=== PATIENT | male | born 1960 | race Caucasian/White ===

== ENCOUNTER 2017-06-27 13:50 | Inpatient (IN) | payer OTHER, MEDICARE, SELFPAY ==
[2017-07-01 19:44] VITALS: BMI 45.9
--- NOTE | 2017-07-02 03:36 | PC.NURSE ---
PT STATES HE FEELS BLOOD SUGAR IS LOW. [id number]. PT STATES HE IS BEEN SWEATING. REQUESTED PEANUT BUTTER AND RAINA CRACKERS. WILL CONTINUE TO MONITOR.
[2017-07-02 04:00] VITALS: BP 114/58; PULSE 96; RESP 20; TEMP 36.6; O2SAT 94
--- NOTE | 2017-07-02 04:09 | PC.NURSE ---
PT SLEPT TIL AROUND 0330 WHEN HE FELT SUGAR HAD DROPPED. PT HAD COMPLAINTS OF BACK PAIN, GIVEN TRAMADOL AND FLEXIRIL ORDERED. REQUESTED BENADRYL FOR SLEEP. PT GIVEN TYLENOL AT 0330 FOR BACK PAIN. NO SOB REPORTED. PT INDEPENDENT WITH ADLS.
[2017-07-02 06:48] LABS: INR 1.53 (0.9-1.1); Prothrombin Time 16.6 seconds (9.4-11.8)
[2017-07-02 08:00] VITALS: BP 129/81; PULSE 75; RESP 20; TEMP 36.4; O2SAT 94
--- NOTE | 2017-07-02 09:10 | P.PN_ITS ---
Internal Medicine - PN: Subj *Date: 07/02/17 *Time: 09:07 Exam Vital signs and Labs for Last 24 Hours: Temp Pulse Resp BP Pulse Ox 97.9 F 96 H 20 114/58 94 L 07/02/17 04:00 07/02/17 04:00 07/02/17 04:00 07/02/17 04:00 07/02/17 04:00 Short CBC 06/30/17 Range/Units 05:40 WBC 8.7 (4.8 - 10.8) K/MM3 Hgb 14.1 (14.1 - 18.0) g/dL Hct 43.8 (42.0 - 52.0) % Plt Count 196 (142 - 424) K/mm3 BMP 06/30/17 05:40 Sodium 136 Potassium 3.8 Chloride 100 Carbon Dioxide 30 BUN 24 H Creatinine 0.9 Glucose 193 H Calcium 9.3 Urine 06/29/17 Range/Units 09:20 Urine Color YELLOW (YELLOW - ) Urine Appearance CLEAR (CLEAR - ) Urine pH 5.5 (5.0 - 8.5) Ur Specific [place] 1.025 (1.005 - 1.030) Urine Protein NEGATIVE (NEG - ) mg/dL
--- NOTE | 2017-07-02 10:34 | P.PN_ITS ---
Internal Medicine - PN: Subj *Date: 07/02/17 *Time: 10:31 Interval history: No new complaints. Denies chest pain or hemoptysis Exam Vital signs and Labs for Last 24 Hours: Temp Pulse Resp BP Pulse Ox 97.6 F 75 20 129/81 94 L 07/02/17 08:00 07/02/17 08:00 07/02/17 08:00 07/02/17 08:00 07/02/17 08:00 Short CBC 06/30/17 Range/Units 05:40 WBC 8.7 (4.8 - 10.8) K/MM3 Hgb 14.1 (14.1 - 18.0) g/dL Hct 43.8 (42.0 - 52.0) % Plt Count 196 (142 - 424) K/mm3 BMP 06/30/17 05:40 Sodium 136 Potassium 3.8 Chloride 100 Carbon Dioxide 30 BUN 24 H Creatinine 0.9 Glucose 193 H Calcium 9.3 Urine 06/29/17 Range/Units 09:20 Urine Color YELLOW (YELLOW - ) Urine Appearance CLEAR (CLEAR - ) Urine pH 5.5 (5.0 - 8.5) Ur Specific [place] 1.025 (1.005 - 1.030) Urine Protein NEGATIVE (NEG - ) mg/dL I & O for Last 24 hours: Intake & Output 06/29/17 06/30/17 07/01/17 07/02/17 11:59 11:59 11:59 11:59 Intake Total 360 / 360 Balance 360 / 360 no acute distress - *Routine Respiratory Exam Present: CTA bilaterally - *Routine Cardiovascular Exam Present: RRR Comments: no murmur Assessment and Plan (1) Acute pulmonary embolus Current visit: Yes Status: Acute Category: Medical Code(s): I26.99 - Other pulmonary embolism without acute cor pulmonale (2) Type 2 diabetes mellitus Current visit: Yes Status: Acute Category: Medical Code(s): E11.9 - Type 2 diabetes mellitus without complications (3) DVT (deep venous thrombosis) Current visit: Yes Status: Acute Category: Medical Code(s): I82.409 - Acute embolism and thrombosis of unspecified deep veins of unspecified lower extremity (4) HBP (high blood pressure) Current visit: Yes Status: Acute Category: Medical Code(s): I10 - Essential (primary) hypertension - Assessment and plan all Dx Assessment and Plan for all problems:: Discharge home on Lovenox and Coumadin pending therapeutic INR
[2017-07-03 10:18] LABS: POC Glucose,Bedside 126 mg/dL
[2017-07-03 11:46] LABS: POC Glucose,Bedside 160 mg/dL
[2017-07-03 11:47] LABS: POC Glucose,Bedside 75 mg/dL
--- NOTE | 2017-07-08 21:16 | HMH.DCSUM ---
General - General Admission date: 06/27/17 Discharge date: 07/02/17 HPI HPI: Mr. Worthy is a 56 years old white male with history of hypertension, diabetes, and osteomyelitis status post LEFT leg amputation. He has been experiencing RIGHT upper extremity tingling below the elbow for 2 weeks that is normally relieved by laying it down. The past few days it has not even been relieved by laying down and seems to be getting worse. Yesterday he developed shortness of breath worse with exertion. He denies having chest pain, nausea, or vomiting. He denies having palpitations. He has been having dizziness. He was seen in the ER and will be admitted for observation. Objective Vital signs: Temp Pulse Resp BP Pulse Ox 97.6 F 75 20 129/81 94 L 07/02/17 08:00 07/02/17 08:00 07/02/17 08:00 07/02/17 08:00 07/02/17 08:00 Narrative: General appearance: alert, awake, no acute distress Eyes: EOM's w/normal ROM, PERRLA ENT: mucous membranes moist, nose normal, pharynx normal, tympanic membranes normal Neck: non-tender, no carotid bruit, full range of motion, supple Cardiovascular: regular rate & rhythm Respiratory: clear to auscultation ABD: non-distended, normal bowel sounds, no rebound, soft, no tenderness, no guarding Extremities: trace pretibial edema right LE Musculoskeletal: equal muscle strength, motor intact, sensation intact Skin: normal color Neuro: normal mood/affect, oriented, speech clear Hospital Course Hospital Course: He had a CXR that showed mild to moderate cardiomegaly and no acute chest pathology. He had a carotid doppler showing less than 20% stenosis bilaterally. His median radial, and ulnar strength seemed equal, though LEFT radial was a bit weaker than right. There were no other acute deficits. Cardiology was consulted. They felt he had severe SOA with concern for PE (hypoxia on ABG and right heart enlargement on echo) and angina pectoris (angina equivalent in senior living diabetic). They ordered a CTA of the chest and felt if there was no evidence of PE, they would proceed with a LHC. The CTA of the chest revealed numerous bilateral lower lobe filling defects. The patient was started on lovenox therapy. He then began c/o left flank pain and stated it felt like past kidney stones. He had a CT of the abdomen and pelvis revealing no stone. His SOA and CP improved. The tingling in the right arm resolved. He did have dopplers of the lower legs and a DVT was found in the left femoral vein. He remained on Lovenox and coumadin was started. He improved throughout his stay and was stable to be discharged home on lovenox and coumadin. Results - Imaging and Cardiology CT scan - chest Additional comments: CTA Chest 1. Multiple Bilateral pulmonary emboli. Numerous intraluminal filling defects/thrombi involve both lower lobe and upper lobes bilaterally. Slightly more pronounced findings on left. 2. COPD. Emphysematous changes. Mild thickening of central airways. No focal pneumonia. 3. Multiple old healing right rib fractures involving ribs 6 through 11th ribs. 4. At healing sixth rib fracture there also appears to be destructive expansile mass at inner margin of this 6th rib. This suspect for metastatic lesion has developed since our [address] It may be evident on interval outside studies which would be helpful for comparison. Warrants follow-up either case. 5. Bilateral lung nodules as detailed in text overall appears overall fairly stable. A few possibly incrementally smaller-none of these significantly larger is 2015. These will benefit from follow-up. Echo Additional comments: CONCLUSION: 1. Technically difficult study because of the patient's factor and poor acoustic windows. 2. Mildly enlarged left atrium, normal left ventricular size, mild concentric left ventricular hypertrophy, visually estimated ejection fraction 50% with no obvious regio
--- NOTE | 2017-07-08 21:20 | P.DS_ITS ---
General - General Admission date: 06/27/17 Discharge date: 07/02/17 HPI HPI: Mr. Worthy is a 56 years old white male with history of hypertension, diabetes , and osteomyelitis status post LEFT leg amputation. He has been experiencing RIGHT upper extremity tingling below the elbow for 2 weeks that is normally relieved by laying it down. The past few days it has not even been relieved by laying down and seems to be getting worse. Yesterday he developed shortness of breath worse with exertion. He denies having chest pain, nausea, or vomiting. He denies having palpitations. He has been having dizziness. He was seen in the ER and will be admitted for observation. Objective Vital signs: Temp Pulse Resp BP Pulse Ox 97.6 F 75 20 129/81 94 L 07/02/17 08:00 07/02/17 08:00 07/02/17 08:00 07/02/17 08:00 07/02/17 08:00 Narrative: General appearance: alert, awake, no acute distress Eyes: EOM's w/normal ROM, PERRLA ENT: mucous membranes moist, nose normal, pharynx normal, tympanic membranes normal Neck: non-tender, no carotid bruit, full range of motion, supple Cardiovascular: regular rate & rhythm Respiratory: clear to auscultation ABD: non-distended, normal bowel sounds, no rebound, soft, no tenderness, no guarding Extremities: trace pretibial edema right LE Musculoskeletal: equal muscle strength, motor intact, sensation intact Skin: normal color Neuro: normal mood/affect, oriented, speech clear Hospital Course Hospital Course: He had a CXR that showed mild to moderate cardiomegaly and no acute chest pathology. He had a carotid doppler showing less than 20% stenosis bilaterally. His median radial, and ulnar strength seemed equal, though LEFT radial was a bit weaker than right. There were no other acute deficits. Cardiology was consulted. They felt he had severe SOA with concern for PE ( hypoxia on ABG and right heart enlargement on echo) and angina pectoris (angina equivalent in [facility] diabetic). They ordered a CTA of the chest and felt if there was no evidence of PE, they would proceed with a LHC. The CTA of the chest revealed numerous bilateral lower lobe filling defects. The patient was started on lovenox therapy. He then began c/o left flank pain and stated it felt like past kidney stones. He had a CT of the abdomen and pelvis revealing no stone. His SOA and CP improved. The tingling in the right arm resolved. He did have dopplers of the lower legs and a DVT was found in the left femoral vein. He remained on Lovenox and coumadin was started. He improved throughout his stay and was stable to be discharged home on lovenox and coumadin. Results - Imaging and Cardiology CT scan - chest Additional comments: CTA Chest 1. Multiple Bilateral pulmonary emboli. Numerous intraluminal filling defects/ thrombi involve both lower lobe and upper lobes bilaterally. Slightly more pronounced findings on left. 2. COPD. Emphysematous changes. Mild thickening of central airways. No focal pneumonia. 3. Multiple old healing right rib fractures involving ribs 6 through 11th ribs. 4. At healing sixth rib fracture there also appears to be destructive expansile mass at inner margin of this 6th rib. This suspect for metastatic lesion has developed since our [address] It may be evident on interval outside studies which would be helpful for comparison. Warrants follow-up either case. 5. Bilateral lung nodules as detailed in text overall appears overall fairly stable. A few possibly incrementally smaller-none of these si
== END 2017-07-02 12:49 | disposition home or self-care (01) | DRG 176 ==
PROVIDERS: Admitting Provider Family Medicine; Emergency Provider Emergency Medicine; PCP Family Medicine; Visit Provider Family Medicine
DX: I26.99 Other pulmonary embolism without acute cor pulmonale (principal); C79.51 Secondary malignant neoplasm of bone; C79.72 Secondary malignant neoplasm of left adrenal gland; I82.409 Acute embolism and thrombosis of unspecified deep veins of unspecified lower extremity; E11.9 Type 2 diabetes mellitus without complications; I10 Essential (primary) hypertension; J44.9 Chronic obstructive pulmonary disease, unspecified; C73 Malignant neoplasm of thyroid gland; Z79.4 Long term (current) use of insulin; I51.7 Cardiomegaly
CPT/HCPCS: 36415; 70450; 71010; 71275; 74176; 80048; 80053; 81001; 82550; 82553; 82803; 82962; 83605; 83735; 83880; 84484; 85025; 85610; 85730; 87040; 93005; 93041; 93306; 93880; 93970; 96372; 99285

== ENCOUNTER 2017-07-03 09:05 | Emergency (ER) | payer OTHER, SELFPAY ==
[2017-07-03 09:10] VITALS: BP 163/87; PULSE 84; RESP 18; TEMP 36.7; O2SAT 96; BMI 44.6
[2017-07-03 09:45] LABS: ABG Base Excess 1.7 mmol/L (-2.4-2.3); ABG HCO3 25.6 mmhg (22.0-26.0); ABG Oxygen Saturation 95 % (90-100); ABG PCO2 37.1 mmhg (35.0-45.0); ABG PH 7.46 mmol/L (7.35-7.45); ABG PO2 77.7 mmhg (80-100); ABG TCO2 26.8 mmhg (23-27)
[2017-07-03 09:46] LABS: Allen's Test ACCEPTABLE; Oxygen ROOM AIR %; Source L RADIAL
--- NOTE | 2017-07-03 09:56 | HMH.EDGENADL ---
ED Disposition Clinical Impression: Pulmonary embolism, Thyroid cancer, Metastasis, COPD (chronic obstructive pulmonary disease), Diabetes 1.5, managed as type 1, DVT (deep venous thrombosis) Disposition: Home, Self-Care Condition on Discharge: Fair Additional Instructions: I HAD AN EXTENSIVE DISCUSSION WITH ROSA AND HIS . HE NEEDS TO REMAIN STILL, WITH HIS LEGS ELEVATED ABOVE THE HEART. 2- CONTINUE ANTICAOGULATION. 3- SEE DR PHELPS IMMEDIATELY PLANNED FOR A REEVALUTION. 4- RETURN IF NEEDED FOR ANY NEW SYMPTOMS. 5- FOLOW UP WITH THYROID CANCER ON NEW LESIONS ON THE RIBS. Referrals: Prem Phelps MD [Primary Care Provider] - - Critical Care Critical Care Time: No Attestation: On 07/03/17, the high probability of a clinically significant, sudden or life threatening deterioration of the following system(s) required my full and direct attention, intervention and personal management. The time I documented below is in addition to time spent performing reported procedures but includes the following listed in this critical care notation. Medical Decision Making - Medical Records MR Comment: i reviewed his last notes prior to discharge, no DC summary in the system yet. His2D echocardiogram and CTA from 06/28/17 report. Vital Signs: 07/03/17 09:10 Temperature 98.0 F Temperature Source Oral Pulse Rate [Right Brachial] 84 Respiratory Rate 18 Blood Pressure [Left Arm] 163/87 Blood Pressure Mean [Left Arm] 112 Blood Pressure Source [Left Arm] Automatic Cuff Blood Pressure Position [Left Arm] Sitting 02 Sat by Pulse Oximetry 96 Oxygen Delivery Method Room Air - Lab Data reviewed the blood gases. Result diagrams: 07/03/17 09:50 07/03/17 09:50 Orders (Tests/Meds): ED MEDICATIONS Generic Name Dose Route Start Last Admin Trade Name Freq PRN Reason Stop Dose Admin Sodium Chloride 10 ml 07/03/17 09:27 Saline Flush 10ml Syringe IV 08/02/17 09:26 NEEDED PRN Maintain IV Site ORDERS Category Date Time Status CT chest w/PE protocol request [CT Req chest with Cat Scan 07/03/17 09:29 Taken PE protocol] Stat Arterial Blood Gas Stat RT 07/03/17 09:29 Ordered 12-lead EKG Request [ECG Request by /Neto] Stat Y 07/03/17 09:32 Ordered - ECG Data Tracing #1 0950 nsr 84/MIN, BASEL LINE ARTIFACT, POOR R WAVE PROGRESION, NO ACUTE. ECG initial impression date: 07/03/17 ECG initial impression time: 10:17 Additional Comments: NSR 84/minutes , base line artifact, poor r wave progression, no acute. - Mio Inquiry Pt receiving controlled substance: No Mio was queried for this patient: No Medical Decision Making Narrative: I DISCUSSED THE CT SCAN WITH DR RODAS AND HE BELIEVES THAT THE PE IS BETTER, NO NEW PE OR SADDLE PE, HIS COUMADIN IS THERAPEUTIC AT 2.2, HE HAD A NEAR NORMAL EKG WITH NEGATIVE CARDIAC ENZYMES AND BNP. THE PATIENT REMAINED SYMPTOMATIC WITH FEELING OF DIZZINESS, I CALLED DR PHELPS , DISCUSSED WITH HIM HIS LAB, CT REPORT, PER DR PHELPS REQUEST ROSA WAS ABLE TO STAND UP UNASSISTED, SO DR PHELPS ASKED FOR HIM TO GO TO HIS OFFICE TO BE EVAUTED BY DR PHELPS PERSONALLY, ROSA AND HIS WERE AGREEABLE. HE WILL BE TRANPORTED TO DR PHELPS OFFICE BY A WHEEL CHAIR. General Adult HPI - General Chief complaint: PAIN Stated complaint: soa Time Seen by Provider: 07/03/17 09:10 Mode of Arrival: Wheelchair Source of Information: Patient, Spouse, Medical Record Limitations: No Limitations Description of Symptoms (Recalled from ER Triage Doc. by RN): soa ,nausea - History of Present Illness HPI narrative: This is a 56 yrs old [facility] patient of Dr Phelps who was recently discharged yesterday. 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 He was discharged after an admission for PE on lovenox and coumadin. Today, he woke up feeling fine and w
[2017-07-03 09:57] LABS: Basophils # 0.1 K/mm3 (0-0.2); Eosinophils # 0.2 K/mm3 (0.0-0.4); Eosinophils % 3.5 % (0.1-12.0); Hematocrit 43.5 % (42.0-52.0); Hemoglobin 14.2 g/dL (14.1-18.0); Lymphocytes % 15.5 K/mm3 (10-50); Mean Corpuscular HGB Conc 32.5 g/dL (31.8-35.4); Mean Corpuscular Hemoglobin 28.5 pg (27.0-31.2); Mean Corpuscular Volume 87.7 fl (80-94); Mean Platelet Volume 7.7 fl (7.4-10.4); Monocytes # 0.5 K/mm3 (0.1-1.0); Monocytes % 7.5 % (1.7-9.3); Neutrophils # 4.8 K/mm3 (1.8-7.8); Neutrophils % 72.5 % (37.0-80.0); Platelet Count 206 K/mm3 (142-424); Red Blood Count 4.96 M/mm3 (4.60-6.20); Red Cell Distribution Width 13.8 % (11.5-17.5); White Blood Count 6.7 K/mm3 (4.8-10.8)
--- NOTE | 2017-07-03 10:00 | ED_ITS ---
ED Disposition Clinical Impression: Pulmonary embolism, Thyroid cancer, Metastasis, COPD (chronic obstructive pulmonary disease), Diabetes 1.5, managed as type 1, DVT (deep venous thrombosis ) Disposition: Home, Self-Care Condition on Discharge: Fair Additional Instructions: I HAD AN EXTENSIVE DISCUSSION WITH ROSA AND HIS . HE NEEDS TO REMAIN STILL , WITH HIS LEGS ELEVATED ABOVE THE HEART. 2- CONTINUE ANTICAOGULATION. 3- SEE DR PHELPS IMMEDIATELY PLANNED FOR A REEVALUTION. 4- RETURN IF NEEDED FOR ANY NEW SYMPTOMS. 5- FOLOW UP WITH THYROID CANCER ON NEW LESIONS ON THE RIBS. Referrals: Prem Phelps MD [Primary Care Provider] - - Critical Care Critical Care Time: No Attestation: On 07/03/17, the high probability of a clinically significant, sudden or life threatening deterioration of the following system(s) required my full and direct attention, intervention and personal management. The time I documented below is in addition to time spent performing reported procedures but includes the following listed in this critical care notation. Medical Decision Making - Medical Records MR Comment: i reviewed his last notes prior to discharge, no DC summary in the system yet. His2D echocardiogram and CTA from 06/28/17 report. Vital Signs: 07/03/17 09:10 Temperature 98.0 F Temperature Source Oral Pulse Rate [Right Brachial] 84 Respiratory Rate 18 Blood Pressure [Left Arm] 163/87 Blood Pressure Mean [Left Arm] 112 Blood Pressure Source [Left Arm] Automatic Cuff Blood Pressure Position [Left Arm] Sitting 02 Sat by Pulse Oximetry 96 Oxygen Delivery Method Room Air - Lab Data reviewed the blood gases. Result diagrams: 07/03/17 09:50 07/03/17 09:50 Orders (Tests/Meds): ED MEDICATIONS Generic Name Dose Route Start Last Admin Trade Name Freq PRN Reason Stop Dose Admin Sodium Chloride 10 ml 07/03/17 09:27 Saline Flush 10ml Syringe IV 08/02/17 09:26 NEEDED PRN Maintain IV Site ORDERS Category Date Time Status CT chest w/PE protocol request [CT Req chest with Cat Scan 07/03/17 09: 29 Taken PE protocol] Stat Arterial Blood Gas Stat RT 07/03/17 09:29 Ordered 12-lead EKG Request [ECG Request by /Neto] Stat Y 07/03/17 09:32 Ordered - ECG Data Tracing #1 0950 nsr 84/MIN, BASEL LINE ARTIFACT, POOR R WAVE PROGRESION, NO ACUTE. ECG initial impression date: 07/03/17 ECG initial impression time: 10:17 Additional Comments: NSR 84/minutes , base line artifact, poor r wave progression, no acute. - Mio Inquiry Pt receiving controlled substance: No Mio was queried for this patient: No Medical Decision Making Narrative: I DISCUSSED THE CT SCAN WITH DR RODAS AND HE BELIEVES THAT THE PE IS BETTER, NO NEW PE OR SADDLE PE, HIS COUMADIN IS THERAPEUTIC AT 2.2, HE HAD A NEAR NORMAL EKG WITH NEGATIVE CARDIAC ENZYMES AND BNP. THE PATIENT REMAINED SYMPTOMATIC WITH FEELING OF DIZZINESS, I CALLED DR PHELPS , DISCUSSED WITH HIM HIS LAB, CT REPORT, PER DR PHELPS REQUEST ROSA WAS ABLE TO STAND UP UNASSISTED, SO DR PHELPS ASKED FOR HIM TO GO TO HIS OFFICE TO BE EVAUTED BY DR PHELPS PERSONALLY, ROSA AND HIS WERE AGREEABLE. HE WILL BE TRANPORTED TO DR PHELPS OFFICE BY A WHEEL CHAIR. General Adult H
[2017-07-03 10:04] LABS: INR 2.24 (0.9-1.1); Prothrombin Time 24.4 seconds (9.4-11.8)
--- NOTE | 2017-07-03 10:16 | CT_ITS ---
CT angio chest HISTORY: ITS.REASON: SOA, WEAKNESS PT HAS STAGE 4 THYROID CA ORDERING PHYSICIAN: Alejandra Renner MD PATIENT AGE: 56 years TECHNIQUE: Helical acquisition obtained following the bolus administration of 75 mL of Isovue 370 followed by a saline bolus. Axial, sagittal, and coronal reformatted images are generated and reviewed. Contrast injected was repeated as initially contrast leaked out around the IV and initial injection demonstrated poor opacification of the pulmonary arteries. COMPARISON: 06/28/2017 FINDINGS: Fairly extensive bilateral acute pulmonary emboli once again noted. The embolic burden is slightly last on today's study. Nonetheless, or cystic filling defects are present in both upper and lower lobe pulmonary arteries. No saddle embolus apparent. Emphysematous changes with obstructive chronic bronchitis once again noted with multiple old bilateral rib fractures.. There is focal consolidation involving the left upper lobe posteriorly which is unchanged represent an area of chronic consolidation similar when compared to an older exam of 04/08/2015. Small bilateral pulmonary nodules are once again noted unchanged. There is a destructive process involving the right sixth rib posteriorly Upper abdominal images show no acute finding. IMPRESSION: 1. Bilateral pulmonary emboli once again noted. The emboli are slightly less extensive on today's exam. 2. COPD with old bilateral rib fractures. 3. Destructive lesion involving the right 6 rib posteriorly. 4. No change in the stable pulmonary nodules.
[2017-07-03 10:21] LABS: Alanine Aminotransferase 135 U/L (12-78); Albumin Level 3.2 gm/dL (3.4-5.0); Albumin/Globulin Ratio 0.7 (1.1-1.8); Alkaline Phosphatase 152 U/L (46-116); Anion Gap 10.6 mEq/L (5-15); Aspartate Amino Transferase 79 U/L (15-37); Bilirubin,Total 0.4 mg/dL (0.2-1.0); Blood Urea Nitrogen 20 mg/dL (7-18); CKMB Relative Index 2.7 U/L (0-4.0); Calcium 8.8 mg/dL (8.5-10.1); Carbon Dioxide 30 mmol/L (21.0-32.0); Chloride 99 mmol/L (98-107); Creatine Kinase 127 U/L (38-174); Creatine Kinase MB 3.4 mg/ml (0.0-3.6); Creatinine Clearance Estimated 93 mg/ml (0-300); Creatinine,Serum 1.04 mg/dL (0.70-1.30); Estimated Glomerular Filt Rate > 60 ml/min (>60); GFR (African American) > 60 ML/MIN (>60); Globulin 4.4 gm/dl (1.3-3.2); Glucose 214 mg/dL (74-106); Potassium 4.6 mmoL/L (3.5-5.1); Sodium 135 mmol/L (136-145); Total Protein,Serum 7.6 gm/dL (6.4-8.2); Troponin I < 0.02 ng/ml (0.00-0.06)
[2017-07-03 11:00] LABS: Activated Partial Thrombo Time 37.6 seconds (23.6-34.0)
[2017-07-03 12:37] VITALS: BP 132/84; PULSE 87; RESP 14; TEMP 36.9; O2SAT 98
== END 2017-07-03 12:40 | disposition home or self-care (01) ==
PROVIDERS: Emergency Medicine; Emergency Provider Emergency Medicine; Family Provider Family Medicine; PCP Family Medicine
DX: I82.409 Acute embolism and thrombosis of unspecified deep veins of unspecified lower extremity (principal); E11.9 Type 2 diabetes mellitus without complications; I10 Essential (primary) hypertension; C73 Malignant neoplasm of thyroid gland; C79.9 Secondary malignant neoplasm of unspecified site; J44.9 Chronic obstructive pulmonary disease, unspecified
CPT/HCPCS: 71275; 80053; 82550; 82553; 82803; 83880; 84484; 85025; 85610; 85730; 93005; 93041; 99284; Q9967

== ENCOUNTER 2017-08-15 14:38 | Emergency (ER) | payer OTHER, SELFPAY ==
[2017-08-15 14:40] VITALS: BP 147/88; PULSE 108; RESP 20; TEMP 37; O2SAT 100; BMI 47.5
--- NOTE | 2017-08-15 14:47 | HMH.EDGENADL ---
ED Disposition Clinical Impression: Laceration of right ring finger Qualifiers: Encounter type: initial encounter Damage to nail status: with damage Foreign body presence: without foreign body Qualified Code(s): S61.314A - Laceration without foreign body of right ring finger with damage to nail, initial encounter Disposition: Home, Self-Care Condition on Discharge: Good Instructions: DI for Open Laceration Additional Instructions: Follow-up with hand surgery clinic at [facility], earliest available appointment, preferable to be seen within 1 week. Call tomorrow to make appointment. [phone] Additional instructions for OPEN LACERATION: Clean the wound daily and apply bandage and splint. Return to the emergency room if increasing pain, swelling, redness, red streaks, pus drainage, or fever. Additional instructions for CONTROLLED SUBSTANCES: You have been prescribed a medication that is a controlled substance. Controlled substances include pain medications known as opiates and sedative nerve medications known as benzodiazepines. Some common opiates include: Codeine (such as Tylenol #3) Hydrocodone (Vicodin, Lortab, Lorcet, [place]) Oxycodone (Percocet, Percodan, Oxycodone, Oxy IR) Some common benzodiazepines include: Diazepam (Valium) Lorazepam (Ativan) Alprazolam (Xanax) Clonazepam (Klonopin) Oxazepam (Serax) All of these controlled substances are highly addictive and frequently abused. Misuse can and frequently does lead to addiction as well as overdose and . Medication should be stored in a locked cabinet or other secure storage unit. Do not store the medication in a motor vehicle. Short term supplies, 3 days or less, are prescribed because of the highly addictive nature of the medication. Any of the controlled substance medication NOT taken should be disposed of properly and NOT SAVED. The recommended method of disposing of unused medications is: Place the medicines in a sealable plastic bag. If the medicine is a solid, crush it or add water to dissolve it. Add something undesirable (cat litter, coffee grounds, etc.) Dispose of sealed bag in household trash Do not flush or pour unused medicines down a sink or drain. Controlled substances should not be shared, given away or sold. Because of the addictive nature and frequent abuse, these medications are sometimes stolen. These medications should be kept in a safe place where they cannot be stolen. Do not keep them in your car or purse. Lost or stolen prescriptions for controlled substances WILL NOT BE REFILLED in this emergency department, regardless of whether a police report was filed. Prescriptions: Oxycodone HCl/Acetaminophen [Percocet 5/325mg tablet] 1 tab PO Q6HP PRN #6 tab PRN Reason: Moderate To Severe Pain Clindamycin HCl [Clindamycin 300mg Cap] 300 mg PO QID #28 cap Referrals: Prem Pandya MD [Primary Care Provider] - - Critical Care Critical Care Time: No Attestation: On , the high probability of a clinically significant, sudden or life threatening deterioration of the following system(s) required my full and direct attention, intervention and personal management. The time I documented below is in addition to time spent performing reported procedures but includes the following listed in this critical care notation. Medical Decision Making Vital Signs: 08/15/17 14:40 Temperature 98.6 F Temperature Source Oral Pulse Rate [Left Radial] 108 H Respiratory Rate 20 Blood Pressure [Left Arm] 147/88 Blood Pressure Mean [Left Arm] 107 02 Sat by Pulse Oximetry 100 Oxygen Delivery Method Room Air Orders (Tests/Meds): ED MEDICATIONS Discontinued Medications Generic Name Dose Route Start Last Admin Trade Name Freq PRN Reason Stop Dose Admin Bupivacaine HCl 50 mg 08/15/17 14:54 Bupivacaine 0.5% 30ml Vial SQ 08/15/17 14:55 ONCE ONE Clindamyc
--- NOTE | 2017-08-15 15:01 | XR_ITS ---
XR finger RT min 2V CLINICAL INDICATION: Laceration to the distal aspect of the fourth finger ITS.REASON: cut with saw ORDERING PHYSICIAN: Aly Nix MD PATIENT AGE: 56 years COMPARISON: None FINDINGS: No fracture or dislocation. No radiopaque foreign body or soft tissue gas. IMPRESSION: Negative right fourth finger
[2017-08-15 16:51] VITALS: BP 117/60; PULSE 85; RESP 20; TEMP 36.6; O2SAT 95
== END 2017-08-15 16:51 | disposition home or self-care (01) ==
PROVIDERS: Emergency Provider Emergency Medicine; Family Provider Family Medicine; PCP Family Medicine
DX: S61.314A Laceration without foreign body of right ring finger with damage to nail, initial encounter (principal); W31.2XXA Contact with powered woodworking and forming machines, initial encounter; Y92.9 Unspecified place or not applicable; Z23 Encounter for immunization; Z88.1 Allergy status to other antibiotic agents; Z88.2 Allergy status to sulfonamides; Z88.8 Allergy status to other drugs, medicaments and biological substances
CPT/HCPCS: 73140; 90471; 90715; 99281

== ENCOUNTER → 2017-10-23 09:20 | Outpatient (POV) | payer OTHER, SELFPAY ==
[2017-10-23 09:34] VITALS: BP 139/70; PULSE 105; O2SAT 97
--- NOTE | 2017-10-23 10:11 | HMH.PMCON ---
Assessment and Plan (1) Degenerative joint disease (DJD) of lumbar spine Current visit: Yes Status: Chronic Category: Medical Code(s): M47.816 - Spondylosis without myelopathy or radiculopathy, lumbar region (2) Lumbar radiculopathy Current visit: Yes Status: Chronic Category: Medical Code(s): M54.16 - Radiculopathy, lumbar region - Assessment and plan all Dx Assessment and Plan for all problems:: We will plan a L4-L5 lumbar epidural steroid injection. Patient is currently not undergoing any treatment for active cancer. Patient is continually monitored. Patient is diabetic we discussed decreasing the steroid dose in order to accommodate this. Patient is on anticoagulation therapy with Coumadin. Patient will have to have permission from primary care physician to be off the medication 5 days prior to her injection. Patient stands this. Patient's tried and failed physical therapy, anti-inflammatories, medications. Follow-up with the patient after his injection and reassess his symptoms at that time. This note was dictated using voice recognition software and may contain errors or omissions HPI - Data of Consult Consult date: 10/23/17 Requesting Physician: Loan Pham APRN Primary Care Provider: Prem Pandya MD Family Provider: Prem Pandya MD - Consult Narrative Reason for consult: Back pain History of present illness: Mr. Worthy is a 56 year old male who presents today for consultation on low back pain. Patient had a tumor removed from his spine 3 years ago. Patient states the tumor was malignant. Patient also had a diagnosis of stage IV thyroid cancer. Patient states his pain today is mainly in his lower back and goes down his right leg at times. Patient has a left leg prosthetic. Patient states that he has tingling down his right leg. Patient states standing too long increases his pain while bracing and resting decreases pain. Patient does have an MRI showing pathology of bulging disks along with facet arthropathy. Patient also has tried Flexeril, Percocet, gabapentin, Valium. Patient is currently on gabapentin 600 mg 1 p.o. twice daily. Patient states he is doing well with this. Patient is interested in therapies that can have more long-term. CC: Loan Pham APRN [facility] History I have reviewed the patient's past medical history: Yes Medical History: Reports:: Cancer (THYROID), Diabetes Mellitus Type 2, Hypertension Other Medical History: Reports: Thyroid Disease Amputation: Yes (LEFT BKA) - *Social History Educational Level: Attended High School Smoking Status: Never smoker Alcohol Intake: never Alcohol Intake Frequency:: 0-2 drinks per day Occupational Status: unemployed Housing: house Household Members: spouse - Psychiatric History Expresses thoughts of harming self/others: None Suicide Plan Description: No Plan *Family Hx:: No significant family history, Adopted Review of Systems - Review of Systems ROS General: no recent weight change, no fever, no sleep disturbances Respiratory: no cough, no shortness of air, no recurring pulmonary infections Cardiovascular/Peripheral Vascular: No chest pain, No palpitations, no edema, no shortness of breath. Gastrointestinal: no incontinence, normal bowel movements reported Genitourinary: no incontinence Musculoskeletal: Neck pain, right leg Psychiatric: normal mood/ affect Neurological: [denies weakness in extremities], [denies balance issues] Meds Home Medications Medication Instructions Recorded Confirmed Type Acetaminophen [8 Hour] 650 mg PO BID 07/01/17 07/01/17 History Calcium Carbonate [Calcium] 2,000 mg PO DAILY 07/01/17 07/01/17 History Cyclobenzaprine HCl 10 mg PO Q8HP PRN 07/01/17 07/01/17 History [Cyclobenzaprine 10mg Tab] Ephedrine Sulfate/Guaifenesin 1 tab PO BIDP PRN 07/01/17 07/01/17 History [Bronkaid Dual Action Caplet] Etodolac [Etodolac 500mg Tab] 500 mg
--- NOTE | 2017-10-23 10:14 | P.CONS_ITS ---
Assessment and Plan (1) Degenerative joint disease (DJD) of lumbar spine Current visit: Yes Status: Chronic Category: Medical Code(s): M47.816 - Spondylosis without myelopathy or radiculopathy, lumbar region (2) Lumbar radiculopathy Current visit: Yes Status: Chronic Category: Medical Code(s): M54.16 - Radiculopathy, lumbar region - Assessment and plan all Dx Assessment and Plan for all problems:: We will plan a L4-L5 lumbar epidural steroid injection. Patient is currently not undergoing any treatment for active cancer. Patient is continually monitored. Patient is diabetic we discussed decreasing the steroid dose in order to accommodate this. Patient is on anticoagulation therapy with Coumadin. Patient will have to have permission from primary care physician to be off the medication 5 days prior to her injection. Patient stands this. Patient's tried and failed physical therapy, anti-inflammatories, medications. Follow-up with the patient after his injection and reassess his symptoms at that time. This note was dictated using voice recognition software and may contain errors or omissions HPI - Data of Consult Consult date: 10/23/17 Requesting Physician: Loan Pham APRN Primary Care Provider: Prem Pandya MD Family Provider: Prem Pandya MD - Consult Narrative Reason for consult: Back pain History of present illness: Mr. Worthy is a 56 year old male who presents today for consultation on low back pain. Patient had a tumor removed from his spine 3 years ago. Patient states the tumor was malignant. Patient also had a diagnosis of stage IV thyroid cancer. Patient states his pain today is mainly in his lower back and goes down his right leg at times. Patient has a left leg prosthetic. Patient states that he has tingling down his right leg. Patient states standing too long increases his pain while bracing and resting decreases pain. Patient does have an MRI showing pathology of bulging disks along with facet arthropathy. Patient also has tried Flexeril, Percocet, gabapentin, Valium. Patient is currently on gabapentin 600 mg 1 p.o. twice daily. Patient states he is doing well with this. Patient is interested in therapies that can have more long- term. CC: Loan Pham APRN [facility] History I have reviewed the patient's past medical history: Yes Medical History: Reports:: Cancer (THYROID), Diabetes Mellitus Type 2, Hypertension Other Medical History: Reports: Thyroid Disease Amputation: Yes (LEFT BKA) - *Social History Educational Level: Attended High School Smoking Status: Never smoker Alcohol Intake: never Alcohol Intake Frequency:: 0-2 drinks per day Occupational Status: unemployed Housing: house Household Members: spouse - Psychiatric History Expresses thoughts of harming self/others: None Suicide Plan Description: No Plan *Family Hx:: No significant family history, Adopted Review of Systems - Review of Systems ROS General: no recent weight change, no fever, no sleep disturbances Respiratory: no cough, no shortness of air, no recurring pulmonary infections Cardiovascular/Peripheral Vascular: No chest pain, No palpitations, no edema, no shortness of breath. Gastrointestinal: no incontinence, normal bowel movements reported Genitourinary: no incontinence Musculoskeletal: Neck pain, right leg Psychiatric: normal mood/ affect Neurological: [denies weakness in extremities], [denies balance issues] Meds Home Medications Me
== END ==
PROVIDERS: Family Provider Family Medicine; PCP Family Medicine; Visit Provider Clinical Nurse Specialist Family Health
DX: M47.816 Spondylosis without myelopathy or radiculopathy, lumbar region (principal); M54.16 Radiculopathy, lumbar region
CPT/HCPCS: 99202

== ENCOUNTER → 2017-12-04 09:21 | Outpatient (POV) | payer BC, SELFPAY ==
[2017-12-04 09:31] VITALS: BP 111/54; PULSE 77; RESP 18; O2SAT 97; BMI 33.3
--- NOTE | 2017-12-04 09:33 | HMH.PAINSOAP ---
[facility] Pain Management SOAP Note Subjective:: Patient is a pleasant 56-year-old white male who presents today for follow-up after lumbar epidural steroid injection. Patient states that he is doing much better after his injection. Patient states he can bend and pick things off the floor are easily. Patient states that his pain has been reduced. Patient states that he got 80% relief after the injection. Patient would like to repeat this. Patient states he did not have any effect on his sugar after the injection. Patient is on Coumadin however we do have permission for him to come off prior to injections. patient rates his pain of 5 out of 10 today. ROS General: no recent weight change, no fever, no sleep disturbances Respiratory: no cough, no shortness of air, no recurring pulmonary infections Cardiovascular/Peripheral Vascular: No chest pain, No palpitations, no edema, no shortness of breath. Gastrointestinal: no incontinence, normal bowel movements reported Genitourinary: no incontinence Musculoskeletal: Back pain, bilateral leg pain Psychiatric: normal mood/ affect Neurological: [denies weakness in extremities], [denies balance issues] Objective:: Physical Exam General: Alert and oriented x3, no acute distress, pleasant and cooperative, [on room air] Lungs: Resps E/U, Symmetrical chest expansion, Eyes: PERRL Musculoskeletal: Flexion and extension of lumbar spine somewhat guarded secondary to pain, deep tendon reflexes normal, strength in upper and lower extremities [5/5], [abnormal gait noted], positive straight leg raise test at 30? Neurological: speech clear, manager talent management equal, no gross sensory deficits Assessment:: Degenerative disc disease of lumbar spine with lumbar radiculopathy symptoms Plan:: We will schedule another lumbar epidural L5-S1 injection. Patient has done well with these in the past. Patient has tried and failed physical therapy, anti-inflammatories, medications. I will follow-up with this patient after his injection. Patient already has permission to come off his anticoagulation therapy. This note was dictated using voice recognition software and may contain errors or omissions
--- NOTE | 2017-12-04 09:37 | P.CONS_ITS ---
[facility] Pain Management SOAP Note Subjective:: Patient is a pleasant 56-year-old white male who presents today for follow-up after lumbar epidural steroid injection. Patient states that he is doing much better after his injection. Patient states he can bend and pick things off the floor are easily. Patient states that his pain has been reduced. Patient states that he got 80% relief after the injection. Patient would like to repeat this. Patient states he did not have any effect on his sugar after the injection. Patient is on Coumadin however we do have permission for him to come off prior to injections. patient rates his pain of 5 out of 10 today. ROS General: no recent weight change, no fever, no sleep disturbances Respiratory: no cough, no shortness of air, no recurring pulmonary infections Cardiovascular/Peripheral Vascular: No chest pain, No palpitations, no edema, no shortness of breath. Gastrointestinal: no incontinence, normal bowel movements reported Genitourinary: no incontinence Musculoskeletal: Back pain, bilateral leg pain Psychiatric: normal mood/ affect Neurological: [denies weakness in extremities], [denies balance issues] Objective:: Physical Exam General: Alert and oriented x3, no acute distress, pleasant and cooperative, [ on room air] Lungs: Resps E/U, Symmetrical chest expansion, Eyes: PERRL Musculoskeletal: Flexion and extension of lumbar spine somewhat guarded secondary to pain, deep tendon reflexes normal, strength in upper and lower extremities [5/5], [abnormal gait noted], positive straight leg raise test at 30 ? Neurological: speech clear, imaging analyst equal, no gross sensory deficits Assessment:: Degenerative disc disease of lumbar spine with lumbar radiculopathy symptoms Plan:: We will schedule another lumbar epidural L5-S1 injection. Patient has done well with these in the past. Patient has tried and failed physical therapy, anti-inflammatories, medications. I will follow-up with this patient after his injection. Patient already has permission to come off his anticoagulation therapy. This note was dictated using voice recognition software and may contain errors or omissions
== END ==
PROVIDERS: Family Provider Family Medicine; PCP Family Medicine; Visit Provider Clinical Nurse Specialist Family Health
DX: M54.16 Radiculopathy, lumbar region (principal)
CPT/HCPCS: 99212

== ENCOUNTER → 2018-01-21 11:24 | Outpatient (POV) | payer BC, SELFPAY ==
[2018-01-21 11:45] VITALS: BP 134/53; PULSE 69; RESP 18; O2SAT 98; BMI 33.7
--- NOTE | 2018-01-21 11:51 | HMH.PAINSOAP ---
[facility] Pain Management SOAP Note Subjective:: Patient is a pleasant 57-year-old white male who we are treating for low back pain with lumbar radiculopathy symptoms. Patient is following up after his second lumbar epidural steroid injection. Patient got 80-90% of his pain symptoms. His pain is just beginning to return however he states that nothing near what it used to be. Patient is on Coumadin and has permission to come off for his epidural injections. Patient would like to series of 3 epidurals. He rates his pain a 4 out of 10 today. ROS General: no recent weight change, no fever, no sleep disturbances Respiratory: no cough, no shortness of air, no recurring pulmonary infections Cardiovascular/Peripheral Vascular: No chest pain, No palpitations, no edema, no shortness of breath. Gastrointestinal: no incontinence, normal bowel movements reported Genitourinary: no incontinence Musculoskeletal: Back pain, leg pain Psychiatric: normal mood/ affect, , Neurological: [denies balance issues] Objective:: Physical Exam General: Alert and oriented x3, no acute distress, pleasant and cooperative, [on room air] Lungs: Resps E/U, Symmetrical chest expansion, Eyes: PERRL Musculoskeletal: Flexion and extension of lumbar spine somewhat guarded secondary to pain, deep tendon reflexes normal, strength in upper and lower extremities [5/5], [abnormal gait noted] patient amputation of his left lower leg Neurological: speech clear, apartment hotel manager equal, no gross sensory deficits Assessment:: Degenerative disc disease of the lumbar spine with lumbar radiculopathy Plan:: We will schedule an L5-S1 lumbar epidural steroid injection for the patient. Patient has permission to come off of his anticoagulation. Given the efficacy of these injections in the past I believe it would be beneficial to complete the series of 3 epidurals. This note was dictated using voice recognition software and may contain errors or omissions
== END ==
PROVIDERS: Family Provider Family Medicine; PCP Family Medicine; Visit Provider Clinical Nurse Specialist Family Health
DX: M54.16 Radiculopathy, lumbar region (principal)
CPT/HCPCS: 99212

== ENCOUNTER → 2018-02-01 09:38 | Outpatient (CLI) | payer BC, SELFPAY ==
[2018-02-01 09:58] LABS: INR 0.92 (0.9-1.1); Prothrombin Time 9.5 seconds (9.4-11.8)
== END ==
PROVIDERS: Visit Provider Anesthesiology
DX: Z79.01 Long term (current) use of anticoagulants (principal); Z51.81 Encounter for therapeutic drug level monitoring
CPT/HCPCS: 36415; 85610

== ENCOUNTER → 2018-02-18 12:29 | Outpatient (POV) | payer BC, SELFPAY ==
--- NOTE | 2018-02-18 12:42 | HMH.PAINSOAP ---
[facility] Pain Management SOAP Note Subjective:: Patient is a pleasant 57-year-old white male who presents today for follow-up after his third lumbar epidural steroid injection. Patient states this helped him up to 80%. He rates his pain at 3 out of 10. Patient states he did have some elevation in his sugar after his injection. Patient states that this has improved. ROS General: no recent weight change, no fever, no sleep disturbances Respiratory: no cough, no shortness of air, no recurring pulmonary infections Cardiovascular/Peripheral Vascular: No chest pain, No palpitations, no edema, no shortness of breath. Gastrointestinal: no incontinence, normal bowel movements reported Genitourinary: no incontinence Musculoskeletal: Back pain Psychiatric: normal mood/ affect Neurological: [denies weakness in extremities], [denies balance issues] Objective:: Physical Exam General: Alert and oriented x3, no acute distress, pleasant and cooperative, [on room air] Lungs: Resps E/U, Symmetrical chest expansion, Eyes: PERRL Musculoskeletal: Flexion and extension of bar spine somewhat guarded secondary to pain, deep tendon reflexes normal, strength in upper and lower extremities [5/5], [abnormal gait noted], patient does have amputation of left lower extremity and utilizes a prosthetic Neurological: speech clear, director of finance equal, no gross sensory deficits Assessment:: Degenerative disc disease of the lumbar spine with lumbar radiculopathy symptoms Plan:: We will follow-up with the patient in 2 months to see how he is doing. Patient may need some injections in the future. Patient is doing well at this time. Patient's been instructed to call the office if he has any issues prior to his next appointment. This note was dictated using voice recognition software and may contain errors or omissions
[2018-02-18 12:50] VITALS: BP 140/68; PULSE 99; RESP 18; O2SAT 98; BMI 46.2
== END ==
PROVIDERS: Family Provider Family Medicine; PCP Family Medicine; Visit Provider Clinical Nurse Specialist Family Health
DX: M51.16 Intervertebral disc disorders with radiculopathy, lumbar region (principal)
CPT/HCPCS: 99213

== ENCOUNTER → 2018-04-22 08:43 | Outpatient (POV) | payer BC, MEDICARE, SELFPAY ==
--- NOTE | 2018-04-22 09:03 | HMH.PAINSOAP ---
[facility] Pain Management SOAP Note Subjective:: Patient is a pleasant 57-year-old white male who presents today for follow-up. Patient had around 3 epidural steroid injections which is helped his symptoms about 90%. He rates his pain a 2 out of 10 today. He states he is doing very well. Patient would like to try for a another epidural around [place] time. Patient states he does get some flares in his pain when the weather is cold. Patient states overall that he is much more functional. Patient's tried anti-inflammatories in the past with no success. Patient is continuing a home stretching program. ROS General: no recent weight change, no fever, no sleep disturbances Respiratory: no cough, no shortness of air, no recurring pulmonary infections Cardiovascular/Peripheral Vascular: No chest pain, No palpitations, no edema, no shortness of breath. Gastrointestinal: no incontinence, normal bowel movements reported Genitourinary: no incontinence Musculoskeletal: Back pain Psychiatric: normal mood/ affect Neurological: [denies weakness in extremities], [denies balance issues] Objective:: Physical Exam General: Alert and oriented x3, no acute distress, pleasant and cooperative, [on room air] Lungs: Resps E/U, Symmetrical chest expansion, Eyes: PERRL Musculoskeletal: Flexion and extension of lumbar spine somewhat guarded secondary to pain, deep tendon reflexes normal, strength in upper and lower extremities [5/5], antalgic gait noted, patient has amputation of left lower extremity and utilizes a prosthetic Neurological: speech clear, packing machine can feeder equal, no gross sensory deficits Assessment:: Degenerative disc disease lumbar spine with lumbar myelopathy symptoms Plan:: We will schedule an L4-L5 lumbar epidural steroid injection for the patient in several weeks. Patient has done so well with this in the past I believe it would be advantageous for him. Patient does have permission to come off of his Coumadin prior to his injection. I will follow-up with the patient after his injection. This note was dictated using voice recognition software and may contain errors or omissions
--- NOTE | 2018-04-22 09:06 | P.CONS_ITS ---
[facility] Pain Management SOAP Note Subjective:: Patient is a pleasant 57-year-old white male who presents today for follow-up. Patient had around 3 epidural steroid injections which is helped his symptoms about 90%. He rates his pain a 2 out of 10 today. He states he is doing very well. Patient would like to try for a another epidural around [place] time. Patient states he does get some flares in his pain when the weather is cold. Patient states overall that he is much more functional. Patient's tried anti- inflammatories in the past with no success. Patient is continuing a home stretching program. ROS General: no recent weight change, no fever, no sleep disturbances Respiratory: no cough, no shortness of air, no recurring pulmonary infections Cardiovascular/Peripheral Vascular: No chest pain, No palpitations, no edema, no shortness of breath. Gastrointestinal: no incontinence, normal bowel movements reported Genitourinary: no incontinence Musculoskeletal: Back pain Psychiatric: normal mood/ affect Neurological: [denies weakness in extremities], [denies balance issues] Objective:: Physical Exam General: Alert and oriented x3, no acute distress, pleasant and cooperative, [on room air] Lungs: Resps E/U, Symmetrical chest expansion, Eyes: PERRL Musculoskeletal: Flexion and extension of lumbar spine somewhat guarded secondary to pain, deep tendon reflexes normal, strength in upper and lower extremities [5/5], antalgic gait noted, patient has amputation of left lower extremity and utilizes a prosthetic Neurological: speech clear, electrical prospecting supervisor equal, no gross sensory deficits Assessment:: Degenerative disc disease lumbar spine with lumbar myelopathy symptoms Plan:: We will schedule an L4-L5 lumbar epidural steroid injection for the patient in several weeks. Patient has done so well with this in the past I believe it would be advantageous for him. Patient does have permission to come off of his Coumadin prior to his injection. I will follow-up with the patient after his injection. This note was dictated using voice recognition software and may contain errors or omissions
[2018-04-22 09:10] VITALS: BP 170/82; PULSE 87; RESP 18; O2SAT 98; BMI 44.0
== END ==
PROVIDERS: Family Provider Family Medicine; PCP Family Medicine; Visit Provider Clinical Nurse Specialist Family Health
DX: M51.36 Other intervertebral disc degeneration, lumbar region (principal); G95.89 Other specified diseases of spinal cord
CPT/HCPCS: 99213

== ENCOUNTER → 2018-06-07 08:00 | Outpatient (CLI) | payer BC, SELFPAY ==
[2018-06-07 08:44] LABS: Glucose,Random 90 mg/dL (70-110)
[2018-06-07 08:45] LABS: INR 0.96 (0.9-1.1); Prothrombin Time 9.9 seconds (9.4-11.8)
== END ==
PROVIDERS: Visit Provider Clinical Nurse Specialist Family Health
DX: Z51.81 Encounter for therapeutic drug level monitoring (principal); Z79.01 Long term (current) use of anticoagulants; I82.409 Acute embolism and thrombosis of unspecified deep veins of unspecified lower extremity; E11.9 Type 2 diabetes mellitus without complications
CPT/HCPCS: 36415; 82947; 85610

== ENCOUNTER → 2018-07-01 13:16 | Outpatient (POV) | payer BC, MEDICARE, SELFPAY ==
[2018-07-01 13:36] VITALS: BP 133/73; PULSE 90; RESP 18; O2SAT 98; BMI 48.7
--- NOTE | 2018-07-01 13:51 | P.CONS_ITS ---
[facility] Pain Management SOAP Note Subjective:: Patient is a pleasant 57-year-old white male who we are treating for low back pain secondary to degenerative disc disease lumbar spine with lumbar radiculopathy. Patient rates pain 1 out of 10 and is doing well after his lumbar epidural steroid injection. Patient would like to repeat this in 3-4 mon ths. Patient is on blood thinner however he does have permission to come off of it for his injections. ROS General: no recent weight change, no fever, no sleep disturbances Respiratory: no cough, no shortness of air, no recurring pulmonary infections Cardiovascular/Peripheral Vascular: No chest pain, No palpitations, no edema, no shortness of breath. Gastrointestinal: no incontinence, normal bowel movements reported Genitourinary: no incontinence Musculoskeletal: Back pain, leg pain Psychiatric: normal mood/ affect Neurological: [denies weakness in extremities], [denies balance issues] Objective:: Physical Exam General: Alert and oriented x3, no acute distress, pleasant and cooperative, [on room air] Lungs: Resps E/U, Symmetrical chest expansion, Eyes: PERRL Musculoskeletal: Flexion and extension of lumbar spine somewhat guarded secondary to pain, deep tendon reflexes normal, strength in upper and lower extremities [5/5], [abnormal gait noted] Neurological: speech clear, plugger worker equal, no gross sensory deficits Assessment:: Degenerative disc disease lumbar spine with lumbar radiculopathy Plan:: We will schedule a L4-L5 lumbar epidural steroid injection for the patient in 3- 4 months. I will follow-up with him after this. Patient's been instructed to call the office if he has any issues prior to his next appointment. This note was dictated using voice recognition software and may contain errors or omissions
== END ==
PROVIDERS: PCP Family Medicine; Visit Provider Clinical Nurse Specialist Family Health
DX: M51.36 Other intervertebral disc degeneration, lumbar region (principal)
CPT/HCPCS: 99213

== ENCOUNTER 2018-10-16 13:56 | Observation (INO) ==
--- NOTE | 2018-10-16 14:30 | Emergency Department Note ---
ED Disposition Clinical Impression: DVT (deep venous thrombosis), Cholecystitis Disposition: Admitted As Inpatient Condition on Discharge: Serious Referrals: Prem Pandya MD [Primary Care Provider] - Time of Disposition: 17:34 - Critical Care Critical Care Time: No Attestation: On 10/16/18, the high probability of a clinically significant, sudden or life threatening deterioration of the following system(s) required my full and direct attention, intervention and personal management. The time I documented below is in addition to time spent performing reported procedures but includes the following listed in this critical care notation. Medical Decision Making - Medical Records Medical records reviewed: Yes: I reviewed the patient's medical records. - Mio Inquiry Pt receiving controlled substance: No Mio was queried for this patient: No Vital Signs: 10/16/18 14:08 10/16/18 17:05 Temperature 97.3 F L Temperature Source Temporal Artery Scan Pulse Rate [Right Brachial] 81 104 H Respiratory Rate 18 Blood Pressure [Right Arm] 154/75 H 135/93 H Blood Pressure Mean [Right Arm] 101 107 Blood Pressure Source [Right Arm] Automatic Cuff Automatic Cuff 02 Sat by Pulse Oximetry 100 97 Oxygen Delivery Method Room Air Room Air - Lab Data Lab results reviewed: Yes: I reviewed the patient's lab results. Lab Results 10/16/18 14:00: Urine Color Yellow, Urine Appearance Clear, Urine pH 6.5, Ur Specific [place] 1.010, Urine Protein Negative, Urine Glucose (UA) Negative, Urine Ketones Trace, Urine Blood Negative, Urine Nitrate Negative, Urine Bilirubin Negative, Urine Urobilinogen 0.2, Ur Leukocyte Esterase Negative, Urine RBC Occasional, Urine Bacteria Trace, Urine Mucus Trace 10/16/18 14:05: WBC 13.6 H, RBC 4.97, Hgb 14.2, Hct 42.9, MCV 86.4, MCH 28.6, MCHC 33.1, RDW 14.5, Plt Count 339, MPV 7.4, Neut % (Auto) 85.8 H, Lymph % (Auto) 7.5 L, [place] % (Auto) 5.4, Eos % (Auto) 0.9, Baso % (Auto) 0.4, Neut # (Auto) 11.7 H, Lymph # (Auto) 1.0, [place] # (Auto) 0.7, Eos # (Auto) 0.1, Baso # (Auto) 0.1, Total Counted 100, Neutrophils % (Manual) 88 H, Lymphocytes % (Ma nual) 9 L, Monocytes % (Manual) 3, Platelet Estimate Normal, RBC Morphology Normal 10/16/18 14:05: Sodium 133 L, Potassium 3.9, Chloride 95 L, Carbon Dioxide 26, Anion Gap 15.9 H, BUN 11, Creatinine 0.91, Estimated Creat Clear 104, Estimated GFR 85, Est GFR ( Amer) 103, Glucose 204 H, Calcium 9.3, Total Bilirubin 0.8, AST 26, ALT 54, Alkaline Phosphatase 144 H, Total Protein 8.8 H, Albumin 3.3 L, Globulin 5.5 H, Albumin/Globulin Ratio 0.6 L, Lipase 48 L Result diagrams: 10/16/18 14:05 10/16/18 14:05 Orders (Tests/Meds): ED MEDICATIONS Discontinued Medications Generic Name Dose Route Start Last Admin Trade Name Freq PRN Reason Stop Dose Admin Sodium Chloride 1,000 mls @ 999 mls/hr 10/16/18 14:30 10/16/18 14:21 Sod Chlor 0.9% 1000ml Bag IV 10/16/18 15:30 999 mls/hr .Q1H1M ILEANA Administration Sodium Chloride 500 mls @ 999 mls/hr 10/16/18 14:30 Sod Chlor 0.9% 1000ml Bag IV 10/16/18 15:00 .Q31M ILEANA Ioversol 75 ml 10/16/18 16:13 10/16/18 16:13 Rad-Optiray 350 100ml Vial IV 10/16/18 16:14 75 ml ONCE ONE Administration Protocol Ketorolac Tromethamine 30 mg 10/16/18 14:19 10/16/18 14:23 Toradol 30mg/Ml Vial IV 10/16/18 14:20 30 mg ONCE ONE Administration Ondansetron HCl 4 mg 10/16/18 14:19 10/16/18 14:21 Zofran 4mg/2ml Vial IV 10/16/18 14:20 4 mg ONCE ONE Administration Ondansetron HCl 4 mg 10/16/18 14:19 10/16/18 14:37 Zofran 4mg/2ml Vial IV 10/16/18 14:20 Not Given ONCE ONE Sodium Chloride 10 ml 10/16/18 16:13 10/16/18 16:13 Rad-Saline Flush 10ml Syringe IV 10/16/18 16:14 10 ml ONCE ONE Administration ORDERS Category Date Time Status CT abdomen pelvis w con Stat Cat Scan 10/16/18 14:18 Taken PT/INR [Prothrombin Time INR] Stat Lab 10/16/18 17:11 Ordered - Physician Consults Physician Consulted: ruby Time: 17:32 Reason -: Pt condition Comment/Response: will consult, admit joss/mehnaz Additional Consult: mehnaz Time: 17:33 Reason -: Admission Comment/Response: admit on invanz General Adult HPI - General Chief complaint: Back Pain/Injury Stated complaint: back pain, no accident Time Seen by Provider: 10/16/18 14:26 Mode of Arrival: Ambulatory Source of Information: Patient Limitations: No Limitations Description of Symptoms (Recalled from ER Triage Doc. by RN): right flank pain since Sunday,increased over course of last three days; nausea today; incr voiding - History of Present Illness HPI narrative: pain yesterday, increased markedly last night /this am. R upper quad and R posterior flank. Patient is on coumadin for PE prevention - Related Data Home Medications Medication Instructions Recorded Confirmed Acetaminophen [8 Hour] 650 mg PO BID 07/01/17 02/27/18 Calcium Carbonate [Calcium] 2,000 mg PO DAILY 07/01/17 02/27/18 Ephedrine Sulfate/Guaifenesin 1 tab PO BIDP PRN 07/01/17 02/27/18 [Bronkaid Dual Action Caplet] Etodolac [Etodolac 500mg Tab] 500 mg PO BID 07/01/17 02/27/18 Insulin Detemir [Levemir 100 60 units SQ HS 07/01/17 02/27/18 units/mL 10mL vial] Insulin Lispro [HumaLOG 100 20 units SQ ACHS 07/01/17 02/27/18 units/mL 3mL vial (SSI)] Levothyroxine Sodium 274 mcg PO DAILY 07/01/17 02/27/18 [Levothyroxine 137mcg (0.137mg) Tab] Lisinopril [Lisinopril 20mg Tab] 40 mg PO DAILY 07/01/17 02/27/18 diphenhydrAMINE HCl [Benadryl 25mg 1 - 2 cap PO HSP PRN 07/01/17 02/27/18 Capsule] hydroCHLOROthiazide [HCTZ 25mg 25 mg PO DAILY 07/01/17 02/27/18 tab] Warfarin Sodium [Coumadin 5mg 5 mg PO DIRECTED 12/17/17 02/27/18 tablet] Potassium 99 mg PO DAILY 02/27/18 02/27/18 Warfarin Sodium 7.5 mg PO DIRECTED 02/27/18 02/27/18 Montelukast Sodium [Singulair 10mg 10 mg PO DAILY 06/14/18 06/14/18 tablet] Previous Rx's Medication Instructions Recorded Amoxicillin/Potassium Clav 1 tab PO Q12H #20 tab 06/14/18 [Augmentin 875-125 Tablet] Azithromycin [AzaSite 1% Ophth 1 drop OP DIRECTED #1 bottle 06/14/18 Soln] Allergies Allergy/AdvReac Type Severity Reaction Status Date / Time adhesive [ADHESIVE] Allergy Severe BLEEDING Verified 06/07/18 08:45 SORES cefepime Allergy Severe BLEEDING Verified 06/07/18 08:45 SORES piperacillin [From ZOSYN] Allergy Severe RENAL Verified 06/07/18 08:45 FAILURE tazobactam [From ZOSYN] Allergy Severe RENAL Verified 06/07/18 08:45 FAILURE vancomycin [VANCOMYCIN] Allergy Severe RENAL Verified 06/07/18 08:45 FAILURE ciprofloxacin [From CIPRO] Allergy Intermediate JOINT PAIN Verified 06/07/18 08:45 doxazosin Allergy Intermediate LOW Verified 06/07/18 08:45 BP/DEHYDRATION hydralazine [HYDRALAZINE] Allergy Intermediate LOW Verified 06/07/18 08:45 BP/DEHYDRATION nifedipine Allergy Intermediate LOW Verified 06/07/18 08:45 BP/DEHYDRATION pioglitazone [From ACTOS] Allergy Intermediate CHEST Verified 06/07/18 08:45 CONGESTION rosiglitazone [From AVANDIA] Allergy Intermediate CHEST Verified 06/07/18 08:45 CONGESTION sulfamethoxazole Allergy Intermediate JOINT Verified 06/07/18 08:45 [From BACTRIM] SWELLING trimethoprim [From BACTRIM] Allergy Intermediate JOINT Verified 06/07/18 08:45 SWELLING exenatide [From BYDUREON] Allergy Unknown Verified 06/07/18 08:45 sucralfate [From CARAFATE] Allergy Unknown Verified 06/07/18 08:45 TEGADERM Allergy Severe BLEEDING Uncoded 06/19/17 14:38 SORES [facility] History - Hepatitis A Screen Drug use history?: No High risk sexual behaviors?: No History of sexually transmitted infection?: No Currently employed?: No Childcare worker?: No Do you have indoor plumbing?: Yes Do you have electricity?: Yes Attestation statement:: This patient has been screened for Hepatitis A risk factors. I have reviewed the patient's past medical history: Yes Medical History: Reports:: Cancer (thyroid), Diabetes Mellitus Type 2, Hy perlipidemia, Hypertension Denies:: Diabetes Mellitus Type 1, MRSA, Seizures Other Medical History: Reports: Thyroid Disease. Denies: Blood Transfusion Reaction Laterality Cases: Left: Other Other Surgeries: Yes: Other (left BKA) Amputation: Yes - Social History Educational Level: Completed High School Smoking Status: Never smoker Alcohol Intake: never Alcohol Intake Frequency:: 0-2 drinks per day Occupational Status: retired Housing: house Household Members: spouse - Psychiatric History Expresses thoughts of harming self/others: None Suicide Plan Description: No Plan Family Hx:: No significant family history, Adopted ROS Obtained: Yes All systems reviewed & no additional complaints - Constitutional Constitutional: Denies chills, Denies fever(s) - Eyes Eyes: Denies blurry vision - ENT Ears, Nose, Mouth, and Throat: Denies sore throat - Cardiovascular Cardiovascular: Denies chest pain, Denies chest pain at rest - Respiratory Respiratory: No chest congestion, No cough - Gastrointestinal Gastrointestingal: Reports: system reviewed and no additional complaints, except as docu, abdominal pain, nausea. Denies: diarrhea, bright red blood in stools, black, tarry stools - Genitourinary Male Genitourinary: Denies flank pain - Musculoskeletal Musculoskeletal: Reports back pain - Integumentary/Breasts Skin/Breast: Denies skin pain - Neurologic Neurologic: Denies headache(s), Denies syncope, Denies weakness - Hematologic/Lymphatic Henatologic/Lymphatic: Denies easy bleeding, Denies easy bruising Physical Exam - General General appearance: alert, in no apparent distress - Head Head exam: atraumatic, normocephalic, normal inspection - Eye Eye exam: Present: normal appearance, PERRL, EOMI - ENT ENT exam: Present: normal exam, normal oropharynx, mucous membranes moist, TM's normal bilaterally, normal external ear exam - Chest Chest inspection: Present: normal inspection, symmetric chest wall rise. Absent: tenderness - Respiratory Respiratory exam: Present: normal lung sounds bilaterally. Absent: respiratory distress - Cardiovascular Cardiovascular exam: Present: regular rate, normal rhythm. Absent: JVD - Abdominal Exam Abdominal exam: Present: soft, tenderness, guarding, normal bowel sounds, Ceja's sign. Absent: distention, rigidity, hyperactive bowel sounds, hypoactive bowel sounds Abdominal tenderness: Present: RUQ, moderate - Neurological Exam Neurological exam: Present: alert, oriented X3 - Psychiatric Psychiatric exam: Present: normal affect, normal mood - Skin Skin exam: Present: warm, dry, intact, normal color - Lymphatic Lymphatic Findings: no adenopathy
[2018-10-16 14:31] LABS: Microscopic, Urine URINE MICROSCOPIC (MICROSCOPIC)
[2018-10-16 14:34] LABS: Basophils # 0.1 K/mm3 (0-0.2); Basophils % 0.4 % (0.1-2.0); Eosinophils # 0.1 K/mm3 (0.0-0.4); Eosinophils % 0.9 % (0.1-12.0); Hematocrit 42.9 % (42.0-52.0); Hemoglobin 14.2 g/dL (14.1-18.0); Lymphocytes % 7.5 % (10-50); Mean Corpuscular HGB Conc 33.1 g/dL (31.8-35.4); Mean Corpuscular Hemoglobin 28.6 pg (27.0-31.2); Mean Corpuscular Volume 86.4 fl (80-94); Mean Platelet Volume 7.4 fl (7.4-10.4); Monocytes # 0.7 K/mm3 (0.1-1.0); Monocytes % 5.4 % (1.7-9.3); Neutrophils # 11.7 K/mm3 (1.8-7.8); Neutrophils % 85.8 % (37.0-80.0); Platelet Count 339 K/mm3 (142-424); Red Blood Count 4.97 M/mm3 (4.60-6.20); Red Cell Distribution Width 14.5 % (11.5-17.5); White Blood Count 13.6 K/mm3 (4.8-10.8)
[2018-10-16 14:36] LABS: Appearance,Urine CLEAR (Clear); Blood, Urine Negative (Negative); Color,Urine YELLOW (Yellow); Glucose,Urine (UA) Negative (Negative); Ketones,Urine TRACE (Negative); Leukocyte Esterase,Urine Negative (Negative); PH,Urine 6.5 (5.0-8.5); Protein,Urine Negative (Negative); Urobilinogen,Urine 0.2 EU/dl (0.2)
[2018-10-16 14:48] LABS: Lymphocytes % 9 % (10-50); Monocytes % 3 % (2-9); Neutrophils % 88 % (42-76); Total Cells Counted 100
[2018-10-16 14:49] LABS: RBC Morphology Normal
[2018-10-16 14:54] LABS: Albumin Level 3.3 gm/dL (3.4-5.0); Albumin/Globulin Ratio 0.6 (1.1-1.8); Anion Gap 15.9 mEq/L (5-15); Bilirubin,Total 0.8 mg/dL (0.2-1.0); Calcium 9.3 mg/dL (8.5-10.1); Globulin 5.5 gm/dl (1.3-3.2); Potassium 3.9 mmoL/L (3.5-5.1); Total Protein,Serum 8.8 gm/dL (6.4-8.2)
[2018-10-16 15:31] LABS: Bacteria,Urine Trace /lpf; Mucus,Urine Trace /lpf
[2018-10-16 15:32] LABS: RBC,Urine Occasional #/hpf (0-3)
[2018-10-16 15:57] LABS: Bilirubin,Urine Negative (Negative)
[2018-10-16 18:26] LABS: INR 2.3 (0.9-1.1); Prothrombin Time 23.1 seconds (9.4-11.8)
--- NOTE | 2018-10-17 06:32 | Consult Report ---
*Admission Date: 10/16/18 *Chief complaint: RUQ pain *History of present illness: This is a 57-year-old gentleman seen in consultation after presenting to the emergency department with right upper quadrant abdominal pain. Please see HPI from emergency department evaluation forwarded below. Description of Symptoms (Recalled from ER Triage Doc. by RN): right flank pain since Sunday,increased over course of last three days; nausea today; incr voiding - History of Present Illness HPI narrative: pain yesterday, increased markedly last night /this am. R upper quad and R posterior flank. Patient is on coumadin for PE prevention Review of Systems - Constitutional Reports anorexia - Eyes Denies change in vision - ENT Denies change in voice - *Cardiovascular Denies chest pain - *Respiratory Denies cough - *Gastrointestinal Reports abdominal pain, Reports nausea - *Neurologic Denies headache(s), Denies fainting, Denies weakness [facility] History Medical History: Reports:: Cancer, Diabetes Mellitus Type 2, Hyperlipidemia, Hypertension Denies:: Diabetes Mellitus Type 1, MRSA, Seizures *Have you ever received a pneumonia vaccine?: Yes *Have you received a flu vaccine this season?: Yes Other Medical History: Reports: Thyroid Disease. Denies: Blood Transfusion Reaction Laterality Cases: Left: Other Other Surgeries: Yes: Other (left BKA) Amputation: Yes - *Social History Educational Level: Completed High School Smoking Status: Former smoker Alcohol Intake: never Alcohol Intake Frequency:: 0-2 drinks per day *Occupational Status:: retired Housing: house Household Members: spouse *Travel in the last 8 weeks: None - Psychiatric History Expresses thoughts of harming self/others: None Suicide Plan Description: No Plan Family Hx:: No significant family history, Adopted Meds Home Medications Medication Instructions Recorded Confirmed Type Acetaminophen [8 Hour] 650 mg PO BID 07/01/17 10/16/18 History Calcium Carbonate [Calcium] 2,000 mg PO DAILY 07/01/17 10/16/18 History Ephedrine Sulfate/Guaifenesin 1 tab PO BIDP PRN 07/01/17 10/16/18 History [Bronkaid Dual Action Caplet] Etodolac [Etodolac 500mg Tab] 500 mg PO BID 07/01/17 10/16/18 History Insulin Detemir [Levemir 100 60 units SQ HS 07/01/17 10/16/18 History units/mL 10mL vial] Insulin Lispro [HumaLOG 100 20 units SQ ACHS 07/01/17 10/16/18 History units/mL 3mL vial (SSI)] Levothyroxine Sodium 274 mcg PO DAILY 07/01/17 10/16/18 History [Levothyroxine 137mcg (0.137mg) Tab] Lisinopril [Lisinopril 20mg Tab] 40 mg PO DAILY 07/01/17 10/16/18 History diphenhydrAMINE HCl [Benadryl 25mg 1 - 2 cap PO HSP PRN 07/01/17 10/16/18 History Capsule] hydroCHLOROthiazide [HCTZ 25mg 25 mg PO DAILY 07/01/17 10/16/18 History tab] Potassium 99 mg PO DAILY 02/27/18 10/16/18 History Warfarin Sodium 7.5 mg PO DAILY 02/27/18 10/16/18 History Albuterol Sulfate [Proair Hfa 2 puffs IH Q4HP PRN 10/16/18 10/16/18 History 90mcg/puff Inh] Azithromycin [AzaSite 1% Ophth 1 drop OP BID 10/16/18 10/16/18 History Soln] Fluticasone Propionate [Flonase 1 spr NS BID 10/16/18 10/16/18 History 50mcg nasal spray 16gm] Nebivolol HCl [Bystolic] 2.5 mg PO DAILY 10/16/18 10/16/18 History diazePAM [Valium] 2 mg PO BID 10/16/18 10/16/18 History Allergies Allergy/AdvReac Type Severity Reaction Status Date / Time adhesive [ADHESIVE] Allergy Severe BLEEDING Verified 06/07/18 08:45 SORES cefepime Allergy Severe BLEEDING Verified 06/07/18 08:45 SORES piperacillin [From ZOSYN] Allergy Severe RENAL Verified 06/07/18 08:45 FAILURE tazobactam [From ZOSYN] Allergy Severe RENAL Verified 06/07/18 08:45 FAILURE vancomycin [VANCOMYCIN] Allergy Severe RENAL Verified 06/07/18 08:45 FAILURE ciprofloxacin [From CIPRO] Allergy Intermediate JOINT PAIN Verified 06/07/18 08:45 doxazosin Allergy Intermediate LOW Verified 06/07/18 08:45 BP/DEHYDRATION hydralazine [HYDRALAZINE] Allergy Intermediate LOW Verified 06/07/18 08:45 BP/DEHYDRATION nifedipine Allergy Intermediate LOW Verified 06/07/18 08:45 BP/DEHYDRATION pioglitazone [From ACTOS] Allergy Intermediate CHEST Verified 06/07/18 08:45 CONGESTION rosiglitazone [From AVANDIA] Allergy Intermediate CHEST Verified 06/07/18 08:45 CONGESTION sulfamethoxazole Allergy Intermediate JOINT Verified 06/07/18 08:45 [From BACTRIM] SWELLING trimethoprim [From BACTRIM] Allergy Intermediate JOINT Verified 06/07/18 08:45 SWELLING exenatide [From BYDUREON] Allergy Unknown Verified 06/07/18 08:45 sucralfate [From CARAFATE] Allergy Unknown Verified 06/07/18 08:45 TEGADERM Allergy Severe BLEEDING Uncoded 06/19/17 14:38 SORES Exam Vital signs and Labs for Last 24 Hours: Temp Pulse Resp BP Pulse Ox 99.3 F 103 H 20 129/68 97 10/16/18 20:00 10/16/18 20:00 10/16/18 20:00 10/16/18 20:00 10/16/18 20:00 Laboratory Results - last 24 hr 10/16/18 14:00: Urine Color Yellow, Urine Appearance Clear, Urine pH 6.5, Ur Specific [place] 1.010, Urine Protein Negative, Urine Glucose (UA) Negative, Urine Ketones Trace, Urine Blood Negative, Urine Nitrate Negative, Urine Bilirubin Negative, Urine Urobilinogen 0.2, Ur Leukocyte Esterase Negative, Urine RBC Occasional, Urine Bacteria Trace, Urine Mucus Trace 10/16/18 14:05: WBC 13.6 H, RBC 4.97, Hgb 14.2, Hct 42.9, MCV 86.4, MCH 28.6, MCHC 33.1, RDW 14.5, Plt Count 339, MPV 7.4, Neut % (Auto) 85.8 H, Lymph % (Auto) 7.5 L, [place] % (Auto) 5.4, Eos % (Auto) 0.9, Baso % (Auto) 0.4, Neut # (Auto) 11.7 H, Lymph # (Auto) 1.0, [place] # (Auto) 0.7, Eos # (Auto) 0.1, Baso # (Auto) 0.1, Total Counted 100, Neutrophils % (Manual) 88 H, Lymphocytes % (Manual) 9 L, Monocytes % (Manual) 3, Platelet Estimate Normal, RBC Morphology Normal 10/16/18 14:05: Sodium 133 L, Potassium 3.9, Chloride 95 L, Carbon Dioxide 26, Anion Gap 15.9 H, BUN 11, Creatinine 0.91, Estimated Creat Clear 104, Estimated GFR 85, Est GFR ( Amer) 103, Glucose 204 H, Calcium 9.3, Total Bilirubin 0.8, AST 26, ALT 54, Alkaline Phosphatase 144 H, Total Protein 8.8 H, Albumin 3.3 L, Globulin 5.5 H, Albumin/Globulin Ratio 0.6 L, Lipase 48 L 10/16/18 14:05: PT 23.1 H, INR 2.30 H 10/16/18 17:37: POC Glucose 199 H I & O for Last 24 hours: Intake & Output 10/14/18 10/15/18 10/16/18 10/17/18 11:59 11:59 11:59 11:59 Intake Total 1150 / 1150 Balance 1150 / 1150 Weight 385 lb - Constitutional no acute distress - *Routine Respiratory Exam Absent: respiratory distress - *Routine Cardiovascular Exam Present: tachycardia - *Routine Abdominal Exam Present: soft, tenderness Comments: RUQ Results - Labs 10/16/18 14:05 10/16/18 14:05 Laboratory Results - last 24 hr 10/16/18 14:00: Urine Color Yellow, Urine Appearance Clear, Urine pH 6.5, Ur Specific [place] 1.010, Urine Protein Negative, Urine Glucose (UA) Negative, Urine Ketones Trace, Urine Blood Negative, Urine Nitrate Negative, Urine Bili [place] Negative, Urine Urobilinogen 0.2, Ur Leukocyte Esterase Negative, Urine RBC Occasional, Urine Bacteria Trace, Urine Mucus Trace 10/16/18 14:05: WBC 13.6 H, RBC 4.97, Hgb 14.2, Hct 42.9, MCV 86.4, MCH 28.6, MCHC 33.1, RDW 14.5, Plt Count 339, MPV 7.4, Neut % (Auto) 85.8 H, Lymph % (Auto) 7.5 L, [place] % (Auto) 5.4, Eos % (Auto) 0.9, Baso % (Auto) 0.4, Neut # (Auto) 11.7 H, Lymph # (Auto) 1.0, [place] # (Auto) 0.7, Eos # (Auto) 0.1, Baso # (Auto) 0.1, Total Counted 100, Neutrophils % (Manual) 88 H, Lymphocytes % (Manual) 9 L, Monocytes % (Manual) 3, Platelet Estimate Normal, RBC Morphology Normal 10/16/18 14:05: Sodium 133 L, Potassium 3.9, Chloride 95 L, Carbon Dioxide 26, Anion Gap 15.9 H, BUN 11, Creatinine 0.91, Estimated Creat Clear 104, Estimated GFR 85, Est GFR ( Amer) 103, Glucose 204 H, Calcium 9.3, Total Bilirubin 0.8, AST 26, ALT 54, Alkaline Phosphatase 144 H, Total Protein 8.8 H, Albumin 3.3 L, Globulin 5.5 H, Albumin/Globulin Ratio 0.6 L, Lipase 48 L 10/16/18 14:05: PT 23.1 H, INR 2.30 H 10/16/18 17:37: POC Glucose 199 H - Imaging CT scan - abdomen: report reviewed, image reviewed CT scan - pelvis: report reviewed, image reviewed Assessment and Plan (1) Cholecystitis Current visit: Yes Status: Acute Category: Medical Code(s): K81.9 - C holecystitis, unspecified Continue IV antibiotics and pain management Cholecystectomy when INR normalized
[2018-10-17 06:56] LABS: Basophils % 0.2 % (0.1-2.0); Eosinophils # 0.1 K/mm3 (0.0-0.4); Eosinophils % 0.4 % (0.1-12.0); Hematocrit 36.3 % (42.0-52.0); Lymphocytes # 0.9 K/mm3 (0.7-4.5); Lymphocytes % 5.9 % (10-50); Mean Corpuscular HGB Conc 32.6 g/dL (31.8-35.4); Mean Corpuscular Volume 85.8 fl (80-94); Mean Platelet Volume 7.4 fl (7.4-10.4); Monocytes # 1.1 K/mm3 (0.1-1.0); Monocytes % 7.5 % (1.7-9.3); Neutrophils # 12.6 K/mm3 (1.8-7.8); Neutrophils % 85.9 % (37.0-80.0); Platelet Count 259 K/mm3 (142-424); Red Blood Count 4.23 M/mm3 (4.60-6.20); Red Cell Distribution Width 14.4 % (11.5-17.5); White Blood Count 14.6 K/mm3 (4.8-10.8)
[2018-10-17 07:04] LABS: INR 2.73 (0.9-1.1); Prothrombin Time 27.3 seconds (9.4-11.8)
[2018-10-17 07:06] LABS: Albumin Level 2.5 gm/dL (3.4-5.0); Albumin/Globulin Ratio 0.5 (1.1-1.8); Calcium 8.7 mg/dL (8.5-10.1); Globulin 4.6 gm/dl (1.3-3.2); Total Protein,Serum 7.1 gm/dL (6.4-8.2)
--- NOTE | 2018-10-17 08:04 | Pharmacy Consult Notes ---
[facility] Pharmacy VTE Monitoring - Patient Demographics Admission date: 10/16/18 Report Date: 10/17/18 Time: 08:04 Allergies/Adverse Reactions: Patient Allergies adhesive [ADHESIVE] Allergy (Severe, Verified 06/07/18 08:45) BLEEDING SORES cefepime Allergy (Severe, Verified 06/07/18 08:45) BLEEDING SORES piperacillin [From ZOSYN] Allergy (Severe, Verified 06/07/18 08:45) RENAL FAILURE tazobactam [From ZOSYN] Allergy (Severe, Verified 06/07/18 08:45) RENAL FAILURE vancomycin [VANCOMYCIN] Allergy (Severe, Verified 06/07/18 08:45) RENAL FAILURE ciprofloxacin [From CIPRO] Allergy (Intermediate, Verified 06/07/18 08:45) JOINT PAIN doxazosin Allergy (Intermediate, Verified 06/07/18 08:45) LOW BP/DEHYDRATION hydralazine [HYDRALAZINE] Allergy (Intermediate, Verified 06/07/18 08:45) LOW BP/DEHYDRATION nifedipine Allergy (Intermediate, Verified 06/07/18 08:45) LOW BP/DEHYDRATION pioglitazone [From ACTOS] Allergy (Intermediate, Verified 06/07/18 08:45) CHEST CONGESTION rosiglitazone [From AVANDIA] Allergy (Intermediate, Verified 06/07/18 08:45) CHEST CONGESTION sulfamethoxazole [From BACTRIM] Allergy (Intermediate, Verified 06/07/18 08:45) JOINT SWELLING trimethoprim [From BACTRIM] Allergy (Intermediate, Verified 06/07/18 08:45) JOINT SWELLING exenatide [From BYDUREON] Allergy (Unknown, Verified 06/07/18 08:45) sucralfate [From CARAFATE] Allergy (Unknown, Verified 06/07/18 08:45) TEGADERM Allergy (Severe, Uncoded 06/19/17 14:38) BLEEDING SORES Height: 1.91 m Weight: 175.087 kg Patient Problems: Current Active Problems (Updated 10/17/18 @ 06:32 by Clem Tovar MD) DVT (deep venous thrombosis) (Acute) Cholecystitis (Acute) - VTE Risk Labs: VTE Related Lab Results Hgb 12.0 g/dL (14.1-18.0) L D 10/17/18 06:30 Hct 36.3 % (42.0-52.0) L 10/17/18 06:30 Plt Count 259 K/mm3 (142-424) 10/17/18 06:30 PT 27.3 seconds (9.4-11.8) H 10/17/18 06:30 INR 2.73 (0.9-1.1) H 10/17/18 06:30 BUN 14 mg/dL (7-18) D 10/17/18 06:30 Creatinine 0.88 mg/dL (0.70-1.30) 10/17/18 06:30 Estimated Creat Clear 108 mL/min (50-200) 10/17/18 06:30 Was VTE Risk Assessment Performed: Yes VTE Score: 10 VTE Risk Level: Moderate Risk - Prophylaxis VTE Prophylaxis Ordered?: Yes Types of VTE Prophylaxis: TEDS Knee High Location of Applied Device: Bilateral Lower Extremeties - VTE Diagnosis Confirmed Treatment or plan recommended: Continue Current Treatment
--- NOTE | 2018-10-17 08:50 | History & Physical Report ---
*Admission Date: 10/16/18 <Destiny Farah 10/17/18 08:50> *Chief complaint: RUQ pain <Destiny Farah 10/17/18 08:50> *History of present illness: Mr. Worthy is a 57-year-old diabetic male with a history of PE, hypertension, asthma, metastatic thyroid cancer, and osteomyelitis status post amputation of the left lower leg. He is is currently on Coumadin. He began having right upper quadrant pain on Sunday night. The pain radiated into his back. He states the pain progressively worsened and he developed a low-grade fever. He became nauseated and was unable to eat, therefore he presented to the emergency room for further evaluation and treatment. He had a CT of the abdomen and pelvis which revealed cholecystitis. He was admitted and Dr. Tovar was consulted. <Destiny Farah 10/17/18 09:14> [facility] History I have reviewed the patient's past medical history: Yes <Destiny Farah 10/17/18 09:14> Medical History: Reports:: Cancer (metastatic thyroid), Deep Vein Thrombosis, Diabetes Mellitus Type 2, Hyperlipidemia, Hypertension, Pulmonary Embolism Denies:: Diabetes Mellitus Type 1, MRSA, Seizures <Destiny Farah 10/17/18 09:14> *Have you ever received a pneumonia vaccine?: Yes <Destiny Farah 10/17/18 08:50> *Have you received a flu vaccine this season?: Yes <Destiny Farah 10/17/18 08:50> Other Medical History: Reports: Thyroid Disease, Other. Denies: Blood Transfusion Reaction <Destiny Farah 10/17/18 09:14> Comment:: Left foot osteomyelitis with left lower leg amputation, Left pathologic humeral fracture <Destiny Farah 10/17/18 09:14> Laterality Cases: Left: Other, Bilateral: Tonsillectomy <Destiny Farah 10/17/18 09:14> Other Surgeries: Yes: Thyroidectomy (with radioactive iodine), Other (left BKA, Tumor removed from spine, ORIF pathologic humeral fx) <Destiny Farah 10/17/18 09:14> Amputation: Yes <Destiny Farah 10/17/18 08:50> - *Social History Educational Level: Completed High School <ConradomatthewDestiny 10/17/18 08:50> Smoking Status: Former smoker <ConradomatthewDestiny 10/17/18 08:50> Alcohol Intake: never <ConradomatthewDestiny 10/17/18 08:50> Alcohol Intake Frequency:: 0-2 drinks per day <ConradomatthewDestiny 10/17/18 08:50> *Occupational Status:: retired <GaganDestiny 10/17/18 08:50> Housing: house <ConradomatthewDestiny 10/17/18 08:50> Household Members: spouse <ConradomatthewDestiny 10/17/18 08:50> *Travel in the last 8 weeks: None <GaganDestiny 10/17/18 08:50> - Psychiatric History Expresses thoughts of harming self/others: None <GaganDestiny 10/17/18 08:50> Suicide Plan Description: No Plan <Kadeem Faraha 10/17/18 08:50> Family Hx:: No significant family history, Adopted <ConradomatthewDestiny 10/17/18 08:50> Review of Systems - Constitutional Reports fatigue, Reports fever(s), Reports weakness <GaganDestiny 10/17/18 09:14> - Eyes Denies blurry vision, Denies double vision <GaganDestiny 10/17/18 09:14> - ENT Denies nasal congestion, Denies sore throat <GaganDestiny 10/17/18 09:14> - *Cardiovascular Reports shortness of breath, Denies chest pain <Kadeem Faraha 10/17/18 09:14> - *Respiratory Reports shortness of breath, Denies chest congestion, Denies cough <GaganDestiny 10/17/18 09:14> - *Gastrointestinal Reports abdominal pain (RUQ), Reports constipation, Reports nausea, Denies loose stools, Denies vomiting <Kadeem Faraha 10/17/18 09:14> - *Genitourinary Denies difficulty urinating, Denies painful urination <Destiny Farah 10/17/18 09:14> - *Musculoskeletal Reports back pain, Denies joint pain <Destiny Farah 10/17/18 09:14> - *Neurologic Reports weakness, Denies confusion, Denies headache(s), Denies fainting, Denies dizziness <Destiny Farah - 10/17/18 09:14> Meds Home Medications Medication Instructions Recorded Confirmed Type Acetaminophen [8 Hour] 650 mg PO BID 07/01/17 10/16/18 History Calcium Carbonate [Calcium] 4,000 mg PO DAILY 07/01/17 10/17/18 History Etodolac [Etodolac 500mg Tab] 500 mg PO BID 07/01/17 10/16/18 History Insulin Detemir [Levemir 100 42 units SQ HS 07/01/17 10/17/18 History units/mL 10mL vial] Insulin Lispro [HumaLOG 100 0 units SQ ACHS 07/01/17 10/17/18 History units/mL 3mL vial (SSI)] Levothyroxine Sodium 274 mcg PO DAILY 07/01/17 10/16/18 History [Levothyroxine 137mcg (0.137mg) Tab] diphenhydrAMINE HCl [Benadryl 25mg 1 - 2 cap PO HSP PRN 07/01/17 10/16/18 History Capsule] hydroCHLOROthiazide [HCTZ 25mg 25 mg PO DAILY 07/01/17 10/16/18 History tab] Potassium 99 mg PO Q48H 02/27/18 10/17/18 History Warfarin Sodium 7.5 mg PO DAILY 02/27/18 10/16/18 History Albuterol Sulfate [Proair Hfa 2 puffs IH Q4HP PRN 10/16/18 10/16/18 History 90mcg/puff Inh] Azithromycin [AzaSite 1% Ophth 1 drop OP BID 10/16/18 10/16/18 History Soln] Fluticasone Propionate [Flonase 1 spr NS DAILY 10/16/18 10/17/18 History 50mcg nasal spray 16gm] Nebivolol HCl [Bystolic] 2.5 mg PO DAILY 10/16/18 10/16/18 History diazePAM [Valium] 2 mg PO BID 10/16/18 10/16/18 History Lisinopril [Lisinopril 40mg Tablet] 40 mg PO DAILY 10/17/18 10/17/18 History <Prem Pandya - 10/17/18 18:14> Allergies Allergy/AdvReac Type Severity Reaction Status Date / Time adhesive [ADHESIVE] Allergy Severe BLEEDING Verified 06/07/18 08:45 SORES cefepime Allergy Severe BLEEDING Verified 06/07/18 08:45 SORES piperacillin [From ZOSYN] Allergy Severe RENAL Verified 06/07/18 08:45 FAILURE tazobactam [From ZOSYN] Allergy Severe RENAL Verified 06/07/18 08:45 FAILURE vancomycin [VANCOMYCIN] Allergy Severe RENAL Verified 06/07/18 08:45 FAILURE ciprofloxacin [From CIPRO] Allergy Intermediate JOINT PAIN Verified 06/07/18 08:45 doxazosin Allergy Intermediate LOW Verified 06/07/18 08:45 BP/DEHYDRATION hydralazine [HYDRALAZINE] Allergy Intermediate LOW Verified 06/07/18 08:45 BP/DEHYDRATION nifedipine Allergy Intermediate LOW Verified 06/07/18 08:45 BP/DEHYDRATION pioglitazone [From ACTOS] Allergy Intermediate CHEST Verified 06/07/18 08:45 CONGESTION rosiglitazone [From AVANDIA] Allergy Intermediate CHEST Verified 06/07/18 08:45 CONGESTION sulfamethoxazole Allergy Intermediate JOINT Verified 06/07/18 08:45 [From BACTRIM] SWELLING trimethoprim [From BACTRIM] Allergy Intermediate JOINT Verified 06/07/18 08:45 SWELLING exenatide [From BYDUREON] Allergy Unknown Verified 06/07/18 08:45 sucralfate [From CARAFATE] Allergy Unknown Verified 06/07/18 08:45 TEGADERM Allergy Severe BLEEDING Uncoded 06/19/17 14:38 SORES <Prem Pandya - 10/17/18 18:14> Exam Vital signs and Labs for Last 24 Hours: Temp Pulse Resp BP Pulse Ox 98.5 F 100 H 18 137/80 96 10/17/18 16:00 10/17/18 16:00 10/17/18 16:00 10/17/18 16:00 10/17/18 16:00 Laboratory Results - last 24 hr 10/16/18 14:05: PT 23.1 H, INR 2.30 H 10/16/18 21:06: POC Glucose 198 H 10/17/18 04:47: POC Glucose 206 H 10/17/18 06:30: WBC 14.6 H, RBC 4.23 L, Hgb 12.0 L D, Hct 36.3 L, MCV 85.8, MCH 28.0, MCHC 32.6, RDW 14.4, Plt Count 259, MPV 7.4, Neut % (Auto) 85.9 H, Lymph % (Auto) 5.9 L, [place] % (Auto) 7.5, Eos % (Auto) 0.4, Baso % (Auto) 0.2, Neut # (A uto) 12.6 H, Lymph # (Auto) 0.9, [place] # (Auto) 1.1 H, Eos # (Auto) 0.1, Baso # (Auto) 0.0, Total Counted 100, Neutrophils % (Manual) 88 H, Lymphocytes % (Manual) 5 L, Monocytes % (Manual) 7, Platelet Estimate Normal, RBC Morphology Normal 10/17/18 06:30: Sodium 132 L, Potassium 4.0, Chloride 98, Carbon Dioxide 25, Anion Gap 13.0, BUN 14 D, Creatinine 0.88, Estimated Creat Clear 108, Estimated GFR 89, Est GFR ( Amer) 107, Glucose 237 H, Calcium 8.7, Total Bilirubin 1.0, AST 25, ALT 48, Alkaline Phosphatase 132 H, Total Protein 7.1, Albumin 2.5 L D, Globulin 4.6 H, Albumin/Globulin Ratio 0.5 L 10/17/18 06:30: PT 27.3 H, INR 2.73 H 10/17/18 11:40: POC Glucose 212 H 10/17/18 16:53: POC Glucose 180 H <YaPrem Santino - 10/17/18 18:14> Temp Pulse Resp BP Pulse Ox 98.2 F 95 H 18 138/71 96 10/17/18 08:00 10/17/18 08:00 10/17/18 08:00 10/17/18 08:00 10/17/18 08:00 Laboratory Results - last 24 hr 10/16/18 14:00: Urine Color Yellow, Urine Appearance Clear, Urine pH 6.5, Ur Specific [place] 1.010, Urine Protein Negative, Urine Glucose (UA) Negative, Urine Ketones Trace, Urine Blood Negative, Urine Nitrate Negative, Urine Bilirubin Negative, Urine Urobilinogen 0.2, Ur Leukocyte Esterase Negative, Urine RBC Occasional, Urine Bacteria Trace, Urine Mucus Trace 10/16/18 14:05: WBC 13.6 H, RBC 4.97, Hgb 14.2, Hct 42.9, MCV 86.4, MCH 28.6, MCHC 33.1, RDW 14.5, Plt Count 339, MPV 7.4, Neut % (Auto) 85.8 H, Lymph % (Auto) 7.5 L, [place] % (Auto) 5.4, Eos % (Auto) 0.9, Baso % (Auto) 0.4, Neut # (Auto) 11.7 H, Lymph # (Auto) 1.0, [place] # (Auto) 0.7, Eos # (Auto) 0.1, Baso # (Auto) 0.1, Total Counted 100, Neutrophils % (Manual) 88 H, Lymphocytes % (Manual) 9 L, Monocytes % (Manual) 3, Platelet Estimate Normal, RBC Morphology Normal 10/16/18 14:05: Sodium 133 L, Potassium 3.9, Chloride 95 L, Carbon Dioxide 26, Anion Gap 15.9 H, BUN 11, Creatinine 0.91, Estimated Creat Clear 104, Estimated GFR 85, Est GFR ( Amer) 103, Glucose 204 H, Calcium 9.3, Total Bilirubin 0.8, AST 26, ALT 54, Alkaline Phosphatase 144 H, Total Protein 8.8 H, Albumin 3.3 L, Globulin 5.5 H, Albumin/Globulin Ratio 0.6 L, Lipase 48 L 10/16/18 14:05: PT 23.1 H, INR 2.30 H 10/16/18 17:37: POC Glucose 199 H 10/17/18 06:30: WBC 14.6 H, RBC 4.23 L, Hgb 12.0 L D, Hct 36.3 L, MCV 85.8, MCH 28.0, MCHC 32.6, RDW 14.4, Plt Count 259, MPV 7.4, Neut % (Auto) 85.9 H, Lymph % (Auto) 5.9 L, [place] % (Auto) 7.5, Eos % (Auto) 0.4, Baso % (Auto) 0.2, Neut # (Auto) 12.6 H, Lymph # (Auto) 0.9, [place] # (Auto) 1.1 H, Eos # (Auto) 0.1, Baso # (Auto) 0.0 04/18/19 06:30: Sodium 132 L, Potassium 4.0, Chloride 98, Carbon Dioxide 25, Anion Gap 13.0, BUN 14 D, Creatinine 0.88, Estimated Creat Clear 108, Estimated GFR 89, Est GFR ( Amer) 107, Glucose 237 H, Calcium 8.7, Total Bilirubin 1.0, AST 25, ALT 48, Alkaline Phosphatase 132 H, Total Protein 7.1, Albumin 2.5 L D, Globulin 4.6 H, Albumin/Globulin Ratio 0.5 L 10/17/18 06:30: PT 27.3 H, INR 2.73 H <GaganKadeema 10/17/18 09:14> I & O for Last 24 hours: Intake & Output 10/15/18 10/16/18 10/17/18 10/18/18 11:59 11:59 11:59 11:59 Intake Total 2561 / 2561 Output Total 1200 / 1200 760 / 760 Balance 1361 / 1361 -760 / -760 Weight 386 lb <Prem Pandya - 10/17/18 18:14> Intake & Output 10/14/18 10/15/18 10/16/18 10/17/18 11:59 11:59 11:59 11:59 Intake Total 2561 / 2561 Output Total 800 / 800 Balance 1761 / 1761 Weight 386 lb <GaganDestiny 10/17/18 08:50> - Constitutional no acute distress <GaganDestiny 10/17/18 09:14> - *Routine HEENT Exam Head: Present: normocephalic <Destiny Farah 10/17/18 09:14> Eye: Present: EOMI, PERRL <GaganDestiny 10/17/18 09:14> ENT: Present: mucous membranes dry <Destiny Farah 10/17/18 09:14> - *Routine Neck Exam Present: supple. Absent: lymphadenopathy <Destiny Farah 10/17/18 09:14> - *Routine Respiratory Exam Present: CTA bilaterally <GaganDestiny 10/17/18 09:14> - *Routine Cardiovascular Exam Present: RRR <Destiny Farah 10/17/18 09:14> - *Routine Abdominal Exam Present: soft, normoactive bowel sounds, tenderness (RUQ ttp) <Destiny Farah 10/17/18 09:14> - *Routine Extremities Exam Present: edema (RLE, left BKA) <Destiny Farah 10/17/18 09:14> - *Routine Skin Exam Present: warm. Absent: rash <Destiny Farah 10/17/18 09:14> - *Routine Neurological Exam Present: alert, oriented X3 <Destiny Farah 10/17/18 09:14> H&P: Result - Impressions Abd/Pelvis CT 1. Limited exam due to inability to include the entire abdomen due to patient's body size. 2. Stranding of the fat around the gallbladder with a small amount of pericholecystic fluid suggesting cholecystitis. 3. Destructive lesion of the right sixth rib or malignancy. There are old bilateral rib fractures. <Destiny Farah 10/17/18 13:13> Assessment and Plan (1) Cholecystitis Current visit: Yes Status: Acute Category: Medical Code(s): K81.9 - Cholecystitis, unspecified (2) History of DVT (deep vein thrombosis) Current visit: Yes Status: Chronic Category: Medical Code(s): Z86.718 - Personal history of other venous thrombosis and embolism (3) History of pulmonary embolus (PE) Current visit: Yes Status: Chronic Category: Medical Code(s): Z86.711 - Personal history of pulmonary embolism (4) Asthma Current visit: Yes Status: Chronic Category: Medical Code(s): J45.909 - Unspecified asthma, uncomplicated (5) History of left below knee amputation Current visit: Yes Status: Chronic Category: Medical Code(s): Z89.512 - Acquired absence of left leg below knee (6) HBP (high blood pressure) Current visit: No Status: Chronic Category: Medical Code(s): I10 - Essential (primary) hypertension (7) Metastasis Current visit: No Status: Chronic Category: Medical Code(s): C79.9 - Secondary malignant neoplasm of unspecified site (8) Thyroid cancer Current visit: No Status: Chronic Category: Medical Code(s): C73 - Malignant neoplasm of thyroid gland (9) Type 2 diabetes mellitus Current visit: No Status: Chronic Category: Medical Code(s): E11.9 - Type 2 diabetes mellitus without complications (10) Degenerative joint disease (DJD) of lumbar spine Current visit: No Status: Chronic Category: Medical Code(s): M47.816 - Spondylosis without myelopathy or radiculopathy, lumbar region <Destiny Farah - 10/17/18 13:11> (1) Cholecystitis Current visit: Yes Status: Acute Category: Medical Code(s): K81.9 - Cholecystitis, unspecified (2) History of DVT (deep vein thrombosis) Current visit: Yes Status: Chronic Category: Medical Code(s): Z86.718 - Personal history of other venous thrombosis and embolism (3) History of pulmonary embolus (PE) Current visit: Yes Status: Chronic Category: Medical Code(s): Z86.711 - Personal history of pulmonary embolism (4) Asthma Current visit: Yes Status: Chronic Category: Medical Code(s): J45.909 - Unspecified asthma, uncomplicated (5) History of left below knee amputation Current visit: Yes Status: Chronic Category: Medical Code(s): Z89.512 - Acquired absence of left leg below knee (6) HBP (high blood pressure) Current visit: No Status: Chronic Category: Medical Code(s): I10 - Essential (primary) hypertension (7) Metastasis Current visit: No Status: Chronic Category: Medical Code(s): C79.9 - Secondary malignant neoplasm of unspecified site (8) Thyroid cancer Current visit: No Status: Chronic Category: Medical Code(s): C73 - Malignant neoplasm of thyroid gland (9) Type 2 diabetes mellitus Current visit: No Status: Chronic Category: Medical Code(s): E11.9 - Type 2 diabetes mellitus without complications (10) Degenerative joint disease (DJD) of lumbar spine Current visit: No Status: Chronic Category: Medical Code(s): M47.816 - Spondylosis without myelopathy or radiculopathy, lumbar region <Prem Pandya - 10/17/18 18:14> - Assessment and plan all Dx Assessment and Plan for all problems:: Patient seen and examined. Concur with assessment and plan as outlined. <Prem Pandya - 10/17/18 18:14> Patient will be given vitamin K to lower INR. Will recheck tomorrow. Hopefully he will be able to have a cholecystectomy soon. Dr. Tovar's note appreciated. <Destiny Farha - 10/17/18 13:13>
[2018-10-17 09:30] LABS: Lymphocytes % 5 % (10-50); Monocytes % 7 % (2-9); Neutrophils % 88 % (42-76); RBC Morphology Normal; Total Cells Counted 100
--- NOTE | 2018-10-18 06:12 | Progress Note ---
Subjective Patient reports: no new complaints, still having pain Exam Vital signs and Labs for Last 24 Hours: Temp Pulse Resp BP Pulse Ox 99.2 F 101 H 20 161/72 H 93 L 10/18/18 03:53 10/18/18 03:53 10/18/18 03:53 10/18/18 03:53 10/18/18 03:53 Laboratory Results - last 24 hr 10/16/18 21:06: POC Glucose 198 H 10/17/18 04:47: POC Glucose 206 H 10/17/18 06:30: WBC 14.6 H, RBC 4.23 L, Hgb 12.0 L D, Hct 36.3 L, MCV 85.8, MCH 28.0, MCHC 32.6, RDW 14.4, Plt Count 259, MPV 7.4, Neut % (Auto) 85.9 H, Lymph % (Auto) 5.9 L, [place] % (Auto) 7.5, Eos % (Auto) 0.4, Baso % (Auto) 0.2, Neut # (Auto) 12.6 H, Lymph # (Auto) 0.9, [place] # (Auto) 1.1 H, Eos # (Auto) 0.1, Baso # (Auto) 0.0, Total Counted 100, Neutrophils % (Manual) 88 H, Lymphocytes % (Manual) 5 L, Monocytes % (Manual) 7, Platelet Estimate Normal, RBC Morphology Normal 10/17/18 06:30: Sodium 132 L, Potassium 4.0, Chloride 98, Carbon Dioxide 25, Anion Gap 13.0, BUN 14 D, Creatinine 0.88, Estimated Creat Clear 108, Estimated GFR 89, Est GFR ( Amer) 107, Glucose 237 H, Calcium 8.7, Total Bilirubin 1.0, AST 25, ALT 48, Alkaline Phosphatase 132 H, Total Protein 7.1, Albumin 2.5 L D, Globulin 4.6 H, Albumin/Globulin Ratio 0.5 L 10/17/18 06:30: PT 27.3 H, INR 2.73 H 10/17/18 11:40: POC Glucose 212 H 10/17/18 16:53: POC Glucose 180 H 10/17/18 21:19: POC Glucose 201 H 10/18/18 05:45: POC Glucose 195 H I & O for Last 24 hours: Intake & Output 10/15/18 10/16/18 10/17/18 10/18/18 11:59 11:59 11:59 11:59 Intake Total 2561 / 2561 1200 / 1200 Output Total 1200 / 1200 2059 Balance 1361 / 1361 -860 / -860 Weight 386 lb 394 lb 6 oz - Constitutional no acute distress - *Routine Respiratory Exam Absent: respiratory distress - *Routine Abdominal Exam Present: soft, tenderness Progress Note: A&P (1) Cholecystitis Status: Acute Assessment and plan: The patient appears to be stable on current antibiotic regimen. Continue IV antibiotics Follow-up morning labs Cholecystectomy when INR normalized Current Visit: Yes (2) History of DVT (deep vein thrombosis) Status: Chronic Current Visit: Yes (3) History of pulmonary embolus (PE) Status: Chronic Current Visit: Yes (4) Asthma Status: Chronic Current Visit: Yes (5) History of left below knee amputation Status: Chronic Current Visit: Yes (6) HBP (high blood pressure) Status: Chronic Current Visit: No (7) Metastasis Status: Chronic Current Visit: No (8) Thyroid cancer Status: Chronic Current Visit: No (9) Type 2 diabetes mellitus Status: Chronic Current Visit: No (10) Degenerative joint disease (DJD) of lumbar spine Status: Chronic Current Visit: No
[2018-10-18 06:13] LABS: Basophils % 0.1 % (0.1-2.0); Eosinophils # 0.1 K/mm3 (0.0-0.4); Eosinophils % 0.5 % (0.1-12.0); Hematocrit 34.3 % (42.0-52.0); Hemoglobin 11.3 g/dL (14.1-18.0); Lymphocytes # 0.9 K/mm3 (0.7-4.5); Lymphocytes % 6.5 % (10-50); Mean Corpuscular Hemoglobin 28.2 pg (27.0-31.2); Mean Corpuscular Volume 85.6 fl (80-94); Mean Platelet Volume 7.6 fl (7.4-10.4); Monocytes # 0.8 K/mm3 (0.1-1.0); Monocytes % 5.7 % (1.7-9.3); Neutrophils # 11.6 K/mm3 (1.8-7.8); Neutrophils % 87.2 % (37.0-80.0); Platelet Count 255 K/mm3 (142-424); Red Blood Count 4.01 M/mm3 (4.60-6.20); Red Cell Distribution Width 14.3 % (11.5-17.5); White Blood Count 13.3 K/mm3 (4.8-10.8)
[2018-10-18 06:22] LABS: Albumin Level 2.2 gm/dL (3.4-5.0); Albumin/Globulin Ratio 0.5 (1.1-1.8); Anion Gap 11.8 mEq/L (5-15); Bilirubin,Total 0.8 mg/dL (0.2-1.0); Calcium 8.6 mg/dL (8.5-10.1); Globulin 4.8 gm/dl (1.3-3.2); Potassium 3.8 mmoL/L (3.5-5.1)
[2018-10-18 06:23] LABS: INR 1.39 (0.9-1.1); Prothrombin Time 14.2 seconds (9.4-11.8)
--- NOTE | 2018-10-18 08:11 | Progress Note ---
<Destniy Farah - Last Filed: 10/18/18 08:10> Internal Medicine - PN: Subj *Date: 10/18/18 *Time: 08:10 Interval history: Patient states he feels about the same today. He is still having pain in his right upper quadrant. He did not rest very well last night. He is scheduled for surgery at some point today. Exam Vital signs and Labs for Last 24 Hours: Temp Pulse Resp BP Pulse Ox 99.2 F 101 H 20 161/72 H 93 L 10/18/18 03:53 10/18/18 03:53 10/18/18 03:53 10/18/18 03:53 10/18/18 03:53 Laboratory Results - last 24 hr 10/16/18 21:06: POC Glucose 198 H 10/17/18 04:47: POC Glucose 206 H 10/17/18 06:30: Total Counted 100, Neutrophils % (Manual) 88 H, Lymphocytes % (Manual) 5 L, Monocytes % (Manual) 7, Platelet Estimate Normal, RBC Morphology Normal 10/17/18 11:40: POC Glucose 212 H 10/17/18 16:53: POC Glucose 180 H 10/17/18 21:19: POC Glucose 201 H 10/18/18 05:44: WBC 13.3 H, RBC 4.01 L, Hgb 11.3 L, Hct 34.3 L, MCV 85.6, MCH 28.2, MCHC 33.0, RDW 14.3, Plt Count 255, MPV 7.6, Neut % (Auto) 87.2 H, Lymph % (Auto) 6.5 L, Story % (Auto) 5.7, Eos % (Auto) 0.5, Baso % (Auto) 0.1, Neut # (Auto) 11.6 H, Lymph # (Auto) 0.9, Story # (Auto) 0.8, Eos # (Auto) 0.1, Baso # (Auto) 0.0 10/18/18 05:44: PT 14.2 H, INR 1.39 H 10/18/18 05:44: Sodium 133 L, Potassium 3.8, Chloride 99, Carbon Dioxide 26, Anion Gap 11.8, BUN 9 D, Creatinine 0.72, Estimated Creat Clear 132, Estimated GFR 112, Est GFR ( Amer) 135 D, Glucose 202 H, Calcium 8.6, Total Bilirubin 0.8, AST 22, ALT 48, Alkaline Phosphatase 157 H, Total Protein 7.0, Albumin 2.2 L D, Globulin 4.8 H, Albumin/Globulin Ratio 0.5 L 10/18/18 05:45: POC Glucose 195 H I & O for Last 24 hours: Intake & Output 10/15/18 10/16/18 10/17/18 10/18/18 11:59 11:59 11:59 11:59 Intake Total 2561 / 2561 2878 / 2878 Output Total 1200 / 1200 2060 / 2060 Balance 1361 / 1361 818 / 818 Weight 386 lb 394 lb 6 oz - Constitutional no acute distress - *Routine Respiratory Exam Present: CTA bilaterally - *Routine Cardiovascular Exam Present: RRR - *Routine Abdominal Exam Present: soft, normoactive bowel sounds, tenderness (RUQ) - *Routine Extremities Exam Present: edema (RLE). Absent: cyanosis, clubbing Assessment and Plan (1) Cholecystitis Current visit: Yes Status: Acute Category: Medical Code(s): K81.9 - Cholecystitis, unspecified (2) History of DVT (deep vein thrombosis) Current visit: Yes Status: Chronic Category: Medical Code(s): Z86.718 - Personal history of other venous thrombosis and embolism (3) History of pulmonary embolus (PE) Current visit: Yes Status: Chronic Category: Medical Code(s): Z86.711 - Personal history of pulmonary embolism (4) Asthma Current visit: Yes Status: Chronic Category: Medical Code(s): J45.909 - Unspecified asthma, uncomplicated (5) History of left below knee amputation Current visit: Yes Status: Chronic Category: Medical Code(s): Z89.512 - Acquired absence of left leg below knee (6) HBP (high blood pressure) Current visit: No Status: Chronic Category: Medical Code(s): I10 - Essential (primary) hypertension (7) Metastasis Current visit: No Status: Chronic Category: Medical Code(s): C79.9 - Secondary malignant neoplasm of unspecified site (8) Thyroid cancer Current visit: No Status: Chronic Category: Medical Code(s): C73 - Malignant neoplasm of thyroid gland (9) Type 2 diabetes mellitus Current visit: No Status: Chronic Category: Medical Code(s): E11.9 - Type 2 diabetes mellitus without complications (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 <Prem Pandya - Last Filed: 10/18/18 08:44> Internal Medicine - PN: Subj *Date: 10/18/18 *Time: 08:43 Exam Vital signs and Labs for Last 24 Hours: Temp Pulse Resp BP Pulse Ox 99.2 F 101 H 20 161/72 H 93 L 10/18/18 03:53 10/18/18 03:53 10/18/18 03:53 10/18/18 03:53 10/18/18 03:53 Laboratory Results - last 24 hr 10/16/18 21:06: POC Glucose 198 H 10/17/18 04:47: POC Glucose 206 H 10/17/18 06:30: Total Counted 100, Neutrophils % (Manual) 88 H, Lymphocytes % (Manual) 5 L, Monocytes % (Manual) 7, Platelet Estimate Normal, RBC Morphology Normal 10/17/18 11:40: POC Glucose 212 H 10/17/18 16:53: POC Glucose 180 H 10/17/18 21:19: POC Glucose 201 H 10/18/18 05:44: WBC 13.3 H, RBC 4.01 L, Hgb 11.3 L, Hct 34.3 L, MCV 85.6, MCH 28.2, MCHC 33.0, RDW 14.3, Plt Count 255, MPV 7.6, Neut % (Auto) 87.2 H, Lymph % (Auto) 6.5 L, Story % (Auto) 5.7, Eos % (Auto) 0.5, Baso % (Auto) 0.1, Neut # (Auto) 11.6 H, Lymph # (Auto) 0.9, [place] # (Auto) 0.8, Eos # (Auto) 0.1, Baso # (Auto) 0.0 10/18/18 05:44: PT 14.2 H, INR 1.39 H 10/18/18 05:44: Sodium 133 L, Potassium 3.8, Chloride 99, Carbon Dioxide 26, Anion Gap 11.8, BUN 9 D, Creatinine 0.72, Estimated Creat Clear 132, Estimated GFR 112, Est GFR ( Amer) 135 D, Glucose 202 H, Calcium 8.6, Total Bilirubin 0.8, AST 22, ALT 48, Alkaline Phosphatase 157 H, Total Protein 7.0, Albumin 2.2 L D, Globulin 4.8 H, Albumin/Globulin Ratio 0.5 L 10/18/18 05:45: POC Glucose 195 H I & O for Last 24 hours: Intake & Output 10/15/18 10/16/18 10/17/18 10/18/18 11:59 11:59 11:59 11:59 Intake Total 2561 / 2561 2878 / 2878 Output Total 1200 / 1200 2059 / 2060 Balance 1361 / 1361 818 / 818 Weight 386 lb 394 lb 6 oz Assessment and Plan (1) Cholecystitis Current visit: Yes Status: Acute Category: Medical Code(s): K81.9 - Cholecystitis, unspecified (2) History of DVT (deep vein thrombosis) Current visit: Yes Status: Chronic Category: Medical Code(s): Z86.718 - Personal history of other venous thrombosis and embolism (3) History of pulmonary embolus (PE) Current visit: Yes Status: Chronic Category: Medical Code(s): Z86.711 - Personal history of pulmonary embolism (4) Asthma Current visit: Yes Status: Chronic Category: Medical Code(s): J45.909 - Unspecified asthma, uncomplicated (5) History of left below knee amputation Current visit: Yes Status: Chronic Category: Medical Code(s): Z89.512 - Acquired absence of left leg below knee (6) HBP (high blood pressure) Current visit: No Status: Chronic Category: Medical Code(s): I10 - Ess ential (primary) hypertension (7) Metastasis Current visit: No Status: Chronic Category: Medical Code(s): C79.9 - Secondary malignant neoplasm of unspecified site (8) Thyroid cancer Current visit: No Status: Chronic Category: Medical Code(s): C73 - Malignant neoplasm of thyroid gland (9) Type 2 diabetes mellitus Current visit: No Status: Chronic Category: Medical Code(s): E11.9 - Type 2 diabetes mellitus without complications (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 He is still uncomfortable with pain. INR is in satisfactory range and Dr. Tovar is scheduling surgery for today.
[2018-10-18 09:33] LABS: Eosinophils % 2 % (0-3); Lymphocytes % 6 % (10-50); Monocytes % 3 % (2-9); Neutrophils % 89 % (42-76); RBC Morphology Normal; Total Cells Counted 100
--- NOTE | 2018-10-18 14:38 | Operative Note ---
Date of procedure: 10/18/18 Pre-op Diagnosis:: Acute cholecystitis Post-op Diagnosis:: Gangrenous calculus cholecystitis Procedure performed:: Laparoscopic cholecystectomy Surgeon:: Clem Tovar MD GROUP SALES MANAGER:: Johnathan Urbina Anesthesia: GETA Estimated blood loss (mL): 600 Operative findings:: Multiple complex/dense midline adhesions between small bowel/omentum/anterior abdominal wall Severe cholecystitis with necrosis of the dome of gallbladder Severe inflammation and friability throughout infundibulum Operative note:: After informed consent was obtained the patient was taken to the operating room and placed in the supine position. General anesthesia was induced and his abdomen was prepped and draped in a sterile fashion. After infiltration with local anesthetic a small stab incision was made in the left upper quadrant. A Veress needle was placed in position. The abdomen was insufflated. A 5 mm optical trocar was placed in the left mid flank. Complex dense midline adhesions were noted. Multiple loops of small bowel and a fairly large portion of the omentum noted to be densely adhered to the anterior abdominal wall. No obvious injury to small bowel noted. After infiltration with local anesthetic an incision was made in the subxiphoid region. A 12 mm trocar was placed in position. Under direct visualization a 5 mm trocar was placed in the right upper quadrant/flank and an additional 5 mm trocar was placed in the mid right upper quadrant. A final 5 mm trocar was placed just to the right of the mid abdomen and the supraumbilical region. The placement of the trocars was chosen in order to avoid any midline placement due to the above-stated dense adhesions. Careful retraction bluntly was utilized to expose the gallbladder. The dome of the gallbladder was grossly necrotic with gangrenous changes noted from the dome to the mid upper region. The a small otomy was made in the left lateral portion of the dome and the contents were evacuated. The gallbladder was carefully elevated. Severe inflammatory changes were noted throughout and significant inflammation was noted in and around the infundibulum making dissection and visualization exceptionally difficult. No advantage in terms of visualization or safety was felt to be gained by converting to open so the decision was made to proceed with the laparoscopic approach. The tissue around the cystic duct was carefully dissected. This dissection was exceptionally difficult. 3 clips were placed on the duct and it was transected sharply at the margin of the gallbladder. Bilious leak confirmed this to be the cystic duct. In a similar manner the cystic artery was isolated and controlled with clips prior to transection. The gallbladder was from the liver margin utilizing harmonic tommy. This dissection was very difficult as there was no definitive plane in multiple regions. Partial hepatic parenchyma excised with gallbladder (particularly in the dome region). The gallbladder was placed in a retrieval bag and removed through the subxiphoid trocar site. The subxiphoid trocar site was expanded along both lateral margins to allow removal of the gallbladder. #10 flat [place] drains were then carefully placed in the gallbladder fossa and secured with interrupted nylon. No sign of active bleeding noted. No sign of bile leak noted. The fascia at the subxiphoid trocar site was reapproximated with 0 Ethibond. Skin closed with 4-0 Monocryl after removal of remaining trocars. The patient's anesthetic agents were reversed and he was extubated prior to transfer to recovery. Condition: stable Disposition: PACU Specimens:: Gallbladder and contents Complications:: No immediate
--- NOTE | 2018-10-18 14:38 | Progress Note ---
[facility] Anesthesia Checklist - Patient Identification Patient Identification: Arm Band - Structural Data Admitted From: Inpatient Planned Operative Procedure/s: lap macey Consent for Planned Operative Procedure(s) Verified: Yes Verified Documents: Surgical Consent, History and Physical - NPO Status Verified Time NPO: 00:00 - Additional verifications Anesthesia Reactions: No - Airway Assessment C-Spine Mobility Assessed: Yes TMJ Mobility Assessed: Yes Dentition: Poor Dentition - Neurological Assessment Level of Consciousness: Awake, Alert - Anesthesia Plan Anesthesia Risk discussed: Yes Anesthesia Plan: Verified ASA Class: IV Anesthesia Type: General [facility] History I have reviewed the patient's past medical history: Yes Medical History: Reports:: Cancer (metastatic thyroid), Deep Vein Thrombosis, Diabetes Mellitus Type 2, Hyperlipidemia, Hypertension, Pulmonary Embolism Denies:: Diabetes Mellitus Type 1, MRSA, Seizures *Have you ever received a pneumonia vaccine?: Yes *Have you received a flu vaccine this season?: Yes Other Medical History: Reports: Thyroid Disease, Other. Denies: Blood Transfusion Reaction Laterality Cases: Left: Other, Bilateral: Tonsillectomy Other Surgeries: Yes: Thyroidectomy (with radioactive iodine), Other (left BKA, Tumor removed from spine, ORIF pathologic humeral fx) Amputation: Yes - *Social History Educational Level: Completed High School Smoking Status: Former smoker Alcohol Intake: never Alcohol Intake Frequency:: 0-2 drinks per day *Occupational Status:: retired Housing: house Household Members: spouse *Travel in the last 8 weeks: None - Psychiatric History Expresses thoughts of harming self/others: None Suicide Plan Description: No Plan Family Hx:: No significant family history, Adopted
--- NOTE | 2018-10-18 14:39 | Progress Note ---
[facility] Anesthesia Record Part I Intake, IV Amount: 1,400 Estimated blood loss (mL): 600 Urine output (mL): 600 Blood Pressure: 153/108 SaO2: 97 Pulse Rate: 104 Respiratory Rate: 16 Temperature: 98.6 F Patient is:: Drowsy, Stable Stable to PACU at:: 14:30
--- NOTE | 2018-10-18 14:40 | Progress Note ---
[facility] Anesthesia Record Part II Discharge Time: 15:00 Destination: 2nd floor PACU nurse assessment reviewed?: Yes Patient Condition:: Good Anesthesia Complications:: None Swallowing reflex intact?: Yes Cyanosis?: No
--- NOTE | 2018-10-18 18:22 | Progress Note ---
Internal Medicine - PN: Subj *Date: 10/18/18 *Time: 18:19 Interval history: His postoperative pain is not being relieved with the morphine. Blood pressure is elevated and his sats are in the upper 80s. Exam Vital signs and Labs for Last 24 Hours: Temp Pulse Resp BP Pulse Ox 99.0 F 99 H 14 182/90 H 99 10/18/18 15:13 10/18/18 15:13 10/18/18 15:13 10/18/18 15:13 10/18/18 15:13 Laboratory Results - last 24 hr 10/17/18 21:19: POC Glucose 201 H 10/18/18 05:44: WBC 13.3 H, RBC 4.01 L, Hgb 11.3 L, Hct 34.3 L, MCV 85.6, MCH 28.2, MCHC 33.0, RDW 14.3, Plt Count 255, MPV 7.6, Neut % (Auto) 87.2 H, Lymph % (Auto) 6.5 L, [place] % (Auto) 5.7, Eos % (Auto) 0.5, Baso % (Auto) 0.1, Neut # (Auto) 11.6 H, Lymph # (Auto) 0.9, [place] # (Auto) 0.8, Eos # (Auto) 0.1, Baso # (Auto) 0.0, Total Counted 100, Neutrophils % (Manual) 89 H, Lymphocytes % (Manual) 6 L, Monocytes % (Manual) 3, Eosinophils % (Manual) 2, Platelet Estimate Normal, RBC Morphology Normal 10/18/18 05:44: PT 14.2 H, INR 1.39 H 10/18/18 05:44: Sodium 133 L, Potassium 3.8, Chloride 99, Carbon Dioxide 26, Anion Gap 11.8, BUN 9 D, Creatinine 0.72, Estimated Creat Clear 132, Estimated GFR 112, Est GFR ( Amer) 135 D, Glucose 202 H, Calcium 8.6, Total Bilirubin 0.8, AST 22, ALT 48, Alkaline Phosphatase 157 H, Total Protein 7.0, Albumin 2.2 L D, Globulin 4.8 H, Albumin/Globulin Ratio 0.5 L 10/18/18 05:45: POC Glucose 195 H 10/18/18 12:05: Urine RBC Occasional, Urine WBC 3-5, Ur Squamous Epith Cells Occasional, Urine Bacteria None 10/18/18 16:19: POC Glucose 234 H I & O for Last 24 hours: Intake & Output 10/16/18 10/17/18 10/18/18 10/19/18 11:59 11:59 11:59 11:59 Intake Total 2561 / 2561 2878 / 2878 1400 / 1400 Output Total 1200 / 1200 2060 / 2060 800 / 800 Balance 1361 / 1361 818 / 818 600 / 600 Weight 386 lb 394 lb 6 oz 394 lb 5.982 oz Narrative: He appears uncomfortable with the pain. Color is normal. Lungs are clear to auscultation. Right lower extremity shows no edema. Assessment and Plan (1) Cholecystitis Current visit: Yes Status: Acute Category: Medical Code(s): K81.9 - Cholecystitis, unspecified (2) History of DVT (deep vein thrombosis) Current visit: Yes Status: Chronic Category: Medical Code(s): Z86.718 - Personal history of other venous thrombosis and embolism (3) History of pulmonary embolus (PE) Current visit: Yes Status: Chronic Category: Medical Code(s): Z86.711 - Personal history of pulmonary embolism (4) Asthma Current visit: Yes Status: Chronic Category: Medical Code(s): J45.909 - Unspecified asthma, uncomplicated (5) History of left below knee amputation Current visit: Yes Status: Chronic Category: Medical Code(s): Z89.512 - Acquired absence of left leg below knee (6) HBP (high blood pressure) Current visit: No Status: Chronic Category: Medical Code(s): I10 - Essential (primary) hypertension (7) Metastasis Current visit: No Status: Chronic Category: Medical Code(s): C79.9 - Secondary malignant neoplasm of unspecified site (8) Thyroid cancer Current visit: No Status: Chronic Category: Medical Code(s): C73 - Malignant neoplasm of thyroid gland (9) Type 2 diabetes mellitus Current visit: No Status: Chronic Category: Medical Code(s): E11.9 - Type 2 diabetes mellitus without complications (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 Also note that his IV fluids are still running at 175 mL/h and will decrease this to 125/h. I advised the nursing staff to contact his surgeon if his pain continues to escalate and is uncontrolled by switching to Stadol.
[2018-10-18 20:37] LABS: Hemoglobin 10.9 g/dL (14.1-18.0)
[2018-10-19 06:35] LABS: Basophils % 0.3 % (0.1-2.0); Hematocrit 32.8 % (42.0-52.0); Monocytes # 0.7 K/mm3 (0.1-1.0); Red Blood Count 3.76 M/mm3 (4.60-6.20)
[2018-10-19 06:41] LABS: Eosinophils # 0.1 K/mm3 (0.0-0.4); Eosinophils % 1.5 % (0.1-12.0); Lymphocytes # 1.1 K/mm3 (0.7-4.5); Lymphocytes % 11.5 % (10-50); Mean Corpuscular HGB Conc 32.4 g/dL (31.8-35.4); Mean Corpuscular Hemoglobin 28.3 pg (27.0-31.2); Mean Corpuscular Volume 87.3 fl (80-94); Mean Platelet Volume 7.6 fl (7.4-10.4); Neutrophils # 7.5 K/mm3 (1.8-7.8); Neutrophils % 79.7 % (37.0-80.0); Platelet Count 265 K/mm3 (142-424); Red Cell Distribution Width 14.2 % (11.5-17.5); White Blood Count 9.4 K/mm3 (4.8-10.8)
[2018-10-19 06:44] LABS: Hemoglobin 10.6 g/dL (14.1-18.0)
[2018-10-19 06:53] LABS: Albumin/Globulin Ratio 0.5 (1.1-1.8); Bilirubin,Total 0.6 mg/dL (0.2-1.0); Globulin 3.7 gm/dl (1.3-3.2); Total Protein,Serum 5.7 gm/dL (6.4-8.2)
--- NOTE | 2018-10-19 09:01 | Progress Note ---
Internal Medicine - PN: Subj *Date: 10/19/18 *Time: 09:18 Interval history: He finally got relief from his pain last night and was able to rest some during the night. This morning he has more pain in his lower back and his stomach. This is related to some chronic back pain issues. He denies nausea and actually feels hungry. Exam Vital signs and Labs for Last 24 Hours: Temp Pulse Resp BP Pulse Ox 97.9 F 88 20 170/85 H 97 10/19/18 07:53 10/19/18 07:53 10/19/18 07:53 10/19/18 07:53 10/19/18 07:53 Laboratory Results - last 24 hr 10/18/18 05:44: Total Counted 100, Neutrophils % (Manual) 89 H, Lymphocytes % (Manual) 6 L, Monocytes % (Manual) 3, Eosinophils % (Manual) 2, Platelet Estimate Normal, RBC Morphology Normal 10/18/18 12:05: Urine Color Yellow, Urine Appearance Clear, Urine pH 7.5, Ur Specific [place] 1.010, Urine Protein Negative, Urine Glucose (UA) Negative, Urine Ketones 2+, Urine Blood Negative, Urine Nitrate Negative, Urine Bilirubin Negative, Urine Urobilinogen 1.0, Ur Leukocyte Esterase Negative, Urine RBC Occasional, Urine WBC 3-5, Ur Squamous Epith Cells Occasional, Urine Bacteria None 10/18/18 16:19: POC Glucose 234 H 10/18/18 20:24: POC Glucose 220 H 10/18/18 20:31: Hgb 10.9 L, Hct 32.0 L 10/19/18 06:10: WBC 9.4 D, RBC 3.76 L, Hgb 10.6 L, Hct 32.8 L, MCV 87.3, MCH 28.3, MCHC 32.4, RDW 14.2, Plt Count 265, MPV 7.6, Neut % (Auto) 79.7, Lymph % (Auto) 11.5, [place] % (Auto) 7.0, Eos % (Auto) 1.5, Baso % (Auto) 0.3, Neut # (Auto) 7.5, Lymph # (Auto) 1.1, [place] # (Auto) 0.7, Eos # (Auto) 0.1, Baso # (Auto) 0.0 10/19/18 06:10: Sodium 138, Potassium 4.0, Chloride 101, Carbon Dioxide 29, Anion Gap 12.0, BUN 12 D, Creatinine 0.79, Estimated Creat Clear 120, Estimated GFR 100, Est GFR ( Amer) 121, Glucose 189 H, Calcium 8.0 L, Total Bilirubin 0.6, AST 32 D, ALT 59, Alkaline Phosphatase 165 H, Total Protein 5.7 L, Albumin 2.0 L, Globulin 3.7 H, Albumin/Globulin Ratio 0.5 L 10/19/18 06:48: POC Glucose 199 H I & O for Last 24 hours: Intake & Output 10/16/18 10/17/18 10/18/18 10/19/18 11:59 11:59 11:59 11:59 Intake Total 2561 / 2561 2878 / 2878 2560 / 2560 Output Total 1200 / 1200 2060 / 0 1999 Balance 1361 / 1361 818 / 818 560 / 560 Weight 386 lb 394 lb 6 oz 394 lb 5 oz Narrative: He is lying in bed with nasal oxygen. Color is good. He appears in no distress. Lungs are clear to auscultation. Abdomen is obese, soft and nondistended. Bowel sounds are present but diminished. There is appropriate postoperative tenderness. Assessment and Plan (1) Cholecystitis Current visit: Yes Status: Acute Category: Medical Code(s): K81.9 - Cholecystitis, unspecified (2) History of DVT (deep vein thrombosis) Current visit: Yes Status: Chronic Category: Medical Code(s): Z86.718 - Personal history of other venous thrombosis and embolism (3) History of pulmonary embolus (PE) Current visit: Yes Status: Chronic Category: Medical Code(s): Z86.711 - Personal history of pulmonary embolism (4) Asthma Current visit: Yes Status: Chronic Category: Medical Code(s): J45.909 - Unspecified asthma, uncomplicated (5) History of left below knee amputation Current visit: Yes Status: Chronic Category: Medical Code(s): Z89.512 - Acquired absence of left leg below knee (6) HBP (high blood pressure) Current visit: No Status: Chronic Category: Medical Code(s): I10 - Essential (primary) hypertension (7) Metastasis Current visit: No Status: Chronic Category: Medical Code(s): C79.9 - Secondary malignant neoplasm of unspecified site (8) Thyroid cancer Current visit: No Status: Chronic Category: Medical Code(s): C73 - Malignant neoplasm of thyroid gland (9) Type 2 diabetes mellitus Current visit: No Status: Chronic Category: Medical Code(s): E11.9 - Type 2 diabetes mellitus without complications (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 Consider advancing his diet if okay with the surgeons. He is encouraged to be out of bed and up in the chair today.
--- NOTE | 2018-10-19 09:10 | Progress Note ---
Subjective Narrative: Patient had some postoperative pain yesterday evening but this is now improved. At this point feels well. Has tolerated clear liquid diet and wants some regular food. Exam Vital signs and Labs for Last 24 Hours: Temp Pulse Resp BP Pulse Ox 97.9 F 88 20 170/85 H 97 10/19/18 07:53 10/19/18 07:53 10/19/18 07:53 10/19/18 07:53 10/19/18 07:53 Laboratory Results - last 24 hr 10/18/18 05:44: Total Counted 100, Neutrophils % (Manual) 89 H, Lymphocytes % (Manual) 6 L, Monocytes % (Manual) 3, Eosinophils % (Manual) 2, Platelet Estimate Normal, RBC Morphology Normal 10/18/18 12:05: Urine Color Yellow, Urine Appearance Clear, Urine pH 7.5, Ur Specific [place] 1.010, Urine Protein Negative, Urine Glucose (UA) Negative, Urine Ketones 2+, Urine Blood Negative, Urine Nitrate Negative, Urine Bilirubin Negative, Urine Urobilinogen 1.0, Ur Leukocyte Esterase Negative, Urine RBC Occasional, Urine WBC 3-5, Ur Squamous Epith Cells Occasional, Urine Bacteria None 10/18/18 16:19: POC Glucose 234 H 10/18/18 20:24: POC Glucose 220 H 10/18/18 20:31: Hgb 10.9 L, Hct 32.0 L 10/19/18 06:10: WBC 9.4 D, RBC 3.76 L, Hgb 10.6 L, Hct 32.8 L, MCV 87.3, MCH 28.3, MCHC 32.4, RDW 14.2, Plt Count 265, MPV 7.6, Neut % (Auto) 79.7, Lymph % (Auto) 11.5, [place] % (Auto) 7.0, Eos % (Auto) 1.5, Baso % (Auto) 0.3, Neut # (Auto) 7.5, Lymph # (Auto) 1.1, [place] # (Auto) 0.7, Eos # (Auto) 0.1, Baso # (Auto) 0.0 10/19/18 06:10: Sodium 138, Potassium 4.0, Chloride 101, Carbon Dioxide 29, Anion Gap 12.0, BUN 12 D, Creatinine 0.79, Estimated Creat Clear 120, Estimated GFR 100, Est GFR ( Amer) 121, Glucose 189 H, Calcium 8.0 L, Total Bilirubin 0.6, AST 32 D, ALT 59, Alkaline Phosphatase 165 H, Total Protein 5.7 L, Albumin 2.0 L, Globulin 3.7 H, Albumin/Globulin Ratio 0.5 L 10/19/18 06:48: POC Glucose 199 H I & O for Last 24 hours: Intake & Output 10/16/18 10/17/18 10/18/18 10/19/18 11:59 11:59 11:59 11:59 Intake Total 2561 / 2561 2878 / 2878 2560 / 2560 Output Total 1200 / 1200 2060 / 2060 1999 / 1999 Balance 1361 / 1361 818 / 818 560 / 560 Weight 386 lb 394 lb 6 oz 394 lb 5 oz - *Routine Abdominal Exam Comments: [place] sites dressed and intact. ERNA drain light serosanguineous drainage without purulence or bile. 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
--- NOTE | 2018-10-19 14:32 | Progress Note ---
Internal Medicine - PN: Subj *Date: 10/19/18 *Time: 14:32 Exam Vital signs and Labs for Last 24 Hours: Temp Pulse Resp BP Pulse Ox 98.4 F 94 H 20 175/78 H 94 L 10/19/18 12:09 10/19/18 12:09 10/19/18 12:09 10/19/18 12:09 10/19/18 12:09 Laboratory Results - last 24 hr 10/18/18 12:05: Urine Color Yellow, Urine Appearance Clear, Urine pH 7.5, Ur Specific [place] 1.010, Urine Protein Negative, Urine Glucose (UA) Negative, Urine Ketones 2+, Urine Blood Negative, Urine Nitrate Negative, Urine Bilirubin Negative, Urine Urobilinogen 1.0, Ur Leukocyte Esterase Negative, Urine RBC Occasional, Urine WBC 3-5, Ur Squamous Epith Cells Occasional, Urine Bacteria None 10/18/18 16:19: POC Glucose 234 H 10/18/18 20:24: POC Glucose 220 H 10/18/18 20:31: Hgb 10.9 L, Hct 32.0 L 10/19/18 06:10: WBC 9.4 D, RBC 3.76 L, Hgb 10.6 L, Hct 32.8 L, MCV 87.3, MCH 28.3, MCHC 32.4, RDW 14.2, Plt Count 265, MPV 7.6, Neut % (Auto) 79.7, Lymph % (Auto) 11.5, [place] % (Auto) 7.0, Eos % (Auto) 1.5, Baso % (Auto) 0.3, Neut # (Auto) 7.5, Lymph # (Auto) 1.1, [place] # (Auto) 0.7, Eos # (Auto) 0.1, Baso # (Auto) 0.0 10/19/18 06:10: Sodium 138, Potassium 4.0, Chloride 101, Carbon Dioxide 29, Anion Gap 12.0, BUN 12 D, Creatinine 0.79, Estimated Creat Clear 120, Estimated GFR 100, Est GFR ( Amer) 121, Glucose 189 H, Calcium 8.0 L, Total Bilirubin 0.6, AST 32 D, ALT 59, Alkaline Phosphatase 165 H, Total Protein 5.7 L, Albumin 2.0 L, Globulin 3.7 H, Albumin/Globulin Ratio 0.5 L 10/19/18 06:48: POC Glucose 199 H 10/19/18 11:35: POC Glucose 236 H I & O for Last 24 hours: Intake & Output 10/16/18 10/17/18 10/18/18 10/19/18 23:59 23:59 23:59 23:59 Intake Total 1150 / 1150 2611 / 2611 3558 / 3558 1160 / 1160 Output Total 2460 / 2460 1600 / 1600 2100 / 2100 Balance 1150 / 1150 151 / 151 195 / 1957 -940 / -940 Weight 174.633 kg 175.087 kg 178.885 kg 178.857 kg Assessment and Plan (1) Cholecystitis Current visit: Yes Status: Acute Category: Medical Code(s): K81.9 - Cholecystitis, unspecified (2) History of DVT (deep vein thrombosis) Current visit: Yes Status: Chronic Category: Medical Code(s): Z86.718 - Personal history of other venous thrombosis and embolism (3) History of pulmonary embolus (PE) Current visit: Yes Status: Chronic Category: Medical Code(s): Z86.711 - Personal history of pulmonary embolism (4) Asthma Current visit: Yes Status: Chronic Category: Medical Code(s): J45.909 - Unspecified asthma, uncomplicated (5) History of left below knee amputation Current visit: Yes Status: Chronic Category: Medical Code(s): Z89.512 - Acquired absence of left leg below knee (6) HBP (high blood pressure) Current visit: No Status: Chronic Category: Medical Code(s): I10 - Essential (primary) hypertension (7) Metastasis Current visit: No Status: Chronic Category: Medical Code(s): C79.9 - Secondary malignant neoplasm of unspecified site (8) Thyroid cancer Current visit: No Status: Chronic Category: Medical Code(s): C73 - Malignant neoplasm of thyroid gland (9) Type 2 diabetes mellitus Current visit: No Status: Chronic Category: Medical Code(s): E11.9 - Type 2 diabetes mellitus without complications (10) Degenerative joint disease (DJD) of lumbar spine Current visit: No Status: Chronic Category: Medical Code(s): M47.816 - Spondylosis without myelopathy or radiculopathy, lumbar region The patient's infection will respond to the chosen ABx?: Yes Is the patient receiving the right drug, dose, and route?: Yes Could a more targeted ABx be ordered?: No
[2018-10-20 06:03] LABS: Basophils % 0.5 % (0.1-2.0); Eosinophils # 0.3 K/mm3 (0.0-0.4); Hematocrit 31.7 % (42.0-52.0); Hemoglobin 10.2 g/dL (14.1-18.0); Lymphocytes % 12.4 % (10-50); Mean Corpuscular HGB Conc 32.2 g/dL (31.8-35.4); Mean Corpuscular Hemoglobin 28.2 pg (27.0-31.2); Mean Corpuscular Volume 87.6 fl (80-94); Mean Platelet Volume 7.8 fl (7.4-10.4); Monocytes # 0.6 K/mm3 (0.1-1.0); Neutrophils % 76.2 % (37.0-80.0); Platelet Count 278 K/mm3 (142-424); Red Blood Count 3.61 M/mm3 (4.60-6.20); Red Cell Distribution Width 14.3 % (11.5-17.5); White Blood Count 7.9 K/mm3 (4.8-10.8)
[2018-10-20 06:23] LABS: Albumin Level 1.9 gm/dL (3.4-5.0); Albumin/Globulin Ratio 0.4 (1.1-1.8); Anion Gap 8.8 mEq/L (5-15); Bilirubin,Total 0.4 mg/dL (0.2-1.0); Calcium 8.7 mg/dL (8.5-10.1); Globulin 4.9 gm/dl (1.3-3.2); Potassium 3.8 mmoL/L (3.5-5.1); Total Protein,Serum 6.8 gm/dL (6.4-8.2)
--- NOTE | 2018-10-20 08:20 | Progress Note ---
Subjective Patient reports: feels better Narrative: Tolerated diabetic diet. Exam Vital signs and Labs for Last 24 Hours: Temp Pulse Resp BP Pulse Ox 98.7 F 83 20 156/70 H 98 10/20/18 08:00 10/20/18 08:00 10/20/18 08:00 10/20/18 08:00 10/20/18 08:00 Laboratory Results - last 24 hr 10/19/18 11:35: POC Glucose 236 H 10/19/18 16:28: POC Glucose 217 H 10/19/18 20:39: POC Glucose 245 H 10/20/18 05:34: POC Glucose 217 H 10/20/18 05:35: WBC 7.9, RBC 3.61 L, Hgb 10.2 L, Hct 31.7 L, MCV 87.6, MCH 28.2, MCHC 32.2, RDW 14.3, Plt Count 278, MPV 7.8, Neut % (Auto) 76.2, Lymph % (Auto) 12.4, [place] % (Auto) 7.0, Eos % (Auto) 4.0, Baso % (Auto) 0.5, Neut # (Auto) 6.0, Lymph # (Auto) 1.0, [place] # (Auto) 0.6, Eos # (Auto) 0.3, Baso # (Auto) 0.0 10/20/18 05:35: Sodium 137, Potassium 3.8, Chloride 101, Carbon Dioxide 31, Anion Gap 8.8, BUN 11, Creatinine 0.82, Estimated Creat Clear 116, Estimated GFR 96, Est GFR ( Amer) 116, Glucose 220 H, Calcium 8.7, Total Bilirubin 0.4, AST 28, ALT 54, Alkaline Phosphatase 211 H, Total Protein 6.8, Albumin 1.9 L, Globulin 4.9 H, Albumin/Globulin Ratio 0.4 L I & O for Last 24 hours: Intake & Output 10/17/18 10/18/18 10/19/18 10/20/18 11:59 11:59 11:59 11:59 Intake Total 2561 / 2561 2878 / 2878 2800 / 2800 5140 / 5140 Output Total 1200 / 1200 2060 / 2060 1999 / 1999 2420 / 2420 Balance 1361 / 1361 818 / 818 800 / 800 2720 / 2720 Weight 386 lb 394 lb 6 oz 394 lb 5 oz 394 lb 5 oz - *Routine Abdominal Exam Present: soft Comments: ERNA drain serous. 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 Discharge soon with close outpatient follow up.
--- NOTE | 2018-10-20 08:50 | Progress Note ---
Internal Medicine - PN: Subj *Date: 10/20/18 *Time: 09:08 Interval history: Continues to improve. Tolerating diet. Feels like he is having some swelling - his prosthesis is not fitting right. Exam Vital signs and Labs for Last 24 Hours: Temp Pulse Resp BP Pulse Ox 98.7 F 83 20 156/70 H 98 10/20/18 08:00 10/20/18 08:00 10/20/18 08:00 10/20/18 08:00 10/20/18 08:00 Laboratory Results - last 24 hr 10/19/18 11:35: POC Glucose 236 H 10/19/18 16:28: POC Glucose 217 H 10/19/18 20:39: POC Glucose 245 H 10/20/18 05:34: POC Glucose 217 H 10/20/18 05:35: WBC 7.9, RBC 3.61 L, Hgb 10.2 L, Hct 31.7 L, MCV 87.6, MCH 28.2, MCHC 32.2, RDW 14.3, Plt Count 278, MPV 7.8, Neut % (Auto) 76.2, Lymph % (Auto) 12.4, [place] % (Auto) 7.0, Eos % (Auto) 4.0, Baso % (Auto) 0.5, Neut # (Auto) 6.0, Lymph # (Auto) 1.0, [place] # (Auto) 0.6, Eos # (Auto) 0.3, Baso # (Auto) 0.0 10/20/18 05:35: Sodium 137, Potassium 3.8, Chloride 101, Carbon Dioxide 31, Anion Gap 8.8, BUN 11, Creatinine 0.82, Estimated Creat Clear 116, Estimated GFR 96, Est GFR ( Amer) 116, Glucose 220 H, Calcium 8.7, Total Bilirubin 0.4, AST 28, ALT 54, Alkaline Phosphatase 211 H, Total Protein 6.8, Albumin 1.9 L, Globulin 4.9 H, Albumin/Globulin Ratio 0.4 L I & O for Last 24 hours: Intake & Output 10/17/18 10/18/18 10/19/18 10/20/18 11:59 11:59 11:59 11:59 Intake Total 2561 / 2561 2878 / 2878 2800 / 2800 5140 / 5140 Output Total 1200 / 1200 2060 / 2059 2420 / 2420 Balance 1361 / 1361 818 / 818 800 / 800 2720 / 2720 Weight 386 lb 394 lb 6 oz 394 lb 5 oz 394 lb 5 oz Narrative: He is alert and appears in no distress. Color is good. Lungs are clear to auscultation. Heart tones are distant but regular. Abdomen is obese and nondistended. Bowel sounds are present. Appropriate postoperative tenderness. Assessment and Plan (1) Cholecystitis Current visit: Yes Status: Acute Category: Medical Code(s): K81.9 - Cholecystitis, unspecified (2) History of DVT (deep vein thrombosis) Current visit: Yes Status: Chronic Category: Medical Code(s): Z86.718 - Personal history of other venous thrombosis and embolism (3) History of pulmonary embolus (PE) Current visit: Yes Status: Chronic Category: Medical Code(s): Z86.711 - Personal history of pulmonary embolism (4) Asthma Current visit: Yes Status: Chronic Category: Medical Code(s): J45.909 - Unspecified asthma, uncomplicated (5) History of left below knee amputation Current visit: Yes Status: Chronic Category: Medical Code(s): Z89.512 - Acquired absence of left leg below knee (6) HBP (high blood pressure) Current visit: No Status: Chronic Category: Medical Code(s): I10 - Essential (primary) hypertension (7) Metastasis Current visit: No Status: Chronic Category: Medical Code(s): C79.9 - Secondary malignant neoplasm of unspecified site (8) Thyroid cancer Current visit: No Status: Chronic Category: Medical Code(s): C73 - Malignant neoplasm of thyroid gland (9) Type 2 diabetes mellitus Current visit: No Status: Chronic Category: Medical Code(s): E11.9 - Type 2 diabetes mellitus without complications (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 Now that he is tolerating his diet, we will discontinue his IV fluids and restart his diabetic medications from home. We will also start back on Lovenox and his daily dose of Coumadin. Possible discharge tomorrow.
[2018-10-21 06:55] LABS: INR 1.02 (0.9-1.1); Prothrombin Time 10.5 seconds (9.4-11.8)
--- NOTE | 2018-10-21 07:22 | Progress Note ---
Subjective Patient reports: no new complaints Narrative: Patient doing well without any complaints. Exam Vital signs and Labs for Last 24 Hours: Temp Pulse Resp BP Pulse Ox 97.5 F L 61 18 128/56 L 97 10/21/18 04:00 10/21/18 04:00 10/21/18 04:00 10/21/18 04:00 10/21/18 04:00 Laboratory Results - last 24 hr 10/20/18 11:37: POC Glucose 248 H 10/20/18 16:09: POC Glucose 306 H* 10/20/18 21:02: POC Glucose 309 H* 10/21/18 05:15: PT 10.5, INR 1.02 10/21/18 06:37: POC Glucose 198 H I & O for Last 24 hours: Intake & Output 10/18/18 10/19/18 10/20/18 10/21/18 11:59 11:59 11:59 11:59 Intake Total 2878 / 2878 2800 / 2800 5483 / 5483 1010 / 1010 Output Total 2059 / 2059 1999 / 1999 2820 / 2820 95 / 95 Balance 818 / 818 800 / 800 2663 / 2663 915 / 915 Weight 394 lb 6 oz 394 lb 5 oz 394 lb 5 oz 394 lb 6 oz - Constitutional no acute distress - *Routine Abdominal Exam Present: soft Comments: ERNA drains with thin serous drainage Progress Note: A&P (1) Cholecystitis Status: Acute Current Visit: Yes (2) History of DVT (deep vein thrombosis) Status: Chronic Current Visit: Yes (3) History of pulmonary embolus (PE) Status: Chronic Current Visit: Yes (4) Asthma Status: Chronic Current Visit: Yes (5) History of left below knee amputation Status: Chronic Current Visit: Yes (6) HBP (high blood pressure) Status: Chronic Current Visit: No (7) Metastasis Status: Chronic Current Visit: No (8) Thyroid cancer Status: Chronic Current Visit: No (9) Type 2 diabetes mellitus Status: Chronic Current Visit: No (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 Tovar
--- NOTE | 2018-10-21 08:21 | Progress Note ---
<Lily Bender - Last Filed: 10/26/18 06:46> Internal Medicine - PN: Subj *Date: 10/26/18 *Time: 06:46 Interval history: Feeling better. Ready to go home. Is eating without difficulty. Bowels have moved. He is voiding without difficulty. He has ambulated in the room without problems. Has his chronic back pain. Exam Vital signs and Labs for Last 24 Hours: Temp Pulse Resp BP Pulse Ox 99.5 F 72 19 142/63 H 98 10/21/18 08:00 10/21/18 08:00 10/21/18 08:00 10/21/18 08:00 10/21/18 08:00 Laboratory Results - last 24 hr 10/20/18 11:37: POC Glucose 248 H 10/20/18 16:09: POC Glucose 306 H* 10/20/18 21:02: POC Glucose 309 H* 10/21/18 05:15: PT 10.5, INR 1.02 10/21/18 06:37: POC Glucose 198 H I & O for Last 24 hours: Intake & Output 10/18/18 10/19/18 10/20/18 10/21/18 11:59 11:59 11:59 11:59 Intake Total 2878 / 2878 2800 / 2800 5483 / 5483 1370 / 1370 Output Total 2059 / 2059 1999 / 1999 2820 / 2820 95 / 95 Balance 818 / 818 800 / 800 2663 / 2663 1275 / 1275 Weight 394 lb 6 oz 394 lb 5 oz 394 lb 5 oz 394 lb 6 oz - Constitutional no acute distress Comments: Sitting on the bedside. Has completed breakfast. Appears comfortable. - *Routine Respiratory Exam Present: CTA bilaterally (Anteriorly and posteriorly) - *Routine Cardiovascular Exam Present: RRR - *Routine Abdominal Exam Present: normoactive bowel sounds Comments: Postoperative wounds are clean and dry with Telfa application. 2 drains noted. - *Routine Extremities Exam Comments: Right leg is tight - *Routine Neurological Exam Present: alert, oriented X3 Assessment and Plan (1) Cholecystitis Status: Acute Category: Medical Code(s): K81.9 - Cholecystitis, unspecified (2) History of DVT (deep vein thrombosis) Status: Chronic Category: Medical Code(s): Z86.718 - Personal history of other venous thrombosis and embolism (3) History of pulmonary embolus (PE) Status: Chronic Category: Medical Code(s): Z86.711 - Personal history of pulmonary embolism (4) Asthma Status: Chronic Category: Medical Code(s): J45.909 - Unspecified asthma, uncomplicated (5) History of left below knee amputation Status: Chronic Category: Medical Code(s): Z89.512 - Acquired absence of left leg below knee (6) HBP (high blood pressure) Status: Chronic Category: Medical Code(s): I10 - Essential (primary) hypertension (7) Metastasis Status: Chronic Category: Medical Code(s): C79.9 - Secondary malignant neoplasm of unspecified site (8) Thyroid cancer Status: Chronic Category: Medical Code(s): C73 - Malignant neoplasm of thyroid gland (9) Type 2 diabetes mellitus Status: Chronic Category: Medical Code(s): E11.9 - Type 2 diabetes mellitus without complications (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 Patient states he has someone to help with his drains. See discharge orders <Prem Pandya - Last Filed: 10/27/18 12:29> Internal Medicine - PN: Subj *Date: 10/27/18 *Time: 12:28 Exam Vital signs and Labs for Last 24 Hours: Temp Pulse Resp BP Pulse Ox 99.5 F 72 19 142/63 H 98 10/21/18 08:00 10/21/18 08:00 10/21/18 08:00 10/21/18 08:00 10/21/18 08:00 Assessment and Plan (1) Cholecystitis Status: Acute Category: Medical Code(s): K81.9 - Cholecystitis, unspecified (2) History of DVT (deep vein thrombosis) Status: Chronic Category: Medical Code(s): Z86.718 - Personal history of other venous thrombosis and embolism (3) History of pulmonary embolus (PE) Status: Chronic Category: Medical Code(s): Z86.711 - Personal history of pulmonary embolism (4) Asthma Status: Chronic Category: Medical Code(s): J45.909 - Unspecified asthma, uncomplicated (5) History of left below knee amputation Status: Chronic Category: Medical Code(s): Z89.512 - Acquired absence of left leg below knee (6) HBP (high blood pressure) Status: Chronic Category: Medical Code(s): I10 - Essential (primary) hypertension (7) Metastasis Status: Chronic Category: Medical Code(s): C79.9 - Secondary malignant neoplasm of unspecified site (8) Thyroid cancer Status: Chronic Category: Medical Code(s): C73 - Malignant neoplasm of thyroid gland (9) Type 2 diabetes mellitus Status: Chronic Category: Medical Code(s): E11.9 - Type 2 diabetes mellitus without complications (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 Concur with plan for discharge.
[2018-10-21 08:56] LABS: Basophils # 0.1 K/mm3 (0-0.2); Basophils % 0.9 % (0.1-2.0); Eosinophils # 0.3 K/mm3 (0.0-0.4); Eosinophils % 5.4 % (0.1-12.0); Hematocrit 30.4 % (42.0-52.0); Hemoglobin 9.9 g/dL (14.1-18.0); Lymphocytes # 1.1 K/mm3 (0.7-4.5); Mean Corpuscular HGB Conc 32.6 g/dL (31.8-35.4); Mean Corpuscular Hemoglobin 28.3 pg (27.0-31.2); Mean Corpuscular Volume 86.9 fl (80-94); Mean Platelet Volume 7.8 fl (7.4-10.4); Monocytes # 0.5 K/mm3 (0.1-1.0); Monocytes % 8.6 % (1.7-9.3); Neutrophils # 4.3 K/mm3 (1.8-7.8); Neutrophils % 68.2 % (37.0-80.0); Platelet Count 305 K/mm3 (142-424); Red Cell Distribution Width 14.6 % (11.5-17.5); White Blood Count 6.3 K/mm3 (4.8-10.8)
--- NOTE | 2018-10-22 13:53 | Discharge Summary ---
General - General Admission date:: 10/16/18 <Prem Pandya - 10/27/18 12:37> 10/16/18 <Destiny Farah - 10/22/18 13:53> Discharge date: 10/21/18 <GaganDestiny - 10/22/18 13:53> HPI HPI: Mr. Worthy is a 57-year-old diabetic male with a history of PE, hypertension, asthma, metastatic thyroid cancer, and osteomyelitis status post amputation of the left lower leg. He is is currently on Coumadin. He began having right upper quadrant pain that radiated into his back. He stated the pain progressively worsened and he developed a low-grade fever. He became nauseated and was unable to eat, therefore he presented to the emergency room for further evaluation and treatment. He had a CT of the abdomen and pelvis which revealed cholecystitis. He was admitted and Dr. Tovar was consulted. <Destiny Farah - 10/22/18 13:53> Hospital Course Hospital Course: The patient's white blood cell count was elevated. Dr. Tovar saw the patient and felt he would need cholecystectomy, however his INR was elevated and he was unable to do the surgery on the day of admission. The patient was given vitamin K to lower the INR. He had a laparoscopic cholecystectomy on 10/16/18 and his postop diagnosis was gangrenous calculus cholecystitis. Dr. Tovar felt due to the findings during surgery he would need continued Invanz postop. His postop pain was not relieved with morphine and his blood pressure was elevated. His oxygen saturations decreased. His pain medication was switched to Stadol 1 mg every 2 hours and he was restarted on his blood pressure medication. His IV fluid rate was decreased from 175 mL an hour 225 mL an hour. He finally got relief from his pain was able to sleep. He felt hungry, therefore his diet was advanced. Dr. Novoa felt he could restart anticoagulation on 10/20/18. His IV fluids were discontinued and he was restarted on his diabetic medications from home. He was also started on Lovenox as a bridge until his INR normalized. Dr. Novoa felt he was stable to be discharged with ERNA drains and would need close outpatient follow-up with Dr. Tovar. The patient began feeling much better and was ready to go home. He was eating without difficulty and his bowels had moved. He was ambulating in the room without problems. He was stable to be discharged home. <Destiny Farah - 10/22/18 21:46> Objective Vital signs: Temp Pulse Resp BP Pulse Ox 99.5 F 72 19 142/63 H 98 10/21/18 08:00 10/21/18 08:00 10/21/18 08:00 10/21/18 08:00 10/21/18 08:00 <Prem Pandya - 10/27/18 12:37> Temp Pulse Resp BP Pulse Ox 99.5 F 72 19 142/63 H 98 10/21/18 08:00 10/21/18 08:00 10/21/18 08:00 10/21/18 08:00 10/21/18 08:00 <Destiny Farah - 10/22/18 13:53> Narrative: - Constitutional no acute distress Comments: Sitting on the bedside. Has completed breakfast. Appears comfortable. - *Routine Respiratory Exam Present: CTA bilaterally (Anteriorly and posteriorly) - *Routine Cardiovascular Exam Present: RRR - *Routine Abdominal Exam Present: normoactive bowel sounds Comments: Postoperative wounds are clean and dry with Telfa application. 2 drains noted. - *Routine Extremities Exam Comments: Right leg is tight - *Routine Neurological Exam Present: alert, oriented X3 <Destiny Farah - 10/22/18 13:53> DS: Diagnosis - Discharge Diagnosis (1) Cholecystitis Status: Acute (2) History of DVT (deep vein thrombosis) Status: Chronic (3) History of pulmonary embolus (PE) Status: Chronic (4) Asthma Status: Chronic (5) History of left below knee amputation Status: Chronic (6) HBP (high blood pressure) Status: Chronic (7) Metastasis Status: Chronic (8) Thyroid cancer Status: Chronic (9) Type 2 diabetes mellitus Status: Chronic (10) Degenerative joint disease (DJD) of lumbar spine Status: Chronic <Destiny Farah - 10/22/18 21:39> (1) Cholecystitis Status: Acute (2) History of DVT (deep vein thrombosis) Status: Chronic (3) History of pulmonary embolus (PE) Status: Chronic (4) Asthma Status: Chronic (5) History of left below knee amputation Status: Chronic (6) HBP (high blood pressure) Status: Chronic (7) Metastasis Status: Chronic (8) Thyroid cancer Status: Chronic (9) Type 2 diabetes mellitus Status: Chronic (10) Degenerative joint disease (DJD) of lumbar spine Status: Chronic <Prem Pandya - 10/27/18 12:37> Discharge Plan - Patient Discharge Instructions Additional Instructions: monitor drain output. follow up with md, call with any concerns. <Prem Pandya - 10/27/18 12:37> Patient Instructions: DI for Ac-Guerrero Drains, How to Use and Care for Your Ac-Guerrero Drain, DI for Cholecystitis, Coumadin Vitamin K/ Diet, Coumadin Therapy Booklet <Prem Pandya - 10/27/18 12:37> Forms: <Prem Pandya - 10/27/18 12:37> - Follow up Plan Follow up with: Clem Tovar MD [Staff Physician] - 1 week <Prem Pandya - 10/27/18 12:37> Disposition: Home, Self-Care <Prem Pandya - 10/27/18 12:37> Home Medications: Home Medications Medication Instructions Recorded Confirmed Type Acetaminophen [8 Hour] 650 mg PO BID 07/01/17 10/16/18 History Calcium Carbonate [Calcium] 2,000 mg PO BID 07/01/17 10/19/18 History Etodolac [Etodolac 500mg Tab] 500 mg PO BID 07/01/17 10/16/18 History Insulin Detemir [Levemir 100 60 units SQ HS 07/01/17 10/19/18 History units/mL 10mL vial] Insulin Lispro [HumaLOG 100 0 units SQ ACHS 07/01/17 10/17/18 History units/mL 3mL vial (SSI)] Levothyroxine Sodium 274 mcg PO DAILY 07/01/17 10/16/18 History [Levothyroxine 137mcg (0.137mg) Tab] diphenhydrAMINE HCl [Benadryl 25mg 1 - 2 cap PO HSP PRN 07/01/17 10/16/18 History Capsule] hydroCHLOROthiazide [HCTZ 25mg 25 mg PO DAILY 07/01/17 10/16/18 History tab] Potassium 99 mg PO HS 08/29/18 04/20/19 History Warfarin Sodium 7.5 mg PO DAILY 02/27/18 10/16/18 History Albuterol Sulfate [Proair Hfa 2 puffs IH Q4HP PRN 10/16/18 10/16/18 History 90mcg/puff Inh] Azithromycin [AzaSite 1% Ophth 1 drop OP BID 10/16/18 10/16/18 History Soln] Fluticasone Propionate [Flonase 1 spr NS DAILY 10/16/18 10/17/18 History 50mcg nasal spray 16gm] Nebivolol HCl [Bystolic] 2.5 mg PO HS 10/16/18 10/19/18 History diazePAM [Valium] 2 mg PO BIDP PRN 10/16/18 10/19/18 History Lisinopril [Lisinopril 40mg Tablet] 40 mg PO DAILY 10/17/18 10/17/18 History <Prem Pandya - 10/27/18 12:37> Prescriptions/Medication Reconciliation: Continued Insulin Detemir [Levemir 100 units/mL 10mL vial] 60 units SQ HS Levothyroxine Sodium [Levothyroxine 137mcg (0.137mg) Tab] 274 mcg PO DAILY Acetaminophen [8 Hour] 650 mg PO BID hydroCHLOROthiazide [HCTZ 25mg tab] 25 mg PO DAILY Etodolac [Etodolac 500mg Tab] 500 mg PO BID diphenhydrAMINE HCl [Benadryl 25mg Capsule] 1 - 2 cap PO HSP PRN PRN Reason: Sleep Calcium Carbonate [Calcium] 2,000 mg PO BID Azithromycin [AzaSite 1% Ophth Soln] 1 drop OP BID Fluticasone Propionate [Flonase 50mcg nasal spray 16gm] 1 spr NS DAILY Nebivolol HCl [Bystolic] 2.5 mg PO HS diazePAM [Valium] 2 mg PO BIDP PRN PRN Reason: Anxiety Insulin Lispro [HumaLOG 100 units/mL 3mL vial (SSI)] 0 units SQ ACHS Warfarin Sodium 7.5 mg PO DAILY Potassium 99 mg PO HS Albuterol Sulfate [Proair Hfa 90mcg/puff Inh] 2 puffs IH Q4HP PRN PRN Reason: Shortness Of Breath Or Wheezing Lisinopril [Lisinopril 40mg Tablet] 40 mg PO DAILY <Prem Pandya - 10/27/18 12:37> - Additional Information Additional Information: Patient seen and examined. Concur with plan for discharge as outlined above. <Prem Pandya - 10/27/18 12:37>
== END 2018-10-21 10:26 | disposition home or self-care (01) ==
LOC: ER 13:56 → ICU 17:41 → INTOOBSV 18:34 → ICU 18:35 → 2ND 10-17 18:07
PROVIDERS: ADMIT Family Medicine; ATTEND Family Medicine
DX: R10.11 Right upper quadrant pain; E78.5 Hyperlipidemia, unspecified; E11.9 Type 2 diabetes mellitus without complications; Z91.048 Other nonmedicinal substance allergy status; C79.9 Secondary malignant neoplasm of unspecified site; K81.9 Cholecystitis, unspecified; Z88.2 Allergy status to sulfonamides; M79.89 Other specified soft tissue disorders; M54.5 Low back pain; Z88.8 Allergy status to other drugs, medicaments and biological substances; Z86.718 Personal history of other venous thrombosis and embolism; I10 Essential (primary) hypertension; Z89.512 Acquired absence of left leg below knee; G89.18 Other acute postprocedural pain; R11.0 Nausea; Z79.899 Other long term (current) drug therapy; K81.0 Acute cholecystitis; M47.816 Spondylosis without myelopathy or radiculopathy, lumbar region; Z79.4 Long term (current) use of insulin; Z79.01 Long term (current) use of anticoagulants; J45.909 Unspecified asthma, uncomplicated; Z86.711 Personal history of pulmonary embolism; C73 Malignant neoplasm of thyroid gland
CPT/HCPCS: 36415; 74177; 80053; 81001; 82962; 83690; 85007; 85014; 85018; 85025; 85610; 99284; G0378; J0595; J1335; J2405; J2710; Q9967

== ENCOUNTER → 2018-11-18 09:22 | Outpatient (POV) | payer BC, SELFPAY ==
[2018-11-18 09:37] VITALS: BP 145/70; PULSE 82; RESP 18; O2SAT 98; BMI 48.7
--- NOTE | 2018-11-18 09:45 | P.CONS_ITS ---
[facility] Pain Management SOAP Note Subjective:: Patient is a pleasant 57-year-old white male who presents today for follow-up after lumbar epidural steroid injection. Patient did not get as much relief from it as he has from injections in the past. Patient states most of his pain is focal in his back. Patient has no radiation. He rates his pain a 4 out of 10. This is with little to no activity. Patient and I discussed moving forward with a different type of injection. We will try medial branch blocks. He does have an MRI showing facet issues. Patient is continuing a home stretching program he is on anti-inflammatories. ROS General: no recent weight change, no fever, no sleep disturbances Respiratory: no cough, no shortness of air, no recurring pulmonary infections Cardiovascular/Peripheral Vascular: No chest pain, No palpitations, no edema, no shortness of breath. Gastrointestinal: no incontinence, normal bowel movements reported Genitourinary: no incontinence Musculoskeletal: Back pain Psychiatric: normal mood/ affect Neurological: [denies weakness in extremities], [denies balance issues] Objective:: Physical Exam General: Alert and oriented x3, no acute distress, pleasant and cooperative, [on room air] Lungs: Resps E/U, Symmetrical chest expansion, Eyes: PERRL Musculoskeletal: Flexion and extension of lumbar spine somewhat guarded secondary to pain, deep tendon reflexes normal, strength in upper and lower extremities [5/5], [abnormal gait noted] patient has positive facet loading lumbar spine bilaterally, positive Kemps test lumbar spine bilaterally Neurological: speech clear, direct support staff member equal, no gross sensory deficits Assessment:: Degenerative disc disease lumbar spine with lumbar radiculopathy and post laminectomy syndrome and lumbar spine and facet arthropathy Plan:: We will schedule medial branch block/facet joint injection L3-L4 L4-L5 L5-S1 bilaterally. Patient is on Coumadin however he does have permission to come off of it for procedures. Patient may be a rhizotomy candidate. I will follow-up with the patient after his injection reassess his symptoms at that time. Dr. Smiley has reviewed this note and agrees with this plan of care. This note was dictated using voice recognition software and may contain errors or omissions
== END ==
PROVIDERS: PCP Family Medicine; Visit Provider Clinical Nurse Specialist Family Health
DX: M51.16 Intervertebral disc disorders with radiculopathy, lumbar region (principal); M96.1 Postlaminectomy syndrome, not elsewhere classified; M54.06 Panniculitis affecting regions of neck and back, lumbar region
CPT/HCPCS: 99212

== ENCOUNTER → 2018-12-23 13:26 | Outpatient (POV) | payer BC, SELFPAY ==
[2018-12-23 13:44] VITALS: BP 149/68; PULSE 98; RESP 18; O2SAT 98; BMI 47.5
--- NOTE | 2018-12-23 14:00 | HMH.PAINSOAP ---
[facility] Pain Management SOAP Note Subjective:: Patient is a pleasant 58-year-old white male who presents today for follow-up after medial branch block at L3-L4 L4-L5 L5-S1. Patient is doing extremely well rating his pain a 3 out of 10. Patient is 80% better. Patient would like to repeat this to determine if he is a radiofrequency ablation candidate. Patient is on Coumadin however he has permission to come off prior to procedures. ROS General: no recent weight change, no fever, no sleep disturbances Respiratory: no cough, no shortness of air, no recurring pulmonary infections Cardiovascular/Peripheral Vascular: No chest pain, No palpitations, no edema, no shortness of breath. Gastrointestinal: no incontinence, normal bowel movements reported Genitourinary: no incontinence Musculoskeletal: Back pain Psychiatric: normal mood/ affect Neurological: [denies weakness in extremities], [denies balance issues] Objective:: Physical Exam General: Alert and oriented x3, no acute distress, pleasant and cooperative, [on room air] Lungs: Resps E/U, Symmetrical chest expansion, Eyes: PERRL Musculoskeletal: Flexion and extension of lumbar spine somewhat guarded secondary to pain, deep tendon reflexes normal, strength in upper and lower extremities [5/5], [abnormal gait noted] positive facet loading lumbar spine bilaterally, positive Kemps test bilaterally Neurological: speech clear, chief ophthalmic technician equal, no gross sensory deficits Assessment:: Degenerative disc disease lumbar spine with post laminectomy syndrome of lumbar spine with lumbar facet arthropathy Plan:: We will schedule repeat L3-L4 L4-5 L5-S1 bilateral medial branch/facet joint injection. Patient is instructed to call the office if he has any issues prior to his next appointment. Patient is continuing a home stretching program and continuing his anti-inflammatories. Dr. Smiley has reviewed this note and agrees with this plan of care. This note was dictated using voice recognition software and may contain errors or omissions
== END ==
PROVIDERS: PCP Family Medicine; Visit Provider Clinical Nurse Specialist Family Health
DX: M51.36 Other intervertebral disc degeneration, lumbar region (principal); M96.1 Postlaminectomy syndrome, not elsewhere classified; M54.06 Panniculitis affecting regions of neck and back, lumbar region
CPT/HCPCS: 99212

== ENCOUNTER → 2019-02-03 10:42 | Outpatient (POV) | payer BC, SELFPAY ==
[2019-02-03 11:01] VITALS: BP 135/83; PULSE 87; RESP 18; O2SAT 98; BMI 48.7
--- NOTE | 2019-02-03 12:46 | HMH.PAINSOAP ---
[facility] Pain Management SOAP Note Subjective:: Patient is a pleasant 58-year-old white male who presents today for follow-up after denial for second round of medial branch blocks. Patient's insurance denied the medial branch blocks stating that because we utilize steroid that he cannot have another injection for 6 months. We will try to get approval for a medial branch block without steroid for diagnostic purposes only I do believe he would be a good candidate for a radiofrequency ablation. He rates his pain a 5 out of 10 mostly in his low back rotation makes it worse. He is on Coumadin however he has permission to come off prior to his procedures. He is done extremely well with his last medial branch block where he got 80% relief for over a month. He is tried and failed other therapies including epidural injections, occasions, anti-inflammatories, physical therapy. He is continuing a home stretching program. ROS General: no recent weight change, no fever, no sleep disturbances Respiratory: no cough, no shortness of air, no recurring pulmonary infections Cardiovascular/Peripheral Vascular: No chest pain, No palpitations, no edema, no shortness of breath. Gastrointestinal: no incontinence, normal bowel movements reported Genitourinary: no incontinence Musculoskeletal: Back pain Psychiatric: normal mood/ affect Neurological: [denies weakness in extremities], [denies balance issues] Objective:: Physical Exam General: Alert and oriented x3, no acute distress, pleasant and cooperative, [on room air] Lungs: Resps E/U, Symmetrical chest expansion, Eyes: PERRL Musculoskeletal: Flexion and extension of lumbar spine somewhat guarded secondary to pain, deep tendon reflexes normal, strength in upper and lower extremities [5/5], abnormal gait noted, positive Kemps test and facet loading lumbar spine bilaterally Neurological: speech clear, salon/spa manager equal, no gross sensory deficits Assessment:: Facet arthropathy, spondylosis lumbar spine Plan:: We will schedule an L3-L4 L4-L5 L5-S1 bilateral medial branch block for diagnostic purposes only with no steroid. I will follow-up with patient after this reassess his symptoms if he is doing well we will move forward with radiofrequency ablation. Dr. Smiley has reviewed this note and agrees with this plan of care. This note was dictated using voice recognition software and may contain errors or omissions Pain Management Hx Components *Have you ever received a pneumonia vaccine?: Yes *Have you received a flu vaccine this season?: Yes - *Social History *Occupational Status:: other *Travel in the last 8 weeks: None
--- NOTE | 2019-02-03 12:49 | P.CONS_ITS ---
[facility] Pain Management SOAP Note Subjective:: Patient is a pleasant 58-year-old white male who presents today for follow-up after denial for second round of medial branch blocks. Patient's insurance denied the medial branch blocks stating that because we utilize steroid that he cannot have another injection for 6 months. We will try to get approval for a medial branch block without steroid for diagnostic purposes only I do believe he would be a good candidate for a radiofrequency ablation. He rates his pain a 5 out of 10 mostly in his low back rotation makes it worse. He is on Coumadin however he has permission to come off prior to his procedures. He is done extremely well with his last medial branch block where he got 80% relief for over a month. He is tried and failed other therapies including epidural injections, occasions, anti-inflammatories, physical therapy. He is continuing a home stretching program. ROS General: no recent weight change, no fever, no sleep disturbances Respiratory: no cough, no shortness of air, no recurring pulmonary infections Cardiovascular/Peripheral Vascular: No chest pain, No palpitations, no edema, no shortness of breath. Gastrointestinal: no incontinence, normal bowel movements reported Genitourinary: no incontinence Musculoskeletal: Back pain Psychiatric: normal mood/ affect Neurological: [denies weakness in extremities], [denies balance issues] Objective:: Physical Exam General: Alert and oriented x3, no acute distress, pleasant and cooperative, [on room air] Lungs: Resps E/U, Symmetrical chest expansion, Eyes: PERRL Musculoskeletal: Flexion and extension of lumbar spine somewhat guarded secondary to pain, deep tendon reflexes normal, strength in upper and lower extremities [5/5], abnormal gait noted, positive Kemps test and facet loading lumbar spine bilaterally Neurological: speech clear, aviation electrician equal, no gross sensory deficits Assessment:: Facet arthropathy, spondylosis lumbar spine Plan:: We will schedule an L3-L4 L4-L5 L5-S1 bilateral medial branch block for diagnost ic purposes only with no steroid. I will follow-up with patient after this reassess his symptoms if he is doing well we will move forward with radiofrequency ablation. Dr. Smiley has reviewed this note and agrees with this plan of care. This note was dictated using voice recognition software and may contain errors or omissions Pain Management Hx Components *Have you ever received a pneumonia vaccine?: Yes *Have you received a flu vaccine this season?: Yes - *Social History *Occupational Status:: other *Travel in the last 8 weeks: None
== END ==
PROVIDERS: PCP Family Medicine; Visit Provider Clinical Nurse Specialist Family Health
DX: M12.9 Arthropathy, unspecified (principal); M47.896 Other spondylosis, lumbar region
CPT/HCPCS: 99212

== ENCOUNTER → 2019-03-12 07:04 | Outpatient (CLI) | payer BC, SELFPAY ==
[2019-03-12 07:58] LABS: INR 0.95 (0.9-1.1); Prothrombin Time 9.9 seconds (9.4-11.8)
== END ==
PROVIDERS: Visit Provider Anesthesiology
DX: Z51.81 Encounter for therapeutic drug level monitoring (principal); Z79.01 Long term (current) use of anticoagulants
CPT/HCPCS: 36415; 85610

== ENCOUNTER → 2019-03-24 13:48 | Outpatient (POV) | payer BC, SELFPAY ==
[2019-03-24 14:56] VITALS: BP 131/79; PULSE 95; RESP 18; O2SAT 98; BMI 48.7
--- NOTE | 2019-03-25 10:27 | HMH.PAINSOAP ---
[facility] Pain Management SOAP Note Subjective:: Patient is a very pleasant 58-year-old white male who we are treating for low back pain with lumbar spondylosis and lumbar facet arthropathy. Patient is following up after his second medial branch block. Patient had 90% relief of his symptoms. He had this for several weeks. Patient states the pain is slowly returning his rates his pain today 4 out of 10. He would like to move forward with RFA of his lumbar spine I do believe that would be beneficial to medial branch block/facet joint injections with extremely good relief. He is on anticoagulation therapy however he does have permission to come off of it. Patient has no active infections. Patient is continuing a home stretching program. Patient is on anti-inflammatories. ROS General: no recent weight change, no fever, no sleep disturbances Respiratory: no cough, no shortness of air, no recurring pulmonary infections Cardiovascular/Peripheral Vascular: No chest pain, No palpitations, no edema, no shortness of breath. Gastrointestinal: no incontinence, normal bowel movements reported Genitourinary: no incontinence Musculoskeletal: Back pain Psychiatric: normal mood/ affect, [denies depression], [denies anxiety] Neurological: [denies weakness in extremities], [denies balance issues] Objective:: Physical Exam General: Alert and oriented x3, no acute distress, pleasant and cooperative, [on room air] Lungs: Resps E/U, Symmetrical chest expansion Eyes: PERRL Musculoskeletal: Flexion and extension of lumbar spine somewhat guarded secondary to pain, deep tendon reflexes normal, strength in upper extremities [5/5], [abnormal gait noted] positive Kemps test bilateral lumbar spine positive facet loading lumbar spine Neurological: speech clear, mass spectrometry manager equal, no gross sensory deficits Assessment:: Degenerative disc disease lumbar spine with lumbar facet arthropathy and spondylosis Plan:: We will move forward with an RFA of the L3-L4 L4-L5 L5-S1 levels. We will start with the right side and in 2 weeks to the left side of the patient back after his procedure and reassess his symptoms at that time he is been instructed to call the office if he has any issues prior to his next appointment. Dr. Smiley has reviewed this note and agrees with this plan of care. This note was dictated using voice recognition software and may contain errors or omissions [facility] History I have reviewed the patient's past medical history: Yes Medical History: Reports:: Cancer, Deep Vein Thrombosis, Diabetes Mellitus Type 2, Hyperlipidemia, Hypertension, Pulmonary Embolism Denies:: Diabetes Mellitus Type 1, MRSA, Seizures *Have you ever received a pneumonia vaccine?: Yes *Have you received a flu vaccine this season?: Yes Other Medical History: Reports: Thyroid Disease, Other. Denies: Blood Transfusion Reaction Laterality Cases: Left: Other, Bilateral: Tonsillectomy Other Surgeries: Yes: Cholecystectomy, Thyroidectomy, Other Amputation: Yes (left bka) Fractures: No - *Social History Smoking Status: Former smoker Alcohol Intake: never Alcohol Intake Frequency:: 0-2 drinks per day *Occupational Status:: other Housing: house Household Members: spouse *Travel in the last 8 weeks: None Family Hx:: No significant family history, Adopted
--- NOTE | 2019-03-25 10:36 | P.CONS_ITS ---
[facility] Pain Management SOAP Note Subjective:: Patient is a very pleasant 58-year-old white male who we are treating for low back pain with lumbar spondylosis and lumbar facet arthropathy. Patient is following up after his second medial branch block. Patient had 90% relief of his symptoms. He had this for several weeks. Patient states the pain is slowly returning his rates his pain today 4 out of 10. He would like to move forward with RFA of his lumbar spine I do believe that would be beneficial to medial branch block/facet joint injections with extremely good relief. He is on anticoagulation therapy however he does have permission to come off of it. Patient has no active infections. Patient is continuing a home stretching program. Patient is on anti-inflammatories. ROS General: no recent weight change, no fever, no sleep disturbances Respiratory: no cough, no shortness of air, no recurring pulmonary infections Cardiovascular/Peripheral Vascular: No chest pain, No palpitations, no edema, no shortness of breath. Gastrointestinal: no incontinence, normal bowel movements reported Genitourinary: no incontinence Musculoskeletal: Back pain Psychiatric: normal mood/ affect, [denies depression], [denies anxiety] Neurological: [denies weakness in extremities], [denies balance issues] Objective:: Physical Exam General: Alert and oriented x3, no acute distress, pleasant and cooperative, [on room air] Lungs: Resps E/U, Symmetrical chest expansion Eyes: PERRL Musculoskeletal: Flexion and extension of lumbar spine somewhat guarded secondary to pain, deep tendon reflexes normal, strength in upper extremities [5/5], [abnormal gait noted] positive Kemps test bilateral lumbar spine positive facet loading lumbar spine Neurological: speech clear, operator helper equal, no gross sensory deficits Assessment:: Degenerative disc disease lumbar spine with lumbar facet arthropathy and spondylosis Plan:: We will move forward with an RFA of the L3-L4 L4-L5 L5-S1 levels. We will start with the right side and in 2 weeks to the left side of the patient back after his procedure and reassess his symptoms at that time he is been instructed to call the office if he has any issues prior to his next appointment. Dr. Smiley has reviewed this note and agrees with this plan of care. This note was dictated using voice recognition software and may contain errors or omissions [facility] History I have reviewed the patient's past medical history: Yes Medical History: Reports:: Cancer, Deep Vein Thrombosis, Diabetes Mellitus Type 2, Hyperlipidemia, Hypertension, Pulmonary Embolism Denies:: Diabetes Mellitus Type 1, MRSA, Seizures *Have you ever received a pneumonia vaccine?: Yes *Have you received a flu vaccine this season?: Yes Other Medical History: Reports: Thyroid Disease, Other. Denies: Blood Transfusion Reaction Laterality Cases: Left: Other, Bilateral: Tonsillectomy Other Surgeries: Yes: Cholecystectomy, Thyroidectomy, Other Amputation: Yes (left bka) Fractures: No - *Social History Smoking Status: Former smoker Alcohol Intake: never Alcohol Intake Frequency:: 0-2 drinks per day *Occupational Status:: other Housing: house Household Members: spouse *Travel in the last 8 weeks: None Family Hx:: No significant family history, Adopted
== END ==
PROVIDERS: PCP Family Medicine; Visit Provider Clinical Nurse Specialist Family Health
DX: M51.36 Other intervertebral disc degeneration, lumbar region (principal); M54.06 Panniculitis affecting regions of neck and back, lumbar region; M47.816 Spondylosis without myelopathy or radiculopathy, lumbar region
CPT/HCPCS: 99212

== ENCOUNTER → 2019-05-05 12:16 | Outpatient (POV) | payer BC, SELFPAY ==
--- NOTE | 2019-05-05 13:02 | HMH.PAINSOAP ---
[facility] Pain Management SOAP Note Subjective:: Patient is a pleasant 58-year-old white male who presents today for follow-up after right sided RFA. Patient is doing extremely well with 0 pain on the right side. At this point his only pain is on the left side. Patient rates that pain a 4 out of 10. Patient would like to start treating the left side of his lumbar spine. Patient is done well with medial branch blocks and facet rhizotomies. Patient recently diagnosed with a return of thyroid cancer and new tumor in his jaw. He is starting chemo. Patient received up to 80% relief with medial branch blocks. He is interested in moving forward with RFA on the left side. Patient does have permission to come off of his anticoagulation therapy for interventional therapies. ROS General: no recent weight change, no fever, no sleep disturbances Respiratory: no cough, no shortness of air, no recurring pulmonary infections Cardiovascular/Peripheral Vascular: No chest pain, No palpitations, no edema, no shortness of breath. Gastrointestinal: no new onset incontinence, normal bowel movements reported Genitourinary: no new onset incontinence Musculoskeletal:back Pain Psychiatric: normal mood/ affect Neurological: [denies new onset weakness in extremities], [denies new onset balance issues] Objective:: Physical Exam General: Alert and oriented x3, no acute distress, pleasant and cooperative, [on room air] Lungs: Resps E/U, Symmetrical chest expansion, Eyes: PERRL Musculoskeletal: Flexion and extension of lumbar spine somewhat guarded secondary to pain, deep tendon reflexes normal, strength in upper and lower extremities [5/5], [abnormal gait noted] positive Kemps test on the left side Neurological: speech clear, supplies packer equal, no gross sensory deficits Assessment:: Degenerative disc disease lumbar spine with lumbar spondylosis and facet arthropathy Plan:: We will plan a L4-L5 L5-S1 left-sided RFA given the efficacy of the facet joint injections in the RFA on the right side. Follow-up with the patient after this reassess his symptoms at the time he is been instructed to call the office if he has any issues prior to his next appointment. Dr. Smiley has reviewed this note and agrees with this plan of care. This note was dictated using voice recognition software and may contain errors or omissions [facility] History I have reviewed the patient's past medical history: Yes Medical History: Reports:: Cancer (thyroid cancer), Deep Vein Thrombosis, Diabetes Mellitus Type 2, Hyperlipidemia, Hypertension, Pulmonary Embolism Denies:: Diabetes Mellitus Type 1, MRSA, Seizures *Have you ever received a pneumonia vaccine?: Yes *Have you received a flu vaccine this season?: Yes Other Medical History: Reports: Anemia, Arthritis, Thyroid Disease, Other. Denies: Blood Transfusion Reaction Laterality Cases: Left: Other, Bilateral: Tonsillectomy Other Surgeries: Yes: Cancer Surgery, Cholecystectomy, Thyroidectomy, Other Amputation: Yes (left bka) Fractures: No - *Social History Smoking Status: Former smoker Alcohol Intake: never Alcohol Intake Frequency:: 0-2 drinks per day *Occupational Status:: retired, disabled Housing: house Household Members: spouse *Travel in the last 8 weeks: None Family Hx:: No significant family history, Adopted
--- NOTE | 2019-05-05 13:05 | P.CONS_ITS ---
[facility] Pain Management SOAP Note Subjective:: Patient is a pleasant 58-year-old white male who presents today for follow-up after right sided RFA. Patient is doing extremely well with 0 pain on the right side. At this point his only pain is on the left side. Patient rates that pain a 4 out of 10. Patient would like to start treating the left side of his lumbar spine. Patient is done well with medial branch blocks and facet rhizotomies. Patient recently diagnosed with a return of thyroid cancer and new tumor in his jaw. He is starting chemo. Patient received up to 80% relief with medial branch blocks. He is interested in moving forward with RFA on the left side. Patient does have permission to come off of his anticoagulation therapy for interventional therapies. ROS General: no recent weight change, no fever, no sleep disturbances Respiratory: no cough, no shortness of air, no recurring pulmonary infections Cardiovascular/Peripheral Vascular: No chest pain, No palpitations, no edema, no shortness of breath. Gastrointestinal: no new onset incontinence, normal bowel movements reported Genitourinary: no new onset incontinence Musculoskeletal:back Pain Psychiatric: normal mood/ affect Neurological: [denies new onset weakness in extremities], [denies new onset balance issues] Objective:: Physical Exam General: Alert and oriented x3, no acute distress, pleasant and cooperative, [on room air] Lungs: Resps E/U, Symmetrical chest expansion, Eyes: PERRL Musculoskeletal: Flexion and extension of lumbar spine somewhat guarded secondary to pain, deep tendon reflexes normal, strength in upper and lower extremities [5/5], [abnormal gait noted] positive Kemps test on the left side Neurological: speech clear, b2b outside sales representative equal, no gross sensory deficits Assessment:: Degenerative disc disease lumbar spine with lumbar spondylosis and facet arthropathy Plan:: We will plan a L4-L5 L5-S1 left-sided RFA given the efficacy of the facet joint injections in the RFA on the right side. Follow-up with the patient after this reassess his symptoms at the time he is been instructed to call the office if he has any issues prior to his next appointment. Dr. Smiley has reviewed this note and agrees with this plan of care. This note was dictated using voice recognition software and may contain errors or omissions [facility] History I have reviewed the patient's past medical history: Yes Medical History: Reports:: Cancer (thyroid cancer), Deep Vein Thrombosis, Diabetes Mellitus Type 2, Hyperlipidemia, Hypertension, Pulmonary Embolism Denies:: Diabetes Mellitus Type 1, MRSA, Seizures *Have you ever received a pneumonia vaccine?: Yes *Have you received a flu vaccine this season?: Yes Other Medical History: Reports: Anemia, Arthritis, Thyroid Disease, Other. Denies: Blood Transfusion Reaction Laterality Cases: Left: Other, Bilateral: Tonsillectomy Other Surgeries: Yes: Cancer Surgery, Cholecystectomy, Thyroidectomy, Other Amputation: Yes (left bka) Fractures: No - *Social History Smoking Status: Former smoker Alcohol Intake: never Alcohol Intake Frequency:: 0-2 drinks per day *Occupational Status:: retired, disabled Housing: house Household Members: spouse *Travel in the last 8 weeks: None Family Hx:: No significant family history, Adopted
[2019-05-05 13:11] VITALS: BP 142/82; PULSE 82; RESP 18; O2SAT 98; BMI 48.7
== END ==
PROVIDERS: PCP Family Medicine; Visit Provider Clinical Nurse Specialist Family Health
DX: M51.36 Other intervertebral disc degeneration, lumbar region (principal); M47.816 Spondylosis without myelopathy or radiculopathy, lumbar region; M54.06 Panniculitis affecting regions of neck and back, lumbar region
CPT/HCPCS: 99212

== ENCOUNTER → 2019-06-03 08:12 | Outpatient (POV) | payer BC, SELFPAY ==
[2019-06-03 09:00] VITALS: BP 149/82; PULSE 84; RESP 18; O2SAT 98; BMI 48.4
--- NOTE | 2019-06-03 14:36 | HMH.PAINSOAP ---
[facility] Pain Management SOAP Note Subjective:: Patient is a pleasant 58-year-old white male who presents today for follow-up. He is being treated for low back pain with lumbar radicular symptoms. Also being treated for lumbar spondylosis and facet arthropathy of lumbar spine. Patient recently underwent an RFA of L3-L4 L4-L5 and L5-S1. Patient says that he got approximately 90% relief following the RFA. He rates his pain 1 out of 10 today. Patient says that he is doing well, overall. He does say that he has increased low back pain when the weather changes or if it is raining outside. Patient does continue with anti-inflammatories and a home stretching program. Patient does say that oral anti-inflammatories do tend to cause GI upset for him even when taken with Pepcid. He is interested in topical anti-inflammatories to see if he get relief. Review of Systems General: No recent weight changes, no fever, no sleep disturbances Respiratory: No cough, no shortness of air, no recurring pulmonary infections Cardiovascular/peripheral vascular: No chest pain, no palpitations, no edema, no shortness of breath Gastrointestinal: No new onset incontinence, normal bowel movements reported Genitourinary: No new onset incontinence Musculoskeletal: Low back pain Psychiatric: Normal mood/affect Neurological: [Denies weakness in extremities], [denies balance issues] Objective:: Physical exam General: Alert and oriented x3, no acute distress, pleasant and cooperative, [on room air] Lungs: Respirations even and unlabored, symmetrical chest expansion Eyes: PERRL Musculoskeletal: Flexion and extension of lumbar spine somewhat guarded secondary to pain, deep tendon reflexes normal, strength in upper and lower extremities [5/5], [abnormal gait noted], positive Kemps test Neurological: Speech clear, confectionery maker equal, no gross sensory deficit Assessment:: Degenerative disc disease lumbar spine with lumbar spondylosis, facet arthropathy lumbar spine Plan:: Overall, the patient is doing well following his raphae. We will order the patient diclofenac gel 1% 4 g topical 4 times daily. Patient's not been able to tolerate oral anti-inflammatories. Will continue with a home stretching program. We will see the patient back in 1 month to reassess his symptoms. He has been instructed to contact the clinic if he has any concerns before his next appointment. Dr. Smiley has reviewed this note and agrees with this plan of care. This note was dictated using voice recognition software and make contain errors or omissions. [facility] History I have reviewed the patient's past medical history: Yes Medical History: Reports:: Cancer (thyroid cancer), Deep Vein Thrombosis, Diabetes Mellitus Type 2, Hyperlipidemia, Hypertension, Pulmonary Embolism Denies:: Diabetes Mellitus Type 1, MRSA, Seizures *Have you ever received a pneumonia vaccine?: Yes *Have you received a flu vaccine this season?: Yes Other Medical History: Reports: Anemia, Arthritis, Thyroid Disease, Other. Denies: Blood Transfusion Reaction Laterality Cases: Left: Other, Bilateral: Tonsillectomy Other Surgeries: Yes: Cancer Surgery, Cholecystectomy, Thyroidectomy, Other Amputation: Yes (left bka) Fractures: No - *Social History Smoking Status: Former smoker Alcohol Intake: never Alcohol Intake Frequency:: 0-2 drinks per day *Occupational Status:: other Housing: house Household Members: spouse *Travel in the last 8 weeks: None Family Hx:: No significant family history, Adopted
--- NOTE | 2019-06-03 14:39 | P.CONS_ITS ---
[facility] Pain Management SOAP Note Subjective:: Patient is a pleasant 58-year-old white male who presents today for follow-up. He is being treated for low back pain with lumbar radicular symptoms. Also being treated for lumbar spondylosis and facet arthropathy of lumbar spine. Patient recently underwent an RFA of L3-L4 L4-L5 and L5-S1. Patient says that he got approximately 90% relief following the RFA. He rates his pain 1 out of 10 today. Patient says that he is doing well, overall. He does say that he has increased low back pain when the weather changes or if it is raining outside. Patient does continue with anti-inflammatories and a home stretching program. Patient does say that oral anti-inflammatories do tend to cause GI upset for him even when taken with Pepcid. He is interested in topical anti-inflammatories to see if he get relief. Review of Systems General: No recent weight changes, no fever, no sleep disturbances Respiratory: No cough, no shortness of air, no recurring pulmonary infections Cardiovascular/peripheral vascular: No chest pain, no palpitations, no edema, no shortness of breath Gastrointestinal: No new onset incontinence, normal bowel movements reported Genitourinary: No new onset incontinence Musculoskeletal: Low back pain Psychiatric: Normal mood/affect Neurological: [Denies weakness in extremities], [denies balance issues] Objective:: Physical exam General: Alert and oriented x3, no acute distress, pleasant and cooperative, [on room air] Lungs: Respirations even and unlabored, symmetrical chest expansion Eyes: PERRL Musculoskeletal: Flexion and extension of lumbar spine somewhat guarded secondary to pain, deep tendon reflexes normal, strength in upper and lower extremities [5/5], [abnormal gait noted], positive Kemps test Neurological: Speech clear, nuclear pharmacist equal, no gross sensory deficit Assessment:: Degenerative disc disease lumbar spine with lumbar spondylosis, facet arthropathy lumbar spine Plan:: Overall, the patient is doing well following his raphae. We will order the patient diclofenac gel 1% 4 g topical 4 times daily. Patient's not been able to tolerate oral anti-inflammatories. Will continue with a home stretching program. We will see the patient back in 1 month to reassess his symptoms. He has been instructed to contact the clinic if he has any concerns before his next appointment. Dr. Smiley has reviewed this note and agrees with this plan of care. This note was dictated using voice recognition software and make contain errors or omissions. [facility] History I have reviewed the patient's past medical history: Yes Medical History: Reports:: Cancer (thyroid cancer), Deep Vein Thrombosis, Diabetes Mellitus Type 2, Hyperlipidemia, Hypertension, Pulmonary Embolism Denies:: Diabetes Mellitus Type 1, MRSA, Seizures *Have you ever received a pneumonia vaccine?: Yes *Have you received a flu vaccine this season?: Yes Other Medical History: Reports: Anemia, Arthritis, Thyroid Disease, Other. Denies: Blood Transfusion Reaction Laterality Cases: Left: Other, Bilateral: Tonsillectomy Other Surgeries: Yes: Cancer Surgery, Cholecystectomy, Thyroidectomy, Other Amputation: Yes (left bka) Fractures: No - *Social History Smoking Status: Former smoker Alcohol Intake: never Alcohol Intake Frequency:: 0-2 drinks per day *Occupational Status:: other Housing: house Household Members: spouse *Travel in the last 8 weeks: None Family Hx:: No significant family history, Adopted
== END ==
PROVIDERS: PCP Family Medicine; Visit Provider Clinical Nurse Specialist Family Health
DX: M51.36 Other intervertebral disc degeneration, lumbar region (principal); M47.816 Spondylosis without myelopathy or radiculopathy, lumbar region; M54.06 Panniculitis affecting regions of neck and back, lumbar region
CPT/HCPCS: 99212

== ENCOUNTER → 2019-08-05 08:48 | Outpatient (POV) | payer BC, MEDICARE, SELFPAY ==
[2019-08-05 09:06] VITALS: BP 141/50; PULSE 76; RESP 18; O2SAT 99; BMI 47.5
--- NOTE | 2019-08-05 09:37 | P.CONS_ITS ---
[facility] Pain Management SOAP Note Subjective:: Patient is a pleasant 58-year-old white male who presents today for follow-up after his RFA 2 months ago. Patient doing well rating his pain a 1 out of 10. Patient is having little to no back pain. Patient is going through chemotherapy along with jaw reconstruction therapy. ROS General: no recent weight change, no fever, no sleep disturbances Respiratory: no cough, no shortness of air, no recurring pulmonary infections Cardiovascular/Peripheral Vascular: No chest pain, No palpitations, no edema, no shortness of breath. Gastrointestinal: no new onset incontinence, normal bowel movements reported Genitourinary: no new onset incontinence Musculoskeletal: Back pain Psychiatric: normal mood/ affect Neurological: [denies new onset weakness in extremities], [denies new onset balance issues] Objective:: Physical Exam General: Alert and oriented x3, no acute distress, pleasant and cooperative, [on room air] Lungs: Resps E/U, Symmetrical chest expansion, Eyes: PERRL Musculoskeletal: Flexion and extension of lumbar spine somewhat guarded secondary to pain, deep tendon reflexes normal, strength in upper and lower extremities [5/5], [abnormal gait noted] Neurological: speech clear, depositing machine operator equal, no gross sensory deficits Assessment:: Degenerative disc disease lumbar spine with lumbar facet arthropathy and spondylosis. Plan:: We will follow-up with the patient in 4 months reassess his symptoms at that time he is been instructed to call the office if he has any issues prior to his next appointment. Dr. Smiley has reviewed this note and agrees with this plan of care. This note was dictated using voice recognition software and may contain errors or omissions [facility] History I have reviewed the patient's past medical history: Yes Medical History: Reports:: Cancer (thyroid cancer), Deep Vein Thrombosis, Diabetes Mellitus Type 2, Hyperlipidemia, Hypertension, Pulmonary Embolism Denies:: Diabetes Mellitus Type 1, MRSA, Seizures *Have you ever received a pneumonia vaccine?: Yes *Have you received a flu vaccine this season?: Yes Other Medical History: Reports: Anemia, Arthritis, Thyroid Disease, Other. Denies: Blood Transfusion Reaction Laterality Cases: Left: Other, Bilateral: Tonsillectomy Other Surgeries: Yes: Cancer Surgery, Cholecystectomy, Thyroidectomy, Other Amputation: Yes (left bka) Fractures: No - *Social History Smoking Status: Former smoker Tobacco Type: cigarettes Alcohol Intake: never Alcohol Intake Frequency:: 0-2 drinks per day *Occupational Status:: other Housing: house Household Members: spouse *Travel in the last 8 weeks: None Family Hx:: No significant family history, Adopted
== END ==
PROVIDERS: PCP Family Medicine; Visit Provider Clinical Nurse Specialist Family Health
DX: M51.36 Other intervertebral disc degeneration, lumbar region (principal); M54.06 Panniculitis affecting regions of neck and back, lumbar region; M47.816 Spondylosis without myelopathy or radiculopathy, lumbar region
CPT/HCPCS: 99212

== ENCOUNTER → 2019-09-30 10:47 | Outpatient (POV) | payer BC, SELFPAY ==
--- NOTE | 2019-09-30 11:36 | HMH.VVPMSO ---
[facility] Virtual Visit SOAP Consent for virtual visit:: With the recent concerns about the COVID-19, we are trying to minimize exposure to you by shifting to telehealth appointments whenever possible. It restricts me from seeing you in person, but the trade off is protecting you during this pandemic. Can you see and hear me okay, and do you consent to this option? If not, I would be happy to see if we can reschedule your appointment in the future, when feasible. Has patient consented to this virtual visit?: Yes Subjective:: This visit was performed via telemedicine. The patient has chosen to have telemedicine visit for his/her symptoms due to risk associated with COVID19 Patient is a pleasant 58-year-old white male who presents today via telemedicine for complaints of left hip pain. Patient is a stage IV cancer patient who recently underwent surgical intervention for a lesion noted to his right mandibular area. Patient says that he had a tumor that was progressively worsening and resistant to treatment. As a result, he did undergo surgical intervention. He currently has a 5 cm lesion noted to his left hip that was found approximately 5 years ago. Patient did undergo an MRI at [facility] of the lesion while hospitalized for facial surgery. He was told per the provider that the lesion had not gotten any larger. Patient is continuing to have severe left hip pain. Patient says that he has had injections with Dr. Salazar in the past and is gotten great relief. He would like to undergo another lumbar epidural steroid injection. Patient says he does understand that we are unable to perform any type of injections at this time. He would like to discuss possible oral medication management at this time. The patient does take ibuprofen. He says he is taking gabapentin in the past and it has given him little to no relief. He is also taken oxycodone in the past which has not given him any relief. Patient says that tramadol works best for his pain in the past. Review of Systems General: No recent weight changes, no fever, no sleep disturbances Respiratory: No cough, no shortness of air, no recurring pulmonary infections Cardiovascular/peripheral vascular: No chest pain, no palpitations, no edema, no shortness of breath Gastrointestinal: No new onset incontinence, normal bowel movements reported Genitourinary: No new onset incontinence Musculoskeletal: Left hip pain Psychiatric: Normal mood/affect Neurological: [Denies weakness in extremities], [denies balance issues] Objective:: Constitutional: Healthy appearing, well-developed, alert and oriented, no acute distress noted Psychiatric: Judgment and insight intact. Mood normal, affect appropriate Head: Normocephalic, atraumatic, extraocular movement intact Respiratory: Nonlabored, non-dyspneic Cardiovascular: No cyanosis, no clubbing, no edema observed Skin: Head and neck, no lesions or rashes noted. Bilateral upper extremities no lesions or rashes noted Gait: Limited Musculoskeletal: Full range of motion, positive straight leg raise Assessment:: Low back pain, left hip pain, degenerative disc disease lumbar spine with lumbar radiculopathy symptoms Plan:: Given the patient's description of symptoms, I do think the patient would benefit from a lumbar epidural steroid injection at L4-L5. He has had these in the past and is gotten approximately 85% relief for greater than 2 weeks. He does understand, however, we are not able to perform any type of injective therapy at this time secondary to restrictions associated with the pandemic. For now, we will start the patient on tramadol 50 mg 1 tablet p.o. twice daily. Patient has requested prednisone. He and I had a lengthy discussion concerning steroids. He does understand that he is currently immunocompromised and this does does increase him even more. He would still like to continue with prednisone. Patient is insulin
== END ==
PROVIDERS: Visit Provider Clinical Nurse Specialist Family Health
DX: M25.552 Pain in left hip (principal); M51.16 Intervertebral disc disorders with radiculopathy, lumbar region
CPT/HCPCS: 99212

== ENCOUNTER → 2019-10-13 10:50 | Outpatient (POV) | payer BC, SELFPAY ==
--- NOTE | 2019-10-13 11:03 | HMH.VVPMSO ---
[facility] Virtual Visit SOAP Consent for virtual visit:: With the recent concerns about the COVID-19, we are trying to minimize exposure to you by shifting to telehealth appointments whenever possible. It restricts me from seeing you in person, but the trade off is protecting you during this pandemic. Can you see and hear me okay, and do you consent to this option? If not, I would be happy to see if we can reschedule your appointment in the future, when feasible. Has patient consented to this virtual visit?: Yes Subjective:: Patient is a pleasant 58-year-old white male who presents today for a telemedicine visit. Patient currently has a complaint of left hip pain. He was given some tramadol and prednisone which was beneficial however he does believe an injection would be the most beneficial. Patient rates his pain today a 5 out of 10. He has no tenderness over the bursa. The most pain comes while walking. He does believe that due to him compensating he is having some low back pain as well. He is on Coumadin. ROS General: no recent weight change, no fever, no sleep disturbances Respiratory: no cough, no shortness of air, no recurring pulmonary infections Cardiovascular/Peripheral Vascular: No chest pain, No palpitations, no edema, no shortness of breath. Gastrointestinal: no new onset incontinence, normal bowel movements reported Genitourinary: no new onset incontinence Musculoskeletal: Left hip pain Psychiatric: normal mood/ affect Neurological: [denies new onset weakness in extremities], [denies new onset balance issues] Objective:: Physical exam: Constitutional: Healthy appearing, well-developed, alert, in no acute distress Psychiatric: Judgment and insight intact, Alert and oriented x4 Mood and affect: Mood normal, affect appropriate Head and face: Inspection: Normocephalic atraumatic, extraocular movement intact Respiratory: Breathing nonlabored, nondyspneic Cardiovascular: No cyanosis, clubbing, or edema observed Skin: Head and neck: Skin with no lesions or rash observed Gait: Able to walk without assistive device: Able to heel and toe walk Neurologic: Sensation grossly intact per patient Musculoskeletal: Decreased range of motion left hip Assessment:: Left hip pain, arthritis, degenerative disc disease lumbar spine lumbar radiculopathy Plan:: We will move forward with a left intra-articular hip injection for the patient. I will follow-up with him afterwards and reassess his symptoms at that time he may then need a back injection but at this time his hip is the worst pain he has. This encounter was performed as a telemedicine visit via secure 2 way video and audio to minimize risk and transmission of Covid-19. The patient and we understand the limitations of a telemedicine visit including inability to check reflexes, possibly missing subtle findings on physical exam. Alternative options were presented to the patient and the patient elected to proceed with the visit. We specifically discussed risk factors for Covid-19 including age, heart or lung disease, diabetes, immunosuppression and travel. We also discussed that NSAIDs may worsen Covid-19 infection symptoms and that they should not be used to treat Covid-19 symptoms. Patient was also informed that corticosteroids in any form oral or injectable will decrease immune response and may increase risk of Covid-[address] Smiley has reviewed this patient's chart and this note and agrees with plan of care. Patient has been instructed to call the office if they have any issues prior to the next appointment. This note was dictated using voice recognition software and may contain errors or omissions Time In:: 10:50 Time Out:: 11:10 [facility] History I have reviewed the patient's past medical history: Yes Medical History: Reports:: Cancer (stage 4 thyroid), Deep Vein Thrombosis, Diabetes Mellitus Type 2, Hyperlipidemia, Hypertension, Pulmonary Embolism Denies
== END ==
PROVIDERS: Visit Provider Clinical Nurse Specialist Family Health
DX: M25.552 Pain in left hip (principal); M51.16 Intervertebral disc disorders with radiculopathy, lumbar region
CPT/HCPCS: 99212

== ENCOUNTER 2019-10-17 10:06 | Day surgery (SDC) | payer BC, SELFPAY ==
[2019-10-17 10:27] VITALS: BP 161/93; PULSE 67; RESP 18; TEMP 36.9; O2SAT 94; BMI 104.7
[2019-10-17 10:32] LABS: POC Glucose,Bedside 63 (70-110)
[2019-10-17 10:54] VITALS: BP 135/85; BP 140/87; PULSE 85; RESP 18; O2SAT 99
--- NOTE | 2019-10-17 10:58 | HMH.PMPROC ---
- Procedure Date: 10/17/19 Time: 10:58 Anesthesiologist:: Cody Smiley MD Complications:: None Pre-procedure Diagnosis:: Left hip pain with degenerative osteoarthritis Post-procedure Diagnosis:: Same Indications for Procedure:: This patient is a pleasant 58-year-old white male who we are treating for left hip pain. He does have a sclerotic lesion which seems to be benign in the left hip joint. This is probably was causing a lot of his pain. He does not have any bursitis in that area. We will do a left hip intra-articular injection today to see if this well with his pain symptoms. Pain is worsened over the last few weeks. It is affecting activities of daily living. It is affecting his normal function. We will do a left hip intra-articular injection today to keep him out of the emergency room and off oral opioids. He does take tramadol which we have increased to 3 times a day. Procedure Details:: Left hip intra-articular injection Informed consent was obtained the risk and benefits of the procedure were explained to the patient. Patient was taken to the procedure room. The left hip was prepped using ChloraPrep. A 22-gauge spinal needle was inserted into the left hip joint. Needle placement was confirmed with dye. After this we injected 5 mL bupivacaine 0.25% Depo-Medrol 40 mg into the left hip joint. The patient tolerated the procedure well with no complications. Plan and Disposition:: We will follow-up with him in 2 weeks. Will reevaluate his symptoms at that time. We will also increase his tramadol to 50 mg 3 times a day. He will take 2 pills in the morning and 1 pill at night. If this affects his breathing or if he has any side effects he is to let us know.
[2019-10-17 11:11] VITALS: BP 143/92; PULSE 67; RESP 20; O2SAT 94
== END 2019-10-17 11:12 | disposition home or self-care (01) ==
LOC: SC.PAINP 10:07
PROVIDERS: Visit Provider Anesthesiology
DX: M16.12 Unilateral primary osteoarthritis, left hip (principal); E11.9 Type 2 diabetes mellitus without complications; I10 Essential (primary) hypertension; Z88.1 Allergy status to other antibiotic agents; Z88.2 Allergy status to sulfonamides; Z88.8 Allergy status to other drugs, medicaments and biological substances; Z79.01 Long term (current) use of anticoagulants; Z79.4 Long term (current) use of insulin; Z79.899 Other long term (current) drug therapy
CPT/HCPCS: 20610; 77002; 82962; J1040; Q9966

== ENCOUNTER → 2019-11-03 09:27 | Outpatient (POV) | payer BC, SELFPAY ==
--- NOTE | 2019-11-03 09:56 | HMH.VVPMSO ---
[facility] Virtual Visit SOAP Consent for virtual visit:: With the recent concerns about the COVID-19, we are trying to minimize exposure to you by shifting to telehealth appointments whenever possible. It restricts me from seeing you in person, but the trade off is protecting you during this pandemic. Can you see and hear me okay, and do you consent to this option? If not, I would be happy to see if we can reschedule your appointment in the future, when feasible. Has patient consented to this virtual visit?: Yes Subjective:: Patient is a pleasant 58-year-old white male who presents today for follow-up. Patient's hip is doing extremely well however he is having low back pain. Patient had an RFA 7 months ago and had 80% relief up until recently. He is now having more pain in his lower back he has difficulty with twisting. He had 2 appropriate medial branch blocks/facet joint injections prior to his RFA. He would like to move forward with another RFA of his lower lumbar spine. Given the efficacy of this in the past I do believe it would be beneficial. ROS General: no recent weight change, no fever, no sleep disturbances Respiratory: no cough, no shortness of air, no recurring pulmonary infections Cardiovascular/Peripheral Vascular: No chest pain, No palpitations, no edema, no shortness of breath. Gastrointestinal: no new onset incontinence, normal bowel movements reported Genitourinary: no new onset incontinence Musculoskeletal: Back pain Psychiatric: normal mood/ affect Neurological: [denies new onset weakness in extremities], [denies new onset balance issues] Objective:: Physical exam: Constitutional: Healthy appearing, well-developed, alert, in no acute distress Psychiatric: Judgment and insight intact, Alert and oriented x4 Mood and affect: Mood normal, affect appropriate Head and face: Inspection: Normocephalic atraumatic, extraocular movement intact Respiratory: Breathing nonlabored, nondyspneic Cardiovascular: No cyanosis, clubbing, or edema observed Skin: Head and neck: Skin with no lesions or rash observed Gait: Able to walk without assistive device: Able to heel and toe walk Neurologic: Sensation grossly intact per patient Musculoskeletal: Decreased range of motion lumbar spine. Difficulty with twisting motion lumbar spine Assessment:: Spondylosis, degenerative disc disease lumbar spine, facet joint arthropathy lumbar spine Plan:: We will move forward with an L4-L5 L5-S1 bilateral RFA. Patient is on Coumadin however he does have permission to come off prior to this. We will move forward with a bilateral RFA and do both sides due to the fact that he is on Coumadin. I will follow-up with him after this reassess his symptoms at that time he has been instructed to call the office if he has any issues prior to his next appointment. Dr. Smiley has reviewed this note and agrees with this plan of care. This note was dictated using voice recognition software and may contain errors or omissions Time In:: 09:25 Time Out:: 09:45 [facility] History I have reviewed the patient's past medical history: Yes Medical History: Reports:: Cancer (thyroid), Deep Vein Thrombosis, Diabetes Mellitus Type 1, Diabetes Mellitus Type 2, Hyperlipidemia, Hypertension, Pulmonary Embolism Denies:: MRSA, Seizures *Have you ever received a pneumonia vaccine?: Yes *Have you received a flu vaccine this season?: Yes Other Medical History: Reports: Anemia, Arthritis, Thyroid Disease, Other. Denies: Blood Transfusion Reaction Laterality Cases: Left: Other, Bilateral: Tonsillectomy Other Surgeries: Yes: Cancer Surgery, Cholecystectomy, Thyroidectomy, Other Amputation: Yes (left bka) Fractures: No - *Social History Smoking Status: Former smoker Tobacco Type: cigarettes Alcohol Intake: never Alcohol Intake Frequency:: 0-2 drinks per day *Occupational Status:: other Housing: house Household Members: spouse *Travel in the last 8 weeks: None Family Hx:: No sig
== END ==
PROVIDERS: Visit Provider Clinical Nurse Specialist Family Health
DX: M47.816 Spondylosis without myelopathy or radiculopathy, lumbar region (principal); M51.36 Other intervertebral disc degeneration, lumbar region; M54.06 Panniculitis affecting regions of neck and back, lumbar region
CPT/HCPCS: 99212

== ENCOUNTER 2019-11-21 08:15 | Day surgery (SDC) | payer BC, SELFPAY ==
[2019-11-21 08:41] VITALS: BP 133/66; PULSE 73; RESP 18; TEMP 36.6; O2SAT 97; BMI 47.5
[2019-11-21 08:42] LABS: Glucose,Fasting 137 mg/dl (74-100); INR 0.92 (0.9-1.1); Prothrombin Time 9.6 seconds (9.4-11.8)
[2019-11-21 10:14] VITALS: BP 135/85; PULSE 85; RESP 18
[2019-11-21 10:15] VITALS: BP 140/82; PULSE 88; RESP 18; O2SAT 99
--- NOTE | 2019-11-21 10:25 | P.PCN_ITS ---
- Procedure Date: 11/21/19 Time: 10:25 Anesthesiologist:: Cody Smiley MD Complications:: None Pre-procedure Diagnosis:: Degenerative disc disease of lumbar spine with lumbar spondylosis and facet arthropathy of lumbar spine Post-procedure Diagnosis:: Same Indications for Procedure:: This patient is a pleasant 58-year-old white male who we are treating for low back pain and facet arthropathy of lumbar spine. He is done well with previous medial branch blocks and RFA 7 months ago. He was 80 to 90% better up until recently. His pain is now starting to return. We will do repeat bilateral radiofrequency ablation of the facet joints/medial branches of L4-5 and L5-S1 bilaterally. He is on Coumadin. He has been off this for 7 days. His PT/INR is 0.96. Procedure Details:: Lumbar RFA informed consent was obtained and the risk and benefits of the procedure was explained to the patient. Patient was placed prone on the procedure table. The patient was prepped and draped in sterile fashion. C-arm fluoroscopy was used to view the lumbar spine. The skin and subcutaneous tissues were anesthetized using lidocaine. I placed 20-gauge RF needles into the facet joints of L4-5 and L5-S1 bilaterally. We underwent sensory stimulation. There is good sensory stimulation at 0.8 V. We underwent motor stimulation. There is no motor stimulation at 2 V. We then anesthetized these levels with lidocaine and Depo- Medrol. I used a total of 40 mg Depo-Medrol for both levels on each side. We used a total of 80 mg Depo-Medrol for both sides in both levels. I then burned bilateral L4-L5 and L5-S1 facet joint/medial branches at 80 ?C for 4 minutes. Patient tolerated the procedure well with no complication. Plan and Disposition:: We will follow-up with him in 2 weeks. Will reevaluate his symptoms at that time. He is still complaining of some left hip pain. We will evaluate his left hip pain. He did well with previous injections to his left hip.
[2019-11-21 10:36] LABS: POC Glucose,Bedside 74 (70-110)
[2019-11-21 10:37] VITALS: BP 162/78; PULSE 89; RESP 18; O2SAT 98
--- NOTE | 2019-11-21 10:39 | PC.NURSE ---
Pt said he wasn't feeling well and asked for blood sugar checked. FSBS 74. juice and PB crackers given. Verbalized feeling much better after snack. PT didn't eat breakfast this morning. Stable at discharge, no C/O.
== END 2019-11-21 10:41 | disposition home or self-care (01) ==
PROVIDERS: PCP Family Medicine; Visit Provider Anesthesiology
DX: M51.36 Other intervertebral disc degeneration, lumbar region (principal); M12.88 Other specific arthropathies, not elsewhere classified, other specified site; M47.816 Spondylosis without myelopathy or radiculopathy, lumbar region; Z79.01 Long term (current) use of anticoagulants; E11.9 Type 2 diabetes mellitus without complications; I10 Essential (primary) hypertension; E78.5 Hyperlipidemia, unspecified; J45.909 Unspecified asthma, uncomplicated; I26.99 Other pulmonary embolism without acute cor pulmonale; C73 Malignant neoplasm of thyroid gland
CPT/HCPCS: 36415; 64635; 64636; 82947; 82962; 85610; J1030

== ENCOUNTER → 2019-12-08 08:43 | Outpatient (POV) | payer BC, SELFPAY ==
[2019-12-08 08:54] VITALS: BP 126/78; PULSE 68; RESP 18; O2SAT 98; BMI 47.5
--- NOTE | 2019-12-08 09:11 | P.CONS_ITS ---
[facility] Pain Management SOAP Note Subjective:: Patient is Pleasant 58-year-old white male who we are treating for low back pain and facet arthropathy of the lumbar spine. He is following up after his recent RFA. Patient has about 70% relief. Patient's main complaint of pain today is his left hip rating it a 4 out of 10. Patient is interested in getting injections in his hip. He has had this in the past with good success. Patient has a left leg BKA and I believe that this along with his weight increases inflammation his left hip. ROS General: no recent weight change, no fever, no sleep disturbances Respiratory: no cough, no shortness of air, no recurring pulmonary infections Cardiovascular/Peripheral Vascular: No chest pain, No palpitations, no edema, no shortness of breath. Gastrointestinal: no new onset incontinence, normal bowel movements reported Genitourinary: no new onset incontinence Musculoskeletal: Back pain, left hip pain Psychiatric: normal mood/ affect Neurological: [denies new onset weakness in extremities], [denies new onset balance issues] Objective:: Physical Exam General: Alert and oriented x3, no acute distress, pleasant and cooperative, [on room air] Lungs: Resps E/U, Symmetrical chest expansion, Eyes: PERRL Musculoskeletal: Flexion and extension of lumbar spine somewhat guarded secondary to pain, strength in upper and lower extremities [5/5], [abnormal gait noted] below the knee amputation left leg Neurological: speech clear, director 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 I will follow-up with him after this. Patient overall doing well. He is been instructed to call the office if he has any issues prior to his next appointment. He used to take tramadol however he is weaned himself successfully off of it. Dr. Smiley has reviewed this note and agrees with this plan of care. This note was dictated using voice recognition software and may contain errors or omissions [facility] History I have reviewed the patient's past medical history: Yes Medical History: Reports:: Asthma, Cancer, Deep Vein Thrombosis, Diabetes Mellitus Type 1, Diabetes Mellitus Type 2, Hyperlipidemia, Hypertension, Pulmonary Embolism Denies:: MRSA, Seizures *Have you ever received a pneumonia vaccine?: Yes *Have you received a flu vaccine this season?: Yes Other Medical History: Reports: Anemia, Arthritis, Thyroid Disease, Other. Denies: Blood Transfusion Reaction Laterality Cases: Left: Other, Bilateral: Tonsillectomy Other Surgeries: Yes: Cancer Surgery, Cholecystectomy, Thyroidectomy, Other Amputation: Yes (left bka) Fractures: No - *Social History Smoking Status: Former smoker Tobacco Type: cigarettes Alcohol Intake: never Alcohol Intake Frequency:: 0-2 drinks per day *Occupational Status:: other Housing: house Household Members: spouse *Travel in the last 8 weeks: None Family Hx:: No significant family history, Adopted
== END ==
PROVIDERS: PCP Family Medicine; Visit Provider Clinical Nurse Specialist Family Health
DX: M51.36 Other intervertebral disc degeneration, lumbar region (principal); M47.816 Spondylosis without myelopathy or radiculopathy, lumbar region; M12.88 Other specific arthropathies, not elsewhere classified, other specified site; M16.12 Unilateral primary osteoarthritis, left hip
CPT/HCPCS: 99212

== ENCOUNTER → 2019-12-10 06:58 | Outpatient (CLI) | payer BC, SELFPAY ==
--- NOTE | 2019-12-10 06:59 | CA_ITS ---
APPROVED REPORT Sand Mixer Machine: Amber Burris RVT Study Quality: Fair Indications: HTN Risk Factors Hypertension Hyperlipidemia Obesity Diabetes Renal Artery Doppler Origin (R) 89.8/ cm/sec Proximal (R) 98.5/ cm/sec Mid (R) 135.9/ cm/sec Distal (R) 78.2/ cm/sec Renal Aorta Ratio (R) 1.56 Segmental A. (R) 83.1/18.6 cm/sec RI: 0.77 Segmental A. Sup (R) 72.7/26.3 cm/sec Segmental A. Mid (R) 83.1/18.6 cm/sec Segmental A. Inf (R) 41.8/9.8 cm/sec Origin (L) 151.5/ cm/sec Proximal (L) 192.6/ cm/sec Mid (L) 118.4/ cm/sec Distal (L) 86.7/ cm/sec Renal Aorta Ratio (L) 2.21 Segmental A. (L) 105.1/19.4 cm/sec RI: 0.81 Segmental A. Sup (L) 93.9/15.3 cm/sec Segmental A. Mid (L) 105.1/19.4 cm/sec Segmental A. Inf (L) 78.6/15.3 cm/sec Renal Measurements Kidney Size (R) 11.1x7.7 cm Cortical Thickness (R) 1.7 cm Kidney Size (L) 13.7x10.2 cm Cortical Thickness (L) 1.9 cm Conclusion Study suggests less than 60% stenosis of the left renal artery. Study suggests normal right renal artery. Electronically signed by : Paul Grace MD 12/10/2019 16:19:02
--- NOTE | 2019-12-10 06:59 | CA_ITS ---
APPROVED REPORT Exam: Pharmacologic Technologist: Joya Foley Ht: 6 ft 3 in Wt: 380 lbs BSA: 2.88 m2 HR: 67 bpm BP: 133/70 mmHg Indications: Shortness of Breath Medical History Medications: Amlodipine,,,,, Lisinopril,,,,, Levothyroxine,,,,, Furosemide (LASIX),,,,, Trazadone,,,,, Gabapentin,,,,, Atorvastatin,,,,, HCTZ,,,,, INSULIN,,,,, Calcium,,,,, ETODOLAC,,,,, Flucticasone,,,,, Stress Test Details Test: LEXISCAN HR Resting HR: 69 bpm Max Heart Rate (APMHR): 160 bpm Max HR Achieved: 85 bpm Target HR (85% APMHR): 136 bpm % of APMHR: 53 Recovery HR: 72 bpm BP Resting BP: 133.0/70.0 mmHg Max BP: 147.0/67.0 mmHg Recovery BP: 131.0/68.0 mmHg ECG Clinical Exercise duration: 04:04 min Highest Stage Achieved: Exercise capacity: 1.0 METs Stress ECG Conclusion Resting ECG: Normal sinus rhythm, first degree AV block Symptoms: Shortness of air, mild stomach discomfort Arrhythmias/Ectopy: Rare PVC ST-T Changes: No significant changes. Conclusion: Unremarkable Lexiscan stress. Myoview images reported separately. Test Summary REST . . . . . . . Resting REST 02:47 . . 69 . 133/ 70 . . Stage 1 . . . . . . . Myoview Injected Stage 1 01:00 . . 78 . . . . Stage 2 01:00 . . 78 . . . . Stage 3 01:00 . . 74 . 147/ 67 . . Stage 4 01:00 . . 74 . 128/ 66 . . Stage 4 01:04 . . 73 . 128/ 66 . Stop exercise at 04:04 RECOVERY 01:00 . . 77 . 132/ 67 . . RECOVERY 02:00 . . 72 . 132/ 67 . . RECOVERY 03:00 . . 71 . 132/ 67 . . RECOVERY 03:41 . . 72 . 131/ 68 . . Electronically signed by : Vito Patino, 12/11/2019 10:36:23
--- NOTE | 2019-12-10 06:59 | CA_ITS ---
APPROVED REPORT EXAM: Comprehensive 2D, Doppler, and color-flow Echocardiogram Vehicle Washer: Nelly Ramirez RT(R) Ht: 6 ft 3 in Wt: 394lbs BSA: 2.93 BP: 127/71 mmHg Indications: COPD, ex smoker, fatigue, edema, HTN, DM, SOB, hyperlipidemia, btk amputation, CKD, lung mets Echo Enhancing Agent Indication: Endocardial border delineation Agent(s) / Amount(s) Used: Definity 2 cc 2D Dimensions LVOT 2.25 cm (M/F) 1.5-2.5 M-Mode Dimensions RVDd 2.41 cm (0.9-2.6) LVDd 6.21 cm (3.5-5.7) LVDs 4.72 cm (3.5-5.7) IVSd 0.87 cm (0.6-1.1) PWd 1.23 cm (0.6-1.1) EF (Teich) 46.90% FS 24.00% EDV (Teich) 194.70 mL ESV (Teich) 103.40 mL LV Diastology E/A Ratio 0.89 Mitral Valve MV A Velocity 132.00 (40-130 cm/s) Left Ventricle Left atrium is mildly enlarged, left ventricle is normal size, mild concentric left ventricular hypertrophy, visually estimated ejection fraction 55% with no regional wall motion abnormality. Endocardial surfaces are poorly visualized. Diastolic parameters are inconclusive. Right Ventricle Right atrium and right ventricular normal size and contractility. Aortic Valve Aortic valve is thickened and calcified leaflet chordae display mobility. There is no aortic stenosis or aortic insufficiency. Mitral Valve Mitral valve leaflets are minimally thickened. The mitral inflow velocities not suggestive of significant mitral stenosis, there is mild mitral regurgitation. Tricuspid Valve Tricuspid valve is minimally thickened, there is mild tricuspid regurgitation, tricuspid regurgitation jet velocity is inadequate for calculation of the right ventricular systolic pressure. Pulmonic Valve Pulmonic valve is poorly visualized. Great Vessels Aortic root is normal size. Pericardium No significant pericardial effusion noted. Conclusion 1. Enlarged left atrium, normal left ventricular size, mild concentric left ventricular hypertrophy, visually estimated ejection fraction 55% with no regional wall motion abnormality, diastolic parameters are inconclusive. 2. Thickened and calcified aortic valve without Doppler evidence of aortic stenosis or aortic insufficiency. 3. Thickened and calcified mitral valve, without Doppler evidence of significant mitral stenosis, there is mild mitral regurgitation. 4. Mild tricuspid regurgitation. 5. No significant pericardial effusion noted. 6. Technically difficult study. Electronically signed by : Vito Patino, 12/11/2019 14:27:18
--- NOTE | 2019-12-10 06:59 | NM_ITS ---
APPROVED REPORT Exam: Nuclear Stress Test Indication: SOB, HTN, D.M., TOB USE, SOB, ABN EKG Patient Location: Outpatient Stress Tech: Joya Foley [place] Tech:Vianey Jordan, ARRT, RT (R)(N) Ht: 6 ft 3 in Wt: 380 lbs HR: 67 bpm BP: 133/70 mmHg BSA: 2.88 m2 BMI: 47.4 History: SOB, HTN, D.M., TOB USE, SOB, ABN EKG Procedure: Patient received a 0.4 mg of intravenous Lexiscan, resting heart rate 67 bpm, resting blood pressure 133/70 mmHg, with Lexiscan maximum heart rate achived was 76 bpm which is Less than 85 % of the maximum predicted heart rate and blood pressure was 147/67 mmHg. With Lexiscan, patient denied any complaint of chest pain. Electrocardiogram Resting electrocardiogram showed sinus rhythm, with Lexiscan less than 1.[address] segment depression noted from the baseline EKG. The EKG portion of the Lexiscan Myoview is nondiagnostic. Cardiac Stress and Resting SPECT Images: Cardiac Stress and Resting SPECT images were obtained using technetium 99m Myoview 32.0 mCi stress and 10.03 mCi at rest. Gated SPECT for analysis of segmental wall motion and calculation of the ejection fraction also done. Cardiac stress and resting SPECT images show a fixed defect involving the inferolateral and posterolateral wall with normal contractility gated SPECT is likely secondary to soft tissue attenuation, no reversible ischemia seen. Computer derived ejection fraction is 60% with no regional wall motion abnormality, right ventricle is normal size and contractility. Conclusion: 1. The EKG portion of the Lexiscan Myoview is nondiagnostic. 2. No obvious scintigraphic evidence of reversible ischemia seen, computer derived ejection fraction is 60% with no regional wall motion abnormality, right ventricle is normal size and contractility. 3. Likely normal Lexiscan Myoview study, the study is technically limited due to patient's body habitus. Clinical correlation is recommended Electronically signed by : Vito Patino, 12/11/2019 10:41:38
--- NOTE | 2019-12-10 07:22 | HMH.ITSHM ---
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 []POTASSIUM NEBIVOLOL LISINOPRIL LAVETATOL HCTZ FUROSEMIDE FEXOFENANTINE BENADRYL WARFARIN TRAZADONE SENNA VOTRIENT LEVOTHYROXINE INSULIN ALBUTEROL GABAPENTIN FLONASE ETODOLAC CALCIUM ATORVASTATIN AMLODIPINE
[2019-12-10 09:49] LABS: POC Glucose,Bedside 136 (70-110)
== END ==
PROVIDERS: PCP Family Medicine; Visit Provider Physician Assistant
DX: C73 Malignant neoplasm of thyroid gland (principal); C79.9 Secondary malignant neoplasm of unspecified site; E11.69 Type 2 diabetes mellitus with other specified complication; I10 Essential (primary) hypertension; J44.9 Chronic obstructive pulmonary disease, unspecified; J45.909 Unspecified asthma, uncomplicated; R06.02 Shortness of breath; Z79.4 Long term (current) use of insulin; Z86.711 Personal history of pulmonary embolism; Z86.718 Personal history of other venous thrombosis and embolism; Z87.891 Personal history of nicotine dependence; Z89.512 Acquired absence of left leg below knee
CPT/HCPCS: 78452; 82962; 93017; 93306; 93976; A9502; J2785; Q9957

== ENCOUNTER 2019-12-12 10:13 | Day surgery (SDC) | payer BC, SELFPAY ==
[2019-12-12 10:27] VITALS: BP 172/67; PULSE 74; RESP 18; TEMP 36.7; O2SAT 95; BMI 47.5
[2019-12-12 10:45] LABS: POC Glucose,Bedside 338 (70-110)
[2019-12-12 11:12] VITALS: BP 145/89; PULSE 88; RESP 18; O2SAT 98
[2019-12-12 11:13] VITALS: BP 148/89; PULSE 85; RESP 18; O2SAT 98
--- NOTE | 2019-12-12 11:15 | HMH.PMPROC ---
- Procedure Date: 12/12/19 Time: 11:15 Anesthesiologist:: Cody Smiley MD Complications:: None Pre-procedure Diagnosis:: Left hip degenerative osteoarthritis Post-procedure Diagnosis:: Same Indications for Procedure:: This patient is a pleasant 58-year-old white male who we are treating for left hip degenerative osteoarthritis. He is status post RFA to the facet joints of L4-5 and L5-S1. He is doing well from these. He does have some low back pain over the facet joints of L3-L4. He did well with medial branch blocks to these facet joints he was 80 to 90% better. I believe he would benefit from RFA ablation to the facet joints of L3-L4 bilaterally. We will seek approval for this. Today we will do a left hip intra-articular injection to help with his left hip pain and degenerative osteoarthritis. Procedure Details:: Left hip intra-articular injection Informed consent was obtained risk and benefits of the procedure were explained to the patient. Patient was taken to the procedure room. Left hip was prepped using ChloraPrep. 22-gauge spinal needle was inserted and advanced into the left hip joint. Needle placement was confirmed with dye. After this we injected 10 mL bupivacaine 0.25%. We did not use steroid in its patient as his blood sugars were 350. Patient tolerated the procedure well with no complications. Plan and Disposition:: We will follow-up with him in 2 weeks. Will reevaluate symptoms at that time. We will also seek approval for radiofrequency ablation to the facet joints of L3-L4 bilaterally. He did benefit from medial branch blocks to this level with 80% relief in his pain symptoms.
[2019-12-12 11:26] VITALS: BP 168/79; PULSE 75; RESP 20; O2SAT 95
== END 2019-12-12 11:27 | disposition home or self-care (01) ==
LOC: SC.PAINP 10:14
PROVIDERS: PCP Family Medicine; Visit Provider Anesthesiology
DX: M16.12 Unilateral primary osteoarthritis, left hip (principal); E78.5 Hyperlipidemia, unspecified; R01.1 Cardiac murmur, unspecified; J45.909 Unspecified asthma, uncomplicated; I26.99 Other pulmonary embolism without acute cor pulmonale; Z90.89 Acquired absence of other organs; Z90.49 Acquired absence of other specified parts of digestive tract; E89.0 Postprocedural hypothyroidism; Z79.4 Long term (current) use of insulin; Z79.01 Long term (current) use of anticoagulants; Z79.899 Other long term (current) drug therapy; Z88.1 Allergy status to other antibiotic agents; Z88.2 Allergy status to sulfonamides; Z88.8 Allergy status to other drugs, medicaments and biological substances
CPT/HCPCS: 20610; 77002; 82962; Q9966

== ENCOUNTER 2019-12-24 08:30 | Day surgery (SDC) | payer BC, SELFPAY ==
[2019-12-24] VITALS (10 sets, daily range): BP systolic 111–186; BP diastolic 62–88; PULSE 59–68; RESP 16–18; TEMP 36.8; O2SAT 94–97; BMI 48.4
[2019-12-24 09:23] LABS: Basophils # 0.1 K/mm3 (0-0.2); Basophils % 0.8 % (0.1-2.0); Eosinophils # 0.2 K/mm3 (0.0-0.4); Eosinophils % 2.5 % (0.1-12.0); Hematocrit 43.3 % (42.0-52.0); Hemoglobin 14.4 g/dL (14.1-18.0); Lymphocytes # 1.3 K/mm3 (0.7-4.5); Lymphocytes % 18.8 % (10-50); Mean Corpuscular HGB Conc 33.4 g/dL (31.8-35.4); Mean Corpuscular Hemoglobin 29.1 pg (27.0-31.2); Mean Corpuscular Volume 87.3 fl (80-94); Mean Platelet Volume 8.4 fl (7.4-10.4); Monocytes # 0.5 K/mm3 (0.1-1.0); Monocytes % 6.6 % (1.7-9.3); Neutrophils # 4.9 K/mm3 (1.8-7.8); Neutrophils % 71.3 % (37.0-80.0); Platelet Count 223 K/mm3 (142-424); Red Blood Count 4.95 M/mm3 (4.60-6.20); White Blood Count 6.8 K/mm3 (4.8-10.8)
[2019-12-24 09:30] LABS: Chloride 100 mmol/L (98-107); Potassium 4.5 mmoL/L (3.5-5.1); Sodium 136 mmol/L (136-145)
[2019-12-24 09:33] LABS: Anion Gap 8.5 mEq/L (5-15); Blood Urea Nitrogen 20 mg/dl (9-20); Calcium 9.5 mg/dl (8.4-10.2); Carbon Dioxide 32 mmol/L (22.0-30.0); Creatinine Clearance Estimated 93 mL/min (50-200); Estimated Glomerular Filt Rate 76 ml/min (>60); GFR (African American) 92 ML/MIN (>60); Glucose 147 mg/dl (74-100); INR 1.09 (0.9-1.1); Prothrombin Time 11.1 seconds (9.4-11.8)
--- NOTE | 2019-12-24 11:30 | IR_ITS ---
APPROVED REPORT Patient Location: Outpatient Inventory Specialist: SCOTTIE Huggins RT (R) PROCEDURES Left heart catheterization Left ventriculogram Selective coronary angiogram Drug-eluting stent deployment to the mid LAD INDICATION Coronary artery disease, Equivocal stress test, Angina pectoris Informed consent was obtained prior to the procedure. COMPLICATIONS none Estimated Blood Loss: less than 10 mls TECHNIQUE One percent lidocaine used to anesthetize the right anterior aspect of the wrist. The right radial artery was accessed via the Seldinger technique. A 6 Faroese sheath was placed in the right radial artery. 2.5 mg of verapamil, 800 mcg of nitroglycerin, 1mg Lidocaine and 5000 U Heparin were given through the arterial sheath. The Papa catheter was also used to perform left heart catheterization, left ventriculogram and selective coronary angiogram. At the end the diagnostic procedure therapeutic heparin was administered giving a therapeutic ACT and the same catheter was used to intubate the left main artery. A BMW wire was used to traverse the stenosis and a 3 mm x 26 mm resolute phuong stent was deployed at 18 christy reducing the severe stenosis to 0%. BARBI-3 flow was present before and after the procedure. At the end of the procedure the apparatus was removed the sheath was removed good hemostasis was achieved using TR banding patient was transferred to the postop holding her in stable condition ANGIOGRAPHIC RESULTS The left main artery Normal The left anterior descending artery Has a proximal concentric 30 to 40% stenosis followed by a long mid vessel 80% stenosis. The LAD is a large vessel. It also has a large first diagonal artery which has an proximal 40 to 50% stenosis. The circumflex artery Is nondominant and has 20 and 30% mid vessel stenoses The right coronary artery Is a large dominant vessel and has proximal 20 to 30% stenosis. The JIN ventriculogram reveals Normal 65% The left ventricular end-diastolic pressure 10 mmHg IMPRESSION Severe mid LAD disease as described above Successful stenting of the middle ID severe disease reduced to 0% with underlying stent Persistent moderate proximal LAD disease Normal ejection fraction Normal left ventricular end-diastolic pressure PLAN 1. Dual antiplatelet therapy plus Coumadin for 1 month then discontinue the aspirin and continue Plavix and Coumadin 2. LDL less than 55 3. Risk factor modification 4. Cardiac rehabilitation 5. Avoidance of tobacco products Electronically signed by : Tomas Liu 12/24/2019 12:58:54
[2019-12-24 13:21] LABS: CATHL Activated Clotting Time > 400 SEC (74-125)
--- NOTE | 2019-12-24 15:53 | HMH.PHACLD ---
Can Worthy has received discharge medication counseling on the following medications: PATIENT IS CURRENT TAKING LABETOLOL 200 MG BID, ATORVASTATIN 20 MG HS, LISINOPRIL 40 MG DAILY. MD ADDING PLAVIX 75 MG DAILY AND ASPIRIN 81 MG DAILY.
== END 2019-12-24 15:06 | disposition home or self-care (01) ==
LOC: CATHLAB 08:31
PROVIDERS: PCP Family Medicine; Visit Provider Internal Medicine
DX: I25.118 Atherosclerotic heart disease of native coronary artery with other forms of angina pectoris (principal); C73 Malignant neoplasm of thyroid gland; C79.9 Secondary malignant neoplasm of unspecified site; E11.69 Type 2 diabetes mellitus with other specified complication; I10 Essential (primary) hypertension; J44.9 Chronic obstructive pulmonary disease, unspecified; Z86.711 Personal history of pulmonary embolism; Z86.718 Personal history of other venous thrombosis and embolism; Z87.891 Personal history of nicotine dependence; Z89.512 Acquired absence of left leg below knee; Z79.4 Long term (current) use of insulin; Z79.01 Long term (current) use of anticoagulants; Z79.02 Long term (current) use of antithrombotics/antiplatelets; Z79.899 Other long term (current) drug therapy; Z88.0 Allergy status to penicillin; Z88.1 Allergy status to other antibiotic agents; Z88.8 Allergy status to other drugs, medicaments and biological substances
CPT/HCPCS: 80048; 85025; 85347; 85610; 92928; 93458; 99152; C1725; C1760; C1769; C1876; C9600; J1644; Q9967

== ENCOUNTER → 2020-01-05 10:45 | Outpatient (POV) | payer BC, SELFPAY ==
--- NOTE | 2020-01-05 11:32 | HMH.VVPMSO ---
[facility] Virtual Visit SOAP Consent for virtual visit:: With the recent concerns about the COVID-19, we are trying to minimize exposure to you by shifting to telehealth appointments whenever possible. It restricts me from seeing you in person, but the trade off is protecting you during this pandemic. Can you see and hear me okay, and do you consent to this option? If not, I would be happy to see if we can reschedule your appointment in the future, when feasible. Has patient consented to this virtual visit?: Yes Subjective:: Patient is a pleasant 59-year-old white male who presents today for follow-up after left hip intra-articular injection. He was only injected with bupivacaine so he had no long-term relief of his pain. He rates his pain a 7 out of 10. At his last visit Dr. Smiley talked about potentially doing an RFA however since then he has had a stent placed and he is now unable to come off of his anticoagulation therapy. Patient states he is now having 0 back pain the only pain that he is having is left hip pain at this time. Patient is interested in repeating the left intra-articular injection with steroid. Patient has been much more vigilant about keeping his blood sugar low. ROS General: no recent weight change, no fever, no sleep disturbances Respiratory: no cough, no shortness of air, no recurring pulmonary infections Cardiovascular/Peripheral Vascular: No chest pain, No palpitations, no edema, no shortness of breath. Gastrointestinal: no new onset incontinence, normal bowel movements reported Genitourinary: no new onset incontinence Musculoskeletal: Left hip pain Psychiatric: normal mood/ affect, Neurological: [denies new onset weakness in extremities], [denies new onset balance issues] Objective:: Physical exam: Constitutional: Healthy appearing, well-developed, alert, in no acute distress Psychiatric: Judgment and insight intact, Alert and oriented x4 Mood and affect: Mood normal, affect appropriate Head and face: Inspection: Normocephalic atraumatic, extraocular movement intact Respiratory: Breathing nonlabored, nondyspneic Cardiovascular: No cyanosis, clubbing, or edema observed Skin: Head and neck: Skin with no lesions or rash observed Gait: Able to walk without assistive device: Able to heel and toe walk Neurologic: Sensation grossly intact per patient Musculoskeletal: Decreased range of motion left hip noted Assessment:: Degenerative disc disease, spondylosis, left hip degenerative osteoarthritis, cancer Plan:: We will schedule the patient for left intra-articular hip injection. Given his symptomology I do believe that this would be beneficial. He did get benefit with the bupivacaine however it was short acting. I will follow-up with him after this reassess his symptoms at that time he has been instructed to call the office if he has any issues prior to his next appointment. Dr. Smiley has reviewed this note and agrees with this plan of care. This note was dictated using voice recognition software and may contain errors or omissions Time In:: 11:00 Time Out:: 11:10 [facility] History I have reviewed the patient's past medical history: Yes Medical History: Reports:: Asthma, Cancer (thyroid), Deep Vein Thrombosis, Diabetes Mellitus Type 1, Diabetes Mellitus Type 2, Heart Murmur, Hyperlipidemia, Hypertension, Pulmonary Embolism Denies:: MRSA, Seizures *Have you ever received a pneumonia vaccine?: No *Have you received a flu vaccine this season?: No Other Medical History: Reports: Anemia, Arthritis, Thyroid Disease, Other. Denies: Blood Transfusion Reaction Laterality Cases: Left: Other, Bilateral: Tonsillectomy Other Surgeries: Yes: Cancer Surgery, Cholecystectomy, Thyroidectomy, Other Amputation: Yes (left bka) Fractures: No - *Social History Smoking Status: Former smoker Tobacco Type: cigarettes Alcohol Intake: never Alcohol Intake Frequency:: 0-2 drinks per day *Occupational Status:: other Housing: house
== END ==
PROVIDERS: Visit Provider Clinical Nurse Specialist Family Health
DX: M47.816 Spondylosis without myelopathy or radiculopathy, lumbar region (principal); C78.00 Secondary malignant neoplasm of unspecified lung; M16.12 Unilateral primary osteoarthritis, left hip
CPT/HCPCS: 99212

== ENCOUNTER 2020-01-08 06:34 | Observation (INO) | payer BC, MEDICARE, SELFPAY ==
[2020-01-08] VITALS (8 sets, daily range): BP systolic 116–167; BP diastolic 55–95; PULSE 60–72; RESP 12–20; TEMP 36.6–37.1; O2SAT 95–99; BMI 48.7; BMI 47.7
--- NOTE | 2020-01-08 06:44 | ECG_ITS ---
APPROVED REPORT Exam: Resting ECG HR:67 bpm ECG Measurements Heart Rate 67 AXES HI 212 P 10 QRSd 82 QRS 62 QT 372 T 82 QTc 393 <Conclusion> Sinus rhythm with 1st degree AV block Otherwise normal ECG Electronically signed by : Richie Coulter, 01/08/2020 15:33:48
--- NOTE | 2020-01-08 06:54 | XR_ITS ---
PROCEDURE: XR CHEST PORTABLE CLINICAL HISTORY: shortness of air COMPARISON: CXR1VP XR chest portable from 02/27/2018 CT ANGIO CHEST from 07/30/2019 XR CHEST 2V from 07/30/2019 XR CHEST 2V from 09/25/2019 FINDINGS: Borderline cardiomegaly without failure. 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 This appears slightly larger compared to the recent exam of 09/25/2015. This could be confirmed with CT. The remaining lungs are clear. Surgical clips are present in the right neck. No acute bony abnormalities. 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 Dictated by: Paul Grace MD 01/08/2020 07:49 Electronically signed by Paul Grace MD in [place] 01/08/2020 07:49
--- NOTE | 2020-01-08 07:00 | HMH.EDSOB ---
ED Disposition Clinical Impression: Upper gastrointestinal bleed, Thyroid cancer Disposition: Admitted as Observation Condition on Discharge: Good - Critical Care Critical Care Time: No Attestation: On 01/08/20, the high probability of a clinically significant, sudden or life threatening deterioration of the following system(s) required my full and direct attention, intervention and personal management. The time I documented below is in addition to time spent performing reported procedures but includes the following listed in this critical care notation. Medical Decision Making - Medical Records Medical records reviewed: Yes: I reviewed the patient's medical records. - Mio Inquiry Pt receiving controlled substance: No Vital Signs: 01/08/20 06:44 01/08/20 07:23 Temperature 97.8 F Temperature Source Oral Pulse Rate [Right Brachial] 72 69 Respiratory Rate 18 12 Blood Pressure [Right Arm] 165/83 H 119/61 Blood Pressure Mean [Right Arm] 110 80 Blood Pressure Source [Right Arm] Automatic Cuff Blood Pressure Position [Right Arm] Sitting 02 Sat by Pulse Oximetry 96 95 Oxygen Delivery Method Room Air - Lab Data Lab results reviewed: Yes: I reviewed the patient's lab results. Lab Results 01/08/20 06:50: WBC 8.3, RBC 3.80 L, Hgb 11.3 L, Hct 33.0 L, MCV 86.9, MCH 29.8, MCHC 34.2, RDW 19.3 H, Plt Count 303, MPV 7.8, Neut % (Auto) 75.8, Lymph % (Auto) 16.4, Dewitt % (Auto) 5.2, Eos % (Auto) 1.9, Baso % (Auto) 0.8, Neut # (Auto) 6.3, Lymph # (Auto) 1.4, Dewitt # (Auto) 0.4, Eos # (Auto) 0.2, Baso # (Auto) 0.1 01/08/20 06:50: Sodium 136, Potassium 4.4, Chloride 102, Carbon Dioxide 28, Anion Gap 10.4, BUN 32 H, Creatinine 0.80, Estimated Creat Clear 93, Estimated GFR 98, Est GFR ( Amer) 119, Glucose 199 H, Calcium 9.3, Total Bilirubin 0.4, Direct Bilirubin 0.1, Conjugated Bilirubin 0.0, Indirect Bilirubin 0.3, Unconjugated Bilirubin 0.3, AST 30, ALT 36, Alkaline Phosphatase 89, Troponin I < 0.01, Total Protein 7.0, Albumin 3.7 01/08/20 06:50: NT-Pro-B Natriuret Pep 294 H 01/08/20 06:50: SARS-CoV-2 IgG Ab (Rapid) Negative, SARS-CoV-2 IgM Ab (Rapid) Negative 01/08/20 06:50: PT 30.6 H, INR 3.21 H, APTT 34.6 H 01/08/20 07:00: Stool Occult Blood Positive A Result diagrams: 01/08/20 06:50 01/08/20 06:50 Orders (Tests/Meds): ORDERS Category Date Time Status Troponin I Q3H Lab 01/08/20 10:00 Ordered Troponin I Q3H Lab 01/08/20 13:00 Ordered - Radiology Data #1 Image(s): Chest Image Reviewed: Yes I reviewed the patient's radiology image Preliminary Findings: Abnormal (met dis) - ECG Data Tracing #1 Normal Sinus Rhythm: Yes Ischemic changes: non-specific ST-T wave changes - Physician Consults Physician Consulted: joss Reason -: Admission - NARDA Score for Non-Stemi Age of Patient: 60-69 years old Heart Rate: 70-89 bpm Systolic Blood Pressure: 160-199 mmHg Serum Creatinine: 0.80-1.19 mg/dl CHF Killip Class: I-No CHF Other Risk Factors: None Non-Stemi Risk Score: 84 Resp/SOB HPI - General Chief Complaint: Shortness of Breath/Dyspnea Stated Complaint: SOA,Dizziness,Black Stool Time Seen by Provider: 01/08/20 07:00 Mode of Arrival: Family Vehicle Source of Information: Patient, Spouse, Medical Record Limitations: No Limitations Description of Symptoms (Recalled from ER Triage Doc. by RN): pt describes shortness of air with exertion that has progressively worsened since Sunday. He denies chest pain, denies nausea. states his big concern is all that his stools have went from being red in color to black as coal ; pt denies any abd pain, but mentions he has bruises coming up on his stomach (points at right side) - History of Present Illness sob with dizzyness and dark stool over the last few days - no chest pain - had recent cardiac stents and hx of pe and dvt MD Complaint: shortness of breath Onset (ago): day(s) Severity: moderate Known history of: DVT Associated symptoms: de
[2020-01-08 07:09] LABS: Basophils # 0.1 K/mm3 (0-0.2); Basophils % 0.8 % (0.1-2.0); Eosinophils # 0.2 K/mm3 (0.0-0.4); Eosinophils % 1.9 % (0.1-12.0); Hemoglobin 11.3 g/dL (14.1-18.0); Lymphocytes # 1.4 K/mm3 (0.7-4.5); Lymphocytes % 16.4 % (10-50); Mean Corpuscular HGB Conc 34.2 g/dL (31.8-35.4); Mean Corpuscular Hemoglobin 29.8 pg (27.0-31.2); Mean Corpuscular Volume 86.9 fl (80-94); Mean Platelet Volume 7.8 fl (7.4-10.4); Monocytes # 0.4 K/mm3 (0.1-1.0); Monocytes % 5.2 % (1.7-9.3); Neutrophils # 6.3 K/mm3 (1.8-7.8); Neutrophils % 75.8 % (37.0-80.0); Platelet Count 303 K/mm3 (142-424); Red Cell Distribution Width 19.3 % (11.5-17.5); White Blood Count 8.3 K/mm3 (4.8-10.8)
[2020-01-08 07:13] LABS: Chloride 102 mmol/L (98-107)
[2020-01-08 07:14] LABS: Potassium 4.4 mmoL/L (3.5-5.1); Sodium 136 mmol/L (136-145)
[2020-01-08 07:15] LABS: Occult Blood,Stool Positive (Negative)
[2020-01-08 07:16] LABS: Alanine Aminotransferase 36 U/L (12-78); Alkaline Phosphatase 89 U/L (38-126); Anion Gap 10.4 mEq/L (5-15); Aspartate Amino Transferase 30 U/L (17-59); Bilirubin,Direct 0.1 mg/dl (0.0-0.4); Bilirubin,Indirect 0.3 mg/dL (0.0-0.9); Bilirubin,Total 0.4 mg/dl (0.2-1.3); Bilirubin,Unconjugated 0.3 mg/dL (0.0-1.1); Blood Urea Nitrogen 32 mg/dl (9-20); Carbon Dioxide 28 mmol/L (22.0-30.0); Creatinine Clearance Estimated 93 mL/min (50-200); Estimated Glomerular Filt Rate 98 ml/min (>60); GFR (African American) 119 ML/MIN (>60)
[2020-01-08 07:17] LABS: Albumin Level 3.7 g/dl (3.5-5.0); Calcium 9.3 mg/dl (8.4-10.2); Glucose 199 mg/dl (74-100)
[2020-01-08 07:25] LABS: NT Pro Brain Natriuretic Pep. 294 pg/mL (0-125)
[2020-01-08 07:31] LABS: Troponin I < 0.01 ng/ml (0.00-0.034)
[2020-01-08 07:42] LABS: Activated Partial Thrombo Time 34.6 seconds (23.6-34.0); Coronavirus 19 IgG Antibody Negative (Negative); Coronavirus 19 IgM Antibody Negative (Negative); INR 3.21 (0.9-1.1); Prothrombin Time 30.6 seconds (9.4-11.8)
--- NOTE | 2020-01-08 08:00 | PC.NURSE ---
speaking to Dr palumbo, accept pt admission
--- NOTE | 2020-01-08 08:07 | PC.NURSE ---
spoke with [facility] for bed assignment and called care management for status
--- NOTE | 2020-01-08 09:29 | HMH.PHAVTE ---
[facility] Pharmacy VTE Monitoring - Patient Demographics Admission date: 01/08/20 Report Date: 01/08/20 Time: 09:29 Allergies/Adverse Reactions: Patient Allergies cefepime Allergy (Severe, Verified 01/01/20 10:46) BLEEDING SORES piperacillin [From ZOSYN] Allergy (Severe, Verified 01/01/20 10:46) RENAL FAILURE tazobactam [From ZOSYN] Allergy (Severe, Verified 01/01/20 10:46) RENAL FAILURE vancomycin [VANCOMYCIN] Allergy (Severe, Verified 01/01/20 10:46) RENAL FAILURE ciprofloxacin [From CIPRO] Allergy (Intermediate, Verified 01/01/20 10:46) JOINT PAIN doxazosin Allergy (Intermediate, Verified 01/01/20 10:46) LOW BP/DEHYDRATION hydralazine [HYDRALAZINE] Allergy (Intermediate, Verified 01/01/20 10:46) LOW BP/DEHYDRATION nifedipine Allergy (Intermediate, Verified 01/01/20 10:46) LOW BP/DEHYDRATION pioglitazone [From ACTOS] Allergy (Intermediate, Verified 01/01/20 10:46) CHEST CONGESTION rosiglitazone [From AVANDIA] Allergy (Intermediate, Verified 01/01/20 10:46) CHEST CONGESTION sulfamethoxazole [From BACTRIM] Allergy (Intermediate, Verified 01/01/20 10:46) JOINT SWELLING trimethoprim [From BACTRIM] Allergy (Intermediate, Verified 01/01/20 10:46) JOINT SWELLING exenatide [From BYDUREON] Allergy (Unknown, Verified 01/01/20 10:46) Unknown allergy reaction sucralfate [From CARAFATE] Allergy (Unknown, Verified 01/01/20 10:46) Unknown allergy reaction carvedilol Adverse Reaction (Verified 01/01/20 10:46) Difficulty Breathing Height: 1.91 m Weight: 176.901 kg Patient Problems: Current Active Problems Thyroid cancer (Chronic) Upper gastrointestinal bleed (Acute) - VTE Risk Labs: VTE Related Lab Results Hgb 11.3 g/dL (14.1-18.0) L 01/08/20 06:50 Hct 33.0 % (42.0-52.0) L 01/08/20 06:50 Plt Count 303 K/mm3 (142-424) 01/08/20 06:50 PT 30.6 seconds (9.4-11.8) H 01/08/20 06:50 INR 3.21 (0.9-1.1) H 01/08/20 06:50 APTT 34.6 seconds (23.6-34.0) H 01/08/20 06:50 BUN 32 mg/dl (9-20) H 01/08/20 06:50 Creatinine 0.80 mg/dl (0.66-1.25) 01/08/20 06:50 Estimated Creat Clear 93 mL/min (50-200) 01/08/20 06:50 Clinical Trial Participant: No - Prophylaxis VTE Prophylaxis Ordered?: Yes Types of VTE Prophylaxis: TEDS Knee High
--- NOTE | 2020-01-08 09:31 | PC.NURSE ---
Pt arrived to floor, via w/c
[2020-01-08 12:39] LABS: POC Glucose,Bedside 140 (70-110)
--- NOTE | 2020-01-08 14:48 | HMH.HP ---
*Admission Date: 01/08/20 <GaganKadeema - 01/08/20 15:34> *Chief complaint: shortness of breath, near syncope, dark stools <GaganDestiny - 01/08/20 15:34> *History of present illness: Mr. Worthy is a 59-year-old male with a complicated medical history. He has a history of type 2 diabetes, hypertension, asthma, arthritis, osteomyelitis status post amputation of the left lower leg, and metastatic follicular thyroid carcinoma. He is currently followed by Dr. Soliman, who is his oncologist. The patient states that he had a cardiac stent placed by Dr. Liu on December 24, 2019. After stenting, his Bystolic was changed to labetalol and he continued to feel well. 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 The patient states he has never been able to tolerate carvedilol and he felt horrible. He was unable to breathe and was dizzy and felt like he was going to faint. He called the office and the carvedilol was changed to bisoprolol. He states this is also caused the same type of symptoms. He is requesting a cardiology consult and to be placed back on his Bystolic. He states all other beta-blockers seem to exacerbate his asthma. Over the weekend, he began noticing some blood that was bright red in his stool. By Sunday, his stools were dark black. He became weak, began sweating, and was extremely short of breath. He has been having some pain in his right upper quadrant and has been very dizzy and having near syncopal episodes. He presented to the emergency room and was found to have blood in his stool. He was admitted for further evaluation and treatment. <Destiny Farah - 01/08/20 15:34> [facility] History I have reviewed the patient's past medical history: Yes <Destiny Farah 01/08/20 15:34> Medical History: Reports:: Asthma, Cancer (metastatic follicular thyroid carcinoma), Deep Vein Thrombosis, Diabetes Mellitus Type 1, Diabetes Mellitus Type 2, Heart Murmur, Hyperlipidemia, Hypertension, Peripheral Artery Disease, Pulmonary Embolism Denies:: MRSA, Seizures <Destiny Farah 01/08/20 15:34> *Have you ever received a pneumonia vaccine?: Yes <Destiny Farah 01/08/20 15:34> *Have you received a flu vaccine this season?: Yes <Destiny Farah 01/08/20 15:34> Other Medical History: Reports: Anemia, Arthritis, Chemotherapy, Hoarseness, Hypothyroidism, Thyroid Disease, Other (osteomyelitis). Denies: Blood Transfusion Reaction <Destiny Farah 01/08/20 15:34> Laterality Cases: Left: Other, Bilateral: Tonsillectomy <Destiny Farah 01/08/20 15:34> Other Surgeries: Yes: Cancer Surgery, Cardiac Catheterization, Cholecystectomy, Thyroidectomy <Destiny Farah 01/08/20 15:34> Amputation: Yes (left bka) <Destiny Farah 01/08/20 15:34> Fractures: No <Destiny Farah 01/08/20 15:34> Comment: Intestinal blockage, vasectomy, tumor removed from spine, multiple left foot surgeries with eventual goal left BKA, left leg prosthesis, ORIF of pathologic left humeral fracture, cholecystectomy, jaw surgery due to metastatic cancer, I&D of neck abscess and right side of face <Destiny Farah 01/08/20 15:34> - *Social History Last grade of school completed: Some college <Destiny Farah 01/08/20 15:34> Smoking Status: Former smoker <Destiny Farah 01/08/20 15:34> Tobacco Type: cigarettes <Destiny Farah 01/08/20 15:34> Alcohol Intake: never <Destiny Farah 01/08/20 15:34> Alcohol Intake Frequency:: 0-2 drinks per day <Destiny Farah 01/08/20 15:34> *Occupational Status:: retired, disabled <Destiny Farah 01/08/20 15:34> Housing: house <Destiny Farah 01/08/20 15:34> Household Members: spouse <Destiny Farah 01/08/20 15:34> *Travel in the last 8 weeks: None <Destiny Farah 01/08/20 15:34> Family Hx:: Adopted <Destiny Farah - 01/08/20 15:34> Review of Systems - Constitutional Reports excessive sweating, Reports fatigue, Reports
--- NOTE | 2020-01-08 15:16 | PC.NURSE ---
Spoke with DALE Gentile about General Surgery consult, she notified Dr. Tovar.
--- NOTE | 2020-01-08 15:17 | HMH.CNCARD ---
History of Present Illness Consult date: 01/08/20 Requesting physician: Prem Pandya Chief complaint: GI Bleed, recent coronary stenting Additional Medical History:: 1. History of DVTs and pE's, 2017 A. Chronic Coumadin therapy B. CT scan, 07/2019, IMPRESSION: 1. No evidence of pulmonary embolus or aortic aneurysm or dissection. 2. Coronary artery calcifications are present. 3. There are noncalcified bilateral pulmonary nodules. An 8 mm nodules now present in the right lower lobe and has increased in size. A new 5 mm nodules present in the left lower lobe. Metastasis are considered. 4. Destructive lesion is present involving the right 6th rib and is slightly larger compared to the previous study 5. Multiple old bilateral rib fractures 2. Diabetes mellitus, controlled by PCP 3. History of metastatic follicular thyroid cancer status post iodine therapy A. s/p right TMJ surgery due to metastatic nodule 4. History of lung metastasis for which he is on oral chemotherapy A. CT scan of the chest as noted above with enlarging nodule in the left lower lobe. 5. Hyperlipidemia, on statin therapy 6. Ex-smoker 7. History of left below the knee amputation due to nonhealing ulcers 8. Hypertension A. Renal duplex, 12/2019, Study suggests less than 60% stenosis of the left renal artery. Study suggests normal right renal artery 9. Coronary artery disease, 12/2019 A. Lexiscan Myoview without ischemia and normal EF B. Echocardiogram, 1. Enlarged left atrium, normal left ventricular size, mild concentric left ventricular hypertrophy, visually estimated ejection fraction 55% with no regional wall motion abnormality, diastolic parameters are inconclusive. 2. Thickened and calcified aortic valve without Doppler evidence of aortic stenosis or aortic insufficiency. 3. Thickened and calcified mitral valve, without Doppler evidence of significant mitral stenosis, there is mild mitral regurgitation. 4. Mild tricuspid regurgitation. 5. No significant pericardial effusion noted. 6. Technically difficult study. C. Left heart catheterization, 12/24/2019,ANGIOGRAPHIC RESULTS The left main artery Normal The left anterior descending artery Has a proximal concentric 30 to 40% stenosis followed by a long mid vessel 80% stenosis. The LAD is a large vessel. It also has a large first diagonal artery which has an proximal 40 to 50% stenosis. The circumflex artery Is nondominant and has 20 and 30% mid vessel stenoses The right coronary artery Is a large dominant vessel and has proximal 20 to 30% stenosis. The JIN ventriculogram reveals Normal 65% The left ventricular end-diastolic pressure 10 mmHg IMPRESSION Severe mid LAD disease as described above Successful stenting of the middle ID severe disease reduced to 0% with underlying stent Persistent moderate proximal LAD disease Normal ejection fraction Normal left ventricular end-diastolic pressure PLAN 1. Dual antiplatelet therapy plus Coumadin for 1 month then discontinue the aspirin and continue Plavix and Coumadin 2. LDL less than 55 3. Risk factor modification 4. Cardiac rehabilitation 5. Avoidance of tobacco products 10. GI bleed, 12/2019 11. Laparoscopic cholecystectomy, 2018 12. 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 Worthy is a 59-year-old male with a complicated medical history. He has a history of type 2 diabetes, hypertension, asthma, arthritis, osteomyelitis status post amputation of the left lower leg, and metastatic follicular thyroid carcinoma. He is currently followed by Dr. Soliman, who is his oncologist. The patient states that he had a cardiac stent placed by Dr. Liu on December 24, 2019. After stenting, his Bystolic was changed to labetalol and he continued to feel well. 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
[2020-01-08 17:16] LABS: Hematocrit 30.5 % (42.0-52.0); Hemoglobin 10.2 g/dL (14.1-18.0)
--- NOTE | 2020-01-08 17:45 | CT_ITS ---
PROCEDURE: CT ABDOMEN PELVIS WO CON CLINICAL INDICATION: RUQ abdominal pain Upper quadrant pain with dark stool COMPARISON: ABDPELW CT abdomen pelvis w con from 10/16/2018 TECHNIQUE: Axial images obtained with sagittal and coronal reformats. All CT scans at the facility use one or more dose reduction, viz: automated exposure control, ma/kV adjustment per patient size (including targeted exams where dose is matched to indication, i.e. head), or iterative reconstruction technique. FINDINGS: LOWER THORAX: 3 mm noncalcified nodule left lower lobe. 6 mm noncalcified nodule present in the right lower lobe. 4 mm noncalcified nodule left lower lobe medially. 4 mm noncalcified nodule left lower lobe centrally there is extensive coronary artery calcification. ABDOMEN & PELVIS: Post cholecystectomy. The liver, spleen, adrenal glands, pancreas, and kidneys have an unremarkable unenhanced appearance. No renal or ureteral calculi. There is nonspecific stranding of the perinephric renal fat. Unremarkable appendix. No intestinal obstruction or free air. There is a lytic lesion involving the left ilium in the supra acetabular region. This has developed since 10/16/2018. This measures approximately 4 cm without obvious soft tissue extension. There are postsurgical changes of the lumbar spine with prior posterior fusion at L4 and L5. There are old right 6th through 11th rib fractures. IMPRESSION: 1. No acute abdominal or pelvic findings. 2. New lytic lesion of the left ilium consistent with metastatic disease. 3. Severe coronary artery calcifications. 4. Bibasilar pulmonary nodules suggestive of metastatic disease Dictated by: Paul Grace MD 01/09/2020 07:55 Electronically signed by Paul Grace MD in [place] 01/09/2020 07:55
[2020-01-08 20:04] LABS: POC Glucose,Bedside 146 (70-110)
--- NOTE | 2020-01-08 20:15 | PC.NURSE ---
Addendum entered by Rodney Grover RN 01/08/20 20:23: PATIENT COMPLAINED OF DIZZINESS. THIS RN EDUCATED PATIENT TO NOT GET UP OUT OF BED ALONE, TO USE CALL LIGHT. PATIENT VERBALIZED AN UNDERSTANDING. WHEN THIS RN WENT TO ASSESS PATIENT IV POLE WAS UNPLUGGED, THIS RN AGAIN EDUCATED PATIENT ON THE IMPORTANCE OF USING HIS CALL LIGHT FOR ASSISTANCE. THIS RN EXPLAINED FOR SAFETY REASONS TO PLEASE USE CALL LIGHT. PATIENT VERBALIZED AN UNDERSTANDING. Original Note: THIS RN SPOKE WITH DR. ARROYO IN REGARDS TO PATIENT'S PLAN FOR 01/09/2020. PER DR. ARROYO PATIENT CAN HAVE A CLEAR LIQUID DIET, NPO AT MIDNIGHT. PATIENT IS TO HAVE CBC DRAWN AT 5AM, HE WILL NEED RESULTS BY 0530. IF HGB IS 9.0 OR LESS, PATIENT WILL HAVE AN EGD AT 0700. IF HGB IS GREATER THAN 9.1, WILL HOLD OFF. PATIENT IS A &O X4, LUNGS CLEAR, BUE PULSES EQUAL, LEFT POPLITEAL +2, RIGHT PEDAL +2. PATIENT HAS A PATCH OF ROUGH SKIN ON INNER RIGHT THIGH AND SCABS THROUGHOUT. NO OTHER CONCERNS AT THIS TIME.
--- NOTE | 2020-01-08 22:05 | PC.NURSE ---
Addendum entered by Adry Thornton RN 01/09/20 01:58: NARC* Original Note: HOME MEDS IN LOCKED DRAWER, NEEDS VERIFIED BY PHARM IN AM. GABAPENTIN COUNTED WITH ANOTHER RN IN PT'S ROOM WITH PT WITNESSING, MARKUS COUNT FORM IN DRAWER.
--- NOTE | 2020-01-08 22:05 | PC.NURSE ---
Addendum entered by Adry Thornton RN 01/09/20 02:19: RUQ DISCOMFORT NOTED UPON PALPATION OF ABD. Original Note: PT C/O NAUSEA, ADMINISTERED ZOFRAN PER AUG. PT STATES HE WAS ABLE TO TOLERATE JELLO AND CHICKEN BROTH EARLIER TODAY.
[2020-01-08 22:37] LABS: POC Glucose,Bedside 183 (70-110)
[2020-01-09 04:00] VITALS: BP 104/56; PULSE 69; RESP 18; TEMP 36.5; O2SAT 95
[2020-01-09 05:47] LABS: Chloride 101 mmol/L (98-107)
[2020-01-09 05:48] LABS: Potassium 4.1 mmoL/L (3.5-5.1); Sodium 136 mmol/L (136-145)
[2020-01-09 05:49] LABS: Basophils # 0.1 K/mm3 (0-0.2); Basophils % 0.9 % (0.1-2.0); Eosinophils # 0.2 K/mm3 (0.0-0.4); Eosinophils % 2.4 % (0.1-12.0); Hematocrit 30.6 % (42.0-52.0); Hemoglobin 10.5 g/dL (14.1-18.0); Lymphocytes # 1.4 K/mm3 (0.7-4.5); Lymphocytes % 17.3 % (10-50); Mean Corpuscular HGB Conc 34.3 g/dL (31.8-35.4); Mean Corpuscular Hemoglobin 29.8 pg (27.0-31.2); Mean Corpuscular Volume 86.8 fl (80-94); Mean Platelet Volume 7.9 fl (7.4-10.4); Monocytes # 0.5 K/mm3 (0.1-1.0); Monocytes % 6.3 % (1.7-9.3); Neutrophils # 5.7 K/mm3 (1.8-7.8); Neutrophils % 73.1 % (37.0-80.0); Platelet Count 257 K/mm3 (142-424); Red Blood Count 3.53 M/mm3 (4.60-6.20); Red Cell Distribution Width 19.8 % (11.5-17.5); White Blood Count 7.8 K/mm3 (4.8-10.8)
[2020-01-09 05:50] LABS: Blood Urea Nitrogen 23 mg/dl (9-20); Creatinine Clearance Estimated 93 mL/min (50-200); Estimated Glomerular Filt Rate 98 ml/min (>60); GFR (African American) 119 ML/MIN (>60)
[2020-01-09 05:51] LABS: Anion Gap 8.1 mEq/L (5-15); Calcium 8.6 mg/dl (8.4-10.2); Carbon Dioxide 31 mmol/L (22.0-30.0); Glucose 148 mg/dl (74-100)
[2020-01-09 05:53] LABS: INR 3.86 (0.9-1.1); Prothrombin Time 36.4 seconds (9.4-11.8)
--- NOTE | 2020-01-09 06:14 | HMH.GSCON ---
*Admission Date: 01/08/20 *Reason for consult:: Melena *History of present illness: This is a 59-year-old gentleman seen in consultation with the service of Dr. Pandya for possible endoscopic evaluation of gastrointestinal hemorrhage. He presented the emergency department yesterday with a 4-5-day history of dark stool and weakness. He states that he initially noted some somewhat bright blood in his stool over the weekend that got dark by Sunday . He has had increased shortness of breath, weakness, and sweating. He has also noticed some pain in the upper abdomen and episodes of dizziness and near syncope. He has a very complex past medical history including significant coronary artery disease. He is status post stent placement on December 23 of this year. At the time of initial evaluation he was on Coumadin for history of DVT and aspirin/Plavix secondary to recent stent. He has been seen by cardiology and his aspirin is currently being held. His Coumadin is also being held. He continues on Plavix. Review of Systems - Constitutional Denies chills - Eyes Denies discharge - ENT Denies difficulty swallowing - *Cardiovascular Reports lightheadedness - *Respiratory Denies cough - *Gastrointestinal Reports abdominal pain, Reports black, tarry stools, Denies vomiting blood - *Genitourinary Denies blood in urine - *Neurologic Reports unsteadiness, Reports dizziness, Reports headache(s), Reports weakness, Reports other (Near syncope), Denies localized weakness, Denies seizure-like activity [facility] History Medical History: Reports:: Asthma, Cancer (metastatic follicular thyroid carcinoma), Deep Vein Thrombosis, Diabetes Mellitus Type 1, Diabetes Mellitus Type 2, Heart Murmur, Hyperlipidemia, Hypertension, Peripheral Artery Disease, Pulmonary Embolism Denies:: MRSA, Seizures *Have you ever received a pneumonia vaccine?: Yes *Have you received a flu vaccine this season?: Yes Other Medical History: Reports: Anemia, Arthritis, Chemotherapy, Hoarseness, Hypothyroidism, Thyroid Disease, Other (osteomyelitis). Denies: Blood Transfusion Reaction Laterality Cases: Left: Other, Bilateral: Tonsillectomy Other Surgeries: Yes: Cancer Surgery, Cardiac Catheterization, Cholecystectomy, Thyroidectomy, Other Amputation: Yes (left bka) Fractures: No - *Social History Last grade of school completed: Some college Smoking Status: Former smoker Tobacco Type: cigarettes Alcohol Intake: never Alcohol Intake Frequency:: 0-2 drinks per day *Occupational Status:: retired, disabled Housing: house Household Members: spouse *Travel in the last 8 weeks: None Family Hx:: Adopted Meds Home Medications Medication Instructions Recorded Confirmed Type Acetaminophen [8 Hour 1,300 mg PO BID 07/01/17 01/08/20 History Acetaminophen] Calcium Carbonate [Calcium] 2,000 mg PO BID 07/01/17 01/08/20 History Insulin Detemir [Levemir 100 65 units SQ HS 07/01/17 01/08/20 History units/mL 10mL vial] Insulin Lispro [HumaLOG 100 20 units SQ ACHS 07/01/17 01/08/20 History units/mL 3mL vial (SSI)] Levothyroxine Sodium 250 mcg PO DAILY 07/01/17 01/08/20 History [Levothyroxine 137mcg (0.137mg) Tab] diphenhydrAMINE HCL [Benadryl 25mg 2 cap PO HSP PRN 07/01/17 01/08/20 History Capsule] hydroCHLOROthiazide [HCTZ 25mg 25 mg PO DAILY 07/01/17 01/08/20 History tab] Warfarin Sodium 7.5 mg PO DAILY 02/27/18 01/08/20 History Albuterol Sulfate [Proair Hfa 2 puffs IH Q4HP PRN 10/16/18 01/08/20 History 90mcg/puff Inh] Fluticasone Propionate [Flonase 2 puffs NS BID 10/16/18 01/08/20 History 50mcg nasal spray 16gm] lisinopriL [Lisinopril 40mg Tablet] 40 mg PO DAILY 10/17/18 01/08/20 History Atorvastatin Calcium [Lipitor 20mg 20 mg PO HS 10/17/19 01/08/20 History Tablet] Etodolac [Etodolac 500mg Tab] 500 mg PO BID 10/17/19 01/08/20 History Sennosides [Senna] 17.2 mg PO BID 10/17/19 01/08/20 History Trazodone HCl 100 mg PO HS 10/17/19
[2020-01-09 06:28] VITALS: BMI 47.8
--- NOTE | 2020-01-09 06:32 | PC.NURSE ---
A&O X4. PT RESTED WELL WITH EYES CLOSED THIS SHIFT. MILD C/O BACK PAIN T/O SHIFT, RATING AT MOST 8/10 ON PAIN SCALE. ADMINISTERED TYLENOL PER AUG X2. UPON REASSESSMENTS PT NOTED RESTING IN BED WITH EYES CLOSED WITH NO FURTHER COMPLAINTS. HGB NOTED AT 10.5, MD TO HOLD OFF ON PERFORMING EGD THIS AM. PT STATES DISCOMFORT WITH PALPATION TO RUQ. ADEQUATE URINE OUTPUT NOTED THIS SHIFT. PT AMB WELL WITHOUT SYNCOPE T/O SHIFT WITH STAFF STANDBY ASSIST. TOLERATES RA WELL WITH NO C/O SOA. VSS. REMAINS SAFE. CALL LIGHT WITHIN REACH. WILL CONTINUE TO MONITOR.
[2020-01-09 08:00] VITALS: BP 143/65; PULSE 72; RESP 19; TEMP 36.7; O2SAT 96
--- NOTE | 2020-01-09 08:37 | CT_ITS ---
PROCEDURE: CT HEAD/BRAIN WO/W CON CLINICAL INDICATION: headache, dizziness, metastatic thyroid cancer COMPARISON: [facility] CT HEAD W/O CONTRAST from 06/27/2017 TECHNIQUE: IV Contrast: 100ML OPITRAY 320 Axial images obtained. All CT scans at the facility use one or more dose reduction, viz: automated exposure control, ma/kV adjustment per patient size (including targeted exams where dose is matched to indication, i.e. head), or iterative reconstruction technique. FINDINGS: No midline shift, mass effect, intracranial hemorrhage, hydrocephalus, or extra-axial fluid collection is evident. No enhancing lesions evident. There is diffuse intracranial carotid artery calcification. The calvarium has an unremarkable appearance. No mastoid effusion . No sinus air-fluid level. There is some subcutaneous nodularity in the right parietal region at the vertex nonspecific. Please correlate with physical exam IMPRESSION: 1. No acute intracranial findings. No convincing evidence of metastatic disease. 2. Mild subcutaneous nodularity in the right parietal scalp of questionable clinical significance requiring correlation with physical exam Dictated by: Paul Grace MD 01/09/2020 18:54 Electronically signed by Paul Grace MD in [place] 01/09/2020 18:54
--- NOTE | 2020-01-09 08:38 | HMH.ACPN2 ---
<Destiny Farah - Last Filed: 01/09/20 08:38> Internal Medicine - PN: Subj *Date: 01/09/20 *Time: 08:38 Interval history: Patient states he was feeling well this morning until he got up and went to the bathroom. He states he felt fine going to the bathroom but when he sat back down in bed he got very dizzy and this is lasted for the last 15 to 20 minutes. He is still having some pain in his right upper quadrant that radiates into his back. He slept off and on throughout the night. Exam Vital signs and Labs for Last 24 Hours: Temp Pulse Resp BP Pulse Ox 98.0 F 72 19 143/65 H 96 01/09/20 08:00 01/09/20 08:00 01/09/20 08:00 01/09/20 08:00 01/09/20 08:00 Laboratory Results - last 24 hr 01/08/20 12:28: POC Glucose 140 H 01/08/20 16:34: POC Glucose 146 H 01/08/20 17:02: Hgb 10.2 L, Hct 30.5 L 01/08/20 22:01: POC Glucose 183 H 01/09/20 05:25: WBC 7.8, RBC 3.53 L, Hgb 10.5 L, Hct 30.6 L, MCV 86.8, MCH 29.8, MCHC 34.3, RDW 19.8 H, Plt Count 257, MPV 7.9, Neut % (Auto) 73.1, Lymph % (Auto) 17.3, [place] % (Auto) 6.3, Eos % (Auto) 2.4, Baso % (Auto) 0.9, Neut # (Auto) 5.7, Lymph # (Auto) 1.4, [place] # (Auto) 0.5, Eos # (Auto) 0.2, Baso # (Auto) 0.1 01/09/20 05:25: Sodium 136, Potassium 4.1, Chloride 101, Carbon Dioxide 31 H, Anion Gap 8.1, BUN 23 H D, Creatinine 0.80, Estimated Creat Clear 93, Estimated GFR 98, Est GFR ( Amer) 119, Glucose 148 H D, Calcium 8.6 01/09/20 05:25: PT 36.4 H, INR 3.86 H I & O for Last 24 hours: Intake & Output 01/06/20 01/07/20 01/08/20 01/09/20 11:59 11:59 11:59 11:59 Intake Total 1656 / 1656 Balance 1656 / 1656 Weight 381 lb 13.45 oz 384 lb 14.833 oz - Constitutional no acute distress - *Routine Respiratory Exam Present: CTA bilaterally - *Routine Cardiovascular Exam Present: RRR - *Routine Abdominal Exam Present: soft, normoactive bowel sounds, tenderness (RUQ) - *Routine Extremities Exam Present: edema (RLE). Absent: cyanosis, clubbing - *Routine Skin Exam Present: warm. 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alignant neoplasm of bone (5) Status post coronary artery stent placement Status: Chronic Category: Surgical Code(s): Z95.5 - Presence of coronary angioplasty implant and graft (6) Asthma Status: Chronic Qualifiers: Asthma severity: unspecified severity Asthma persistence: unspecified Asthma complication type: unspecified Qualified Code(s): J45.909 - Unspecified asthma, uncomplicated Category: Medical Code(s): J45.909 - Unspecified asthma, uncomplicated (7) COPD (chronic obstructive pulmonary disease) Status: Chronic Qualifiers: COPD type: unspecified COPD Qualified Code(s): J44.9 - Chronic obstructive pulmonary disease, unspecified Category: Medical Code(s): J44.9 - Chronic obstructive pulmonary disease, unspecified (8) Degenerative joint disease (DJD) of lumbar spine Status: Chronic Category: Medical Code(s): M47.816 - Spondylosis without myelopathy or radiculopathy, lumbar region (9) Ex-smoker Status: Chronic Category: Social Hx Code(s): Z87.891 - Personal history of nicotine dependence (10) HBP (high blood pressure) Status: Chronic Qualifiers: Hypertension type: essential hypertension Qualified Code(s): I10 - Essential (primary) hypertension Category: Medical
--- NOTE | 2020-01-09 09:08 | HMH.PNCARD ---
Subjective Date: 01/09/20 Time: 09:08 Principal diagnosis: dizziness, GI bleed Interval history: 59 yo WM in bed in NAD. No chest pain, pressure or tightness. Still with dizziness after sitting down from ambulating. Vitals taken by me manually yesterday before and after ambulating did not reveal any significant change in BP or HR to cause his dizziness. Telemetry has been placed this AM. Abd/Pelvis CT suggestive of new, lytic lesion in ilium. Pt states he has had lesions in that area on scans at . Exam Vital signs and Labs for Last 24 Hours: Temp Pulse Resp BP Pulse Ox 98.0 F 72 19 143/65 H 96 01/09/20 08:00 01/09/20 08:00 01/09/20 08:00 01/09/20 08:00 01/09/20 08:00 Laboratory Results - last 24 hr 01/08/20 12:28: POC Glucose 140 H 01/08/20 16:34: POC Glucose 146 H 01/08/20 17:02: Hgb 10.2 L, Hct 30.5 L 01/08/20 22:01: POC Glucose 183 H 01/09/20 05:25: WBC 7.8, RBC 3.53 L, Hgb 10.5 L, Hct 30.6 L, MCV 86.8, MCH 29.8, MCHC 34.3, RDW 19.8 H, Plt Count 257, MPV 7.9, Neut % (Auto) 73.1, Lymph % (Auto) 17.3, [place] % (Auto) 6.3, Eos % (Auto) 2.4, Baso % (Auto) 0.9, Neut # (Auto) 5.7, Lymph # (Auto) 1.4, [place] # (Auto) 0.5, Eos # (Auto) 0.2, Baso # (Auto) 0.1 01/09/20 05:25: Sodium 136, Potassium 4.1, Chloride 101, Carbon Dioxide 31 H, Anion Gap 8.1, BUN 23 H D, Creatinine 0.80, Estimated Creat Clear 93, Estimated GFR 98, Est GFR ( Amer) 119, Glucose 148 H D, Calcium 8.6 01/09/20 05:25: PT 36.4 H, INR 3.86 H I & O for Last 24 hours: Intake & Output 01/06/20 01/07/20 01/08/20 01/09/20 11:59 11:59 11:59 11:59 Intake Total 1656 / 1656 Balance 1656 / 1656 Weight 381 lb 13.45 oz 384 lb 14.833 oz - *Routine HEENT Exam Head: Present: normocephalic Eye: Present: EOMI, PERRL ENT: Present: mucous membranes moist - *Routine Respiratory Exam Present: CTA bilaterally. Absent: accessory muscle use, rales, rhonchi, wheezes - *Routine Cardiovascular Exam Present: RRR. Absent: murmur, gallop, rubs - *Routine Extremities Exam Present: edema. 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 Status: Chronic Current Visit: Yes (5) Status post coronary artery stent placement Status: Chronic Current Visit: Yes (6) Asthma Status: Chronic Current Visit: No (7) COPD (chronic obstructive pulmonary disease) Status: Chronic Current Visit: No (8) Degenerative joint disease (DJD) of lumbar spine Status: Chronic Current Visit: No (9) Ex-smoker Status: Chronic Current Visit: No (10) HBP (high blood pressure) Status: Chronic Current Visit: No (11) History of DVT (deep vein thrombosis) Status: Chronic Current Visit: No (12) History of left below knee amputation Status: Chronic Current Visit: No (13) History of mandibular surgery Status: Chronic Current Visit: No (14) History of pulmonary embolus (PE) Status: Chronic Current Visit: No (15) Lung metastases Status: Chronic Current Visit: No (16) Type 2 diabetes mellitus Status: Chronic Current Visit: No Assessment and Plan for All Diagnoses:: 1. Dizziness/near syncope without change in vital signs yesterday. Monitor on telemetry and check orthostatic vitals today. CT of the head is ordered to evaluate for new metastatic lesion. 2. Coronary artery disease with recent coronary artery stenting last month, due to GI bleed aspirin has been discontinued. Plavix should be continued indefinitely. 3. Remote history of DVTs and PEs, Coumadin being held per PCP and oncology. 4. Metastatic thyroid cancer, status post iodine ablation now on oral chemothe
[2020-01-09 10:59] LABS: POC Glucose,Bedside 288 (70-110)
--- NOTE | 2020-01-09 11:02 | HMH.PHAINT ---
MEDICATION RECONCILIATION COMPLETED ON PATIENT USING EXTERNAL FILL HISTORY FROM PHARMACY AND LIST FROM PHYSICIAN'S OFFICE. -DEYA MENDOZAD
[2020-01-09 12:43] VITALS: PULSE 70
[2020-01-09 13:46] VITALS: BMI 47.9
[2020-01-09 15:54] LABS: POC Glucose,Bedside 169 (70-110)
[2020-01-09 16:00] VITALS: BP 118/53; PULSE 63; RESP 19; TEMP 36.6; O2SAT 97
[2020-01-09 16:39] LABS: POC Glucose,Bedside 151 (70-110)
--- NOTE | 2020-01-09 17:10 | PC.NURSE ---
NO ACUTE CHANGES THIS SHIFT. PT HAS TOLERATED CLEAR LIQUID DIET WITHOUT PROBLEM. PT DENIES N/V/D. NO BM THIS SHIFT. PT HAS AMBULATED INDEPENDENTLY IN ROOM WITHOUT PROBLEM. VSS. NO DISTRESS NOTED. SAFETY MEASURES IN PLACE, WILL CONTINUE TO MONITOR
[2020-01-09 20:00] VITALS: BP 127/64; PULSE 60; PULSE 61; RESP 18; TEMP 36.8; O2SAT 97
[2020-01-09 21:47] LABS: POC Glucose,Bedside 185 (70-110)
[2020-01-10] VITALS (8 sets, daily range): BP systolic 89–137; BP diastolic 45–71; PULSE 60–80; RESP 16–20; TEMP 36.4–37.1; O2SAT 94–95; BMI 48.2
--- NOTE | 2020-01-10 04:21 | PC.NURSE ---
A&OX4 Pt medicated per MAR with PRN sleep aid. Pt has no C/O of N/V/D this shift. 20G RAC with NS @ 100. Pt ambulated independently to BR and within room. Pt has tolerated ADA diet and has rested quietly this shift
[2020-01-10 05:48] LABS: POC Glucose,Bedside 143 (70-110)
[2020-01-10 07:31] LABS: Hematocrit 29.9 % (42.0-52.0); Hemoglobin 9.8 g/dL (14.1-18.0)
[2020-01-10 07:36] LABS: Chloride 102 mmol/L (98-107)
[2020-01-10 07:37] LABS: Potassium 4.2 mmoL/L (3.5-5.1); Sodium 138 mmol/L (136-145)
[2020-01-10 07:39] LABS: Alanine Aminotransferase 31 U/L (12-78); Albumin Level 3.5 g/dl (3.5-5.0); Albumin/Globulin Ratio 1.3 (1.1-1.8); Alkaline Phosphatase 83 U/L (38-126); Anion Gap 8.2 mEq/L (5-15); Aspartate Amino Transferase 29 U/L (17-59); Bilirubin,Total 0.5 mg/dl (0.2-1.3); Blood Urea Nitrogen 13 mg/dl (9-20); Carbon Dioxide 32 mmol/L (22.0-30.0); Creatinine Clearance Estimated 93 mL/min (50-200); Estimated Glomerular Filt Rate 98 ml/min (>60); GFR (African American) 119 ML/MIN (>60); Globulin 2.8 g/dL (1.3-3.2); Glucose 169 mg/dl (74-100); Total Protein,Serum 6.3 g/dl (6.3-8.2)
[2020-01-10 07:40] LABS: INR 2.75 (0.9-1.1); Prothrombin Time 26.5 seconds (9.4-11.8)
--- NOTE | 2020-01-10 08:32 | HMH.ACPN2 ---
Internal Medicine - PN: Subj *Date: 01/10/20 *Time: 08:32 Interval history: He rested some better last night and feels a little better this morning. His complaints of dizziness have improved but not completely resolved. CT scan of the head was unremarkable. His diet has been advanced and he is tolerating this well. The right upper quadrant pain has improved but he is having more right-sided rib pain related to the known metastatic rib lesion. He thinks the hospital bed is aggravating this. Exam Vital signs and Labs for Last 24 Hours: Temp Pulse Resp BP Pulse Ox 97.6 F 62 18 111/45 L 94 L 01/10/20 05:50 01/10/20 05:50 01/10/20 05:50 01/10/20 05:50 01/10/20 05:50 Laboratory Results - last 24 hr 01/09/20 05:31: POC Glucose 169 H 01/09/20 10:47: POC Glucose 288 H 01/09/20 16:28: POC Glucose 151 H 01/09/20 20:12: POC Glucose 185 H 01/10/20 05:37: POC Glucose 143 H 01/10/20 06:30: Hgb 9.8 L, Hct 29.9 L 01/10/20 06:30: PT 26.5 H, INR 2.75 H 01/10/20 06:30: Sodium 138, Potassium 4.2, Chloride 102, Carbon Dioxide 32 H, Anion Gap 8.2, BUN 13 D, Creatinine 0.80, Estimated Creat Clear 93, Estimated GFR 98, Est GFR ( Amer) 119, Glucose 169 H, Calcium 8.0 L, Total Bilirubin 0.5, AST 29, ALT 31, Alkaline Phosphatase 83, Total Protein 6.3, Albumin 3.5, Globulin 2.8, Albumin/Globulin Ratio 1.3 I & O for Last 24 hours: Intake & Output 01/07/20 01/08/20 01/09/20 01/10/20 11:59 11:59 11:59 11:59 Intake Total 2015 1800 / 1800 Output Total 650 / 650 Balance 2015 1150 / 1150 Weight 381 lb 13.45 oz 384 lb 14.833 oz 387 lb 12.69 oz Narrative: He is sitting up in the chair and appears in no acute distress. Color is slightly pale. Lungs are clear to auscultation. Heart is distant but regular. Abdomen is obese, soft, nondistended with mild right upper quadrant tenderness. 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 Current visit: Yes Status: Chronic Category: Medical Code(s): C73 - Malignant neoplasm of thyroid gland; C79.51 - Secondary malignant neoplasm of bone (5) Status post coronary artery stent placement Current visit: Yes Status: Chronic Category: Surgical Code(s): Z95.5 - Presence of coronary angioplasty implant and graft (6) Asthma Current visit: No Status: Chronic Qualifiers: Asthma severity: unspecified severity Asthma persistence: unspecified Asthma complication type: unspecified Qualified Code(s): J45.909 - Unspecified asthma, uncomplicated Category: Medical Code(s): J45.909 - Unspecified asthma, uncomplicated (7) COPD (chronic obstructive pulmonary disease) Current visit: No Status: Chronic Qualifiers: COPD type: unspecified COPD Qualified Code(s): J44.9 - Chronic obstructive pulmonary disease, unspecified Category: Medical Code(s): J44.9 - Chronic obstructive pulmonary disease, unspecified (8) Degenerative joint disease (DJD) of lumbar spine Current visit: No Status: Chronic Category: Medical Code(s): M47.816 - Spondylosis without myelopathy or radiculopathy, lumbar region (9) Ex-smoker Current visit: No Status: Chronic Category: Social Hx Code(s): Z87.891 - Personal history of nicotine dependence (10) HBP (high blood pressure) Current visit: No Status: Chronic Qualifiers: Hypertension type: essential hypertension Qualified Code(s): I10 - Essential (primary) hypertension Category: Medical Code(s): I10 -
[2020-01-10 11:32] LABS: POC Glucose,Bedside 264 (70-110)
--- NOTE | 2020-01-10 12:41 | HMH.GSPN ---
Subjective Patient reports: no new complaints Narrative: Patient states that he still feels somewhat weak. He is tolerating clear liquids. He has not had any additional bowel movements but did have bowel movement consistent with melena after admission. Has not shown any appreciable drop in hemoglobin/hematocrit Exam Vital signs and Labs for Last 24 Hours: Temp Pulse Resp BP Pulse Ox 98.7 F 67 20 121/70 94 L 01/10/20 08:00 01/10/20 08:00 01/10/20 08:00 01/10/20 08:00 01/10/20 08:00 Laboratory Results - last 24 hr 01/09/20 05:31: POC Glucose 169 H 01/09/20 16:28: POC Glucose 151 H 01/09/20 20:12: POC Glucose 185 H 01/10/20 05:37: POC Glucose 143 H 01/10/20 06:30: Hgb 9.8 L, Hct 29.9 L 01/10/20 06:30: PT 26.5 H, INR 2.75 H 01/10/20 06:30: Sodium 138, Potassium 4.2, Chloride 102, Carbon Dioxide 32 H, Anion Gap 8.2, BUN 13 D, Creatinine 0.80, Estimated Creat Clear 93, Estimated GFR 98, Est GFR ( Amer) 119, Glucose 169 H, Calcium 8.0 L, Total Bilirubin 0.5, AST 29, ALT 31, Alkaline Phosphatase 83, Total Protein 6.3, Albumin 3.5, Globulin 2.8, Albumin/Globulin Ratio 1.3 01/10/20 11:16: POC Glucose 264 H I & O for Last 24 hours: Intake & Output 01/08/20 01/09/20 01/10/20 01/11/20 11:59 11:59 11:59 11:59 Intake Total 2015 1900 / 1900 Output Total 650 / 650 Balance 2015 1250 / 1250 Weight 381 lb 13.45 oz 384 lb 14.833 oz 387 lb 12.69 oz - *Routine Abdominal Exam Present: soft Progress Note: A&P (1) Near syncope Status: Acute Current Visit: Yes (2) Upper gastrointestinal bleed Status: Acute Current Visit: Yes (3) Coronary artery disease Status: Chronic Current Visit: Yes (4) 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 Status: Chronic Current Visit: Yes (5) Status post coronary artery stent placement Status: Chronic Current Visit: Yes (6) Asthma Status: Chronic Current Visit: No (7) COPD (chronic obstructive pulmonary disease) Status: Chronic Current Visit: No (8) Degenerative joint disease (DJD) of lumbar spine Status: Chronic Current Visit: No (9) Ex-smoker Status: Chronic Current Visit: No (10) HBP (high blood pressure) Status: Chronic Current Visit: No (11) History of DVT (deep vein thrombosis) Status: Chronic Current Visit: No (12) History of left below knee amputation Status: Chronic Current Visit: No (13) History of mandibular surgery Status: Chronic Current Visit: No (14) History of pulmonary embolus (PE) Status: Chronic Current Visit: No (15) Lung metastases Status: Chronic Current Visit: No (16) Type 2 diabetes mellitus Status: Chronic Current Visit: No Assessment and Plan for All Diagnoses:: Patient still has elevated INR of 2.8. No evidence of significant clinical bleeding and no evidence of any appreciable drop in hemoglobin hematocrit. Recommend continuation of empiric therapy for possible upper GI blood loss etiology. I will go ahead and advance his diet but place him on an n.p.o. after midnight status in case he shows more appreciable decrease in hemoglobin and hematocrit with normalization of coagulation profile. However, most likely, tentative plan would be early outpatient follow-up for panendoscopy.
[2020-01-10 17:01] LABS: POC Glucose,Bedside 185 (70-110)
--- NOTE | 2020-01-10 17:06 | PC.NURSE ---
Pt has been pleasant and cooperative this shift. A&O X4. Pt has had multiple complaints of pain and has been medicated with Tylenol per MAR. No complaints of SOA. Lungs CTA. Pt is on room air with sats. >95%. Pt ambulates independently with a LLE prosthesis to/from the bathroom and throughout the room. Pt has sat up in the chair for the majority of the shift. Pt's urine is noted to be clear and yellow. No BM this shift. Skin is c/d/i with no edema noted. 20 G peripheral IV in the RT AC is patent and SL. IVF were DC'd this shift. FSBS results have been 264 and 185, both of which have required insulin coverage per sliding scale. VSS. Call light within reach. Will continue to monitor.
[2020-01-10 21:08] LABS: POC Glucose,Bedside 231 (70-110)
[2020-01-11] VITALS (7 sets, daily range): BP systolic 106–130; BP diastolic 60–68; PULSE 50–73; RESP 18; TEMP 36.7–36.8; O2SAT 95–97; BMI 47.9
[2020-01-11 05:53] LABS: POC Glucose,Bedside 141 (70-110)
[2020-01-11 07:29] LABS: Basophils % 0.6 % (0.1-2.0); Eosinophils # 0.2 K/mm3 (0.0-0.4); Eosinophils % 2.3 % (0.1-12.0); Hematocrit 29.9 % (42.0-52.0); Hemoglobin 9.8 g/dL (14.1-18.0); Lymphocytes # 1.1 K/mm3 (0.7-4.5); Lymphocytes % 16.8 % (10-50); Mean Corpuscular HGB Conc 32.8 g/dL (31.8-35.4); Mean Corpuscular Hemoglobin 29.4 pg (27.0-31.2); Mean Corpuscular Volume 89.7 fl (80-94); Monocytes # 0.3 K/mm3 (0.1-1.0); Monocytes % 4.8 % (1.7-9.3); Neutrophils % 75.5 % (37.0-80.0); Platelet Count 273 K/mm3 (142-424); Red Blood Count 3.33 M/mm3 (4.60-6.20); Red Cell Distribution Width 20.3 % (11.5-17.5); White Blood Count 6.7 K/mm3 (4.8-10.8)
[2020-01-11 07:40] LABS: Prothrombin Time 14.1 seconds (9.4-11.8)
--- NOTE | 2020-01-11 08:42 | HMH.ACPN2 ---
Internal Medicine - PN: Subj *Date: 01/11/20 *Time: 09:04 Interval history: I feel better. Tolerating diet. Small BM last night - still black. CC is low back pain related to DJD of spine. Worse since being off Etodolac. Also c/o swelling in hands and feet. Exam Vital signs and Labs for Last 24 Hours: Temp Pulse Resp BP Pulse Ox 98.0 F 67 18 126/68 96 01/11/20 07:52 01/11/20 07:52 01/11/20 07:52 01/11/20 07:52 01/11/20 07:52 Laboratory Results - last 24 hr 01/10/20 11:16: POC Glucose 264 H 01/10/20 16:48: POC Glucose 185 H 01/10/20 21:01: POC Glucose 231 H 01/11/20 05:44: POC Glucose 141 H 01/11/20 06:21: WBC 6.7, RBC 3.33 L, Hgb 9.8 L, Hct 29.9 L, MCV 89.7, MCH 29.4, MCHC 32.8, RDW 20.3 H, Plt Count 273, MPV 8.0, Neut % (Auto) 75.5, Lymph % (Auto) 16.8, [place] % (Auto) 4.8, Eos % (Auto) 2.3, Baso % (Auto) 0.6, Neut # (Auto) 5.0, Lymph # (Auto) 1.1, [place] # (Auto) 0.3, Eos # (Auto) 0.2, Baso # (Auto) 0.0 01/11/20 06:21: PT 14.1 H, INR 1.40 H I & O for Last 24 hours: Intake & Output 01/08/20 01/09/20 01/10/20 01/11/20 11:59 11:59 11:59 11:59 Intake Total 2015 1900 / 1900 1340 / 1340 Output Total 650 / 650 1450 / 1450 Balance 2015 1250 / 1250 -110 / -110 Weight 381 lb 13.45 oz 384 lb 14.833 oz 387 lb 12.69 oz 385 lb 12.943 oz Narrative: He is sitting up in the chair eating breakfast. No acute distress. Lungs are clear. Abdomen is obese, soft, nondistended. No tenderness. Extremities show trace edema of his hands and right leg. 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 Current visit: Yes Status: Chronic Category: Medical Code(s): C73 - Malignant neoplasm of thyroid gland; C79.51 - Secondary malignant neoplasm of bone (5) Status post coronary artery stent placement Current visit: Yes Status: Chronic Category: Surgical Code(s): Z95.5 - Presence of coronary angioplasty implant and graft (6) Asthma Current visit: No Status: Chronic Qualifiers: Asthma severity: unspecified severity Asthma persistence: unspecified Asthma complication type: unspecified Qualified Code(s): J45.909 - Unspecified asthma, uncomplicated Category: Medical Code(s): J45.909 - Unspecified asthma, uncomplicated (7) COPD (chronic obstructive pulmonary disease) Current visit: No Status: Chronic Qualifiers: COPD type: unspecified COPD Qualified Code(s): J44.9 - Chronic obstructive pulmonary disease, unspecified Category: Medical Code(s): J44.9 - Chronic obstructive pulmonary disease, unspecified (8) Degenerative joint disease (DJD) of lumbar spine Current visit: No Status: Chronic Category: Medical Code(s): M47.816 - Spondylosis without myelopathy or radiculopathy, lumbar region (9) Ex-smoker Current visit: No Status: Chronic Category: Social Hx Code(s): Z87.891 - Personal history of nicotine dependence (10) HBP (high blood pressure) Current visit: No Status: Chronic Qualifiers: Hypertension type: essential hypertension Qualified Code(s): I10 - Essential (primary) hypertension Category: Medical Code(s): I10 - Essential (primary) hypertension (11) History of DVT (deep vein thrombosis) Current visit: No Status: Chronic Category: Medical Code(s): Z86.718 - Personal history of other venous thrombosis and embolism (12) History of left below knee amputation Current visit: No Status: Chronic Category: Medical Code(s): Z89.512
[2020-01-11 12:19] LABS: POC Glucose,Bedside 232 (70-110)
[2020-01-11 16:50] LABS: POC Glucose,Bedside 241 (70-110)
--- NOTE | 2020-01-11 17:47 | PC.NURSE ---
Pt has been pleasant and cooperative this shift. A&O X4. Pt has had a couple complaints of pain and has been medicated with Tylenol per MAR. No complaints of SOA. Lungs CTA. Pt is on room air with sats. >95%. Pt ambulates independently with a LLE prosthesis to/from the bathroom and throughout the room. Pt has sat up in the chair for the majority of the shift. Pt's urine is noted to be clear and yellow. No BM this shift. Skin is c/d/i with no edema noted. 20 G peripheral IV in the RT AC is patent and SL. FSBS results have been 232 and 241, both of which have required insulin coverage per sliding scale. VSS. Call light within reach. Will continue to monitor.
[2020-01-11 20:51] LABS: POC Glucose,Bedside 233 (70-110)
[2020-01-12] VITALS: BP 136/69; PULSE 60; PULSE 76; RESP 16; TEMP 36.7; O2SAT 90
--- NOTE | 2020-01-12 00:24 | PC.NURSE ---
PT HAS DONE WELL THUS FAR IN SHIFT. NO COMPLAINTS VOICED. PT REPORTED A BM PRIOR TO MY SHIFT, STATED IT WAS WHEEL FITTER IN COLOR THAN PREVIOUS STOOLS PT AMBULATES IN ROOM, TOLERATES WELL. VSS THUS FAR.
--- NOTE | 2020-01-12 01:15 | PC.NURSE ---
Report received from Taylor Oquendo RN.
[2020-01-12 04:00] VITALS: BP 132/58; PULSE 62; PULSE 70; RESP 16; TEMP 36.5; O2SAT 94
--- NOTE | 2020-01-12 05:13 | PC.NURSE ---
Assessment completed. Pt. A&O X4. Heart at regular rate, Lungs CTA, BS present x4. Pt. reports back pain, refuses pain medication at this time. Pt. denies SOA. No edema noted, FSBS at 224Pt. to receive 4 units at 06:00. Votrient given at 05:05 as pt. is to take medication 2 hours prior to meal, aware, per report from previous nurse. Pt. denies needs at this time, will continue to monitor.
[2020-01-12 05:17] LABS: POC Glucose,Bedside 224 (70-110)
[2020-01-12 05:47] VITALS: BMI 48.4
[2020-01-12 06:12] LABS: Basophils % 0.6 % (0.1-2.0); Eosinophils # 0.2 K/mm3 (0.0-0.4); Hematocrit 29.9 % (42.0-52.0); Hemoglobin 9.9 g/dL (14.1-18.0); Lymphocytes # 1.3 K/mm3 (0.7-4.5); Lymphocytes % 18.6 % (10-50); Mean Corpuscular HGB Conc 33.2 g/dL (31.8-35.4); Mean Corpuscular Hemoglobin 29.9 pg (27.0-31.2); Mean Platelet Volume 7.8 fl (7.4-10.4); Monocytes # 0.4 K/mm3 (0.1-1.0); Monocytes % 5.7 % (1.7-9.3); Neutrophils # 4.9 K/mm3 (1.8-7.8); Neutrophils % 72.1 % (37.0-80.0); Platelet Count 267 K/mm3 (142-424); Red Blood Count 3.33 M/mm3 (4.60-6.20); Red Cell Distribution Width 20.7 % (11.5-17.5); White Blood Count 6.8 K/mm3 (4.8-10.8)
[2020-01-12 06:32] LABS: INR 1.13 (0.9-1.1); Prothrombin Time 11.5 seconds (9.4-11.8)
--- NOTE | 2020-01-12 07:24 | PC.NURSE ---
report given to KELLY Victor RN
[2020-01-12 08:00] VITALS: BP 117/70; PULSE 60; PULSE 66; RESP 19; TEMP 36.9; O2SAT 96
--- NOTE | 2020-01-12 08:07 | HMH.ACPN2 ---
<Suzie Holland - Last Filed: 01/12/20 08:13> Internal Medicine - PN: Subj *Date: 01/12/20 *Time: 08:14 Interval history: Pt is sitting up in the chair and reports he feels better than he has during this hospitalization. He denies any abdominal pain or nausea/vomiting. He has been tolerating his diet well and rested well overnight. He notes his stools are no longer dark in color. Exam Vital signs and Labs for Last 24 Hours: Temp Pulse Resp BP Pulse Ox 97.7 F 62 16 132/58 L 94 L 01/12/20 04:00 01/12/20 04:00 01/12/20 04:00 01/12/20 04:00 01/12/20 04:00 Laboratory Results - last 24 hr 01/11/20 12:07: POC Glucose 232 H 01/11/20 16:22: POC Glucose 241 H 01/11/20 20:32: POC Glucose 233 H 01/12/20 05:08: POC Glucose 224 H 01/12/20 05:34: PT 11.5, INR 1.13 H 01/12/20 05:34: WBC 6.8, RBC 3.33 L, Hgb 9.9 L, Hct 29.9 L, MCV 90.0, MCH 29.9, MCHC 33.2, RDW 20.7 H, Plt Count 267, MPV 7.8, Neut % (Auto) 72.1, Lymph % (Auto) 18.6, [place] % (Auto) 5.7, Eos % (Auto) 3.0, Baso % (Auto) 0.6, Neut # (Auto) 4.9, Lymph # (Auto) 1.3, [place] # (Auto) 0.4, Eos # (Auto) 0.2, Baso # (Auto) 0.0 I & O for Last 24 hours: Intake & Output 01/09/20 01/10/20 01/11/20 01/12/20 11:59 11:59 11:59 11:59 Intake Total 2015 1900 / 1900 1340 / 1340 1220 / 1220 Output Total 650 / 650 1450 / 1450 850 / 850 Balance 2015 1250 / 1250 -110 / -110 370 / 370 Weight 384 lb 14.833 oz 387 lb 12.69 oz 385 lb 12.943 oz 389 lb 8.909 oz - Constitutional no acute distress - *Routine HEENT Exam Head: Present: normocephalic ENT: Present: mucous membranes moist - *Routine Respiratory Exam Present: CTA bilaterally - *Routine Cardiovascular Exam Present: RRR - *Routine Abdominal Exam Present: soft, normoactive bowel sounds, obese. Absent: tenderness, distended, firm, rigid - *Routine Extremities Exam Comments: no RLE edema; LLE prosthesis - *Routine Neurological Exam Present: alert, oriented X3, moving all extremities, normal speech Assessment and Plan (1) Near syncope Current visit: Yes Status: Acute Category: Medical Code(s): R55 - Syncope and collapse (2) Upper gastrointestinal bleed Current visit: Yes Status: Acute Category: Medical Code(s): K92.2 - Gastrointestinal hemorrhage, unspecified (3) Coronary artery disease Current visit: Yes Status: Chronic Category: Medical Code(s): I25.10 - Atherosclerotic heart disease of [place] coronary artery without angina pectoris (4) 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 Current visit: Yes Status: Chronic Category: Medical Code(s): C73 - Malignant neoplasm of thyroid gland; C79.51 - Secondary malignant neoplasm of bone (5) Status post coronary artery stent placement Current visit: Yes Status: Chronic Category: Surgical Code(s): Z95.5 - Presence of coronary angioplasty implant and graft (6) Asthma Current visit: No Status: Chronic Qualifiers: Asthma severity: unspecified severity Asthma persistence: unspecified Asthma complication type: unspecified Qualified Code(s): J45.909 - Unspecified asthma, uncomplicated Category: Medical Code(s): J45.909 - Unspecified asthma, uncomplicated (7) COPD (chronic obstructive pulmonary disease) Current visit: No Status: Chronic Qualifiers: COPD type: unspecified COPD Qualified Code(s): J44.9 - Chronic obstructive pulmonary disease, unspecified Category: Medical Code(s): J44.9 - Chronic obstructive pulmonary disease, unspecified (8) Degenerative joint disease (DJD) of lumbar spine Current visit: No Status: Chronic Category: Medical Code(s): M47.816 - Spondylosis without myelopathy or radiculopathy, lumbar region (9) Ex-smoker Current visit: No Status: Chronic Category: Social Hx Code(s): Z87.891 - Personal history of nicotine dependence (10) HBP (high blood pressure) Current visit: No Status: Chronic Qualifiers: Hypertension
--- NOTE | 2020-01-12 08:27 | HMH.DCSUM ---
General - General Admission date:: 01/08/20 <Prem Pandya - 01/21/20 13:27> 01/08/20 <SkylerSuzie - 01/12/20 08:32> Discharge date: 01/12/20 <SkylerButch orellanaa - 01/12/20 08:32> HPI HPI: Mr. Worthy was a 59-year-old male with a complicated medical history. He had a history of type 2 diabetes, hypertension, asthma, arthritis, osteomyelitis status post amputation of the left lower leg, and metastatic follicular thyroid carcinoma. He was currently followed by Dr. Soliman, his oncologist. The patient stated that he had a cardiac stent placed by Dr. Liu on December 24, 2019. After stenting, his Bystolic was changed to labetalol and he continued to feel well. He stated he had a follow-up in the [facility] office approximately a week and a half before this admission and his labetalol was discontinued and he was started on carvedilol. The patient stated he had never been able to tolerate carvedilol and he felt horrible. He was unable to breathe and was dizzy and felt like he was going to faint. He called the office and the carvedilol was changed to bisoprolol. He stated this is also caused the same type of symptoms. He requested a cardiology consult and to be placed back on his Bystolic. He stated all other beta-blockers seem to exacerbate his asthma. Over the weekend, he began noticing some blood that was bright red in his stool. By the day of admission, his stools were dark black. He became weak, began sweating, and was extremely short of breath. He had been having some pain in his right upper quadrant and had been very dizzy and was having near syncopal episodes. He presented to the emergency room and was found to have blood in his stool. He was admitted for further evaluation and treatment. <Skyler,Suzie - 01/12/20 08:32> Hospital Course Hospital Course: He was started on PPI and seen by cardiology. His prior Bystolic dose was resumed and his Norvasc dose was increased. A CT of the abdomen was ordered. His ASA and etodolac were discontinued and Coumadin was held. His Plavix was continued due to recent coronary stenting. The case was discussed with Dr. Tovar with plan to follow with serial H&H's and proceed with EGD if hemoglobin dropped below 9. The following day, his hemoglobin remained stable. He was seen by surgery and it was felt that he should continue to be monitored closely for ongoing hemorrhage. CT of the abdomen showed no acute abdominal or pelvic findings although it did note a new lytic lesion of the left ilium consistent with metastatic disease and bibasilar pulmonary nodules suggestive of metastatic disease. He complained of some dizziness in the absence of orthostasis and a head CT was ordered. By 01/10/2020, he remained hemodynamically stable. His dizziness had improved and head CT was unremarkable. His INR was coming down. He was tolerating clears and his diet was advanced. His IVF were discontinued. His hemoglobin remained stable into 01/11/2020. His levemir was resumed as he was tolerating his diet well. His INR was 1.4 and his coumadin was restarted at a low dose to maintain INR close to 2.0. By the morning of 01/12/2020, pt was felt to be stable for discharge home with early f/u for panendoscopy. <Suzie Holland - 01/12/20 09:38> Objective Vital signs: Temp Pulse Resp BP Pulse Ox 98.5 F 66 19 117/70 96 01/12/20 08:00 01/12/20 08:00 01/12/20 08:00 01/12/20 08:00 01/12/20 08:00 <Prem Pandya - 01/21/20 13:27> Temp Pulse Resp BP Pulse Ox 97.7 F 62 16 132/58 L 94 L 01/12/20 04:00 01/12/20 04:00 01/12/20 04:00 01/12/20 04:00 01/12/20 04:00 <Suzie Holland - 01/12/20 08:32> no acute distress <Suzie Holland 01/12/20 09:38> - *Routine Respiratory Exam Present: CTA bilaterally <Suzie Holland 01/12/20 09:38> - *Routine Cardiovascular Exam Present: RRR <Suzie Holland 01/12/20 09:38> - *Routine Abdominal Exam Present: soft, normoactive bowel sound
--- NOTE | 2020-01-12 11:26 | HMH.PHAINT ---
DISCHARGE MEDICATIONS/COUMADIN COUNSELING-DISCUSSED DISCHARGE MEDICATIONS WITH PATIENT. ALSO DISCUSSED COUMADIN WITH PATIENT.
== END 2020-01-12 10:33 | disposition home or self-care (01) ==
LOC: ER 07:04 → 2ND 08:33
PROVIDERS: Surgery; Admitting Provider Family Medicine; Emergency Provider Emergency Medicine; PCP Family Medicine; Visit Provider Family Medicine
DX: K92.2 Gastrointestinal hemorrhage, unspecified (principal); J45.909 Unspecified asthma, uncomplicated; C78.01 Secondary malignant neoplasm of right lung; C73 Malignant neoplasm of thyroid gland; C79.51 Secondary malignant neoplasm of bone; E03.9 Hypothyroidism, unspecified; E11.9 Type 2 diabetes mellitus without complications; M47.16 Other spondylosis with myelopathy, lumbar region; I25.10 Atherosclerotic heart disease of native coronary artery without angina pectoris; Z86.718 Personal history of other venous thrombosis and embolism; Z88.8 Allergy status to other drugs, medicaments and biological substances; Z88.1 Allergy status to other antibiotic agents; Z79.4 Long term (current) use of insulin; Z79.51 Long term (current) use of inhaled steroids; Z79.01 Long term (current) use of anticoagulants; Z79.899 Other long term (current) drug therapy
CPT/HCPCS: 36415; 70470; 71045; 74176; 80048; 80053; 80076; 82272; 82962; 83880; 84484; 85014; 85018; 85025; 85610; 85730; 86328; 93005; 99284; G0328; G0378; J2405; Q9967

== ENCOUNTER 2020-01-13 10:45 | Emergency (ER) | payer BC, SELFPAY ==
[2020-01-13 10:43] VITALS: BP 149/79; BP 176/111; PULSE 65; PULSE 90; RESP 18; TEMP 36.6; O2SAT 98; O2SAT 99; BMI 39.5
--- NOTE | 2020-01-13 10:52 | HMH.EDGENADL ---
ED Disposition Clinical Impression: Dizziness, Involuntary movements Disposition: Home, Self-Care Condition on Discharge: Good Instructions: DI for Dizziness-Nonvertigo Additional Instructions: Follow-up with Dr. Carpenter for neurological evaluation. Follow-up with Dr. Pandya in the office. Return to the emergency room for worsening symptoms. Referrals: Prem Pandya MD [Primary Care Provider] - Kellie Carpenter MD [Staff Physician] - - Critical Care Critical Care Time: No Attestation: On 01/13/20, the high probability of a clinically significant, sudden or life threatening deterioration of the following system(s) required my full and direct attention, intervention and personal management. The time I documented below is in addition to time spent performing reported procedures but includes the following listed in this critical care notation. Medical Decision Making - Medical Records Medical records reviewed: Yes: I reviewed the patient's medical records. - [place] Inquiry Pt receiving controlled substance: No Vital Signs: 01/13/20 10:43 01/13/20 11:19 01/13/20 12:09 Temperature 97.9 F Temperature Source Oral Pulse Rate Pulse Rate [Radial] 90 62 98 H Respiratory Rate 18 22 22 Blood Pressure Blood Pressure [Right Arm] 176/111 H 142/67 H 173/96 H Blood Pressure Mean [Right Arm] 132 92 121 Blood Pressure Source Blood Pressure Source [Right Arm] Automatic Cuff Automatic Cuff Blood Pressure Position Blood Pressure Position [Right Arm] Supine Sitting Sitting 02 Sat by Pulse Oximetry 99 94 L 98 Oxygen Delivery Method Room Air Room Air Room Air 01/13/20 13:03 01/13/20 13:43 Temperature 98.1 F Temperature Source Oral Pulse Rate 62 Pulse Rate [Radial] 62 Respiratory Rate 22 Blood Pressure 137/71 Blood Pressure [Right Arm] 137/71 Blood Pressure Mean [Right Arm] 93 Blood Pressure Source Automatic Cuff Blood Pressure Source [Right Arm] Automatic Cuff Blood Pressure Position Sitting Blood Pressure Position [Right Arm] Sitting 02 Sat by Pulse Oximetry 99 Oxygen Delivery Method Room Air Room Air - Lab Data Lab results reviewed: Yes: I reviewed the patient's lab results. Lab Results 01/13/20 10:49: WBC 8.1, RBC 3.43 L, Hgb 10.2 L, Hct 30.9 L, MCV 90.2, MCH 29.7, MCHC 32.9, RDW 20.6 H, Plt Count 328, MPV 8.2, Neut % (Auto) 76.3, Lymph % (Auto) 15.4, [place] % (Auto) 6.1, Eos % (Auto) 1.6, Baso % (Auto) 0.6, Neut # (Auto) 6.2, Lymph # (Auto) 1.3, [place] # (Auto) 0.5, Eos # (Auto) 0.1, Baso # (Auto) 0.1 01/13/20 10:49: Sodium 134 L, Potassium 3.9, Chloride 96 L, Carbon Dioxide 30, Anion Gap 11.9, BUN 15, Creatinine 0.80, Estimated Creat Clear 149, Estimated GFR 98, Est GFR ( Amer) 119, Glucose 186 H, Calcium 8.5, Total Bilirubin 0.5, AST 30, ALT 31, Alkaline Phosphatase 96, Total Protein 6.9, Albumin 3.8, Globulin 3.1, Albumin/Globulin Ratio 1.2 01/13/20 10:49: PT 10.3, INR 1.00 Result diagrams: 01/13/20 10:49 01/13/20 10:49 Orders (Tests/Meds): ED MEDICATIONS Discontinued Medications Generic Name Dose Route Start Last Admin Trade Name Freq PRN Reason Stop Dose Admin Sodium Chloride 1,000 mls @ 999 mls/hr 01/13/20 11:30 01/13/20 11:24 Sod Chlor 0.9% 1000ml Bag IV 01/13/20 12:30 999 mls/hr .Q1H1M ILEANA Administration Ondansetron HCl 4 mg 01/13/20 11:17 01/13/20 11:22 Zofran 4mg/2ml Vial IV 01/13/20 11:18 4 mg ONCE ONE Administration - CT Data CT Scan: Head Time Received: 13:[address] Reviewed: Yes: I have viewed the radiologist's interpretation Findings Narrative: PROCEDURE: CT HEAD/BRAIN WO CON CLINICAL INDICATION: involuntary movements RUE History of thyroid cancer COMPARISON: CT HEAD/BRAIN WO/W CON from 01/09/2020 TECHNIQUE: Axial images obtained. All CT scans at the facility use one or more dose reduction, viz: automated exposure control, ma/kV adjustment per patient size (including targeted exams where dose
[2020-01-13 11:01] LABS: Basophils # 0.1 K/mm3 (0-0.2); Basophils % 0.6 % (0.1-2.0); Eosinophils # 0.1 K/mm3 (0.0-0.4); Eosinophils % 1.6 % (0.1-12.0); Hematocrit 30.9 % (42.0-52.0); Hemoglobin 10.2 g/dL (14.1-18.0); Lymphocytes # 1.3 K/mm3 (0.7-4.5); Lymphocytes % 15.4 % (10-50); Mean Corpuscular HGB Conc 32.9 g/dL (31.8-35.4); Mean Corpuscular Hemoglobin 29.7 pg (27.0-31.2); Mean Corpuscular Volume 90.2 fl (80-94); Mean Platelet Volume 8.2 fl (7.4-10.4); Monocytes # 0.5 K/mm3 (0.1-1.0); Monocytes % 6.1 % (1.7-9.3); Neutrophils # 6.2 K/mm3 (1.8-7.8); Neutrophils % 76.3 % (37.0-80.0); Platelet Count 328 K/mm3 (142-424); Red Blood Count 3.43 M/mm3 (4.60-6.20); Red Cell Distribution Width 20.6 % (11.5-17.5); White Blood Count 8.1 K/mm3 (4.8-10.8)
[2020-01-13 11:03] LABS: Chloride 96 mmol/L (98-107)
[2020-01-13 11:04] LABS: Potassium 3.9 mmoL/L (3.5-5.1); Sodium 134 mmol/L (136-145)
[2020-01-13 11:06] LABS: Alanine Aminotransferase 31 U/L (12-78); Anion Gap 11.9 mEq/L (5-15); Aspartate Amino Transferase 30 U/L (17-59); Blood Urea Nitrogen 15 mg/dl (9-20); Carbon Dioxide 30 mmol/L (22.0-30.0); Creatinine Clearance Estimated 149 mL/min (50-200); Estimated Glomerular Filt Rate 98 ml/min (>60); GFR (African American) 119 ML/MIN (>60)
[2020-01-13 11:07] LABS: Albumin Level 3.8 g/dl (3.5-5.0); Albumin/Globulin Ratio 1.2 (1.1-1.8); Alkaline Phosphatase 96 U/L (38-126); Bilirubin,Total 0.5 mg/dl (0.2-1.3); Calcium 8.5 mg/dl (8.4-10.2); Globulin 3.1 g/dL (1.3-3.2); Glucose 186 mg/dl (74-100); Total Protein,Serum 6.9 g/dl (6.3-8.2)
--- NOTE | 2020-01-13 11:08 | CA_ITS ---
APPROVED REPORT Left Lower Extremity Venous Study for DVT. Outside Machinist: Amber Burris RVT Indications Lower Extremity Pain: left thigh pain, pt has a BKA on the left Risk Factors Obesity Prior Pulmonary Embolism Past History DVT : Pulmonary Embolism Medications Coumadin Vein Imaging CFV (L): compressive, spontaneous, phasic, augmentation FEM (L): compressive, spontaneous, phasic, augmentation GSV (L): Compressible Findings Study suggests no evidence of DVT seen in the left lower extremity. Study suggests no evidence of SVT seen in the left lower extremity. Conclusion No evidence of DVT or superficial thrombophlebitis in the veins scanned of the left lower extremity. Electronically signed by : Paul Grace MD 01/13/2020 17:19:19
--- NOTE | 2020-01-13 11:12 | PC.NURSE ---
MD notified that patient is stating that he feels as if he is going to pass out. Upon entry to the room patient is alert and oriented. States he is just feeling off. VS are WNL. Instructed patient to deep breathe and attempt to relax.
[2020-01-13 11:19] VITALS: BP 142/67; PULSE 62; RESP 22; O2SAT 94
--- NOTE | 2020-01-13 11:24 | ECG_ITS ---
APPROVED REPORT Exam: Resting ECG HR:62 bpm ECG Measurements Heart Rate 62 AXES NH 236 P 42 QRSd 88 QRS 46 QT 438 T 71 QTc 444 <Conclusion> Sinus rhythm with 1st degree AV block Otherwise normal ECG Electronically signed by : Richie Coulter, 01/16/2020 17:16:48
[2020-01-13 11:27] LABS: Prothrombin Time 10.3 seconds (9.4-11.8)
--- NOTE | 2020-01-13 11:28 | PC.NURSE ---
CV lab at bedside
--- NOTE | 2020-01-13 11:53 | CT_ITS ---
PROCEDURE: CT HEAD/BRAIN WO CON CLINICAL INDICATION: involuntary movements RUE History of thyroid cancer COMPARISON: CT HEAD/BRAIN WO/W CON from 01/09/2020 TECHNIQUE: Axial images obtained. All CT scans at the facility use one or more dose reduction, viz: automated exposure control, ma/kV adjustment per patient size (including targeted exams where dose is matched to indication, i.e. head), or iterative reconstruction technique. FINDINGS: No midline shift, mass effect, intracranial hemorrhage, hydrocephalus, or extra-axial fluid collection is evident. The calvarium has an unremarkable appearance. Small amount fluid is present in the mastoid sinuses on both sides . No sinus air-fluid level. Mild mucosal thickening is the right maxillary sinus. Postsurgical changes are present in the right TMJ and zygomatic region with subcutaneous clips and subcutaneous soft tissue thickening noted at this region consistent with postsurgical change. There is also some subcutaneous soft tissue thickening in the right scalp region at the vertex unchanged IMPRESSION: No acute intracranial finding Dictated by: Paul Grace MD 01/13/2020 12:48 Electronically signed by Paul Grace MD in [place] 01/13/2020 12:48
[2020-01-13 12:09] VITALS: BP 173/96; PULSE 98; RESP 22; O2SAT 98
--- NOTE | 2020-01-13 12:11 | PC.NURSE ---
Dr Nix speaking to Dr Pandya
[2020-01-13 13:03] VITALS: BP 137/71; PULSE 62; O2SAT 99
[2020-01-13 13:43] VITALS: BP 137/71; PULSE 62; RESP 22; TEMP 36.7; O2SAT 99
== END 2020-01-13 13:44 | disposition home or self-care (01) ==
PROVIDERS: Emergency Provider Emergency Medicine; PCP Family Medicine
DX: R42 Dizziness and giddiness (principal); K92.2 Gastrointestinal hemorrhage, unspecified; E11.65 Type 2 diabetes mellitus with hyperglycemia; C73 Malignant neoplasm of thyroid gland; I10 Essential (primary) hypertension; E78.5 Hyperlipidemia, unspecified; E03.9 Hypothyroidism, unspecified; Z87.891 Personal history of nicotine dependence; Z89.512 Acquired absence of left leg below knee; Z86.711 Personal history of pulmonary embolism; Z86.718 Personal history of other venous thrombosis and embolism; Z88.1 Allergy status to other antibiotic agents
CPT/HCPCS: 70450; 80053; 85025; 85610; 93005; 93971; 96365; 96375; 99284; J2405

== ENCOUNTER 2020-01-16 08:09 | Day surgery (SDC) | payer BC, SELFPAY ==
[2020-01-16 08:41] VITALS: BP 137/73; PULSE 68; RESP 20; TEMP 36.4; O2SAT 94; BMI 47.5
--- NOTE | 2020-01-16 08:46 | HMH.PMPROC ---
- Procedure Date: 01/16/20 Time: 08:47 Anesthesiologist:: Cody Smiley MD Complications:: None Pre-procedure Diagnosis:: Degenerative osteoarthritis left hip Post-procedure Diagnosis:: Same Indications for Procedure:: This patient is a pleasant 59-year-old white male who we are treating for left hip pain with degenerative osteoarthritis. He did get some temporary relief from his last injection however because of his high sugars we are unable to use steroid. We will do a left hip intra-articular injection today with steroid today to help him with his pain symptoms. Procedure Details:: Left hip intra-articular injection Informed consent was obtained the risk and benefits of the procedure was explained to the patient. The patient was taken to the procedure room. Left hip was prepped using ChloraPrep. The skin and subcutaneous tissues were anesthetized using lidocaine. A 22-gauge spinal needle was inserted and advanced into the left hip joint. Needle placement was confirmed with dye. After this we injected 10 mL bupivacaine 0.25% and Depo-Medrol 80 mg. The patient tolerated the procedure well with no complications. Plan and Disposition:: We will follow-up with him in 2 weeks. Will reevaluate symptoms at that time.
[2020-01-16 08:55] VITALS: BP 149/48; PULSE 69; RESP 20; O2SAT 96
[2020-01-16 08:55] LABS: POC Glucose,Bedside 193 (70-110)
[2020-01-16 08:56] VITALS: BP 142/85; PULSE 85; RESP 18; O2SAT 99
[2020-01-16 08:58] VITALS: BP 144/85; PULSE 85; RESP 18; O2SAT 98
== END 2020-01-16 08:58 | disposition home or self-care (01) ==
LOC: SC.PAINP 08:11
PROVIDERS: PCP Family Medicine; Visit Provider Anesthesiology
DX: M16.12 Unilateral primary osteoarthritis, left hip (principal); I25.10 Atherosclerotic heart disease of native coronary artery without angina pectoris; I10 Essential (primary) hypertension; E78.5 Hyperlipidemia, unspecified; J44.9 Chronic obstructive pulmonary disease, unspecified; K21.9 Gastro-esophageal reflux disease without esophagitis; I26.99 Other pulmonary embolism without acute cor pulmonale; E06.9 Thyroiditis, unspecified; Z90.89 Acquired absence of other organs; Z85.9 Personal history of malignant neoplasm, unspecified; Z89.512 Acquired absence of left leg below knee; Z87.891 Personal history of nicotine dependence
CPT/HCPCS: 20610; 77002; 82962; J1040; Q9966

== ENCOUNTER 2020-01-29 09:14 | Outpatient (RCR) | payer BC, MEDICARE, SELFPAY | END 2020-04-08 13:41 | disposition home or self-care (01) | LOC: PT 09:14 | PROVIDERS: Visit Provider Internal Medicine | DX: Z95.5 Presence of coronary angioplasty implant and graft (principal) | CPT/HCPCS: 93798 ==

== ENCOUNTER → 2020-02-02 08:42 | Outpatient (POV) | payer BC, SELFPAY ==
[2020-02-02 09:03] VITALS: BP 130/71; PULSE 70; RESP 18; O2SAT 98; BMI 47.5
--- NOTE | 2020-02-02 09:07 | HMH.PAINSOAP ---
[facility] Pain Management SOAP Note Subjective:: Is a pleasant 59-year-old white male who we are treating for left hip pain. Patient has a lesion on his hip. He has a history of cancer. At this time the lesion is stable and he gets relief from his injections however they do not last as much as they have in the past. Patient rates his pain a 5 out of 10. Patient states he is also having pain radiating into his groin and around his SI joint. Patient and I discussed doing an SI joint injection along with a left intra-articular injection to help alleviate additional pain. Patient does have an prosthetic leg on the left side which can contribute to SI joint pain. ROS General: no recent weight change, no fever, no sleep disturbances Respiratory: no cough, no shortness of air, no recurring pulmonary infections Cardiovascular/Peripheral Vascular: No chest pain, No palpitations, no edema, no shortness of breath. Gastrointestinal: no new onset incontinence, normal bowel movements reported Genitourinary: no new onset incontinence Musculoskeletal: Left hip pain, left SI joint pain Psychiatric: normal mood/ affect, Neurological: [denies new onset weakness in extremities], [denies new onset balance issues] Objective:: Physical Exam General: Alert and oriented x3, no acute distress, pleasant and cooperative, [on room air] Lungs: Resps E/U, Symmetrical chest expansion, Eyes: PERRL Musculoskeletal: Flexion and extension of lumbar spine somewhat guarded secondary to pain, deep tendon reflexes normal, strength in upper and lower extremities [5/5], [abnormal gait noted] patient has a positive Angélica test SI joint compression test and Mary Lou's test on the left side Neurological: speech clear, case advocate equal, no gross sensory deficits Assessment:: Sacroiliitis, left hip pain Plan:: We will schedule him for left SI joint injection left intra-articular hip injection. Patient's been instructed call the office if he has any issues prior to his next appointment. I will follow-up with him after his injection reassess his symptoms at that time he has been instructed to call the office if he has any issues prior to his next appointment. Dr. Smiley has reviewed this note and agrees with this plan of care. This note was dictated using voice recognition software and may contain errors or omissions [facility] History I have reviewed the patient's past medical history: Yes Medical History: Reports:: Asthma, Atherosclerotic Heart Disease, Deep Vein Thrombosis, Diabetes Mellitus Type 2, Heart Murmur, Hyperlipidemia, Hypertension, Peripheral Artery Disease, Pulmonary Embolism Denies:: Cancer, Diabetes Mellitus Type 1, MRSA, Seizures *Have you ever received a pneumonia vaccine?: Yes *Have you received a flu vaccine this season?: Yes Other Medical History: Reports: Anemia, Arthritis, Chemotherapy, Hoarseness, Hypothyroidism, Sinus Problems, Thyroid Disease, Other. Denies: Blood Transfusion Reaction Laterality Cases: Left: Other, Bilateral: Tonsillectomy Other Surgeries: Yes: Cancer Surgery, Cardiac Catheterization, Cholecystectomy, Thyroidectomy, Other Amputation: Yes (left bka) Fractures: No - *Social History Smoking Status: Former smoker Tobacco Type: cigarettes Alcohol Intake: never Alcohol Intake Frequency:: 0-2 drinks per day *Occupational Status:: other Housing: house Household Members: other *Travel in the last 8 weeks: None Family Hx:: Adopted
== END ==
PROVIDERS: PCP Family Medicine; Visit Provider Clinical Nurse Specialist Family Health
DX: M46.1 Sacroiliitis, not elsewhere classified (principal); M25.552 Pain in left hip
CPT/HCPCS: 99212

== ENCOUNTER → 2020-02-04 09:40 | Outpatient (CLI) | payer BC, SELFPAY ==
[2020-02-04 10:15] LABS: Hematocrit 32.9 % (42.0-52.0); Hemoglobin 10.7 g/dL (14.1-18.0)
[2020-02-04 10:47] LABS: INR 1.02 (0.9-1.1); Prothrombin Time 10.5 seconds (9.4-11.8)
[2020-02-04 10:59] LABS: Coronavirus 19 IgG Antibody Negative (Negative); Coronavirus 19 IgM Antibody Negative (Negative)
== END ==
PROVIDERS: Visit Provider Surgery
DX: D64.9 Anemia, unspecified (principal); Z01.84 Encounter for antibody response examination; Z86.718 Personal history of other venous thrombosis and embolism
CPT/HCPCS: 36415; 85014; 85018; 85610; 86328

== ENCOUNTER 2020-02-05 06:21 | Day surgery (SDC) | payer BC, SELFPAY ==
[2020-02-03 10:18] VITALS: BMI 49.5
[2020-02-05 06:38] VITALS: BP 139/73; PULSE 65; RESP 20; TEMP 36.2; O2SAT 98
--- NOTE | 2020-02-05 07:04 | P.PN_ITS ---
[facility] Anesthesia Checklist - Patient Identification Patient Identification: Arm Band, Verbal (Name & ) - Structural Data Admitted From: Home Planned Operative Procedure/s: EGD Consent for Planned Operative Procedure(s) Verified: Yes Verified Documents: Surgical Consent, History and Physical, Cardiac Clearance - NPO Status Verified Time NPO: 18:00 - Chart Verification Results Verified: CBC, BMP - Additional verifications Anesthesia Reactions: No Hx Blood Transfusions: No Blood Transfusion Reaction: No - Airway Assessment C-Spine Mobility Assessed: Yes (MP3, TMD 4, thick neck, ) TMJ Mobility Assessed: Yes Dentition: Poor Dentition (3 teeth left) - Neurological Assessment Level of Consciousness: Awake, Alert, Appropriate, Follows Commands Hx Seizures: No Numbness or tingling in extremities: Yes - Anesthesia Plan Anesthesia Risk discussed: Yes Anesthesia Plan: Verified ASA Class: IV Anesthesia Type: MAC [facility] History I have reviewed the patient's past medical history: Yes Medical History: Reports:: Asthma, Atherosclerotic Heart Disease, Cancer (thyroid), Deep Vein Thrombosis, Diabetes Mellitus Type 2, Heart Murmur, Hyperlipidemia, Hypertension, Peripheral Artery Disease, Pulmonary Embolism Denies:: Diabetes Mellitus Type 1, Internal Pacemaker, MRSA, Seizures *Have you ever received a pneumonia vaccine?: No *Have you received a flu vaccine this season?: Yes Other Medical History: Reports: Anemia, Arthritis, Chemotherapy, Hoarseness, Hypothyroidism, Sinus Problems, Thyroid Disease, Other. Denies: Blood Transfusion Reaction Anesthesia experience/problems:: No prior complications Laterality Cases: Left: Other, Bilateral: Tonsillectomy Other Surgeries: Yes: Cancer Surgery, Cardiac Catheterization, Cholecystectomy, Coronary Stent, Thyroidectomy, Other. No: Pacemaker Amputation: Yes (left bka) Fractures: No - *Social History Last grade of school completed: Some college Smoking Status: Former smoker Tobacco Type: cigarettes Alcohol Intake: never Alcohol Intake Frequency:: 0-2 drinks per day Substance Use Type: denies use *Occupational Status:: retired, disabled Housing: house Household Members: spouse *Travel in the last 8 weeks: None Family Hx:: Adopted
[2020-02-05 07:16] LABS: POC Glucose,Bedside 98 (70-110)
[2020-02-05 07:28] VITALS: O2SAT 97
[2020-02-05 07:38] VITALS: BP 105/42; PULSE 75; RESP 20; TEMP 36.6; O2SAT 93
--- NOTE | 2020-02-05 07:38 | HMH.SCOPE ---
- Procedure: Date: 02/05/20 Procedure Performed:: Esophagogastroduodenoscopy with biopsy Indications:: Recent gastrointestinal hemorrhage Performing Provider:: Clem Tovar MD Referring Provider:: . Sedation:: Monitored anesthesia care Procedure:: After informed consent was obtained the patient was taken to the endoscopy suite. Sedation ensued after the patient was transferred to the left lateral decubitus position. Pulse, blood pressure, and oxygen saturation were monitored throughout the procedure. The endoscope was advanced beyond the duodenal bulb. Retroflexion within the gastric lumen was accomplished. The gastroscope was carefully removed and the patient was transferred to recovery in stable condition. Please see findings and specimens below for detail. Findings:: Gastroesophageal junction at 45 cm Prepyloric ulcer with no sign of active bleeding (some clot noted at base) Specimens:: Biopsies of prepyloric ulcer margin Antral biopsy Recommendations:: Continue proton pump inhibition. Follow-up pathology. Complications:: No immediate Estimated blood obtained (mL): 1
[2020-02-05 07:48] VITALS: BP 100/45; PULSE 68; RESP 20; TEMP 36.6; O2SAT 91
[2020-02-05 07:58] VITALS: BP 99/45; PULSE 65; RESP 20; TEMP 36.6; O2SAT 92
[2020-02-05 08:19] VITALS: BP 112/68; PULSE 68; RESP 20; TEMP 36.6; O2SAT 94
== END 2020-02-05 08:19 | disposition home or self-care (01) ==
LOC: OUTP 06:22
PROVIDERS: PCP Family Medicine; Visit Provider Surgery
PROC: 0DJ08ZZ Inspection of Upper Intestinal Tract, Via Natural or Artificial Opening Endoscopic (ICD-10-PCS; CPT 43235; principal; 2020-02-05 07:30)
DX: K25.9 Gastric ulcer, unspecified as acute or chronic, without hemorrhage or perforation; I25.10 Atherosclerotic heart disease of native coronary artery without angina pectoris; E11.9 Type 2 diabetes mellitus without complications; E78.5 Hyperlipidemia, unspecified; I10 Essential (primary) hypertension; I73.9 Peripheral vascular disease, unspecified; I26.99 Other pulmonary embolism without acute cor pulmonale; Z85.850 Personal history of malignant neoplasm of thyroid; I82.409 Acute embolism and thrombosis of unspecified deep veins of unspecified lower extremity; M19.90 Unspecified osteoarthritis, unspecified site; D64.9 Anemia, unspecified; Z79.899 Other long term (current) drug therapy
CPT/HCPCS: 43239; 82962; J2704

== ENCOUNTER 2020-02-09 14:13 | Day surgery (SDC) | payer BC, SELFPAY ==
[2020-02-09 14:54] VITALS: BP 152/63; PULSE 71; RESP 20; TEMP 36.2; O2SAT 95; BMI 47.1
[2020-02-09 15:09] VITALS: BP 145/88; PULSE 78; RESP 20; O2SAT 97
[2020-02-09 15:10] VITALS: BP 142/88; PULSE 74; RESP 18; O2SAT 98
[2020-02-09 15:11] LABS: POC Glucose,Bedside 219 (70-110)
--- NOTE | 2020-02-09 15:14 | HMH.PMPROC ---
- Procedure Date: 02/09/20 Time: 15:14 Anesthesiologist:: Loan Pham APRN Complications:: None Pre-procedure Diagnosis:: Sacroiliitis, left hip pain Post-procedure Diagnosis:: Same Indications for Procedure:: Is a pleasant 59-year-old white male who we are treating for left hip pain. Patient has a lesion on his hip. He has a history of cancer. At this time the lesion is stable and he gets relief from his injections however they do not last as much as they have in the past. Patient rates his pain a 6 out of 10. Patient states he is also having pain radiating into his groin and around his SI joint. Patient and I discussed doing an SI joint injection along with a left intra-articular injection to help alleviate additional pain. Patient does have an prosthetic leg on the left side which can contribute to SI joint pain. Is a positive Angélica test SI joint compression test and Mary Lou's test on the left side Physical Exam General: Alert and oriented x3, no acute distress, pleasant and cooperative, [on room air] Lungs: Resps E/U, Symmetrical chest expansion, Eyes: PERRL Musculoskeletal: Flexion and extension of lumbar spine somewhat guarded secondary to pain, deep tendon reflexes normal, strength in upper and lower extremities [5/5], [abnormal gait noted] patient has had a left leg amputation Neurological: speech clear, wire winding machine operator equal, no gross sensory deficits Procedure Details:: Informed consent was obtained and the risks and benefits of the procedure were explained to the patient. Patient was taken to the procedure room. Patient was placed prone on the procedure table. The left hip was prepped using ChloraPrep as a cleansing solution. The skin and subcutaneous tissues were anesthetized using lidocaine. Using fluoroscopic guidance I placed a 22-gauge spinal needle into the inferior aspect of the left SI joint. After this I injected 5 mL bupivacaine 0.25% and Depo-Medrol 40 mg into the left SI joint. The patient tolerated the procedure well with no complication. We then moved onto the left hip. It was prepared with ChloraPrep. The skin and subcutaneous tissues were anesthetized using lidocaine. A 22-gauge spinal needle was inserted and advanced into the left hip joint. Needle placement was confirmed with dye. After this we injected 10 mL's of bupivacaine 0.25% and Depo-Medrol 40 mg. Patient tolerated the procedure well with no complications. Plan and Disposition:: We will see the patient back in 2 to 3 weeks reassess his symptoms at that time he has been instructed to call the office if he has any issues prior to his next appointment. Dr. Smiley has reviewed this note and agrees with this plan of care. This note was dictated using voice recognition software and may contain errors or omissions
[2020-02-09 15:25] VITALS: BP 124/70; PULSE 72; RESP 20; TEMP 36.4; O2SAT 95
== END 2020-02-09 15:25 | disposition home or self-care (01) ==
LOC: SC.PAINP 14:14
PROVIDERS: PCP Family Medicine; Visit Provider Clinical Nurse Specialist Family Health
DX: M46.1 Sacroiliitis, not elsewhere classified (principal); M25.552 Pain in left hip; Z85.9 Personal history of malignant neoplasm, unspecified; Z88.1 Allergy status to other antibiotic agents; E78.5 Hyperlipidemia, unspecified; I10 Essential (primary) hypertension; I25.10 Atherosclerotic heart disease of native coronary artery without angina pectoris; I25.2 Old myocardial infarction; J44.9 Chronic obstructive pulmonary disease, unspecified; I26.99 Other pulmonary embolism without acute cor pulmonale; K21.9 Gastro-esophageal reflux disease without esophagitis; E07.9 Disorder of thyroid, unspecified
CPT/HCPCS: 20610; 27096; 77002; 82962; G0260; J1040; Q9966

== ENCOUNTER → 2020-02-11 08:19 | Outpatient (CLI) | payer BC, SELFPAY ==
--- NOTE | 2020-02-11 08:19 | FL_ITS ---
PROCEDURE: FL BARIUM ENEMA CLINICAL INDICATION: anemia COMPARISON: No exams were available for comparison FINDINGS: Crutch Maker exam shows postsurgical changes of the lumbar spine and surgical clips in the right upper quadrant. Study is somewhat technically difficult due to patient's inability to be properly maneuvered. The colon is visualized from rectum to cecum with single contrast technique. No annular constricting lesions or fixed polypoid filling defects are evident. No evidence of diverticulosis. The appendix did fill. IMPRESSION: Negative barium enema Dictated b Paul Grace MD 02/11/2020 14:40 Paul Grace MD in OV 02/11/2020 14:40
== END ==
PROVIDERS: PCP Family Medicine; Visit Provider Surgery
DX: D64.9 Anemia, unspecified (principal)
CPT/HCPCS: 74270

== ENCOUNTER → 2020-03-01 08:50 | Outpatient (POV) | payer BC, SELFPAY ==
--- NOTE | 2020-03-01 09:06 | HMH.PAINSOAP ---
[facility] Pain Management SOAP Note Subjective:: Dr. Smiley has reviewed this note and agrees with this plan of care. This note was dictated using voice recognition software and may contain errors or omissions is a pleasant 59-year-old white male who presents today for follow-up after a SI joint and hip injection. Patient is doing extremely well. Patient states that his hip is virtually pain-free his only pain today is his back. Patient is currently in physical therapy and is utilizing a stepper. He rates his pain today 4 out of 10. Patient does have positive facet loading lumbar spine. Patient has had rhizotomies that have been extremely successful in the past. He would like to repeat this. He is gotten over 80% relief with these rhizotomies lasting several months. Patient is on Coumadin so we will do bilateral rhizotomy on the same day. Patient has permission to come off of his Coumadin for these procedures. Pain is quite focal in nature. Patient has difficulty turning and twisting. ROS General: no recent weight change, no fever, no sleep disturbances Respiratory: no cough, no shortness of air, no recurring pulmonary infections Cardiovascular/Peripheral Vascular: No chest pain, No palpitations, no edema, no shortness of breath. Gastrointestinal: no new onset incontinence, normal bowel movements reported Genitourinary: no new onset incontinence Musculoskeletal: Back pain Psychiatric: normal mood/ affect Neurological: [denies new onset weakness in extremities], [denies new onset balance issues] Objective:: Physical Exam General: Alert and oriented x3, no acute distress, pleasant and cooperative, [on room air] Lungs: Resps E/U, Symmetrical chest expansion, Eyes: PERRL Musculoskeletal: Flexion and extension of lumbar spine somewhat guarded secondary to pain, deep tendon reflexes normal, strength in upper and lower extremities [5/5], [abnormal gait noted] patient has had a left leg amputation Neurological: speech clear, circus hand equal, no gross sensory deficits Assessment:: Degenerative disc disease lumbar spine lumbar spondylosis, postlaminectomy syndrome, facet arthropathy Plan:: We will schedule L3-L4 L4-L5 L5-S1 bilateral rhizotomy given the efficacy of this in the past I do believe it would benefit him. We will follow-up with him after his procedure reassess his symptoms that time he is on Coumadin however we do have permission for him to come off of it prior to his next procedure. Patient is instructed to call the office if he has any issues. Dr. Smiley has reviewed this note and agrees with this plan of care. This note was dictated using voice recognition software and may contain errors or omissions [facility] History I have reviewed the patient's past medical history: Yes Medical History: Reports:: Asthma, Atherosclerotic Heart Disease, Cancer, Coronary Artery Disease, Deep Vein Thrombosis, Diabetes Mellitus Type 2, Heart Murmur, Hyperlipidemia, Hypertension, Myocardial Infarction, Peripheral Artery Disease, Pulmonary Embolism Denies:: Diabetes Mellitus Type 1, Internal Pacemaker, MRSA, Seizures *Have you ever received a pneumonia vaccine?: Yes *Have you received a flu vaccine this season?: Yes Other Medical History: Reports: Anemia, Arthritis, Chemotherapy, Hoarseness, Hypothyroidism, Sinus Problems, Thyroid Disease, Other. Denies: Blood Transfusion Reaction Laterality Cases: Left: Other, Bilateral: Tonsillectomy Other Surgeries: Yes: Cancer Surgery, Cardiac Catheterization, Cholecystectomy, Coronary Stent, Thyroidectomy, Other. No: Pacemaker Amputation: Yes Fractures: No - *Social History Smoking Status: Former smoker Tobacco Type: cigarettes Alcohol Intake: never Alcohol Intake Frequency:: 0-2 drinks per day Substance Use Type: denies use *Occupational Status:: retired Housing: house Household Members: other *Travel in the last 8 weeks: None Family Hx:: Adopted
[2020-03-01 09:20] VITALS: BP 132/77; PULSE 78; RESP 18; O2SAT 99; BMI 50.8
== END ==
PROVIDERS: PCP Family Medicine; Visit Provider Clinical Nurse Specialist Family Health
DX: M51.36 Other intervertebral disc degeneration, lumbar region (principal); M96.1 Postlaminectomy syndrome, not elsewhere classified; M12.88 Other specific arthropathies, not elsewhere classified, other specified site; M47.816 Spondylosis without myelopathy or radiculopathy, lumbar region
CPT/HCPCS: 99212

== ENCOUNTER 2020-03-19 07:20 | Day surgery (SDC) | payer MEDICARE, SELFPAY ==
[2020-03-19 08:09] LABS: INR 0.94 (0.9-1.1); Prothrombin Time 9.7 seconds (9.4-11.8)
[2020-03-19 08:50] VITALS: BP 124/61; PULSE 65; RESP 20; TEMP 36.6; O2SAT 97; BMI 46.8
[2020-03-19 09:22] VITALS: BP 138/78; PULSE 78
[2020-03-19 09:23] VITALS: BP 123/57; BP 140/74; PULSE 64; PULSE 87; RESP 18; O2SAT 94
--- NOTE | 2020-03-19 10:04 | HMH.PMPROC ---
- Procedure Date: 03/19/20 Time: 10:05 Anesthesiologist:: Cody Smiley MD Complications:: None Pre-procedure Diagnosis:: Low back pain with degenerative disc disease of lumbar spine and postlaminectomy syndrome with facet arthropathy of lumbar spine Post-procedure Diagnosis:: Same Indications for Procedure:: This patient is a pleasant 59-year-old white male who we previously treated for lumbar facet arthropathy with RF ablation to the facet joints of the lumbar spine. He is currently on Coumadin and recently started Plavix for stent. He is unable to come off his blood thinners at this time. We are unable to do RF ablation of the facet joints so we will plan on trigger point injections to the lower lumbar paraspinous muscles bilaterally to see if this will help with his pain symptoms. He has had previous SI joint injections and an intra-articular hip injection. His hip is pain-free at this time he is doing very well from these injections. Procedure Details:: Bilateral lumbar paraspinous trigger point injections x8 Consent was obtained risk and benefits of the procedure were explained to the patient. Patient was taken to the procedure room. The back was prepped using ChloraPrep. Trigger points were palpated marked. Each of these trigger points were injected with bupivacaine 0.25% 3 mls and Depo-Medrol 10 mg. We injected total of 8 trigger points, 4 in each side using 80 mg Depo-Medrol. The patient tolerated the procedure well with no complications. Plan and Disposition:: We will follow-up with him in 2 weeks. Will reevaluate symptoms at that time.
== END 2020-03-19 09:24 | disposition home or self-care (01) ==
PROVIDERS: PCP Family Medicine; Visit Provider Anesthesiology
DX: M51.36 Other intervertebral disc degeneration, lumbar region (principal); M96.1 Postlaminectomy syndrome, not elsewhere classified; M12.88 Other specific arthropathies, not elsewhere classified, other specified site; I10 Essential (primary) hypertension; E11.9 Type 2 diabetes mellitus without complications; I25.10 Atherosclerotic heart disease of native coronary artery without angina pectoris; Z86.718 Personal history of other venous thrombosis and embolism; Z83.3 Family history of diabetes mellitus; Z82.49 Family history of ischemic heart disease and other diseases of the circulatory system; Z88.1 Allergy status to other antibiotic agents; Z88.8 Allergy status to other drugs, medicaments and biological substances; Z79.899 Other long term (current) drug therapy
CPT/HCPCS: 20552; 36415; 85610; J1030

== ENCOUNTER → 2020-04-05 10:28 | Outpatient (POV) | payer MEDICARE, SELFPAY ==
[2020-04-05 10:57] VITALS: BP 132/74; PULSE 65; RESP 18; O2SAT 98; BMI 46.2
--- NOTE | 2020-04-05 11:20 | HMH.PAINSOAP ---
[facility] Pain Management SOAP Note Subjective:: Patient is a 59-year-old white male who presents today for follow-up after trigger point injections. Patient was scheduled to undergo a bilateral RFA of his L3-L4 L4-L5 and L5-S1 area, however, the patient is on both Plavix and warfarin. The patient did hold his warfarin, however, did not realize he needed to hold his Plavix. Patient is prescribed these medications per different providers. He does rate his pain an 8 out of 10 today. He says the pain is intense to his low back. He says pain is worse with leaning forward. He does report that he got about 3 to 4 weeks of relief with trigger point injections, however, his pain is much worse at this time. Patient would like to proceed with repeat trigger point injections while we are seeking approval for the patient to hold his Plavix and Coumadin for an RFA. We we will also try to schedule the patient for an RFA as well. Patient has undergone medial branch blocks and has gotten up to 80% relief with the injections. Review of Systems General: No recent weight changes, no fever, no sleep disturbances Respiratory: No cough, no shortness of air, no recurring pulmonary infections Cardiovascular/peripheral vascular: No chest pain, no palpitations, no edema, no shortness of breath Gastrointestinal: No new onset incontinence, normal bowel movements reported Genitourinary: No new onset incontinence Musculoskeletal: Low back pain Psychiatric: Normal mood/affect Neurological: [Denies weakness in extremities], [denies balance issues] Objective:: Physical exam General: Alert and oriented x3, no acute distress, pleasant and cooperative, [on room air] Lungs: Respirations even and unlabored, symmetrical chest expansion Eyes: PERRL Musculoskeletal: Flexion and extension of lumbar spine somewhat guarded secondary to pain, deep tendon reflexes normal, strength in upper and lower extremities [5/5], [abnormal gait noted], positive Kemps test Neurological: Speech clear, international marketing intern equal, no gross sensory deficit Assessment:: Degenerative disc disease lumbar spine with lumbar radiculopathy symptoms, facet arthropathy and lumbar spondylosis Plan:: We will plan for trigger point injections to his lumbar paraspinous muscles as well as a lumbar RFA to L3-L4 L4-L5 and L5-S1 bilaterally. The patient is on both Plavix and Coumadin. We will seek approval for the patient to be able to hold both medications and plan for a RFA once we get approval. We will see him back in the clinic afterwards to reassess his symptoms. He has been instructed to contact the clinic if he has any concerns before his next appointment. We will also order the patient Lidoderm patches from specialty pharmacy. The patient and I specifically discussed risk factors for COVID19. These risks include, but are not limited to age greater than 60, heart or lung disease, diabetes, immunosuppression, and travel. We also discussed NSAIDs may worsen COVID19 infection or symptoms. Patient should not use NSAIDs to treat COVID19 signs or symptoms. Patient was also informed that any type of corticosteroid of any form (oral or injection) will decrease the patient's immune system response and may increase the likelihood of COVID19 infection and symptoms[address] Smiley has reviewed this note and agrees with this plan of care. This note was dictated using voice recognition software and make contain errors or omissions. [facility] History I have reviewed the patient's past medical history: Yes Medical History: Reports:: Asthma, Atherosclerotic Heart Disease, Atrial Fibrillation, Coronary Artery Disease, Deep Vein Thrombosis, Diabetes Mellitus Type 2, Heart Murmur, Hyperlipidemia, Hypertension, Myocardial Infarction, Peripheral Artery Disease, Pulmonary Embolism Denies:: Cancer, Diabetes Mellitus Type 1, Internal Pacemaker, MRSA, Seizures *Have you ever received a pneumonia vaccine?: Yes *Have you received a flu vaccin
== END ==
PROVIDERS: PCP Family Medicine; Visit Provider Clinical Nurse Specialist Family Health
DX: M51.16 Intervertebral disc disorders with radiculopathy, lumbar region (principal); M12.88 Other specific arthropathies, not elsewhere classified, other specified site; M47.896 Other spondylosis, lumbar region
CPT/HCPCS: 99212

== ENCOUNTER → 2020-04-06 07:17 | Outpatient (CLI) | payer MEDICARE, SELFPAY ==
[2020-04-06 07:58] LABS: Hematocrit 40.8 % (42.0-52.0); Hemoglobin 12.3 g/dL (14.1-18.0)
[2020-04-06 08:24] LABS: INR 0.96 (0.9-1.1); Prothrombin Time 10.7 seconds (9.4-11.8)
[2020-04-06 09:39] LABS: Coronavirus 19 IgG Antibody Negative (Negative); Coronavirus 19 IgM Antibody Negative (Negative)
== END ==
PROVIDERS: Visit Provider Surgery
DX: Z01.89 Encounter for other specified special examinations (principal); D64.9 Anemia, unspecified; Z13.810 Encounter for screening for upper gastrointestinal disorder; Z51.81 Encounter for therapeutic drug level monitoring; Z79.01 Long term (current) use of anticoagulants
CPT/HCPCS: 36415; 85014; 85018; 85610; 86328

== ENCOUNTER 2020-04-08 08:11 | Day surgery (SDC) | payer MEDICARE, SELFPAY ==
[2020-04-06 12:48] VITALS: BMI 45.0
[2020-04-08 08:40] VITALS: BP 143/70; PULSE 59; RESP 18; TEMP 36.4; O2SAT 99
--- NOTE | 2020-04-08 09:17 | P.PN_ITS ---
[facility] Anesthesia Checklist - Structural Data Admitted From: [place] [facility] Planned Operative Procedure/s: egd Consent for Planned Operative Procedure(s) Verified: Yes - Additional verifications Anesthesia Reactions: No Hx Blood Transfusions: No Blood Transfusion Reaction: No - Airway Assessment C-Spine Mobility Assessed: Yes TMJ Mobility Assessed: Yes Dentition: Poor Dentition - Neurological Assessment Level of Consciousness: Awake, Alert, Appropriate - Anesthesia Plan Anesthesia Risk discussed: Yes Anesthesia Plan: Verified ASA Class: III Anesthesia Type: MAC [facility] History I have reviewed the patient's past medical history: Yes Medical History: Reports:: Asthma, Atherosclerotic Heart Disease, Atrial Fibrillation, Cancer (thyroid), Coronary Artery Disease, Deep Vein Thrombosis, Diabetes Mellitus Type 2, Heart Murmur, Hyperlipidemia, Hypertension, Myocardial Infarction, Peripheral Artery Disease, Pulmonary Embolism Denies:: Diabetes Mellitus Type 1, Internal Pacemaker, MRSA, Seizures *Have you ever received a pneumonia vaccine?: Yes *Have you received a flu vaccine this season?: Yes Other Medical History: Reports: Anemia, Arthritis, Chemotherapy, Hoarseness, Hypothyroidism, Sinus Problems, Thyroid Disease, Other. Denies: Blood Transfusion Reaction Anesthesia experience/problems:: none Laterality Cases: Left: Other, Bilateral: Tonsillectomy Other Surgeries: Yes: Cancer Surgery, Cardiac Catheterization, Cholecystectomy, Coronary Stent, EGD, Thyroidectomy, Other (left leg amputation). No: Pacemaker Amputation: Yes Fractures: No - *Social History Last grade of school completed: High school graduate Smoking Status: Former smoker Tobacco Type: cigarettes Alcohol Intake: former Alcohol Intake Frequency:: 0-2 drinks per day Substance Use Type: denies use *Occupational Status:: disabled Housing: house Household Members: spouse *Travel in the last 8 weeks: None Family Hx:: Adopted
[2020-04-08 09:23] VITALS: O2SAT 97
--- NOTE | 2020-04-08 09:31 | HMH.SCOPE ---
- Procedure: Date: 04/08/20 Patient Date of :: 1960 Procedure Performed:: Esophagogastroduodenoscopy with biopsy Indications:: Prepyloric ulcer Performing Provider:: Clem Tovar MD Referring Provider:: . Sedation:: Monitored anesthesia care Procedure:: After informed consent was obtained the patient was taken to the endoscopy suite. Sedation ensued after the patient was transferred to the left lateral decubitus position. Pulse, blood pressure, and oxygen saturation were monitored throughout the procedure. The endoscope was advanced beyond the duodenal bulb. Retroflexion within the gastric lumen was accomplished. The gastroscope was carefully removed and the patient was transferred to recovery in stable condition. Please see findings and specimens below for detail. Findings:: Essentially unchanged prepyloric ulcer with fibrinous base No visible vessel noted No active bleeding noted No sign of recent hemorrhage Specimens:: Multiple biopsies of prepyloric ulcer margin Recommendations:: The patient states that he is not able to take a proton pump inhibitor secondary to interactions with his chemotherapeutic agents. H2 blockade if cleared by oncology. Overall medical management of ulceration to be tailored to oncologic recommendations. Continue endoscopic surveillance. Complications:: No immediate Estimated blood obtained (mL): 1
[2020-04-08 09:35] VITALS: BP 88/43; PULSE 65; RESP 16; TEMP 36.2; O2SAT 91
[2020-04-08 09:45] VITALS: BP 83/43; PULSE 58; RESP 16; TEMP 36.2; O2SAT 98
[2020-04-08 09:55] VITALS: BP 84/44; PULSE 63; RESP 16; TEMP 36.2; O2SAT 98
[2020-04-08 10:08] VITALS: BP 101/59; PULSE 60; RESP 18; TEMP 36.2; O2SAT 96
[2020-04-09 08:55] LABS: POC Glucose,Bedside 146 (70-110)
== END 2020-04-08 10:08 | disposition home or self-care (01) ==
LOC: OUTP 08:12
PROVIDERS: PCP Family Medicine; Visit Provider Surgery
PROC: 0DJ08ZZ Inspection of Upper Intestinal Tract, Via Natural or Artificial Opening Endoscopic (ICD-10-PCS; CPT 43235; principal; 2020-04-08 09:30)
DX: K25.9 Gastric ulcer, unspecified as acute or chronic, without hemorrhage or perforation (principal); E11.9 Type 2 diabetes mellitus without complications; J45.909 Unspecified asthma, uncomplicated; I25.10 Atherosclerotic heart disease of native coronary artery without angina pectoris; I48.91 Unspecified atrial fibrillation; E78.5 Hyperlipidemia, unspecified; I10 Essential (primary) hypertension; I25.2 Old myocardial infarction; M19.90 Unspecified osteoarthritis, unspecified site; Z85.850 Personal history of malignant neoplasm of thyroid; Z86.718 Personal history of other venous thrombosis and embolism; Z86.711 Personal history of pulmonary embolism
CPT/HCPCS: 43254; 82962; 88305

== ENCOUNTER 2020-04-16 12:35 | Day surgery (SDC) | payer MEDICARE, SELFPAY ==
[2020-04-16 12:50] VITALS: BP 148/61; PULSE 76; RESP 18; TEMP 36.7; O2SAT 97; BMI 39.6
[2020-04-16 13:10] LABS: POC Glucose,Bedside 163 (70-110)
[2020-04-16 13:11] VITALS: BP 135/88; PULSE 85; RESP 18; O2SAT 98
[2020-04-16 13:12] VITALS: BP 142/74; PULSE 85; RESP 18; O2SAT 98
--- NOTE | 2020-04-16 13:20 | HMH.PMPROC ---
- Procedure Date: 04/16/20 Time: 13:20 Anesthesiologist:: Cody Smiley MD Complications:: None Pre-procedure Diagnosis:: Degenerative disc disease of lumbar spine with lumbar radiculopathy symptoms and postlaminectomy syndrome lumbar spine with myofascial pain lumbar paraspinous muscles Post-procedure Diagnosis:: Same Indications for Procedure:: This patient is a pleasant 59-year-old white male who we are treating for low back pain with myofascial pain over the lumbar paraspinous muscles. He is also suffering from postlaminectomy syndrome lumbar spine. He is currently on Plavix and Coumadin. We will do bilateral lumbar paraspinous trigger point injections today to help him with his pain symptoms. He is previously done well with trigger point injections he is also done well with previous RFA and medial branch blocks. Procedure Details:: Bilateral lumbar paraspinous trigger point injections x8 Informed consent was obtained and the risk and benefits of the procedure were explained the patient. Patient was taken the procedure room. The back strap using ChloraPrep. Trigger points were palpated marked. Each of these trigger points were injected with bupivacaine 0.25% 3 mL and Depo-Medrol 10 mg. We injected total of 8 trigger points, 4 on each side with 80 mg Depo-Medrol. Patient tolerated the procedure well with no complications. Plan and Disposition:: We will follow-up with this patient 2 weeks. Will reevaluate symptoms at that time. Again in order to proceed with RFA of the lumbar facet joints/lumbar medial branches he needs to be off his Coumadin for 1 week with a PT/INR less than 1.3 and off his Plavix for 7 days.
[2020-04-16 13:28] VITALS: BP 133/67; PULSE 74; RESP 18; O2SAT 98
== END 2020-04-16 13:29 | disposition home or self-care (01) ==
LOC: SC.PAINP 12:37
PROVIDERS: PCP Family Medicine; Visit Provider Anesthesiology
DX: M51.16 Intervertebral disc disorders with radiculopathy, lumbar region (principal); M96.1 Postlaminectomy syndrome, not elsewhere classified; M79.18 Myalgia, other site; E11.9 Type 2 diabetes mellitus without complications; I10 Essential (primary) hypertension; Z86.718 Personal history of other venous thrombosis and embolism; Z79.01 Long term (current) use of anticoagulants; Z79.899 Other long term (current) drug therapy; Z79.4 Long term (current) use of insulin; Z88.1 Allergy status to other antibiotic agents; Z88.2 Allergy status to sulfonamides; Z88.8 Allergy status to other drugs, medicaments and biological substances
CPT/HCPCS: 20552; 82962; J1030

== ENCOUNTER 2020-04-30 07:14 | Day surgery (SDC) | payer MEDICARE, SELFPAY ==
[2020-04-30 07:46] LABS: INR 0.93 (0.9-1.1); Prothrombin Time 10.4 seconds (9.4-11.8)
[2020-04-30 08:28] VITALS: BP 135/67; PULSE 75; RESP 20; TEMP 35.9; O2SAT 97; BMI 46.0
[2020-04-30 09:03] LABS: POC Glucose,Bedside 132 (70-110)
[2020-04-30 09:16] VITALS: BP 133/74; PULSE 85; RESP 18; O2SAT 98
[2020-04-30 09:17] VITALS: BP 140/74; PULSE 85; RESP 18; O2SAT 98
[2020-04-30 09:48] VITALS: BP 123/68; PULSE 72; RESP 18; O2SAT 97
--- NOTE | 2020-04-30 10:32 | HMH.PMPROC ---
- Procedure Date: 04/30/20 Time: 10:32 Anesthesiologist:: Cody Smiley MD Complications:: None Pre-procedure Diagnosis:: Disease of lumbar spine with lumbar spondylosis and lumbar facet arthropathy with postlaminectomy syndrome lumbar spine Post-procedure Diagnosis:: Same Indications for Procedure:: This patient is a pleasant 59-year-old white male who we are treating for low back pain with lumbar spondylosis and lumbar facet arthropathy. He has been off of his Plavix and Coumadin for 7 days. His PT/INR are within normal limits. We will do bilateral lumbar RFA of L4-5 and L5-S1 today to help him with his pain symptoms. He has done well with these in the past. He also did well with his trigger point injections to the lumbar paraspinous muscles at his last visit. 80% relief in his pain symptoms at that time. Procedure Details:: Lumbar RFA informed consent was obtained and the risk and benefits of the procedure was explained to the patient. Patient was placed prone on the procedure table. The patient was prepped and draped in sterile fashion. C-arm fluoroscopy was used to view the lumbar spine. The skin and subcutaneous tissues were anesthetized using lidocaine. I placed 20-gauge RF needles into the facet joints of L4-5 and L5-S1 levels bilaterally. We underwent sensory stimulation. There is good sensory stimulation at 0.8 V. We underwent motor stimulation. There is no motor stimulation at 2 V. We then anesthetized these levels with lidocaine and Depo-Medrol. I used a total of 80 mg Depo-Medrol for both levels both sides. I then burned both levels of 405 and L5-S1 facet joint/medial branches on both sides for 4 minutes at 80 ?C. Each facet joint/medial branch of L4-5 and L5-S1 bilaterally was burned for 4 minutes at 80 ?C. Patient tolerated the procedure well with no complication. Plan and Disposition:: He can resume his Plavix and Coumadin tomorrow. We will follow-up with him in 2 weeks.
== END 2020-04-30 09:49 | disposition home or self-care (01) ==
PROVIDERS: PCP Family Medicine; Visit Provider Anesthesiology
DX: M51.36 Other intervertebral disc degeneration, lumbar region (principal); M54.06 Panniculitis affecting regions of neck and back, lumbar region; M47.816 Spondylosis without myelopathy or radiculopathy, lumbar region; M96.1 Postlaminectomy syndrome, not elsewhere classified; E11.9 Type 2 diabetes mellitus without complications; I10 Essential (primary) hypertension; I25.10 Atherosclerotic heart disease of native coronary artery without angina pectoris; Z95.818 Presence of other cardiac implants and grafts; J44.9 Chronic obstructive pulmonary disease, unspecified; Z86.711 Personal history of pulmonary embolism; Z79.01 Long term (current) use of anticoagulants; E89.0 Postprocedural hypothyroidism
CPT/HCPCS: 36415; 64635; 64636; 82962; 85610; J1030

== ENCOUNTER → 2020-05-13 11:08 | Outpatient (POV) | payer MEDICARE, SELFPAY ==
[2020-05-13 11:40] VITALS: BP 150/74; PULSE 67; RESP 18; TEMP 36.6; O2SAT 98; BMI 45.8
--- NOTE | 2020-05-16 13:43 | P.CONS_ITS ---
[facility] Pain Management SOAP Note Subjective:: Patient is a very pleasant 59-year-old white male who presents today for follow- up after his lumbar RFA. Patient rates his pain a 2 out of 10 overall doing extremely well. Patient states he is much more active and is able to complete activities of daily living. ROS General: no recent weight change, no fever, no sleep disturbances Respiratory: no cough, no shortness of air, no recurring pulmonary infections Cardiovascular/Peripheral Vascular: No chest pain, No palpitations, no edema, no shortness of breath. Gastrointestinal: no new onset incontinence, normal bowel movements reported Genitourinary: no new onset incontinence Musculoskeletal: Back pain at times Psychiatric: normal mood/ affect Neurological: [denies new onset weakness in extremities], [denies new onset balance issues] Objective:: Physical Exam General: Alert and oriented x3, no acute distress, pleasant and cooperative, [on room air] Lungs: Resps E/U, Symmetrical chest expansion, Eyes: PERRL Musculoskeletal: Flexion and extension of lumbar spine somewhat guarded secondary to pain, deep tendon reflexes normal, patient has leg amputation and utilizes a prosthetic leg [abnormal gait noted] Neurological: speech clear, note teller equal, no gross sensory deficits Assessment:: Degenerative disc disease lumbar spine with lumbar spondylosis lumbar facet arthropathy with postlaminectomy syndrome lumbar spine Plan:: I will follow-up with the patient 1 month reassess his symptoms at that time he has been instructed to call the office if he has any issues prior to his next appointment. Dr. Smiley has reviewed this note and agrees with this plan of care. This note was dictated using voice recognition software and may contain errors or omissions [facility] History I have reviewed the patient's past medical history: Yes Medical History: Reports:: Asthma, Atherosclerotic Heart Disease, Atrial Fibrillation, Cancer, Coronary Artery Disease, Deep Vein Thrombosis, Diabetes Mellitus Type 2, Heart Murmur, Hyperlipidemia, Hypertension, Myocardial Infarction, Peripheral Artery Disease, Pulmonary Embolism Denies:: Diabetes Mellitus Type 1, Internal Pacemaker, MRSA, Seizures *Have you ever received a pneumonia vaccine?: Yes *Have you received a flu vaccine this season?: Yes Other Medical History: Reports: Anemia, Arthritis, Chemotherapy, Hoarseness, Hypothyroidism, Sinus Problems, Thyroid Disease, Other. Denies: Blood Transfusion Reaction Laterality Cases: Left: Other, Bilateral: Tonsillectomy Other Surgeries: Yes: Cancer Surgery, Cardiac Catheterization, Cholecystectomy, Colonoscopy, Coronary Stent, EGD, Thyroidectomy, Other (left leg amputation). No: Pacemaker Amputation: Yes Fractures: No - *Social History Smoking Status: Former smoker Tobacco Type: cigarettes Alcohol Intake: never Alcohol Intake Frequency:: 0-2 drinks per day Substance Use Type: denies use *Occupational Status:: other Housing: house Household Members: spouse *Travel in the last 8 weeks: None Family Hx:: Adopted
== END ==
PROVIDERS: PCP Family Medicine; Visit Provider Clinical Nurse Specialist Family Health
DX: M51.36 Other intervertebral disc degeneration, lumbar region (principal); M47.816 Spondylosis without myelopathy or radiculopathy, lumbar region; M12.88 Other specific arthropathies, not elsewhere classified, other specified site; M96.1 Postlaminectomy syndrome, not elsewhere classified
CPT/HCPCS: 99212

== ENCOUNTER → 2020-05-25 11:10 | Outpatient (POV) | payer MEDICARE, SELFPAY | PROVIDERS: Visit Provider Dermatology | DX: Z00.00 Encounter for general adult medical examination without abnormal findings (principal) ==

== ENCOUNTER 2020-06-01 11:35 | Inpatient (IN) | payer MEDICARE, SELFPAY ==
[2020-06-01 11:59] VITALS: BMI 47.6
--- NOTE | 2020-06-01 12:44 | P.CONPHA_ITS ---
[facility] Pharmacy VTE Monitoring - Patient Demographics Admission date: 06/01/20 Report Date: 06/01/20 Time: 12:44 Allergies/Adverse Reactions: Patient Allergies cefepime Allergy (Severe, Verified 05/12/20 12:58) BLEEDING SORES piperacillin [From ZOSYN] Allergy (Severe, Verified 05/12/20 12:58) RENAL FAILURE tazobactam [From ZOSYN] Allergy (Severe, Verified 05/12/20 12:58) RENAL FAILURE vancomycin [VANCOMYCIN] Allergy (Severe, Verified 05/12/20 12:58) RENAL FAILURE ciprofloxacin [From CIPRO] Allergy (Intermediate, Verified 05/12/20 12:58) JOINT PAIN doxazosin Allergy (Intermediate, Verified 05/12/20 12:58) LOW BP/DEHYDRATION hydralazine [HYDRALAZINE] Allergy (Intermediate, Verified 05/12/20 12:58) LOW BP/DEHYDRATION nifedipine Allergy (Intermediate, Verified 05/12/20 12:58) LOW BP/DEHYDRATION pioglitazone [From ACTOS] Allergy (Intermediate, Verified 05/12/20 12:58) CHEST CONGESTION rosiglitazone [From AVANDIA] Allergy (Intermediate, Verified 05/12/20 12:58) CHEST CONGESTION sulfamethoxazole [From BACTRIM] Allergy (Intermediate, Verified 05/12/20 12:58) JOINT SWELLING trimethoprim [From BACTRIM] Allergy (Intermediate, Verified 05/12/20 12:58) JOINT SWELLING exenatide [From BYDUREON] Allergy (Unknown, Verified 05/12/20 12:58) Unknown allergy reaction sucralfate [From CARAFATE] Allergy (Unknown, Verified 05/12/20 12:58) Unknown allergy reaction esomeprazole [From Nexium] Adverse Reaction (Intermediate, Verified 05/12/20 12:58) carvedilol Adverse Reaction (Verified 05/12/20 12:58) Difficulty Breathing Height: 1.91 m Weight: 172.819 kg - VTE Risk VTE Score: 6 VTE Risk Level: Moderate Risk - Prophylaxis Types of VTE Prophylaxis: TEDS Knee High Location of Applied Device: Bilateral Lower Extremeties
[2020-06-01 12:49] LABS: Chloride 103 mmol/L (98-107); Potassium 4.6 mmoL/L (3.5-5.1); Sodium 138 mmol/L (136-145)
[2020-06-01 12:51] LABS: Basophils % 0.5 % (0.1-2.0); Blood Urea Nitrogen 36 mg/dl (9-20); Creatinine Clearance Estimated 93 mL/min (50-200); Eosinophils # 0.1 K/mm3 (0.0-0.4); Eosinophils % 1.3 % (0.1-12.0); Estimated Glomerular Filt Rate 86 ml/min (>60); GFR (African American) 104 ML/MIN (>60); Hematocrit 34.7 % (42.0-52.0); Hemoglobin 10.8 g/dL (14.1-18.0); Lymphocytes # 1.4 K/mm3 (0.7-4.5); Lymphocytes % 15.7 % (10-50); Mean Corpuscular HGB Conc 31.2 g/dL (31.8-35.4); Mean Corpuscular Hemoglobin 28.8 pg (27.0-31.2); Mean Corpuscular Volume 92.2 fl (80-94); Monocytes # 0.5 K/mm3 (0.1-1.0); Monocytes % 5.8 % (1.7-9.3); Neutrophils # 6.8 K/mm3 (1.8-7.8); Neutrophils % 76.7 % (37.0-80.0); Platelet Count 300 K/mm3 (142-424); Red Blood Count 3.76 M/mm3 (4.60-6.20); Red Cell Distribution Width 18.6 % (11.5-17.5); White Blood Count 8.9 K/mm3 (4.8-10.8)
[2020-06-01 12:52] LABS: Alanine Aminotransferase 35 U/L (12-78); Albumin Level 3.8 g/dl (3.5-5.0); Albumin/Globulin Ratio 1.2 (1.1-1.8); Alkaline Phosphatase 91 U/L (38-126); Anion Gap 11.6 mEq/L (5-15); Aspartate Amino Transferase 30 U/L (17-59); Bilirubin,Total 0.4 mg/dl (0.2-1.3); Carbon Dioxide 28 mmol/L (22.0-30.0); Globulin 3.1 g/dL (1.3-3.2); Glucose 198 mg/dl (74-100); Total Protein,Serum 6.9 g/dl (6.3-8.2)
[2020-06-01 12:57] LABS: Prothrombin Time 37.8 seconds (9.4-11.8)
[2020-06-01 12:58] LABS: INR 3.85 (0.9-1.1)
[2020-06-01 13:00] VITALS: O2SAT 96
[2020-06-01 13:24] LABS: Coronavirus 19 IgG Antibody Negative (Negative); Coronavirus 19 IgM Antibody Negative (Negative)
--- NOTE | 2020-06-01 14:21 | HMH.PHAINT ---
Medication reconciliation completed using physician office medication list and pharmacy claims data.
--- NOTE | 2020-06-01 15:12 | HMH.HP ---
*Admission Date: 06/01/20 <Lily Bender - 06/01/20 15:42> *Chief complaint: Rectal bleeding <Lily Benedr 06/01/20 15:42> *History of present illness: Mr. Worthy is a 59-year-old male patient with an extensive and complicated history who presented to the office [facility] to see Dr. Pandya today. He states about a week ago he had some bloody stool. It then started to recur within the last 24 hours at which time he has had rectal bleeding as well as black stools. He states he always has a diarrhea since being on his chemotherapy. He has been seeing Dr. Ashton who was scheduling a EGD in a week for an evaluation of his peptic ulcer. East denies nausea, vomiting, fever, and admits to some abdominal cramping at times. He has been voiding without difficulty. He states he has been eating normally. He describes dizziness sometimes when standing but has not had any syncopal episodes. With evaluation in the office CBC revealed a hemoglobin of 10.5 and hematocrit of 32.8 with a white blood cell count of 9500. INR was found to be 4.3. He was admitted with some dramatic anemia for further evaluation and treatment. Surgeon has been consulted.Additional lab work after admission shows normal electrolytes with a BUN of 36 and creatinine 0.9. Liver function studies are normal. Covid IgG and IgM were both negative. 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 He is followed by oncology and is on chemotherapy with Votrient. He also attends physical therapy for his ongoing chronic back pain and is followed by Dr. Frank in pain management. <Lily Bender - 06/01/20 15:42> [facility] History Medical History: Reports:: Asthma, Atherosclerotic Heart Disease, Atrial Fibrillation, Cancer (STAGE 4 THYROID), Coronary Artery Disease, Deep Vein Thrombosis, Diabetes Mellitus Type 2, Heart Murmur, Hyperlipidemia, Hypertension, Myocardial Infarction, Peripheral Artery Disease, Pulmonary Embolism, Ulcer Denies:: Diabetes Mellitus Type 1, Internal Pacemaker, MRSA, Seizures <BenderLily 06/01/20 15:42> *Have you ever received a pneumonia vaccine?: Yes <Lily Bender /01/20 15:42> *Have you received a flu vaccine this season?: Yes <Lily Bender 06/01/20 15:42> Other Medical History: Reports: Anemia, Arthritis, Chemotherapy, Hoarseness, Hypothyroidism, Sinus Problems, Thyroid Disease, Other. Denies: Blood Transfusion Reaction <Lily Bender 06/01/20 15:42> Comment:: Metastatic papillary thyroid carcinoma of the follicular variant metastatic to the lung, ribs, humerus, spine, mandible. Left prosthetic leg. History of DVT with pulmonary embolus. <Lily Bender 06/01/20 15:42> Laterality Cases: Left: Other, Bilateral: Tonsillectomy <Lily Bender 06/01/20 15:42> Other Surgeries: Yes: Cancer Surgery (THYROID), Cardiac Catheterization, Cardiac Surgery, Cholecystectomy, Colonoscopy, Coronary Stent, EGD, Thyroidectomy, Other (left leg amputation). No: Pacemaker <Lily Bender 06/01/20 15:42> Amputation: Yes <Lily Bender 06/01/20 15:42> Fractures: No <Lily Bender 06/01/20 15:42> Comment: Surgery for intestinal blockage in 2007, vasectomy, multiple left foot surgeries prior to amputation, tumor removed from his spine 2014, TMJ right jaw surgery due to cancer in July 2019, I&D of large abscesses of the neck and right side of the face at in July 2019, EGD per Dr. Ashton with prepyloric ulcer in January 2020. <Lily Bender 06/01/20 15:42> - *Social History Last grade of school completed: 11th or 12th <Lily Bender 06/01/20 15:42> Smoking Status: Smoker, status unknown <Lily Bender 06/01/20 15:42> Tobacco Type: cigarettes <Lily Bender 06/01/20 15:42> Alcohol Intake: never <Lily Bender 06/01/20 15:42> Alcohol Intake Frequency:
[2020-06-01 16:00] VITALS: BP 128/78; PULSE 62; RESP 18; TEMP 36.9; O2SAT 97
[2020-06-01 16:16] LABS: POC Glucose,Bedside 171 (70-110)
[2020-06-01 16:30] LABS: Hematocrit 30.6 % (42.0-52.0); Hemoglobin 9.8 g/dL (14.1-18.0)
--- NOTE | 2020-06-01 18:30 | PC.NURSE ---
PT WAS A DIRECT ADMIT TODAY FOR RECTAL BLEEDING AND CHRONIC ANTICOAGULATION. PT IS A&O X4. PT STATES CHRONIC BACK PAIN BUT RATES IT A 3/10. PT ON DIABETIC DIET BUT WILL BE NPO AT MIDNIGHT. PT HAS A L L AMPUTATION AND HAS A PROSTHESIS. PT IS A L UPPER LIMB ALERT. PT AMBULATES INDEPENDENTLY. PT HAS STAGE 4 THYROID CANCER. HX OF DVT AND PE'S. LOVENOX GIVEN THIS SHIFT. PT HAS RESTED WELL AND HAS NOT HAD A BM SINCE ARRIVAL.
--- NOTE | 2020-06-01 18:48 | HMH.GSCON ---
*Admission Date: 06/01/20 *Reason for consult:: Anemia; blood per rectum; prepyloric ulcer *History of present illness: This is a 59-year-old gentleman seen in consultation from Dr. Pandya for evaluation regarding gastrointestinal hemorrhage. He has an extensive medical history including metastatic thyroid cancer and deep venous thrombosis. Over the past week he has noticed increased weakness and some blood per rectum. In January of this year he was diagnosed with a prepyloric ulcer with no active bleeding. He chose to forego colonoscopy secondary to his complex past medical history. He did have a barium enema that was essentially normal. Follow-up EGD in April revealed an essentially unchanged prepyloric ulcer with a fibrinous base. No adherent clot or vessel noted. No sign of active hemorrhage noted at either endoscopic evaluation. He takes warfarin secondary to history of DVT. He is on Plavix secondary to coronary artery stent placement in November of this year. Per recommendations from his medical oncologist/electronic component processor he is unable to be placed on proton pump inhibition or H2 blockade. He states that he has been told on numerous occasions that his only allowable antiulcer medicine is Mylanta . Review of Systems - Constitutional Denies chills - Eyes Denies change in vision - ENT Denies difficulty swallowing - *Cardiovascular Denies chest pain - *Respiratory Denies cough - *Gastrointestinal Denies abdominal pain - *Genitourinary Denies blood in urine - *Musculoskeletal Reports muscle weakness - Integumentary/Breasts Denies new lesions - *Neurologic Reports dizziness, Reports dizziness, Denies abnormal walking, Denies seizure-like activity, Denies headache(s), Denies weakness - Psychiatric Denies anxiety - Endocrine Denies cold intolerance - Hematologic/Lymphatic Reports easy bruising - Allergic/Immunologic Denies hives [facility] History Medical History: Reports:: Asthma, Atherosclerotic Heart Disease, Atrial Fibrillation, Cancer (STAGE 4 THYROID), Coronary Artery Disease, Deep Vein Thrombosis, Diabetes Mellitus Type 2, Heart Murmur, Hyperlipidemia, Hypertension, Myocardial Infarction, Peripheral Artery Disease, Pulmonary Embolism, Ulcer Denies:: Diabetes Mellitus Type 1, Internal Pacemaker, MRSA, Seizures *Have you ever received a pneumonia vaccine?: Yes *Have you received a flu vaccine this season?: Yes Other Medical History: Reports: Anemia, Arthritis, Chemotherapy, Hoarseness, Hypothyroidism, Sinus Problems, Thyroid Disease, Other. Denies: Blood Transfusion Reaction Laterality Cases: Left: Other, Bilateral: Tonsillectomy Other Surgeries: Yes: Cancer Surgery (THYROID), Cardiac Catheterization, Cardiac Surgery, Cholecystectomy, Colonoscopy, Coronary Stent, EGD, Thyroidectomy, Other (left leg amputation). No: Pacemaker Amputation: Yes Fractures: No - *Social History Last grade of school completed: 11th or 12th Smoking Status: Smoker, status unknown Tobacco Type: cigarettes Alcohol Intake: never Alcohol Intake Frequency:: 0-2 drinks per day Substance Use Type: denies use *Occupational Status:: retired, disabled Housing: house Household Members: spouse *Travel in the last 8 weeks: None Family Hx:: Unable to obtain Meds Home Medications Medication Instructions Recorded Confirmed Type Calcium Carbonate [Calcium] 4,000 mg PO DAILY 07/01/17 06/01/20 History Insulin Detemir [Levemir 100 65 units SQ HS 07/01/17 06/01/20 History units/mL 10mL vial] Insulin Lispro [HumaLOG 100 15 units SQ DIRECTED 07/01/17 06/01/20 History units/mL 3mL vial (SSI)] diphenhydrAMINE HCL [Benadryl 25mg 50 mg PO HSP PRN 07/01/17 06/01/20 History Capsule] hydroCHLOROthiazide [HCTZ 25mg 25 mg PO DAILY 07/01/17 06/01/20 History tab] Fluticasone Propionate [Flonase 1 spray NS DAILY 10/16/18 06/01/20 History 50mcg nasal spray 16gm] lisinopriL [Lisinopril 40mg Tablet] 40 mg PO DAILY 10/17/18
[2020-06-01 20:00] VITALS: BP 106/71; PULSE 68; RESP 20; TEMP 36.9; O2SAT 96
[2020-06-01 21:31] LABS: POC Glucose,Bedside 194 (70-110)
[2020-06-01 22:37] LABS: Hematocrit 29.1 % (42.0-52.0); Hemoglobin 9.4 g/dL (14.1-18.0)
[2020-06-02 04:00] VITALS: BP 104/57; PULSE 66; RESP 20; TEMP 36.4; O2SAT 93
--- NOTE | 2020-06-02 04:57 | PC.NURSE ---
Pt is A&Ox4 and has ambulated independently with cane and does well. Pt has denied any N/V/D, tenderness to ABD, and has active bowel sounds t/o. Pt has had 1 BM this shift that was dark brown, formed, and dark red streaks. Lungs CTA, room air sat >95% this shift. Pt has a previous Left BKA, a few very small scabs noted to lower ABD. Pt reports these scabs are from insulin injections. Lovenox for VTE. Pt has c/o chronic pain to back, medicated with tylenol 1x thus far. Pt has been NPO since midnight for Gen/Surg consult and possible EGD if INR level is stable. VSS, call light within reach.
[2020-06-02 05:23] VITALS: BMI 47.2
[2020-06-02 06:14] LABS: POC Glucose,Bedside 176 (70-110)
--- NOTE | 2020-06-02 06:58 | HMH.GSPN ---
Subjective Patient reports: no new complaints, blood in stool Progress Note: A&P (1) Rectal bleeding Status: Acute Assessment and plan: likely secondary to gastric ulcer (2) Anemia Status: Acute Assessment and plan: f/u AM labs (3) History of peptic ulcer disease Status: Chronic Assessment and plan: continue H2 blockade for now (PPI if cleared by Thyroid Oncologist) (4) Dizziness Status: Acute (5) History of DVT (deep vein thrombosis) Status: Chronic (6) History of coronary artery stent placement Status: Chronic (7) History of left below knee amputation Status: Chronic (8) History of mandibular surgery Status: Chronic (9) History of pulmonary embolus (PE) Status: Chronic (10) 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 Status: Chronic (11) Status post coronary artery stent placement Status: Chronic (12) Type 2 diabetes mellitus Status: Chronic (13) Chronic anticoagulation Status: Chronic Exam Vital signs and Labs for Last 24 Hours: Temp Pulse Resp BP Pulse Ox 97.5 F L 66 20 104/57 L 93 L 06/02/20 04:00 06/02/20 04:00 06/02/20 04:00 06/02/20 04:00 06/02/20 04:00 Laboratory Results - last 24 hr 06/01/20 12:25: WBC 8.9, RBC 3.76 L, Hgb 10.8 L, Hct 34.7 L, MCV 92.2, MCH 28.8, MCHC 31.2 L, RDW 18.6 H, Plt Count 300, MPV 9.0, Neut % (Auto) 76.7, Lymph % (Auto) 15.7, [place] % (Auto) 5.8, Eos % (Auto) 1.3, Baso % (Auto) 0.5, Neut # (Auto) 6.8, Lymph # (Auto) 1.4, [place] # (Auto) 0.5, Eos # (Auto) 0.1, Baso # (Auto) 0.0 06/01/20 12:25: PT 37.8 H, INR 3.85 H 06/01/20 12:25: Sodium 138, Potassium 4.6, Chloride 103, Carbon Dioxide 28, Anion Gap 11.6, BUN 36 H, Creatinine 0.90, Estimated Creat Clear 93, Estimated GFR 86, Est GFR ( Amer) 104, Glucose 198 H, Calcium 9.0, Total Bilirubin 0.4, AST 30, ALT 35, Alkaline Phosphatase 91, Total Protein 6.9, Albumin 3.8, Globulin 3.1, Albumin/Globulin Ratio 1.2 06/01/20 12:25: Blood Type O Positive, Antibody Screen Negative 06/01/20 12:25: SARS-CoV-2 IgG Ab (Rapid) Negative, SARS-CoV-2 IgM Ab (Rapid) Negative 06/01/20 16:04: POC Glucose 171 H 06/01/20 16:15: Hgb 9.8 L, Hct 30.6 L 06/01/20 21:18: POC Glucose 194 H 06/01/20 22:05: Hgb 9.4 L, Hct 29.1 L 06/02/20 05:50: POC Glucose 176 H I & O for Last 24 hours: Intake & Output 05/30/20 05/31/20 06/01/20 06/02/20 11:59 11:59 11:59 11:59 Intake Total 440 / 440 Balance 440 / 440 Weight 381 lb 380 lb 8 oz - Constitutional no acute distress - *Routine Respiratory Exam Absent: respiratory distress - *Routine Cardiovascular Exam Present: RRR - *Routine Abdominal Exam Present: soft
[2020-06-02 07:41] LABS: Basophils # 0.1 K/mm3 (0-0.2); Basophils % 0.6 % (0.1-2.0); Eosinophils # 0.2 K/mm3 (0.0-0.4); Eosinophils % 2.4 % (0.1-12.0); Hemoglobin 9.2 g/dL (14.1-18.0); Lymphocytes # 1.3 K/mm3 (0.7-4.5); Lymphocytes % 14.9 % (10-50); Mean Corpuscular HGB Conc 31.8 g/dL (31.8-35.4); Mean Corpuscular Hemoglobin 29.5 pg (27.0-31.2); Mean Platelet Volume 8.8 fl (7.4-10.4); Monocytes # 0.5 K/mm3 (0.1-1.0); Monocytes % 5.6 % (1.7-9.3); Neutrophils # 6.5 K/mm3 (1.8-7.8); Neutrophils % 76.6 % (37.0-80.0); Platelet Count 279 K/mm3 (142-424); Red Blood Count 3.12 M/mm3 (4.60-6.20); Red Cell Distribution Width 18.8 % (11.5-17.5); White Blood Count 8.5 K/mm3 (4.8-10.8)
[2020-06-02 08:00] VITALS: BP 119/67; PULSE 72; RESP 17; TEMP 36.8; O2SAT 95
--- NOTE | 2020-06-02 08:05 | HMH.ACPN2 ---
<Destiny Farah - Last Filed: 06/02/20 08:05> Internal Medicine - PN: Subj *Date: 06/02/20 *Time: 08:06 Interval history: Patient states he is feeling better today. He does have some nausea and some pain in his left upper quadrant. He slept off and on last night. He is still n.p.o. and awaiting blood work this morning. He denies any other pain Exam Vital signs and Labs for Last 24 Hours: Temp Pulse Resp BP Pulse Ox 97.5 F L 66 20 104/57 L 93 L 06/02/20 04:00 06/02/20 04:00 06/02/20 04:00 06/02/20 04:00 06/02/20 04:00 Laboratory Results - last 24 hr 06/01/20 12:25: WBC 8.9, RBC 3.76 L, Hgb 10.8 L, Hct 34.7 L, MCV 92.2, MCH 28.8, MCHC 31.2 L, RDW 18.6 H, Plt Count 300, MPV 9.0, Neut % (Auto) 76.7, Lymph % (Auto) 15.7, [place] % (Auto) 5.8, Eos % (Auto) 1.3, Baso % (Auto) 0.5, Neut # (Auto) 6.8, Lymph # (Auto) 1.4, [place] # (Auto) 0.5, Eos # (Auto) 0.1, Baso # (Auto) 0.0 06/01/20 12:25: PT 37.8 H, INR 3.85 H 06/01/20 12:25: Sodium 138, Potassium 4.6, Chloride 103, Carbon Dioxide 28, Anion Gap 11.6, BUN 36 H, Creatinine 0.90, Estimated Creat Clear 93, Estimated GFR 86, Est GFR ( Amer) 104, Glucose 198 H, Calcium 9.0, Total Bilirubin 0.4, AST 30, ALT 35, Alkaline Phosphatase 91, Total Protein 6.9, Albumin 3.8, Globulin 3.1, Albumin/Globulin Ratio 1.2 06/01/20 12:25: Blood Type O Positive, Antibody Screen Negative 06/01/20 12:25: SARS-CoV-2 IgG Ab (Rapid) Negative, SARS-CoV-2 IgM Ab (Rapid) Negative 06/01/20 16:04: POC Glucose 171 H 06/01/20 16:15: Hgb 9.8 L, Hct 30.6 L 06/01/20 21:18: POC Glucose 194 H 06/01/20 22:05: Hgb 9.4 L, Hct 29.1 L 06/02/20 05:50: POC Glucose 176 H I & O for Last 24 hours: Intake & Output 05/30/20 05/31/20 06/01/20 06/02/20 11:59 11:59 11:59 11:59 Intake Total 440 / 440 Balance 440 / 440 Weight 381 lb 380 lb 8 oz - Constitutional no acute distress - *Routine Respiratory Exam Present: CTA bilaterally - *Routine Cardiovascular Exam Present: RRR - *Routine Abdominal Exam Present: soft, normoactive bowel sounds, tenderness (LUQ) - *Routine Extremities Exam Absent: cyanosis, clubbing, edema - *Routine Skin Exam Present: pallor. Absent: rash - *Routine Neurological Exam Present: alert, oriented X3 Assessment and Plan (1) Rectal bleeding Status: Acute Category: Medical Code(s): K62.5 - Hemorrhage of anus and rectum (2) Anemia Status: Acute Qualifiers: Anemia type: iron deficiency Iron deficiency anemia type: chronic blood loss Qualified Code(s): D50.0 - Iron deficiency anemia secondary to blood loss (chronic) Category: Medical Code(s): D64.9 - Anemia, unspecified (3) History of peptic ulcer disease Status: Chronic Category: Medical Code(s): Z87.11 - Personal history of peptic ulcer disease (4) Dizziness Status: Acute Category: Medical Code(s): R42 - Dizziness and giddiness (5) History of DVT (deep vein thrombosis) Status: Chronic Category: Medical Code(s): Z86.718 - Personal history of other venous thrombosis and embolism (6) History of coronary artery stent placement Status: Chronic Category: Surgical Code(s): Z95.5 - Presence of coronary angioplasty implant and graft (7) History of left below knee amputation Status: Chronic Category: Medical Code(s): Z89.512 - Acquired absence of left leg below knee (8) History of mandibular surgery Status: Chronic Category: Surgical Code(s): Z98.890 - Other specified postprocedural states (9) History of pulmonary embolus (PE) Status: Chronic Category: Medical Code(s): Z86.711 - Personal history of pulmonary embolism (10) 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
[2020-06-02 08:23] LABS: Prothrombin Time 44.8 seconds (9.4-11.8)
[2020-06-02 08:24] LABS: INR 4.64 (0.9-1.1)
[2020-06-02 08:45] VITALS: O2SAT 95
--- NOTE | 2020-06-02 09:10 | PC.NURSE ---
CALLED DR KING TO NOTIFY HIM OF PT 44.8 AND INR 4.64. ALSO NOTIFIED HIM THAT PT IS NAUSEOUS AND DIZZY. BP 106/85. HEART RATE 75. ZOFRAN 4MG IV Q 6 HOURS PRN WAS ORDERED.
[2020-06-02 11:22] LABS: POC Glucose,Bedside 217 (70-110)
[2020-06-02 14:30] VITALS: BMI 47.4
[2020-06-02 16:00] VITALS: BP 108/55; PULSE 77; RESP 16; TEMP 36.8; O2SAT 93
--- NOTE | 2020-06-02 17:26 | PC.NURSE ---
A&OX4. PT HAS TOLERATED RA WELL THROUGHOUT SHIFT. RESPIRATIONS REGULAR AND UNLABORED. LUNG SOUNDS CLEAR THROUGHOUT. NO COUGH NOTED. LARGE, SOFT AND TENDER ABDOMEN NOTED. ACTIVE BOWEL SOUNDS HEARD IN ALL 4 QUADRANTS. PT HAS REYES 1 LARGE BM THAT WAS BLACK AND FORMED. PT VOIDS PER BATHROOM AND URINAL WITH BRIGHT YELLOW URINE NOTED. HAND PROP DRAWER EQUAL. +2 PULSES NOTED THROUGHOUT. L BKA NOTED. CDI. SCAR NOTED TO L UPPER ARM. CDI. PT HAS REPORTED BEING DIZZY ON AND OFF THROUGHOUT SHIFT. PT HAS ALSO REPORTED NAUSEA TWICE THUS FAR AND RECEIVED ZOFRAN PER MAR. NO EDMEA NOTED. HAND PROP DRAWER EQUAL. PT IS CURRENTLY LYING IN BED RESTING. BED IN LOWEST POSITION. CALL LIGHT WITHIN REACH. VSS. WILL CONTINUE TO MONITOR.
[2020-06-02 20:00] VITALS: BP 102/48; PULSE 100; RESP 20; TEMP 36.9; O2SAT 91
[2020-06-02 22:04] LABS: POC Glucose,Bedside 181 (70-110)
[2020-06-02 22:04] LABS: POC Glucose,Bedside 175 (70-110)
[2020-06-03] VITALS (41 sets, daily range): BP systolic 76–154; BP diastolic 42–81; PULSE 81–113; RESP 14–20; TEMP 36.2–37.3; O2SAT 92–998; BMI 47.0
[2020-06-03 05:41] LABS: POC Glucose,Bedside 192 (70-110)
--- NOTE | 2020-06-03 06:07 | PC.NURSE ---
Pt A&OX4 lungs CTA. active BS in all 4 quads. pt had one black bm this shift per bedpan. pt has been medicated for nausea x2 per mar this shift. pt has reported being dizzy on and off t/o shift
--- NOTE | 2020-06-03 06:56 | P.PN_ITS ---
Subjective Narrative: Currently dizzy. Continues to have blood per stool. Progress Note: A&P (1) Rectal bleeding Status: Acute (2) Anemia Status: Acute Assessment and plan: Likely continuing to bleed. 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 Status: Chronic (11) Status post coronary artery stent placement Status: Chronic (12) Type 2 diabetes mellitus Status: Chronic (13) Chronic anticoagulation Status: Chronic Exam Vital signs and Labs for Last 24 Hours: Temp Pulse Resp BP Pulse Ox 99.0 F 113 H 20 99/58 L 92 L 06/03/20 04:00 06/03/20 04:00 06/03/20 04:00 06/03/20 04:00 06/03/20 04:00 Laboratory Results - last 24 hr 06/02/20 07:09: WBC 8.5, RBC 3.12 L, Hgb 9.2 L, Hct 29.0 L, MCV 93.0, MCH 29.5, MCHC 31.8, RDW 18.8 H, Plt Count 279, MPV 8.8, Neut % (Auto) 76.6, Lymph % (Auto) 14.9, [place] % (Auto) 5.6, Eos % (Auto) 2.4, Baso % (Auto) 0.6, Neut # (Auto) 6.5, Lymph # (Auto) 1.3, [place] # (Auto) 0.5, Eos # (Auto) 0.2, Baso # (Auto) 0.1 06/02/20 07:09: PT 44.8 H, INR 4.64 H 06/02/20 11:15: POC Glucose 217 H 06/02/20 16:28: POC Glucose 175 H 06/02/20 20:18: POC Glucose 181 H 06/03/20 05:13: POC Glucose 192 H I & O for Last 24 hours: Intake & Output 11/06/01/20 06/02/20 06/03/20 11:59 11:59 11:59 11:59 Intake Total 440 / 440 2545 / 2545 Output Total 650 / 650 Balance 440 / 440 1895 / 1895 Weight 381 lb 380 lb 8 oz 378 lb 5 oz - Constitutional cooperative - *Routine Respiratory Exam Present: respiratory distress - *Routine Cardiovascular Exam Present: tachycardia
--- NOTE | 2020-06-03 07:31 | PC.NURSE ---
07:31 Called into the room by patient. Pt reports being very dizzy like he is going to pass out and he feels like someone is sitting on his chest. He also reports numbness in his arms. BP 106/57, HR 111, 02 96% on RA, and temp of 99.0. Pt had equal hand clay washer and was able to follow commands and was A&OX4. EKG was obtained. Dr. Pandya was doing morning rounds and came into the room. He was updated on the patient and shown the EKG. While he was in the room, lab called with critical lab value of hemaglobin 5.8 and hematocrit 18.8. He ordered for pt to receive 4 units of blood. Blood consent signed and on the chart. 08:30 Lab called and notified this nurse that they would have to draw a new type and screen due to the other one expiring at noon. Lab at bedside obtaining blood now. Miguel anesthesiologist called and wanted to know about situation. Explained type and screen had . 08:40 Dr. Pandya notified. Explained to Dr. Pandya we could give blood emergent if needed due to critical H&H. He stated yes he would like for blood to be administered emergent. Lab notified. 08:44 Lab brought emergent blood to bedside. Blood was verified w Lonnie Castellon RN and started. Pt tolerated well. Lungs remained clear. 10:[address] Pandya to see if it was ok to put in post H&H in to be drawn 1 hour after and see if we could put 2 units on hold in case of an emergency with the patient again. He stated yes and orders were placed. Notified pre op that pt was done with 4 units of blood. 10:30 Consent for EGD signed and placed on chart. Pt taken to pre op for procedure. 15:45 Pt returned from post op with 5th blood transfusion running. Blood was completed at 1600. Pt tolerated well. Pt received zofran once this shift. A&OX4. PT HAS TOLERATED RA WELL THROUGHOUT SHIFT BUT HAS BEEN ON 2L NC SINCE COMING BACK FROM SURGERY. PT HAS HAD NO COMPLAINTS SINCE POST OP. STATES HE FEELS BETTER BUT STILL NOT THE BEST. ACTIVE BOWEL SOUNDS HEARD IN ALL 4 QUADRANTS. SOFT AND TENDER ABDOMEN. NO BM THIS SHIFT. PT VOIDS PER URINAL WITH CLEAR YELLOW URINE NOTED. HAND ADVERTISING DESIGNER EQUAL. +2 PULSES NOTED THROUGHOUT. NO EDEMA NOTED. PT IS CURRENTLY RESTING IN BED SLEEPING W CALL LIGHT WITHIN REACH. BED IN LOWEST POSITION. VSS. WILL CONTINUE TO MONITOR.
[2020-06-03 07:33] LABS: Basophils % 0.5 % (0.1-2.0); Eosinophils % 0.2 % (0.1-12.0); Lymphocytes # 1.7 K/mm3 (0.7-4.5); Lymphocytes % 18.2 % (10-50); Mean Corpuscular HGB Conc 30.6 g/dL (31.8-35.4); Mean Corpuscular Hemoglobin 28.9 pg (27.0-31.2); Mean Corpuscular Volume 94.6 fl (80-94); Mean Platelet Volume 9.2 fl (7.4-10.4); Monocytes # 0.6 K/mm3 (0.1-1.0); Neutrophils # 6.9 K/mm3 (1.8-7.8); Platelet Count 267 K/mm3 (142-424); Red Blood Count 1.99 M/mm3 (4.60-6.20); Red Cell Distribution Width 19.1 % (11.5-17.5); White Blood Count 9.1 K/mm3 (4.8-10.8)
[2020-06-03 07:48] LABS: Hematocrit 18.8 % (42.0-52.0)
--- NOTE | 2020-06-03 07:49 | ECG_ITS ---
APPROVED REPORT Exam: Resting ECG HR:109 bpm ECG Measurements Heart Rate 109 AXES QRSd 84 QRS 41 QT 344 T 42 QTc 463 Conclusion Accelerated Junctional rhythm with occasional premature ventricular complexes Abnormal ECG Electronically signed by : Richie Coulter, 06/04/2020 10:19:46
[2020-06-03 07:59] LABS: Creatine Kinase 71 U/L (55-170); INR 2.75 (0.9-1.1); Prothrombin Time 27.8 seconds (9.4-11.8)
[2020-06-03 08:09] LABS: CKMB Relative Index 1.4 U/L (0-4.0)
[2020-06-03 08:18] LABS: Troponin I < 0.01 ng/ml (0.00-0.034)
--- NOTE | 2020-06-03 08:27 | HMH.ACPN2 ---
<Destiny Farah - Last Filed: 06/03/20 08:27> Internal Medicine - PN: Subj *Date: 06/03/20 *Time: 08:27 Interval history: Patient feels bad this morning. He states he had numerous bloody bowel movements yesterday and this a.m. he feels very short of breath like something is sitting on his chest and his arms are numb. He is extremely pale and cannot move without getting dizzy. Exam Vital signs and Labs for Last 24 Hours: Temp Pulse Resp BP Pulse Ox 99.0 F 113 H 20 99/58 L 92 L 06/03/20 04:00 06/03/20 04:00 06/03/20 04:00 06/03/20 04:00 06/03/20 04:00 Laboratory Results - last 24 hr 06/02/20 11:15: POC Glucose 217 H 06/02/20 16:28: POC Glucose 175 H 06/02/20 20:18: POC Glucose 181 H 06/03/20 05:13: POC Glucose 192 H 06/03/20 07:15: PT 27.8 H, INR 2.75 H 06/03/20 07:15: WBC 9.1, RBC 1.99 L* D, Hct 18.8 L*, MCV 94.6 H, MCH 28.9, MCHC 30.6 L, RDW 19.1 H, Plt Count 267, MPV 9.2, Neut % (Auto) 75.0, Lymph % (Auto) 18.2, [place] % (Auto) 6.0, Eos % (Auto) 0.2, Baso % (Auto) 0.5, Neut # (Auto) 6.9, Lymph # (Auto) 1.7, [place] # (Auto) 0.6, Eos # (Auto) 0.0, Baso # (Auto) 0.0 06/03/20 07:15: Total Creatine Kinase 71, CK-MB (CK-2) 1.0, CK-MB (CK-2) Rel Index 1.4, Troponin I < 0.01 I & O for Last 24 hours: Intake & Output 05/31/20 06/01/20 06/02/20 06/03/20 11:59 11:59 11:59 11:59 Intake Total 440 / 440 2545 / 2545 Output Total 650 / 650 Balance 440 / 440 1895 / 1895 Weight 381 lb 380 lb 8 oz 378 lb 5 oz - Constitutional Comments: Does not appear to feel well. - *Routine Respiratory Exam Present: CTA bilaterally - *Routine Cardiovascular Exam Present: RRR - *Routine Abdominal Exam Present: soft, normoactive bowel sounds, tenderness (Epigastric area and left upper quadrant) - *Routine Extremities Exam Absent: cyanosis, clubbing, edema - *Routine Skin Exam Present: pallor - *Routine Neurological Exam Present: alert, oriented X3 Assessment and Plan (1) Rectal bleeding Status: Acute Category: Medical Code(s): K62.5 - Hemorrhage of anus and rectum (2) Anemia Status: Acute Qualifiers: Anemia type: iron deficiency Iron deficiency anemia type: chronic blood loss Qualified Code(s): D50.0 - Iron deficiency anemia secondary to blood loss (chronic) Category: Medical Code(s): D64.9 - Anemia, unspecified (3) History of peptic ulcer disease Status: Chronic Category: Medical Code(s): Z87.11 - Personal history of peptic ulcer disease (4) Dizziness Status: Acute Category: Medical Code(s): R42 - Dizziness and giddiness (5) History of DVT (deep vein thrombosis) Status: Chronic Category: Medical Code(s): Z86.718 - Personal history of other venous thrombosis and embolism (6) History of coronary artery stent placement Status: Chronic Category: Surgical Code(s): Z95.5 - Presence of coronary angioplasty implant and graft (7) History of left below knee amputation Status: Chronic Category: Medical Code(s): Z89.512 - Acquired absence of left leg below knee (8) History of mandibular surgery Status: Chronic Category: Surgical Code(s): Z98.890 - Other specified postprocedural states (9) History of pulmonary embolus (PE) Status: Chronic Category: Medical Code(s): Z86.711 - Personal history of pulmonary embolism (10) 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
[2020-06-03 08:33] LABS: Hemoglobin 5.8 g/dL (14.1-18.0)
[2020-06-03 11:21] LABS: POC Glucose,Bedside 221 (70-110)
[2020-06-03 11:39] LABS: Hematocrit 28.1 % (42.0-52.0)
--- NOTE | 2020-06-03 14:37 | PC.NURSE ---
all 4 units of blood were verified by Maureen Bryant and Sunni Castellon. This RN is assisting with clinical data specialist, blood was issued emergently r/t critically low H/H. verification and completion have been back charted by myself.
--- NOTE | 2020-06-03 14:50 | SUR.PHASEII ---
1450-Dr Tovar ordered 1 unit PRBC to be started now. 1458-BWrandi INSTRUMENT WORKER started 1 unit PRBC wide open (no pump used) Blood scan and verified by Glenna MENDOZA and Brian MENDOZA. Vital recorded and documented by Katey 1523-report called to 2nd floor Nicholas MENDOZA took report for January Bryant RN pt stable and transferred to floor. Pt placed on O2 /2L NC and datascope applied for vitals. Pt VSS IV patent .\Pt stated he was comfortable and Nicholas MENDOZA at Instructed I would document 1433 vitals
--- NOTE | 2020-06-03 15:26 | HMH.SCOPE ---
- Procedure: Date: 06/03/20 Patient Date of :: 1960 Procedure Performed:: Esophagogastroduodenoscopy with epinephrine injection Indications:: Gastrointestinal hemorrhage Prepyloric ulcer Performing Provider:: Clem Tovar MD Referring Provider:: Dr. Pandya Sedation:: Monitored anesthesia care Procedure:: After informed consent was obtained the patient was taken to the endoscopy suite. Sedation ensued after the patient was transferred to the left lateral decubitus position. Pulse, blood pressure, and oxygen saturation were monitored throughout the procedure. The endoscope was advanced beyond the duodenal bulb. Retroflexion within the gastric lumen was accomplished. The gastroscope was carefully removed and the patient was transferred to recovery in stable condition. Please see findings and specimens below for detail. Findings:: Large bulbous clot overlying prepyloric ulcer Sanguinous ooze around base of clot Bulbous clot evacuated leaving fresh clot within base with punctate sanguinous ooze Epinephrine injection circumferentially around ulcer margin and directly at point of sanguinous ooze (4.5 mL) No active bleed/sanguinous ooze noted after epinephrine injection Specimens:: None Recommendations:: Serial hemoglobin/hematocrit Proton pump inhibition (if cleared by ergonomics consultant/oncologist) Complications:: No immediate Estimated blood obtained (mL): 0 Comment:: No blood loss from procedure directly; however, there was some ongoing sanguinous ooze prior to epinephrine injection.
--- NOTE | 2020-06-03 15:33 | P.PN_ITS ---
[facility] Anesthesia Checklist - Patient Identification Patient Identification: Arm Band, Verbal (Name & ) - Structural Data Admitted From: Inpatient Planned Operative Procedure/s: EGD Consent for Planned Operative Procedure(s) Verified: Yes Verified Documents: Surgical Consent, History and Physical - NPO Status Verified Time NPO: 00:00 - Chart Verification Results Verified: CBC, BMP, PT, PTT, INR - Additional verifications Anesthesia Reactions: No Hx Blood Transfusions: No Blood Transfusion Reaction: No - Airway Assessment C-Spine Mobility Assessed: Yes (MP 4, thick neck, stiff neck) TMJ Mobility Assessed: Yes Dentition: Good Dentition - Neurological Assessment Level of Consciousness: Awake, Alert, Appropriate, Follows Commands Hx Seizures: No Numbness or tingling in extremities: Yes - Anesthesia Plan Anesthesia Risk discussed: Yes Anesthesia Plan: Verified ASA Class: IV (Emergent) Anesthesia Type: MAC [facility] History I have reviewed the patient's past medical history: Yes Medical History: Reports:: Asthma, Atherosclerotic Heart Disease, Atrial Fibrillation, Cancer (STAGE 4 THYROID), Coronary Artery Disease, Deep Vein Thrombosis, Diabetes Mellitus Type 2, Heart Murmur, Hyperlipidemia, Hypertension, Myocardial Infarction, Peripheral Artery Disease, Pulmonary Embolism, Ulcer Denies:: Diabetes Mellitus Type 1, Internal Pacemaker, MRSA, Seizures *Have you ever received a pneumonia vaccine?: Yes *Have you received a flu vaccine this season?: Yes Other Medical History: Reports: Anemia, Arthritis, Chemotherapy, Hoarseness, Hypothyroidism, Sinus Problems, Thyroid Disease, Other. Denies: Blood Transfusion Reaction Anesthesia experience/problems:: none Laterality Cases: Left: Other, Bilateral: Tonsillectomy Other Surgeries: Yes: Cancer Surgery (THYROID), Cardiac Catheterization, Cardiac Surgery, Cholecystectomy, Colonoscopy, Coronary Stent, EGD, Thyroidectomy, Other (left leg amputation). No: Pacemaker Amputation: Yes Fractures: No - *Social History Last grade of school completed: 11th or 12th Smoking Status: Smoker, status unknown Tobacco Type: cigarettes Alcohol Intake: never Alcohol Intake Frequency:: 0-2 drinks per day Substance Use Type: denies use *Occupational Status:: retired, disabled Housing: house Household Members: spouse *Travel in the last 8 weeks: None Family Hx:: Unable to obtain
--- NOTE | 2020-06-03 15:56 | SUR.PHASEII ---
see blood infusion vitals for postop vitals
[2020-06-03 17:27] LABS: POC Glucose,Bedside 210 (70-110)
[2020-06-03 17:50] LABS: Hematocrit 29.7 % (42.0-52.0); Hemoglobin 9.5 g/dL (14.1-18.0)
[2020-06-03 20:59] LABS: POC Glucose,Bedside 249 (70-110)
[2020-06-03 22:24] LABS: Hemoglobin 9.1 g/dL (14.1-18.0)
[2020-06-04] VITALS (12 sets, daily range): BP systolic 92–143; BP diastolic 43–73; PULSE 71–83; RESP 16–20; TEMP 36.4–37.2; O2SAT 90–97; BMI 48.2
[2020-06-04 05:29] LABS: POC Glucose,Bedside 196 (70-110)
--- NOTE | 2020-06-04 05:30 | PC.NURSE ---
pt A&OX4 lungs CTA. BS active in all quads. No BM this shift. pt has voided per urinal. pt medicated for pain per MAR x 3 this shift. pt has rested at intervals this shift.
--- NOTE | 2020-06-04 06:48 | HMH.GSPN ---
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 Follow-up morning hemoglobin/hematocrit May require repeat EGD with treatment modalities Proton pump inhibition if/when cleared by endocrinology/oncology Exam Vital signs and Labs for Last 24 Hours: Temp Pulse Resp BP Pulse Ox 98.1 F 73 20 111/65 94 L 06/04/20 04:00 06/04/20 04:00 06/04/20 04:00 06/04/20 04:00 06/04/20 04:00 Laboratory Results - last 24 hr 06/03/20 07:15: PT 27.8 H, INR 2.75 H 06/03/20 07:15: WBC 9.1, RBC 1.99 L* D, Hgb 5.8 L*, Hct 18.8 L*, MCV 94.6 H, MCH 28.9, MCHC 30.6 L, RDW 19.1 H, Plt Count 267, MPV 9.2, Neut % (Auto) 75.0, Lymph % (Auto) 18.2, [place] % (Auto) 6.0, Eos % (Auto) 0.2, Baso % (Auto) 0.5, Neut # (Auto) 6.9, Lymph # (Auto) 1.7, [place] # (Auto) 0.6, Eos # (Auto) 0.0, Baso # (Auto) 0.0 06/03/20 07:15: Total Creatine Kinase 71, CK-MB (CK-2) 1.0, CK-MB (CK-2) Rel Index 1.4, Troponin I < 0.01 06/03/20 07:55: Blood Type O Positive, Antibody Screen Negative, Crossmatch (AHG) See Detail 06/03/20 11:14: POC Glucose 221 H 06/03/20 11:30: Hgb 9.0 L D, Hct 28.1 L 06/03/20 17:20: POC Glucose 210 H 06/03/20 17:35: Hgb 9.5 L, Hct 29.7 L 06/03/20 20:38: POC Glucose 249 H 06/03/20 22:05: Hgb 9.1 L, Hct 28.0 L 06/04/20 05:10: POC Glucose 196 H I & O for Last 24 hours: Intake & Output 06/01/20 06/02/20 06/03/20 06/04/20 11:59 11:59 11:59 11:59 Intake Total 440 / 440 2545 / 2545 2910 / 2910 Output Total 650 / 650 1450 / 1450 Balance 440 / 440 1895 / 1895 1460 / 1460 Weight 381 lb 380 lb 8 oz 378 lb 5 oz 387 lb 6 oz - Constitutional no acute distress - *Routine Respiratory Exam Absent: respiratory distress - *Routine Cardiovascular Exam Present: RRR
[2020-06-04 07:36] LABS: Basophils % 0.4 % (0.1-2.0); Eosinophils # 0.1 K/mm3 (0.0-0.4); Eosinophils % 1.4 % (0.1-12.0); Hematocrit 27.6 % (42.0-52.0); Hemoglobin 9.1 g/dL (14.1-18.0); Lymphocytes # 1.2 K/mm3 (0.7-4.5); Lymphocytes % 16.2 % (10-50); Mean Corpuscular HGB Conc 32.9 g/dL (31.8-35.4); Mean Corpuscular Hemoglobin 29.2 pg (27.0-31.2); Mean Corpuscular Volume 88.7 fl (80-94); Mean Platelet Volume 8.6 fl (7.4-10.4); Monocytes # 0.5 K/mm3 (0.1-1.0); Monocytes % 6.7 % (1.7-9.3); Neutrophils # 5.7 K/mm3 (1.8-7.8); Neutrophils % 75.3 % (37.0-80.0); Platelet Count 218 K/mm3 (142-424); Red Blood Count 3.12 M/mm3 (4.60-6.20); White Blood Count 7.6 K/mm3 (4.8-10.8)
--- NOTE | 2020-06-04 08:43 | HMH.ACPN2 ---
<Destiny Farah - Last Filed: 06/04/20 08:43> Internal Medicine - PN: Subj *Date: 06/04/20 *Time: 08:43 Interval history: Patient feels much better today. His color has improved and he no longer has shortness of breath or weakness. He states has not had a bowel movement since yesterday. He slept well last night. Exam Vital signs and Labs for Last 24 Hours: Temp Pulse Resp BP Pulse Ox 98.1 F 73 20 111/65 94 L 06/04/20 04:00 06/04/20 04:00 06/04/20 04:00 06/04/20 04:00 06/04/20 04:00 Laboratory Results - last 24 hr 06/03/20 07:55: Blood Type O Positive, Antibody Screen Negative, Crossmatch (AHG) See Detail 06/03/20 11:14: POC Glucose 221 H 06/03/20 11:30: Hgb 9.0 L D, Hct 28.1 L 06/03/20 17:20: POC Glucose 210 H 06/03/20 17:35: Hgb 9.5 L, Hct 29.7 L 06/03/20 20:38: POC Glucose 249 H 06/03/20 22:05: Hgb 9.1 L, Hct 28.0 L 06/04/20 05:10: POC Glucose 196 H 06/04/20 07:17: WBC 7.6, RBC 3.12 L D, Hgb 9.1 L, Hct 27.6 L, MCV 88.7, MCH 29.2, MCHC 32.9, RDW 18.0 H, Plt Count 218, MPV 8.6, Neut % (Auto) 75.3, Lymph % (Auto) 16.2, [place] % (Auto) 6.7, Eos % (Auto) 1.4, Baso % (Auto) 0.4, Neut # (Auto) 5.7, Lymph # (Auto) 1.2, [place] # (Auto) 0.5, Eos # (Auto) 0.1, Baso # (Auto) 0.0 I & O for Last 24 hours: Intake & Output 06/01/20 06/02/20 06/03/20 06/04/20 11:59 11:59 11:59 11:59 Intake Total 440 / 440 2545 / 2545 2910 / 2910 Output Total 650 / 650 1550 / 1550 Balance 440 / 440 1895 / 1895 1360 / 1360 Weight 381 lb 380 lb 8 oz 378 lb 5 oz 387 lb 6 oz - Constitutional no acute distress - *Routine Respiratory Exam Present: CTA bilaterally - *Routine Cardiovascular Exam Present: RRR - *Routine Abdominal Exam Present: soft, normoactive bowel sounds. Absent: tenderness - *Routine Extremities Exam Absent: cyanosis, clubbing, edema - *Routine Skin Exam Present: pallor Assessment and Plan (1) Rectal bleeding Status: Acute Category: Medical Code(s): K62.5 - Hemorrhage of anus and rectum (2) Anemia Status: Acute Qualifiers: Anemia type: iron deficiency Iron deficiency anemia type: chronic blood loss Qualified Code(s): D50.0 - Iron deficiency anemia secondary to blood loss (chronic) Category: Medical Code(s): D64.9 - Anemia, unspecified (3) History of peptic ulcer disease Status: Chronic Category: Medical Code(s): Z87.11 - Personal history of peptic ulcer disease (4) Dizziness Status: Acute Category: Medical Code(s): R42 - Dizziness and giddiness (5) History of DVT (deep vein thrombosis) Status: Chronic Category: Medical Code(s): Z86.718 - Personal history of other venous thrombosis and embolism (6) History of coronary artery stent placement Status: Chronic Category: Surgical Code(s): Z95.5 - Presence of coronary angioplasty implant and graft (7) History of left below knee amputation Status: Chronic Category: Medical Code(s): Z89.512 - Acquired absence of left leg below knee (8) History of mandibular surgery Status: Chronic Category: Surgical Code(s): Z98.890 - Other specified postprocedural states (9) History of pulmonary embolus (PE) Status: Chronic Category: Medical Code(s): Z86.711 - Personal history of pulmonary embolism (10) 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etes mellitus Status: Chronic Qualifiers: Diabetes mellitus oil heaterman insulin use: with nursing home use Diabetes mellitus complication status: with other specified complication Qualified Code(s): E11.69 - Type 2 diabetes mellitus with other specified complication; Z79.4 - assisted (current) use of insulin Category:
[2020-06-04 11:38] LABS: POC Glucose,Bedside 170 (70-110)
[2020-06-04 13:25] LABS: Hematocrit 27.7 % (42.0-52.0); Hemoglobin 8.8 g/dL (14.1-18.0)
--- NOTE | 2020-06-04 13:59 | DIET.NUTRFU ---
Pt states abdominal symptoms greatly improved. Diet advanced to full liquids, pt states he tolerated first meal well. BG moderate-high- ~220. Post op weight gain 6#. Glucerna BID added to diet order at this time. Will continue to monitor.
[2020-06-04 16:37] LABS: POC Glucose,Bedside 198 (70-110)
--- NOTE | 2020-06-04 19:28 | PC.NURSE ---
PATIENT A&O X4, LUNGS CLEAR, PULSES EQUAL. PATIENT AMBULATED TO RESTROOM DURING THIS RN SHIFT. PATIENT HAD A LARGE AMOUNT OF BLACK STOOL WITH FOUL SMELL. THIS RN REPORTED FINDINGS TO DR. ARROYO. NO NEW ORDERS. PATIENT TOLERATED MEALS. NO NEW CONCERNS AT THIS TIME.
[2020-06-04 22:18] LABS: Hematocrit 24.5 % (42.0-52.0); Hemoglobin 8.2 g/dL (14.1-18.0)
[2020-06-04 23:15] LABS: POC Glucose,Bedside 152 (70-110)
[2020-06-05] VITALS (9 sets, daily range): BP systolic 99–176; BP diastolic 31–86; PULSE 68–79; RESP 16–20; TEMP 36.6–37.5; O2SAT 93–96; BMI 47.7
[2020-06-05 03:51] LABS: Hematocrit 27.5 % (42.0-52.0)
[2020-06-05 04:00] LABS: Hemoglobin 9.1 g/dL (14.1-18.0)
[2020-06-05 06:48] LABS: POC Glucose,Bedside 134 (70-110)
--- NOTE | 2020-06-05 07:39 | PC.NURSE ---
Addendum entered by Jeanine De La O RN 06/05/20 08:03: In addition, MD Smith was notified this shift to clarify pt's transfusion orders. MD Smith confirmed to proceed with transfusion. Original Note: Pt is A&Ox4. Lung sounds CTA. No edema noted. Pt 2200 H&H required (1) unit of PRBC. 1 unit administered with no complications. Pt did c/o chronic back pain x2 this shift. PRN meds administered per AUG. Pt had multiple dark red/black tarry stools this shift. No other acute changes or complaints. Will continue to monitor.
--- NOTE | 2020-06-05 08:45 | HMH.GSPN ---
Subjective Patient reports: no new complaints Narrative: Has had some melenic stools. 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 Appropriate response to last unit. No indication for immediate repeat EGD. Exam Vital signs and Labs for Last 24 Hours: Temp Pulse Resp BP Pulse Ox 98.6 F 75 16 129/45 L 93 L 06/05/20 08:00 06/05/20 08:00 06/05/20 08:00 06/05/20 08:00 06/05/20 08:00 Laboratory Results - last 24 hr 06/03/20 07:55: Blood Type O Positive, Antibody Screen Negative, Crossmatch (AHG) See Detail 06/04/20 11:30: POC Glucose 170 H 06/04/20 13:10: Hgb 8.8 L, Hct 27.7 L 06/04/20 16:30: POC Glucose 198 H 06/04/20 22:05: Hgb 8.2 L, Hct 24.5 L 06/04/20 22:15: POC Glucose 152 H 06/05/20 03:45: Hgb 9.1 L D, Hct 27.5 L 06/05/20 06:30: POC Glucose 134 H I & O for Last 24 hours: Intake & Output 06/02/20 06/03/20 06/04/20 06/05/20 11:59 11:59 11:59 11:59 Intake Total 440 / 440 2545 / 2545 2910 / 2910 3143 / 3143 Output Total 650 / 650 2100 / 2100 550 / 550 Balance 440 / 440 1895 / 1895 810 / 810 2593 / 2593 Weight 380 lb 8 oz 378 lb 5 oz 387 lb 6 oz 384 lb 2 oz - *Routine Abdominal Exam Present: soft
--- NOTE | 2020-06-05 08:55 | HMH.ACPN2 ---
<Destiny Farah - Last Filed: 06/05/20 08:55> Internal Medicine - PN: Subj *Date: 06/05/20 *Time: 08:55 Interval history: Patient is feeling a little bit better today. He does complain of some nausea this morning and request Zofran. He received another unit of blood last night and responded appropriately. His H&H is up this morning but will need to be monitored. Dr. Novoa has seen the patient and did order a diet. Exam Vital signs and Labs for Last 24 Hours: Temp Pulse Resp BP Pulse Ox 98.6 F 75 16 129/45 L 93 L 06/05/20 08:00 06/05/20 08:00 06/05/20 08:00 06/05/20 08:00 06/05/20 08:00 Laboratory Results - last 24 hr 06/03/20 07:55: Blood Type O Positive, Antibody Screen Negative, Crossmatch (AHG) See Detail 06/04/20 11:30: POC Glucose 170 H 06/04/20 13:10: Hgb 8.8 L, Hct 27.7 L 06/04/20 16:30: POC Glucose 198 H 06/04/20 22:05: Hgb 8.2 L, Hct 24.5 L 06/04/20 22:15: POC Glucose 152 H 06/05/20 03:45: Hgb 9.1 L D, Hct 27.5 L 06/05/20 06:30: POC Glucose 134 H I & O for Last 24 hours: Intake & Output 06/02/20 06/03/20 06/04/20 06/05/20 11:59 11:59 11:59 11:59 Intake Total 440 / 440 2545 / 2545 2910 / 2910 3143 / 3143 Output Total 650 / 650 2100 / 2100 550 / 550 Balance 440 / 440 1895 / 1895 810 / 810 2593 / 2593 Weight 380 lb 8 oz 378 lb 5 oz 387 lb 6 oz 384 lb 2 oz - Constitutional no acute distress - *Routine Respiratory Exam Present: CTA bilaterally - *Routine Cardiovascular Exam Present: RRR - *Routine Abdominal Exam Present: soft, normoactive bowel sounds. Absent: tenderness - *Routine Extremities Exam Absent: cyanosis (Look better anywhere), clubbing, edema - *Routine Skin Exam Present: pallor - *Routine Neurological Exam Present: alert, oriented X3 Assessment and Plan (1) Rectal bleeding Status: Acute Category: Medical Code(s): K62.5 - Hemorrhage of anus and rectum (2) Anemia Status: Acute Qualifiers: Anemia type: iron deficiency Iron deficiency anemia type: chronic blood loss Qualified Code(s): D50.0 - Iron deficiency anemia secondary to blood loss (chronic) Category: Medical Code(s): D64.9 - Anemia, unspecified (3) History of peptic ulcer disease Status: Chronic Category: Medical Code(s): Z87.11 - Personal history of peptic ulcer disease (4) Dizziness Status: Acute Category: Medical Code(s): R42 - Dizziness and giddiness (5) History of DVT (deep vein thrombosis) Status: Chronic Category: Medical Code(s): Z86.718 - Personal history of other venous thrombosis and embolism (6) History of coronary artery stent placement Status: Chronic Category: Surgical Code(s): Z95.5 - Presence of coronary angioplasty implant and graft (7) History of left below knee amputation Status: Chronic Category: Medical Code(s): Z89.512 - Acquired absence of left leg below knee (8) History of mandibular surgery Status: Chronic Category: Surgical Code(s): Z98.890 - Other specified postprocedural states (9) History of pulmonary embolus (PE) Status: Chronic Category: Medical Code(s): Z86.711 - Personal history of pulmonary embolism (10) 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etes mellitus Status: Chronic Qualifiers: Diabetes mellitus predatory animal exterminator insulin use: with [facility] use Diabetes mellitus complication status: with other specified complication Qualified Code(s): E11.69 - Type 2 diabetes mellitus with other specified complication; Z79.4 - predatory animal exterminator (current) use of insulin Category: Medical Code(s): E11.9 - Type 2 diabetes mellitus without complications (13) Chronic ant
[2020-06-05 10:25] LABS: Hematocrit 26.5 % (42.0-52.0); Hemoglobin 8.8 g/dL (14.1-18.0)
[2020-06-05 11:52] LABS: POC Glucose,Bedside 253 (70-110)
[2020-06-05 15:41] LABS: Hemoglobin 8.2 g/dL (14.1-18.0)
[2020-06-05 16:27] LABS: POC Glucose,Bedside 140 (70-110)
--- NOTE | 2020-06-05 19:45 | PC.NURSE ---
DURING AM ROUNDS, THIS RN INQUIRED ABOUT BLOOD TRANSFUSION ORDER WITH DR. PHELPS. PER MD, ORDER IS NOT A STANDING ORDER. ORDER WAS FOR THAT DAY ONLY. MD WILL MONITOR H&H AND ORDER BLOOD WHEN NECESSARY. PATIENT A&O X4, LUNGS CLEAR, PULSES EQUAL. PATIENT TOLERATED MEALS, UP TO RESTROOM 3X DURING THIS RN SHIFT. PATIENT IS WEAK WHEN AMBULATING. THIS RN ENCOURAGE PATIENT TO USE BEDSIDE COMMODE FOR SAFETY REASONS. PATIENT STATED THAT HE IS FINE. THIS RN EDUCATED PATIENT IN REGARDS TO PREVENT FALLING. PATIENT VERBALIZED AN UNDERSTANDING AND STATED THAT HE CAN WALK TO THE RESTROOM. THIS RN SPOKE WITH DR. KING IN REGARDS TO PATIENT VOICING CONCERN ABOUT HIS HGB 8.2. NO NEW ORDERS. NO OTHER CONCERNS AT THIS TIME.
[2020-06-05 22:33] LABS: POC Glucose,Bedside 189 (70-110)
[2020-06-05 22:49] LABS: Hematocrit 25.8 % (42.0-52.0)
[2020-06-05 23:02] LABS: Hemoglobin 7.9 g/dL (14.1-18.0)
--- NOTE | 2020-06-05 23:30 | PC.NURSE ---
Addendum entered by Jennifer Sims RN 06/06/20 02:26: orders received; see md notification Original Note: [id number]- paged mehnaz about critical hg result of 7.9; awaiting page
[2020-06-06] VITALS (29 sets, daily range): BP systolic 106–153; BP diastolic 35–78; PULSE 62–81; RESP 16–20; TEMP 36.3–37.2; O2SAT 93–98; BMI 48.4
[2020-06-06 06:11] LABS: POC Glucose,Bedside 143 (70-110)
[2020-06-06 08:02] LABS: Hematocrit 28.1 % (42.0-52.0)
[2020-06-06 08:16] LABS: INR 1.08 (0.9-1.1); Prothrombin Time 11.9 seconds (9.4-11.8)
--- NOTE | 2020-06-06 08:38 | HMH.GSPN ---
Subjective Narrative: Patient states that he actually feels better since he has had a diet. However, he showed decreasing hemoglobin hematocrit overnight and required an additional 2 units of packed red blood cells transfusion last night for hemoglobin of 7.9. Posttransfusion hemoglobin this morning is 9.0. He has still had melanic stools. 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 Coagulation profile has normalized this morning. Exam Vital signs and Labs for Last 24 Hours: Temp Pulse Resp BP Pulse Ox 98.3 F 75 18 130/75 94 L 06/06/20 08:00 06/06/20 08:00 06/06/20 08:00 06/06/20 08:00 06/06/20 08:00 Laboratory Results - last 24 hr 06/03/20 07:55: Blood Type O Positive, Antibody Screen Negative, Crossmatch (AHG) See Detail 06/05/20 10:00: Hgb 8.8 L, Hct 26.5 L 06/05/20 11:45: POC Glucose 253 H 06/05/20 15:25: Hgb 8.2 L, Hct 26.0 L 06/05/20 16:14: POC Glucose 140 H 06/05/20 21:52: POC Glucose 189 H 06/05/20 22:40: Hgb 7.9 L*, Hct 25.8 L 06/06/20 05:53: POC Glucose 143 H 06/06/20 07:34: PT 11.9 H, INR 1.08 06/06/20 07:34: Hgb 9.0 L D, Hct 28.1 L I & O for Last 24 hours: Intake & Output 06/03/20 06/04/20 06/05/20 06/06/20 11:59 11:59 11:59 11:59 Intake Total 2545 / 2545 2910 / 2910 3143 / 3143 215 / 2157 Output Total 650 / 650 2100 / 2100 550 / 550 Balance 1895 / 1895 810 / 810 2593 / 2593 2156 / 2156 Weight 378 lb 5 oz 387 lb 6 oz 384 lb 2 oz 390 lb 1 oz - Constitutional Comments: Patient appears pale.
--- NOTE | 2020-06-06 09:04 | HMH.ACPN2 ---
Internal Medicine - PN: Subj *Date: 06/06/20 *Time: 09:04 Interval history: Hemoglobin dropped to 7.9 last evening and he received 2 more units of blood overnight. He is sitting up in the chair this morning and states he feels pretty good . Denies abdominal pain. He continues to have dark stools. Exam Vital signs and Labs for Last 24 Hours: Temp Pulse Resp BP Pulse Ox 98.3 F 75 18 130/75 94 L 06/06/20 08:00 06/06/20 08:00 06/06/20 08:00 06/06/20 08:00 06/06/20 08:00 Laboratory Results - last 24 hr 06/03/20 07:55: Blood Type O Positive, Antibody Screen Negative, Crossmatch (AHG) See Detail 06/05/20 10:00: Hgb 8.8 L, Hct 26.5 L 06/05/20 11:45: POC Glucose 253 H 06/05/20 15:25: Hgb 8.2 L, Hct 26.0 L 06/05/20 16:14: POC Glucose 140 H 06/05/20 21:52: POC Glucose 189 H 06/05/20 22:40: Hgb 7.9 L*, Hct 25.8 L 06/06/20 05:53: POC Glucose 143 H 06/06/20 07:34: PT 11.9 H, INR 1.08 06/06/20 07:34: Hgb 9.0 L D, Hct 28.1 L I & O for Last 24 hours: Intake & Output 06/03/20 06/04/20 06/05/20 06/06/20 11:59 11:59 11:59 11:59 Intake Total 2545 / 2545 2910 / 2910 3143 / 3143 2156 Output Total 650 / 650 2100 / 2100 550 / 550 Balance 1895 / 1895 810 / 810 2593 / 2593 2156 Weight 378 lb 5 oz 387 lb 6 oz 384 lb 2 oz 390 lb 1 oz Narrative: Color remains pale but improved. Lungs are clear. Heart is regular. Abdomen is obese, soft, nondistended and nontender. Assessment and Plan (1) Rectal bleeding Status: Acute Category: Medical Code(s): K62.5 - Hemorrhage of anus and rectum (2) Anemia Status: Acute Qualifiers: Anemia type: iron deficiency Iron deficiency anemia type: chronic blood loss Qualified Code(s): D50.0 - Iron deficiency anemia secondary to blood loss (chronic) Category: Medical Code(s): D64.9 - Anemia, unspecified (3) History of peptic ulcer disease Status: Chronic Category: Medical Code(s): Z87.11 - Personal history of peptic ulcer disease (4) Dizziness Status: Acute Category: Medical Code(s): R42 - Dizziness and giddiness (5) History of DVT (deep vein thrombosis) Status: Chronic Category: Medical Code(s): Z86.718 - Personal history of other venous thrombosis and embolism (6) History of coronary artery stent placement Status: Chronic Category: Surgical Code(s): Z95.5 - Presence of coronary angioplasty implant and graft (7) History of left below knee amputation Status: Chronic Category: Medical Code(s): Z89.512 - Acquired absence of left leg below knee (8) History of mandibular surgery Status: Chronic Category: Surgical Code(s): Z98.890 - Other specified postprocedural states (9) History of pulmonary embolus (PE) Status: Chronic Category: Medical Code(s): Z86.711 - Personal history of pulmonary embolism (10) 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etes mellitus Status: Chronic Qualifiers: Diabetes mellitus custodial insulin use: with custodial use Diabetes mellitus complication status: with other specified complication Qualified Code(s): E11.69 - Type 2 diabetes mellitus with other specified complication; Z79.4 - [facility] (current) use of insulin Category: Medical Code(s): E11.9 - Type 2 diabetes mellitus without complications (13) Chronic anticoagulation Status: Chronic Category: Medical Code(s): Z79.01 - french drawer (current) use of anticoagulants (14) Prepyloric ulcer Status: Acute Category: Medical Code(s): K25.9 - Gastric ulcer, unspecified as acute or chronic, without hemorrhage or perforation - Assessment and plan all Dx Assessment and Plan
--- NOTE | 2020-06-06 11:18 | P.PCN_ITS ---
- Procedure: Date: 06/06/20 Patient Date of :: 1960 Procedure Performed:: Esophagogastroduodenoscopy Indications:: Patient is a 59-year-old male who has history of ulcer. He had developed clinical upper GI bleeding and underwent upper endoscopy on 06/03/[address] Tovar and was found to have prepyloric ulcer with stigmata of recent bleeding with adherent clot. Epinephrine injection was performed. Over his hospital course she is required a total of 8 units transfusion with most recent transfusion resulting in hemoglobin increase from 7.9-9.0 after 2 units. Due to the findings on index endoscopy and suboptimal response to 2 unit transfusion plan was for follow-up EGD. Performing Provider:: Vlad Novoa MD Referring Provider:: Santino Pandya MD Sedation:: MAC sedation Procedure:: Patient was taken to endoscopy procedure room. He was positioned in lateral decubitus position. Adequate intravenous sedation was achieved. Olympus en doscope was inserted via the oropharynx advanced through the esophagus. Stomach was cannulated and insufflated. There was noted to be moderate sized but deep prepyloric ulcer. There were a couple of adjacent more shallow linear ulcerations. Endoscope was able to be advanced beyond the pylorus. Duodenal bulb and duodenal sweep appeared unremarkable. Endoscope withdrawn into the gastric lumen. Thorough irrigation was performed. Ulcer was deep and somewhat inflamed. However, there was no active bleeding. There was relatively clean- based exudate. There was no notable visible vessel and no obvious pigmented spot. Stomach was desufflated and the endoscope was withdrawn. Findings:: Nonbleeding inflamed prepyloric ulcer with a couple of adjacent shallow linear ulcerations Recommendations:: Continue medical therapy. Complications:: None immediately apparent Estimated blood obtained (mL): 0
[2020-06-06 14:19] LABS: Hematocrit 29.2 % (42.0-52.0); Hemoglobin 9.4 g/dL (14.1-18.0)
[2020-06-06 16:50] LABS: POC Glucose,Bedside 175 (70-110)
[2020-06-06 16:50] LABS: POC Glucose,Bedside 156 (70-110)
--- NOTE | 2020-06-06 20:24 | PC.NURSE ---
PATIENT A&O X4, LUNGS CLEAR, PULSES EQUAL. PATIENT TOLERATED EGD WELL. VITALS REMAINED WNL. PATIENT REFUSED LAST VITAL FOR POST OP. PATIENT STATED HE IS FINE. PATIENT CONTINUES TO BE UNSTEADY ON FEET WHEN AMBULATING TO RESTROOM. PATIENT RUSHES TO RESTROOM, THIS RN EDUCATED PATIENT IN REGARDS TO SLOWING DOWN AND LOOKING FORWARD WHEN AMBULATING. PATIENT VERBALIZED AN UNDERSTANDING. NO NEW CONCERNS AT THIS TIME.
[2020-06-06 20:36] LABS: POC Glucose,Bedside 167 (70-110)
[2020-06-06 22:26] LABS: Hematocrit 28.7 % (42.0-52.0); Hemoglobin 9.6 g/dL (14.1-18.0)
--- NOTE | 2020-06-07 03:44 | PC.NURSE ---
Pt. has had 1 loose, black tarry bm this shift. Abd distended, pt. denies tenderness. Pt. has not c/o n/v or soa this shift. C/o back pain x3 this shift; tx with prn meds. Tolerating FLD.
[2020-06-07 04:00] VITALS: BP 112/44; PULSE 80; RESP 14; TEMP 36.9; O2SAT 93
[2020-06-07 05:26] VITALS: BMI 48.6
[2020-06-07 06:40] LABS: POC Glucose,Bedside 141 (70-110)
[2020-06-07 07:37] LABS: Basophils % 0.4 % (0.1-2.0); Eosinophils # 0.1 K/mm3 (0.0-0.4); Lymphocytes # 0.9 K/mm3 (0.7-4.5); Lymphocytes % 12.7 % (10-50); Mean Corpuscular HGB Conc 32.2 g/dL (31.8-35.4); Mean Corpuscular Hemoglobin 28.8 pg (27.0-31.2); Mean Corpuscular Volume 89.4 fl (80-94); Mean Platelet Volume 8.8 fl (7.4-10.4); Monocytes # 0.5 K/mm3 (0.1-1.0); Monocytes % 6.4 % (1.7-9.3); Neutrophils # 5.6 K/mm3 (1.8-7.8); Neutrophils % 78.5 % (37.0-80.0); Platelet Count 237 K/mm3 (142-424); Red Blood Count 3.47 M/mm3 (4.60-6.20); Red Cell Distribution Width 18.8 % (11.5-17.5); White Blood Count 7.2 K/mm3 (4.8-10.8)
[2020-06-07 08:00] VITALS: BP 133/79; PULSE 75; RESP 18; TEMP 37.1; O2SAT 95
--- NOTE | 2020-06-07 08:20 | HMH.GSPN ---
Subjective Patient reports: no new complaints Narrative: STill having some black stools. Feels well. 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 Monitor H&H for stability for approximately 24 hours and may be able to discharge on medical therapy. Exam Vital signs and Labs for Last 24 Hours: Temp Pulse Resp BP Pulse Ox 98.4 F 80 14 112/44 L 93 L 06/07/20 04:00 06/07/20 04:00 06/07/20 04:00 06/07/20 04:00 06/07/20 04:00 Laboratory Results - last 24 hr 06/06/20 11:55: POC Glucose 156 H 06/06/20 14:10: Hgb 9.4 L, Hct 29.2 L 06/06/20 16:41: POC Glucose 175 H 06/06/20 20:19: POC Glucose 167 H 06/06/20 22:00: Hgb 9.6 L, Hct 28.7 L 06/07/20 06:11: POC Glucose 141 H 06/07/20 06:32: WBC 7.2, RBC 3.47 L, Hgb 10.0 L, Hct 31.0 L, MCV 89.4, MCH 28.8, MCHC 32.2, RDW 18.8 H, Plt Count 237, MPV 8.8, Neut % (Auto) 78.5, Lymph % (Auto) 12.7, [place] % (Auto) 6.4, Eos % (Auto) 2.0, Baso % (Auto) 0.4, Neut # (Auto) 5.6, Lymph # (Auto) 0.9, [place] # (Auto) 0.5, Eos # (Auto) 0.1, Baso # (Auto) 0.0 I & O for Last 24 hours: Intake & Output 06/04/20 06/05/20 06/06/20 06/07/20 11:59 11:59 11:59 11:59 Intake Total 2910 / 2910 3143 / 3143 2157 / 2157 360 / 360 Output Total 2099 / 2099 550 / 550 Balance 810 / 810 2593 / 2593 215 / 2156 360 / 360 Weight 387 lb 6 oz 384 lb 2 oz 390 lb 1 oz 391 lb 3 oz
--- NOTE | 2020-06-07 08:52 | HMH.ACPN2 ---
<Lily Bender - Last Filed: 06/07/20 08:57> Internal Medicine - PN: Subj *Date: 06/07/20 *Time: 08:57 Interval history: Patient feels well this morning. He denies dizziness and shortness of breath as well as chest pain. Eating a full liquid diet without problems. He has been up to the bathroom several times during the night and stool remains black. He is voiding QS. Patient had repeat EGD yesterday Which revealed nonbleeding inflamed prepyloric ulcer with a couple of adjacent shallow linear ulcerations Exam Vital signs and Labs for Last 24 Hours: Temp Pulse Resp BP Pulse Ox 98.4 F 80 14 112/44 L 93 L 06/07/20 04:00 06/07/20 04:00 06/07/20 04:00 06/07/20 04:00 06/07/20 04:00 Laboratory Results - last 24 hr 06/06/20 11:55: POC Glucose 156 H 06/06/20 14:10: Hgb 9.4 L, Hct 29.2 L 06/06/20 16:41: POC Glucose 175 H 06/06/20 20:19: POC Glucose 167 H 06/06/20 22:00: Hgb 9.6 L, Hct 28.7 L 06/07/20 06:11: POC Glucose 141 H 06/07/20 06:32: WBC 7.2, RBC 3.47 L, Hgb 10.0 L, Hct 31.0 L, MCV 89.4, MCH 28.8, MCHC 32.2, RDW 18.8 H, Plt Count 237, MPV 8.8, Neut % (Auto) 78.5, Lymph % (Auto) 12.7, [place] % (Auto) 6.4, Eos % (Auto) 2.0, Baso % (Auto) 0.4, Neut # (Auto) 5.6, Lymph # (Auto) 0.9, [place] # (Auto) 0.5, Eos # (Auto) 0.1, Baso # (Auto) 0.0 I & O for Last 24 hours: Intake & Output 06/04/20 06/05/20 06/06/20 06/07/20 11:59 11:59 11:59 11:59 Intake Total 2910 / 2910 3143 / 3143 2157 / 2157 360 / 360 Output Total 2099 / 2099 550 / 550 Balance 810 / 810 2593 / 2593 2156 / 2156 360 / 360 Weight 387 lb 6 oz 384 lb 2 oz 390 lb 1 oz 391 lb 3 oz - Constitutional no acute distress Comments: Sitting on bedside and has completed his breakfast. - *Routine Respiratory Exam Present: CTA bilaterally (Anteriorly and posteriorly) - *Routine Cardiovascular Exam Present: RRR - *Routine Abdominal Exam Present: soft, normoactive bowel sounds, obese. Absent: tenderness - *Routine Extremities Exam Absent: edema (Of the right lower leg), calf tenderness (Of the right lower leg) - *Routine Skin Exam Present: dry, warm Comments: Color is good. - *Routine Neurological Exam Present: alert, oriented X3 Assessment and Plan (1) Rectal bleeding Status: Acute Category: Medical Code(s): K62.5 - Hemorrhage of anus and rectum (2) Anemia Status: Acute Qualifiers: Anemia type: iron deficiency Iron deficiency anemia type: chronic blood loss Qualified Code(s): D50.0 - Iron deficiency anemia secondary to blood loss (chronic) Category: Medical Code(s): D64.9 - Anemia, unspecified (3) History of peptic ulcer disease Status: Chronic Category: Medical Code(s): Z87.11 - Personal history of peptic ulcer disease (4) Dizziness Status: Acute Category: Medical Code(s): R42 - Dizziness and giddiness (5) History of DVT (deep vein thrombosis) Status: Chronic Category: Medical Code(s): Z86.718 - Personal history of other venous thrombosis and embolism (6) History of coronary artery stent placement Status: Chronic Category: Surgical Code(s): Z95.5 - Presence of coronary angioplasty implant and graft (7) History of left below knee amputation Status: Chronic Category: Medical Code(s): Z89.512 - Acquired absence of left leg below knee (8) History of mandibular surgery Status: Chronic Category: Surgical Code(s): Z98.890 - Other specified postprocedural states (9) History of pulmonary embolus (PE) Status: Chronic Category: Medical Code(s): Z86.711 - Personal history of pulmonary embolism (10) 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
--- NOTE | 2020-06-07 10:04 | PC.NURSE ---
1000 Discharge education provided to pt and his at this time, questions encouraged and answered. Pt is gathering belongings for discharge and will be ready to leave when [facility] medications as he is doing the meds to beds program.
--- NOTE | 2020-06-08 11:36 | HMH.DCSUM ---
General - General Admission date:: 06/03/20 <YaPrem - 06/28/20 14:53> 06/03/20 <Destiny Farah - 06/08/20 11:49> Discharge date: 06/07/20 <Destiny Farah - 06/08/20 11:49> HPI HPI: Mr. Worthy is a 59-year-old male patient with an extensive and complicated history who presented to the [facility] to see Dr. Pandya today. He states about a week ago he had some bloody stool. It then started to recur within the last 24 hours at which time he has had rectal bleeding as well as black stools. He states he always has a diarrhea since being on his chemotherapy. He has been seeing Dr. Ashton who was scheduling a EGD in a week for an evaluation of his peptic ulcer. East denies nausea, vomiting, fever, and admits to some abdominal cramping at times. He has been voiding without difficulty. He states he has been eating normally. He describes dizziness sometimes when standing but has not had any syncopal episodes. With evaluation in the office CBC revealed a hemoglobin of 10.5 and hematocrit of 32.8 with a white blood cell count of 9500. INR was found to be 4.3. He was admitted with some dramatic anemia for further evaluation and treatment. Surgeon has been consulted.Additional lab work after admission shows normal electrolytes with a BUN of 36 and creatinine 0.9. Liver function studies are normal. Covid IgG and IgM were both negative. 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 He is followed by oncology and is on chemotherapy with Votrient. He also attends physical therapy for his ongoing chronic back pain and is followed by Dr. Frank in pain management. <Destiny Farah - 06/08/20 11:49> Hospital Course Hospital Course: The patient was admitted and surgery was consulted. Serial H&H's were ordered. He was made n.p.o. for possible EGD if INR was satisfactory. In reviewing his home medications, he had continue taking etodolac, which she had at home. It was discussed with the patient that NSAIDs were contraindicated with his ulcer disease and his etodolac would need to be discontinued. Per his oncologist Dr. Soliman, PPIs were contraindicated in conjunction with his current chemotherapy. The only antiulcer medication Dr. Soliman had approved for the patient with Mylanta. The patient continued with dark stools and did have some nausea and abdominal pain. On 06/03/2020, the patient felt horrible. He has had numerous bloody bowel movements and felt short of breath and his arms were numb. He was very pale and could not move without getting dizzy. He was hypotensive and tachycardic. A stat EKG showed tachycardia but no acute ischemia and cardiac enzymes were negative. His labs came back and his hemoglobin was 5.8. He was set up for a stat blood transfusion and received [address] Tovar planned to proceed with an EGD as soon as the patient was stable after receiving blood. The patient's H&H improved to 9 and 28.1 and he was able to have an EGD. It showed a large bulbous clot overlying a prepyloric ulcer and sanguinous ooze around the base of the clot. The clot was evacuated and epinephrine was injected. There was no active bleeding after epinephrine injection. By 06/04/2020, he was feeling better and his color had improved. He was no longer short of breath and his weakness had improved as well. Dr. Pandya discussed the need with the patient to have a PPI to give the ulcer the best chance of healing. He remained reluctant due to instructions from his oncologist. The patient did contact Dr. Soliman via email and he responded back stating his agreement of starting a PPI and discontinuing his Votrient. The patient was therefore started on Protonix. He did require three more units of blood for total of 8 units during his ho
== END 2020-06-07 10:53 | disposition home or self-care (01) | DRG 378 ==
PROVIDERS: Physician Assistant; Surgery; Admitting Provider Family Medicine; PCP Family Medicine; Visit Provider Family Medicine
PROC: 0DJ08ZZ Inspection of Upper Intestinal Tract, Via Natural or Artificial Opening Endoscopic (ICD-10-PCS; CPT 43235; principal; 2020-06-03 11:30)
DX: K26.0 Acute duodenal ulcer with hemorrhage (principal); C79.51 Secondary malignant neoplasm of bone; D50.0 Iron deficiency anemia secondary to blood loss (chronic); I48.91 Unspecified atrial fibrillation; C73 Malignant neoplasm of thyroid gland; E11.9 Type 2 diabetes mellitus without complications; I10 Essential (primary) hypertension; E03.9 Hypothyroidism, unspecified; Z86.718 Personal history of other venous thrombosis and embolism; Z86.711 Personal history of pulmonary embolism; Z89.512 Acquired absence of left leg below knee; I25.10 Atherosclerotic heart disease of native coronary artery without angina pectoris; Z95.5 Presence of coronary angioplasty implant and graft; Z79.01 Long term (current) use of anticoagulants; Z79.4 Long term (current) use of insulin; Z88.0 Allergy status to penicillin; Z88.1 Allergy status to other antibiotic agents; Z88.8 Allergy status to other drugs, medicaments and biological substances
CPT/HCPCS: 43255; 43235; 36415; 80053; 82550; 82553; 82962; 84484; 85014; 85018; 85025; 85610; 86328; 86850; 93005; 94761; G0378; J2405; P9016

== ENCOUNTER 2020-06-10 11:23 | Emergency (ER) | payer MEDICARE, SELFPAY ==
[2020-06-10 11:23] VITALS: BP 157/60; PULSE 83; RESP 24; TEMP 37.2; O2SAT 99; BMI 48.1
--- NOTE | 2020-06-10 11:30 | ECG_ITS ---
APPROVED REPORT Exam: Resting ECG HR:80 bpm ECG Measurements Heart Rate 80 AXES CO 202 P 57 QRSd 86 QRS 62 QT 392 T 66 QTc 452 Conclusion Normal sinus rhythm Normal ECG Electronically signed by : Richie Coulter, 06/11/2020 08:04:23
[2020-06-10 11:31] VITALS: BMI 48.1
--- NOTE | 2020-06-10 11:33 | HMH.EDGENADL ---
ED Disposition Clinical Impression: Lightheadedness Disposition: Home, Self-Care Condition on Discharge: Good Additional Instructions: See Dr. Pandya in the office tomorrow as scheduled. Return for any worsening of symptoms. Referrals: Aly Nix MD [Primary Care Provider] - - Critical Care Critical Care Time: No Attestation: On , the high probability of a clinically significant, sudden or life threatening deterioration of the following system(s) required my full and direct attention, intervention and personal management. The time I documented below is in addition to time spent performing reported procedures but includes the following listed in this critical care notation. Medical Decision Making - Medical Records Medical records reviewed: Yes: I reviewed the patient's medical records. MR Comment: Reviewed admission 06/03/2020 through 06/07/2020 for GI bleed. Patient was transfused 7 units, surgery saw the patient and performed EGD X 2 which showed a prepyloric ulcer. - Mio Inquiry Pt receiving controlled substance: No Vital Signs: 06/10/20 11:23 06/10/20 12:15 06/10/20 12:34 Temperature 99 F Temperature Source Oral Pulse Rate [Radial] 83 73 72 Respiratory Rate 24 Blood Pressure [Right Arm] 157/60 H 163/77 H 152/76 H Blood Pressure Mean [Right Arm] 92 105 101 Blood Pressure Source [Right Arm] Automatic Cuff Automatic Cuff Blood Pressure Position [Right Arm] Sitting Sitting Sitting 02 Sat by Pulse Oximetry 99 95 98 Oxygen Delivery Method Room Air Room Air Room Air 06/10/20 13:08 Temperature Temperature Source Pulse Rate [Radial] 70 Respiratory Rate Blood Pressure [Right Arm] 145/76 H Blood Pressure Mean [Right Arm] 99 Blood Pressure Source [Right Arm] Automatic Cuff Blood Pressure Position [Right Arm] Sitting 02 Sat by Pulse Oximetry 96 Oxygen Delivery Method Room Air - Lab Data Lab Results 06/10/20 11:40: WBC 10.2, RBC 3.59 L, Hgb 10.4 L, Hct 35.8 L, MCV 99.8 H, MCH 28.9, MCHC 29.0 L, RDW 19.6 H, Plt Count 373 D, MPV 13.5 H, Neut % (Auto) 81.9 H, Lymph % (Auto) 9.1 L, [place] % (Auto) 5.6, Eos % (Auto) 2.4, Baso % (Auto) 1.0, Neut # (Auto) 8.4 H, Lymph # (Auto) 0.9, [place] # (Auto) 0.6, Eos # (Auto) 0.2, Baso # (Auto) 0.1 06/10/20 11:40: Sodium 136, Potassium 3.5, Chloride 103, Carbon Dioxide 26, Anion Gap 10.5, BUN 10, Creatinine 0.80, Estimated Creat Clear 90, Estimated GFR 98, Est GFR ( Amer) 119, Glucose 160 H, Calcium 7.7 L, Troponin I < 0.01 06/10/20 11:40: Troponin I < 0.01, TSH 0.04 L 06/10/20 11:40: Total Bilirubin 0.5, Direct Bilirubin 0.1, Conjugated Bilirubin 0.0, Indirect Bilirubin 0.4, Unconjugated Bilirubin 0.4, AST 33, ALT 29, Alkaline Phosphatase 112, Total Protein 5.6 L, Albumin 2.9 L 06/10/20 13:30: Stool Occult Blood Positive A Result diagrams: 06/10/20 11:40 06/10/20 11:40 Orders (Tests/Meds): ORDERS Category Date Time Status Troponin I Q3H Lab 06/10/20 17:45 Ordered - Radiology Data #1 Image(s): Chest Image Reviewed: Yes I have reviewed radiologist's interpretation PROCEDURE: XR CHEST PORTABLE CLINICAL HISTORY: weakness Generalized weakness COMPARISON: CT CT ANGIO CHEST from 07/30/2019 CR XR CHEST 2V from 07/30/2019 CR XR CHEST 2V from 09/25/2019 CR XR CHEST PORTABLE from 01/08/2020 FINDINGS: Mild cardiomegaly without failure. Right upper lobe mass with rib destruction once again noted. There is destruction of the posterior aspect of the right 6 and 7th ribs. The mass does not appear significantly changed considering the difference in technique. There is an old left 6th rib fracture. No acute bony abnormalities. IMPRESSION: Cardiomegaly with no significant change in the right upper lobe mass with rib destruction Dictated by: Paul Grace MD 06/10/2020 13:52 Paul Grace MD in [place] 06/10/2020 13:52 - ECG Data Tracing #1 EKG interpreted by Aly Nix MD: Rhythm: sinus Rate: 80 Ax
--- NOTE | 2020-06-10 11:39 | PC.NURSE ---
Radiology at bedside
[2020-06-10 12:00] LABS: Basophils # 0.1 K/mm3 (0-0.2); Eosinophils # 0.2 K/mm3 (0.0-0.4); Eosinophils % 2.4 % (0.1-12.0); Hematocrit 35.8 % (42.0-52.0); Hemoglobin 10.4 g/dL (14.1-18.0); Lymphocytes # 0.9 K/mm3 (0.7-4.5); Lymphocytes % 9.1 % (10-50); Mean Corpuscular Hemoglobin 28.9 pg (27.0-31.2); Mean Corpuscular Volume 99.8 fl (80-94); Mean Platelet Volume 13.5 fl (7.4-10.4); Monocytes # 0.6 K/mm3 (0.1-1.0); Monocytes % 5.6 % (1.7-9.3); Neutrophils # 8.4 K/mm3 (1.8-7.8); Neutrophils % 81.9 % (37.0-80.0); Platelet Count 373 K/mm3 (142-424); Red Blood Count 3.59 M/mm3 (4.60-6.20); Red Cell Distribution Width 19.6 % (11.5-17.5); White Blood Count 10.2 K/mm3 (4.8-10.8)
[2020-06-10 12:15] VITALS: BP 163/77; PULSE 73; O2SAT 95
[2020-06-10 12:16] LABS: Chloride 103 mmol/L (98-107); Potassium 3.5 mmoL/L (3.5-5.1); Sodium 136 mmol/L (136-145)
[2020-06-10 12:19] LABS: Blood Urea Nitrogen 10 mg/dl (9-20); Creatinine Clearance Estimated 90 mL/min (50-200); Estimated Glomerular Filt Rate 98 ml/min (>60); GFR (African American) 119 ML/MIN (>60)
[2020-06-10 12:20] LABS: Anion Gap 10.5 mEq/L (5-15); Calcium 7.7 mg/dl (8.4-10.2); Carbon Dioxide 26 mmol/L (22.0-30.0); Glucose 160 mg/dl (74-100)
[2020-06-10 12:30] LABS: Alanine Aminotransferase 29 U/L (12-78); Albumin Level 2.9 g/dl (3.5-5.0); Alkaline Phosphatase 112 U/L (38-126); Aspartate Amino Transferase 33 U/L (17-59); Bilirubin,Direct 0.1 mg/dl (0.0-0.4); Bilirubin,Indirect 0.4 mg/dL (0.0-0.9); Bilirubin,Total 0.5 mg/dl (0.2-1.3); Bilirubin,Unconjugated 0.4 mg/dL (0.0-1.1); Total Protein,Serum 5.6 g/dl (6.3-8.2)
[2020-06-10 12:34] VITALS: BP 152/76; PULSE 72; O2SAT 98
[2020-06-10 12:39] LABS: Troponin I < 0.01 ng/ml (0.00-0.034)
[2020-06-10 13:08] VITALS: BP 145/76; PULSE 70; O2SAT 96
--- NOTE | 2020-06-10 13:33 | PC.NURSE ---
rectal exam per dr voss with female nurse present
[2020-06-10 13:44] LABS: Occult Blood,Stool Positive (Negative)
[2020-06-10 13:54] LABS: Troponin I < 0.01 ng/ml (0.00-0.034)
[2020-06-10 14:12] LABS: Thyroid Stimulating Hormone 0.04 uIU/mL (0.465-4.68)
[2020-06-10 14:32] VITALS: BP 119/87; PULSE 87; RESP 18; TEMP 36.6; O2SAT 98
== END 2020-06-10 14:33 | disposition home or self-care (01) ==
PROVIDERS: Emergency Provider Family Medicine; PCP Emergency Medicine
DX: R42 Dizziness and giddiness (principal); K25.9 Gastric ulcer, unspecified as acute or chronic, without hemorrhage or perforation; C73 Malignant neoplasm of thyroid gland; C78.00 Secondary malignant neoplasm of unspecified lung; C79.51 Secondary malignant neoplasm of bone; I10 Essential (primary) hypertension; E11.9 Type 2 diabetes mellitus without complications; I25.10 Atherosclerotic heart disease of native coronary artery without angina pectoris; I25.2 Old myocardial infarction; Z95.5 Presence of coronary angioplasty implant and graft; I48.0 Paroxysmal atrial fibrillation; E03.9 Hypothyroidism, unspecified; Z86.718 Personal history of other venous thrombosis and embolism; Z89.512 Acquired absence of left leg below knee; E78.5 Hyperlipidemia, unspecified; F17.210 Nicotine dependence, cigarettes, uncomplicated; Z88.2 Allergy status to sulfonamides; Z88.8 Allergy status to other drugs, medicaments and biological substances; Z79.899 Other long term (current) drug therapy
CPT/HCPCS: 71045; 80048; 80076; 82272; 84443; 84484; 85025; 93005; 99283; G0328

== ENCOUNTER → 2020-06-15 13:56 | Outpatient (POV) | payer MEDICARE, SELFPAY | PROVIDERS: Visit Provider Dermatology | DX: Z00.00 Encounter for general adult medical examination without abnormal findings (principal) ==

== ENCOUNTER → 2020-06-17 12:34 | Outpatient (CLI) | payer MEDICARE, MEDICAID, SELFPAY ==
--- NOTE | 2020-06-17 13:01 | CA_ITS ---
APPROVED REPORT Right Lower Extremity Venous Study for DVT. Care Consultant: Amber Burris RVT Indications Lower Extremity Pain: Right Lower Extremity Edema: Right RLE PAIN,EDEMA,PT STOPPED COUMADIN 3 WKS AGO Risk Factors Prior Phlebitis/DVT Obesity Past History DVT : Vein Imaging CFV (R): compressive, spontaneous, phasic, augmentation FEM (R): compressive, spontaneous, phasic, augmentation POP (R): compressive, spontaneous, phasic, augmentation PTV (R): Compressible GSV (R): Compressible Peroneals (R):Compressible GAS (R): Compressible Findings Study suggests no evidence f DVT of the right lower extremity. Study suggests no evidence of SVT of the right lower extremity. Conclusion Study suggests no evidence f DVT of the right lower extremity. Study suggests no evidence of SVT of the right lower extremity. Critical Notification Physician Notified Date: 06/17/2020 Time: 13:30 Physician Name: Dr Pandya's office Electronically signed by : Paul Grace MD 06/17/2020 17:04:20
== END ==
PROVIDERS: PCP Family Medicine; Visit Provider Family Medicine
DX: M79.604 Pain in right leg (principal)
CPT/HCPCS: 93971

== ENCOUNTER → 2020-06-24 08:10 | Outpatient (POV) | payer MEDICARE, SELFPAY ==
--- NOTE | 2020-06-24 08:35 | HMH.PAINSOAP ---
[facility] Pain Management SOAP Note Subjective:: Patient is a 59-year-old white male who presents today for follow-up. Patient was recently hospitalized for severe GI bleed. He did get more than 8 units of blood while hospitalized. Patient is scheduled to see a warranty coordinator following our appointment today. Patient says he has stopped all of his anti-inflammatories. He says he feels this is why he is having worsening pain. He rates his pain an 8 out of 10 today. Patient says that he is also currently on Levaquin for prostate infection. He is having significant low back pain to bilateral paraspinous muscles. He has had trigger point injections in the past for which he says he gets some help 80% relief, however, it is temporary. He says the pain is relieved for about 2 to 3 weeks. He was prescribed oxycodone, however, he does admit he does not like the way it makes him feel. He also says that it does cause him to have constipation. He will take it for now because he is having severe pain. Review of Systems General: No recent weight changes, no fever, no sleep disturbances Respiratory: No cough, no shortness of air, no recurring pulmonary infections Cardiovascular/peripheral vascular: No chest pain, no palpitations, no edema, no shortness of breath Gastrointestinal: No new onset incontinence, normal bowel movements reported Genitourinary: No new onset incontinence Musculoskeletal: Bilateral low back pain Psychiatric: Normal mood/affect Neurological: [Denies weakness in extremities], [denies balance issues] Objective:: Physical exam General: Alert and oriented x3, no acute distress, pleasant and cooperative, [on room air] Lungs: Respirations even and unlabored, symmetrical chest expansion Eyes: PERRL Musculoskeletal: Flexion and extension of lumbar spine somewhat guarded secondary to pain, deep tendon reflexes normal, strength in upper and lower extremities [5/5], [abnormal gait noted] Neurological: Speech clear, weapons mechanic equal, no gross sensory deficit Assessment:: Degenerative disc disease lumbar spine with lumbar radiculopathy symptoms, lumbar spondylosis with facet arthropathy, postlaminectomy syndrome lumbar spine Plan:: We will give the patient prednisone 20 mg 1 tablet p.o. twice daily for 5 days. He would like to undergo lumbar paraspinous muscle trigger point injections, however, patient I did discuss doing oral steroids and then if he is cleared from gastroenterology, we will plan to perform trigger point injections to his lumbar paraspinous muscles. We will plan these injections mid July, provided the warranty coordinator has cleared the patient for the injections. Patient has been instructed to contact clinic if he has any concerns before his next appointment. The patient and I specifically discussed risk factors for COVID19. These risks include, but are not limited to age greater than 60, heart or lung disease, diabetes, immunosuppression, and travel. We also discussed NSAIDs may worsen COVID19 infection or symptoms. Patient should not use NSAIDs to treat COVID19 signs or symptoms. Patient was also informed that any type of corticosteroid of any form (oral or injection) will decrease the patient's immune system response and may increase the likelihood of COVID19 infection [address] symptoms[address]. Smiley has reviewed this note and agrees with this plan of care. This note was dictated using voice recognition software and make contain errors or omissions. [facility] History I have reviewed the patient's past medical history: Yes Medical History: Reports:: Asthma, Atherosclerotic Heart Disease, Atrial Fibrillation, Cancer, Coronary Artery Disease, Deep Vein Thrombosis, Diabetes Mellitus Type 2, Heart Murmur, Hyperlipidemia, Hypertension, Myocardial Infarction, Peripheral Artery Disease, Pulmonary Embolism, Ulcer Denies:: Diabetes Mellitus Type 1, Internal Pacemaker, MRSA, Seizures *Have you ever received a pneumonia vaccine?: Y
[2020-06-24 09:15] VITALS: BP 121/71; PULSE 73; RESP 18; TEMP 36.9; O2SAT 99; BMI 48.7
== END ==
PROVIDERS: PCP Family Medicine; Visit Provider Clinical Nurse Specialist Family Health
DX: M51.16 Intervertebral disc disorders with radiculopathy, lumbar region (principal); M47.816 Spondylosis without myelopathy or radiculopathy, lumbar region; M54.06 Panniculitis affecting regions of neck and back, lumbar region; M96.1 Postlaminectomy syndrome, not elsewhere classified
CPT/HCPCS: 99212

== ENCOUNTER 2020-07-15 11:48 | Outpatient (CLI) | payer MEDICARE, SELFPAY ==
[2020-07-15] VITALS (11 sets, daily range): BP systolic 113–139; BP diastolic 58–94; PULSE 78–83; RESP 16–18; TEMP 36.3–36.8; O2SAT 96–98; BMI 48.7
[2020-07-15 12:50] LABS: Hematocrit 30.3 % (42.0-52.0); Hemoglobin 9.2 g/dL (14.1-18.0)
--- NOTE | 2020-07-15 15:55 | PC.NURSE ---
1405 Transfusion of blood initiated at this time. VSS. IV patent. Lungs CTA. Resp unlabored. Reviewed s/s of transfusion reaction with patient, who verbalizes understanding of all instruction. 1435 Patient tolerating blood well with no problems noted. Resp easy/reg. Skin warm/dry to touch. IV patent. Denies complaints/no s/s of transfusion reaction noted. VSS. 1505 Patient continues to tolerate blood well. No s/s reaction noted. VSS. Patient denies any complaints. No problems or s/s transfusion reaction noted. 1605 Tolerating blood well. No changes or problems noted. Up to bathroom to void. VSS. IV patent.
--- NOTE | 2020-07-15 17:08 | PC.NURSE ---
1612 Blood transfusion complete. Patient tolerated well with no problems noted/ no s/s transfusion reaction noted. VSS. Resp easy/reg. Lungs CTA. 1712 One hour post H&H drawn at this time/transported to lab. One hour post transfusion vital signs stable. Patient denies complaints/no problems or s/s transfusion reaction noted.
[2020-07-15 17:33] LABS: Hematocrit 29.6 % (42.0-52.0); Hemoglobin 9.1 g/dL (14.1-18.0)
== END 2020-07-15 17:12 | disposition home or self-care (01) ==
LOC: INF 11:48
PROVIDERS: Visit Provider Family Medicine
DX: D50.0 Iron deficiency anemia secondary to blood loss (chronic) (principal); K92.2 Gastrointestinal hemorrhage, unspecified
CPT/HCPCS: 36430; 85014; 85018; 86850; P9016

== ENCOUNTER 2020-07-16 08:29 | Day surgery (SDC) | payer MEDICARE, SELFPAY ==
[2020-07-16 08:37] VITALS: BP 130/57; PULSE 81; RESP 20; TEMP 35.9; O2SAT 100; BMI 47.5
[2020-07-16 09:09] LABS: POC Glucose,Bedside 192 (70-110)
[2020-07-16 09:59] VITALS: BP 140/78; BP 140/79; PULSE 85; RESP 18; O2SAT 98
--- NOTE | 2020-07-16 10:05 | HMH.PMPROC ---
- Procedure Date: 07/16/20 Time: 10:05 Anesthesiologist:: Cody Smiley MD Complications:: None Pre-procedure Diagnosis:: Low back pain with myofascial pain lumbar paraspinous muscles Post-procedure Diagnosis:: Same Indications for Procedure:: Patient pleasant 59-year-old white male who we are been treating for low back pain with f\myofascial pain lumbar paraspinous muscles. He has been getting trigger point injections which helped him for several weeks. He has been hospitalized with a GI bleed. He presents with trigger points bilateral lumbar paraspinous muscles. We will do trigger point injections today to help him with his low back pain. Procedure Details:: Trigger point injections x8 to the lumbar paraspinous muscles Informed consent was obtained the risk and benefits of the procedure were explained to the patient. Patient was taken to the procedure room. The back was prepped using ChloraPrep. Trigger points were palpated marked. Each of these trigger points were injected with bupivacaine 0.25% 3 mils and Depo-Medrol 10 mg. There are total of 8 trigger points injected 4 on each side with 80 mg Depo-Medrol. Patient tolerated the procedure well with no complications. Plan and Disposition:: We will follow-up with him in 2 weeks. Will reevaluate symptoms at that time.
[2020-07-16 10:10] VITALS: BP 132/49; PULSE 81; RESP 20; O2SAT 100
[2020-07-16 11:04] LABS: Hematocrit 29.2 % (42.0-52.0)
== END 2020-07-16 10:10 | disposition home or self-care (01) ==
PROVIDERS: Family Medicine; PCP Family Medicine; Visit Provider Anesthesiology
DX: M54.9 Dorsalgia, unspecified (principal); M79.18 Myalgia, other site; I10 Essential (primary) hypertension; E78.5 Hyperlipidemia, unspecified; E11.9 Type 2 diabetes mellitus without complications; I25.10 Atherosclerotic heart disease of native coronary artery without angina pectoris; I73.9 Peripheral vascular disease, unspecified; J44.9 Chronic obstructive pulmonary disease, unspecified; K21.9 Gastro-esophageal reflux disease without esophagitis; Z95.828 Presence of other vascular implants and grafts; Z86.711 Personal history of pulmonary embolism; E07.9 Disorder of thyroid, unspecified
CPT/HCPCS: 20552; 36415; 82962; 85014; 85018; J1030

== ENCOUNTER 2020-07-22 08:30 | Outpatient (RCR) | payer MEDICARE, SELFPAY ==
--- NOTE | 2020-05-05 10:36 | HMH.PTOPEV ---
PT Outpatient Evaluation Rehab PT Outpatient Evaluation Start: 05/05/20 08:05 Freq: Status: Active Protocol: Document 05/05/20 10:23 AAYUSH (Rec: 05/05/20 10:36 PHOCARLIE [id number]) Electronically Signed By Brooks Muñiz, PT 05/05/20 10:23 Outpatient Therapy Subjective History Subjective History Pt is 59 yowm who presents with c/o chronic LBP, worse on the R side, x ~ 5 yrs. He reports he was diagnosed with thyroid cancer with mult bone mets which resulted in tumor excision from his lumbar spine (L3/4, L4/5?) with PLIF from L3-S1. He recently underwent RFA on 04/30/2020 to L4/5 and L5/S1 and has undergone trigger pt injections as well. He reports all of these procedures help for short term , but pain returns. He also has hx of R side mandible replacement due to bone mets and a prior L BKA. He remains on oral chemo medication at this time. He has PMH of Asthma, CAD, a-fib, DVT, DM-I, PE, HTN< GA, PAD. Chief Complaint Pain,Stiff Symptom Type Ache,Throb,Sharp Symptoms Relieved By Rest/Positioning Symptoms Aggravated By Standing,Physical Activity, Walking Prior Functional Limitations Standing,Walking Current Functional Limitations Standing,Walking Symptom Description Constant but Variable Level of pain today (0-10) 2 Pain scale - at its worst (0-10) 9 Lumbopelvic Eval Palapation tenderness right lumbar spinal tenderness Yes paraspinal tenderness Yes Range of Motion Lumbar Spine Active Flexion Range of 0-50 Motion (degrees) Lumbar Spine Active Extension Range of 0-5 Motion (degrees) Left Lumbar Spine Lateral Flexion Active 0-15 Range of Motion (degrees) Right Lumbar Spine Lateral Flexion 0-15 Active Range of Motion (degrees) Lumbar Spine ROM Limitations Pain Manual Muscle Test Bilateral Knee Extension Strength Grade 5 Normal Knee Flexion Strength Grade 5 Normal Hip Flexion Strength Grade 5 Normal Hip Abduction Strength Grade 5 Normal Hip Adduction Strength Grade 5 Normal Special Tests Sciatic Nerve Tension Test Negative Left,Negative Right Unilateral Straight Leg Raise (Lasegue)
--- NOTE | 2020-06-22 09:49 | HMH.RHREAS ---
Rehab Reassessment Rehab OP Re-assessment Start: 06/22/20 09:33 Freq: Status: Active Protocol: Document 06/22/20 09:36 [email or web address] (Rec: 06/22/20 09:49 AAYUSH [id number]) Electronically Signed By Brooks Muñiz, PT 06/22/20 09:36 Rehab Re-assessment Subjective Subjective Pt reports he had to be hospitalized due to severe anemia from a bleeding ulcer and required multiple blood transfusions. He therefore, missed several weeks of therapy and has had increased back pain during that time. Objective Objective Notes Lumbar AROM (in deg): Flex= 0- 55 deg, EXT= 0-10, R SB= 0-15, L SB= 0-15. Assessment Progress Assessment Progressing as Expected Assessment Notes Pt has improved mobility overall, pain remains increased as does lumbar paraspinal tightness. However ,patients recent co-morbid medical conditions have limited some of his improvement. Patient goals met ST,2,3,4,5 Goals Not Met LT,2,3,4,5,6 Revised Goals none Plan Plan Continue per initial POC. Frequency of Therapy 2 x/wk Duration of therapy 8 wks. Time and Billing Re-Eval Time 15 Re-Eval Billing Units 1 PHYSICIAN CERTIFICATION: I certify the specified therapy services for Can Worthy are required, authorized, and reviewed every 30 days.
== END 2020-07-22 08:35 | disposition home or self-care (01) ==
LOC: PT 08:30
PROVIDERS: PCP Family Medicine; Visit Provider Anesthesiology
DX: M54.5 Low back pain (principal)
CPT/HCPCS: 97010; 97014; 97110; 97140; 97163; 97164; G0283

== ENCOUNTER → 2020-08-06 08:26 | Day surgery (SDC) | payer MEDICARE, SELFPAY ==
[2020-08-06 08:36] VITALS: BP 145/64; PULSE 91; RESP 18; TEMP 36.4; O2SAT 98; BMI 47.5
--- NOTE | 2020-08-06 09:34 | P.PCN_ITS ---
- Procedure Date: 08/06/20 Time: 09:41 Anesthesiologist:: Cody Smiley MD Complications:: None Pre-procedure Diagnosis:: Low back pain with myofascial pain lumbar paraspinous muscles Post-procedure Diagnosis:: Same Indications for Procedure:: Patient is a pleasant 59-year-old white male who we are treating for low back pain with myofascial pain of the lumbar paraspinous muscles. He has been getting trigger point injections to the lumbar paraspinous muscles which helped him tremendously. He was 80 to 90% better up until recently. His pain is just now starting to return. We will do repeat bilateral trigger point injections to the lumbar paraspinous muscles today. Procedure Details:: Trigger point injections x8 to lumbar paraspinous muscles. Informed consent was obtained and the risk and benefits of the procedure was explained to the patient. The patient was taken to the procedure room. The back was prepped using ChloraPrep. Trigger points were palpated and marked. Each of these trigger points were injected with bupivacaine 0.25% 3 mL and Depo- Medrol 10 mg. A total of 8 trigger points were injected, 4 on each side with 80 mg Depo-Medrol. Patient tolerated procedure well with no complications. Plan and Disposition:: We will follow-up with this patient in 1 month. Will reevaluate symptoms at that time.
[2020-08-06 09:37] VITALS: BP 142/74; PULSE 74
[2020-08-06 09:38] VITALS: BP 142/75; PULSE 85; RESP 18; O2SAT 99
[2020-08-06 09:47] VITALS: BP 137/47; PULSE 65; RESP 20; O2SAT 98
[2020-08-16 11:43] LABS: POC Glucose,Bedside 131 (70-110)
== END | disposition home or self-care (01) ==
PROVIDERS: PCP Family Medicine; Visit Provider Anesthesiology
DX: M79.18 Myalgia, other site (principal); M54.5 Low back pain; I25.10 Atherosclerotic heart disease of native coronary artery without angina pectoris; I10 Essential (primary) hypertension; J44.9 Chronic obstructive pulmonary disease, unspecified; K21.9 Gastro-esophageal reflux disease without esophagitis; E11.9 Type 2 diabetes mellitus without complications; Z86.718 Personal history of other venous thrombosis and embolism; Z86.711 Personal history of pulmonary embolism; Z88.1 Allergy status to other antibiotic agents; Z88.8 Allergy status to other drugs, medicaments and biological substances; Z79.899 Other long term (current) drug therapy
CPT/HCPCS: 20552; 82962; J1030

== ENCOUNTER 2020-08-27 08:27 | Day surgery (SDC) | payer MEDICARE, SELFPAY ==
[2020-08-27 08:49] VITALS: BP 139/65; PULSE 97; RESP 20; TEMP 36.1; O2SAT 97; BMI 48.7
[2020-08-27 09:13] VITALS: BP 148/89; PULSE 84; RESP 18; O2SAT 98
[2020-08-27 09:15] VITALS: BP 145/85; PULSE 78; RESP 18; O2SAT 98
[2020-08-27 09:21] VITALS: BP 147/73; PULSE 73; RESP 18; O2SAT 97
--- NOTE | 2020-08-27 09:21 | HMH.PMPROC ---
- Procedure Date: 08/27/20 Time: 09:22 Anesthesiologist:: Cody Smiley MD Complications:: None Pre-procedure Diagnosis:: Low back pain with myofascial pain lumbar paraspinous muscles. Degenerative disc disease of lumbar spine with lumbar radiculopathy symptoms and postlaminectomy syndrome of lumbar spine Post-procedure Diagnosis:: Same Indications for Procedure:: This patient is a pleasant 59-year-old white male who been treating for low back pain with myofascial pain lumbar paraspinous muscles. He also has degenerative disc disease of lumbar spine with lumbar radiculopathy symptoms and postlaminectomy syndrome lumbar spine. He does well with bilateral lumbar paraspinous trigger point injections. He was 89% better after his last round of trigger point injections. His pain is starting to return. We will do repeat bilateral lumbar paraspinous muscle trigger point injections today. We will also give him a TENS unit to help him with his pain symptoms to spread out his injections to decrease the amount of overall steroid that the patient is getting. Procedure Details:: Trigger point injections x8 to lumbar paraspinous muscles Informed consent was obtained the risk and benefits of the procedure were explained to the patient. Patient was taken to the procedure room. The back was prepped using ChloraPrep. Trigger points were palpated and marked. Each of these trigger points were injected with bupivacaine 0.25% 3 mL and Depo-Medrol 10 mg. A total of 8 trigger points were injected 4 on each side with 80 mg Depo-Medrol. Patient tolerated procedure well with no complications. Plan and Disposition:: We will follow-up with this patient in 2 weeks. He is having some increasing pain over his left trochanteric bursa. We will evaluate him and plan on a left trochanteric bursa injection in 1 month. We will spread out his trigger point injections for 2 months at least. We will also give him a TENS unit to help with his pain symptoms.
== END 2020-08-27 09:22 | disposition home or self-care (01) ==
LOC: SC.PAINP 08:28
PROVIDERS: PCP Family Medicine; Visit Provider Anesthesiology
DX: M96.1 Postlaminectomy syndrome, not elsewhere classified (principal); M79.18 Myalgia, other site; M51.16 Intervertebral disc disorders with radiculopathy, lumbar region; I25.2 Old myocardial infarction; I25.10 Atherosclerotic heart disease of native coronary artery without angina pectoris; I10 Essential (primary) hypertension; Z87.19 Personal history of other diseases of the digestive system; Z86.718 Personal history of other venous thrombosis and embolism; Z86.79 Personal history of other diseases of the circulatory system; Z95.818 Presence of other cardiac implants and grafts; Z88.1 Allergy status to other antibiotic agents; Z88.8 Allergy status to other drugs, medicaments and biological substances
CPT/HCPCS: 20552; J1030

== ENCOUNTER 2020-09-24 08:36 | Day surgery (SDC) | payer MEDICARE, OTHER, SELFPAY ==
[2020-09-24 09:29] VITALS: BP 141/57; PULSE 74; RESP 18; TEMP 36.6; O2SAT 98; BMI 36.2
[2020-09-24 09:44] VITALS: BP 132/78; PULSE 85; RESP 18
[2020-09-24 09:46] LABS: POC Glucose,Bedside 144 (70-110)
[2020-09-24 09:53] VITALS: BP 144/78; PULSE 76; RESP 18; O2SAT 98
[2020-09-24 10:05] VITALS: BP 148/59; PULSE 71; RESP 20; O2SAT 98
--- NOTE | 2020-09-24 10:22 | P.PCN_ITS ---
- Procedure Date: 09/24/20 Time: 10:22 Anesthesiologist:: Cody Smiley MD Complications:: None Pre-procedure Diagnosis:: Trochanteric bursitis Post-procedure Diagnosis:: Same Indications for Procedure:: Patient is a pleasant 59-year-old white male who we have been treating for low back pain with lumbar radiculopathy symptoms and postlaminectomy syndrome lumbar spine. He has been getting trigger point injections which have helped him tremendously. He presents today with increasing pain over the left trochanteric bursa. We will do a left trochanteric bursa injection under fluoroscopy today to help him with his residual pain symptoms. Procedure Details:: Left trochanteric bursa injection under fluoroscopy Informed consent was obtained and the risk and benefits of the procedure was explained to the patient. The patient was taken to procedure room and placed prone on the procedure table. The left hip was prepped using ChloraPrep. The skin and subcutaneous tissues were anesthetized using lidocaine. I placed a 22- gauge spinal needle under fluoroscopic guidance and advanced until it contacted the left greater trochanter. Needle placement was confirmed with dye. After this we injected 5 mL bupivacaine 0.25% and Depo-Medrol 40 mg. Patient tolerated the procedure well with no complications. Plan and Disposition:: We will follow-up with him in 2 weeks. Will reevaluate symptoms at that time. He is wanting to pursue RF ablation to the facet joints. We will need to see if he can come off of his blood thinners in anticipation of RF ablation to his facet joints.
== END 2020-09-24 10:05 | disposition home or self-care (01) ==
LOC: SC.PAINP 08:40
PROVIDERS: PCP Family Medicine; Visit Provider Anesthesiology
DX: M70.62 Trochanteric bursitis, left hip (principal); I10 Essential (primary) hypertension; E11.9 Type 2 diabetes mellitus without complications; Z88.1 Allergy status to other antibiotic agents; E78.5 Hyperlipidemia, unspecified; I73.9 Peripheral vascular disease, unspecified; Z95.5 Presence of coronary angioplasty implant and graft; Z79.01 Long term (current) use of anticoagulants; C73 Malignant neoplasm of thyroid gland; Z88.8 Allergy status to other drugs, medicaments and biological substances; Z79.4 Long term (current) use of insulin; Z79.899 Other long term (current) drug therapy
CPT/HCPCS: 20610; 77002; 82962; J1040; Q9966

== ENCOUNTER 2020-10-07 23:52 | Observation (INO) | payer MEDICARE, OTHER, SELFPAY ==
[2020-10-07 23:52] VITALS: BP 129/62; PULSE 75; RESP 18; TEMP 36.4; O2SAT 97; BMI 48.7
[2020-10-08] VITALS (12 sets, daily range): BP systolic 117–160; BP diastolic 62–78; PULSE 70–82; RESP 16–18; TEMP 36.7–36.9; O2SAT 93–96; BMI 49.9; BMI 49.6
--- NOTE | 2020-10-08 00:04 | XR_ITS ---
PROCEDURE: XR LUMBAR SPINE 2-3V CLINICAL INDICATION: pain COMPARISON: CT CT LUMBAR SPINE WO CON from 10/08/2020 FINDINGS: There is normal alignment. Inter pedicular screws are present at L4 and L5 with connecting rods. There is degenerative disc disease at T12-L1 and L1-L2. Other findings:No obvious fracture or dislocation. Lytic lesions are noted involving the iliac crest on both sides on the subsequent CT scan but below limits of resolution the limited radiographs. IMPRESSION: Normal alignment with postsurgical change. No acute fracture Dictated by: Paul Grace MD 10/08/2020 05:27 Paul Grace MD in [facility] 10/08/2020 05:27
--- NOTE | 2020-10-08 00:04 | CT_ITS ---
PROCEDURE: CT LUMBAR SPINE WO CON CLINICAL HISTORY: pain Metastatic disease, lumbar pain COMPARISON: CT LSWWO CT LUMBAR SPINE W/WO DYE from 11/06/[address] ABDOMEN PELVIS WO CON from 01/08/2020 TECHNIQUE: Axial images obtained with sagittal and coronal reformats. All CT scans at the facility use one or more dose reduction, viz: automated exposure control, ma/kV adjustment per patient size (including targeted exams where dose is matched to indication, i.e. head), or iterative reconstruction technique. FINDINGS: There is normal alignment. An old right 10th and 11th rib fracture. There postsurgical changes at L4-5 with inter pedicular screws, connecting rods, and disc spacer device with considerable artifact. Posterior laminectomy performed at L4. A well-circumscribed lucent lesion is present involving the posterior superior iliac spine at 15 mm. This has developed since an older study of 11/06/2014 consistent with a metastatic focus. There are sclerotic margins. This is unchanged from a prior abdomen CT of 01/08/2020. A lytic lesion involves the right ilium inferiorly and posteriorly at the SI joint area measuring 3 cm and has increased in size previously measuring 2 cm on 01/08/2020. Lytic focus involves the left ilium anteriorly at 11 mm and has developed since the previous exam. A large lytic lesion involves the left super acetabular area described in the CT hip report with incomplete medial margins consistent with either pathologic fracture or tumor invasion. There is mild lumbar scoliosis convex left. There is degenerative disc disease at L3-L4 with vacuum disc and facet and ligamentum hypertrophy with bilateral lateral recess and foraminal narrowing.. Mild bilateral foraminal narrowing at L4-5 IMPRESSION: 1. Postoperative changes at L4-5. 2. Lumbar spondylosis with degenerative disc disease at L3-L4 with bilateral lateral recess and facet hypertrophic change. 3. Multiple lytic foci as described above consistent with metastatic disease which has progressed Dictated by: Paul Grace MD 10/08/2020 08:58 Paul Grace MD in [facility] 10/08/2020 08:58
--- NOTE | 2020-10-08 00:04 | CT_ITS ---
PROCEDURE: CT HIP LT WO CON CLINICAL HISTORY: pain Metastatic disease, acute left hip pain COMPARISON: CT CT ABDOMEN PELVIS WO CON from 01/08/2020 TECHNIQUE: Axial images obtained with sagittal and coronal reformats. All CT scans at the facility use one or more dose reduction, viz: automated exposure control, ma/kV adjustment per patient size (including targeted exams where dose is matched to indication, i.e. head), or iterative reconstruction technique. FINDINGS: A lytic lesion involves the left super acetabular area measuring 0.4 x 3.5 x 4.8 cm. This has slightly increased in size compared to 01/08/2020 the previously measuring 4.6 x 4.8 2.9 cm. The medial aspect of this lesion appears discontinuous suggesting nondisplaced fracture or tumor extension. No displacement. No acute fracture of the femur. May be lytic lesion involves the posterior superior aspect of the left ilium at 14 mm not significantly changed. The peripheral margins are sclerotic. There are mild degenerative changes at the left SI joint and hip. There is a small left inguinal hernia containing fat. IMPRESSION: Lytic lesion of the left super acetabular area with discontinuous margins anteriorly and medially consistent with pathologic nondisplaced fracture versus tumor extension. The lesion has slightly increased in size since the exam of 01/08/2020 consistent with progression of metastatic disease. Stable lytic lesion of the left posterior superior iliac spine which could represent a treated metastatic focus or a benign bone lesion. Dictated by: Paul Grace MD 10/08/2020 07:11 Paul Grace MD in [facility] 10/08/2020 07:11
--- NOTE | 2020-10-08 00:04 | XR_ITS ---
PROCEDURE: XR HIP LT 2-3V W/PELVIS CLINICAL INDICATION: pain Left hip pain COMPARISON: CT CT HIP LT WO CON from 10/08/2020 FINDINGS: There is a lytic lesion in the left supra-acetabular region measuring 6 by 3.5 cm suspicious for neoplasm. CT suggested for further evaluation. Osteoarthritic changes are present involving the hips. There is postsurgical change of the lumbar spine. No obvious acute fracture. IMPRESSION: No acute fracture. Lytic lesion in the left supra-acetabular region. Dictated by: Paul Grace MD 10/08/2020 05:23 Paul Grace MD in [facility] 10/08/2020 05:23
--- NOTE | 2020-10-08 00:56 | HMH.EDGENADL ---
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, Diabetes 1.5, managed as type 1, History of left below knee amputation Pathological fracture of acetabulum Qualifiers: Encounter type: initial encounter Laterality: left Qualified Code(s): M84.454A - Pathological fracture, pelvis, initial encounter for fracture Obesity Qualifiers: Obesity type: due to excess calories Obesity classification: adult class 3 (BMI >= 40) Serious obesity comorbidity presence: with serious comorbidity Body mass index: BMI 45.0-49.9 Qualified Code(s): E66.01 - Morbid (severe) obesity due to excess calories; Z68.42 - Body mass index [BMI] 45.0-49.9, adult Disposition: Admitted as Observation Condition on Discharge: Fair Referrals: Prem Pandya MD [Primary Care Provider] - - Critical Care Critical Care Time: No Attestation: On 10/07/20, the high probability of a clinically significant, sudden or life threatening deterioration of the following system(s) required my full and direct attention, intervention and personal management. The time I documented below is in addition to time spent performing reported procedures but includes the following listed in this critical care notation. Medical Decision Making - Medical Records Medical records reviewed: Yes: I reviewed the patient's medical records. - Mio Inquiry Pt receiving controlled substance: No Vital Signs: 10/07/20 23:52 10/08/20 01:03 10/08/20 01:31 Temperature 97.5 F L Temperature Source Oral Pulse Rate 82 77 Pulse Rate [Left Radial] 75 Respiratory Rate 18 16 16 Blood Pressure 117/62 129/70 Blood Pressure [Right Arm] 129/62 Blood Pressure Mean 80 Blood Pressure Mean [Right Arm] 84 Blood Pressure Source [Right Arm] Automatic Cuff Blood Pressure Position [Right Arm] Sitting 02 Sat by Pulse Oximetry 97 94 L 95 Oxygen Delivery Method Room Air Room Air Room Air - Lab Data Lab results reviewed: Yes: I reviewed the patient's lab results. Lab Results 10/08/20 00:00: WBC 9.4, RBC 4.12 L, Hgb 10.6 L, Hct 34.8 L, MCV 84.5, MCH 25.7 L, MCHC 30.4 L, RDW 20.5 H, Plt Count 236, MPV 8.2, Neut % (Auto) 75.4, Lymph % (Auto) 12.9, [place] % (Auto) 7.8, Eos % (Auto) 2.7, Baso % (Auto) 1.2, Neut # (Auto) 7.1, Lymph # (Auto) 1.2, [place] # (Auto) 0.7, Eos # (Auto) 0.3, Baso # (Auto) 0.1, ESR 104 H 10/08/20 00:00: Sodium 137, Potassium 4.6, Chloride 103, Carbon Dioxide 27, Anion Gap 11.6, BUN 31 H, Creatinine 0.80, Estimated Creat Clear 93, Estimated GFR 98, Est GFR ( Amer) 119, Glucose 206 H, Calcium 9.2, C-Reactive Protein 13.2 H 10/08/20 00:00: Total Bilirubin 0.4, Direct Bilirubin 0.1, Conjugated Bilirubin 0.0, Indirect Bilirubin 0.3, Unconjugated Bilirubin 0.2, AST 29, ALT 24, Alkaline Phosphatase 99, Total Protein 6.8, Albumin 3.7 Result diagrams: 10/08/20 00:00 10/08/20 00:00 Orders (Tests/Meds): ED MEDICATIONS Generic Name Dose Route Start Last Admin Trade Name Freq PRN Reason Stop Dose Admin Sodium Chloride 1,000 mls @ 999 mls/hr 10/08/20 02:15 10/08/20 02:03 Sod Chlor 0.9% 1000ml Bag IV 10/08/20 03:15 999 mls/hr .Q1H1M ILEANA Administration Discontinued Medications Generic Name Dose Route Start Last Admin Trade Name Freq PRN Reason Stop Dose Admin Ketorolac Tromethamine 30 mg 10/08/20 02:00 10/08/20 02:01 Ketorolac 30mg/Ml Vial IV 10/08/20 02:01 30 mg ONCE ONE Administration Methylprednisolone Sodium Succinate 125 mg 10/08/20 01:03 10/08/20 01:05 Methylprednisolone Sod Succ 125mg Vial IV 10/08/20 01:04 125 mg ONCE ONE Administration Morphine Sulfate 4 mg 10/08/20 01:03 10/08/20 01:04 Morphine 4mg/Ml Syringe IV 10/08/20 01:04 4 mg ONCE ONE Administration Ondansetron HCl 4 mg 10/08/20 01:03 10/08/20 01:04 Ondansetron 4mg/2ml Vial IV 10/08/20 01:04 4 mg ONCE ONE Administration ORDERS Category Date Time Status CT hip LT w
[2020-10-08 01:08] LABS: Basophils # 0.1 K/mm3 (0-0.2); Basophils % 1.2 % (0.1-2.0); Eosinophils # 0.3 K/mm3 (0.0-0.4); Eosinophils % 2.7 % (0.1-12.0); Hematocrit 34.8 % (42.0-52.0); Hemoglobin 10.6 g/dL (14.1-18.0); Lymphocytes # 1.2 K/mm3 (0.7-4.5); Lymphocytes % 12.9 % (10-50); Mean Corpuscular HGB Conc 30.4 g/dL (31.8-35.4); Mean Corpuscular Hemoglobin 25.7 pg (27.0-31.2); Mean Corpuscular Volume 84.5 fl (80-94); Mean Platelet Volume 8.2 fl (7.4-10.4); Monocytes # 0.7 K/mm3 (0.1-1.0); Monocytes % 7.8 % (1.7-9.3); Neutrophils # 7.1 K/mm3 (1.8-7.8); Neutrophils % 75.4 % (37.0-80.0); Platelet Count 236 K/mm3 (142-424); Red Blood Count 4.12 M/mm3 (4.60-6.20); Red Cell Distribution Width 20.5 % (11.5-17.5); White Blood Count 9.4 K/mm3 (4.8-10.8)
[2020-10-08 01:13] LABS: Anion Gap 11.6 mEq/L (5-15); Blood Urea Nitrogen 31 mg/dl (9-20); Calcium 9.2 mg/dl (8.4-10.2); Carbon Dioxide 27 mmol/L (22.0-30.0); Chloride 103 mmol/L (98-107); Creatinine Clearance Estimated 93 mL/min (50-200); Estimated Glomerular Filt Rate 98 ml/min (>60); GFR (African American) 119 ML/MIN (>60); Glucose 206 mg/dl (74-100); Potassium 4.6 mmoL/L (3.5-5.1); Sodium 137 mmol/L (136-145)
[2020-10-08 01:15] LABS: Alanine Aminotransferase 24 U/L (12-78); Albumin Level 3.7 g/dl (3.5-5.0); Alkaline Phosphatase 99 U/L (38-126); Aspartate Amino Transferase 29 U/L (17-59); Bilirubin,Direct 0.1 mg/dl (0.0-0.4); Bilirubin,Indirect 0.3 mg/dL (0.0-0.9); Bilirubin,Total 0.4 mg/dl (0.2-1.3); Bilirubin,Unconjugated 0.2 mg/dL (0.0-1.1); Total Protein,Serum 6.8 g/dl (6.3-8.2)
[2020-10-08 01:17] LABS: C-Reactive Protein 13.2 mg/L (0-4)
[2020-10-08 01:42] LABS: Erythrocyte Sedimentation Rate 104 mm/hr (0-20)
--- NOTE | 2020-10-08 02:01 | PC.NURSE ---
speaking with Aleyda at this time
[2020-10-08 02:06] LABS: Adenovirus,PCR Not Detected (NotDetected); Bordetella Pertussis Not Detected (NotDetected); Chlamydophila Pneumoniae, PCR Not Detected (NotDetected); Coronavirus 19, PCR Not Detected (NotDetected); Coronavirus 229E Not Detected (NotDetected); Coronavirus NL63 Not Detected (NotDetected); Coronavirus OC43 Not Detected (NotDetected); Coronovirus HKU1,PCR Not Detected (NotDetected); Human Metapneumovirus Not Detected (NotDetected); Influenza A, PCR Not Detected (NotDetected); Influenza AH1, 2009 Not Detected (NotDetected); Influenza AH1, PCR Not Detected (NotDetected); Influenza AH3,PCR Not Detected (NotDetected); Influenza B, PCR Not Detected (NotDetected); Mycoplasma Pneumoniae, PCR Not Detected (NotDetected); Parainfluenza 1, PCR Not Detected (NotDetected); Parainfluenza 2, PCR Not Detected (NotDetected); Parainfluenza 3, PCR Not Detected (NotDetected); Parainfluenza 4, PCR Not Detected (NotDetected); Respiratory Syncytial Virus Not Detected (NotDetected); Rhinovirus/Enterovirus Not Detected (NotDetected)
--- NOTE | 2020-10-08 02:10 | PC.NURSE ---
Notified camp housekeeper on need for bed assignment.
--- NOTE | 2020-10-08 02:13 | PC.NURSE ---
Password set up with . Betzaida
--- NOTE | 2020-10-08 03:55 | PC.NURSE ---
Gave report to Vicenta Jackson RN
--- NOTE | 2020-10-08 04:09 | PC.NURSE ---
staff in ER to transfer to 2nd floor. Pt's prosthetic leg, home meds, and duffel bag were sent with pt.
--- NOTE | 2020-10-08 04:14 | PC.NURSE ---
patient up to floor via stretcher.
--- NOTE | 2020-10-08 05:32 | PC.WOUNDNOTE ---
Wound Location: R foot Length: 1 in Width: 1 in Depth: Undermining Y/N: Tunneling cm: Granulation %: Slough/necrotic tissue %: Inflammation/swelling Y/N: Pain and/or tenderness Y/N: Y Exudate: Purulent Color: [place] Red Consistency: Thick Amount: Scant Odor Y/N:
[2020-10-08 06:02] LABS: Basophils # 0.1 K/mm3 (0-0.2); Basophils % 0.4 % (0.1-2.0); Eosinophils % 0.3 % (0.1-12.0); Hematocrit 37.2 % (42.0-52.0); Hemoglobin 11.1 g/dL (14.1-18.0); Lymphocytes # 0.5 K/mm3 (0.7-4.5); Lymphocytes % 3.9 % (10-50); Mean Corpuscular HGB Conc 29.9 g/dL (31.8-35.4); Mean Corpuscular Hemoglobin 25.4 pg (27.0-31.2); Mean Corpuscular Volume 84.9 fl (80-94); Monocytes # 0.2 K/mm3 (0.1-1.0); Monocytes % 1.4 % (1.7-9.3); Neutrophils # 10.9 K/mm3 (1.8-7.8); Platelet Count 229 K/mm3 (142-424); Red Blood Count 4.37 M/mm3 (4.60-6.20); Red Cell Distribution Width 20.7 % (11.5-17.5); White Blood Count 11.6 K/mm3 (4.8-10.8)
[2020-10-08 06:08] LABS: MANUAL DIFFERENTIAL MANUAL DIFFERENTIAL (MANUAL DIFF)
[2020-10-08 06:37] LABS: Chloride 105 mmol/L (98-107); Potassium 5.8 mmoL/L (3.5-5.1); Sodium 136 mmol/L (136-145)
[2020-10-08 06:40] LABS: Anion Gap 11.8 mEq/L (5-15); Blood Urea Nitrogen 33 mg/dl (9-20); Carbon Dioxide 25 mmol/L (22.0-30.0); Creatinine Clearance Estimated 93 mL/min (50-200); Estimated Glomerular Filt Rate 98 ml/min (>60); GFR (African American) 119 ML/MIN (>60)
[2020-10-08 06:41] LABS: Calcium 9.1 mg/dl (8.4-10.2); Glucose 278 mg/dl (74-100); Magnesium 1.6 mg/dl (1.6-2.3)
[2020-10-08 07:07] LABS: Lymphocytes % 4 % (10-50); Monocytes % 2 % (2-9); Neutrophils % 94 % (42-76); Total Cells Counted 100
[2020-10-08 07:08] LABS: Hypochromasia 2+; Platelet Estimate Normal
--- NOTE | 2020-10-08 07:17 | PC.WOUNDNOTE ---
Wound Location:RIGHT ANKLE Width:. Depth: Undermining Y/N: Tunneling cm: Granulation %: Slough/necrotic tissue %: Inflammation/swelling Y/N: Pain and/or tenderness Y/N: Exudate: Serosanguinous Sanguinous Serosanguinous Seropurulent Purulent-YES Color: Clear [place] Cloudy/milky [place] Red Green Yellow-YES Brown [place] Blue Consistency: Thick Thin Amount: None Scant-Y Small Moderate Large Odor Y/N:N ULCER TYPE SORE TO RIGHT ANKLE,COVERED WITH TELF AND KERLIX
--- NOTE | 2020-10-08 07:55 | HMH.PHAVTE ---
[facility] Pharmacy VTE Monitoring - Patient Demographics Admission date: 10/08/20 Report Date: 10/08/20 Time: 07:55 Allergies/Adverse Reactions: Patient Allergies cefepime Allergy (Severe, Verified 09/24/20 09:36) BLEEDING SORES pantoprazole [From Protonix] Allergy (Severe, Verified 09/24/20 09:36) Diarrhea piperacillin [From ZOSYN] Allergy (Severe, Verified 09/24/20 09:36) RENAL FAILURE tazobactam [From ZOSYN] Allergy (Severe, Verified 09/24/20 09:36) RENAL FAILURE vancomycin [VANCOMYCIN] Allergy (Severe, Verified 09/24/20 09:36) RENAL FAILURE ciprofloxacin [From CIPRO] Allergy (Intermediate, Verified 09/24/20 09:36) JOINT PAIN doxazosin Allergy (Intermediate, Verified 09/24/20 09:36) LOW BP/DEHYDRATION hydralazine [HYDRALAZINE] Allergy (Intermediate, Verified 09/24/20 09:36) LOW BP/DEHYDRATION nifedipine Allergy (Intermediate, Verified 09/24/20 09:36) LOW BP/DEHYDRATION pioglitazone [From ACTOS] Allergy (Intermediate, Verified 09/24/20 09:36) CHEST CONGESTION rosiglitazone [From AVANDIA] Allergy (Intermediate, Verified 09/24/20 09:36) CHEST CONGESTION sulfamethoxazole [From BACTRIM] Allergy (Intermediate, Verified 09/24/20 09:36) JOINT SWELLING trimethoprim [From BACTRIM] Allergy (Intermediate, Verified 09/24/20 09:36) JOINT SWELLING exenatide [From BYDUREON] Allergy (Unknown, Verified 09/24/20 09:36) Unknown allergy reaction sucralfate [From CARAFATE] Allergy (Unknown, Verified 09/24/20 09:36) Unknown allergy reaction esomeprazole [From Nexium] Adverse Reaction (Intermediate, Verified 09/24/20 09:36) carvedilol Adverse Reaction (Verified 09/24/20 09:36) Difficulty Breathing Height: 1.91 m Weight: 181.3 kg Patient Problems: Current Active Problems Chronic anticoagulation (Chronic) Pathological fracture of acetabulum (Acute) Obesity (Acute) Diabetes 1.5, managed as type 1 (Acute) 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 (Chronic) History of left below knee amputation (Acute) - VTE Risk Labs: VTE Related Lab Results Hgb 11.1 g/dL (14.1-18.0) L 10/08/20 05:21 Hct 37.2 % (42.0-52.0) L 10/08/20 05:21 Plt Count 229 K/mm3 (142-424) 10/08/20 05:21 BUN 33 mg/dl (9-20) H 10/08/20 05:21 Creatinine 0.80 mg/dl (0.66-1.25) 10/08/20 05:21 Estimated Creat Clear 93 mL/min (50-200) 10/08/20 05:21 VTE Score: 9 VTE Risk Level: Moderate Risk - Prophylaxis VTE Prophylaxis Ordered?: Yes Types of VTE Prophylaxis: TEDS Knee High, Pharmacological Location of Applied Device: Bilateral Lower Extremeties Pharmacologic Type: Other (XARELTO)
--- NOTE | 2020-10-08 08:32 | HMH.PHAINT ---
HOME MEDICATION LIST VERIFIED USING LIST FROM [facility]
[2020-10-08 08:33] LABS: POC Glucose,Bedside 259 (70-110)
--- NOTE | 2020-10-08 08:36 | HMH.HP ---
*Admission Date: 10/08/20 <Destiny Farah 10/08/20 08:53> *Chief complaint: left hip pain <Destiny Farah 10/08/20 08:53> *History of present illness: Mr. Worthy is a 59-year-old male with known metastatic thyroid cancer with pathologic changes in the left pelvis. He states he was helping his move some furniture last weekend for and noticed that the pain in his left hip had increased after lifting. He states it felt a little bit better and he went to see his oncologist on Sunday to get results of his PET scan which did show enlargement of his cancer in the hip. A new chemo pill was ordered. He states after walking at , his left hip was extremely sore. He went home and rested it and it seemed to feel better. Last night he was trying to get up and move from his chair and he felt a pop in his left hip. He had difficulty making it back to his chair and was then unable to ambulate without severe pain. He presented to the emergency room and was subsequently admitted and started on pain medication. He had a steroid injection in the left hip approximately [address] Smiley which did give him some relief. His pain is controlled as long as he does not move. <Destiny Farah 10/08/20 08:53> [facility] History I have reviewed the patient's past medical history: Yes <Destiny Farah 10/08/20 08:53> Medical History: Reports:: Asthma, Atherosclerotic Heart Disease, Atrial Fibrillation, Cancer, Congestive Heart Failure, Coronary Artery Disease, Deep Vein Thrombosis, Diabetes Mellitus Type 2, Heart Murmur, Hyperlipidemia, Hypertension, Myocardial Infarction, Palpitations, Peripheral Artery Disease, Peripheral Vascular Disease, Pulmonary Embolism, Ulcer Denies:: Diabetes Mellitus Type 1, Internal Pacemaker, MRSA, Seizures <Destiny Farah 10/08/20 08:53> *Have you ever received a pneumonia vaccine?: Yes <Destiny Farah 10/08/20 08:53> *Have you received a flu vaccine this season?: Yes <Destiny Farah 10/08/20 08:53> Other Medical History: Reports: Anemia, Arthritis, Cataracts, Chemotherapy, Hoarseness, Hormone Therapy, Hypothyroidism, Sinus Problems, Thyroid Disease, Other. Denies: Blood Transfusion Reaction <Destiny Farah 10/08/20 08:53> Laterality Cases: Left: Other, Bilateral: Tonsillectomy <Destiny Farah 10/08/20 08:53> Other Surgeries: Yes: Cancer Surgery, Cardiac Catheterization, Cardiac Surgery, Cholecystectomy, Colonoscopy, Coronary Stent, EGD, Thyroidectomy, Other (I&D, foot surgeries, vasectomy). No: Pacemaker <Destiny Farah 10/08/20 08:53> Amputation: Yes <Destiny Farah 10/08/20 08:53> Fractures: No <Destiny Farah 10/08/20 08:53> - *Social History Last grade of school completed: High school graduate <Destiny Farah 10/08/20 08:53> Smoking Status: Former smoker <Destiny Farah 10/08/20 08:53> Tobacco Type: cigarettes <Destiny Farah 10/08/20 08:53> Smoking End Date: 30 years ago <Destiny Farah 10/08/20 08:53> Alcohol Intake: never <Destiny Farah 10/08/20 08:53> Alcohol Intake Frequency:: 0-2 drinks per day <Destiny Farah 10/08/20 08:53> Substance Use Type: denies use <Destiny Farah 10/08/20 08:53> *Occupational Status:: disabled <Destiny Farah 10/08/20 08:53> Housing: house <Destiny Farah 10/08/20 08:53> Household Members: spouse <Destiny Farah 10/08/20 08:53> *Travel in the last 8 weeks: None <Destiny Farah 10/08/20 08:53> Family Hx:: Adopted <Destiny Farah 10/08/20 08:53> Review of Systems - Constitutional Denies chills, Denies fever(s), Denies weakness <Destiny Farah 10/08/20 08:53> - Eyes Denies blurry vision, Denies double vision <Destiny Farah 10/08/20 08:53> - ENT Denies nasal congestion, Denies sore throat <Destiny Farah 10/08/20 08:53> - *Cardiovascular Denies chest pain, Denies shortness of breath <Destiny Farah 10/08/20 08:53> - *Respiratory Denies cough, Denies shortness of breath <Destiny Farah 10/08/20 08:53> - *Gastrointe
--- NOTE | 2020-10-08 11:17 | PC.NURSE ---
PT WANTED BYSTOLIC AND XARELTO TO BE ORDERED NIGHT TIME MEDS . PHARMACY NOTIFIED OF THIS.
--- NOTE | 2020-10-08 12:19 | PC.NURSE ---
1130 = PT CARE TO BE TAKEN OVER BY NICK WALTON RN. NICK UNDERSTANDS ALL COMPONENTS OF REPORT.
--- NOTE | 2020-10-08 12:58 | PC.NURSE ---
verified with dr. coreas that patient could have a diet of 1800 calorie ada diet. also okay to order hctz, and the senna for patient. md wants to continue holding the potassium pill
--- NOTE | 2020-10-08 12:59 | HMH.ORTHOCON ---
*Admission Date: 10/08/20 *Reason for consult:: L hip pain *History of present illness: Mr. Worthy is a 59-year-old gentleman admitted overnight with pain in the left hip. He has a history of metastatic thyroid cancer and has been under the care of Dr. Soliman at for around 6 years for this. I have reviewed his records from and spoken with Dr. Soliman on the phone. The patient underwent total thyroidectomy in 2014 and has been diagnosed with an aggressive papillary thyroid carcinoma, follicular variant. He has metastases to the lung, ischium, ilium, manubrium, ribs, left humerus, spine and mandible. He has had iodine therapy and failed 2 previous chemotherapy agents, sorafenib and pazopanib. He saw Dr. Soliman yesterday and levatinib was prescribed; he is to start this today. He has undergone left below-knee amputation in [address] Vizcarra at , followed by surgery in the left humerus in 2017. This included a radical resection of the left humeral shaft, neuroplasty of the radial nerve, and reconstruction with an intercalary prosthesis. In addition to the thyroid carcinoma he has a history of diabetes, hypertension and previous Charcot arthropathy with diabetic ulcers and osteomyelitis leading to his BKA. He also had wound healing issues after surgery on his jaw, which he experienced right mandible tumor resection and TMJ replacement. According to Dr. Soliman, his chemotherapy is a VEGF inhibitor. The patient currently reports pain in the left hip, predominantly in the groin region, exacerbated by weightbearing and range of motion. After his appointment at yesterday, he had a lot of soreness in his hip. After he went home and rested it, did feel somewhat better. Additionally, he helped his move some furniture last weekend for and had increased pain after this episode. Last night when he tried to get up out of his chair he felt a pop in the left hip, after which time his pain has been severe. He had a steroid injection in the left hip approximately [address] Smiley, which she said did give him some pain relief. [facility] History I have reviewed the patient's past medical history: Yes Medical History: Reports:: Asthma, Atherosclerotic Heart Disease, Atrial Fibrillation, Cancer, Congestive Heart Failure, Coronary Artery Disease, Deep Vein Thrombosis, Diabetes Mellitus Type 2, Heart Murmur, Hyperlipidemia, Hypertension, Myocardial Infarction, Palpitations, Peripheral Artery Disease, Peripheral Vascular Disease, Pulmonary Embolism, Ulcer Denies:: Diabetes Mellitus Type 1, Internal Pacemaker, MRSA, Seizures *Have you ever received a pneumonia vaccine?: Yes *Have you received a flu vaccine this season?: Yes Other Medical History: Reports: Anemia, Arthritis, Cataracts, Chemotherapy, Hoarseness, Hormone Therapy, Hypothyroidism, Sinus Problems, Thyroid Disease, Other. Denies: Blood Transfusion Reaction Laterality Cases: Left: Other, Bilateral: Tonsillectomy Other Surgeries: Yes: Cancer Surgery, Cardiac Catheterization, Cardiac Surgery, Cholecystectomy, Colonoscopy, Coronary Stent, EGD, Thyroidectomy, Other (I&D, foot surgeries, vasectomy). No: Pacemaker Amputation: Yes Fractures: No - *Social History Last grade of school completed: High school graduate Smoking Status: Former smoker Tobacco Type: cigarettes Smoking End Date: 30 years ago Alcohol Intake: never Alcohol Intake Frequency:: 0-2 drinks per day Substance Use Type: denies use *Occupational Status:: disabled Housing: house Household Members: spouse *Travel in the last 8 weeks: None Family Hx:: Adopted Review of Systems - Review of Systems Review of systems:: pertinent systems reviewed and negative unless documented below - *Neurologic Denies confusion, Denies dizziness, Denies localized weakness, Denies headache(s), Denies dizziness, Denies weakness Meds Home Medications Medication Instructions Recorded Confirmed Type Calcium Carbonate [Calcium] 4,000 mg PO DAILY 07/01/17 10/08/20 Hist
[2020-10-08 14:17] LABS: POC Glucose,Bedside 264 (70-110)
--- NOTE | 2020-10-08 14:39 | SW/DCPLANNER ---
I have spoke with this patient and patients regarding discharge plans. Patient stated that Dr Hidalgo is not operating and that he will continue non weight bearing status. Patient stated that his plans were to return home at time of discharge. I did discuss options of home health vs placement with patient and : not interested in any resources at this time. Patient nor have any further needs/questions at this time. I will continue to follow up with patient/ until medically stable for discharge. I have also informed Dr Pandya of situation.
--- NOTE | 2020-10-08 15:42 | PC.NURSE ---
patient has done okay this shift. some complaints of pain. meds adjusted to how he takes at home. bux office stated there was nothing for them to do since he had a fracture. patient tolerating diet. instructed to stay off/not use that hip. has sat on side of bed. assistance with urinal provided. brought more medications which were locked in drawer with rest of meds. no other complaints other than pain.
[2020-10-08 17:20] LABS: POC Glucose,Bedside 302 (70-110)
[2020-10-08 22:44] LABS: POC Glucose,Bedside 338 (70-110)
[2020-10-09 04:00] VITALS: BP 125/57; PULSE 67; RESP 16; TEMP 36.4; O2SAT 96; BMI 49.8
[2020-10-09 04:56] VITALS: RESP 17
[2020-10-09 06:41] LABS: POC Glucose,Bedside 170 (70-110)
--- NOTE | 2020-10-09 06:42 | PC.NURSE ---
Pt resting comfortably thru the night and in no acute distress. Pt compliant with Rx and Insulin coverage required 2 X 10 units 2100 and 2 units 0600. Pt required pain medication for chronic pain in Left Hip. Tolerated pain Rx well and pain had subsided. Will continue to monitor for any acute changes.
--- NOTE | 2020-10-09 06:44 | PC.NURSE ---
At 0600, pt refused fluids, stopped fluids per request. Educated patient on need for fluids, patient verbally understood.
[2020-10-09 08:00] VITALS: BP 136/68; PULSE 69; RESP 18; TEMP 36.6; O2SAT 96
--- NOTE | 2020-10-09 08:33 | HMH.ACPN2 ---
Internal Medicine - PN: Subj *Date: 10/09/20 *Time: 08:33 Interval history: He rested fairly well last night. Left hip pain is better this morning. Exam Vital signs and Labs for Last 24 Hours: Temp Pulse Resp BP Pulse Ox 97.5 F L 67 17 125/57 L 96 10/09/20 04:00 10/09/20 04:00 10/09/20 04:56 10/09/20 04:00 10/09/20 04:00 Laboratory Results - last 24 hr 10/08/20 05:21: POC Glucose 259 H 10/08/20 12:03: POC Glucose 264 H 10/08/20 16:40: POC Glucose 302 H* 10/08/20 20:43: POC Glucose 338 H* 10/09/20 06:06: POC Glucose 170 H I & O for Last 24 hours: Intake & Output 10/06/20 10/07/20 10/08/20 10/09/20 11:59 11:59 11:59 11:59 Intake Total 0 / 0 1828 / 1828 Output Total 250 / 250 1350 / 1350 Balance -250 / -250 478 / 478 Weight 399 lb 11.169 oz 400 lb 12.806 oz Narrative: He is sitting on the edge of the bed and appears comfortable. Lungs are clear to auscultation. Heart is distant but regular. Assessment and Plan (1) Pathological fracture of acetabulum Status: Acute Qualifiers: Encounter type: initial encounter Laterality: left Qualified Code(s): M84.454A - Pathological fracture, pelvis, initial encounter for fracture Category: Medical Code(s): M84.454A - Pathological fracture, pelvis, initial encounter for fracture (2) Diabetes 1.5, managed as type 1 Status: Chronic Category: Medical Code(s): E10.9 - Type 1 diabetes mellitus without complications (3) History of left below knee amputation Status: Chronic Category: Medical Code(s): Z89.512 - Acquired absence of left leg below knee (4) Obesity Status: Chronic Qualifiers: Obesity type: due to excess calories Obesity classification: adult class 3 (BMI >= 40) Serious obesity comorbidity presence: with serious comorbidity Body mass index: BMI 45.0-49.9 Qualified Code(s): E66.01 - Morbid (severe) obesity due to excess calories; Z68.42 - Body mass index [BMI] 45.0-49.9, adult Category: Medical Code(s): E66.9 - Obesity, unspecified (5) Chronic anticoagulation Status: Chronic Category: Medical Code(s): Z79.01 - terminal clerk (current) use of anticoagulants (6) 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 transplanted heart: [place] heart Associated angina: without angina Qualified Code(s): I25.10 - Atherosclerotic heart disease of [place] coronary artery without angina pectoris Category: Medical Code(s): I25.10 - Atherosclerotic heart disease of [place] coronary artery without angina pectoris (9) Degenerative joint disease (DJD) of lumbar spine Status: Chronic Category: Medical Code(s): M47.816 - Spondylosis without myelopathy or radiculopathy, lumbar region (10) Ex-smoker Status: Chronic Category: Social Hx Code(s): Z87.891 - Personal history of nicotine dependence (11) HBP (high blood pressure) Status: Chronic Qualifiers: Hypertension type: essential hypertension Qualified Code(s): I10 - Essential (primary) hypertension Category: Medical Code(s): I10 - Essential (primary) hypertension (12) History of DVT (deep vein thrombosis) Status: Chronic Category: Medical Code(s): Z86.718 - Personal history of other venous thrombosis and embolism (13) History of coronary artery stent placement Status: Chronic Category: Surgical Code(s): Z95.5 - Presence of coronary angioplasty im
--- NOTE | 2020-10-12 14:25 | HMH.DCSUM ---
General - General Admission date:: 10/08/20 <Prem Pandya - 10/25/20 22:15> 10/08/20 <Destiny Farah - 10/12/20 14:29> Discharge date: 10/09/20 <Destiny Farah - 10/12/20 14:29> HPI HPI: Mr. Worthy is a 59-year-old male with known metastatic thyroid cancer with pathologic changes in the left pelvis. He states he was helping his move some furniture last weekend for [facility] and noticed that the pain in his left hip had increased after lifting. He states it felt a little bit better and he went to see his oncologist on Sunday to get results of his PET scan which did show enlargement of his cancer in the hip. A new chemo pill was ordered. He states after walking at , his left hip was extremely sore. He went home and rested it and it seemed to feel better. Last night he was trying to get up and move from his chair and he felt a pop in his left hip. He had difficulty making it back to his chair and was then unable to ambulate without severe pain. He presented to the emergency room and was subsequently admitted and started on pain medication. He had a steroid injection in the left hip approximately [address] Smiley which did give him some relief. His pain is controlled as long as he does not move. <Destiny Farah - 10/12/20 14:29> Hospital Course Hospital Course: Patient was admitted and started on pain medication. It was felt there was a pathologic nondisplaced fracture versus tumor extension in the left acetabular area on CT scan. Orthopedics was consulted. He was seen by Dr. Becerra who discussed the case with the patient's oncologist as well as an orthopedic oncologist that had treated him previously. They all felt the patient was a very poor candidate for large reconstructive surgery. Her recommendation was nonweightbearing on the left lower extremity and potentially focusing radiation in this area for the next 4 to 6 weeks. She recommended follow-up with his oncologist and his orthopedic oncologist. She felt he could be discharged whenever medically appropriate. By 10/09/2020, the patient rested better his hip pain had improved slightly. He was stable to be discharged home and will follow up with both Dr. Becerra and Dr. Pandya. <Destiny Farah - 10/12/20 14:29> Objective Vital signs: Temp Pulse Resp BP Pulse Ox 97.8 F 69 18 136/68 96 10/09/20 08:00 10/09/20 08:00 10/09/20 08:00 10/09/20 08:00 10/09/20 08:00 <Prem Pandya - 10/25/20 22:15> Temp Pulse Resp BP Pulse Ox 97.8 F 69 18 136/68 96 10/09/20 08:00 10/09/20 08:00 10/09/20 08:00 10/09/20 08:00 10/09/20 08:00 <Destiny Farah - 10/12/20 14:29> Narrative: He is sitting on the edge of the bed and appears comfortable. Lungs are clear to auscultation. Heart is distant but regular. <Destiny Farah - 10/12/20 14:29> DS: Diagnosis - Discharge Diagnosis (1) Pathological fracture of acetabulum Status: Acute (2) Diabetes 1.5, managed as type 1 Status: Chronic (3) History of left below knee amputation Status: Chronic (4) Obesity Status: Chronic (5) Chronic anticoagulation Status: Chronic (6) 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 Status: Chronic (7) COPD (chronic obstructive pulmonary disease) Status: Chronic (8) Coronary artery disease Status: Chronic (9) Degenerative joint disease (DJD) of lumbar spine Status: Chronic (10) Ex-smoker Status: Chronic (11) HBP (high blood pressure) Status: Chronic (12) History of DVT (deep vein thrombosis) Status: Chronic (13) History of coronary artery stent placement Status: Chronic (14) History of left below knee amputation Status: Chronic (15) History of mandibular surgery Status: Chronic (16) History of peptic ulcer disease Status: Chronic (17) History of pulmonary embolus (PE) Status: Chronic <Destiny Farah - 10/12/20 14:25
== END 2020-10-09 14:00 | disposition home or self-care (01) ==
LOC: ER 10-08 00:14 → 2ND 10-08 02:25
PROVIDERS: Admitting Provider Family Medicine; Emergency Provider Emergency Medicine; PCP Family Medicine; Visit Provider Family Medicine
DX: M84.550A Pathological fracture in neoplastic disease, pelvis, initial encounter for fracture (principal); C73 Malignant neoplasm of thyroid gland; C79.51 Secondary malignant neoplasm of bone; Z86.718 Personal history of other venous thrombosis and embolism; Z86.711 Personal history of pulmonary embolism; I48.91 Unspecified atrial fibrillation; Z79.01 Long term (current) use of anticoagulants; I11.0 Hypertensive heart disease with heart failure; I50.9 Heart failure, unspecified; I25.10 Atherosclerotic heart disease of native coronary artery without angina pectoris; I25.2 Old myocardial infarction; Z89.512 Acquired absence of left leg below knee; M47.816 Spondylosis without myelopathy or radiculopathy, lumbar region; Z79.4 Long term (current) use of insulin; E11.9 Type 2 diabetes mellitus without complications; Z88.2 Allergy status to sulfonamides; Z88.1 Allergy status to other antibiotic agents; Z88.8 Allergy status to other drugs, medicaments and biological substances; J44.9 Chronic obstructive pulmonary disease, unspecified; E66.01 Morbid (severe) obesity due to excess calories; Z68.42 Body mass index [BMI] 45.0-49.9, adult
CPT/HCPCS: 36415; 72100; 72131; 73502; 73700; 80048; 80076; 82962; 83735; 85007; 85025; 85651; 86140; 87581; 87633; 87798; 96374; 96375; 99281; G0378; J2405

== ENCOUNTER → 2020-10-22 08:12 | Outpatient (CLI) | payer MEDICARE, OTHER, SELFPAY ==
--- NOTE | 2020-10-22 08:23 | XR_ITS ---
PROCEDURE: XR HIP LT 2-3V W/PELVIS CLINICAL INDICATION: lt hip follow up COMPARISON: CR XR HIP LT 2-3V W/PELVIS from 10/08/[address] HIP LT WO CON from 10/08/2020 FINDINGS: This exam is very limited secondary to patient's body habitus and the fact that they are performed with weight-bearing technique. Are mild osteoarthritic changes involving both hips. Postsurgical changes are present in the lower lumbar spine. Lytic lesion is once again noted in the left super acetabular region and lower ilium measuring approximately 6.6 x 3 cm similar to the previous exam. There may be some periosteal reaction along the iliopectineal line. This is somewhat difficult to evaluate but had a similar appearance on the previous exam. IMPRESSION: Overall no change in the lytic lesion of the left super acetabular region. Dictated by: Paul Grace MD 10/22/2020 17:23 Paul Grace MD in [place] 10/22/2020 17:23
== END ==
PROVIDERS: PCP Family Medicine; Visit Provider Orthopaedic Surgery
DX: M25.552 Pain in left hip (principal)
CPT/HCPCS: 73502

== ENCOUNTER 2020-12-14 13:38 | Outpatient (RCR) | payer MEDICARE, OTHER, SELFPAY ==
--- NOTE | 2020-12-14 15:01 | HMH.PTOPWND ---
Rehab Outpt Wound Evaluation Rehab OP Wound Evaluation Start: 12/14/20 14:51 Freq: Status: Active Protocol: Document 12/14/20 14:52 [email or web address] (Rec: 12/14/20 15:01 [email or web address] [id number]) Electronically Signed By Jl Solomon PT 12/14/20 14:52 Subjective/History History History THis is the initial wound clinic evaluation for Can Worthy. Pt is a 59 y/o male referred to PT wound clinic for R 5th toe wound. Pt reports he was remodelling his bathroom and a screw fell into his shoe. Pt is diabetic and has neuropathy so was unaware of screw until later in the evening. Pt reports the screw started a sore on his 5th toe. Pt states he was using muporicin on the wound for the last month w/out any improvement. Subjective Subjective no complaints from pt- pt states i figure I'm gonna lose that toe Wound Eval Subjective History Subjective wound began ~ 1 month ago Wound Right Medial Foot Wound Type Diabetic Foot Ulcer Wound Length (cm) 1.0 Wound Width (cm) 0.5 Wound Bed Appearance [place] Percentage Granulated (%) 100 Primary Dressing Absorbant Pad Comment polymem dot Right Toe - 5th Digit Wound Type Diabetic Foot Ulcer Is This a Chronic Wound Yes Wound Length (cm) 2.0 Wound Width (cm) 2.0 Wound Bed Appearance Yellow,Slough,Eschar Percentage Granulated (%) 0 Percentage of Slough (%) 100 Percentage of Eschar (Black) (%) 25 Percentage of Eschar (Yellow) (%) 75 Surrounding Tissue Appearance [place] Surrounding Tissue Temperature Warm Drainage Description Serous Drainage Amount Small Drainage Odor Slight Odor Dressing Status Soiled Primary Dressing Silver Dressing Comment tegederm ag mesh Wound Secondary Dressing Type Biosynthetic Dressing Comment opticell ag Wound Debridement Method Sharps Wound Debridement Amount of Tissue Moderate Removed Wound Debridement Result Yellow Sloughing Remains Dressing Change Date 12/14/20 Dressing Change Patient To
== END 2020-12-14 13:40 | disposition home or self-care (01) ==
LOC: PT 13:38
PROVIDERS: PCP Family Medicine; Visit Provider Family Medicine
DX: E10.621 Type 1 diabetes mellitus with foot ulcer (principal); L97.511 Non-pressure chronic ulcer of other part of right foot limited to breakdown of skin
CPT/HCPCS: 97162

== ENCOUNTER → 2020-12-14 14:49 | Outpatient (CLI) | payer MEDICARE, OTHER, SELFPAY ==
--- NOTE | 2020-12-14 14:59 | XR_ITS ---
PROCEDURE INFORMATION: Exam: XR Right Foot Complete; Alignment Exam date and time: 12/14/2020 2:59 PM Age: 59 years old Clinical indication: Pain; Foot; Right; Additional info: Ulcer TECHNIQUE: Imaging protocol: XR Right foot. Views: 3 or more views. COMPARISON: CA VENOUS DOPPLER LE RT 06/17/2020 1:07 PM FINDINGS: Bones/joints: There is no evidence of acute fracture. There is no evidence of joint malalignment or dislocation. Soft tissues: Mild soft tissue swelling. There are no soft tissue masses or fluid collections. Vasculature: The vasculature demonstrates diffuse mild atherosclerotic calcification. IMPRESSION: 1. Mild soft tissue swelling. 2. No evidence of acute fracture. 3. No evidence of acute dislocation.
[2020-12-14 15:06] LABS: Basophils # 0.1 K/mm3 (0-0.2); Basophils % 0.8 % (0.1-2.0); Eosinophils # 0.2 K/mm3 (0.0-0.4); Hematocrit 40.3 % (42.0-52.0); Lymphocytes # 1.4 K/mm3 (0.7-4.5); Lymphocytes % 12.4 % (10-50); Mean Corpuscular HGB Conc 32.2 g/dL (31.8-35.4); Mean Corpuscular Volume 80.7 fl (80-94); Mean Platelet Volume 8.1 fl (7.4-10.4); Monocytes # 0.6 K/mm3 (0.1-1.0); Monocytes % 5.7 % (1.7-9.3); Neutrophils # 8.6 K/mm3 (1.8-7.8); Neutrophils % 79.1 % (37.0-80.0); Platelet Count 296 K/mm3 (142-424); Red Blood Count 4.99 M/mm3 (4.60-6.20); Red Cell Distribution Width 15.9 % (11.5-17.5); White Blood Count 10.9 K/mm3 (4.8-10.8)
[2020-12-14 15:29] LABS: Hemoglobin A1C 8.9 % (4.0-6.0)
[2020-12-14 15:59] LABS: Erythrocyte Sedimentation Rate 74 mm/hr (0-20)
[2020-12-14 16:29] LABS: Chloride 96 mmol/L (98-107)
[2020-12-14 16:30] LABS: Potassium 4.4 mmoL/L (3.5-5.1); Sodium 134 mmol/L (136-145)
[2020-12-14 16:32] LABS: Blood Urea Nitrogen 17 mg/dl (9-20); Estimated Glomerular Filt Rate 98 ml/min (>60); GFR (African American) 119 ML/MIN (>60)
[2020-12-14 16:33] LABS: Alanine Aminotransferase 27 U/L (12-78); Albumin Level 3.7 g/dl (3.5-5.0); Albumin/Globulin Ratio 1.2 (1.1-1.8); Alkaline Phosphatase 146 U/L (38-126); Anion Gap 14.4 mEq/L (5-15); Aspartate Amino Transferase 28 U/L (17-59); Bilirubin,Total 0.3 mg/dl (0.2-1.3); Calcium 8.3 mg/dl (8.4-10.2); Carbon Dioxide 28 mmol/L (22.0-30.0); Globulin 3.2 g/dL (1.3-3.2); Glucose 317 mg/dl (74-100); Total Protein,Serum 6.9 g/dl (6.3-8.2)
[2020-12-14 16:39] LABS: C-Reactive Protein 42.4 mg/L (0-4)
== END ==
PROVIDERS: Visit Provider Podiatrist
DX: Z79.01 Long term (current) use of anticoagulants (principal); Z51.89 Encounter for other specified aftercare; E11.621 Type 2 diabetes mellitus with foot ulcer; L97.519 Non-pressure chronic ulcer of other part of right foot with unspecified severity; Z79.4 Long term (current) use of insulin
CPT/HCPCS: 36415; 73630; 80053; 83036; 85025; 85651; 86140; 87070; 87077; 87186; 87205

== ENCOUNTER → 2020-12-16 14:48 | Outpatient (CLI) | payer MEDICARE, OTHER, SELFPAY ==
--- NOTE | 2020-12-16 | ECG_ITS ---
APPROVED REPORT Exam: Resting ECG HR:74 bpm ECG Measurements Heart Rate 74 AXES NE 416 P 12 QRSd 80 QRS 67 QT 388 T 74 QTc 430 Conclusion Sinus rhythm with 1st degree AV block Otherwise normal ECG Electronically signed by : Richie Coulter, 12/16/2020 17:31:22
--- NOTE | 2020-12-16 | US_ITS ---
APPROVED REPORT Exam Type: Ankle to Brachial Index Celery Tier: Nelly Ramirez RT(R) Indications Claudication: Right Non-healing Ulcer: Right Rest Pain: Right PAD CAD Left BKA. Rt 5th digit non healing ulcer with amputation planned for tomorrow. Risk Factors History of PAD: Bilaterally Hypertension CAD Hyperlipidemia Obesity Diabetes Pressures/Indices Right Indices Left Indices Brachial 156.00 mmHg Brachial Low Thigh 0.00 mmHg 0.00 Low Thigh Calf 0.00 mmHg 0.00 Calf Ankle(PT) 0.00 mmHg 0.00 Ankle(PT) Ankle(DP) 0.00 mmHg 0.00 Ankle(DP) Digit 188.00 mmHg 1.21 Digit Findings RT LINNETTE=NON COMPRESSIBLE LT LINNETTE=Not obtained due to BKA RT TBI=1.21 LT TBI=Not obtained due to BKA Audible pulses detected with doppler on RLE Evident medial calcinoisis with non compessible vessels throughout RLE. Conclusion RT LINNETTE=NON COMPRESSIBLE LT LINNETTE=Not obtained due to BKA RT TBI=1.21 LT TBI=Not obtained due to BKA Audible pulses detected with doppler on RLE Evident medial calcinoisis with non compessible vessels throughout RLE. Electronically signed by : Cirilo Escalante MD 12/17/2020 15:23:24
== END ==
PROVIDERS: PCP Family Medicine; Visit Provider Podiatrist
DX: Z01.818 Encounter for other preprocedural examination (principal); Z20.822 Contact with and (suspected) exposure to COVID-19; E11.621 Type 2 diabetes mellitus with foot ulcer; L97.519 Non-pressure chronic ulcer of other part of right foot with unspecified severity; I70.213 Atherosclerosis of native arteries of extremities with intermittent claudication, bilateral legs; Z79.4 Long term (current) use of insulin
CPT/HCPCS: 93005; 93923; U0003

== ENCOUNTER 2020-12-17 07:19 | Day surgery (SDC) | payer MEDICARE, OTHER, SELFPAY ==
[2020-12-17 08:10] VITALS: BP 159/72; PULSE 73; RESP 18; TEMP 36.2; O2SAT 96; BMI 48.7
[2020-12-17 08:15] LABS: POC Glucose,Bedside 215 (70-110)
--- NOTE | 2020-12-17 09:01 | HMH.OPNOTE ---
Date of procedure: 12/17/20 Pre-op Diagnosis:: 1. Right 5th toe osteomyelitis 2. Right 5th toe gangrene 3. Right medial arch DM ulcer 4. Diabetic foot infection 5. PVD Post-op Diagnosis:: Same Procedure performed:: 1. Right fifth toe amputation 2. Right foot irrigation and wound debridement Surgeon:: June Croft DPM FIELD ACCOUNT DIRECTOR:: Umesh Henry Anesthesia: MAC Estimated blood loss (mL): 15 Clinical Note:: Patient is a 59-year-old diabetic male with a significant past medical history who presents for evaluation of a right fifth toe ulcer. Patient has been on a course of clindamycin per his PCP. He was seen in the wound care clinic on 12/14/20 and referred to the office today. X-rays 12/14/20 3 views right foot evaluated by myself. Report noted. FINDINGS: Bones/joints: There is no evidence of acute fracture. There is no evidence of joint malalignment or dislocation. Soft tissues: Mild soft tissue swelling. There are no soft tissue masses or fluid collections. Vasculature: The vasculature demonstrates diffuse mild atherosclerotic calcification. IMPRESSION: 1. Mild soft tissue swelling. 2. No evidence of acute fracture. 3. No evidence of acute dislocation. Radiographs of the right foot were reviewed and discussed with the patient. We discussed conservative versus surgical treatment options. Conservative treatment options include local wound care, oral and IV antibiotics, change in shoe wear, taping/padding, and off-loading. Patient understands that there is a chance that the toes can migrate to fill the gap or the foot may change shape after surgery. Patient also understands that they could have wound healing complications including delayed healing and infection. We discussed that if the wound does not heal, it is possible that they may need a more proximal amputation and could result in further loss of digits, loss of partial foot or loss of leg. Patient is currently undergoing chemotherapy for cancer that has metastasized to the bone. He is immunocompromise. I discussed the importance of not waiting and letting the infection spread because it would lead to an increased risk of complication and a poor outcome. Did call and discuss plan of care with PCP Dr. Pandya who agrees with surgery and debridement. History of renal failure with vancomycin and Zosyn. Patient reports being on and off IV antibiotics for total of 52 weeks for the left lower extremity while he had Charcot, cellulitis and osteomyelitis infections. We discussed the risks and benefits in great detail. Other surgical risks include: prolonged pain and swelling, further infection requiring oral or IV antibiotics, delay in healing of soft tissue or bone, nerve or blood vessel damage, CRPS/RSD, DVT, anesthesia complications, and even . All questions answered. Patient verbalized understanding. Consent obtained. Discussed plan of care with PCP, Dr. Pandya who gave verbal medical clearance. PCP saw in office last week. Plan for covid, EKG and ABIs today. Labs, 12/14/20: wbc 10.9, esr 74, crp 42.4, creatinine 0.8, gfr 98, glucose 317, Ha1c 8.9% Wound culture, Right 5th toe ulcer: gram stain - NOS. In office glucose finger stick, 12/16/20: 285 Operative findings:: Ulcer noted to the right dorsal lateral fifth PIPJ. Wound base necrotic black with fibrotic slough. There is skin sloughing. Ulcer extends full thickness thru skin, subq, deep fasica to the bone of the proximal phalanx. Visible bone in wound bed. Ulcer is ~3x3x0.5cm. Cellulitis extends to 5th MPJ. Wound noted to the right medial arch at the level of the navicular, extends thru skin into/involving subq. Wound is 1.5x0.5x0.2cm, 70% granular and 30% fibrotic wound base.Post debridement sharply excisionally with a 15 blade and forceps, no purulence and wound base 80% granular, 20% fibrotic tissue. Wound measured 1.5x0.7x0.2cm. Operative note:: On this date and time patient was deemed an appropriate surgical candidate. With informed consent signed, the patient
--- NOTE | 2020-12-17 09:17 | P.PN_ITS ---
[facility] [place] Anesthesia Checklist - Patient Identification Patient Identification: Arm Band - Structural Data Admitted From: Home Planned Operative Procedure/s: Right 5th Toe Amputation Consent for Planned Operative Procedure(s) Verified: Yes Verified Documents: Surgical Consent, History and Physical - NPO Status Verified Time NPO: 00:00 - Additional verifications Anesthesia Reactions: No Hx Blood Transfusions: No Blood Transfusion Reaction: No - Airway Assessment C-Spine Mobility Assessed: Yes (mp2) TMJ Mobility Assessed: Yes Dentition: Edentulous - Neurological Assessment Level of Consciousness: Awake, Alert - Anesthesia Plan Anesthesia Risk discussed: Yes Anesthesia Plan: Verified ASA Class: IV Anesthesia Type: MAC [facility] [place] History I have reviewed the patient's past medical history: Yes Medical History: Reports:: Asthma, Atherosclerotic Heart Disease, Atrial Fibrillation, Cancer (thyroid), Congestive Heart Failure, Coronary Artery Disease, Deep Vein Thrombosis, Diabetes Mellitus Type 2, Heart Murmur, Hyperlipidemia, Hypertension, MRSA, Myocardial Infarction, Palpitations, Peripheral Artery Disease, Peripheral Vascular Disease, Pulmonary Embolism, Ulcer Denies:: Diabetes Mellitus Type 1, Internal Pacemaker, Seizures *Have you ever received a pneumonia vaccine?: Yes *Have you received a flu vaccine this season?: Yes Other Medical History: Reports: Anemia, Arthritis, Cataracts, Chemotherapy, Hoarseness, Hormone Therapy, Hypothyroidism, Sinus Problems, Thyroid Disease, Other. Denies: Blood Transfusion Reaction Anesthesia experience/problems:: nac Laterality Cases: Left: Other, Bilateral: Tonsillectomy Other Surgeries: Yes: Cancer Surgery, Cardiac Catheterization, Cardiac Surgery, Cholecystectomy, Colonoscopy, Coronary Stent, EGD, Thyroidectomy, Other (I&D, foot surgeries, vasectomy). No: Pacemaker Amputation: Yes Fractures: No - *Social History Last grade of school completed: Some college Smoking Status: Never smoker Tobacco Type: cigarettes Alcohol Intake: never Alcohol Intake Frequency:: 0-2 drinks per day Substance Use Type: denies use *Occupational Status:: retired Housing: house Household Members: spouse *Travel in the last 8 weeks: None Family Hx:: Adopted
--- NOTE | 2020-12-17 09:45 | XR_ITS ---
PROCEDURE: XR FOOT RT MIN 3V CLINICAL INDICATION: Post op amp COMPARISON: CR FTL3 FOOT-LT-3 VIEWS from 11/02/2015 CR FTL3 FOOT-LT-3 VIEWS from 11/16/2015 CR FTL3 FOOT-LT-3 VIEWS from 12/14/2015 CR XR FOOT WT BEARING RT 3V from 12/14/2020 FINDINGS: Postop changes of amputation of 5th digit. No focal abnormality of the amputation site. Joint spaces are normal. No acute fracture or dislocation. IMPRESSION: Postop changes of amputation of the 5th digit. Dictated by: Cirilo Escalante MD 12/17/2020 11:13 Cirilo Escalante MD in [place] 12/17/2020 11:13
[2020-12-17 10:00] VITALS: BP 116/80; PULSE 82; RESP 18; O2SAT 94
[2020-12-17 10:15] VITALS: BP 137/56; PULSE 66; RESP 18; O2SAT 94
[2020-12-17 10:30] VITALS: BP 149/70; PULSE 65; RESP 18; O2SAT 95
[2020-12-17 10:45] VITALS: BP 136/67; PULSE 69; RESP 18; O2SAT 95
[2020-12-17 11:00] VITALS: BP 152/70; PULSE 71; RESP 18
== END 2020-12-17 11:00 | disposition home or self-care (01) ==
LOC: OR 07:20
PROVIDERS: PCP Family Medicine; Visit Provider Podiatrist
DX: E11.621 Type 2 diabetes mellitus with foot ulcer (principal); E11.52 Type 2 diabetes mellitus with diabetic peripheral angiopathy with gangrene; M86.671 Other chronic osteomyelitis, right ankle and foot; E11.40 Type 2 diabetes mellitus with diabetic neuropathy, unspecified; L97.512 Non-pressure chronic ulcer of other part of right foot with fat layer exposed; L03.031 Cellulitis of right toe; I11.0 Hypertensive heart disease with heart failure; I50.9 Heart failure, unspecified; I48.91 Unspecified atrial fibrillation; I96 Gangrene, not elsewhere classified; B96.89 Other specified bacterial agents as the cause of diseases classified elsewhere; Z79.4 Long term (current) use of insulin; C73 Malignant neoplasm of thyroid gland; C78.00 Secondary malignant neoplasm of unspecified lung; C79.51 Secondary malignant neoplasm of bone; I25.10 Atherosclerotic heart disease of native coronary artery without angina pectoris
CPT/HCPCS: 11042; 28820; 73630; 82962; 87070; 87075; 87077; 87186; 87205; 88304; 88305; 88311; 96374; J0878

== ENCOUNTER → 2020-12-30 16:35 | Outpatient (CLI) | payer MEDICARE, OTHER, SELFPAY | PROVIDERS: Visit Provider Podiatrist | DX: Z51.89 Encounter for other specified aftercare (principal); E11.621 Type 2 diabetes mellitus with foot ulcer; L97.512 Non-pressure chronic ulcer of other part of right foot with fat layer exposed; Z79.4 Long term (current) use of insulin | CPT/HCPCS: 87070; 87077; 87186; 87205 ==

== ENCOUNTER → 2021-01-13 10:56 | Outpatient (CLI) | payer MEDICARE, SELFPAY ==
[2021-01-13 11:23] LABS: Basophils # 0.1 K/mm3 (0-0.2); Basophils % 1.5 % (0.1-2.0); Eosinophils # 0.2 K/mm3 (0.0-0.4); Eosinophils % 2.2 % (0.1-12.0); Hematocrit 38.3 % (42.0-52.0); Hemoglobin 12.6 g/dL (14.1-18.0); Lymphocytes # 0.8 K/mm3 (0.7-4.5); Lymphocytes % 11.4 % (10-50); Mean Corpuscular HGB Conc 32.9 g/dL (31.8-35.4); Mean Corpuscular Hemoglobin 26.6 pg (27.0-31.2); Mean Corpuscular Volume 81.1 fl (80-94); Mean Platelet Volume 8.6 fl (7.4-10.4); Monocytes # 0.5 K/mm3 (0.1-1.0); Monocytes % 6.9 % (1.7-9.3); Neutrophils # 5.7 K/mm3 (1.8-7.8); Neutrophils % 77.9 % (37.0-80.0); Platelet Count 204 K/mm3 (142-424); Red Blood Count 4.72 M/mm3 (4.60-6.20); Red Cell Distribution Width 16.5 % (11.5-17.5); White Blood Count 7.3 K/mm3 (4.8-10.8)
[2021-01-13 11:55] LABS: Alanine Aminotransferase 21 U/L (12-78); Albumin Level 3.5 g/dl (3.5-5.0); Albumin/Globulin Ratio 1.1 (1.1-1.8); Alkaline Phosphatase 125 U/L (38-126); Anion Gap 8.5 mEq/L (5-15); Aspartate Amino Transferase 26 U/L (17-59); Bilirubin,Total 0.4 mg/dl (0.2-1.3); Blood Urea Nitrogen 17 mg/dl (9-20); Calcium 8.5 mg/dl (8.4-10.2); Carbon Dioxide 33 mmol/L (22.0-30.0); Chloride 100 mmol/L (98-107); Estimated Glomerular Filt Rate 137 ml/min (>60); GFR (African American) 165 ML/MIN (>60); Globulin 3.2 g/dL (1.3-3.2); Glucose 156 mg/dl (74-100); Potassium 4.5 mmoL/L (3.5-5.1); Sodium 137 mmol/L (136-145); Total Protein,Serum 6.7 g/dl (6.3-8.2)
[2021-01-13 12:07] LABS: C-Reactive Protein 38.2 mg/L (0-4)
[2021-01-13 12:19] LABS: Erythrocyte Sedimentation Rate 35 mm/hr (0-20)
== END ==
PROVIDERS: Visit Provider Podiatrist
DX: T81.31XA Disruption of external operation (surgical) wound, not elsewhere classified, initial encounter (principal); Z98.890 Other specified postprocedural states
CPT/HCPCS: 36415; 80053; 85025; 85651; 86140

== ENCOUNTER 2021-01-17 11:00 | Outpatient (RCR) | payer MEDICARE, SELFPAY ==
--- NOTE | 2021-01-05 16:39 | HMH.PTOPWND ---
Rehab Outpt Wound Evaluation Rehab OP Wound Evaluation Start: 01/05/21 16:29 Freq: Status: Active Protocol: Document 01/05/21 16:29 LEATHAMILAGROS (Rec: 01/05/21 16:39 PWMILAGROS [id number]) Electronically Signed By Jl Solomon PT 01/05/21 16:29 Subjective/History History History This is the initial wound clinic evaluation for Can Worthy. Pt is a 60 y/o male referred to Wound clinic s/p R 5th toe and ray amputation w/ dehisence of surgical incision. Pt reports he had amputation due to osteomyelitis ~ 19 of December and reports on his follow up his incision had busted open. Pt now reports to PT for continued wound care on surgical incision and various other small wounds on RLE. Subjective Subjective no complaints from pt Wound Eval Wound Right Medial Foot Wound Type Stasis Ulcer Wound Length (cm) 0.7 Wound Width (cm) 0.5 Percentage Granulated (%) 100 Wound Margins Description Well Defined Drainage Description Serous Drainage Amount Scant Drainage Odor No Odor Dressing Status Soiled Primary Dressing Unna Boot Wound Secondary Dressing Type Unna Boot Right Medial Calf Wound Type Stasis Ulcer Wound Length (cm) 0.8 Wound Width (cm) 0.8 Wound Bed Appearance Beefy Red Percentage Granulated (%) 100 Wound Margins Description Well Defined Surrounding Tissue Appearance [place] Drainage Description Serous Drainage Amount Scant Drainage Odor No Odor Primary Dressing Unna Boot Wound Secondary Dressing Type Unna Boot Right Lateral Foot Wound Type Incision Wound Length (cm) 4.5 Wound Width (cm) 2.0 Number of Sutures 5 Wound Bed Appearance Yellow,Slough,Eschar,Necrotic Percentage Granulated (%) 0 Percentage of Eschar (Black) (%) 50 Percentage of Eschar (Yellow) (%) 50 Wound Margins Description Indistinct Surrounding Tissue Appearance [place] Drainage Description Serous Drainage Amount Moderate Drainage Odor No Odor Dressing Status Soiled Primary Dressing
== END 2021-01-17 11:05 | disposition home or self-care (01) ==
LOC: PT 11:00
PROVIDERS: Visit Provider Podiatrist
DX: E11.621 Type 2 diabetes mellitus with foot ulcer (principal); L97.519 Non-pressure chronic ulcer of other part of right foot with unspecified severity; L03.031 Cellulitis of right toe; M86.9 Osteomyelitis, unspecified; Z98.890 Other specified postprocedural states
CPT/HCPCS: 29580; 97163; 97597

== ENCOUNTER → 2021-01-20 10:54 | Outpatient (CLI) | payer MEDICARE, SELFPAY ==
--- NOTE | 2021-01-20 11:17 | ECG_ITS ---
APPROVED REPORT Exam: Resting ECG HR:77 bpm ECG Measurements Heart Rate 77 AXES QRSd 82 QRS 81 QT 398 T 70 QTc 450 Conclusion Atrial fibrillation Abnormal ECG Electronically signed by : Richie Coulter, 01/20/2021 14:22:20
[2021-01-20 11:19] LABS: Basophils # 0.1 K/mm3 (0-0.2); Basophils % 0.5 % (0.1-2.0); Eosinophils # 0.1 K/mm3 (0.0-0.4); Eosinophils % 1.4 % (0.1-12.0); Hemoglobin 11.1 g/dL (14.1-18.0); Lymphocytes # 0.7 K/mm3 (0.7-4.5); Lymphocytes % 7.5 % (10-50); Mean Corpuscular HGB Conc 29.9 g/dL (31.8-35.4); Mean Corpuscular Hemoglobin 25.5 pg (27.0-31.2); Mean Corpuscular Volume 85.2 fl (80-94); Mean Platelet Volume 8.9 fl (7.4-10.4); Monocytes # 0.8 K/mm3 (0.1-1.0); Neutrophils % 82.6 % (37.0-80.0); Platelet Count 211 K/mm3 (142-424); Red Blood Count 4.34 M/mm3 (4.60-6.20); Red Cell Distribution Width 16.5 % (11.5-17.5); White Blood Count 9.7 K/mm3 (4.8-10.8)
--- NOTE | 2021-01-20 11:23 | XR_ITS ---
PROCEDURE: XR CHEST 2V CLINICAL HISTORY: HX OF HIGH BLOOD PRESSURE, PRE OP COMPARISON: CT CT ANGIO CHEST from 07/30/2019 CR XR CHEST 2V from 09/25/2019 CR XR CHEST PORTABLE from 01/08/2020 CR XR CHEST PORTABLE from 06/10/2020 FINDINGS: Mild cardiomegaly is noted. Central pulmonary vasculature is within normal limits. Background of minor chronic interstitial changes. No lobar consolidation, pleural effusions or pneumothorax. Old rib fractures on the left. Degenerative changes of the visualized thoracic spine are noted. IMPRESSION: Mild cardiomegaly. No focal consolidation or pleural effusions. Dictated by: Paulina Barrett 01/20/2021 13:30 Paulina Barrett in [place] 01/20/2021 13:30
[2021-01-20 11:59] LABS: Alanine Aminotransferase 20 U/L (12-78); Albumin Level 3.1 g/dl (3.5-5.0); Alkaline Phosphatase 121 U/L (38-126); Anion Gap 11.6 mEq/L (5-15); Aspartate Amino Transferase 24 U/L (17-59); Bilirubin,Total 0.5 mg/dl (0.2-1.3); Blood Urea Nitrogen 26 mg/dl (9-20); Calcium 7.8 mg/dl (8.4-10.2); Carbon Dioxide 30 mmol/L (22.0-30.0); Chloride 100 mmol/L (98-107); Estimated Glomerular Filt Rate 86 ml/min (>60); GFR (African American) 103 ML/MIN (>60); Glucose 117 mg/dl (74-100); Potassium 4.6 mmoL/L (3.5-5.1); Sodium 137 mmol/L (136-145); Total Protein,Serum 6.1 g/dl (6.3-8.2)
[2021-01-20 12:05] LABS: C-Reactive Protein 111.1 mg/L (0-4)
[2021-01-20 12:12] LABS: Erythrocyte Sedimentation Rate > 140 mm/hr (0-20)
== END ==
PROVIDERS: PCP Family Medicine; Visit Provider Podiatrist
DX: E11.621 Type 2 diabetes mellitus with foot ulcer (principal); L97.519 Non-pressure chronic ulcer of other part of right foot with unspecified severity; Z98.890 Other specified postprocedural states; Z01.818 Encounter for other preprocedural examination; Z20.822 Contact with and (suspected) exposure to COVID-19; Z79.4 Long term (current) use of insulin
CPT/HCPCS: 36415; 71046; 80053; 85025; 85651; 86140; 87070; 87077; 87186; 87205; 93005; U0003

== ENCOUNTER 2021-01-21 09:03 | Day surgery (SDC) | payer MEDICARE, SELFPAY ==
[2021-01-20 16:05] VITALS: BMI 50.0
[2021-01-21] VITALS (10 sets, daily range): BP systolic 95–163; BP diastolic 60–81; PULSE 70–86; RESP 12–18; TEMP 36.2–43; O2SAT 93–97
--- NOTE | 2021-01-21 10:32 | XR_ITS ---
PROCEDURE: XR CHEST PORTABLE CLINICAL HISTORY: PICC line placement COMPARISON: CT CT ANGIO CHEST from 07/30/2019 CR XR CHEST PORTABLE from 01/08/2020 CR XR CHEST PORTABLE from 06/10/2020 CR XR CHEST 2V from 01/20/2021 FINDINGS: Limited study as the lower lungs are not visualized on the current study. Right subclavian PICC line is noted with its tip extending cranially into the neck. Cardiomegaly is noted, partially visualized. No lobar consolidation within the limitations of the study. Old rib fractures on the left. Vascular calcification is noted. Surgical clips in the neck. IMPRESSION: Malposition of right subclavian PICC line. Repositioning is recommended. Dictated by: Paulina Barrett 01/21/2021 11:02 Paulina Barrett in [place] 01/21/2021 11:02
--- NOTE | 2021-01-21 10:39 | XR_ITS ---
PROCEDURE: XR FOOT RT MIN 3V CLINICAL INDICATION: pre op COMPARISON: CR FTL3 FOOT-LT-3 VIEWS from 11/16/2015 CR FTL3 FOOT-LT-3 VIEWS from 12/14/2015 CR XR FOOT WT BEARING RT 3V from 12/14/2020 CR XR FOOT RT MIN 3V from 12/17/2020 FINDINGS: Amputation of the 5th digit is noted. Minor soft tissue swelling is noted at the site of amputation. Bone density is normal. The rest of the tarsals, metatarsals and phalanges are unremarkable. Vascular calcification is noted. Degenerative changes of the tibiotalar joint are noted. Calcaneal spur is noted. IMPRESSION: Fifth digit amputation is noted. Minor soft tissue swelling is noted at the of amputation. Dictated by: Paulina Barrett 01/21/2021 11:27 Paulina Barrett in [place] 01/21/2021 11:27
--- NOTE | 2021-01-21 10:58 | XR_ITS ---
PROCEDURE: XR CHEST PORTABLE PICC PLAC CLINICAL HISTORY: PICC line placement COMPARISON: CT CT ANGIO CHEST from 07/30/2019 CR XR CHEST PORTABLE from 06/10/2020 CR XR CHEST 2V from 01/20/2021 CR XR CHEST PORTABLE from 01/21/2021 FINDINGS: Repositioned right subclavian PICC line is noted with its tip overlying the SVC, in satisfactory position. Cardiomegaly is noted. Costophrenic angles are not included in the study. Small pleural effusions cannot be excluded. There is ill-defined soft tissue density noted projecting over the right hemithorax. This was noted on the prior study of June 10, 2020. There is corresponds to the focal lesion noted on the prior July 30, 2019. IMPRESSION: Right subclavian PICC line is in satisfactory position. Focal ill-defined opacity is noted in the right mid zone. This correspond likely corresponds to the focal soft tissue density lesion noted on the prior CT of June 10, 2020. Nonemergent CT of the thorax with contrast is recommended for further evaluation. Dictated by: Paulina Barrett 01/21/2021 11:41 Paulina Barrett in [place] 01/21/2021 11:41
--- NOTE | 2021-01-21 11:08 | PC.NURSE ---
Addendum entered by Cande Culver RN 01/21/21 11:10: time 0915am Original Note: this nurse spoke with Mary and reported pts vital of BP 162/74 HR 79bpm Pulse OX 94% at this time. she stated to go ahead with the PICC placement.
[2021-01-21 13:05] LABS: POC Glucose,Bedside 129 (70-110)
--- NOTE | 2021-01-21 13:35 | XR_ITS ---
PROCEDURE: XR FOOT RT 2V CLINICAL INDICATION: WOOUND DEBRIDEMENT IN OR COMPARISON: CR FTL3 FOOT-LT-3 VIEWS from 12/14/2015 CR XR FOOT WT BEARING RT 3V from 12/14/2020 CR XR FOOT RT MIN 3V from 12/17/2020 CR XR FOOT RT MIN 3V from 01/21/2021 FINDINGS: Single fluoroscopic image with a localizer at the base of the 4th metatarsal. IMPRESSION: Preoperative single fluoroscopic image. Dictated by: Paulina Barrett 01/21/2021 14:40 Paulina Barrtet in [place] 01/21/2021 14:40
--- NOTE | 2021-01-21 13:54 | P.PN_ITS ---
[facility] Anesthesia Checklist - Patient Identification Patient Identification: Arm Band - Structural Data Admitted From: Home Planned Operative Procedure/s: I&D, Right Foot, TMA Consent for Planned Operative Procedure(s) Verified: Yes Verified Documents: Surgical Consent, History and Physical - NPO Status Verified Time NPO: 00:00 - Additional verifications Anesthesia Reactions: No Hx Blood Transfusions: No Blood Transfusion Reaction: No - Airway Assessment C-Spine Mobility Assessed: Yes (mp3) TMJ Mobility Assessed: Yes Dentition: Edentulous - Neurological Assessment Level of Consciousness: Awake, Alert - Anesthesia Plan Anesthesia Risk discussed: Yes Anesthesia Plan: Verified ASA Class: IV Anesthesia Type: MAC [facility] History I have reviewed the patient's past medical history: Yes Medical History: Reports:: Asthma, Atherosclerotic Heart Disease, Atrial Fibrillation, Cancer (stage 4 tyroid), Congestive Heart Failure, Coronary Artery Disease, Deep Vein Thrombosis, Diabetes Mellitus Type 2, Heart Murmur, Hyperlipidemia, Hypertension, MRSA, Myocardial Infarction, Palpitations, Peripheral Artery Disease, Peripheral Vascular Disease, Pulmonary Embolism, Ulcer Denies:: Diabetes Mellitus Type 1, Internal Pacemaker, Seizures *Have you ever received a pneumonia vaccine?: Yes (2018) *Have you received a flu vaccine this season?: Yes Other Medical History: Reports: Anemia, Arthritis, Cataracts, Chemotherapy, Hoarseness, Hormone Therapy, Hypothyroidism, Sinus Problems, Thyroid Disease, Other. Denies: Blood Transfusion Reaction Anesthesia experience/problems:: nac Laterality Cases: Left: Other, Bilateral: Tonsillectomy Other Surgeries: Yes: Cancer Surgery, Cardiac Catheterization, Cardiac Surgery, Cholecystectomy, Colonoscopy, Coronary Stent, EGD, Thyroidectomy, Other. No: Pacemaker Amputation: Yes Fractures: No - *Social History Last grade of school completed: High school graduate Smoking Status: Never smoker Tobacco Type: cigarettes Alcohol Intake: never Alcohol Intake Frequency:: 0-2 drinks per day Substance Use Type: denies use *Occupational Status:: retired, disabled Housing: house Household Members: spouse *Travel in the last 8 weeks: None Family Hx:: Adopted
--- NOTE | 2021-01-21 15:00 | XR_ITS ---
PROCEDURE: XR FOOT RT MIN 3V CLINICAL INDICATION: Right TMA amp COMPARISON: CR XR FOOT WT BEARING RT 3V from 12/14/2020 CR XR FOOT RT MIN 3V from 12/17/2020 CR XR FOOT RT 2V from 01/21/2021 CR XR FOOT RT MIN 3V from 01/21/2021 FINDINGS: Right transmetatarsal amputation is noted. Antibiotic beads, surgical smith and drain placement is noted at the site of amputation. Bone density is otherwise normal. Vascular calcification is noted. IMPRESSION: Right transmetatarsal amputation. Dictated by: Paulina Barrett 01/21/2021 16:26 Paulina Barrett in [place] 01/21/2021 16:26
--- NOTE | 2021-01-21 15:25 | SUR.OPER ---
1525- family updated of pt's current status via marlen rn
--- NOTE | 2021-01-21 15:40 | P.PN_ITS ---
[facility] Anesthesia Record Part I Intake, IV Amount: 700 Estimated blood loss (mL): 25 Urine output (mL): 0 Blood Pressure: 95/64 SaO2: 93 Pulse Rate: 82 Respiratory Rate: 16 Temperature: 98.8 F Patient is:: Drowsy, Stable Stable to PACU at:: 15:35
--- NOTE | 2021-01-21 15:43 | HMH.OPNOTE ---
Date of procedure: 01/21/21 Pre-op Diagnosis:: 1. Right fifth toe wound dehiscence 2. Right diabetic foot infection, cellulitis 3. Right foot osteomyelitis 4. Right medial foot diabetic ulcer Post-op Diagnosis:: Same Procedure performed:: 1. Right tendo achilles lengthening 2. Right transmetatarsal amputation 3. Derotational skin flap 4. Right medial foot wound debridement 5. Application of antibiotic beads Surgeon:: June Croft DPM [employer]ANCH SERVICE LEADER:: Umesh Henry Anesthesia: MAC, local (20cc 0.5% marcaine plain) Estimated blood loss (mL): 30 Clinical Note:: Patient is a 60-year-old diabetic male who presented to the office 01/20/2021 with worsening right foot infection. He has been on minocycline and most recently linezolid. Previous surgery 12/17/2020. Patient has been noncompliant with treatment. He got the foot wet pressure washing this week and has been weightbearing. He is failing oral antibiotic therapy with worsening lab markers. Recommend PICC line and surgical debridement. Discussed in detail foot structure, risk of recurrent ulceration and Charcot deformity. Discussed amputation of the toe, metatarsal, bone biopsy versus transmetatarsal amputation with tendo Achilles lengthening. Discussed admission versus outpatient treatment. Patient would prefer to remain outpatient. I explained if he gets septic, he needs to come to the ER immediately. Patient understands that there is a chance that the toes can migrate to fill the gap or the foot may change shape after surgery. Patient also understands that they could have wound healing complications including delayed healing and infection. We discussed that if the wound does not heal, it is possible that they may need a more proximal amputation and could result in further loss of digits, loss of partial foot or loss of leg. He has a left below-knee amputation. We discussed the risks and benefits in great detail. Other surgical risks include: prolonged pain and swelling, further infection requiring oral or IV antibiotics, delay in healing of soft tissue or bone, nerve or blood vessel damage, CRPS/RSD, DVT, anesthesia complications, and even . All questions answered. Patient verbalized understanding. Consent obtained. Pre-op labs: ESR, CRP, CBC, CMP, EKG, CXR reviewed. Operative findings:: Right foot cellulitis localized around the fifth toe wound dehiscence site. Exposed fourth and fifth metatarsal heads. Purulence noted to the fourth MPJ. Fifth metatarsal bone was soft and crumbly to the head. Margins metatarsals 1?5 intact and hard with no evidence of cortical erosions proximally. Infection seem to be localized to the open wound and did not appear to track up the tendons. Right foot medial wound. Wound sharply excisionally debrided with a 15 blade and forceps and curette through skin into/involving subcutaneous tissue. Post debridement the wound was 100% granular measured 1.5 x 1.1 x 0.1 cm. *Patient case took 1.5 hours longer than normal due to patient's comorbidities. He was on anticoagulation therapy for CAD and A. fib. Medical doctor advised not to stop anticoagulant therapy. Due to his small vessel disease tourniquet was not utilized. Case took longer due to bleeding and creating the derotational skin flap. Operative note:: On this date and time patient was deemed an appropriate surgical candidate. With informed consent signed, the patient was taken to the operating theater. The patient was positioned supine. MAC anesthesia was induced. No tourniquet used. 20cc 0.5% marcaine plain given. IV Daptomycin 1g via PICC. Right tendo Achilles lengthening: The extremity was prepped and draped in normal sterile fashion. Utilizing a 15 blade stab incision was made x3 in the distal posterior leg. Utilizing the three holes, percutaneous barbara-section of the Achilles was performed with the foot maximally dorsiflexed. Release of Achilles contracture was noted. The incisions were flushed with sterile saline and the wound
--- NOTE | 2021-01-21 17:05 | SUR.PHASEI ---
1535- pt to pacu via stretcher. Report received from Zita LOVE and Pato MENDOZA. Pt is crying rolling in bed with c/o his right shoulder and back hurting. It is reported from KATE and RN that the patient was positioned with arms out by his side during the procedure w/ no unusual movements. 1545- pt is moved to his left side to help with pain. 1555- pt states he feels better laying on his left side. 1605-xray @ bedside. 1615- Detailed report given to Dayanara mendoza.
--- NOTE | 2021-01-21 17:07 | SUR.PHASEI ---
1610- pt laying on his left side raising his right arm up and down stretching it out. Pt states that his arm feels better but is still stiff.
[2021-01-25 09:13] VITALS: BP 122/72; PULSE 73; TEMP 36.2
--- NOTE | 2021-01-25 09:13 | HMH.ANESII ---
[facility] Anesthesia Record Part II Discharge Time: 16:05 Destination: [facility] PACU nurse assessment reviewed?: Yes Patient Condition:: Good Anesthesia Complications:: None Swallowing reflex intact?: Yes Cyanosis?: No Blood Pressure: 122/72 Pulse Rate: 73 Temperature: 97.2 F Mental Status: Alert & Oriented Pain level:: 3 Nausea and/or vomitting:: None Intake, IV Amount: 1,500
== END 2021-01-21 17:12 | disposition home or self-care (01) ==
LOC: OR 09:04
PROVIDERS: PCP Family Medicine; Visit Provider Podiatrist
DX: E11.621 Type 2 diabetes mellitus with foot ulcer (principal); T81.31XA Disruption of external operation (surgical) wound, not elsewhere classified, initial encounter; M67.01 Short Achilles tendon (acquired), right ankle; L97.512 Non-pressure chronic ulcer of other part of right foot with fat layer exposed; M86.671 Other chronic osteomyelitis, right ankle and foot; Z79.4 Long term (current) use of insulin; E11.610 Type 2 diabetes mellitus with diabetic neuropathic arthropathy; E11.40 Type 2 diabetes mellitus with diabetic neuropathy, unspecified; L03.031 Cellulitis of right toe; I11.0 Hypertensive heart disease with heart failure; I50.9 Heart failure, unspecified; I25.10 Atherosclerotic heart disease of native coronary artery without angina pectoris; I48.91 Unspecified atrial fibrillation; Z79.899 Other long term (current) drug therapy; Z79.01 Long term (current) use of anticoagulants
CPT/HCPCS: 11042; 28805; 36569; 71045; 73620; 73630; 76000; 82962; 87070; 87075; 87077; 87186; 87205; 88304; 88305; 88311; 96374; C1751; J0878

== ENCOUNTER 2021-01-22 12:45 | Outpatient (CLI) | payer MEDICARE, SELFPAY ==
[2021-01-22 13:00] VITALS: BP 164/76; PULSE 78; RESP 20; O2SAT 96
--- NOTE | 2021-01-22 15:59 | PC.NURSE ---
pt antibiotic infused by Katherine Reeves, PICC line dressing changed completed in sterile fashion by myself as well. dressing to rle was completed by edgardo tamez.
[2021-01-22 16:16] VITALS: BP 135/78; PULSE 85; RESP 20; O2SAT 95
== END 2021-01-22 14:30 | disposition home or self-care (01) ==
PROVIDERS: PCP Family Medicine; Visit Provider Podiatrist
DX: E11.621 Type 2 diabetes mellitus with foot ulcer (principal); M86.9 Osteomyelitis, unspecified; Z79.4 Long term (current) use of insulin
CPT/HCPCS: 96365; J0878

== ENCOUNTER 2021-01-23 12:47 | Outpatient (CLI) | payer MEDICARE, SELFPAY ==
[2021-01-23 13:41] LABS: Chloride 104 mmol/L (98-107); Sodium 136 mmol/L (136-145)
[2021-01-23 13:43] LABS: Blood Urea Nitrogen 13 mg/dl (9-20); Estimated Glomerular Filt Rate 98 ml/min (>60); GFR (African American) 119 ML/MIN (>60)
[2021-01-23 13:44] LABS: Calcium 7.8 mg/dl (8.4-10.2); Carbon Dioxide 28 mmol/L (22.0-30.0); Creatine Kinase 148 U/L (55-170); Glucose 195 mg/dl (74-100)
--- NOTE | 2021-01-23 15:34 | PC.NURSE ---
dressing on rle changed. foot cleaned with betadine, betadine soaked 4x4 placed on incision/smith, wound to inner right foot and wound on achilles tendon. covered with dry 4x4. wrapped in kerlix and soft roll and tennille wrap.
== END 2021-01-23 15:20 | disposition home or self-care (01) ==
LOC: INF 12:48
PROVIDERS: Nurse Practitioner; PCP Family Medicine; Visit Provider Podiatrist
DX: M86.9 Osteomyelitis, unspecified (principal)
CPT/HCPCS: 80048; 82550; 96365; J0878

== ENCOUNTER 2021-01-24 11:19 | Outpatient (CLI) | payer MEDICARE, SELFPAY ==
[2021-01-24 11:46] VITALS: BP 135/87; PULSE 90; RESP 18; TEMP 36.5; O2SAT 98
[2021-01-24 12:15] VITALS: BP 149/84; PULSE 84; PULSE 89; RESP 18; O2SAT 97
[2021-01-24 12:45] VITALS: BP 166/81; PULSE 81; RESP 18; O2SAT 98
== END 2021-01-24 12:50 | disposition home or self-care (01) ==
LOC: INF 11:19
PROVIDERS: Visit Provider Podiatrist
DX: M86.172 Other acute osteomyelitis, left ankle and foot (principal)
CPT/HCPCS: 96365; 96367; J0878; J1956

== ENCOUNTER 2021-01-25 09:51 | Outpatient (CLI) | payer MEDICARE, SELFPAY ==
[2021-01-25 09:52] VITALS: BP 139/84; PULSE 85; RESP 18; TEMP 36.3; O2SAT 97
[2021-01-25 10:35] VITALS: BP 147/82; PULSE 88; RESP 18; O2SAT 97
[2021-01-25 11:15] VITALS: BP 142/80; PULSE 84; RESP 18; O2SAT 96
== END 2021-01-25 11:15 | disposition home health service (06) ==
LOC: INF 09:51
PROVIDERS: Visit Provider Podiatrist
DX: M86.171 Other acute osteomyelitis, right ankle and foot (principal)
CPT/HCPCS: 96365; 96367; G0463; J0878; J1956

== ENCOUNTER 2021-01-26 09:03 | Outpatient (CLI) | payer MEDICARE, SELFPAY ==
[2021-01-26 09:30] VITALS: BP 149/81; PULSE 91; RESP 18; TEMP 36.4; O2SAT 99
--- NOTE | 2021-01-26 10:15 | PC.NURSE ---
1015-called and left message with linda obando for to notify about pt concerns with swelling and redness.
--- NOTE | 2021-01-26 10:40 | PC.NURSE ---
1040-called podiatry clinic twice and neither tech answered or called back. notified pt about calls and suggested to call the dr office or go to the clinic and try to speak to the office staff themselves.
[2021-01-26 10:55] VITALS: BP 172/81; PULSE 81; RESP 18
== END 2021-01-26 10:55 | disposition home or self-care (01) ==
LOC: INF 09:03
PROVIDERS: Visit Provider Podiatrist
DX: M86.171 Other acute osteomyelitis, right ankle and foot (principal)
CPT/HCPCS: 96365; 96367; G0463; J0878; J1956

== ENCOUNTER 2021-01-26 12:06 | Inpatient (IN) | payer MEDICARE, SELFPAY ==
[2021-01-26] VITALS (17 sets, daily range): BP systolic 121–178; BP diastolic 42–76; PULSE 87–101; RESP 16–18; TEMP 36.1–36.8; O2SAT 96–99; BMI 51.8
--- NOTE | 2021-01-26 12:18 | CT_ITS ---
PROCEDURE: CT LOWER LEG RT WO CON CT FOOT RIGHT WITHOUT CONTRAST CLINICAL HISTORY: post-op pain, swelling COMPARISON: CR XR FOOT RT MIN 3V from 01/21/2021 CR XR FOOT RT MIN 3V from 01/21/[address] FOOT RT WO CON from 01/26/2021 TECHNIQUE: Axial images obtained with sagittal and coronal reformats. All CT scans at the facility use one or more dose reduction, viz: automated exposure control, ma/kV adjustment per patient size (including targeted exams where dose is matched to indication, i.e. head), or iterative reconstruction technique. FINDINGS: Right tib fib: No fracture or dislocation. No lytic or blastic change. There is diffuse vascular calcification. Numerous small calcific densities are present within the soft tissues in the pretibial region and may be due to numerous phleboliths. There is diffuse subcutaneous edema/fluid about the soft tissues of the knee and tib fib. No localized fluid collection is identified but would be extremely difficult to see due to lack of IV contrast. There is a small amount of subcutaneous gas noted along the distal tibia anteriorly there is also a minimal amount of gas density noted anterior to the mid shaft of the fibula within the extensor digitorum longus muscle. Image 86 series 3. No evidence of osteomyelitis. No fracture or dislocation. There is complete disruption of the Achilles tendon 2.7 cm cephalad to the calcaneus and may be iatrogenic in nature. The tendon fragments are by 4 cm. Right foot: There has been a transmetatarsal amputation at the proximal aspect of the metatarsals. The there is a postsurgical drain the at the amputation site. The bony margins are sharp at the amputation site with no convincing evidence of acute osteomyelitis. There is diffuse subcutaneous soft tissue swelling and fluid noted about the ankle and foot. There is a small amount of soft tissue gas present in the subcutaneous region along the anterior aspect of the distal tibia and along the dorsal aspect of the foot. There is diffuse vascular calcification. No acute fracture is apparent. Soft tissue gas is present at the stump of the amputation site. Skin clips are present at this region as well. No large loculated fluid collections are evident. It is difficult to evaluate for small fluid collections secondary to the diffuse edema and subcutaneous fluid and lack of IV contrast. There is some asymmetric soft tissue density noted in the subcutaneous region along the medial aspect of the stump of the amputation site. IMPRESSION: 1. Diffuse subcutaneous edema and subcutaneous fluid noted throughout the tib fib and ankle and midfoot status post transmetatarsal amputation at the mid metatarsal region. Gas density noted at the amputation site which may be postsurgical. There is a small amount of gas along the anterior aspect of the distal tibia and in the right extensor digitorum longus muscle. These could be postsurgical. Gas-forming infection is not excluded as they are not in direct apposition to the surgical site. 2. There is some asymmetric soft tissue density along the medial aspect of the amputation stump which could be due to asymmetric edema/fluid or hemorrhage. Small abscess is not excluded however, this area does not appear to be localized. This area measures approximately 3 by 1.2 cm. This is along the anterior aspect of the surgical drain. 3. No bony erosive process apparent that would indicate acute osteomyelitis. 4. Well-defined tear of the Achilles tendon which may be iatrogenic Dictated by: Paul Grace MD 01/26/2021 13:37 Paul Grace MD in [facility] 01/26/2021 13:37
--- NOTE | 2021-01-26 12:29 | HMH.EDGENADL ---
ED Disposition Clinical Impression: Wound cellulitis, Abscess Osteomyelitis Qualifiers: Osteomyelitis type: subacute Osteomyelitis location: foot Laterality: right Qualified Code(s): M86.271 - Subacute osteomyelitis, right ankle and foot Disposition: Admitted As Inpatient Condition on Discharge: Fair Referrals: Prem Pandya MD [Primary Care Provider] - Time of Disposition: 15:52 - Critical Care Critical Care Time: No Attestation: On , the high probability of a clinically significant, sudden or life threatening deterioration of the following system(s) required my full and direct attention, intervention and personal management. The time I documented below is in addition to time spent performing reported procedures but includes the following listed in this critical care notation. Medical Decision Making - Medical Records Medical records reviewed: Yes: I reviewed the patient's medical records. - Mio Inquiry Pt receiving controlled substance: No Vital Signs: 01/26/21 12:07 01/26/21 15:35 Temperature 98.2 F 98.2 F Temperature Source Oral Oral Pulse Rate 92 H Pulse Rate [Left Radial] 97 H Respiratory Rate 16 18 Blood Pressure 160/75 H Blood Pressure [Right Arm] 178/76 H Blood Pressure Mean [Right Arm] 110 Blood Pressure Source Automatic Cuff Blood Pressure Source [Right Arm] Automatic Cuff Blood Pressure Position Sitting Blood Pressure Position [Right Arm] Sitting 02 Sat by Pulse Oximetry 99 Oxygen Delivery Method Room Air - Lab Data Lab Results 01/26/21 13:20: WBC 9.3, RBC 3.16 L, Hgb 8.3 L, Hct 26.4 L, MCV 83.5, MCH 26.3 L, MCHC 31.6 L, RDW 18.2 H, Plt Count 247, MPV 8.4, Neut % (Auto) 84.1 H, Lymph % (Auto) 6.9 L, [place] % (Auto) 7.1, Eos % (Auto) 1.6, Baso % (Auto) 0.4, Neut # (Auto) 7.8, Lymph # (Auto) 0.6 L, [place] # (Auto) 0.7, Eos # (Auto) 0.2, Baso # (Auto) 0.0 01/26/21 13:20: Sodium 134 L, Potassium 4.4, Chloride 100, Carbon Dioxide 28, Anion Gap 10.4, BUN 12, Creatinine 0.70, Estimated Creat Clear 92, Estimated GFR 114, Est GFR ( Amer) 138, Glucose 272 H, Calcium 8.2 L, Total Bilirubin 0.3, AST 23, ALT 18, Alkaline Phosphatase 149 H, C-Reactive Protein 206.3 H, Total Protein 6.5, Albumin 3.1 L, Globulin 3.4 H, Albumin/Globulin Ratio 0.9 L 01/26/21 13:20: ESR > 140 H 01/26/21 13:20: Lactate 1.1 01/26/21 15:37: POC Glucose 288 H Result diagrams: 01/26/21 13:20 01/26/21 13:20 Orders (Tests/Meds): ED MEDICATIONS Discontinued Medications Generic Name Dose Route Start Last Admin Trade Name Freq PRN Reason Stop Dose Admin Sodium Chloride 1,000 mls @ 250 mls/hr 01/26/21 12:45 01/26/21 13:35 Sod Chlor 0.9% 1000ml Bag IV 02/25/21 12:44 250 mls/hr .Q4H ILEANA Administration ORDERS Category Date Time Status Type and Screen Stat BBK 01/26/21 15:41 Ordered Blood Culture Stat Micro 01/26/21 12:16 Received - CT Data CT Scan: Other Time Received: 14:[address] Reviewed: Yes: I have reviewed the patient's CT results, I have viewed the radiologist's interpretation Findings Narrative: 1. Diffuse subcutaneous edema and subcutaneous fluid noted throughout the tib fib and ankle and midfoot status post transmetatarsal amputation at the mid metatarsal region. Gas density noted at the amputation site which may be postsurgical. There is a small amount of gas along the anterior aspect of the distal tibia and in the right extensor digitorum longus muscle. These could be postsurgical. Gas-forming infection is not excluded as they are not in direct apposition to the surgical site. 2. There is some asymmetric soft tissue density along the medial aspect of the amputation stump which could be due to asymmetric edema/fluid or hemorrhage. Small abscess is not excluded however, this area does not appear to be localized. This area measures approximately 3 by 1.2 cm. This is along the anterior aspect of the surgical drain. 3. No bony erosive proce
--- NOTE | 2021-01-26 12:30 | PC.NURSE ---
pt to CT
[2021-01-26 13:38] LABS: Basophils % 0.4 % (0.1-2.0); Eosinophils # 0.2 K/mm3 (0.0-0.4); Eosinophils % 1.6 % (0.1-12.0); Hematocrit 26.4 % (42.0-52.0); Hemoglobin 8.3 g/dL (14.1-18.0); Lymphocytes # 0.6 K/mm3 (0.7-4.5); Lymphocytes % 6.9 % (10-50); Mean Corpuscular HGB Conc 31.6 g/dL (31.8-35.4); Mean Corpuscular Hemoglobin 26.3 pg (27.0-31.2); Mean Corpuscular Volume 83.5 fl (80-94); Mean Platelet Volume 8.4 fl (7.4-10.4); Monocytes # 0.7 K/mm3 (0.1-1.0); Monocytes % 7.1 % (1.7-9.3); Neutrophils # 7.8 K/mm3 (1.8-7.8); Neutrophils % 84.1 % (37.0-80.0); Platelet Count 247 K/mm3 (142-424); Red Blood Count 3.16 M/mm3 (4.60-6.20); Red Cell Distribution Width 18.2 % (11.5-17.5); White Blood Count 9.3 K/mm3 (4.8-10.8)
[2021-01-26 13:39] LABS: Chloride 100 mmol/L (98-107)
[2021-01-26 13:40] LABS: Potassium 4.4 mmoL/L (3.5-5.1); Sodium 134 mmol/L (136-145)
[2021-01-26 13:42] LABS: Alanine Aminotransferase 18 U/L (12-78); Alkaline Phosphatase 149 U/L (38-126); Anion Gap 10.4 mEq/L (5-15); Aspartate Amino Transferase 23 U/L (17-59); Bilirubin,Total 0.3 mg/dl (0.2-1.3); Blood Urea Nitrogen 12 mg/dl (9-20); Carbon Dioxide 28 mmol/L (22.0-30.0); Creatinine Clearance Estimated 92 mL/min (50-200); Estimated Glomerular Filt Rate 114 ml/min (>60); GFR (African American) 138 ML/MIN (>60)
[2021-01-26 13:43] LABS: Albumin Level 3.1 g/dl (3.5-5.0); Albumin/Globulin Ratio 0.9 (1.1-1.8); Calcium 8.2 mg/dl (8.4-10.2); Globulin 3.4 g/dL (1.3-3.2); Glucose 272 mg/dl (74-100); Lactic Acid 1.1 mmol/L (0.7-2.1); Total Protein,Serum 6.5 g/dl (6.3-8.2)
[2021-01-26 13:48] LABS: C-Reactive Protein 206.3 mg/L (0-4)
[2021-01-26 14:17] LABS: Erythrocyte Sedimentation Rate > 140 mm/hr (0-20)
[2021-01-26 15:44] LABS: POC Glucose,Bedside 288 (70-110)
--- NOTE | 2021-01-26 15:48 | PC.NURSE ---
CONSTANTINE MACHUCA spoke with Dr. Smith at this time, he is agreeable to admit pt.
--- NOTE | 2021-01-26 15:52 | PC.NURSE ---
notified warehouse receiving supervisor of admission
--- NOTE | 2021-01-26 15:55 | PC.NURSE ---
notified warehouse distribution associate I was placing a standing protocol order for covid swab for admission of pt.
--- NOTE | 2021-01-26 16:27 | HMH.ORTHOCON ---
*Admission Date: 01/26/21 *Reason for consult:: S/P I&D Right TMA, cellulitis *History of present illness: Patient presented today to the office today 5 days post op from Right [facility] and after having his infusion of daptomycin and Levaquin earlier today. Patient told infusion that he was not feeling well and was directed to come down to podiatry to be seen. Patient was complaining of increasing pain and swelling in the right lower extremity. Patient stated just did not feel well stated he felt like he was going to pass out. Patient's glucose in the office was 288 and blood pressure was elevated patient could not remember for sure if he had taken his medication this morning. Patient did present with new areas to the right foot. Patient was just seen in the office on Sunday for his first postop visit from right [facility] on 01/21/2021. Patient's foot now presented with blisters to the right lateral dorsal foot, right medial proximal and distal areas, to plantar blisters and some areas also noted to his calf. The leg is edematous and feels very taut and warm to touch. Edema and tightness will extend some of the thigh and into the medial groin area the erythema is mainly to the foot and starting to extend up the tibia. There is sutures and smith to the incision site with lateral dehiscence known with some clear drainage coming from the amp site. The ERNA drain is intact, with less than 10 cc of bloody drainage in the bulb. The sites were cleaned with Betadine and redressed with Betadine to the TMA incision site and Xeroform and Betadine to the posterior Achilles lengthening site dressed with Kerlix and Tian wrap. We then proceeded to transfer the patient to the ER to be evaluated. The patient had labs and CT scan of the right foot while in the ER today, Findings: 1. Diffuse subcutaneous edema and subcutaneous fluid noted throughout the tib fib and ankle and midfoot status post transmetatarsal amputation at the mid metatarsal region. Gas density noted at the amputation site which may be postsurgical. There is a small amount of gas along the anterior aspect of the distal tibia and in the right extensor digitorum longus muscle. These could be postsurgical. Gas-forming infection is not excluded as they are not in direct apposition to the surgical site.2. There is some asymmetric soft tissue density along the medial aspect of the amputation stump which could be due to asymmetric edema/fluid or hemorrhage. Small abscess is not excluded however, this area does not appear to be localized. This area measures approximately 3 by 1.2 cm. This is along the anterior aspect of the surgical drain. 3. No bony erosive process apparent that would indicate acute osteomyelitis. 4. Well-defined tear of the Achilles tendon which may be iatrogenic Dr. Croft was notified of the findings and the decision was made to consent the patient for incision and drainage of nonviable soft tissue and bone, bone biopsies to be done today. The written consent was obtained and the procedure was explained with risks and benefits to the patient prior to surgery. Patient will be admitted after the surgery for medical management per Dr. Smith who is on-call for Dr. Pandya. [facility] History I have reviewed the patient's past medical history: Yes Medical History: Reports:: Asthma, Atherosclerotic Heart Disease, Atrial Fibrillation, Cancer, Congestive Heart Failure, Coronary Artery Disease, Deep Vein Thrombosis, Diabetes Mellitus Type 2, Heart Murmur, Hyperlipidemia, Hypertension, MRSA, Myocardial Infarction, Palpitations, Peripheral Artery Disease, Peripheral Vascular Disease, Pulmonary Embolism, Ulcer Denies:: Diabetes Mellitus Type 1, Internal Pacemaker, Seizures *Have you ever received a pneumonia vaccine?: No *Have you received a flu vaccine this season?: Yes Other Medical History: Reports: Anemia, Arthritis, Cataracts, Chemotherapy, Hoarseness, Hormone Therapy, Hypothyroidism, Sinus Problems, Thyroid Disease, Othe
--- NOTE | 2021-01-26 18:21 | XR_ITS ---
PROCEDURE INFORMATION: Exam: XR Right Ankle Exam date and time: 01/26/2021 6:21 PM Age: 60 years old Clinical indication: Screening exam; Post op after right ankle surgery. ; Prior surgery; Surgery date: Post-operative (0-2 days); Surgery type: Left ankle surgery. ; Additional info: Post op gas TECHNIQUE: Imaging protocol: XR Right ankle. Views: 1 or 2 views. COMPARISON: CT FOOT RT WO CON 01/26/2021 12:42 PM FINDINGS: Bones/joints: No acute fracture or dislocation. Ankle mortise is intact. Prior amputation at the level of the mid foot. Soft tissues: Considerable soft tissue swelling seen at the distal stump and at the plantar aspect of the ankle. Small bubbles of soft tissue air are seen in the stump. Multiple skin smith are noted. Vasculature: Considerable vascular calcification. IMPRESSION: 1. Soft tissue swelling and soft tissue air. 2. Prior mid foot amputation. 3. Calcaneal spur.
[2021-01-26 18:22] LABS: Coronavirus 19, PCR Not Detected (NotDetected); Influenza A, PCR Not Detected (NotDetected); Influenza B, PCR Not Detected (NotDetected)
--- NOTE | 2021-01-26 18:25 | HMH.OPNOTE ---
Date of procedure: 01/26/21 Pre-op Diagnosis:: 1. Right foot s/p TMA 01/21/21 2. Right ankle gas gangrene 3. Right PAD 4. DM right foot ulcer 5. Non-compliance Post-op Diagnosis:: Same Procedure performed:: 1. Right foot suture, staple, ERNA drain removal 2. Right tarsometatarsal amputation (lisfranc disarticulation) 3. Right foot, ankle incision and drainage 4. Right wound/ulcer debridement x2 5. Right application of ERNA drain Surgeon:: June Croft DPM ASSOCIATE BUSINESS ANALYST:: Johnathan Urbina Anesthesia: MAC, local (20cc 0.5% marcaine plain) Estimated blood loss (mL): 40 Clinical Note:: Patient had a transmetatarsal amputation 01/21/2021. He followed up postoperatively outpatient in the office 01/24/2021 with out complication. He has been on a PICC line with IV daptomycin and Levaquin since 01/21/2021. At infusion today, patient complained of worsening leg swelling and pain as well as hip pain. He was sent to the ER. Infection labs elevated, CT showed gas gangrene. We discussed surgical intervention for incision and drainage. Patient also understands that they could have wound healing complications including delayed healing and infection. We discussed that if the wound does not heal, it is possible that they may need a more proximal amputation and could result in further loss of digits, loss of partial foot or loss of leg. We discussed the risks and benefits in great detail. Other surgical risks include: prolonged pain and swelling, further infection requiring oral or IV antibiotics, delay in healing of soft tissue or bone, nerve or blood vessel damage, CRPS/RSD, DVT, anesthesia complications, and even . All questions answered. Patient verbalized understanding. Consent obtained. PCP Dr. Pandya to admit per ER doctor. Operative findings:: Some dishwater drainage noted from the right lateral fifth metatarsal area. Fluid around the peroneal brevis tendon. Fluid tracking up the extensor tendons. The amputation site was dusky and the tissue over the metatarsals was sloughy, muscle was shredded and necrotic. Ulcer noted to the dorsal medial foot and medial calf. Post debridement sharply excisionally with a 15 blade, forceps and curettes the ulcers were: Medial foot was 100% granular and measured 0.8 x 0.6 x 0.1 cm through skin into/involving subcutaneous tissue. The medial calf ulcer post debridement was 50% granular, 50% fibrotic and extended through skin into/involving subcutaneous tissue, measuring 1.2 x 1 x 0.3 cm. Gas gangrene noted to the amputation site and anterior ankle. Concern for worsening infection while patient is on PICC and IV antibiotics. High risk for BKA. Cardiology consult for RLE run-off stent evaluation. Operative note:: On this date and time the patient was deemed an appropriate surgical candidate. With informed consent time patient was transferred from the preoperative holding area to the operating theater placed on table in a normal supine position. MAC anesthesia. Right lower extremities prepped and draped in normal sterile fashion. No tourniquet utilized. Right foot suture removal, staple removal, drain removal: Prior to the start of the procedure the sutures smith and drain was removed from the transmetatarsal amputation site. Right ankle incision and drainage: 20 cc of half percent Marcaine plain were infiltrated in regional ankle block. Attention was directed to the right anterior ankle where a longitudinal incision was made over the extensor tendons. Dissection down to the level of the bone. Some dishwater serosanguineous drainage was noted. Wound culture taken. 1 L of bacitracin irrigation pulse lavage was used to flush the area. Wound reexplored and no new signs of infection noted. Deep tissue loosely reapproximated over the bone with 0 Vicryl. Skin was loosely reapproximated with 0 Prolene. There was gapping at the suture site intentionally left for drainage. Right foot incision and drainage: Similarly incision was made over the
--- NOTE | 2021-01-26 19:52 | HMH.ACPN2 ---
Internal Medicine - PN: Subj *Date: 01/26/21 *Time: 19:52 Interval history: 60 y.o. diabetic five days post-op from right TMA found today to have dehiscence of the wound and evidence of infection. Admitted for excision of nonviable tissue and bone. Seen post-op in ICU tonight. Stable. Taking p.o. Meds reviewed. Routine meds ordered. Some questionable comments from pharmacy regarding BP meds and possible intolerance to them. Such is NOT recorded in office notes: Takes Amlodipine 2.5mg qPM and Bystolic 5mg p.o. qPM. Lenvatinib 20mg also ordered. Exam Vital signs and Labs for Last 24 Hours: Temp Pulse Resp BP Pulse Ox 98.2 F 92 H 18 160/75 H 99 01/26/21 15:35 01/26/21 15:35 01/26/21 18:40 01/26/21 15:35 01/26/21 12:07 Laboratory Results - last 24 hr 01/26/21 13:20: WBC 9.3, RBC 3.16 L, Hgb 8.3 L, Hct 26.4 L, MCV 83.5, MCH 26.3 L, MCHC 31.6 L, RDW 18.2 H, Plt Count 247, MPV 8.4, Neut % (Auto) 84.1 H, Lymph % (Auto) 6.9 L, [place] % (Auto) 7.1, Eos % (Auto) 1.6, Baso % (Auto) 0.4, Neut # (Auto) 7.8, Lymph # (Auto) 0.6 L, [place] # (Auto) 0.7, Eos # (Auto) 0.2, Baso # (Auto) 0.0 01/26/21 13:20: Sodium 134 L, Potassium 4.4, Chloride 100, Carbon Dioxide 28, Anion Gap 10.4, BUN 12, Creatinine 0.70, Estimated Creat Clear 92, Estimated GFR 114, Est GFR ( Amer) 138, Glucose 272 H, Calcium 8.2 L, Total Bilirubin 0.3, AST 23, ALT 18, Alkaline Phosphatase 149 H, C-Reactive Protein 206.3 H, Total Protein 6.5, Albumin 3.1 L, Globulin 3.4 H, Albumin/Globulin Ratio 0.9 L 01/26/21 13:20: ESR > 140 H 01/26/21 13:20: Lactate 1.1 01/26/21 15:37: POC Glucose 288 H 01/26/21 18:07: Blood Type O Positive, Antibody Screen Negative 01/26/21 18:09: SARS-CoV-2 (PCR) Not detected, Influenza A Untype (PCR) Not detected, Influenza Type B (PCR) Not detected I & O for Last 24 hours: Intake & Output 01/24/21 01/25/21 01/26/21 01/27/21 11:59 11:59 11:59 11:59 Weight 415 lb - Constitutional no acute distress (eating supper, sitting up in bed.) - *Routine HEENT Exam Eye: Present: PERRL ENT: Present: mucous membranes moist - *Routine Respiratory Exam Present: CTA bilaterally - *Routine Cardiovascular Exam Present: RRR - *Routine Abdominal Exam Present: soft, obese. Absent: tenderness - *Routine Extremities Exam Present: edema (right foot with dressing. Left BKA.) - *Routine Neurological Exam Present: alert, oriented X3 Assessment and Plan (1) Dehiscence of incision Status: Acute Qualifiers: Encounter type: initial encounter Qualified Code(s): T81.31XA - Disruption of external operation (surgical) wound, not elsewhere classified, initial encounter Category: Medical Code(s): T81.31XA - Disruption of external operation (surgical) wound, not elsewhere classified, initial encounter (2) Wound cellulitis Status: Acute Category: Medical Code(s): L03.90 - Cellulitis, unspecified (3) Cellulitis Status: Acute Qualifiers: Site of cellulitis: neck Qualified Code(s): L03.221 - Cellulitis of neck Category: Medical Code(s): L03.90 - Cellulitis, unspecified (4) Type 2 diabetes mellitus with diabetic neuropathy, with long-term current use of insulin Status: Acute Category: Medical Code(s): E11.40 - Type 2 diabetes mellitus with diabetic neuropathy, unspecified; Z79.4 - skilled nursing (current) use of insulin (5) Status post foot surgery Status: Acute Category: Surgical Code(s): Z98.890 - Other specified postprocedural states (6) History of cancer chemotherapy Status: Acute Category: Medical Code(s): Z92.21 - Personal history of antineoplastic chemotherapy (7) Non-compliance Status: Acute Category: Medical Code(s): Z91.19 - Patient's noncompliance with other medical treatment and regimen (8) Postoperative edema Status: Acute Category: Medical Code(s): R60.9 - Edema, unspecified (9) Other chronic osteomyelitis, right ankle and foot Status: Acute Categ
[2021-01-27] VITALS (8 sets, daily range): BP systolic 126–163; BP diastolic 44–93; PULSE 102–130; RESP 12–22; TEMP 36.8–37.9; O2SAT 91–97; BMI 51.5
[2021-01-27 04:59] LABS: Chloride 101 mmol/L (98-107)
[2021-01-27 05:00] LABS: Potassium 4.5 mmoL/L (3.5-5.1); Sodium 134 mmol/L (136-145)
[2021-01-27 05:03] LABS: Anion Gap 8.5 mEq/L (5-15); Basophils # 0.1 K/mm3 (0-0.2); Basophils % 0.5 % (0.1-2.0); Blood Urea Nitrogen 12 mg/dl (9-20); Calcium 7.8 mg/dl (8.4-10.2); Carbon Dioxide 29 mmol/L (22.0-30.0); Creatinine Clearance Estimated 92 mL/min (50-200); Eosinophils # 0.3 K/mm3 (0.0-0.4); Eosinophils % 3.1 % (0.1-12.0); Estimated Glomerular Filt Rate 98 ml/min (>60); GFR (African American) 119 ML/MIN (>60); Glucose 234 mg/dl (74-100); Lymphocytes # 0.7 K/mm3 (0.7-4.5); Lymphocytes % 7.9 % (10-50); Mean Corpuscular HGB Conc 31.2 g/dL (31.8-35.4); Mean Corpuscular Volume 83.3 fl (80-94); Mean Platelet Volume 7.9 fl (7.4-10.4); Monocytes # 0.7 K/mm3 (0.1-1.0); Monocytes % 7.3 % (1.7-9.3); Neutrophils # 7.5 K/mm3 (1.8-7.8); Neutrophils % 81.2 % (37.0-80.0); Platelet Count 267 K/mm3 (142-424); Red Blood Count 2.84 M/mm3 (4.60-6.20); Red Cell Distribution Width 18.4 % (11.5-17.5); White Blood Count 9.2 K/mm3 (4.8-10.8)
[2021-01-27 05:22] LABS: Hematocrit 23.7 % (42.0-52.0); Hemoglobin 7.4 g/dL (14.1-18.0)
--- NOTE | 2021-01-27 05:27 | PC.NURSE ---
Carmel from lab called with a critical H&H on patient & name verified x2 [email or web address] and notified at 0730
--- NOTE | 2021-01-27 05:30 | PC.NURSE ---
Patient is alert and oriented x4. Patient has dozed on and off through the night. Patient has had several complaints of muscle spasms throughout the night. Patient's dsg remains clean, dry, and intact. ERNA drain has SS noted. Patient's extremity has been elevated & ice packs applied. Patient's PICC dsg is clean, dry and intact with NS at 250ml/hr per orders. He has had adequate urine output this shift. Patient's vital signs are stable, call light within reach, will continue to monitor.
--- NOTE | 2021-01-27 07:58 | P.CONPHA_ITS ---
[facility] Pharmacy VTE Monitoring - Patient Demographics Admission date: 01/27/21 Report Date: 01/27/21 Time: 07:59 Allergies/Adverse Reactions: Patient Allergies cefepime Allergy (Severe, Verified 01/24/21 10:23) BLEEDING SORES pantoprazole [From Protonix] Allergy (Severe, Verified 01/24/21 10:23) Diarrhea piperacillin [From ZOSYN] Allergy (Severe, Verified 01/24/21 10:23) RENAL FAILURE tazobactam [From ZOSYN] Allergy (Severe, Verified 01/24/21 10:23) RENAL FAILURE vancomycin [VANCOMYCIN] Allergy (Severe, Verified 01/24/21 10:23) RENAL FAILURE ciprofloxacin [From CIPRO] Allergy (Intermediate, Verified 01/24/21 10:23) JOINT PAIN doxazosin Allergy (Intermediate, Verified 01/24/21 10:23) LOW BP/DEHYDRATION exenatide [From BYDUREON] Allergy (Intermediate, Verified 01/26/21 22:10) Unknown allergy reaction hydralazine [HYDRALAZINE] Allergy (Intermediate, Verified 01/24/21 10:23) LOW BP/DEHYDRATION nifedipine Allergy (Intermediate, Verified 01/24/21 10:23) LOW BP/DEHYDRATION pioglitazone [From ACTOS] Allergy (Intermediate, Verified 01/24/21 10:23) CHEST CONGESTION rosiglitazone [From AVANDIA] Allergy (Intermediate, Verified 01/24/21 10:23) CHEST CONGESTION sulfamethoxazole [From BACTRIM] Allergy (Intermediate, Verified 01/24/21 10:23) JOINT SWELLING trimethoprim [From BACTRIM] Allergy (Intermediate, Verified 01/24/21 10:23) JOINT SWELLING sucralfate [From CARAFATE] Allergy (Unknown, Verified 01/24/21 10:23) Unknown allergy reaction carvedilol Adverse Reaction (Verified 01/24/21 10:23) Difficulty Breathing hydromorphone [From Dilaudid] Adverse Reaction (Verified 01/24/21 10:23) Vomiting Height: 1.91 m Weight: 188.241 kg Patient Problems: Current Active Problems Wound cellulitis (Acute) Osteomyelitis (Acute) Abscess (Acute) History of cancer chemotherapy (Acute) Non-compliance (Acute) Postoperative edema (Acute) Other chronic osteomyelitis, right ankle and foot (Acute) Klebsiella infection (Acute) PVD (peripheral vascular disease) (Acute) Type 2 diabetes mellitus with diabetic neuropathy, with long-term current use of insulin (Acute) Osteomyelitis of fifth toe of right foot (Acute) Diabetic ulcer of right midfoot associated with type 2 diabetes mellitus, with fat layer exposed (Acute) Charcot foot due to diabetes mellitus (Acute) BMI 45.0-49.9, adult (Acute) Status post incision and drainage (Acute) Dehiscence of incision (Acute) Status post foot surgery (Acute) Type 2 diabetes mellitus (Chronic) Weakness (Acute) History of left below knee amputation (Chronic) Cellulitis (Acute) Near syncope (Acute) - VTE Risk Labs: VTE Related Lab Results Hgb 7.4 g/dL (14.1-18.0) L* 01/27/21 04:25 Hct 23.7 % (42.0-52.0) L* 01/27/21 04:25 Plt Count 267 K/mm3 (142-424) 01/27/21 04:25 BUN 12 mg/dl (9-20) 01/27/21 04:25 Creatinine 0.80 mg/dl (0.66-1.25) 01/27/21 04:25 Estimated Creat Clear 92 mL/min (50-200) 01/27/21 04:25 Was VTE Risk Assessment Performed: Yes VTE Score: 10 VTE Risk Level: Moderate Risk Clinical Trial Participant: No - Prophylaxis VTE Prophylaxis Ordered?: Yes Types of VTE Prophylaxis: Pharmacological (XARELTO)
--- NOTE | 2021-01-27 08:18 | HMH.ORTHPN ---
Subjective Date: 01/27/21 <Daina Antonio - 01/27/21 08:41> Time: 08:18 <Daina Antonio - 01/27/21 08:41> Principal diagnosis: R Foot I&D, s/p TMA 01/21/21 <Daina Antonio - 01/27/21 08:41> Interval history: Patient resting in bed this morning states he had a really rough night was having a lot of muscle spasms in the Achilles. The leg does appear to be much better this morning the swelling and erythema has reduced since I saw him in the office yesterday. Patient requesting for Flexeril to be reordered states that is the only thing that seems to help with the spasms, DENISE Hays was rounding this morning with us as well and discussed this with her she is going to reorder this for the patient. Patient is n.p.o. for cardiology consult this morning they will determine if he will need any runoffs or other cardiac interventions this morning. We discussed with the nurse that if cardiology clears him then the patient may have an a tray. We will proceed with Betadine soaked 4 x 4 dressing changes this morning, Alberto drain is intact. <Daina Antonio - 01/27/21 08:41> PN: Obj Ex Vital signs: Temp Pulse Resp BP Pulse Ox 100.2 F H 120 H 16 161/66 H 93 L 01/27/21 15:39 01/27/21 16:27 01/27/21 15:39 01/27/21 15:39 01/27/21 15:39 <June Croft - 01/27/21 19:10> Temp Pulse Resp BP Pulse Ox 99.4 F 114 H 17 126/51 L 97 01/27/21 04:00 01/27/21 04:00 01/27/21 04:00 01/27/21 04:00 01/27/21 04:00 <Daina Antonio - 01/27/21 08:41> - Constitutional no acute distress <Daina Antonio - 01/27/21 08:41> - Routine HEENT Exam Head: Present: normocephalic <Daina Antonio 01/27/21 08:41> Eye: Present: EOMI <Daina Antonio 01/27/21 08:41> ENT: Present: mucous membranes moist <Daina Antonio 01/27/21 08:41> - Routine Neck Exam Present: supple, trachea midline <Daina Antonio 01/27/21 08:41> - Routine Respiratory Exam Absent: respiratory distress <Diana Antonio 01/27/21 08:41> - Routine Cardiovascular Exam Present: RRR <Daina Antonio 01/27/21 08:41> - Routine Abdominal Exam Present: soft, obese <Daina Antonio 01/27/21 08:41> - Routine Extremities Exam Present: amputation (s/p R TMA 01/21/21, Hx L BKA). Absent: calf tenderness <Daina Antonio 01/27/21 08:41> - Detailed Lower Extremity Exam Leg image: 1 - Small ulcer to his Right medial calf, no drainage and 100% granular wound bed. Betadine dressing applied. <Daina Antonio 01/27/21 08:41> Top foot image: 1 - Right TMA, sutures and black, ALBERTO drain intact. No drainage noted from suture line. Erythema and edema improved from yesterday <Daina Antonio 01/27/21 08:41> Comments: All of the wounds to the right foot was cleaned with Betadine this am, No debridement done. ALBERTO drain intact minimal bloody drainage noted in the bulb. No purulence or signs of infection.Black and sutures are in place. Betadine dry sterile dressing, kerlix, tennille wrap was then applied to the right foot. <Daina Antonio 01/27/21 08:41> - Routine Back/Spine/Pelvis Exam Back/Spine: Present: full ROM <Daina Antonio 01/27/21 08:41> - Routine Skin Exam Present: erythema (R TMA,ulcers to foot and Medial calf ), warm, wounds <Daina Antonio 01/27/21 08:41> - Routine Neurological Exam Present: alert, oriented X3, normal tone, vision grossly intact, hearing grossly intact, normal speech <Daina Antonio 01/27/21 08:41> - Routine Psychiatric Exam Present: normal affect, cooperative <Daina Antonio 01/27/21 08:41> Progress Note: A&P (1) Dehiscence of incision Status: Acute (2) Wound cellulitis Status: Acute (3) Cellulitis Status: Acute (4) Type 2 diabetes mellitus with diabetic neuropathy, with long-term current use of
--- NOTE | 2021-01-27 08:43 | HMH.PHAINT ---
verified home medication list using list from clinic pharmacy
[2021-01-27 08:47] LABS: C-Reactive Protein 182.5 mg/L (0-4)
[2021-01-27 08:55] LABS: Erythrocyte Sedimentation Rate > 140 mm/hr (0-20)
--- NOTE | 2021-01-27 08:55 | HMH.CNCARD ---
History of Present Illness Consult date: 01/27/21 Requesting physician: June Croft Chief complaint: Abnormal ABIs diffuse vascular calcification History of present illness: 60-year-old male admitted to facility due to pain of the right foot. On 01/21/2021 patient underwent surgery for amputation of toes on the right foot. Patient states increased pain in the last few days with moderate amount of bleeding. Patient does have left below the knee amputation due to osteomyelitis and uncontrolled diabetes. Patient is noted to have an abnormal LINNETTE in which the right lower extremity was noncompressible. Audible pulses are detected with Doppler on right lower extremity. Plan was for patient to undergo right lower extremity runoff at [facility] in the next few weeks, but due to amputation of toes on the right foot and increased pain with bleeding, this has been delayed. This is being managed by podiatry and PCP. Patient denies chest pain, tightness or pressure. Patient does complain of shortness of breath with exertion. Patient states this is not new due to him being in a wheelchair and overweight. Patient denies dizziness or palpitations. Patient states he does have metastatic thyroid cancer and is currently receiving chemo treatments at [facility]. Treatments have been delayed due to his right lower extremity toe amputations. Patient states his chemotherapy treatments will resume once his right foot heals. Patient is noted to have diabetic nonhealing ulcers on the right lower extremity. Patient is a poorly controlled diabetic. Patient does have history of coronary artery disease. Last heart catheterization was in 12/2019 which revealed stenting to the LAD. Last echocardiogram was also at that time. EF revealed 55% with no regional wall abnormality. Mild MR and TR noted. Patient does have history of hypertension and hyperlipidemia. Patient does have history of congestive heart failure. History of PAD and PVD. Patient has history of DVT and PE. Patient is currently on Xarelto 20 mg a day. This is managed through [facility]. panel monitor reveals sinus rhythm with no ectopy. Blood pressure is stable. Due to postsurgical bleeding with hemoglobin at 7 and low-grade fever, we are unable to do right lower extremity runoff at this time. PCP is made aware of hemoglobin is low. This will be managed by PCP. Once patient is hemodynamically stable, we can reconsider lower extremity runoff. LINNETTE Conclusion RT LINNETTE=NON COMPRESSIBLE LT LINNETTE=Not obtained due to BKA RT TBI=1.21 LT TBI=Not obtained due to BKA Audible pulses detected with doppler on RLE Evident medial calcinoisis with non compessible vessels throughout RLE. Lower extremity CT FINDINGS: Right tib fib: No fracture or dislocation. No lytic or blastic change. There is diffuse vascular calcification. Numerous small calcific densities are present within the soft tissues in the pretibial region and may be due to numerous phleboliths. There is diffuse subcutaneous edema/fluid about the soft tissues of the knee and tib fib. No localized fluid collection is identified but would be extremely difficult to see due to lack of IV contrast. There is a small amount of subcutaneous gas noted along the distal tibia anteriorly there is also a minimal amount of gas density noted anterior to the mid shaft of the fibula within the extensor digitorum longus muscle. Image 86 series 3. No evidence of osteomyelitis. No fracture or dislocation. There is complete disruption of the Achilles tendon 2.7 cm cephalad to the calcaneus and may be iatrogenic in nature. The tendon fragments are by 4 cm. Right foot: There has been a transmetatarsal amputation at the proximal aspect of the metatarsals. The there is a postsurgical drain the at the amputation site. The bony margins are sharp at the amputation site with
--- NOTE | 2021-01-27 08:58 | CA_ITS ---
APPROVED REPORT EXAM: Comprehensive 2D, Doppler, and color-flow Echocardiogram Director Learning Services: IRINA Antonio, RVS Ht: 6 ft 3 in Wt: 415lbs BSA: 2.99 BP: 146/44 mmHg Indications: PAF, LAE, Diastolic dysfunction, COPD, SOA, Chemotherapy-Lung CA Echo Enhancing Agent Comments: Technically limited exam due to Large body habitus with inability to be positioned. 2D Dimensions LVDs 3.16 cm LA Volume 132.10 mL Aortic Root 3.35 cm LA Volume Index 44.726968 mL/m2 (M/F) 16-34 Left Atrium 5.01 cm LVOT 2.16 cm (M/F) 1.5-2.5 M-Mode Dimensions RVDd 3.49 cm (0.9-2.6) LA Diam 5.30 cm (1.9-4.0) LVDd 4.57 cm (3.5-5.7) Ao Diam 3.36 cm (2.0-3.7) LVDs 3.00 cm (3.5-5.7) IVSd 1.34 cm (0.6-1.1) PWd 1.61 cm (0.6-1.1) EF (Teich) 63.50% EPSs 0.84 cm FS 34.40% EDV (Teich) 95.90 mL TAPSE 1.91 (<1.7) ESV (Teich) 35.00 mL LV Diastology MED E' 6.80 (< 7 cm/sec) MED A' 10.80 cm/s LAT E' 8.60 (<10 cm/sec) LAT A' 10.70 cm/s Aortic Valve LVOT Max 113.00 (70-110 cm/s) LVOT VTI 18.42 cm AoV Peak Leo. 286.00 (50-130 cm/s) AO Peak GR. 32.80 mmHg AO Mean GR. 16.10 (<5 mmHg) AO VTI 47.80 (18-25 cm) SOPHIE (VTI) 1.41 (2.5-4.5 cm2) Mitral Valve MV PHT 83.00 ms Pulmonary Valve PV Peak Velocity 99.00 (50-150 cm/s) Tricuspid Valve TR P. Velocity 161.00 cm/s Left Ventricle Left atrium is mildly enlarged, left ventricle is normal size, mild concentric left ventricular hypertrophy, visually estimated ejection fraction 55% with no regional wall motion abnormality, diastolic parameters are inconclusive. Right Ventricle Right atrium and right ventricle mildly enlarged with normal contractility. Aortic Valve Aortic valve is thickened and calcified with mean gradient across valve 18 mmHg, valve area is 1.4 cm??? represents mild aortic stenosis, there is no aortic insufficiency. Mitral Valve Mitral inflow velocity is mildly increased, mitral valve area is 2.6 cm By pressure half-time represents mild mitral stenosis, there is mild mitral regurgitation. Tricuspid Valve Tricuspid grossly normal, there is mild tricuspid regurgitation, tricuspid regurgitation jet velocity is inadequate for calculation of the right ventricular systolic pressure. Pulmonic Valve Pulmonic valve is poorly visualized. Great Vessels Aortic root is normal size. Pericardium No significant pericardial effusion noted. Conclusion 1. Biatrial enlargement, normal left ventricular size, mild concentric left ventricular hypertrophy, visually estimated ejection fraction 55% with no regional wall motion abnormality, diastolic parameters are inconclusive. 2. Thickened and calcified aortic valve with mild aortic stenosis, valve area is 1.4 cm???. There is no aortic insufficiency. 3. Thickened and calcified mitral valve with mild mitral stenosis, valve area is 2.6 cm???. There is mild mitral regurgitation. 4. Mild tricuspid regurgitation. 5. No significant pericardial effusion noted. Electronically signed by : Vito Patino, 01/27/2021 15:31:31
--- NOTE | 2021-01-27 09:58 | P.CONPHA_ITS ---
- Pharmacy Consult Date: 01/27/21 Time: 09:58 Referring provider: DR. ALFREDO Reason for Consult:: GENTAMICIN DOSING Allergies and ADEs:: Allergies Allergy/AdvReac Type Severity Reaction Status Date / Time cefepime Allergy Severe BLEEDING Verified 01/24/21 10:23 SORES pantoprazole [From Protonix] Allergy Severe Diarrhea Verified 01/24/21 10:23 piperacillin [From ZOSYN] Allergy Severe RENAL Verified 01/24/21 10:23 FAILURE tazobactam [From ZOSYN] Allergy Severe RENAL Verified 01/24/21 10:23 FAILURE vancomycin [VANCOMYCIN] Allergy Severe RENAL Verified 01/24/21 10:23 FAILURE ciprofloxacin [From CIPRO] Allergy Intermediate JOINT PAIN Verified 01/24/21 10:23 doxazosin Allergy Intermediate LOW Verified 01/24/21 10:23 BP/DEHYDRATION exenatide [From BYDUREON] Allergy Intermediate Unknown Verified 01/26/21 22:10 allergy reaction hydralazine [HYDRALAZINE] Allergy Intermediate LOW Verified 01/24/21 10:23 BP/DEHYDRATION nifedipine Allergy Intermediate LOW Verified 01/24/21 10:23 BP/DEHYDRATION pioglitazone [From ACTOS] Allergy Intermediate CHEST Verified 01/24/21 10:23 CONGESTION rosiglitazone [From AVANDIA] Allergy Intermediate CHEST Verified 01/24/21 10:23 CONGESTION sulfamethoxazole Allergy Intermediate JOINT Verified 01/24/21 10:23 [From BACTRIM] SWELLING trimethoprim [From BACTRIM] Allergy Intermediate JOINT Verified 01/24/21 10:23 SWELLING sucralfate [From CARAFATE] Allergy Unknown Unknown Verified 01/24/21 10:23 allergy reaction carvedilol AdvReac Difficulty Verified 01/24/21 10:23 Breathing hydromorphone [From Dilaudid] AdvReac Vomiting Verified 01/24/21 10:23 Home Medications:: Home Medications Medication Instructions Recorded Confirmed Type Calcium Carbonate [Calcium] 2,000 mg PO BID 07/01/17 01/26/21 History Insulin Lispro [HumaLOG 100 30 units SQ DIRECTED 07/01/17 01/26/21 History units/mL 3mL vial (SSI)] diphenhydrAMINE HCL [Benadryl 25mg 50 mg PO HSP PRN 07/01/17 01/26/21 History Capsule] hydroCHLOROthiazide [HCTZ 25mg 25 mg PO DAILY 07/01/17 01/26/21 History tab] Fluticasone Propionate [Flonase 2 spray NS DAILY 10/16/18 01/26/21 History 50mcg nasal spray 16gm] Trazodone HCl 100 mg PO HS 10/17/19 01/26/21 History Potassium Chloride 10 meq PO BID 01/08/20 01/26/21 History Nebivolol HCl [Bystolic] 20 mg PO HS 01/09/20 01/26/21 History cyclobenzaprine 5 mg tablet 5 mg PO BIDP PRN tab 01/20/20 01/27/21 History Acetaminophen [Tylenol Arthritis] 650 mg PO BID 06/01/20 01/26/21 History Amlodipine Besylate 2.5 mg PO HS 06/01/20 01/26/21 History Atorvastatin Calcium [Lipitor 20mg 20 mg PO HS 06/01/20 01/26/21 History Tab] Sennosides [Senna] 8.6 mg PO HS 06/01/20 01/26/21 History Furosemide [Lasix 20mg tablet] 20 mg PO DAILY 07/15/20 01/26/21 History Esomeprazole Magnesium [Nexium] 20 mg PO DAILY 10/08/20 01/26/21 History Gabapentin [Neurontin 600mg 600 mg PO BID 10/08/20 01/26/21 History tablet] Mometasone/Formoterol [Dulera 100 2 puff IH BID 10/08/20 01/26/21 History Mcg-5 Mcg Inhaler] lenvatinib 10 mg/day (10 mg x 1) 20 mg PO DAILY cap
--- NOTE | 2021-01-27 10:16 | SW/DCPLANNER ---
Addendum entered by [facility] 02/07/21 11:13: Dr Pandya/Dr Croft are fine with this patient discharging today. I have informed patients nurse (Louis) of plan and to remove wound vac prior to discharging. Addendum entered by [facility] 02/07/21 10:46: Pinky with [facility] has stated that she has received approval from patients insurance. I am waiting to hear back from Dr Pandya/Dr Croft regarding discharge today. COVID swab has been ordered prior to discharge for this patient. Pinky has also stated that wound VAC will need to be removed so they can place their own. Phone number for report is [phone] and accepting MD is Dr Tineo. I have updated patients regarding plan. I am waiting to hear back from MD regarding discharge today. Addendum entered by [facility] 02/07/21 08:55: Namita with [facility] has stated that prior auth has been started. Namita has stated that once she hears from insurance she will let me know. I will continue to update patient// Dr Pandya. Addendum entered by [facility] 02/04/21 11:59: Namita with [facility] stated that she will begin prior authorization for this patient. I will continue to follow up with Namita and patient/. Addendum entered by [facility] 02/04/21 11:45: Patient information has also been faxed to [facility]. Addendum entered by [facility] 02/04/21 10:13: [facility] information [facility] also [facility] and [facility]. At this time patient has been denied by: [facility] (out of network), [facility] (not accepting admissions), and [facility]. Facilities reviewing: [facility], [facility] and [facility]. Addendum entered by [facility] 02/03/21 15:10: Information has also been faxed to [facility]. Addendum entered by [facility] 02/03/21 14:34: [facility] has denied this patient. Patient information has now been faxed to [facility] and [facility]. Addendum entered by Aminah Ardmore 02/03/21 10:08: Sonia with [facility] is currently reviewing patient information. Addendum entered by Aminah Ardmore 02/03/21 07:45: Suzie with [facility] has stated they will not be able to accept this patient due to no beds available. I will continue to follow up with Sonia from [facility] along with patient and his . Sonia with [facility] may evaluate this patient on site today. Addendum entered by Aminah Ardmore 02/02/21 13:21: has expressed an interest in [facility]: patient has been there in the past. also stated that if [place] can NOT accept this patient then they are interested in [facility]. I will continue to follow up with this patient//facilities. Addendum entered by Aminah Ardmore 02/02/21 13:00: Currently waiting for to return to patients room to discuss placement ([facility]). Addendum entered by Aminah Ardmore 02/02/21 10:59: Dr Croft contacted me this morning after surgery stating that she had an extensive conversation with patients and stated that they are interested in placement at time of discharge. I will follow up with patient/ once patient arrives to med/surg from surgery. At this time patient information has been faxed to Suzie at [facility]. Patient already has PICC line and per Dr Croft will require additional IV antibiotics at time of discharge. Discharge date is unknown at this time. Original Note: This patient currently has a PICC line and receives IV antibiotics as an outpatient at [facility]. I will continue to follow up with this patient until medically stable for discharge. Patient is not ready for discharge today.
--- NOTE | 2021-01-27 10:26 | HMH.HP ---
*Admission Date: 01/27/21 <Destiny Farah - 01/27/21 11:07> *Chief complaint: foot pain <Desitny Farah - 01/27/21 11:07> *History of present illness: Patient presented today to the office today 5 days post op from Right [facility] and after having his infusion of daptomycin and Levaquin earlier today. Patient told infusion that he was not feeling well and was directed to come down to podiatry to be seen. Patient was complaining of increasing pain and swelling in the right lower extremity. Patient stated just did not feel well stated he felt like he was going to pass out. Patient's glucose in the office was 288 and blood pressure was elevated patient could not remember for sure if he had taken his medication this morning. Patient did present with new areas to the right foot. Patient was just seen in the office on Sunday for his first postop visit from right [facility] on 01/21/2021. Patient's foot now presented with blisters to the right lateral dorsal foot, right medial proximal and distal areas, to plantar blisters and some areas also noted to his calf. The leg is edematous and feels very taut and warm to touch. Edema and tightness will extend some of the thigh and into the medial groin area the erythema is mainly to the foot and starting to extend up the tibia. There is sutures and smith to the incision site with lateral dehiscence known with some clear drainage coming from the amp site. The ERNA drain is intact, with less than 10 cc of bloody drainage in the bulb. The sites were cleaned with Betadine and redressed with Betadine to the TMA incision site and Xeroform and Betadine to the posterior Achilles lengthening site dressed with Kerlix and Tian wrap. We then proceeded to transfer the patient to the ER to be evaluated. The patient had labs and CT scan of the right foot while in the ER today, Findings: 1. Diffuse subcutaneous edema and subcutaneous fluid noted throughout the tib fib and ankle and midfoot status post transmetatarsal amputation at the mid metatarsal region. Gas density noted at the amputation site which may be postsurgical. There is a small amount of gas along the anterior aspect of the distal tibia and in the right extensor digitorum longus muscle. These could be postsurgical. Gas-forming infection is not excluded as they are not in direct apposition to the surgical site.2. There is some asymmetric soft tissue density along the medial aspect of the amputation stump which could be due to asymmetric edema/fluid or hemorrhage. Small abscess is not excluded however, this area does not appear to be localized. This area measures approximately 3 by 1.2 cm. This is along the anterior aspect of the surgical drain. 3. No bony erosive process apparent that would indicate acute osteomyelitis. 4. Well-defined tear of the Achilles tendon which may be iatrogenic Dr. Croft was notified of the findings and the decision was made to consent the patient for incision and drainage of nonviable soft tissue and bone, bone biopsies to be done today. The written consent was obtained and the procedure was explained with risks and benefits to the patient prior to surgery. Patient will be admitted after the surgery for medical management per Dr. Smith who is on-call for Dr. Pandya. (Above as per Daina Antonio) The patient was taken to the OR last night. This morning Dr. Croft and Daina are doing a dressing change and he is having a significant amount of pain. He states he had pain throughout the night even with the morphine and had to place ice on his foot. Dr. Croft is concerned about the ice with his vascular disease and it possibly impeding his healing process. She said she did make a referral to his public safety director due to abnormal ABIs, however nothing was done. Cardiology has been consulted here in the hospital. The patient is requesting his Flexeril be scheduled and his Percocet be restarted so he can take this along with the morphine for pain. <Gagan,Guerline
--- NOTE | 2021-01-27 12:30 | PC.NURSE ---
late entrys: spoke with jeny chatman aprn about hgb and hct, and also about patient fluid rate. instructed to turn fluids down to 100ml/hr. stated she would talk to joss about hg/hct. spoke with joss about patient heart rate being 120-130s. instructed to start bystolic 20mg po hs but to give his dose for today now.
--- NOTE | 2021-01-27 16:50 | PC.NURSE ---
patient has done well this shift. has been a bit sleepy since morning pain medication. pain has been more tolerable. has sat on side of bed to eat. sandi drain intact. dressing change per podiatry. rings out as needed. assistance with urinal. alert and oriented. remains in afib with heart rate in low 100s to 120. vitals stable.
[2021-01-28] VITALS (26 sets, daily range): BP systolic 103–158; BP diastolic 43–84; PULSE 92–105; RESP 16–22; TEMP 36.6–37.8; O2SAT 90–100
[2021-01-28 01:18] LABS: POC Glucose,Bedside 249 (70-110)
--- NOTE | 2021-01-28 03:59 | PC.NURSE ---
shift summary pt is alert and oriented X4. lung sounds are clear with sats maintained 90% or above on room air. pt has requested pain meds once which was relieved with pain meds. pt denies any nausea, vomiting, or diarrhea. no avue changes will continue to monitor.
[2021-01-28 06:04] LABS: POC Glucose,Bedside 202 (70-110)
[2021-01-28 06:41] LABS: Eosinophils # 0.1 K/mm3 (0.0-0.4); Monocytes # 0.9 K/mm3 (0.1-1.0)
[2021-01-28 06:48] LABS: Basophils % 0.4 % (0.1-2.0); Eosinophils % 0.7 % (0.1-12.0); Lymphocytes # 0.9 K/mm3 (0.7-4.5); Lymphocytes % 7.9 % (10-50); Mean Corpuscular HGB Conc 30.7 g/dL (31.8-35.4); Mean Corpuscular Hemoglobin 25.7 pg (27.0-31.2); Mean Corpuscular Volume 83.7 fl (80-94); Mean Platelet Volume 8.4 fl (7.4-10.4); Monocytes % 8.3 % (1.7-9.3); Neutrophils # 9.3 K/mm3 (1.8-7.8); Neutrophils % 82.7 % (37.0-80.0); Platelet Count 310 K/mm3 (142-424); Red Blood Count 2.62 M/mm3 (4.60-6.20); Red Cell Distribution Width 18.4 % (11.5-17.5); White Blood Count 11.3 K/mm3 (4.8-10.8)
[2021-01-28 06:50] LABS: Hematocrit 21.9 % (42.0-52.0); Hemoglobin 6.7 g/dL (14.1-18.0)
[2021-01-28 06:52] LABS: Anion Gap 9.9 mEq/L (5-15); Blood Urea Nitrogen 19 mg/dl (9-20); Calcium 7.7 mg/dl (8.4-10.2); Carbon Dioxide 27 mmol/L (22.0-30.0); Chloride 101 mmol/L (98-107); Creatinine Clearance Estimated 70 mL/min (50-200); Estimated Glomerular Filt Rate 56 ml/min (>60); GFR (African American) 68 ML/MIN (>60); Glucose 234 mg/dl (74-100); Potassium 4.9 mmoL/L (3.5-5.1); Sodium 133 mmol/L (136-145)
[2021-01-28 06:53] LABS: Creatine Kinase 152 U/L (55-170)
--- NOTE | 2021-01-28 08:46 | HMH.ACPN2 ---
<Destiny Farah - Last Filed: 01/28/21 08:46> Internal Medicine - PN: Subj *Date: 01/28/21 *Time: 08:46 Interval history: The patient states he feels better this morning. The leg spasms have improved. His pain is controlled on current pain management regimen. He was able to sleep last night and has been able to eat as well. Exam Vital signs and Labs for Last 24 Hours: Temp Pulse Resp BP Pulse Ox 98.5 F 105 H 19 123/79 98 01/28/21 08:00 01/28/21 08:00 01/28/21 08:00 01/28/21 08:00 01/28/21 08:00 Laboratory Results - last 24 hr 01/27/21 04:25: ESR > 140 H 01/27/21 04:25: C-Reactive Protein 182.5 H 01/27/21 20:50: POC Glucose 249 H 01/28/21 05:42: POC Glucose 202 H 01/28/21 06:22: Total Creatine Kinase 152 01/28/21 06:22: WBC 11.3 H, RBC 2.62 L, Hgb 6.7 L*, Hct 21.9 L*, MCV 83.7, MCH 25.7 L, MCHC 30.7 L, RDW 18.4 H, Plt Count 310, MPV 8.4, Neut % (Auto) 82.7 H, Lymph % (Auto) 7.9 L, [place] % (Auto) 8.3, Eos % (Auto) 0.7, Baso % (Auto) 0.4, Neut # (Auto) 9.3 H, Lymph # (Auto) 0.9, [place] # (Auto) 0.9, Eos # (Auto) 0.1, Baso # (Auto) 0.0 01/28/21 06:22: Sodium 133 L, Potassium 4.9, Chloride 101, Carbon Dioxide 27, Anion Gap 9.9, BUN 19 D, Creatinine 1.30 H D, Estimated Creat Clear 70, Estimated GFR 56 L, Est GFR ( Amer) 68 D, Glucose 234 H, Calcium 7.7 L I & O for Last 24 hours: Intake & Output 01/25/21 01/26/21 01/27/21 01/28/21 11:59 11:59 11:59 11:59 Intake Total 1139 / 1139 2247 / 2247 Output Total 1300 / 1300 300 / 300 Balance -161 / -161 1946 / 1946 Weight 415 lb 414 lb 7.504 oz Microbiology Reports for the Last 24 Hours: Microbiology 01/26/21 17:15 Foot,Right - Right Bone Culture - Preliminary NO GROWTH AFTER 24 HOURS 01/26/21 17:05 Foot,Right Gram Stain - Final 01/26/21 17:05 Foot,Right Wound Culture - Preliminary NO GROWTH AFTER 24 HOURS 01/26/21 16:22 Ankle,Right Gram Stain - Final 01/26/21 16:22 Ankle,Right Wound Culture - Preliminary NO GROWTH AFTER 24 HOURS - Constitutional no acute distress - *Routine Respiratory Exam Present: CTA bilaterally - *Routine Cardiovascular Exam Present: RRR - *Routine Abdominal Exam Present: soft, normoactive bowel sounds. Absent: tenderness - *Routine Extremities Exam Present: edema (Mild edema of right lower extremity. Right foot with dressing in place) - *Routine Skin Exam Present: warm. Absent: rash - *Routine Neurological Exam Present: alert, oriented X3 Assessment and Plan (1) Dehiscence of incision Status: Acute Qualifiers: Encounter type: initial encounter Qualified Code(s): T81.31XA - Disruption of external operation (surgical) wound, not elsewhere classified, initial encounter Category: Medical Code(s): T81.31XA - Disruption of external operation (surgical) wound, not elsewhere classified, initial encounter (2) Wound cellulitis Status: Acute Category: Medical Code(s): L03.90 - Cellulitis, unspecified (3) Cellulitis Status: Acute Qualifiers: Site of cellulitis: neck Qualified Code(s): L03.221 - Cellulitis of neck Category: Medical Code(s): L03.90 - Cellulitis, unspecified (4) Type 2 diabetes mellitus with diabetic neuropathy, with long-term current use of insulin Status: Acute Category: Medical Code(s): E11.40 - Type 2 diabetes mellitus with diabetic neuropathy, unspecified; Z79.4 - senior care (current) use of insulin (5) Status post foot surgery Status: Acute Category: Surgical Code(s): Z98.890 - Other specified postprocedural states (6) History of cancer chemotherapy Status: Acute Category: Medical Code(s): Z92.21 - Personal history of antineoplastic chemotherapy (7) Non-compliance Status: Deleted Category: Medical Code(s): Z91.19 - Patient's noncompliance with other medical treatment and regimen (8) Postoperative edema Status: Acut
--- NOTE | 2021-01-28 09:04 | HMH.ORTHPN ---
Subjective Date: 01/28/21 <Daina Antonio - 01/28/21 09:16> Time: 09:05 <Daina Antonio - 01/28/21 09:16> Principal diagnosis: R Foot I&D, s/p TMA 01/21/21 <Daina Antonio - 01/28/21 09:16> Interval history: Patient resting in bed this seems to be feeling some better. Patient stated he slept like a rock last night did not have any muscle spasms to keep him up. Patient has a low H&H and will be receiving blood later this morning per PCP. We will proceed to do patient stressing change this morning. Patient denies any N/V/D or shortness of breath. <Daina Antonio - 01/28/21 09:16> PN: Obj Ex Vital signs: Temp Pulse Resp BP Pulse Ox 98.5 F 105 H 19 123/79 98 01/28/21 08:00 01/28/21 08:00 01/28/21 08:00 01/28/21 08:00 01/28/21 08:00 <June Croft - 01/28/21 09:23> Temp Pulse Resp BP Pulse Ox 98.5 F 105 H 19 123/79 98 01/28/21 08:00 01/28/21 08:00 01/28/21 08:00 01/28/21 08:00 01/28/21 08:00 <Daina Antonio - 01/28/21 09:16> - Constitutional no acute distress <Daina Antonio - 01/28/21 09:16> - Routine HEENT Exam Head: Present: normocephalic <Daina Antonio - 01/28/21 09:16> Eye: Present: EOMI <Daina Antonio - 01/28/21 09:16> ENT: Present: mucous membranes moist <Daina Antonio - 01/28/21 09:16> - Routine Neck Exam Present: trachea midline <DimitribryceDaina L - 01/28/21 09:16> - Routine Respiratory Exam Absent: respiratory distress <MariselaDaina Kirit - 01/28/21 09:16> - Routine Cardiovascular Exam Present: tachycardia (HR 101-105) <Daina Antonio - 01/28/21 09:16> - Routine Abdominal Exam Present: obese <Daina Antonio 01/28/21 09:16> - Routine Extremities Exam Present: edema, calf tenderness (R/T achilles lengthening procedure ), amputation (s/p R TMA 01/21/21, Hx L BKA) <Daina Antonio 01/28/21 09:16> - Detailed Lower Extremity Exam Leg image: 1 - Small ulcer to his Right medial calf, no drainage and 100% granular wound bed. Site cleaned with Betadine and Utilizing a 15 blade the callus surrounding the wound was sharply debrided. Utilizing a curette the wound was debrided sharply sharply excisionally through skin into the subcu layer. Fibrotic tissue and biofilm was removed.Small Polymem dressing applied. <Daina Antonio 01/28/21 09:16> Top foot image: 1 - Right TMA, sutures and smith, ERNA drain intact. No drainage noted from suture line. Erythema and edema improved from yesterday. Suture line appears dusky this am, skin tight, approx, 10 of the smith was removed to relieve someof the tension. No bleeding noted. Site cleaned again, betadine soaked 4x4's dry 4x4's, kerlix and tennille wrap applied. <Daina Antonio 01/28/21 09:16> - Routine Back/Spine/Pelvis Exam Back/Spine: Present: full ROM <Daina Antonio 01/28/21 09:16> - Routine Skin Exam Present: erythema, dry, wounds (R TMA,ulcers to foot and Medial calf ) <Daina Antonio - 01/28/21 09:16> - Routine Neurological Exam Present: oriented X3, vision grossly intact, hearing grossly intact, normal speech <Daina Antonio 01/28/21 09:16> - Routine Psychiatric Exam Present: normal affect, cooperative <Daina Antonio 01/28/21 09:16> Progress Note: A&P (1) Dehiscence of incision Status: Acute (2) Wound cellulitis Status: Acute (3) Cellulitis Status: Acute (4) Type 2 diabetes mellitus with diabetic neuropathy, with long-term current use of insulin Status: Acute (5) Status post foot surgery Status: Acute (6) History of cancer chemotherapy Status: Acute (7) Non-compliance Status: Deleted (8) Postoperative edema Status: Acute (9) Other chronic osteomyelitis, right ankle and foot Status: Acute (10) BMI 45.0-49.9, adult Status: Acute (11) Charcot foot due t
--- NOTE | 2021-01-28 10:21 | HMH.PNCARD ---
Subjective Date: 01/28/21 Time: 10:00 Principal diagnosis: R Foot I&D, s/p TMA 01/21/21 Interval history: 60-year-old male admitted to facility due to pain of the right foot and bleeding post op on 01/21/2021. Patient had underwent surgery for amputation of toes on the right foot. Patient remains to have pain and moderate amount of bleeding of the right foot. Patient does have left below the knee amputation due to osteomyelitis and uncontrolled diabetes. Patient is noted to have an abnormal LINNETTE in which the right lower extremity was non-compressible. Audible pulses are detected with Doppler on right lower extremity. Plan was for patient to undergo right lower extremity runoff at [facility] in the next few weeks, but due to amputation of toes on the right foot and increased pain with bleeding, this has been delayed. This is being managed by podiatry and PCP. Patient denies chest pain, tightness or pressure. Patient does complain of shortness of breath with exertion. Patient denies dizziness or palpitations. Patient states he does have metastatic thyroid cancer and is currently receiving chemo treatments at [facility]. Treatments have been delayed due to his right lower extremity toe amputations. Patient states his chemotherapy treatments will resume once his right foot heals. Patient is noted to have diabetic nonhealing ulcers on the right lower extremity. Patient is a poorly controlled diabetic. Patient has history of DVT and PE. Patient is currently on Xarelto 20 mg a day. This is managed through [facility]. threat monitoring analyst reveals atrial fib with heart rate 101bpm. Pt is asymptomatic with his AF. Blood pressure is stable. Due to postsurgical bleeding with hemoglobin which has dropped since yesterday. Hemoglobin is 6.7. Cardiology has been consulted due to abnormal LINNETTE and nonhealing wound on the right lower extremity. We are unable to do right lower extremity runoff at this time until patient is hemodynamically stable. Patient is to be transfused possibly 2 units of packed red blood cells today due to low hemoglobin. This will be managed by PCP. Once patient is hemodynamically stable, we can then reconsider lower extremity runoff. Echocardiogram was performed which revealed EF 55% with no regional wall motion abnormality, mild AAS, calcified mitral valve with mild mitral stenosis, mild mitral regurgitation and mild tricuspid regurgitation. Echo:Conclusion 1. Biatrial enlargement, normal left ventricular size, mild concentric left ventricular hypertrophy, visually estimated ejection fraction 55% with no regional wall motion abnormality, diastolic parameters are inconclusive. 2. Thickened and calcified aortic valve with mild aortic stenosis, valve area is 1.4 cm???. There is no aortic insufficiency. 3. Thickened and calcified mitral valve with mild mitral stenosis, valve area is 2.6 cm???. There is mild mitral regurgitation. 4. Mild tricuspid regurgitation. 5. No significant pericardial effusion noted. Discussed plan of care with Dr. Liu. Orders were received from Dr. Liu. Will start patient on bisoprolol 5 mg p.o. for better heart rate control. Patient is to be transfused possibly 2 units of packed red blood cells today due to low hemoglobin. This is being managed through PCP. Pain management and wound care deferred to podiatry. Will defer from right lower extremity runoff until patient is hemodynamically stable. Please notify cardiology of any changes in patient status. Thank you for allowing cardiology to participate in the care of this patient. Exam Vital signs and Labs for Last 24 Hours: Temp Pulse Resp BP Pulse Ox 98.5 F 105 H 19 123/79 98 01/28/21 08:00 01/28/21 08:00 01/28/21 08:00 01/28/21 08:00 01/28/21 08:00 Laboratory Results - last 24 hr 01/27/21 20:50: POC Glucose 249 H 01/28/21 05:42: POC Glucose 202 H 01/28/21 06:22: Total Creatine Kinase 152 07
[2021-01-28 12:58] LABS: POC Glucose,Bedside 237 (70-110)
[2021-01-28 13:01] LABS: Gentamicin,Trough 1.4 ug/ml (0.0-2.0)
--- NOTE | 2021-01-28 17:07 | DIET.NUTRFU ---
Addendum entered by Toyin Carlisle 02/07/21 13:58: No changes, intakes slightly improved 50-75%, BG avg. 150. Addendum entered by Toyin Carlisle 02/04/21 14:26: Awaiting placement, no changes, intakes slightly improved. BG avg. 150. Weights have not been documented because pt is in a nonweigh bed and unable to stand. Mild BLE edema. Addendum entered by Toyin Carlisle 02/02/21 13:16: No changes nutritional status/care plan at this time, continuing to monitor. Addendum entered by Toyin Carlisle 01/31/21 14:08: PO intakes 50%, pt has been slightly disoriented. Weight has not been recorded since admission. Pt has CHF, recommend documenting weights. Significant edema in affected BLE, trace non-pitting edema t/o. BG has gradually decreased t/o stay, avg. past 48h-158. Original Note: PO intakes 75%, pt tolerating diet and reports no nutritional concerns. Weight stable, trace BLE edema, no BM since 01/25, BG moderate-avg. 230. Pt reports trying to eat less fatty meat and simple carbohydrates/high GI foods/beverages. This is a significant change for him from the past. Diet edu/counseling provided for DM, CHF, weight loss, cancer, wound healing, general/healthful plant based eating with diabetes. He continues on ADA diet. Continuing to monitor and alter nutritional care plan as indicated. Pt encouraged to reach out with questions/concerns and/or f/u as OP post dc.
[2021-01-28 19:06] LABS: Gentamicin,Peak 14.4 ug/ml (4.0-8.0)
--- NOTE | 2021-01-28 20:00 | PC.NURSE ---
reported pat gomez to night watch and public health nutritionist kvng.
[2021-01-28 21:37] LABS: POC Glucose,Bedside 299 (70-110)
[2021-01-29 00:54] LABS: Hematocrit 24.6 % (42.0-52.0); Hemoglobin 7.7 g/dL (14.1-18.0)
[2021-01-29 01:58] VITALS: BP 119/57; PULSE 90; RESP 16; TEMP 37; O2SAT 90
--- NOTE | 2021-01-29 02:57 | PC.NURSE ---
0130 paged correctional security officer no response [phone] paged correctional security officer again
[2021-01-29 03:45] VITALS: BP 101/72; PULSE 76; RESP 20; TEMP 37.9; O2SAT 91
[2021-01-29 06:04] LABS: POC Glucose,Bedside 227 (70-110)
[2021-01-29 08:00] VITALS: BP 116/77; PULSE 92; PULSE 96; RESP 19; RESP 24; TEMP 37.4; O2SAT 97
--- NOTE | 2021-01-29 09:40 | HMH.ACPN2 ---
Internal Medicine - PN: Subj *Date: 01/29/21 *Time: 09:40 Interval history: No new concerns. He received 2 units of blood yesterday and his hemoglobin is up to 7.7 today. He reports that his stools are loose but are a normal color. He denies abdominal pain. He still has appropriate postop pain that is relieved with his current medication regimen. States he slept well last night. Exam Vital signs and Labs for Last 24 Hours: Temp Pulse Resp BP Pulse Ox 100.2 F H 76 20 101/72 L 91 L 01/29/21 03:45 01/29/21 03:45 01/29/21 03:45 01/29/21 03:45 01/29/21 03:45 Laboratory Results - last 24 hr 01/28/21 08:30: Blood Type O Positive, Antibody Screen Negative, Crossmatch (AHG) See Detail 01/28/21 12:02: POC Glucose 237 H 01/28/21 12:30: Gentamicin Trough 1.4 01/28/21 18:03: Gentamicin Peak 14.4 H* 01/28/21 21:29: POC Glucose 299 H 01/29/21 00:45: Hgb 7.7 L*, Hct 24.6 L 01/29/21 05:54: POC Glucose 227 H I & O for Last 24 hours: Intake & Output 01/26/21 01/27/21 01/28/21 01/29/21 11:59 11:59 11:59 11:59 Intake Total 1139 / 1139 2247 / 2247 635 / 635 Output Total 1300 / 1300 300 / 300 300 / 300 Balance -161 / -161 1947 / 1947 335 / 335 Weight 415 lb 414 lb 7.504 oz Microbiology Reports for the Last 24 Hours: Microbiology 01/26/21 16:22 Ankle,Right - Final 01/26/21 16:22 Ankle,Right Gram Stain - Final 01/26/21 16:22 Ankle,Right Wound Culture - Preliminary Gram Positive Cocci 01/26/21 17:05 Foot,Right Gram Stain - Final 01/26/21 17:05 Foot,Right Wound Culture - Preliminary 01/26/21 17:15 Foot,Right - Right Bone Culture - Preliminary NO GROWTH AFTER 48 HOURS 01/26/21 17:05 Foot,Right - Wound - Final 01/26/21 12:16 Blood - Other Blood Culture - Preliminary NO GROWTH AFTER 48 HOURS 01/26/21 12:16 Blood - Other Blood Culture - Preliminary NO GROWTH AFTER 48 HOURS Narrative: He is alert and oriented. Color remains pale. Lungs are clear to auscultation. Heart is irregularly irregular with controlled rate. Abdomen is obese, soft, nontender. Surgical dressing is clean and dry. Blood cultures are negative. One of his surgical cultures is showing a gram-positive cocci Assessment and Plan (1) Dehiscence of incision Status: Acute Qualifiers: Encounter type: initial encounter Qualified Code(s): T81.31XA - Disruption of external operation (surgical) wound, not elsewhere classified, initial encounter Category: Medical Code(s): T81.31XA - Disruption of external operation (surgical) wound, not elsewhere classified, initial encounter (2) Wound cellulitis Status: Acute Category: Medical Code(s): L03.90 - Cellulitis, unspecified (3) Cellulitis Status: Acute Qualifiers: Site of cellulitis: neck Qualified Code(s): L03.221 - Cellulitis of neck Category: Medical Code(s): L03.90 - Cellulitis, unspecified (4) Anemia Status: Acute Category: Medical Code(s): D64.9 - Anemia, unspecified (5) Type 2 diabetes mellitus with diabetic neuropathy, with long-term current use of insulin Status: Acute Category: Medical Code(s): E11.40 - Type 2 diabetes mellitus with diabetic neuropathy, unspecified; Z79.4 - retirement (current) use of insulin (6) Status post foot surgery Status: Acute Category: Surgical Code(s): Z98.890 - Other specified postprocedural states (7) History of cancer chemotherapy Status: Acute Category: Medical Code(s): Z92.21 - Personal history of antineoplastic chemotherapy (8) Postoperative edema Status: Acute Category: Medical Code(s): R60.9 - Edema, unspecified (9) Other chronic osteomyelitis, right ankle and foot Status: Acute Category: Medical Code(s): M86.671 - Other chronic osteomyelitis, right ankle and foot (10) BMI 45.0-49.9, adult Status: Acute Category: Medi
[2021-01-29 12:00] VITALS: BP 148/62; PULSE 94; RESP 22; TEMP 36.7; O2SAT 95
--- NOTE | 2021-01-29 12:36 | HMH.PHACONS ---
- Pharmacy Consult Date: 01/29/21 Time: 12:36 Referring provider: DR. ALFREDO Reason for Consult:: GENTAMICIN LEVELS Allergies and ADEs:: Allergies Allergy/AdvReac Type Severity Reaction Status Date / Time cefepime Allergy Severe BLEEDING Verified 01/24/21 10:23 SORES pantoprazole [From Protonix] Allergy Severe Diarrhea Verified 01/24/21 10:23 piperacillin [From ZOSYN] Allergy Severe RENAL Verified 01/24/21 10:23 FAILURE tazobactam [From ZOSYN] Allergy Severe RENAL Verified 01/24/21 10:23 FAILURE vancomycin [VANCOMYCIN] Allergy Severe RENAL Verified 01/24/21 10:23 FAILURE ciprofloxacin [From CIPRO] Allergy Intermediate JOINT PAIN Verified 01/24/21 10:23 doxazosin Allergy Intermediate LOW Verified 01/24/21 10:23 BP/DEHYDRATION exenatide [From BYDUREON] Allergy Intermediate Unknown Verified 01/26/21 22:10 allergy reaction hydralazine [HYDRALAZINE] Allergy Intermediate LOW Verified 01/24/21 10:23 BP/DEHYDRATION nifedipine Allergy Intermediate LOW Verified 01/24/21 10:23 BP/DEHYDRATION pioglitazone [From ACTOS] Allergy Intermediate CHEST Verified 01/24/21 10:23 CONGESTION rosiglitazone [From AVANDIA] Allergy Intermediate CHEST Verified 01/24/21 10:23 CONGESTION sulfamethoxazole Allergy Intermediate JOINT Verified 01/24/21 10:23 [From BACTRIM] SWELLING trimethoprim [From BACTRIM] Allergy Intermediate JOINT Verified 01/24/21 10:23 SWELLING sucralfate [From CARAFATE] Allergy Unknown Unknown Verified 01/24/21 10:23 allergy reaction carvedilol AdvReac Difficulty Verified 01/24/21 10:23 Breathing hydromorphone [From Dilaudid] AdvReac Vomiting Verified 01/24/21 10:23 Home Medications:: Home Medications Medication Instructions Recorded Confirmed Type Calcium Carbonate [Calcium] 2,000 mg PO BID 07/01/17 01/26/21 History Insulin Lispro [HumaLOG 100 30 units SQ DIRECTED 07/01/17 01/26/21 History units/mL 3mL vial (SSI)] diphenhydrAMINE HCL [Benadryl 25mg 50 mg PO HSP PRN 07/01/17 01/26/21 History Capsule] hydroCHLOROthiazide [HCTZ 25mg 25 mg PO DAILY 07/01/17 01/26/21 History tab] Fluticasone Propionate [Flonase 2 spray NS DAILY 10/16/18 01/26/21 History 50mcg nasal spray 16gm] Trazodone HCl 100 mg PO HS 10/17/19 01/26/21 History Potassium Chloride 10 meq PO BID 01/08/20 01/26/21 History Nebivolol HCl [Bystolic] 20 mg PO HS 01/09/20 01/26/21 History cyclobenzaprine 5 mg tablet 5 mg PO BIDP PRN tab 01/20/20 01/27/21 History Acetaminophen [Tylenol Arthritis] 650 mg PO BID 06/01/20 01/26/21 History Amlodipine Besylate 2.5 mg PO HS 06/01/20 01/26/21 History Atorvastatin Calcium [Lipitor 20mg 20 mg PO HS 06/01/20 01/26/21 History Tab] Sennosides [Senna] 8.6 mg PO HS 06/01/20 01/26/21 History Furosemide [Lasix 20mg tablet] 20 mg PO DAILY 07/15/20 01/26/21 History Esomeprazole Magnesium [Nexium] 20 mg PO DAILY 10/08/20 01/26/21 History Gabapentin [Neurontin 600mg 600 mg PO BID 10/08/20 01/26/21 History tablet] Mometasone/Formoterol [Dulera 100 2 puff IH BID 10/08/20 01/26/21 History Mcg-5 Mcg Inhaler] lenvatinib 10 mg/day (10 mg x 1) 20 mg PO DAILY cap 12/16/20 01/26/21 History capsule insulin detemir U-100 100 unit/mL 70 unit SQ HS ml 01/13/21 01/26/21 History subcutaneous solution rivaroxaban 20 mg tablet 20 mg PO HS tab 01/13/21 01/26/21 History linezolid 600 mg tablet 600 mg PO BID 14 Days #28 tab 01/18/21 01/26/21 Rx daptomycin 500 mg intravenous 1,000 mg IV Q24H 01/24/21 01/26/21 History solution Levofloxacin/D5w [Levaquin 500 mg IV Q24H 01/25/21 01/26/21 History 500mg/100mL Premix IVPB] Albuterol Sulfate [Proair Hfa] 2 puff IH NEEDED PRN 01/26/21 01/26/21 History Levothyroxine Sodium 274 mcg PO DAILY 01/27/21 01/27/21 History [Levothyroxine 137mcg (0.137mg) Tab] Oxycodone HCl/Acetaminophen 1 tab PO Q4HP PRN 01/27/21 01/27/21 History [Percocet 10-325 mg Tablet] lisinopriL [Lisin
[2021-01-29 13:19] LABS: Basophils # 0.1 K/mm3 (0-0.2); Basophils % 0.4 % (0.1-2.0); Eosinophils # 0.2 K/mm3 (0.0-0.4); Eosinophils % 1.2 % (0.1-12.0); Hematocrit 26.2 % (42.0-52.0); Hemoglobin 8.2 g/dL (14.1-18.0); Lymphocytes # 0.7 K/mm3 (0.7-4.5); Lymphocytes % 5.5 % (10-50); Mean Corpuscular HGB Conc 31.4 g/dL (31.8-35.4); Mean Corpuscular Hemoglobin 26.4 pg (27.0-31.2); Mean Corpuscular Volume 84.2 fl (80-94); Mean Platelet Volume 8.6 fl (7.4-10.4); Monocytes # 0.8 K/mm3 (0.1-1.0); Monocytes % 6.5 % (1.7-9.3); Neutrophils % 86.4 % (37.0-80.0); Platelet Count 358 K/mm3 (142-424); Red Blood Count 3.11 M/mm3 (4.60-6.20); Red Cell Distribution Width 17.6 % (11.5-17.5); White Blood Count 12.7 K/mm3 (4.8-10.8)
[2021-01-29 13:24] LABS: MANUAL DIFFERENTIAL MANUAL DIFFERENTIAL (MANUAL DIFF)
[2021-01-29 13:29] LABS: Gentamicin,Trough 1.9 ug/ml (0.0-2.0)
[2021-01-29 13:46] LABS: Hypochromasia 1+; Lymphocytes % 7 % (10-50); Monocytes % 5 % (2-9); Neutrophils % 81 % (42-76); Platelet Estimate Normal; Total Cells Counted 100
[2021-01-29 16:00] VITALS: BP 141/57; PULSE 103; RESP 22; TEMP 37.8; O2SAT 93
--- NOTE | 2021-01-29 18:42 | PC.NURSE ---
PT NOTED TO HAVE LOW GRADE FEVER THIS EVENING, TREATED WITH PRN TYLENOL, FEVER REDUCED TO 99 ORALLY, 2LNC PRN FOR SATS BELOW 90%, HE HAS TOLERATED DIET WELL, DSG IN PLACE TO RLE C/D/I, ERNA DRAIN REMAINS IN PLACE WITH SEROSANGUINEOUS NOTED, PT DID BECOME DISORIENTED WHEN HE WAS FEBRILE BUT THIS SUBSIDED WHEN HIS FEVER BROKE, DR JANG WAS CONTACTED BUT KNOW NEW ORDERS RECEIVED, NO NEEDS AT THIS TIME.
[2021-01-29 20:00] VITALS: BP 136/64; PULSE 76; RESP 20; TEMP 36.7; O2SAT 91
[2021-01-29 20:29] LABS: POC Glucose,Bedside 230 (70-110)
[2021-01-29 23:11] LABS: POC Glucose,Bedside 205 (70-110)
[2021-01-29 23:11] LABS: POC Glucose,Bedside 251 (70-110)
[2021-01-30] VITALS (8 sets, daily range): BP systolic 92–155; BP diastolic 58–89; PULSE 70–98; RESP 18–20; TEMP 36.6–37.7; O2SAT 90–99
--- NOTE | 2021-01-30 04:37 | PC.NURSE ---
PT A&O, but has had some brief periods of confusion. Pt intermittently uses 2L NC when SOA. Drsg to RLE CDI, pt removed ERNA drain himself while sitting on the side of the bed. When this RN asked the pt why he took it out, he said it belonged to the patient who in that room before him. MD aware, no new orders. ERNA drainage was minimal sersanginous fluid prior to that. PICC patent, NS @ 100. VSS, call light in reach, no concerns at this time.
[2021-01-30 06:13] LABS: POC Glucose,Bedside 178 (70-110)
[2021-01-30 06:54] LABS: Basophils % 0.4 % (0.1-2.0); Eosinophils # 0.1 K/mm3 (0.0-0.4); Eosinophils % 0.7 % (0.1-12.0); Lymphocytes # 0.6 K/mm3 (0.7-4.5); Lymphocytes % 4.9 % (10-50); Mean Corpuscular HGB Conc 31.1 g/dL (31.8-35.4); Mean Corpuscular Hemoglobin 26.2 pg (27.0-31.2); Mean Corpuscular Volume 84.1 fl (80-94); Mean Platelet Volume 8.1 fl (7.4-10.4); Monocytes # 0.9 K/mm3 (0.1-1.0); Neutrophils # 10.6 K/mm3 (1.8-7.8); Platelet Count 368 K/mm3 (142-424); Red Blood Count 2.98 M/mm3 (4.60-6.20); Red Cell Distribution Width 17.6 % (11.5-17.5); White Blood Count 12.2 K/mm3 (4.8-10.8)
[2021-01-30 06:56] LABS: Hematocrit 25.1 % (42.0-52.0); Hemoglobin 7.8 g/dL (14.1-18.0)
[2021-01-30 06:57] LABS: MANUAL DIFFERENTIAL MANUAL DIFFERENTIAL (MANUAL DIFF)
[2021-01-30 07:03] LABS: Chloride 104 mmol/L (98-107); Potassium 4.6 mmoL/L (3.5-5.1); Sodium 134 mmol/L (136-145)
[2021-01-30 07:06] LABS: Anion Gap 8.6 mEq/L (5-15); Blood Urea Nitrogen 29 mg/dl (9-20); Calcium 8.2 mg/dl (8.4-10.2); Carbon Dioxide 26 mmol/L (22.0-30.0); Creatinine Clearance Estimated 92 mL/min (50-200); Estimated Glomerular Filt Rate 86 ml/min (>60); GFR (African American) 103 ML/MIN (>60); Glucose 189 mg/dl (74-100)
[2021-01-30 07:15] LABS: Anisocytosis 1+; Hypochromasia 2+; Lymphocytes % 6 % (10-50); Monocytes % 2 % (2-9); Neutrophils % 85 % (42-76); Platelet Estimate Normal; Rouleaux 3+; Total Cells Counted 100
--- NOTE | 2021-01-30 09:02 | HMH.ACPN2 ---
Internal Medicine - PN: Subj *Date: 01/30/21 *Time: 09:02 Interval history: He slept most of the day yesterday and then all night and feels like he cannot wake up this morning. He actually drifts off to sleep during the interview. He denies complaints of pain. He did not receive any morphine yesterday but did have some doses of Percocet. He had a low-grade fever of 100.1 yesterday. He is eating okay. Note that he did pull out his ERNA drain during a spell of confusion yesterday. Exam Vital signs and Labs for Last 24 Hours: Temp Pulse Resp BP Pulse Ox 99.8 F H 93 H 20 92/73 L 90 L 01/30/21 08:00 01/30/21 08:00 01/30/21 08:00 01/30/21 08:00 01/30/21 08:00 Laboratory Results - last 24 hr 01/29/21 11:35: POC Glucose 251 H 01/29/21 13:08: Gentamicin Trough 1.9 01/29/21 13:08: WBC 12.7 H, RBC 3.11 L, Hgb 8.2 L, Hct 26.2 L, MCV 84.2, MCH 26.4 L, MCHC 31.4 L, RDW 17.6 H, Plt Count 358, MPV 8.6, Neut % (Auto) 86.4 H, Lymph % (Auto) 5.5 L, [place] % (Auto) 6.5, Eos % (Auto) 1.2, Baso % (Auto) 0.4, Neut # (Auto) 11.0 H, Lymph # (Auto) 0.7, [place] # (Auto) 0.8, Eos # (Auto) 0.2, Baso # (Auto) 0.1, Total Counted 100, Neutrophils % (Manual) 81 H, Band Neutrophils % 4.0, Lymphocytes % (Manual) 7 L, Monocytes % (Manual) 5, Metamyelocytes % 3.0 H, Platelet Estimate Normal, Hypochromasia 1+ 01/29/21 17:12: POC Glucose 205 H 01/29/21 20:11: POC Glucose 230 H 01/30/21 06:02: POC Glucose 178 H 01/30/21 06:33: Sodium 134 L, Potassium 4.6, Chloride 104, Carbon Dioxide 26, Anion Gap 8.6, BUN 29 H D, Creatinine 0.90 D, Estimated Creat Clear 92, Estimated GFR 86, Est GFR ( Amer) 103 D, Glucose 189 H, Calcium 8.2 L, C-Reactive Protein 285.0 H 01/30/21 06:33: WBC 12.2 H, RBC 2.98 L, Hgb 7.8 L*, Hct 25.1 L, MCV 84.1, MCH 26.2 L, MCHC 31.1 L, RDW 17.6 H, Plt Count 368, MPV 8.1, Neut % (Auto) 87.0 H, Lymph % (Auto) 4.9 L, [place] % (Auto) 7.0, Eos % (Auto) 0.7, Baso % (Auto) 0.4, Neut # (Auto) 10.6 H, Lymph # (Auto) 0.6 L, [place] # (Auto) 0.9, Eos # (Auto) 0.1, Baso # (Auto) 0.0, Total Counted 100, Neutrophils % (Manual) 85 H, Band Neutrophils % 5.0, Lymphocytes % (Manual) 6 L, Monocytes % (Manual) 2, Metamyelocytes % 2.0 H, Platelet Estimate Normal, Hypochromasia 2+, Anisocytosis 1+, Rouleaux 3+ I & O for Last 24 hours: Intake & Output 01/27/21 01/28/21 01/29/21 01/30/21 11:59 11:59 11:59 11:59 Intake Total 1139 / 1139 2247 / 2247 635 / 635 4133 / 4133 Output Total 1300 / 1300 300 / 300 300 / 300 850 / 850 Balance -161 / -161 1947 / 1947 335 / 335 3283 / 3283 Weight 415 lb 414 lb 7.504 oz Microbiology Reports for the Last 24 Hours: Microbiology 01/26/21 17:05 Foot,Right Gram Stain - Final 01/26/21 17:05 Foot,Right Wound Culture - Preliminary 01/26/21 16:22 Ankle,Right Gram Stain - Final 01/26/21 16:22 Ankle,Right Wound Culture - Final Staphylococcus epidermidis 01/26/21 17:15 Foot,Right - Right Bone Culture - Preliminary NO GROWTH AFTER 72 HOURS 01/26/21 16:22 Ankle,Right - Final Narrative: He is somnolent but arouses and answers questions appropriately. He quickly falls back asleep. Color is adequate. Lungs are clear anteriorly.. Heart is irregularly irregular. Assessment and Plan (1) Dehiscence of incision Status: Acute Qualifiers: Encounter type: initial encounter Qualified Code(s): T81.31XA - Disruption of external operation (surgical) wound, not elsewhere classified, initial encounter Category: Medical Code(s): T81.31XA - Disruption of external operation (surgical) wound, not elsewhere classified, initial encounter (2) Wound cellulitis Status: Acute Category: Medical Code(s): L03.90 - Cellulitis, unspecified (3) Cellulitis Status: Acute Qualifiers: Site of cellulitis: neck Qualified Code(s): L03.221 - Cellulitis of neck Category: Medical Code(s): L03.90 - Cellulitis, unspecified (4) Anemia S
[2021-01-30 11:49] LABS: ABG Base Excess -5.1 mmol/L (-2.4-2.3); ABG HCO3 20.4 mmhg (22.0-26.0); ABG Oxygen Saturation 97 % (90-100); ABG PCO2 37.7 mmhg (35.0-45.0); ABG PH 7.35 mmol/L (7.35-7.45); ABG PO2 103.6 mmhg (80-100); ABG TCO2 21.6 mmhg (23-27)
[2021-01-30 11:50] LABS: Lactate Arterial 1.2 mmol/L (0.4-2.0)
[2021-01-30 11:55] LABS: Allen's Test Acceptable; Oxygen 2.5L %
[2021-01-30 11:56] LABS: Source Right Radial
[2021-01-30 12:01] LABS: POC Glucose,Bedside 177 (70-110)
--- NOTE | 2021-01-30 12:02 | HMH.ACPN ---
Internal Medicine - PN: Subj *Date: 01/30/21 *Time: 12:02 Exam Vital signs and Labs for Last 24 Hours: Temp Pulse Resp BP Pulse Ox 98.8 F 76 20 106/89 L 99 01/30/21 11:34 01/30/21 11:34 01/30/21 11:34 01/30/21 11:34 01/30/21 11:34 Laboratory Results - last 24 hr 01/29/21 11:35: POC Glucose 251 H 01/29/21 13:08: Gentamicin Trough 1.9 01/29/21 13:08: WBC 12.7 H, RBC 3.11 L, Hgb 8.2 L, Hct 26.2 L, MCV 84.2, MCH 26.4 L, MCHC 31.4 L, RDW 17.6 H, Plt Count 358, MPV 8.6, Neut % (Auto) 86.4 H, Lymph % (Auto) 5.5 L, [place] % (Auto) 6.5, Eos % (Auto) 1.2, Baso % (Auto) 0.4, Neut # (Auto) 11.0 H, Lymph # (Auto) 0.7, [place] # (Auto) 0.8, Eos # (Auto) 0.2, Baso # (Auto) 0.1, Total Counted 100, Neutrophils % (Manual) 81 H, Band Neutrophils % 4.0, Lymphocytes % (Manual) 7 L, Monocytes % (Manual) 5, Metamyelocytes % 3.0 H, Platelet Estimate Normal, Hypochromasia 1+ 01/29/21 17:12: POC Glucose 205 H 01/29/21 20:11: POC Glucose 230 H 01/30/21 06:02: POC Glucose 178 H 01/30/21 06:33: Sodium 134 L, Potassium 4.6, Chloride 104, Carbon Dioxide 26, Anion Gap 8.6, BUN 29 H D, Creatinine 0.90 D, Estimated Creat Clear 92, Estimated GFR 86, Est GFR ( Amer) 103 D, Glucose 189 H, Calcium 8.2 L, C-Reactive Protein 285.0 H 01/30/21 06:33: WBC 12.2 H, RBC 2.98 L, Hgb 7.8 L*, Hct 25.1 L, MCV 84.1, MCH 26.2 L, MCHC 31.1 L, RDW 17.6 H, Plt Count 368, MPV 8.1, Neut % (Auto) 87.0 H, Lymph % (Auto) 4.9 L, [place] % (Auto) 7.0, Eos % (Auto) 0.7, Baso % (Auto) 0.4, Neut # (Auto) 10.6 H, Lymph # (Auto) 0.6 L, [place] # (Auto) 0.9, Eos # (Auto) 0.1, Baso # (Auto) 0.0, Total Counted 100, Neutrophils % (Manual) 85 H, Band Neutrophils % 5.0, Lymphocytes % (Manual) 6 L, Monocytes % (Manual) 2, Metamyelocytes % 2.0 H, Platelet Estimate Normal, Hypochromasia 2+, Anisocytosis 1+, Rouleaux 3+ 01/30/21 08:59: ABG Lactate 1.2 01/30/21 08:59: Specimen Source Right radial, O2 % 2.5l, ABG pH 7.35, ABG pCO2 37.7, ABG pO2 103.6 H, ABG HCO3 20.4 L, ABG Total CO2 21.6 L, ABG O2 Saturation 97, ABG Base Excess -5.1 L, Paul Test Acceptable 01/30/21 11:49: POC Glucose 177 H I & O for Last 24 hours: Intake & Output 01/27/21 01/28/21 01/29/21 01/30/21 23:59 23:59 23:59 23:59 Intake Total 3106 / 3106 915 / 915 3773 / 3773 360 / 360 Output Total 700 / 1000 300 / 500 300 / 450 850 / 850 Balance 2406 / 2106 615 / 415 3473 / 3323 -490 / -490 Weight 188 kg Microbiology Reports for the Last 24 Hours: Microbiology 01/26/21 17:05 Foot,Right Gram Stain - Final 01/26/21 17:05 Foot,Right Wound Culture - Preliminary 01/26/21 16:22 Ankle,Right Gram Stain - Final 01/26/21 16:22 Ankle,Right Wound Culture - Final Staphylococcus epidermidis 01/26/21 17:15 Foot,Right - Right Bone Culture - Preliminary NO GROWTH AFTER 72 HOURS 01/26/21 16:22 Ankle,Right - Final Assessment and Plan (1) Dehiscence of incision Status: Acute Qualifiers: Encounter type: initial encounter Qualified Code(s): T81.31XA - Disruption of external operation (surgical) wound, not elsewhere classified, initial encounter Category: Medical Code(s): T81.31XA - Disruption of external operation (surgical) wound, not elsewhere classified, initial encounter (2) Wound cellulitis Status: Acute Category: Medical Code(s): L03.90 - Cellulitis, unspecified (3) Cellulitis Status: Acute Qualifiers: Site of cellulitis: neck Qualified Code(s): L03.221 - Cellulitis of neck Category: Medical Code(s): L03.90 - Cellulitis, unspecified (4) Anemia Status: Acute Category: Medical Code(s): D64.9 - Anemia, unspecified (5) Type 2 diabetes mellitus with diabetic neuropathy, with long-term current use of insulin Status: Acute Category: Medical Code(s): E11.40 - Type 2 diabetes mellitus with diabetic neuropathy, unspecified; Z79.4 - watermaster (current) use of insulin (6) Status post foot surgery Status:
--- NOTE | 2021-01-30 19:44 | PC.NURSE ---
PT IS ABLE TO ANSWER ORIENTATION QUESTIONS BUT HAS DISPLAYED EPISODES OF CONFUSION, 2LNC IN PLACE, HE HAS TOLERATED DIET WELL, HAS DENIED PAIN WHEN ASKED, NO NEEDS VOICED,
[2021-01-30 21:54] LABS: POC Glucose,Bedside 160 (70-110)
[2021-01-31] VITALS (8 sets, daily range): BP systolic 116–156; BP diastolic 56–75; PULSE 56–92; RESP 18–22; TEMP 36.6–37.3; O2SAT 85–100
[2021-01-31 01:48] LABS: POC Glucose,Bedside 168 (70-110)
[2021-01-31 05:50] LABS: POC Glucose,Bedside 131 (70-110)
[2021-01-31 06:08] LABS: Basophils # 0.1 K/mm3 (0-0.2); Basophils % 0.5 % (0.1-2.0); Eosinophils # 0.2 K/mm3 (0.0-0.4); Lymphocytes # 0.7 K/mm3 (0.7-4.5); Mean Corpuscular Hemoglobin 26.2 pg (27.0-31.2); Mean Corpuscular Volume 84.3 fl (80-94); Mean Platelet Volume 7.8 fl (7.4-10.4); Monocytes # 0.8 K/mm3 (0.1-1.0); Monocytes % 8.1 % (1.7-9.3); Neutrophils # 8.2 K/mm3 (1.8-7.8); Neutrophils % 82.4 % (37.0-80.0); Platelet Count 387 K/mm3 (142-424); Red Cell Distribution Width 17.5 % (11.5-17.5)
[2021-01-31 06:13] LABS: Hematocrit 24.5 % (42.0-52.0); Hemoglobin 7.6 g/dL (14.1-18.0)
--- NOTE | 2021-01-31 06:17 | PC.NURSE ---
anshu from lab called to report a critical hemoglobin and hematocrt. .01/22.5. verified name and
[2021-01-31 06:31] LABS: Chloride 106 mmol/L (98-107); Potassium 4.6 mmoL/L (3.5-5.1); Sodium 137 mmol/L (136-145)
[2021-01-31 06:34] LABS: Alanine Aminotransferase 27 U/L (12-78); Albumin/Globulin Ratio 0.8 (1.1-1.8); Alkaline Phosphatase 236 U/L (38-126); Anion Gap 8.6 mEq/L (5-15); Aspartate Amino Transferase 38 U/L (17-59); Bilirubin,Total 0.4 mg/dl (0.2-1.3); Blood Urea Nitrogen 26 mg/dl (9-20); Carbon Dioxide 27 mmol/L (22.0-30.0); Creatinine Clearance Estimated 92 mL/min (50-200); Estimated Glomerular Filt Rate 98 ml/min (>60); GFR (African American) 119 ML/MIN (>60); Globulin 3.6 g/dL (1.3-3.2); Total Protein,Serum 6.6 g/dl (6.3-8.2)
[2021-01-31 06:35] LABS: Calcium 8.3 mg/dl (8.4-10.2); Glucose 127 mg/dl (74-100)
[2021-01-31 07:34] LABS: Erythrocyte Sedimentation Rate > 140 mm/hr (0-20)
--- NOTE | 2021-01-31 07:50 | PC.NURSE ---
picc line patent and infusing per order. vss. 2LNC uses PRN. dressing in place to right foot. alert and oriented. pain reported at times and prn med given with relief. call light in reach. will continue to monitor
--- NOTE | 2021-01-31 08:13 | HMH.ORTHPN ---
Subjective Date: 01/31/21 Time: 07:45 Principal diagnosis: R Foot I&D, s/p TMA 01/21/21 Interval history: Patient is resting comfortably sitting at the bedside, eating breakfast. His reports periods of confusion. Patient denies pain at rest, pain with touching the right foot. PN: Obj Ex Vital signs: Temp Pulse Resp BP Pulse Ox 97.9 F 56 L 19 116/64 94 L 01/31/21 04:00 01/31/21 04:00 01/31/21 04:00 01/31/21 04:00 01/31/21 04:00 - Constitutional no acute distress, somnolent - Routine HEENT Exam Head: Present: normocephalic Eye: Present: EOMI ENT: Present: mucous membranes moist - Routine Extremities Exam Present: edema, joint swelling, amputation (left BKA, right TMA) - Detailed Lower Extremity Exam Top foot image: 1 - Ulcer to right medial calf: no drainage and 100% granular wound bed. Site cleaned with betadine and utilizing a 15 blade, curette the ulcer was sharply debrided thru skin into involving subq tissue. Post: 1.5x0.8x0.1cm. Small Polymem dressing applied. Ulcer noted to right medial foot: Utilizing a curette the wound was debrided sharply sharply excisionally through skin into/involving subcu layer. Fibrotic tissue and biofilm was removed. Post: 1.5x0.8x0.3cm. Right anterior ankle and TMA site: sutures and smith intact. ERNA drain removed by patient. Serosanginous drainage noted from suture line. Erythema and edema noted. Incision sites are more dusky. Minimal bleeding noted. Site cleaned again, betadine soaked 4x4's dry 4x4's, kerlix and tennille wrap applied. Progress Note: A&P (1) Dehiscence of incision Status: Acute (2) Wound cellulitis Status: Acute (3) Cellulitis Status: Acute (4) Anemia Status: Acute (5) Type 2 diabetes mellitus with diabetic neuropathy, with long-term current use of insulin Status: Chronic (6) Status post foot surgery Status: Acute (7) History of cancer chemotherapy Status: Acute (8) Postoperative edema Status: Acute (9) Other chronic osteomyelitis, right ankle and foot Status: Acute (10) BMI 45.0-49.9, adult Status: Acute (11) Charcot foot due to diabetes mellitus Status: Acute (12) Near syncope Status: Acute (13) Diabetic ulcer of right midfoot associated with type 2 diabetes mellitus, with fat layer exposed Status: Acute (14) Osteomyelitis of fifth toe of right foot Status: Acute (15) PVD (peripheral vascular disease) Status: Acute (16) Status post incision and drainage Status: Acute (17) History of left below knee amputation Status: Chronic (18) Type 2 diabetes mellitus Status: Chronic (19) Klebsiella infection Status: Acute (20) History of peptic ulcer disease Status: Acute (21) Hypersomnolence Status: Acute Assessment and Plan for All Diagnoses:: 01/26/21- Right foot suture, staple, ERNA drain removal, Right tarsometatarsal amputation (lisfranc disarticulation), Right foot, ankle incision and drainage, Right wound/ulcer debridement x2, Right application of ERNA drain. POD#5 Specimens: Right ankle wound culture, right foot wound culture Right metatarsals 1,5 bone culture Right metatarsals 2-4 bone pathology Labs: 01/28/2021, WBC 11.3, hemoglobin 6.7, hematocrit 21.9 01/27/2021, WBC 9.2, hemoglobin 7.4, hematocrit 23.7 01/26/21, ESR >140, CRP 206.3 Microbiology 01/26/21 17:05 Foot,Right - Wound - Final 01/26/21 17:05 Foot,Right Gram Stain - Final 01/26/21 16:22 Ankle,Right Gram Stain - Final 01/26/21 16:22 Ankle,Right Wound Culture - Final Staphylococcus epidermidis 01/26/21 12:16 Blood - Other Blood Culture - Final NO GROWTH AFTER 5 DAYS 01/26/21 17:15 Foot,Right - Right Bone Culture - Preliminary NO GROWTH AFTER 4 DAYS 01/26/21 17:05 Foot,Right Wound Culture - Prel
--- NOTE | 2021-01-31 08:23 | HMH.ACPN2 ---
<Lily Bender - Last Filed: 01/31/21 08:23> Internal Medicine - PN: Subj *Date: 01/31/21 *Time: 08:23 Interval history: Patient remains periodically disoriented. He sleeps most of the time. He did fall asleep during assessment. He states he is just eating okay. He denies chest pain and shortness of breath. at bedside. She states he had several bowel movements last night. She notes also confusion and sleeping most of the time. Patient had dressing change per Dr. Croft this a.m. after right tarsometatarsal amputation of the right foot. She debrided the right wound ulcer; he has a ERNA drain. Plan per Dr. Croft: -Maintain dressing clean dry and intact to right foot, reinforce as necessary. -NWB in short fracture boot, wheelchair. -Continue PICC, IV Antibiotics: Dapto 1g, Levofloxacin 500mg q24h, gent -Dressing change this am per Podiatry. *Daily dsg changes: cleanse skin with betadine. Apply betadine soaked gauze with dry sterile dressing (kerlix, abd, tennille) to RLE. Apply Polymem to right proximal calf ulcer. -No plans for Podiatry surgery today. Will need further surgery including debridement and application of wound vac (high risk for BKA in future if he does not response to the IV Abx and get increased circulation) -Cardiology: they will await run off, patient requires blood transfusion (defer mgmt to PCP) Laboratory data this a.m.: Normal electrolytes with a BUN of 26 and creatinine of 0.8. C-reactive protein is 255 alkaline phosphatase elevated to 36. H&H with a hemoglobin of 7.6 and hematocrit of 24.5. White blood cell count is 10,000. Blood cultures show no growth. Bone culture thus far shows no growth. Exam Vital signs and Labs for Last 24 Hours: Temp Pulse Resp BP Pulse Ox 97.9 F 56 L 19 116/64 94 L 01/31/21 04:00 01/31/21 04:00 01/31/21 04:00 01/31/21 04:00 01/31/21 04:00 Laboratory Results - last 24 hr 01/30/21 08:59: ABG Lactate 1.2 01/30/21 08:59: Specimen Source Right radial, O2 % 2.5l, ABG pH 7.35, ABG pCO2 37.7, ABG pO2 103.6 H, ABG HCO3 20.4 L, ABG Total CO2 21.6 L, ABG O2 Saturation 97, ABG Base Excess -5.1 L, Paul Test Acceptable 01/30/21 11:49: POC Glucose 177 H 01/30/21 17:19: POC Glucose 168 H 01/30/21 21:25: POC Glucose 160 H 01/31/21 05:42: POC Glucose 131 H 01/31/21 05:55: ESR > 140 H 01/31/21 05:55: WBC 10.0, RBC 2.90 L, Hgb 7.6 L*, Hct 24.5 L, MCV 84.3, MCH 26.2 L, MCHC 31.0 L, RDW 17.5, Plt Count 387, MPV 7.8, Neut % (Auto) 82.4 H, Lymph % (Auto) 7.0 L, [place] % (Auto) 8.1, Eos % (Auto) 2.0, Baso % (Auto) 0.5, Neut # (Auto) 8.2 H, Lymph # (Auto) 0.7, [place] # (Auto) 0.8, Eos # (Auto) 0.2, Baso # (Auto) 0.1 01/31/21 05:55: Sodium 137, Potassium 4.6, Chloride 106, Carbon Dioxide 27, Anion Gap 8.6, BUN 26 H, Creatinine 0.80, Estimated Creat Clear 92, Estimated GFR 98, Est GFR ( Amer) 119, Glucose 127 H D, Calcium 8.3 L, Total Bilirubin 0.4, AST 38, ALT 27, Alkaline Phosphatase 236 H, C-Reactive Protein 255.0 H, Total Protein 6.6, Albumin 3.0 L, Globulin 3.6 H, Albumin/Globulin Ratio 0.8 L I & O for Last 24 hours: Intake & Output 01/28/21 01/29/21 01/30/21 01/31/21 11:59 11:59 11:59 11:59 Intake Total 2247 / 2247 635 / 635 4133 / 4133 3687 / 3687 Output Total 300 / 300 300 / 300 850 / 850 2275 / 2275 Balance 194 / 194 335 / 335 3283 / 3283 1412 / 1412 Weight 414 lb 7.504 oz Microbiology Reports for the Last 24 Hours: Microbiology 01/26/21 17:05 Foot,Right Gram Stain - Final 01/26/21 17:05 Foot,Right Wound Culture - Preliminary 01/26/21 17:15 Foot,Right - Right Bone Culture - Preliminary NO GROWTH AFTER 4 DAYS 01/26/21 16:22 Ankle,Right Gram Stain - Final 01/26/21 16:22 Ankle,Right Wound Culture - Final Staphylococcus epidermidis - Constitutional no acute distress, morbidly obese, somnolent - *Routine Respiratory Exam Present: CTA bilaterally - *Routine Cardiovasc
--- NOTE | 2021-01-31 08:26 | ECG_ITS ---
APPROVED REPORT Exam: Resting ECG HR:86 bpm ECG Measurements Heart Rate 86 AXES RI 190 P 40 QRSd 92 QRS 62 QT 364 T 53 QTc 435 Conclusion Normal sinus rhythm with sinus arrhythmia Low voltage QRS Borderline ECG Electronically signed by : Richie Coulter, 02/01/2021 08:27:10
--- NOTE | 2021-01-31 08:41 | HMH.PNCARD ---
Subjective Date: 01/31/21 Time: 08:42 Principal diagnosis: R Foot I&D, s/p TMA 01/21/21 Interval history: 60 yo WM in bed in NAD. is present. Pt knows he is in the hospital but still seems to have difficulty concentrating/focusing and even falls asleep during exam. Right foot pain persists. EKG today is sinus at 86 bpm. Exam Vital signs and Labs for Last 24 Hours: Temp Pulse Resp BP Pulse Ox 97.9 F 56 L 19 116/64 94 L 01/31/21 04:00 01/31/21 04:00 01/31/21 04:00 01/31/21 04:00 01/31/21 04:00 Laboratory Results - last 24 hr 01/30/21 08:59: ABG Lactate 1.2 01/30/21 08:59: Specimen Source Right radial, O2 % 2.5l, ABG pH 7.35, ABG pCO2 37.7, ABG pO2 103.6 H, ABG HCO3 20.4 L, ABG Total CO2 21.6 L, ABG O2 Saturation 97, ABG Base Excess -5.1 L, Paul Test Acceptable 01/30/21 11:49: POC Glucose 177 H 01/30/21 17:19: POC Glucose 168 H 01/30/21 21:25: POC Glucose 160 H 01/31/21 05:42: POC Glucose 131 H 01/31/21 05:55: ESR > 140 H 01/31/21 05:55: WBC 10.0, RBC 2.90 L, Hgb 7.6 L*, Hct 24.5 L, MCV 84.3, MCH 26.2 L, MCHC 31.0 L, RDW 17.5, Plt Count 387, MPV 7.8, Neut % (Auto) 82.4 H, Lymph % (Auto) 7.0 L, [place] % (Auto) 8.1, Eos % (Auto) 2.0, Baso % (Auto) 0.5, Neut # (Auto) 8.2 H, Lymph # (Auto) 0.7, [place] # (Auto) 0.8, Eos # (Auto) 0.2, Baso # (Auto) 0.1 01/31/21 05:55: Sodium 137, Potassium 4.6, Chloride 106, Carbon Dioxide 27, Anion Gap 8.6, BUN 26 H, Creatinine 0.80, Estimated Creat Clear 92, Estimated GFR 98, Est GFR ( Amer) 119, Glucose 127 H D, Calcium 8.3 L, Total Bilirubin 0.4, AST 38, ALT 27, Alkaline Phosphatase 236 H, C-Reactive Protein 255.0 H, Total Protein 6.6, Albumin 3.0 L, Globulin 3.6 H, Albumin/Globulin Ratio 0.8 L I & O for Last 24 hours: Intake & Output 01/28/21 01/29/21 01/30/21 01/31/21 11:59 11:59 11:59 11:59 Intake Total 2247 / 2247 635 / 635 4133 / 4133 3687 / 3687 Output Total 300 / 300 300 / 300 850 / 850 2275 / 2275 Balance 1947 / 1947 335 / 335 3283 / 3283 1412 / 1412 Weight 414 lb 7.504 oz Microbiology Reports for the Last 24 Hours: Microbiology 01/26/21 17:05 Foot,Right Gram Stain - Final 01/26/21 17:05 Foot,Right Wound Culture - Preliminary 01/26/21 17:15 Foot,Right - Right Bone Culture - Preliminary NO GROWTH AFTER 4 DAYS 01/26/21 16:22 Ankle,Right Gram Stain - Final 01/26/21 16:22 Ankle,Right Wound Culture - Final Staphylococcus epidermidis - Constitutional no acute distress, morbidly obese Comments: Awake and alert but does have to focus to answer questions. Drifts to sleep quickly. - *Routine Respiratory Exam Present: CTA bilaterally, diminished air movement - *Routine Cardiovascular Exam Present: RRR - *Routine Extremities Exam Present: edema. Absent: cyanosis, clubbing Comments: Right lower extremity edematous into the thigh. The right foot and lower calf are wrapped in bandage. This was not removed. - *Routine Neurological Exam Present: alert, oriented X3 Progress Note: A&P (1) Dehiscence of incision Status: Acute (2) Wound cellulitis Status: Acute (3) Cellulitis Status: Acute (4) Anemia Status: Acute (5) Type 2 diabetes mellitus with diabetic neuropathy, with long-term current use of insulin Status: Chronic (6) Status post foot surgery Status: Acute (7) History of cancer chemotherapy Status: Acute (8) Postoperative edema Status: Acute (9) Other chronic osteomyelitis, right ankle and foot Status: Acute (10) BMI 45.0-49.9, adult Status: Acute (11) Charcot foot due to diabetes mellitus Status: Acute (12) Near syncope Status: Acute (13) Diabetic ulcer of right midfoot associated with type 2 diabetes mellitus, with fat layer exposed Status: Acute (14) Osteomyelitis of fifth toe of right foot Status: Acute (15) PVD (peripheral vascular disease) Status: Acute (16) Status post i
--- NOTE | 2021-01-31 09:09 | CT_ITS ---
Procedure: CT ANGIO LE RT CLINICAL HISTORY: Non-healing wound Rt lt BKA Osteo Abcess rt foot COMPARISON: CT CT HIP LT WO CON from 10/08/[address] FOOT RT WO CON from 01/26/2021 TECHNIQUE: IV Contrast: 100ml Isovue 370 Axial images obtained with sagittal and coronal reformats. All CT scans at the facility use one or more dose reduction, viz: automated exposure control, ma/kV adjustment per patient size (including targeted exams where dose is matched to indication, i.e. head), or iterative reconstruction technique. FINDINGS: Exam is limited secondary to patient's body habitus. Artifact is present from spinal fusion device at the lumbosacral junction. Abdominal aorta: No significant stenosis or occlusion. Iliac arteries: Calcific eccentric plaque. No significant stenosis. Right lower extremity: Diffuse eccentric calcific plaque. No significant stenosis through the popliteal region.. The tibial peroneal trunk does appear to be patent. Distal to this region there is diffuse calcification of the runoff vessels which are very small in caliber.. The anterior tibial, posterior tibial and peroneal arteries appear to be patent at least to the mid leg. The anterior tibial artery and posterior tibial artery appears to be patent to the ankle. Is very difficult to be certain about this finding due to the extreme small size of the vessels and the diffuse arterial calcification. The peroneal artery appears patent to the distal tibial region. The posterior tibial artery does give rise to a medial plantar artery which extends to the amputation site. There is a lytic lesion in the left lower ilium and ileo ischial junction at the super acetabular area this measures 5 cm cephalad caudad and 3.7 cm transverse and 5 cm AP. There is destruction of the medial cortex having a fragmented appearance. This has a similar appearance compared to 10/08/2020. Stable lesion of the posterior superior iliac spine. There has been a prior below the knee amputation on the left with diffuse atherosclerotic calcific plaque involving the left lower extremity arteries but without occlusion. There is mild diffuse subcutaneous edema. Gas density once again noted in the soft tissues of the foot. There has been an interval extension of the amputation now at the tarsal metatarsal junction. Soft tissue gas once again noted at the amputation site. No localized fluid collections are evident. IMPRESSION: 1. Diffuse atheromatous calcification of the aortoiliac and runoff vessels. No significant stenosis at least to the tibial peroneal trunk on the right. The anterior tibial and posterior tibial arteries do appear to be patent to the ankle. Posterior tibial artery appears patent giving rise to a medial plantar artery to the foot. Segmental stenosis involves this plantar vessel. Cannot determine degree of stenosis involving the runoff vessels distal to the tibial peroneal junction secondary to their small size and diffuse calcification. 2. Prior below the knee amputation on the left. 3. No significant change in the lytic lesion of the left ilium with extension to the ischial area/supra-acetabular region with cortical destruction medially. Dictated by: Paul Grace MD 02/01/2021 08:34 Paul Grace MD in [facility] 02/01/2021 08:34
[2021-01-31 09:32] LABS: Reticulocyte % (Auto) 2.4 % (0.9-3.2)
[2021-01-31 09:34] LABS: Iron 13 ug/dL (49-181)
[2021-01-31 09:45] LABS: Total Iron Binding Capacity 226 ug/dL (261-462)
[2021-01-31 12:32] LABS: POC Glucose,Bedside 138 (70-110)
[2021-01-31 15:26] LABS: Gentamicin,Trough 1.8 ug/ml (0.0-2.0)
[2021-01-31 16:09] LABS: POC Glucose,Bedside 134 (70-110)
--- NOTE | 2021-01-31 18:06 | PC.NURSE ---
Pt has been pleasant and cooperative this shift. A&O X4. No complaints of pain or SOA. Pt is currently receiving O2 via NC @ 2 LPM with sats. >90%. Lung sounds reveal expiratory wheezing. Generalized, non-pitting edema noted to BLE. RT foot dressing changed per Podiatry this AM and noted to be C/D/I. LT BKA present. Pt is currently NWB and has not been OOB this shift. Pt uses the urinal and urine is clear/dark-yellow. No BM thus far today. Appetite is good and pt eats the majority of all meals. FSBS results have been 138 and 134. PICC line in the RT upper arm is patent and infusing NS @ 100 ML/HR. VSS. Call light within reach. Will continue to monitor.
[2021-01-31 21:29] LABS: POC Glucose,Bedside 163 (70-110)
--- NOTE | 2021-02-01 01:46 | PC.NURSE ---
He is A&Ox3. He has received PRN pain medication for his back and hips. He is a right limb alert r/t PICC line. PICC line DSG changed via sterile technique. He has home meds in the drawer. He continues on 2LPM n/c.
[2021-02-01 04:00] VITALS: BP 174/71; PULSE 76; RESP 18; TEMP 36.6; O2SAT 98
[2021-02-01 05:48] LABS: POC Glucose,Bedside 111 (70-110)
--- NOTE | 2021-02-01 07:39 | HMH.PNCARD ---
Subjective Date: 02/01/21 Time: 07:39 Principal diagnosis: R Foot I&D, s/p TMA 01/21/21 Interval history: 60-year-old white male at bedside eating breakfast in no acute distress. CTA of the lower extremity yesterday was performed but results are pending at this time. Exam Vital signs and Labs for Last 24 Hours: Temp Pulse Resp BP Pulse Ox 97.9 F 76 18 174/71 H 98 02/01/21 04:00 02/01/21 04:00 02/01/21 04:00 02/01/21 04:00 02/01/21 04:00 Laboratory Results - last 24 hr 01/31/21 05:55: Iron 13 L, TIBC 226 L, Iron Saturation 5.83046 L 01/31/21 05:55: Retic Count (auto) 2.4 01/31/21 12:23: POC Glucose 138 H 01/31/21 14:55: Gentamicin Trough 1.8 01/31/21 15:59: POC Glucose 134 H 01/31/21 20:51: POC Glucose 163 H 02/01/21 05:39: POC Glucose 111 H I & O for Last 24 hours: Intake & Output 01/29/21 01/30/21 01/31/21 02/01/21 11:59 11:59 11:59 11:59 Intake Total 635 / 635 4133 / 4133 4047 / 4047 2157 / 2157 Output Total 300 / 300 850 / 850 2275 / 2275 1100 / 1100 Balance 335 / 335 3283 / 3283 1772 / 1772 1057 / 1057 Microbiology Reports for the Last 24 Hours: Microbiology 01/26/21 17:15 Foot,Right - Right Bone Culture - Final NO GROWTH AFTER 5 DAYS 01/26/21 12:16 Blood - Other Blood Culture - Final NO GROWTH AFTER 5 DAYS 01/26/21 12:16 Blood - Other Blood Culture - Final NO GROWTH AFTER 5 DAYS 01/26/21 17:05 Foot,Right Gram Stain - Final 01/26/21 17:05 Foot,Right Wound Culture - Preliminary - *Routine Respiratory Exam Present: CTA bilaterally - *Routine Cardiovascular Exam Present: RRR - *Routine Extremities Exam Absent: cyanosis, clubbing, edema Comments: RLE bandaged. - *Routine Neurological Exam Present: alert, oriented X3 Progress Note: A&P (1) Dehiscence of incision Status: Acute (2) Wound cellulitis Status: Acute (3) Cellulitis Status: Acute (4) Anemia Status: Acute (5) Type 2 diabetes mellitus with diabetic neuropathy, with long-term current use of insulin Status: Chronic (6) Status post foot surgery Status: Acute (7) History of cancer chemotherapy Status: Acute (8) Postoperative edema Status: Acute (9) Other chronic osteomyelitis, right ankle and foot Status: Acute (10) BMI 45.0-49.9, adult Status: Acute (11) Charcot foot due to diabetes mellitus Status: Acute (12) Near syncope Status: Acute (13) Diabetic ulcer of right midfoot associated with type 2 diabetes mellitus, with fat layer exposed Status: Acute (14) Osteomyelitis of fifth toe of right foot Status: Acute (15) PVD (peripheral vascular disease) Status: Acute (16) Status post incision and drainage Status: Acute (17) History of left below knee amputation Status: Chronic (18) Type 2 diabetes mellitus Status: Chronic (19) Klebsiella infection Status: Acute (20) History of peptic ulcer disease Status: Acute (21) Hypersomnolence Status: Acute Assessment and Plan for All Diagnoses:: 1. Poorly healing wound of RLE. CTA of RLE reviewed with Dr. Liu. No plans for intervention. Medical management only. Continue Xarelto. 2. PAF, back in NSR. On bystolic and xarelto. 3. HTN, was improved over the weekend on 2 beta blockers. Bisoprolol stopped. Will increase bystolic to 10 mg in AM and 20 mg in PM. 4. History of iron deficiency anemia, GI bleed, 01/19/2020 and 06/20/2020 with EGD during the June 2020 admission showing an large, deep prepyloric ulcer. Patient reports repeat EGD at tertiary facility in [place] in August with healed ulcer noted. Xarelto was restarted at that time. Previously on iron supplementation but reportedly discontinued per his oncologist/coil finisher. 5. History of DVT and pulmonary emboli, on long-term Xarelto therapy 6. History of metastatic thyroid cancer with mets t
[2021-02-01 08:00] VITALS: BP 154/79; PULSE 71; RESP 20; TEMP 36.9; O2SAT 93
--- NOTE | 2021-02-01 08:27 | HMH.ORTHPN ---
Subjective Date: 02/01/21 Time: 07:40 Principal diagnosis: R Foot I&D, s/p TMA 01/21/21 Interval history: Patient is resting comfortably sitting at the bedside, eating breakfast. Awake for exam today. Patient denies pain at rest, less pain with touching the right foot. PN: Obj Ex Vital signs: Temp Pulse Resp BP Pulse Ox 97.9 F 76 18 174/71 H 98 02/01/21 04:00 02/01/21 04:00 02/01/21 04:00 02/01/21 04:00 02/01/21 04:00 - Constitutional no acute distress - Routine HEENT Exam Head: Present: normocephalic Eye: Present: EOMI ENT: Present: mucous membranes moist - Routine Neck Exam Present: supple - Routine Respiratory Exam Absent: respiratory distress - Detailed Lower Extremity Exam Leg image: 1 - Ulcer to right medial calf: no drainage and 100% granular wound bed. Site cleaned with betadine and utilizing a 15 blade, curette the ulcer was sharply debrided thru skin into involving subq tissue. Post: 1.5x0.8x0.1cm. Small Polymem dressing applied. Ulcer noted to right medial foot: Utilizing a curette the wound was debrided sharply sharply excisionally through skin into/involving subcu layer. Fibrotic tissue and biofilm was removed. Post: 1.5x0.8x0.3cm. Right anterior ankle and TMA site: sutures and smith intact. Serosanginous drainage noted from suture line of medial TMA. Wound culture taken. Erythema and edema noted. Incision sites are more dusky. Minimal bleeding noted. Site cleaned again, betadine soaked 4x4's dry 4x4's, kerlix and tennille wrap applied. - Routine Skin Exam Present: erythema Progress Note: A&P (1) Dehiscence of incision Status: Acute (2) Wound cellulitis Status: Acute (3) Cellulitis Status: Acute (4) Anemia Status: Acute (5) Type 2 diabetes mellitus with diabetic neuropathy, with long-term current use of insulin Status: Chronic (6) Status post foot surgery Status: Acute (7) History of cancer chemotherapy Status: Acute (8) Postoperative edema Status: Acute (9) Other chronic osteomyelitis, right ankle and foot Status: Acute (10) BMI 45.0-49.9, adult Status: Acute (11) Charcot foot due to diabetes mellitus Status: Acute (12) Near syncope Status: Acute (13) Diabetic ulcer of right midfoot associated with type 2 diabetes mellitus, with fat layer exposed Status: Acute (14) Osteomyelitis of fifth toe of right foot Status: Acute (15) PVD (peripheral vascular disease) Status: Acute (16) Status post incision and drainage Status: Acute (17) History of left below knee amputation Status: Chronic (18) Type 2 diabetes mellitus Status: Chronic (19) Klebsiella infection Status: Acute (20) History of peptic ulcer disease Status: Acute (21) Hypersomnolence Status: Acute Assessment and Plan for All Diagnoses:: 01/26/21- Right foot suture, staple, ERNA drain removal, Right tarsometatarsal amputation (lisfranc disarticulation), Right foot, ankle incision and drainage, Right wound/ulcer debridement x2, Right application of ERNA drain. POD#6 Intra-op specimens: 01/26/21, right metatarsals 2-4 bone pathology: (+) OM, bone with acute osteomyelitis and surrounding soft tissue with necrosis Labs: 01/28/2021: wbc 11.3, hemoglobin 6.7, hematocrit 21.9 01/27/2021: wbc 9.2, hemoglobin 7.4, hematocrit 23.7 01/26/21: ESR >140, CRP 206.3 01/31/21: wbc 9.7, esr >140, crp 255, glucose 127, gfr 98 Microbiology 01/26/21 17:05 Foot,Right - Wound - Final 01/26/21 17:05 Foot,Right Gram Stain - Final 01/26/21 16:22 Ankle,Right Gram Stain - Final 01/26/21 16:22 Ankle,Right Wound Culture - Final Staphylococcus epidermidis 01/26/21 12:16 Blood - Other Blood Culture - Final NO GROWTH AFTER 5 DAYS 01/26/21 17:15 Foot,Right - Right Bone Culture - Preliminary
--- NOTE | 2021-02-01 08:55 | HMH.ACPN2 ---
<YuliaLily - Last Filed: 02/01/21 08:55> Internal Medicine - PN: Subj *Date: 02/01/21 *Time: 08:55 Interval history: Patient denies chest pain, shortness of breath, and foot pain. Dr. Croft has just done dressing changes; please see note as follows: 01/31/21, Plan: -Ulcers were sharply excisionally debridement with a 15 blade, curette at the bedside today. See above. -Maintain dressing clean dry and intact to right foot, reinforce as necessary. -NWB in short fracture boot, wheelchair. -Continue PICC, IV Antibiotics: Dapto 1g, Ertapenem 1g, gentamicin per Pharm dosing/recommendations -Dressing change this am per Podiatry. *Daily dsg changes: cleanse skin with betadine. Apply betadine soaked gauze with dry sterile dressing (kerlix, abd, tennille) to RLE. Apply Polymem to right proximal calf ulcer. -No plans for Podiatry surgery today. Will need further surgery including debridement and application of wound vac (high risk for BKA in future if he does not response to the IV Abx and get increased circulation). -Plan for surgery tomorrow 02/02/21, pending CTA results. CBC is pending at present. Exam Vital signs and Labs for Last 24 Hours: Temp Pulse Resp BP Pulse Ox 97.9 F 76 18 174/71 H 98 02/01/21 04:00 02/01/21 04:00 02/01/21 04:00 02/01/21 04:00 02/01/21 04:00 Laboratory Results - last 24 hr 01/31/21 05:55: Iron 13 L, TIBC 226 L, Iron Saturation 5.29615 L 01/31/21 05:55: Retic Count (auto) 2.4 01/31/21 12:23: POC Glucose 138 H 01/31/21 14:55: Gentamicin Trough 1.8 01/31/21 15:59: POC Glucose 134 H 01/31/21 20:51: POC Glucose 163 H 02/01/21 05:39: POC Glucose 111 H I & O for Last 24 hours: Intake & Output 01/29/21 01/30/21 01/31/21 02/01/21 11:59 11:59 11:59 11:59 Intake Total 635 / 635 4133 / 4133 4047 / 4047 2157 / 2157 Output Total 300 / 300 850 / 850 2275 / 2275 1100 / 1100 Balance 335 / 335 3283 / 3283 1772 / 1772 1057 / 1057 Microbiology Reports for the Last 24 Hours: Microbiology 01/26/21 17:05 Foot,Right Gram Stain - Final 01/26/21 17:05 Foot,Right Wound Culture - Preliminary 01/26/21 17:15 Foot,Right - Right Bone Culture - Final NO GROWTH AFTER 5 DAYS 01/26/21 12:16 Blood - Other Blood Culture - Final NO GROWTH AFTER 5 DAYS 01/26/21 12:16 Blood - Other Blood Culture - Final NO GROWTH AFTER 5 DAYS - Constitutional no acute distress Comments: Seems more awake today. - *Routine Respiratory Exam Present: CTA bilaterally - *Routine Cardiovascular Exam Present: RRR - *Routine Abdominal Exam Present: soft, obese. Absent: tenderness - *Routine Extremities Exam Present: edema (Right lower leg) Comments: Right foot dressing has just been changed per Dr. Croft and is clean and dry - *Routine Neurological Exam Present: alert Seems oriented. Did fall asleep once during conversation. Assessment and Plan (1) Dehiscence of incision Status: Acute Qualifiers: Encounter type: initial encounter Qualified Code(s): T81.31XA - Disruption of external operation (surgical) wound, not elsewhere classified, initial encounter Category: Medical Code(s): T81.31XA - Disruption of external operation (surgical) wound, not elsewhere classified, initial encounter (2) Wound cellulitis Status: Acute Category: Medical Code(s): L03.90 - Cellulitis, unspecified (3) Cellulitis Status: Acute Qualifiers: Site of cellulitis: neck Qualified Code(s): L03.221 - Cellulitis of neck Category: Medical Code(s): L03.90 - Cellulitis, unspecified (4) Anemia Status: Acute Category: Medical Code(s): D64.9 - Anemia, unspecified (5) Type 2 diabetes mellitus with diabetic neuropathy, with long-term current use of insulin Status: Chronic Category: Medical Code(s): E11.40 - Type 2 diabetes mellitus with diabetic neuropathy, unspecified; Z79.4 - L
[2021-02-01 08:56] LABS: Basophils # 0.1 K/mm3 (0-0.2); Basophils % 0.6 % (0.1-2.0); Eosinophils # 0.2 K/mm3 (0.0-0.4); Eosinophils % 2.5 % (0.1-12.0); Hematocrit 24.2 % (42.0-52.0); Lymphocytes # 0.8 K/mm3 (0.7-4.5); Lymphocytes % 7.8 % (10-50); Mean Corpuscular HGB Conc 30.7 g/dL (31.8-35.4); Mean Corpuscular Hemoglobin 26.1 pg (27.0-31.2); Mean Corpuscular Volume 85.1 fl (80-94); Mean Platelet Volume 8.2 fl (7.4-10.4); Monocytes # 0.8 K/mm3 (0.1-1.0); Monocytes % 8.3 % (1.7-9.3); Neutrophils # 7.8 K/mm3 (1.8-7.8); Neutrophils % 80.8 % (37.0-80.0); Platelet Count 475 K/mm3 (142-424); Red Blood Count 2.84 M/mm3 (4.60-6.20); Red Cell Distribution Width 17.7 % (11.5-17.5); White Blood Count 9.7 K/mm3 (4.8-10.8)
[2021-02-01 08:59] LABS: Hemoglobin 7.4 g/dL (14.1-18.0)
[2021-02-01 11:24] LABS: POC Glucose,Bedside 145 (70-110)
[2021-02-01 15:50] LABS: POC Glucose,Bedside 141 (70-110)
--- NOTE | 2021-02-01 15:50 | PC.NURSE ---
Pt has been pleasant and cooperative this shift. A&O X4. Pt has complained of pain X1 and received Percocet per MAR with favorable results. No complaints of SOA. Pt is currently receiving O2 via NC @ 2 LPM with sats. >90%. Lungs CTA. Generalized, non-pitting edema noted to RLE. RT foot dressing changed per Podiatry this AM and noted to be C/D/I. LT BKA present. Pt is currently NWB and has not been OOB this shift. Pt uses the urinal to void and urine is clear/dark-yellow. No BM thus far today. Pt has been instructed to provide a stool sample and a specimen cup is at bedside. Appetite is good and pt eats the majority of all meals. FSBS results have been 145 and 141. PICC line in the RT upper arm is patent and infusing NS @ 100 ML/HR. VSS. Call light within reach. Will continue to monitor.
[2021-02-01 16:00] VITALS: BP 162/65; PULSE 78; RESP 22; TEMP 37.2; O2SAT 95
[2021-02-01 19:21] VITALS: O2SAT 91
[2021-02-01 19:32] LABS: Occult Blood,Stool Negative (Negative)
[2021-02-01 20:00] VITALS: BP 136/67; PULSE 84; RESP 18; TEMP 37.2; O2SAT 93
[2021-02-01 20:32] LABS: POC Glucose,Bedside 155 (70-110)
[2021-02-02] VITALS (17 sets, daily range): BP systolic 112–173; BP diastolic 45–99; PULSE 70–81; RESP 14–22; TEMP 36.2–37.2; O2SAT 92–98
--- NOTE | 2021-02-02 00:14 | PC.NURSE ---
He is NPO. DSG in place on RLE. RLE with 2+ non-pitting edema. He has received PRN medication for back pain. He reports his last BM was on 02/01/21.
[2021-02-02 06:11] LABS: POC Glucose,Bedside 167 (70-110)
[2021-02-02 06:23] LABS: Basophils # 0.1 K/mm3 (0-0.2); Eosinophils # 0.2 K/mm3 (0.0-0.4); Lymphocytes # 0.7 K/mm3 (0.7-4.5); Mean Corpuscular Volume 83.4 fl (80-94)
[2021-02-02 06:26] LABS: Basophils % 0.6 % (0.1-2.0); Eosinophils % 2.3 % (0.1-12.0); Lymphocytes % 8.3 % (10-50); Mean Corpuscular HGB Conc 31.2 g/dL (31.8-35.4); Mean Platelet Volume 8.2 fl (7.4-10.4); Monocytes # 0.8 K/mm3 (0.1-1.0); Monocytes % 8.7 % (1.7-9.3); Neutrophils # 6.9 K/mm3 (1.8-7.8); Platelet Count 527 K/mm3 (142-424); Red Blood Count 2.81 M/mm3 (4.60-6.20); Red Cell Distribution Width 17.6 % (11.5-17.5); White Blood Count 8.7 K/mm3 (4.8-10.8)
[2021-02-02 06:27] LABS: Hematocrit 23.4 % (42.0-52.0); Hemoglobin 7.3 g/dL (14.1-18.0)
[2021-02-02 06:31] LABS: Creatine Kinase 106 U/L (55-170)
[2021-02-02 06:36] LABS: C-Reactive Protein 168.3 mg/L (0-4)
--- NOTE | 2021-02-02 06:41 | PC.NURSE ---
Pt left floor with surgery team at this time.
--- NOTE | 2021-02-02 06:41 | PC.NURSE ---
patient off floor to surgery at this time.
[2021-02-02 06:52] LABS: Erythrocyte Sedimentation Rate > 140 mm/hr (0-20)
--- NOTE | 2021-02-02 07:03 | HMH.OPNOTE ---
Date of procedure: 02/02/21 Pre-op Diagnosis:: 1. Right diabetic foot infection 2. Right foot/ankle gas gangrene 3. Right foot osteomyelitis 4. Right foot non-healing ulcer 5. PAD Post-op Diagnosis:: Same Procedure performed:: 1. Right foot/ankle suture, staple removal 2. Right foot, ankle incision and drainage 3. Right foot wound irrigation and debridement 4. Right TMA flap revision with delayed primary closure 5. Application of Integra wound graft 6. Application of wound vac ([facility]) Surgeon:: June Croft DPM SENIOR SUPPLY CHAIN ANALYST:: Johnathan Urbina Anesthesia: MAC, local (20cc 0.5% marcaine plain) Estimated blood loss (mL): 10 Clinical Note:: Patient is a 60-year-old diabetic male with PAD who has been admitted since 01/26/2021 for a right lower extremity gas infection and osteomyelitis. He has been on daptomycin and Levaquin via PICC line. Pharmacy added gentamicin for coverage. Patient has had multiple surgeries in the last month including fifth toe amputation, partial ray resection and transmetatarsal amputation. Patient does not have adequate blood flow for healing and has a repeat wound breakdown and chronic nonhealing ulceration. He does have a history of a left below-knee amputation in 2015 for left Charcot foot with osteomyelitis and PAD. Patient recently evaluated by his inside account representative at as well as Dr. Liu's team. Medical management advised. No further vascular intervention was planned. Given that patient is high risk for a left below-knee amputation. Discussed all risks and benefits of surgery including but not limited to use of IV and oral antibiotics, prolonged/delayed healing of soft tissue and bone, recurrent soft tissue or bone infection, potential sepsis, high risk for loss of leg, temporary/permanent pain and swelling, CRPS, damage to nerves and blood vessels, DVT/PE, anesthesia complications including . We will proceed with debridement and wound VAC application today. Operative findings:: All wounds were sharply debrided with curette, 15 blade and forceps. Several small superficial arterial ulcer abrasions noted to the thigh and lateral right proximal leg/knee. Wound located to the right medial calf. Post debridement with a sharp curette through skin into/involving subcutaneous tissue wound was 100% granular measured 1.3 x 1.3 x 0.1 cm, no signs of infection. New blistering noted to the right medial heel with dusky near gangrenous changes to the heel as well as the transmetatarsal amputation site. There was an ulceration noted on the anterior medial ankle. Post debridement sharply excisionally through skin with a curette the wound was 100% granular and measured 0.5 x 0.3 x 0.1 cm. The medial foot wound was debrided full-thickness with a 15 blade and forceps through skin subcutaneous tissue into deep fascia. The distal and proximal edges of skin reapproximated with Prolene. Central opening noted 4 x 2 x 0.3 cm deep. The anterior ankle wound was debrided through skin into subcutaneous tissue and into/involving deep fascia. Tendons visible. Post debridement no further purulence malodor or drainage noted. The anterior ankle wound measured 12 x 3 x 0.5 cm. The transmetatarsal amputation site was debrided full-thickness removing necrotic gangrenous tissue. Portion of the flap was resected. Post debridement the dorsal central medial TMA incision was reapproximated andclosed with Prolene. The TMA incisional wound noted laterally was not able to be reapproximated as there was full-thickness exposure through skin subcu into/involving deep fascia, not to bone/cuboid not exposed. Area was sharply excisionally debrided with 15 blade and forceps. The left foot wound post debridement had minimal bleeding and measured 10 x 5 x 0.6 cm deep. Operative note:: On this date and time the patient was deemed an appropriate surgical candidate. With informed consent time patient was transferred from the preoperative holding area to the operating
--- NOTE | 2021-02-02 09:00 | XR_ITS ---
PROCEDURE: XR ANKLE RT MIN 3V CLINICAL INDICATION: Post op I D Follow-up surgery COMPARISON: CR ANKL3 ANKLE-LT-3 VIEWS from 11/02/2015 CR ANKL3 ANKLE-LT-3 VIEWS from 11/16/2015 CR ANKL3 ANKLE-LT-3 VIEWS from 12/14/2015 CR XR ANKLE RT 2V from 01/26/2021 FINDINGS: S/p amputation at the midfoot as previously described not significantly changed. Numerous skin clips are present. There is diffuse vascular calcification. Soft tissue swelling at the distal stump has shown some improvement. Wound VAC is present.. IMPRESSION: Status post midfoot amputation with multiple skin clips and wound VAC Dictated by: Paul Grace MD 02/02/2021 14:25 Paul Grace MD in OV 02/02/2021 14:25
--- NOTE | 2021-02-02 09:45 | HMH.ANESI ---
[facility] Anesthesia Record Part I Intake, IV Amount: 300 Estimated blood loss (mL): 10 Urine output (mL): 0 Blood Pressure: 146/68 SaO2: 93 Pulse Rate: 73 Respiratory Rate: 14 Temperature: 98.9 F Patient is:: Awake Stable to PACU at:: 09:45
[2021-02-02 10:24] LABS: POC Glucose,Bedside 134 (70-110)
[2021-02-02 12:02] LABS: POC Glucose,Bedside 133 (70-110)
--- NOTE | 2021-02-02 15:37 | PC.NURSE ---
patient has been confused intermittently through out the day. at times has a hard time staying awake. assistance provided with urination. dressing remains unchanged. wound vac continues to work. rings out as needed. some pain noted. bp has been on higher side. heart rate 60-80s. mostly nsr, with some pacs. vitals stable
--- NOTE | 2021-02-02 16:31 | HMH.ACPN2 ---
<Lily Bender - Last Filed: 02/02/21 16:31> Internal Medicine - PN: Subj *Date: 02/02/21 *Time: 16:31 Interval history: Patient was in surgery this a.m. and am seeing him this p.m. postoperatively. Dr. Croft performed the following procedure today 02/02/2021: Procedure performed:: 1. Right foot/ankle suture, staple removal 2. Right foot, ankle incision and drainage 3. Right foot wound irrigation and debridement 4. Right TMA flap revision with delayed primary closure 5. Application of Integra wound graft 6. Application of wound vac ([facility]) Surgeon:: June Croft DPM She also noted with the following: Discussed discharge with care management, Aminah Perez. Patient's is unable to care for him at this level. He will need IV antibiotics and wound VAC changes at the time of discharge. In my opinion patient has the best chance of left lower extremity limb salvage if he goes to rehab placement. He is high risk for a below-knee amputation. Patient stable from Podiatry stand point for discharge. If patient has not been discharged, Podiatry will change wound vac Sunday. SNF Orders: -Maintain dressing and wound vac clean dry and intact to right foot, reinforce as necessary. -NWB in short fracture boot, wheelchair. -PICC, IV Abx -Wound vac dressing changes on MWF. Cleanse skin with saline. Dry. Betadine soaked gauze to open wounds. Apply wound vac to the right lateral foot @125mmHg medium continuous pressure. -Will need follow up with [facility] (Arjun Solomon), Infectious Disease and Podiatry Condition: stable At time of this exam patient remains drowsy. He does respond readily. He states his right leg is sore. This a.m. hemoglobin was 7.3 with hematocrit of 23.4. Blood sugars have been stable. C-reactive protein is elevated at 168.3 Exam Vital signs and Labs for Last 24 Hours: Temp Pulse Resp BP Pulse Ox 97.2 F L 79 16 170/65 H 94 L 02/02/21 14:30 02/02/21 14:30 02/02/21 14:30 02/02/21 14:30 02/02/21 14:30 Laboratory Results - last 24 hr 01/31/21 18:30: Stool Occult Blood Negative 02/01/21 20:00: POC Glucose 155 H 02/02/21 05:58: POC Glucose 167 H 02/02/21 06:16: WBC 8.7, RBC 2.81 L, Hgb 7.3 L*, Hct 23.4 L*, MCV 83.4, MCH 26.0 L, MCHC 31.2 L, RDW 17.6 H, Plt Count 527 H, MPV 8.2, Neut % (Auto) 80.0, Lymph % (Auto) 8.3 L, [place] % (Auto) 8.7, Eos % (Auto) 2.3, Baso % (Auto) 0.6, Neut # (Auto) 6.9, Lymph # (Auto) 0.7, [place] # (Auto) 0.8, Eos # (Auto) 0.2, Baso # (Auto) 0.1, ESR > 140 H 02/02/21 06:16: Total Creatine Kinase 106, C-Reactive Protein 168.3 H 02/02/21 10:08: POC Glucose 134 H 02/02/21 11:29: POC Glucose 133 H I & O for Last 24 hours: Intake & Output 01/31/21 02/01/21 02/02/21 02/03/21 11:59 11:59 11:59 11:59 Intake Total 4047 / 4047 2637 / 2637 1716 / 1716 Output Total 2275 / 2275 1100 / 1100 600 / 600 Balance 1772 / 1772 1537 / 1537 1116 / 1116 Microbiology Reports for the Last 24 Hours: Microbiology 02/02/21 07:44 Ankle,Right Gram Stain - Final 01/26/21 16:22 Ankle,Right - Final 01/26/21 16:22 Ankle,Right - Final - Constitutional no acute distress Comments: Lethargic but awakens easily. Speech is clear. - *Routine Respiratory Exam Present: CTA bilaterally - *Routine Cardiovascular Exam Present: RRR (Monitor showing sinus rhythm in the 70s) - *Routine Abdominal Exam Present: normoactive bowel sounds, obese. Absent: tenderness - *Routine Extremities Exam Present: edema Comments: Right lower leg with dressing with Tian coverage to the knee. - *Routine Neurological Exam Present: alert Lethargic Assessment and Plan (1) Dehiscence of incision Status: Acute Qualifiers: Encounter type: initial encounter Qualified Code(s): T81.31XA - Disruption of external operation (surgical) wound, not elsewhere classified, initial encounter Category: Medical Code(s): T81.31XA - Disruption of external operation (surgical) wound, not elsew
[2021-02-02 17:14] LABS: POC Glucose,Bedside 148 (70-110)
[2021-02-02 21:17] LABS: POC Glucose,Bedside 156 (70-110)
[2021-02-03] VITALS (21 sets, daily range): BP systolic 109–179; BP diastolic 40–84; PULSE 70–87; RESP 16–22; TEMP 36.4–37.3; O2SAT 90–99
--- NOTE | 2021-02-03 03:53 | PC.NURSE ---
A&OX4. TOLERATING RA WELL. PT IS X2-3 ASSIST IN BED. RECEIVED BED BATH. LEFT BKA PRESENT. DRESSING AND WOUND VAC PRESENT TO R FOOT. CDI. ELEVATED T/O SHIFT. PT C/O PAIN TO RLE X2, TREATED PER AUG. ON REASSESSMENT, PT RESTING IN BED COMFORTABLY. NO OTHER C/O AT THIS TIME, VSS WILL CONTINUE TO MONITOR.
[2021-02-03 05:30] LABS: POC Glucose,Bedside 133 (70-110)
[2021-02-03 06:04] LABS: Basophils # 0.1 K/mm3 (0-0.2); Basophils % 0.8 % (0.1-2.0); Eosinophils # 0.2 K/mm3 (0.0-0.4); Eosinophils % 1.7 % (0.1-12.0); Lymphocytes # 0.7 K/mm3 (0.7-4.5); Lymphocytes % 7.3 % (10-50); Mean Corpuscular HGB Conc 31.1 g/dL (31.8-35.4); Mean Corpuscular Hemoglobin 25.8 pg (27.0-31.2); Mean Corpuscular Volume 83.1 fl (80-94); Mean Platelet Volume 8.4 fl (7.4-10.4); Monocytes # 0.6 K/mm3 (0.1-1.0); Monocytes % 6.7 % (1.7-9.3); Neutrophils # 7.5 K/mm3 (1.8-7.8); Neutrophils % 83.4 % (37.0-80.0); Platelet Count 545 K/mm3 (142-424); Red Blood Count 2.73 M/mm3 (4.60-6.20); Red Cell Distribution Width 17.8 % (11.5-17.5)
[2021-02-03 06:05] LABS: Hematocrit 22.7 % (42.0-52.0); Hemoglobin 7.1 g/dL (14.1-18.0)
[2021-02-03 06:11] LABS: C-Reactive Protein 140.8 mg/L (0-4)
--- NOTE | 2021-02-03 06:13 | PC.NURSE ---
CRITICAL H&H FROM LAB. VERIFIED NAME, , AND ROOM NUMBER WITH LAB.
[2021-02-03 06:37] LABS: Erythrocyte Sedimentation Rate > 140 mm/hr (0-20)
--- NOTE | 2021-02-03 08:06 | HMH.ORTHPN ---
Subjective Date: 02/03/21 <Daian Antonio - 02/03/21 08:26> Time: 08:06 <Daina Antonio - 02/03/21 08:26> Principal diagnosis: R Foot I&D, s/p TMA 01/21/21 <Daina Antonio - 02/03/21 08:26> Interval history: Patient is resting comfortably in the bed this morning he just completed eating breakfast he is awake for the exam today and is somewhat drowsy was medicated 10 minutes prior to me coming in with some morphine IV for pain. Patient denies any leg cramps and denies pain with touching the right foot and upper legs. Patient does have wound VAC in place does appear to be some drainage already accumulating in the canister. Dressing remains clean dry and intact. Plan to change wound VAC dressing tomorrow on a.m. rounds. Discussed with the patient and nurse that was at bedside about getting him into a different bed, this bed is a little uncomfortable for him he states is hurting his back. RN is going to check into getting him in a bariatric bed. <MariselaChristineDaina L - 02/03/21 08:27> PN: Obj Ex Vital signs: Temp Pulse Resp BP Pulse Ox 97.9 F 84 18 148/67 H 97 02/03/21 08:00 02/03/21 08:00 02/03/21 08:00 02/03/21 08:00 02/03/21 08:00 <June Croft - 02/03/21 09:21> Temp Pulse Resp BP Pulse Ox 98.9 F 78 16 142/63 H 93 L 02/03/21 04:00 02/03/21 04:00 02/03/21 04:00 02/03/21 04:00 02/03/21 04:00 <MariselaRocioDaina L - 02/03/21 08:26> - Constitutional no acute distress, obese, cooperative <Daina Antonio - 02/03/21 08:26> - Routine HEENT Exam Head: Present: normocephalic <Daina Antonio 02/03/21 08:26> Eye: Present: EOMI <Daina Antonio 02/03/21 08:26> ENT: Present: mucous membranes moist <Daina Antonio - 02/03/21 08:26> - Routine Neck Exam Present: supple <Daina Antonio - 02/03/21 08:26> - Routine Respiratory Exam Absent: respiratory distress <Daina Antonio - 02/03/21 08:26> - Routine Extremities Exam Absent: calf tenderness <Daina Antonio - 02/03/21 08:26> Comments: Wound vac placed to Right TMA site <Daina Antonio - 02/03/21 08:26> - Detailed Lower Extremity Exam Leg image: 1 - Ulcer to right medial calf: no drainage and 100% granular wound bed. Site was cleaned and dressed during surgery yesterday, plan for dressing changes tomorrow. S/P 02/02/21- Right foot/ankle suture, staple removal Right foot, ankle incision and drainage, Right foot wound irrigation and debridement, Right TMA flap revision with delayed primary closure, Application of Integra wound graft, [facility] Plan for wound vac dressing change Sunday. <Daina Antonio - 02/03/21 08:26> - Routine Skin Exam Present: erythema <Daina Antonio - 02/03/21 08:26> - Routine Neurological Exam Present: alert, vision grossly intact, hearing grossly intact, normal speech <Daina Antonio 02/03/21 08:26> - Routine Psychiatric Exam Present: cooperative <Daina Antonio - 02/03/21 08:26> Progress Note: A&P (1) Dehiscence of incision Status: Acute (2) Wound cellulitis Status: Acute (3) Cellulitis Status: Acute (4) Anemia Status: Acute (5) Type 2 diabetes mellitus with diabetic neuropathy, with long-term current use of insulin Status: Chronic (6) Status post foot surgery Status: Acute (7) History of cancer chemotherapy Status: Acute (8) Postoperative edema Status: Acute (9) Other chronic osteomyelitis, right ankle and foot Status: Acute (10) BMI 45.0-49.9, adult Status: Acute (11) Charcot foot due to diabetes mellitus Status: Acute (12) Near syncope Status: Acute (13) Diabetic ulcer of right midfoot associated with type 2 diabetes mellitus, with fat layer exposed Status: Acute (14) Osteomyelitis of fifth toe of right foot Status: Acute (15) PVD (peripheral vascular disease) Status: Acute
--- NOTE | 2021-02-03 08:25 | HMH.ACPN2 ---
<Destiny Farah - Last Filed: 02/03/21 08:25> Internal Medicine - PN: Subj *Date: 02/03/21 *Time: 08:25 Interval history: Patient states he is feeling a bit better today. He is more awake and alert. He states he only has minimal pain in his right foot. Orthopedics is following. He had a wound VAC placed and is tolerating this well. He states he slept better last night. Exam Vital signs and Labs for Last 24 Hours: Temp Pulse Resp BP Pulse Ox 98.9 F 78 16 142/63 H 93 L 02/03/21 04:00 02/03/21 04:00 02/03/21 04:00 02/03/21 04:00 02/03/21 04:00 Laboratory Results - last 24 hr 02/02/21 10:08: POC Glucose 134 H 02/02/21 11:29: POC Glucose 133 H 02/02/21 16:48: POC Glucose 148 H 02/02/21 20:11: POC Glucose 156 H 02/03/21 05:16: POC Glucose 133 H 02/03/21 05:45: WBC 9.0, RBC 2.73 L, Hgb 7.1 L*, Hct 22.7 L*, MCV 83.1, MCH 25.8 L, MCHC 31.1 L, RDW 17.8 H, Plt Count 545 H, MPV 8.4, Neut % (Auto) 83.4 H, Lymph % (Auto) 7.3 L, [place] % (Auto) 6.7, Eos % (Auto) 1.7, Baso % (Auto) 0.8, Neut # (Auto) 7.5, Lymph # (Auto) 0.7, [place] # (Auto) 0.6, Eos # (Auto) 0.2, Baso # (Auto) 0.1, ESR > 140 H 02/03/21 05:45: C-Reactive Protein 140.8 H I & O for Last 24 hours: Intake & Output 01/31/21 02/01/21 02/02/21 02/03/21 11:59 11:59 11:59 11:59 Intake Total 4047 / 4047 2637 / 2637 1716 / 1716 1932 / 1932 Output Total 2275 / 2275 1100 / 1100 600 / 600 1225 / 1225 Balance 1772 / 1772 1537 / 1537 1116 / 1116 707 / 707 Microbiology Reports for the Last 24 Hours: Microbiology 01/26/21 17:05 Foot,Right Gram Stain - Final 01/26/21 17:05 Foot,Right Wound Culture - Final Klebsiella oxytoca 02/02/21 07:44 Ankle,Right Gram Stain - Final 01/26/21 16:22 Ankle,Right - Final 01/26/21 16:22 Ankle,Right - Final - Constitutional no acute distress - *Routine Respiratory Exam Present: CTA bilaterally - *Routine Cardiovascular Exam Present: RRR - *Routine Abdominal Exam Present: soft, normoactive bowel sounds. Absent: tenderness - *Routine Extremities Exam Absent: cyanosis, clubbing, edema Comments: Right lower extremity with dressing and wound VAC in place - *Routine Skin Exam Present: pallor, warm. Absent: rash - *Routine Neurological Exam Present: alert, oriented X3 Assessment and Plan (1) Dehiscence of incision Status: Acute Category: Medical Code(s): T81.31XA - Disruption of external operation (surgical) wound, not elsewhere classified, initial encounter (2) Wound cellulitis Status: Acute Category: Medical Code(s): L03.90 - Cellulitis, unspecified (3) Cellulitis Status: Acute Category: Medical Code(s): L03.90 - Cellulitis, unspecified (4) Anemia Status: Acute Category: Medical Code(s): D64.9 - Anemia, unspecified (5) Type 2 diabetes mellitus with diabetic neuropathy, with long-term current use of insulin Status: Chronic Category: Medical Code(s): E11.40 - Type 2 diabetes mellitus with diabetic neuropathy, unspecified; 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 (6) Status post foot surgery Status: Acute Category: Surgical Code(s): Z98.890 - Other specified postprocedural states (7) History of cancer chemotherapy Status: Acute Category: Medical Code(s): Z92.21 - Personal history of antineoplastic chemotherapy (8) Postoperative edema Status: Acute Category: Medical Code(s): R60.9 - Edema, unspecified (9) Other chronic osteomyelitis, right ankle and foot Status: Acute Category: Medical Code(s): M86.671 - Other chronic osteomyelitis, right ankle and foot (10) BMI 45.0-49.9, adult Status: Acute Category: Medical Code(s): Z68.42 - Body mass index [BMI] 45.0-49.9, adult (11) Charcot foot due to diabetes mellitus Status: Acute Category: Medical Code(s): E11.610 - Type 2 diabetes mellitus with diabetic neuropathic arthropathy (12) Near syncope Status: Acute Category: Medica
[2021-02-03 12:30] LABS: POC Glucose,Bedside 165 (70-110)
--- NOTE | 2021-02-03 14:16 | PC.NURSE ---
Unable to obtain a 2nd IV on patient. Dr Pandya notified and he states its ok to transfuse 1 unit of prbc's, then transfuse the antibiotics. Once antibiotics are complete 2nd unit of blood can be transfused. Pharmacy notified antibiotics will be late.
[2021-02-03 17:29] LABS: POC Glucose,Bedside 135 (70-110)
--- NOTE | 2021-02-03 17:54 | PC.NURSE ---
OK per Dr Pandya to temporarily hold the 2nd unit of prbc's due to catching up on patients antibiotics. Pharmacy notified that antibiotics are late due to transfusing a unit of PRBC's.
[2021-02-03 22:00] LABS: POC Glucose,Bedside 198 (70-110)
[2021-02-04] VITALS (11 sets, daily range): BP systolic 122–159; BP diastolic 40–83; PULSE 71–81; RESP 17–20; TEMP 36.7–37.7; O2SAT 95–100
--- NOTE | 2021-02-04 03:08 | PC.NURSE ---
Patient is alert & oriented x4. He has had complaints of pain in right lower extremity at around 2300 Patients dressing to right lower extremity is clean, dry and intact. Wound vac noted to have some drainage in container. Patient had a blood transfusion this shift and tolerated it well. Patient has rested well during the night. Vital signs are stable, will continue to monitor, call light within reach.
[2021-02-04 04:43] LABS: Hematocrit 25.3 % (42.0-52.0)
[2021-02-04 04:48] LABS: Hemoglobin 8.3 g/dL (14.1-18.0)
--- NOTE | 2021-02-04 05:13 | PC.NURSE ---
PT weight is unable to be obtained at this time due to PT being in a non weigh bed and is unable to stand.
[2021-02-04 05:19] LABS: POC Glucose,Bedside 100 (70-110)
--- NOTE | 2021-02-04 08:34 | HMH.ACPN2 ---
<Destiny Farah - Last Filed: 02/04/21 08:34> Internal Medicine - PN: Subj *Date: 02/04/21 *Time: 08:34 Interval history: Patient states he feels about the same today. His is concerned because he was calling her in the middle of the night and seemed confused. She would like a urinalysis checked. He did get blood yesterday and his H&H improved but is still 8.3 and 25.3. His wound culture grew out Klebsiella oxytoca. Exam Vital signs and Labs for Last 24 Hours: Temp Pulse Resp BP Pulse Ox 99.8 F H 80 20 138/65 96 02/04/21 08:00 02/04/21 08:00 02/04/21 08:00 02/04/21 08:00 02/04/21 08:00 Laboratory Results - last 24 hr 02/03/21 10:11: Blood Type O Positive, Antibody Screen Negative, Crossmatch (AHG) See Detail 02/03/21 11:59: POC Glucose 165 H 02/03/21 16:53: POC Glucose 135 H 02/03/21 19:54: POC Glucose 198 H 02/04/21 04:20: Hgb 8.3 L D, Hct 25.3 L 02/04/21 05:13: POC Glucose 100 I & O for Last 24 hours: Intake & Output 02/01/21 02/02/21 02/03/21 02/04/21 11:59 11:59 11:59 11:59 Intake Total 2637 / 2637 1716 / 1716 2172 / 2172 2054 / 2054 Output Total 1100 / 1100 600 / 600 1225 / 1225 650 / 650 Balance 1537 / 1537 1116 / 1116 947 / 947 1405 / 1405 Microbiology Reports for the Last 24 Hours: Microbiology 02/02/21 07:44 Ankle,Right - Final 02/02/21 07:44 Ankle,Right Gram Stain - Final 02/02/21 07:44 Ankle,Right Surgical Biopsy Culture - Preliminary NO GROWTH AFTER 24 HOURS 02/02/21 07:44 Ankle,Right Gram Stain - Final 02/02/21 07:44 Ankle,Right Wound Culture - Preliminary NO GROWTH AFTER 24 HOURS 01/26/21 17:05 Foot,Right Gram Stain - Final 01/26/21 17:05 Foot,Right Wound Culture - Final Klebsiella oxytoca - Constitutional no acute distress - *Routine Respiratory Exam Present: CTA bilaterally - *Routine Cardiovascular Exam Present: RRR - *Routine Abdominal Exam Present: soft, normoactive bowel sounds. Absent: tenderness - *Routine Extremities Exam Present: edema (mild RLE). Absent: cyanosis, clubbing - *Routine Skin Exam Present: warm Comments: Right lower leg has dressing and wound VAC in place with some drainage on the bandages - *Routine Neurological Exam Present: alert, oriented X3 Assessment and Plan (1) Dehiscence of incision Status: Acute Qualifiers: Encounter type: initial encounter Qualified Code(s): T81.31XA - Disruption of external operation (surgical) wound, not elsewhere classified, initial encounter Category: Medical Code(s): T81.31XA - Disruption of external operation (surgical) wound, not elsewhere classified, initial encounter (2) Wound cellulitis Status: Acute Category: Medical Code(s): L03.90 - Cellulitis, unspecified (3) Cellulitis Status: Acute Qualifiers: Site of cellulitis: neck Qualified Code(s): L03.221 - Cellulitis of neck Category: Medical Code(s): L03.90 - Cellulitis, unspecified (4) Anemia Status: Acute Category: Medical Code(s): D64.9 - Anemia, unspecified (5) Type 2 diabetes mellitus with diabetic neuropathy, with long-term current use of insulin Status: Chronic Category: Medical Code(s): E11.40 - Type 2 diabetes mellitus with diabetic neuropathy, unspecified; Z79.4 - halfway (current) use of insulin (6) Status post foot surgery Status: Acute Category: Surgical Code(s): Z98.890 - Other specified postprocedural states (7) History of cancer chemotherapy Status: Acute Category: Medical Code(s): Z92.21 - Personal history of antineoplastic chemotherapy (8) Postoperative edema Status: Acute Category: Medical Code(s): R60.9 - Edema, unspecified (9) Other chronic osteomyelitis, right ankle and foot Status: Acute Category: Medical Code(s): M86.671 - Other chronic osteomyelitis, right ankle and foot (10) BMI 45.0-49.9, adult Statu
--- NOTE | 2021-02-04 10:12 | HMH.ORTHPN ---
Subjective Date: 02/04/21 Time: 08:05 Principal diagnosis: R Foot I&D, s/p TMA 01/21/21 Interval history: Patient resting comfortable in bed. Reports some pain with anterior ankle palpation. Denies N/V, F/C. PN: Obj Ex Vital signs: Temp Pulse Resp BP Pulse Ox 99.8 F H 80 20 138/65 96 02/04/21 08:00 02/04/21 08:00 02/04/21 08:00 02/04/21 08:00 02/04/21 08:00 - Constitutional no acute distress - Routine HEENT Exam Head: Present: normocephalic - Routine Abdominal Exam Present: obese - Routine Extremities Exam Present: edema - Detailed Lower Extremity Exam Leg image: 1 - Wound located to the right medial calf. Post debridement with a sharp curette through skin into/involving subcutaneous tissue wound was 100% granular measured 1.2 x 1.2 x 0.1 cm, no signs of infection. Ulcer now where blistering noted to the right medial heel with dusky near gangrenous changes to the heel as well as the transmetatarsal amputation site. The In[place]ra graft is secure with smith to the anterior ankle, over plantar TMA site. Wound vac was applied over graft sites x2 and over the right lateral foot. Progress Note: A&P (1) Dehiscence of incision Status: Acute (2) Wound cellulitis Status: Acute (3) Cellulitis Status: Acute (4) Anemia Status: Acute (5) Type 2 diabetes mellitus with diabetic neuropathy, with long-term current use of insulin Status: Chronic (6) Status post foot surgery Status: Acute (7) History of cancer chemotherapy Status: Acute (8) Postoperative edema Status: Acute (9) Other chronic osteomyelitis, right ankle and foot Status: Acute (10) BMI 45.0-49.9, adult Status: Acute (11) Charcot foot due to diabetes mellitus Status: Acute (12) Near syncope Status: Acute (13) Diabetic ulcer of right midfoot associated with type 2 diabetes mellitus, with fat layer exposed Status: Acute (14) Osteomyelitis of fifth toe of right foot Status: Acute (15) PVD (peripheral vascular disease) Status: Acute (16) Status post incision and drainage Status: Acute (17) History of left below knee amputation Status: Chronic (18) Type 2 diabetes mellitus Status: Chronic (19) Klebsiella infection Status: Acute (20) History of peptic ulcer disease Status: Acute (21) Hypersomnolence Status: Acute Assessment and Plan for All Diagnoses:: S/P 02/02/21 Right foot/ankle suture, staple removal, Right foot, ankle incision and drainage, Right foot wound irrigation and debridement, Right TMA flap revision with delayed primary closure, Application of Integra wound graft, Application of wound vac ([employer]). POD#2 02/02/21, intra-op specimens: pending Right ankle wound culture, right foot tissue culture Microbiology 02/02/21 07:44 Ankle,Right Gram Stain - Final 02/02/21 07:44 Ankle,Right - Final 01/26/21 17:15 Foot,Right - Right Bone Culture - Final NO GROWTH AFTER 5 DAYS 01/26/21 17:05 Foot,Right Gram Stain - Final 01/26/21 17:05 Foot,Right Wound Culture - Final Klebsiella oxytoca 01/26/21 16:22 Ankle,Right Gram Stain - Final 01/26/21 16:22 Ankle,Right Wound Culture - Final Staphylococcus epidermidis 02/02/21 07:44 Ankle,Right Wound Culture - Preliminary NO GROWTH AFTER 24 HOURS Plan: -Wound vac dressing change today. 125mmHg medium continous. -Right medial calf ulcer sharply debrided with curette. See skin PE. -Continue PICC, IV Antibiotics: Dapto 1g, Ertapenem 1g x 6 wks -Patient needs to follow-up with infectious disease. -Discussed discharge with care management, Aminah Perez. Patient's is unable to care for him at this level. He will need IV antibiotics and wound VAC changes at the time of dischar
[2021-02-04 11:25] LABS: POC Glucose,Bedside 160 (70-110)
[2021-02-04 16:45] LABS: POC Glucose,Bedside 122 (70-110)
[2021-02-04 16:55] LABS: Microscopic, Urine URINE MICROSCOPIC (MICROSCOPIC)
[2021-02-04 17:06] LABS: Appearance,Urine CLEAR (Clear); Bilirubin,Urine Negative (Negative); Blood, Urine Negative (Negative); Color,Urine YELLOW (Yellow); Glucose,Urine (UA) Negative (Negative); Ketones,Urine Negative (Negative); Leukocyte Esterase,Urine Negative (Negative); Nitrate,Urine Negative (Negative); PH,Urine 5.5 (5.0-8.5); Protein,Urine Negative (Negative); Specific Gravity, Urine 1.025 (1.005-1.030); Urobilinogen,Urine 0.2 EU/dl (0.2)
[2021-02-04 17:16] LABS: Bacteria,Urine Trace /lpf; RBC,Urine Occasional #/hpf (0-3)
--- NOTE | 2021-02-04 17:22 | PC.NURSE ---
Pt has been pleasant and cooperative this shift. A&O X4. No complaints of pain or SOA. Pt is currently on room air with sats. >90%. Lungs CTA. No edema noted. RT foot wound vac dressing changed per Podiatry this AM and noted to be C/D/I. LT BKA present. Pt is currently NWB and has not been OOB this shift. Pt uses the urinal to void and urine is clear/dark-yellow. 1 small, soft, brown BM this shift. Appetite is fair and pt eats about half of all meals. FSBS results have been 160 and 122. PICC line in the RT upper arm is patent and infusing NS @ 100 ML/HR. VSS. Call light within reach. Will continue to monitor.
[2021-02-04 21:50] LABS: POC Glucose,Bedside 146 (70-110)
[2021-02-05 04:00] VITALS: BP 140/67; PULSE 72; RESP 16; TEMP 37; O2SAT 92
--- NOTE | 2021-02-05 04:01 | PC.NURSE ---
Received report from edith pride rn at 0100. Pt. c/o r foot pain as throbbing; tx with morphine; effectiveness noted. No c/o n/v/d, dizziness or soa. Dsg to r foot c/d/i; wound vac in place. No further changes since previous assessment.
[2021-02-05 06:06] LABS: Basophils # 0.1 K/mm3 (0-0.2); Basophils % 0.8 % (0.1-2.0); Eosinophils # 0.2 K/mm3 (0.0-0.4); Lymphocytes # 0.7 K/mm3 (0.7-4.5); Monocytes # 0.7 K/mm3 (0.1-1.0); Neutrophils # 6.3 K/mm3 (1.8-7.8); Neutrophils % 79.6 % (37.0-80.0)
[2021-02-05 06:09] LABS: POC Glucose,Bedside 114 (70-110)
[2021-02-05 06:20] LABS: Eosinophils % 2.5 % (0.1-12.0); Lymphocytes % 8.4 % (10-50); Mean Corpuscular HGB Conc 31.5 g/dL (31.8-35.4); Mean Corpuscular Hemoglobin 26.1 pg (27.0-31.2); Mean Corpuscular Volume 82.9 fl (80-94); Monocytes % 8.6 % (1.7-9.3); Platelet Count 530 K/mm3 (142-424); Red Blood Count 3.01 M/mm3 (4.60-6.20); Red Cell Distribution Width 17.5 % (11.5-17.5); White Blood Count 7.9 K/mm3 (4.8-10.8)
[2021-02-05 06:21] LABS: Alanine Aminotransferase 16 U/L (12-78); Albumin Level 2.8 g/dl (3.5-5.0); Albumin/Globulin Ratio 0.9 (1.1-1.8); Alkaline Phosphatase 165 U/L (38-126); Anion Gap 12.5 mEq/L (5-15); Aspartate Amino Transferase 24 U/L (17-59); Bilirubin,Total 0.5 mg/dl (0.2-1.3); Blood Urea Nitrogen 13 mg/dl (9-20); Calcium 7.8 mg/dl (8.4-10.2); Carbon Dioxide 24 mmol/L (22.0-30.0); Chloride 104 mmol/L (98-107); Creatinine Clearance Estimated 92 mL/min (50-200); Estimated Glomerular Filt Rate 114 ml/min (>60); GFR (African American) 138 ML/MIN (>60); Globulin 3.2 g/dL (1.3-3.2); Glucose 100 mg/dl (74-100); Potassium 3.5 mmoL/L (3.5-5.1); Sodium 137 mmol/L (136-145)
[2021-02-05 06:23] LABS: Hemoglobin 7.9 g/dL (14.1-18.0)
[2021-02-05 08:00] VITALS: BP 105/46; PULSE 77; RESP 19; TEMP 37; O2SAT 96
--- NOTE | 2021-02-05 09:32 | HMH.ACPN2 ---
<Destiny Farah - Last Filed: 02/05/21 09:32> Internal Medicine - PN: Subj *Date: 02/05/21 *Time: 09:32 Interval history: Patient has no new complaints today. The pain in his foot is controlled. He slept well last night and ate well this morning. Exam Vital signs and Labs for Last 24 Hours: Temp Pulse Resp BP Pulse Ox 98.6 F 77 19 105/46 L 96 02/05/21 08:00 02/05/21 08:00 02/05/21 08:00 02/05/21 08:00 02/05/21 08:00 Laboratory Results - last 24 hr 02/04/21 11:06: POC Glucose 160 H 02/04/21 16:30: Urine Color Yellow, Urine Appearance Clear, Urine pH 5.5, Ur Specific [place] 1.025, Urine Protein Negative, Urine Glucose (UA) Negative, Urine Ketones Negative, Urine Blood Negative, Urine Nitrate Negative, Urine Bilirubin Negative, Urine Urobilinogen 0.2, Ur Leukocyte Esterase Negative, Urine RBC Occasional, Urine WBC 3-5, Ur Squamous Epith Cells 3-5, Urine Bacteria Trace 02/04/21 16:34: POC Glucose 122 H 02/04/21 20:08: POC Glucose 146 H 02/05/21 05:48: WBC 7.9, RBC 3.01 L, Hgb 7.9 L*, Hct 25.0 L, MCV 82.9, MCH 26.1 L, MCHC 31.5 L, RDW 17.5, Plt Count 530 H, MPV 8.0, Neut % (Auto) 79.6, Lymph % (Auto) 8.4 L, [place] % (Auto) 8.6, Eos % (Auto) 2.5, Baso % (Auto) 0.8, Neut # (Auto) 6.3, Lymph # (Auto) 0.7, [place] # (Auto) 0.7, Eos # (Auto) 0.2, Baso # (Auto) 0.1 02/05/21 05:48: Sodium 137, Potassium 3.5, Chloride 104, Carbon Dioxide 24, Anion Gap 12.5, BUN 13, Creatinine 0.70, Estimated Creat Clear 92, Estimated GFR 114, Est GFR ( Amer) 138, Glucose 100, Calcium 7.8 L, Total Bilirubin 0.5, AST 24, ALT 16, Alkaline Phosphatase 165 H, Total Protein 6.0 L, Albumin 2.8 L, Globulin 3.2, Albumin/Globulin Ratio 0.9 L 02/05/21 05:51: POC Glucose 114 H I & O for Last 24 hours: Intake & Output 02/02/21 02/03/21 02/04/21 02/05/21 11:59 11:59 11:59 11:59 Intake Total 1716 / 1716 2172 / 2172 2055 / 2055 2486 / 2486 Output Total 600 / 600 1225 / 1225 650 / 650 650 / 650 Balance 1116 / 1116 947 / 947 1405 / 1405 1836 / 1836 Microbiology Reports for the Last 24 Hours: Microbiology 02/02/21 07:44 Ankle,Right Gram Stain - Final 02/02/21 07:44 Ankle,Right Surgical Biopsy Culture - Preliminary NO GROWTH AFTER 48 HOURS 02/02/21 07:44 Ankle,Right Gram Stain - Final 02/02/21 07:44 Ankle,Right Wound Culture - Preliminary NO GROWTH AFTER 48 HOURS - Constitutional no acute distress - *Routine Respiratory Exam Present: CTA bilaterally - *Routine Cardiovascular Exam Present: RRR - *Routine Abdominal Exam Present: soft, normoactive bowel sounds. Absent: tenderness - *Routine Extremities Exam Present: edema (RLE with some edema, wrapped in bandage with wound vac in place). Absent: cyanosis, clubbing - *Routine Skin Exam Present: warm. Absent: rash - *Routine Neurological Exam Present: alert, oriented X3 Assessment and Plan (1) Dehiscence of incision Status: Acute Qualifiers: Encounter type: initial encounter Qualified Code(s): T81.31XA - Disruption of external operation (surgical) wound, not elsewhere classified, initial encounter Category: Medical Code(s): T81.31XA - Disruption of external operation (surgical) wound, not elsewhere classified, initial encounter (2) Wound cellulitis Status: Acute Category: Medical Code(s): L03.90 - Cellulitis, unspecified (3) Cellulitis Status: Acute Qualifiers: Site of cellulitis: neck Qualified Code(s): L03.221 - Cellulitis of neck Category: Medical Code(s): L03.90 - Cellulitis, unspecified (4) Anemia Status: Acute Category: Medical Code(s): D64.9 - Anemia, unspecified (5) Type 2 diabetes mellitus with diabetic neuropathy, with long-term current use of insulin Status: Chronic Category: Medical Code(s): E11.40 - Type 2 diabetes mellitus with diabetic neuropathy, unspecified; Z79.4 - 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
[2021-02-05 12:20] LABS: POC Glucose,Bedside 126 (70-110)
[2021-02-05 15:21] LABS: Gentamicin,Trough 1.4 ug/ml (0.0-2.0)
[2021-02-05 15:43] VITALS: BP 131/69; PULSE 69; RESP 18; TEMP 37.1; O2SAT 96
[2021-02-05 17:47] LABS: POC Glucose,Bedside 108 (70-110)
--- NOTE | 2021-02-05 17:47 | PC.NURSE ---
Pt has been pleasant and cooperative this shift. A&O X4. No complaints of pain or SOA. Pt is currently on room air with sats. >90%. Lungs CTA. No edema noted. RT foot wound vac dressing noted to be C/D/I. LT BKA present. Pt is currently NWB and has not been OOB this shift. Pt uses the urinal to void and urine is clear/dark-yellow. No BM this shift. Appetite is fair and pt eats about half of all meals. FSBS results have been 126 and 108. PICC line in the RT upper arm is patent and infusing NS @ 100 ML/HR. PICC line was unable to be flushed this AM and received order for CathFlo Activase from Dr. Pandya. After administration, PICC flushed without difficulty and blood return noted. VSS. Call light within reach. Will continue to monitor.
[2021-02-05 20:00] VITALS: BP 117/74; PULSE 76; RESP 20; TEMP 37.1; O2SAT 94
[2021-02-05 21:25] LABS: POC Glucose,Bedside 150 (70-110)
[2021-02-06 04:00] VITALS: BP 138/84; PULSE 69; RESP 20; TEMP 36.9; O2SAT 97
--- NOTE | 2021-02-06 04:21 | PC.NURSE ---
shift summary patient continues to require prn pain medication. patient declines po pain medication and asks for morphine. educated patient on steps of discharge and attempting to wean iv pain medication. patient replied when did we start doing that? denies nausea or soa
[2021-02-06 05:31] LABS: POC Glucose,Bedside 128 (70-110)
[2021-02-06 08:00] VITALS: BP 129/64; PULSE 73; RESP 18; TEMP 36.8; O2SAT 96
--- NOTE | 2021-02-06 09:48 | HMH.ACPN2 ---
Internal Medicine - PN: Subj *Date: 02/06/21 *Time: 09:49 Interval history: No new complaints. Pain is tolerable with current regimen. Exam Vital signs and Labs for Last 24 Hours: Temp Pulse Resp BP Pulse Ox 98.3 F 73 18 129/64 96 02/06/21 08:00 02/06/21 08:00 02/06/21 08:00 02/06/21 08:00 02/06/21 08:00 Laboratory Results - last 24 hr 02/05/21 12:07: POC Glucose 126 H 02/05/21 14:15: Gentamicin Trough 1.4 02/05/21 17:32: POC Glucose 108 02/05/21 20:59: POC Glucose 150 H 02/06/21 05:06: POC Glucose 128 H I & O for Last 24 hours: Intake & Output 02/03/21 02/04/21 02/05/21 02/06/21 11:59 11:59 11:59 11:59 Intake Total 2172 / 2172 2055 / 2055 2486 / 2486 2788 / 2788 Output Total 1225 / 1225 650 / 650 650 / 650 1999 / 1999 Balance 947 / 947 1405 / 1405 1836 / 1836 788 / 788 Microbiology Reports for the Last 24 Hours: Microbiology 02/02/21 07:44 Ankle,Right Gram Stain - Final 02/02/21 07:44 Ankle,Right Surgical Biopsy Culture - Preliminary NO GROWTH AFTER 72 HOURS 02/02/21 07:44 Ankle,Right Gram Stain - Final 02/02/21 07:44 Ankle,Right Wound Culture - Preliminary NO GROWTH AFTER 72 HOURS Narrative: Alert and oriented. Lungs are clear anteriorly. Heart is regular. Abdomen obese, soft, nontender. Extremities with wound VAC in place. Dressing is clean and dry. Assessment and Plan (1) Dehiscence of incision Status: Acute Qualifiers: Encounter type: initial encounter Qualified Code(s): T81.31XA - Disruption of external operation (surgical) wound, not elsewhere classified, initial encounter Category: Medical Code(s): T81.31XA - Disruption of external operation (surgical) wound, not elsewhere classified, initial encounter (2) Wound cellulitis Status: Acute Category: Medical Code(s): L03.90 - Cellulitis, unspecified (3) Cellulitis Status: Acute Qualifiers: Site of cellulitis: neck Qualified Code(s): L03.221 - Cellulitis of neck Category: Medical Code(s): L03.90 - Cellulitis, unspecified (4) Anemia Status: Acute Category: Medical Code(s): D64.9 - Anemia, unspecified (5) Type 2 diabetes mellitus with diabetic neuropathy, with long-term current use of insulin Status: Chronic Category: Medical Code(s): E11.40 - Type 2 diabetes mellitus with diabetic neuropathy, unspecified; Z79.4 - senior care (current) use of insulin (6) Status post foot surgery Status: Acute Category: Surgical Code(s): Z98.890 - Other specified postprocedural states (7) History of cancer chemotherapy Status: Acute Category: Medical Code(s): Z92.21 - Personal history of antineoplastic chemotherapy (8) Postoperative edema Status: Acute Category: Medical Code(s): R60.9 - Edema, unspecified (9) Other chronic osteomyelitis, right ankle and foot Status: Acute Category: Medical Code(s): M86.671 - Other chronic osteomyelitis, right ankle and foot (10) BMI 45.0-49.9, adult Status: Acute Category: Medical Code(s): Z68.42 - Body mass index [BMI] 45.0-49.9, adult (11) Charcot foot due to diabetes mellitus Status: Acute Category: Medical Code(s): E11.610 - Type 2 diabetes mellitus with diabetic neuropathic arthropathy (12) Near syncope Status: Acute Category: Medical Code(s): R55 - Syncope and collapse (13) Diabetic ulcer of right midfoot associated with type 2 diabetes mellitus, with fat layer exposed Status: Acute Category: Medical Code(s): E11.621 - Type 2 diabetes mellitus with foot ulcer; L97.412 - Non-pressure chronic ulcer of right heel and midfoot with fat layer exposed (14) Osteomyelitis of fifth toe of right foot Status: Acute Category: Medical Code(s): M86.9 - Osteomyelitis, unspecified (15) PVD (peripheral vascular disease) Status: Acute Category: Medical Code(s): I73.9 - Peripheral vascular disease, unspecified (16)
--- NOTE | 2021-02-06 11:34 | P.CONPHA_ITS ---
- Pharmacy Consult Date: 02/06/21 Time: 11:34 Referring provider: DR. ALFREDO Reason for Consult:: GENTAMYCIN TROUGH LEVEL Allergies and ADEs:: Allergies Allergy/AdvReac Type Severity Reaction Status Date / Time cefepime Allergy Severe BLEEDING Verified 01/24/21 10:23 SORES pantoprazole [From Protonix] Allergy Severe Diarrhea Verified 01/24/21 10:23 piperacillin [From ZOSYN] Allergy Severe RENAL Verified 01/24/21 10:23 FAILURE tazobactam [From ZOSYN] Allergy Severe RENAL Verified 01/24/21 10:23 FAILURE vancomycin [VANCOMYCIN] Allergy Severe RENAL Verified 01/24/21 10:23 FAILURE ciprofloxacin [From CIPRO] Allergy Intermediate JOINT PAIN Verified 01/24/21 10:23 doxazosin Allergy Intermediate LOW Verified 01/24/21 10:23 BP/DEHYDRATION exenatide [From BYDUREON] Allergy Intermediate Unknown Verified 01/26/21 22:10 allergy reaction hydralazine [HYDRALAZINE] Allergy Intermediate LOW Verified 01/24/21 10:23 BP/DEHYDRATION nifedipine Allergy Intermediate LOW Verified 01/24/21 10:23 BP/DEHYDRATION pioglitazone [From ACTOS] Allergy Intermediate CHEST Verified 01/24/21 10:23 CONGESTION rosiglitazone [From AVANDIA] Allergy Intermediate CHEST Verified 01/24/21 10:23 CONGESTION sulfamethoxazole Allergy Intermediate JOINT Verified 01/24/21 10:23 [From BACTRIM] SWELLING trimethoprim [From BACTRIM] Allergy Intermediate JOINT Verified 01/24/21 10:23 SWELLING sucralfate [From CARAFATE] Allergy Unknown Unknown Verified 01/24/21 10:23 allergy reaction carvedilol AdvReac Difficulty Verified 01/24/21 10:23 Breathing hydromorphone [From Dilaudid] AdvReac Vomiting Verified 01/24/21 10:23 Home Medications:: Home Medications Medication Instructions Recorded Confirmed Type Calcium Carbonate [Calcium] 2,000 mg PO BID 07/01/17 01/26/21 History Insulin Lispro [HumaLOG 100 30 units SQ DIRECTED 07/01/17 01/26/21 History units/mL 3mL vial (SSI)] diphenhydrAMINE HCL [Benadryl 25mg 50 mg PO HSP PRN 07/01/17 01/26/21 History Capsule] hydroCHLOROthiazide [HCTZ 25mg 25 mg PO DAILY 07/01/17 01/26/21 History tab] Fluticasone Propionate [Flonase 2 spray NS DAILY 10/16/18 01/26/21 History 50mcg nasal spray 16gm] Trazodone HCl 100 mg PO HS 10/17/19 01/26/21 History Potassium Chloride 10 meq PO BID 01/08/20 01/26/21 History Nebivolol HCl [Bystolic] 20 mg PO HS 01/09/20 01/26/21 History cyclobenzaprine 5 mg tablet 5 mg PO BIDP PRN tab 01/20/20 01/27/21 History Acetaminophen [Tylenol Arthritis] 650 mg PO BID 06/01/20 01/26/21 History Amlodipine Besylate 2.5 mg PO HS 06/01/20 01/26/21 History Atorvastatin Calcium [Lipitor 20mg 20 mg PO HS 06/01/20 01/26/21 History Tab] Sennosides [Senna] 8.6 mg PO HS 06/01/20 01/26/21 History Furosemide [Lasix 20mg tablet] 20 mg PO DAILY 07/15/20 01/26/21 History Esomeprazole Magnesium [Nexium] 20 mg PO DAILY 10/08/20 01/26/21 History Gabapentin [Neurontin 600mg 600 mg PO BID 10/08/20 01/26/21 History tablet] Mometasone/Formoterol [Dulera 100 2 puff IH BID 10/08/20 01/26/21 History Mcg-5 Mcg Inhaler] lenvatinib 10 mg/day (10 mg x 1) 20 mg PO DAILY cap 0
[2021-02-06 11:47] LABS: POC Glucose,Bedside 170 (70-110)
[2021-02-06 15:57] VITALS: BP 149/73; PULSE 68; RESP 21; TEMP 36.6; O2SAT 95
[2021-02-06 16:48] LABS: POC Glucose,Bedside 147 (70-110)
--- NOTE | 2021-02-06 18:11 | PC.NURSE ---
Pt has been pleasant and cooperative this shift. A&O X4. No complaints of pain or SOA. Pt is currently on room air with sats. >90%. Lungs CTA. No edema noted. RT foot wound vac dressing noted to be C/D/I. LT BKA present. Pt uses the urinal to void and urine is clear/dark-yellow. No BM this shift. Appetite is good and pt eats the majority of all meals. FSBS results have been 170 and 147. PICC line in the RT upper arm is patent and infusing NS @ 25 ML/HR. VSS. Call light within reach. Will continue to monitor.
[2021-02-06 20:00] VITALS: BP 134/72; PULSE 75; RESP 20; TEMP 36.8; O2SAT 96
[2021-02-06 20:38] LABS: POC Glucose,Bedside 123 (70-110)
--- NOTE | 2021-02-07 04:54 | PC.NURSE ---
shift summary patient has only required one dose of pain medication, percocet given at bedtime. breath sounds remain clear to auscultation. pulse remains regular. dressing to [facility] extremity intaqct with wound vac in place. voiding clear yellow urine.
[2021-02-07 06:00] VITALS: BP 150/75; PULSE 70; RESP 16; TEMP 36.4; O2SAT 94
[2021-02-07 06:15] LABS: POC Glucose,Bedside 158 (70-110)
[2021-02-07 06:25] LABS: Basophils # 0.1 K/mm3 (0-0.2); Basophils % 0.8 % (0.1-2.0); Eosinophils # 0.2 K/mm3 (0.0-0.4); Eosinophils % 2.7 % (0.1-12.0); Hemoglobin 8.1 g/dL (14.1-18.0); Lymphocytes # 0.5 K/mm3 (0.7-4.5); Lymphocytes % 7.2 % (10-50); Mean Corpuscular HGB Conc 30.6 g/dL (31.8-35.4); Mean Corpuscular Hemoglobin 25.8 pg (27.0-31.2); Mean Corpuscular Volume 84.3 fl (80-94); Mean Platelet Volume 7.7 fl (7.4-10.4); Monocytes # 0.6 K/mm3 (0.1-1.0); Monocytes % 8.7 % (1.7-9.3); Neutrophils # 5.4 K/mm3 (1.8-7.8); Neutrophils % 80.6 % (37.0-80.0); Platelet Count 519 K/mm3 (142-424); Red Blood Count 3.13 M/mm3 (4.60-6.20); Red Cell Distribution Width 17.5 % (11.5-17.5); White Blood Count 6.7 K/mm3 (4.8-10.8)
[2021-02-07 06:37] LABS: Chloride 107 mmol/L (98-107); Hematocrit 26.4 % (42.0-52.0); Sodium 137 mmol/L (136-145)
[2021-02-07 06:40] LABS: Blood Urea Nitrogen 17 mg/dl (9-20); Calcium 7.9 mg/dl (8.4-10.2); Carbon Dioxide 25 mmol/L (22.0-30.0); Creatine Kinase 71 U/L (55-170); Creatinine Clearance Estimated 92 mL/min (50-200); Estimated Glomerular Filt Rate 98 ml/min (>60); GFR (African American) 119 ML/MIN (>60); Glucose 146 mg/dl (74-100)
[2021-02-07 06:53] LABS: Erythrocyte Sedimentation Rate 86 mm/hr (0-20)
[2021-02-07 07:45] LABS: C-Reactive Protein 122.6 mg/L (0-4)
--- NOTE | 2021-02-07 07:59 | HMH.ORTHPN ---
Subjective Date: 02/07/21 Time: 07:30 Principal diagnosis: R Foot I&D, s/p TMA 01/21/21 Interval history: Patient resting comfortably in bed. Reports no pain. Wound VAC in place with 25cc serosanguineous drainage noted in canister. PN: Obj Ex Vital signs: Temp Pulse Resp BP Pulse Ox 97.6 F 70 16 150/75 H 94 L 02/07/21 06:00 02/07/21 06:00 02/07/21 06:00 02/07/21 06:00 02/07/21 06:00 - Constitutional no acute distress, morbidly obese - Routine HEENT Exam Head: Present: normocephalic Eye: Present: EOMI ENT: Present: mucous membranes moist - Routine Extremities Exam Present: edema, amputation (L BKA, R TMA). Absent: normal capillary refill - Detailed Lower Extremity Exam Leg image: 1 - Wound located to the right medial calf. Post debridement with a sharp curette through skin into/involving subcutaneous tissue wound was 100% granular measured 1.8 x 1.2 x 0.2 cm, no signs of infection. Ulcer noted to medial ankle just to side of smith anterior graft site. Ulcer is 100% fibrotic yellow, ~1.1x1.0x0.1cm. Ulcer noted to the right medial heel ~1x0.8x0.1cm with dusky gangrenous changes to the heel as well as the transmetatarsal amputation site. The [place] graft is secure with smith to the anterior ankle, over plantar TMA site. Maceration noted to the platar foot skin. Wound vac was applied over graft sites x2 and over the right lateral foot. Progress Note: A&P (1) Dehiscence of incision Status: Acute (2) Wound cellulitis Status: Acute (3) Cellulitis Status: Acute (4) Anemia Status: Acute (5) Type 2 diabetes mellitus with diabetic neuropathy, with long-term current use of insulin Status: Chronic (6) Status post foot surgery Status: Acute (7) History of cancer chemotherapy Status: Acute (8) Postoperative edema Status: Acute (9) Other chronic osteomyelitis, right ankle and foot Status: Acute (10) BMI 45.0-49.9, adult Status: Acute (11) Charcot foot due to diabetes mellitus Status: Acute (12) Near syncope Status: Acute (13) Diabetic ulcer of right midfoot associated with type 2 diabetes mellitus, with fat layer exposed Status: Acute (14) Osteomyelitis of fifth toe of right foot Status: Acute (15) PVD (peripheral vascular disease) Status: Acute (16) Status post incision and drainage Status: Acute (17) History of left below knee amputation Status: Chronic (18) Type 2 diabetes mellitus Status: Chronic (19) Klebsiella infection Status: Acute (20) History of peptic ulcer disease Status: Acute (21) Hypersomnolence Status: Acute Assessment and Plan for All Diagnoses:: S/P 02/02/21 Right foot/ankle suture, staple removal, Right foot, ankle incision and drainage, Right foot wound irrigation and debridement, Right TMA flap revision with delayed primary closure, Application of Integra wound graft, Application of wound vac (CoNarrative). POD#5 02/02/21, intra-op specimens: Right ankle wound culture, right foot tissue culture: [id number] Microbiology 02/02/21 07:44 Ankle,Right Gram Stain - Final 02/02/21 07:44 Ankle,Right Gram Stain - Final 01/26/21 17:15 Foot,Right - Right Bone Culture - Final NO GROWTH AFTER 5 DAYS 01/26/21 17:05 Foot,Right Gram Stain - Final 01/26/21 17:05 Foot,Right Wound Culture - Final Klebsiella oxytoca 01/26/21 16:22 Ankle,Right Gram Stain - Final 01/26/21 16:22 Ankle,Right Wound Culture - Final Staphylococcus epidermidis 01/26/21 12:16 Blood - Other Blood Culture - Final NO GROWTH AFTER 5 DAYS 01/26/21 12:16 Blood - Other Blood Culture - Final NO GROWTH AFTER 5 DAYS 02/02/21 07:44 Ankle,Right Wound Culture - Preliminary
[2021-02-07 08:00] VITALS: BP 145/76; PULSE 75; RESP 18; TEMP 36.8; O2SAT 95
--- NOTE | 2021-02-07 08:43 | HMH.ACPN2 ---
<Suzie Holland - Last Filed: 02/07/21 08:43> Internal Medicine - PN: Subj *Date: 02/07/21 *Time: 07:55 Interval history: Pt sitting up at the bedside eating breakfast. He is feeling well. He denies pain and has no complaint. Exam Vital signs and Labs for Last 24 Hours: Temp Pulse Resp BP Pulse Ox 98.3 F 75 18 145/76 H 95 02/07/21 08:00 02/07/21 08:00 02/07/21 08:00 02/07/21 08:00 02/07/21 08:00 Laboratory Results - last 24 hr 02/06/21 11:31: POC Glucose 170 H 02/06/21 16:38: POC Glucose 147 H 02/06/21 20:25: POC Glucose 123 H 02/07/21 06:03: POC Glucose 158 H 02/07/21 06:07: WBC 6.7, RBC 3.13 L, Hgb 8.1 L, Hct 26.4 L, MCV 84.3, MCH 25.8 L, MCHC 30.6 L, RDW 17.5, Plt Count 519 H, MPV 7.7, Neut % (Auto) 80.6 H, Lymph % (Auto) 7.2 L, Ware % (Auto) 8.7, Eos % (Auto) 2.7, Baso % (Auto) 0.8, Neut # (Auto) 5.4, Lymph # (Auto) 0.5 L, Ware # (Auto) 0.6, Eos # (Auto) 0.2, Baso # (Auto) 0.1, ESR 86 H 02/07/21 06:07: Sodium 137, Potassium 4.0, Chloride 107, Carbon Dioxide 25, Anion Gap 9.0, BUN 17 D, Creatinine 0.80, Estimated Creat Clear 92, Estimated GFR 98, Est GFR ( Amer) 119, Glucose 146 H, Calcium 7.9 L, Total Creatine Kinase 71 02/07/21 06:08: C-Reactive Protein 122.6 H I & O for Last 24 hours: Intake & Output 02/04/21 02/05/21 02/06/21 02/07/21 11:59 11:59 11:59 11:59 Intake Total 2055 / 2055 2486 / 2486 2788 / 2788 3090 / 3090 Output Total 650 / 650 650 / 650 1999 1526 / 1526 Balance 1405 / 1405 1836 / 1836 788 / 788 1564 / 1564 Microbiology Reports for the Last 24 Hours: Microbiology 02/02/21 07:44 Ankle,Right Gram Stain - Final 02/02/21 07:44 Ankle,Right Surgical Biopsy Culture - Preliminary NO GROWTH AFTER 4 DAYS 02/02/21 07:44 Ankle,Right Gram Stain - Final 02/02/21 07:44 Ankle,Right Wound Culture - Preliminary NO GROWTH AFTER 4 DAYS - Constitutional no acute distress - *Routine HEENT Exam Head: Present: normocephalic, atraumatic ENT: Present: mucous membranes moist - *Routine Respiratory Exam Present: CTA bilaterally - *Routine Cardiovascular Exam Present: RRR - *Routine Abdominal Exam Present: soft, normoactive bowel sounds, obese. Absent: tenderness - *Routine Extremities Exam Absent: calf tenderness, extremity cold to touch Comments: left BKA; RLE with dsg C/D/I over wound vac - *Routine Neurological Exam Present: alert, oriented X3, moving all extremities, normal speech Assessment and Plan (1) Dehiscence of incision Status: Acute Qualifiers: Encounter type: initial encounter Qualified Code(s): T81.31XA - Disruption of external operation (surgical) wound, not elsewhere classified, initial encounter Category: Medical Code(s): T81.31XA - Disruption of external operation (surgical) wound, not elsewhere classified, initial encounter (2) Wound cellulitis Status: Acute Category: Medical Code(s): L03.90 - Cellulitis, unspecified (3) Cellulitis Status: Acute Qualifiers: Site of cellulitis: neck Qualified Code(s): L03.221 - Cellulitis of neck Category: Medical Code(s): L03.90 - Cellulitis, unspecified (4) Anemia Status: Acute Category: Medical Code(s): D64.9 - Anemia, unspecified (5) Type 2 diabetes mellitus with diabetic neuropathy, with long-term current use of insulin Status: Chronic Category: Medical Code(s): E11.40 - Type 2 diabetes mellitus with diabetic neuropathy, unspecified; Z79.4 - senior care (current) use of insulin (6) Status post foot surgery Status: Acute Category: Surgical Code(s): Z98.890 - Other specified postprocedural states (7) History of cancer chemotherapy Status: Acute Category: Medical Code(s): Z92.21 - Personal history of antineoplastic chemotherapy (8) Postoperative edema Status: Acute Category: Medical Code(s): R60.9 - Edema, unspecified (9) Other chronic osteomyelitis, right
[2021-02-07 11:23] LABS: Coronavirus 19, PCR Not Detected (NotDetected); Influenza A, PCR Not Detected (NotDetected); Influenza B, PCR Not Detected (NotDetected)
[2021-02-07 11:42] LABS: POC Glucose,Bedside 151 (70-110)
--- NOTE | 2021-02-07 13:32 | HMH.DCSUM ---
General - General Admission date:: 01/26/21 <Prem Pandya - 03/27/21 22:41> 01/26/21 <SkylerSuzie orellana - 02/07/21 14:41> Discharge date: 02/07/21 <SkylerSuzie orellana - 02/07/21 14:41> HPI HPI: Patient presented to the ED 5 days post op from Right [facility] and after having his infusion of daptomycin and Levaquin earlier in the day. Patient had told infusion that he was not feeling well and was directed to go to podiatry to be seen. Patient was complaining of increasing pain and swelling in the right lower extremity. Patient stated he just did not feel well and felt like he was going to pass out. Patient's glucose in the office was 288 and blood pressure was elevated. He could not remember for sure if he had taken his medication that morning. Patient did present with new areas to the right foot. Patient had just been seen in the office on the Sunday prior for his first postop visit from right [facility] on 01/21/2021. Patient's foot now presented with blisters to the right lateral dorsal foot, right medial proximal and distal areas, to plantar blisters and some areas also noted to his calf. The leg was edematous and felt very taut and warm to touch. Edema and tightness extended to some of the thigh and into the medial groin area. The erythema was mainly to the foot and starting to extend up the tibia. There were sutures and smith to the incision site with lateral dehiscence shown with some clear drainage coming from the amp site. The ERNA drain was intact with less than 10 cc of bloody drainage in the bulb. The sites were cleaned with Betadine and redressed with Betadine to the TMA incision site and Xeroform and Betadine to the posterior Achilles lengthening site dressed with Kerlix and Tian wrap. He was then transferred to the ER to be evaluated. The patient had labs and CT scan of the right foot while in the ER with Findings: 1. Diffuse subcutaneous edema and subcutaneous fluid noted throughout the tib fib and ankle and midfoot status post transmetatarsal amputation at the mid metatarsal region. Gas density noted at the amputation site which may be postsurgical. There is a small amount of gas along the anterior aspect of the distal tibia and in the right extensor digitorum longus muscle. These could be postsurgical. Gas-forming infection is not excluded as they are not in direct apposition to the surgical site. 2. There is some asymmetric soft tissue density along the medial aspect of the amputation stump which could be due to asymmetric edema/fluid or hemorrhage. Small abscess is not excluded however, this area does not appear to be localized. This area measures approximately 3 by 1.2 cm. This is along the anterior aspect of the surgical drain. 3. No bony erosive process apparent that would indicate acute osteomyelitis. 4. Well-defined tear of the Achilles tendon which may be iatrogenic. Dr. Croft was notified of the findings showing gas gangrene and the decision was made to consent the patient for incision and drainage of nonviable soft tissue and bone with bone biopsies to be done today. The written consent was obtained and the procedure was explained with risks and benefits to the patient prior to surgery. Patient was admitted after the surgery for medical management per Dr. Smith who was on-call for Dr. Pandya. (Above as per Daina Antonio) <Suzie Holland - 02/07/21 14:41> Hospital Course Hospital Course: The following morning, patient continued to have RLE pain which was felt to be related to spasm. His dressing was changed per podiatry. He was seen by cardiology and Echo was ordered due to uncontrolled diabetes and shortness of breath. After discussion with Dr. Liu, he was was not felt to be a candidate for right lower extremity runoff due to low-grade fever and low hemoglobin. By the morning of 01/27/21, he was more comfortable and had rested well overnight. His hemoglobin dropped to 6.7 although he remained hemodynamicall
[2021-02-07 16:00] VITALS: BP 131/65; PULSE 73; RESP 18; TEMP 36.9; O2SAT 95
--- NOTE | 2021-02-07 19:20 | PC.NURSE ---
PT WAS D/C PER EMS AT 192
== END 2021-02-07 19:26 | DRG 463 ==
LOC: ER 14:43 → SDC 15:58 → ICU 01-27 08:08 → 2ND 01-27 18:08
PROVIDERS: Physician Assistant; Admitting Provider Family Medicine; Emergency Provider Emergency Medicine; PCP Family Medicine; Referring Provider Podiatrist; Visit Provider Family Medicine
PROC: 0QBN0ZZ Excision of Right Metatarsal, Open Approach (ICD-10-PCS; principal; 2021-01-26 15:30)
PROC: 0HRKXK3 Replacement of Right Lower Leg Skin with Nonautologous Tissue Substitute, Full Thickness, External Approach (ICD-10-PCS; principal; 2021-02-02 07:30)
DX: T87.81 Dehiscence of amputation stump (principal); A48.0 Gas gangrene; E11.52 Type 2 diabetes mellitus with diabetic peripheral angiopathy with gangrene; C78.00 Secondary malignant neoplasm of unspecified lung; C79.51 Secondary malignant neoplasm of bone; L97.412 Non-pressure chronic ulcer of right heel and midfoot with fat layer exposed; L03.221 Cellulitis of neck; M86.171 Other acute osteomyelitis, right ankle and foot; L03.818 Cellulitis of other sites; E11.621 Type 2 diabetes mellitus with foot ulcer; Z20.822 Contact with and (suspected) exposure to COVID-19; Z87.891 Personal history of nicotine dependence; I25.10 Atherosclerotic heart disease of native coronary artery without angina pectoris; J45.909 Unspecified asthma, uncomplicated; I11.0 Hypertensive heart disease with heart failure; I50.9 Heart failure, unspecified; I48.91 Unspecified atrial fibrillation; Z86.718 Personal history of other venous thrombosis and embolism; I25.2 Old myocardial infarction; E78.5 Hyperlipidemia, unspecified; C73 Malignant neoplasm of thyroid gland; Z86.711 Personal history of pulmonary embolism; Z95.5 Presence of coronary angioplasty implant and graft; M19.90 Unspecified osteoarthritis, unspecified site; E11.610 Type 2 diabetes mellitus with diabetic neuropathic arthropathy; R55 Syncope and collapse; E11.40 Type 2 diabetes mellitus with diabetic neuropathy, unspecified; E11.69 Type 2 diabetes mellitus with other specified complication; Z89.512 Acquired absence of left leg below knee; Z91.19 Patient's noncompliance with other medical treatment and regimen; D63.0 Anemia in neoplastic disease; G89.29 Other chronic pain; M54.9 Dorsalgia, unspecified; G47.10 Hypersomnia, unspecified; Y83.5 Amputation of limb(s) as the cause of abnormal reaction of the patient, or of later complication, without mention of misadventure at the time of the procedure; E03.9 Hypothyroidism, unspecified; B96.89 Other specified bacterial agents as the cause of diseases classified elsewhere; R41.0 Disorientation, unspecified
CPT/HCPCS: 11042 ×3; 11044; 20240 ×2; 28308; 28304; Q4108; 36415; 73600; 73610; 73700; 73706; 80048; 80053; 80170; 81001; 82272; 82550; 82803; 82962; 83540; 83550; 83605; 85007; 85014; 85018; 85025; 85044; 85651; 86140; 86850; 87040; 87070; 87075; 87077; 87186; 87205; 88304; 88305; 88311; 93005; 93306; 94640; 94761; 96365; 96367; 99284; G0328; G0463; J0878; J1335; J1642; J1956; P9016; Q4104; Q9966; Q9967; U0003

== ENCOUNTER → 2021-01-26 16:24 | Outpatient (CLI) | payer MEDICARE, SELFPAY | PROVIDERS: Visit Provider Nurse Practitioner | DX: Z98.890 Other specified postprocedural states (principal) | CPT/HCPCS: 87070; 87077; 87186; 87205 ==

== ENCOUNTER → 2021-02-15 17:25 | Outpatient (CLI) | payer MEDICARE, SELFPAY | PROVIDERS: Visit Provider Podiatrist | DX: T81.31XA Disruption of external operation (surgical) wound, not elsewhere classified, initial encounter (principal); Z98.890 Other specified postprocedural states | CPT/HCPCS: 87070; 87077; 87205 ==

== ENCOUNTER 2021-02-24 15:00 | Outpatient (RCR) | payer MEDICARE, SELFPAY | END 2021-02-24 15:05 | disposition home or self-care (01) | LOC: PT 15:00 | PROVIDERS: PCP Family Medicine; Visit Provider Podiatrist | DX: E11.621 Type 2 diabetes mellitus with foot ulcer (principal); L97.519 Non-pressure chronic ulcer of other part of right foot with unspecified severity; M86.9 Osteomyelitis, unspecified | CPT/HCPCS: 97163; 97597; 97598 ==

== ENCOUNTER → 2021-06-01 16:03 | Outpatient (CLI) | payer MEDICARE, SELFPAY ==
[2021-06-01 16:27] LABS: Basophils # 0.1 K/mm3 (0-0.2); Basophils % 0.7 % (0.1-2.0); Eosinophils # 0.2 K/mm3 (0.0-0.4); Eosinophils % 2.7 % (0.1-12.0); Hematocrit 37.2 % (42.0-52.0); Hemoglobin 12.2 g/dL (14.1-18.0); Lymphocytes # 1.2 K/mm3 (0.7-4.5); Lymphocytes % 14.9 % (10-50); Mean Corpuscular Hemoglobin 27.7 pg (27.0-31.2); Mean Corpuscular Volume 83.9 fl (80-94); Mean Platelet Volume 8.7 fl (7.4-10.4); Monocytes # 0.5 K/mm3 (0.1-1.0); Monocytes % 6.8 % (1.7-9.3); Neutrophils # 5.9 K/mm3 (1.8-7.8); Neutrophils % 75.1 % (37.0-80.0); Platelet Count 324 K/mm3 (142-424); Red Blood Count 4.43 M/mm3 (4.60-6.20); Red Cell Distribution Width 17.4 % (11.5-17.5); White Blood Count 7.9 K/mm3 (4.8-10.8)
== END ==
PROVIDERS: Visit Provider Family Medicine
DX: D64.9 Anemia, unspecified (principal)
CPT/HCPCS: 85025

== ENCOUNTER 2021-08-07 15:38 | Emergency (ER) | payer MEDICARE, SELFPAY ==
[2021-08-07] VITALS (8 sets, daily range): BP systolic 168–187; BP diastolic 80–91; PULSE 69–74; RESP 15–18; TEMP 37.1; O2SAT 92–97; BMI 43.7
--- NOTE | 2021-08-07 16:08 | XR_ITS ---
PROCEDURE INFORMATION: Exam: XR Chest Exam date and time: 08/07/2021 4:08 PM Age: 60 years old Clinical indication: Other: Cancer history; Additional info: Possible broken hip//right hip pain // history of bone cancer and thyroid cancer. TECHNIQUE: Imaging protocol: XR of the chest. Views: 1 view. Portable AP supine exam 4:23 p.m. COMPARISON: CR XR CHEST PORTABLE PICC PLAC 01/21/2021 11:00 AM FINDINGS: Tubes, catheters and devices: Chronic surgical clips and sutures in the thyroid region in the lower neck. Lungs: No acute pulmonary findings as visualized. No focal consolidation. Chronic interstitial prominence compared with 01/21/2021. Right costophrenic angle is clipped off the field of view. Pleural spaces: Unremarkable as visualized. No significant pleural effusion. No pneumothorax seen on this limited supine exam. Heart/Mediastinum: Chronic enlarged cardiac silhouette. Chronic widened superior mediastinal shadows, this is chronic compared with the prior exam though the upper mediastinum appears slightly more prominent today, 12.6 cm transverse diameter today versus approximate 10.2 cm at the same level on the prior exam. Bones/joints: There are spinal degenerative changes, with multilevel disc narrrowing and spondylosis. Minimal chronic appearing rib deformities. Costal cartilage calcifications. IMPRESSION: 1. No acute cardiopulmonary findings. 2. Cardiomegaly. 3. Chronic widened superior mediastinum, slightly more prominent compared with 01/21/2021, which could be due to mediastinal lipomatosis, vascular ectasia, underlying adenopathy or mass. Consider follow-up CT, in this patient with history of multiple malignancies. 4. Additional nonemergency and chronic findings as above.
--- NOTE | 2021-08-07 16:08 | XR_ITS ---
PROCEDURE INFORMATION: Exam: XR Right Hip Exam date and time: 08/07/2021 4:08 PM Age: 60 years old Clinical indication: Hip pain; Right hip; Additional info: Right hip pain // history of bone cancer and thyroid cancer. TECHNIQUE: Imaging protocol: XR Right hip. Views: 2 or 3 views hip with pelvis when performed. COMPARISON: CT ABDOMEN PELVIS WO CON 01/08/2020 6:10 PM FINDINGS: Bones/joints: No acute fracture or dislocation at the right hip joint. Minimal superior hip joint space narrowing. 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 Prominent lytic lesion in the left ischium again noted, a pathologic fracture of the left acetabulum is not well seen on these plain x-rays, much better seen on CT. Bilateral pelvic enthesophytes. Sacroiliitis. Lower lumbar fusion hardware at L4-L5. Soft tissues: No acute findings in the soft tissues. No soft tissue emphysema. Vasculature: Phleboliths and atherosclerotic calcified plaques in the pelvis. IMPRESSION: 1. No acute fracture or dislocation at the right hip. 2. A chronic sclerotic-rimmed right acetabular lesion which could be cyst or metastasis, as seen on previous CT. 3. 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 4. Additional nonemergency and chronic findings as above.
--- NOTE | 2021-08-07 16:19 | PC.NURSE ---
pt taken to radiology.
--- NOTE | 2021-08-07 16:21 | HMH.EDGENADL ---
ED Disposition Clinical Impression: Right hip pain Disposition: Home, Self-Care Condition on Discharge: Good Additional Instructions: Continue Percocet for pain. Follow-up with your primary care doctor this week if pain persists. Referrals: Prem Pandya MD [Primary Care Provider] - - Critical Care Critical Care Time: No Attestation: On 08/07/21, the high probability of a clinically significant, sudden or life threatening deterioration of the following system(s) required my full and direct attention, intervention and personal management. The time I documented below is in addition to time spent performing reported procedures but includes the following listed in this critical care notation. Medical Decision Making - Mio Inquiry Pt receiving controlled substance: No Vital Signs: 08/07/21 15:39 08/07/21 16:15 08/07/21 17:15 Temperature 98.7 F Temperature Source Oral Pulse Rate 69 71 Pulse Rate [Left Radial] 74 Respiratory Rate 18 Blood Pressure 187/83 H 168/85 H Blood Pressure [Right Arm] 186/80 H Blood Pressure Mean [Right Arm] 115 Blood Pressure Source [Right Arm] Automatic Cuff Blood Pressure Position [Right Arm] Sitting 02 Sat by Pulse Oximetry 97 94 L 92 L Oxygen Delivery Method Room Air Room Air Room Air - Radiology Data #1 Image(s): Chest, Hip Image Reviewed: Yes I reviewed the patient's radiology image PROCEDURE INFORMATION: Exam: XR Right Hip Exam date and time: 08/07/2021 4:08 PM Age: 60 years old Clinical indication: Hip pain; Right hip; Additional info: Right hip pain // history of bone cancer and thyroid cancer. TECHNIQUE: Imaging protocol: XR Right hip. Views: 2 or 3 views hip with pelvis when performed. COMPARISON: CT ABDOMEN PELVIS WO CON 01/08/2020 6:10 PM FINDINGS: Bones/joints: No acute fracture or dislocation at the right hip joint. Minimal superior hip joint space narrowing. Lobulated sclerotic -rimmed density projected over the inferior medial hip joint space, likely corresponding with acetabular cyst or bone metastasis seen on the perfect binder operator CT scan. Prominent lytic lesion in the left ischium again noted, a pathologic fracture of the left acetabulum is not well seen on these plain x-rays, much better seen on CT. Bilateral pelvic enthesophytes. Sacroiliitis. Lower lumbar fusion hardware at L4-L5. Soft tissues: No acute findings in the soft tissues. No soft tissue emphysema. Vasculature: Phleboliths and atherosclerotic calcified plaques in the pelvis. IMPRESSION: 1. No acute fracture or dislocation at the right hip. 2. A chronic sclerotic-rimmed right acetabular lesion which could be cyst or metastasis, as seen on previous CT. 3. 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 4. Additional nonemergency and chronic findings as above. EDURE INFORMATION: Exam: XR Chest Exam date and time: 08/07/2021 4:08 PM Age: 60 years old Clinical indication: Other: Cancer history; Additional info: Possible broken hip//right hip pain // history of bone cancer and thyroid cancer. TECHNIQUE: Imaging protocol: XR of the chest. Views: 1 view. Portable AP supine exam 4:23 p.m. COMPARISON: CR XR CHEST PORTABLE PICC PLAC 01/21/2021 11:00 AM FINDINGS: Tubes, catheters and devices: Chronic surgical clips and sutures in the thyroid region in the lower neck. Lungs: No acute pulmonary findings as visualized. No focal consolidation. Chronic interstitial prominence compared with 01/21/2021. Right costophrenic angle is clipped off the field of view. Pleural spaces: Unremarkable as visualized. No significant pleural effusion. No pneumothorax seen on this limited supine exam. Heart/Mediastinum: Chronic enlarged cardiac silhouette. Chronic widened superi
--- NOTE | 2021-08-07 16:28 | CT_ITS ---
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 TECHNIQUE: Imaging protocol: CT of the Right lower extremity without contrast was performed. Exam focused on the hip. Radiation optimization: All CT scans at this facility use at least one of these dose optimization techniques: automated exposure control; mA and/or kV adjustment per patient size (includes targeted exams where dose is matched to clinical indication); or iterative reconstruction. COMPARISON: CT ANGIO LE RT 01/31/2021 1:52 PM FINDINGS: Bones/joints: There is a chronic lytic destructive lesion in the left ischium, with pathologic fracture extending through the lesion and involving the articular cortex of the left acetabulum, the fracture appears more apparent compared with the previous CT. At the right hip, there is no acute fracture or dislocation. There is a chronic subcortical cystic or lytic lesion along the posterior right acetabulum which was present on the previous exam, with thin sclerotic rim, likely degenerative cyst though this could be a metastasis. The right femur appears intact and normally aligned, as visualized. Mild superior hip joint space narrowing suggesting underlying chondromalacia. No significant bony arthritic deformities of the right femur. There is a chronic lytic lesion with sclerotic rim in the posterior left iliac bone series 4, image 24 which appears minimally enlarged compared with the prior exam, approximate 1.8 cm today versus 1.6 cm on the prior exam, with overlying posterior cortical-periosteal thickening. A slightly heterogeneous intramedullary trabecular pattern a bones in the pelvis which could be due to subtle infiltrative underlying malignancy or patchy osteopenia. Chronic bilateral sacroiliitis with periarticular spurs and sclerosis. Lower lumbar fusion hardware, incompletely imaged on this exam, no acute lumbar findings as visualized. L5-S1 facet arthropathy. Soft tissues: No acute findings in the soft tissues at the right hip. There are no soft tissue masses or fluid collections. Vasculature: The vasculature demonstrates diffuse mild atherosclerotic calcification. Bowel: Moderate fecal distention of the colon and rectum, correlate for constipation. No dilated loops or mucosal thickening, as visualized. Urinary bladder: The bladder is normal. Reproductive: Prostate is unremarkable. Seminal vesicle calcifications noted.There is no evidence of intestinal perforation or obstruction, as visualized. IMPRESSION: 1. No acute fracture or dislocation at the right hip. 2. 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 3. Mild chronic degenerative changes at the right hip joint with posterior acetabular cyst formation, versus a chronic metastasis in the posterior column. 4. 1.8 cm posterior left iliac bone lesion, worrisome for chronic metastasis, minimally enlarged compared with the prior exam. 5. Atherosclerotic disease. 6. No acute intrapelvic findings. 7. No soft tissue mass or loculated fluid collections. 8. Additional nonemergency and chronic findings as above.
--- NOTE | 2021-08-07 18:05 | PC.NURSE ---
Pt updated by miniature set builder, Laure Martins.
== END 2021-08-07 18:54 | disposition home or self-care (01) ==
PROVIDERS: Emergency Provider Emergency Medicine; PCP Family Medicine
DX: M25.551 Pain in right hip (principal); C73 Malignant neoplasm of thyroid gland; C79.51 Secondary malignant neoplasm of bone
CPT/HCPCS: 71045; 73502; 73700; 99282

== ENCOUNTER → 2021-08-25 14:25 | Outpatient (CLI) | payer MEDICARE, SELFPAY ==
[2021-08-25 16:37] LABS: Prostate Specific Ag Screen 1.8 ng/ml (0.0-4.0)
== END ==
PROVIDERS: Visit Provider Family Medicine
DX: R35.0 Frequency of micturition (principal); Z12.5 Encounter for screening for malignant neoplasm of prostate
CPT/HCPCS: G0103

== ENCOUNTER → 2021-08-26 08:25 | Outpatient (CLI) | payer MEDICARE, SELFPAY ==
[2021-08-26 08:30] LABS: Microscopic, Urine URINE MICROSCOPIC (MICROSCOPIC)
[2021-08-26 09:09] LABS: Appearance,Urine CLEAR (Clear); Bilirubin,Urine Negative (Negative); Blood, Urine Negative (Negative); Color,Urine YELLOW (Yellow); Glucose,Urine (UA) Negative (Negative); Ketones,Urine Negative (Negative); Leukocyte Esterase,Urine Negative (Negative); Nitrate,Urine Negative (Negative); Protein,Urine 1+ (Negative); Specific Gravity, Urine 1.015 (1.005-1.030); Urobilinogen,Urine 0.2 EU/dl (0.2)
[2021-08-26 09:23] LABS: Bacteria,Urine Trace /lpf; RBC,Urine Occasional #/hpf (0-3)
== END ==
PROVIDERS: Visit Provider Family Medicine
DX: Z12.5 Encounter for screening for malignant neoplasm of prostate (principal)
CPT/HCPCS: 81001

== ENCOUNTER 2021-08-30 14:03 | Emergency (ER) | payer MEDICARE, SELFPAY ==
[2021-08-30 14:39] VITALS: BMI 68.3
--- NOTE | 2021-08-30 14:39 | XR_ITS ---
FINAL REPORT CLINICAL HISTORY: rib pain, hx of lesion on left side of ribs COMPARISON: 08/07/2021 FINDINGS: A single view of the chest was obtained. The heart is normal in size. The mediastinum is unremarkable. There is a probable small left pleural effusion or pleural thickening. There is no pneumothorax. There is chronic appearing deformity of the right 6th, 7th, and 8th posterior ribs. There is also a chronic appearing deformity of the left 6th posterior rib. Findings may represent prior fractures. There are postoperative changes in the lower neck. IMPRESSION: Probable small pleural effusion or pleural thickening. Chronic appearing deformities of the bilateral ribs as above may represent prior fractures. If indicated, CT could further evaluate. Reviewed, Interpreted and Dictated by Vlad North III, MD Transcribed by Maria G Carreon Authenticated by Vlad North III, MD on 08/30/2021 03:50:10 PM [facility]
[2021-08-30 14:44] VITALS: BP 157/77; PULSE 74; RESP 18; TEMP 36.9; O2SAT 96; BMI 43.7
[2021-08-30 15:26] LABS: Basophils # 0.1 K/mm3 (0-0.2); Basophils % 0.7 % (0.1-2.0); Eosinophils # 0.2 K/mm3 (0.0-0.4); Hematocrit 42.2 % (42.0-52.0); Hemoglobin 12.8 g/dL (14.1-18.0); Mean Corpuscular HGB Conc 30.4 g/dL (31.8-35.4); Mean Corpuscular Hemoglobin 28.6 pg (27.0-31.2); Mean Corpuscular Volume 94.1 fl (80-94); Mean Platelet Volume 8.8 fl (7.4-10.4); Monocytes # 0.6 K/mm3 (0.1-1.0); Monocytes % 7.3 % (1.7-9.3); Neutrophils # 6.3 K/mm3 (1.8-7.8); Neutrophils % 78.1 % (37.0-80.0); Platelet Count 316 K/mm3 (142-424); Red Blood Count 4.48 M/mm3 (4.60-6.20); Red Cell Distribution Width 16.4 % (11.5-17.5); White Blood Count 8.1 K/mm3 (4.8-10.8)
[2021-08-30 15:32] LABS: Alanine Aminotransferase 33 U/L (12-78); Albumin Level 3.3 g/dl (3.5-5.0); Albumin/Globulin Ratio 0.9 (1.1-1.8); Alkaline Phosphatase 140 U/L (38-126); Anion Gap 10.2 mEq/L (5-15); Aspartate Amino Transferase 30 U/L (17-59); Bilirubin,Total 0.3 mg/dl (0.2-1.3); Blood Urea Nitrogen 16 mg/dl (9-20); Calcium 8.2 mg/dl (8.4-10.2); Carbon Dioxide 30 mmol/L (22.0-30.0); Chloride 98 mmol/L (98-107); Creatinine Clearance Estimated 92 mL/min (50-200); Estimated Glomerular Filt Rate 98 ml/min (>60); GFR (African American) 119 ML/MIN (>60); Globulin 3.8 g/dL (1.3-3.2); Glucose 236 mg/dl (74-100); Potassium 4.2 mmoL/L (3.5-5.1); Sodium 134 mmol/L (136-145); Total Protein,Serum 7.1 g/dl (6.3-8.2)
[2021-08-30 15:34] VITALS: PULSE 74; O2SAT 95
--- NOTE | 2021-08-30 15:45 | HMH.EDGENADL ---
ED Disposition Clinical Impression: Rib pain on left side Disposition: Home, Self-Care Condition on Discharge: Fair Additional Instructions: Call your primary care doctor tomorrow for follow-up for your pain and for your blood pressure. Continue your current pain medication. Take your blood pressure medication when you arrive home this evening. Referrals: Prem Pandya MD [Primary Care Provider] - - Critical Care Critical Care Time: No Attestation: On 08/30/21, the high probability of a clinically significant, sudden or life threatening deterioration of the following system(s) required my full and direct attention, intervention and personal management. The time I documented below is in addition to time spent performing reported procedures but includes the following listed in this critical care notation. Medical Decision Making - Mio Inquiry Pt receiving controlled substance: Yes Mio was queried for this patient: Yes Risks and benefits of using a controlled substance: were discussed with pt by me Vital Signs: 08/30/21 14:44 08/30/21 15:34 08/30/21 16:01 Temperature 98.5 F Temperature Source Oral Pulse Rate 74 75 Pulse Rate [Left Radial] 74 Respiratory Rate 18 Blood Pressure 185/101 H Blood Pressure [Right Arm] 157/77 H Blood Pressure Mean [Right Arm] 103 Blood Pressure Source [Right Arm] Automatic Cuff Blood Pressure Position [Right Arm] Supine 02 Sat by Pulse Oximetry 96 95 93 L Oxygen Delivery Method Room Air 08/30/21 16:08 08/30/21 16:15 Temperature Temperature Source Pulse Rate 72 70 Pulse Rate [Left Radial] Respiratory Rate Blood Pressure 181/91 H 172/82 H Blood Pressure [Right Arm] Blood Pressure Mean [Right Arm] Blood Pressure Source [Right Arm] Blood Pressure Position [Right Arm] 02 Sat by Pulse Oximetry 92 L 92 L Oxygen Delivery Method - Lab Data Lab Results 08/30/21 15:14: WBC 8.1, RBC 4.48 L, Hgb 12.8 L, Hct 42.2, MCV 94.1 H, MCH 28.6, MCHC 30.4 L, RDW 16.4, Plt Count 316, MPV 8.8, Neut % (Auto) 78.1, Lymph % (Auto) 12.0, Antelope % (Auto) 7.3, Eos % (Auto) 2.0, Baso % (Auto) 0.7, Neut # (Auto) 6.3, Lymph # (Auto) 1.0, Antelope # (Auto) 0.6, Eos # (Auto) 0.2, Baso # (Auto) 0.1 08/30/21 15:14: Sodium 134 L, Potassium 4.2, Chloride 98, Carbon Dioxide 30, Anion Gap 10.2, BUN 16, Creatinine 0.80, Estimated Creat Clear 92, Estimated GFR 98, Est GFR ( Amer) 119, Glucose 236 H, Calcium 8.2 L, Total Bilirubin 0.3, AST 30, ALT 33, Alkaline Phosphatase 140 H, Total Protein 7.1, Albumin 3.3 L, Globulin 3.8 H, Albumin/Globulin Ratio 0.9 L Result diagrams: 08/30/21 15:14 08/30/21 15:14 Orders (Tests/Meds): ED MEDICATIONS Generic Name Dose Route Start Last Admin Trade Name Freq PRN Reason Stop Dose Admin Sodium Chloride 10 ml 08/30/21 14:39 Sodium Chloride 0.9% 10ml Flush Syringe IV 09/29/21 14:38 NEEDED PRN Maintain IV Site Discontinued Medications Generic Name Dose Route Start Last Admin Trade Name Freq PRN Reason Stop Dose Admin Iopamidol 75 ml 08/30/21 16:55 Iopamidol-370 (76%);100ml Bottle IV 08/30/21 16:56 ONCE ONE Morphine Sulfate 4 mg 08/30/21 18:10 Morphine 4mg/Ml Syringe IV 08/30/21 18:11 ONCE ONE Ondansetron HCl 4 mg 08/30/21 18:10 Ondansetron 4mg/2ml Vial IV 08/30/21 18:11 ONCE ONE Oxycodone/Acetaminophen 1 each 08/30/21 14:57 08/30/21 15:01 Oxycodone 5mg W/Apap 325mg Tablet PO 08/30/21 14:58 1 each ONCE ONE Administration - Radiology Data #1 Image(s): Chest Image Reviewed: Yes I reviewed the patient's radiology image, Yes I have reviewed radiologist's interpretation Procedure(s): XR chest portable Accession Number(s): [id number] cc: Vlad North MD; Prem Pandya MD~ FINAL REPORT CLINICAL HISTORY: rib pain, hx of lesion on left side of ribs COMPARISON: 08/07/2021 FINDINGS: A single view of the chest
[2021-08-30 16:01] VITALS: BP 185/101; PULSE 75; O2SAT 93
[2021-08-30 16:08] VITALS: BP 181/91; PULSE 72; O2SAT 92
--- NOTE | 2021-08-30 16:10 | CT_ITS ---
PROCEDURE INFORMATION: Exam: CT Chest With Contrast; Diagnostic Exam date and time: 08/30/2021 4:10 PM Age: 60 years old Clinical indication: Pain; Right-sided; Additional info: Left rib pain, R/O pathologic fracture TECHNIQUE: Imaging protocol: Diagnostic computed tomography of the chest with contrast. Radiation optimization: All CT scans at this facility use at least one of these dose optimization techniques: automated exposure control; mA and/or kV adjustment per patient size (includes targeted exams where dose is matched to clinical indication); or iterative reconstruction. Contrast material: ISOVUE; Contrast volume: 75 ml; Contrast route: IV; COMPARISON: CT CHEST WO CON 07/22/2019 7:59 PM FINDINGS: Thyroid: Prior thyroidectomy. Lungs: There is subpleural atelectasis of the dependent portions of the lungs. Scattered pulmonary nodules are appreciated. For example, a stable 5 mm nodule is seen in the right upper lobe on image 50 series 3. As another example, a stable 3 mm nodule is seen in the right upper lobe on image 43 series 3. As another example, a stable 4 mm nodule is seen in the left upper lobe on image 23 series 3. As another example, a 7 mm nodule is seen in the left upper lobe on image 48 series 3, stable. As another example, a 6 mm nodule is seen in the left lower lobe on image 50 series 3, stable. Similarly, a 5 mm nodule is seen in the left upper lobe on image 57 series 3, stable. As a last example, a 8 mm nodule is seen in the right lower lobe on image 51 series 3, also stable. Mild scarring in the right lower lobe. No acute interstitial or airspace disease is appreciated. Pleural spaces: Unremarkable. No pneumothorax. No pleural effusion. Heart: There is calcification of the aortic valve annulus. There is severe atherosclerotic calcification of the coronary arteries. Heart is of normal size and morphology. There is calcification of the mitral valve annulus. No pericardial thickening or effusion. Pulmonary arteries: Pulmonary arteries normal in course and caliber. Aorta: There is ectasia of the mid ascending thoracic aorta measuring 3.7 cm. The aorta demonstrates mild atherosclerotic calcification. No acute pathology in the aorta. Lymph nodes: No concerning mediastinal, hilar, or axillary adenopathy by CT size criteria. Diaphragm: A small hiatal hernia is present. Gallbladder and bile ducts: Prior cholecystectomy. Bones/joints: Stable focal area of sclerosis in the left humeral head, could be related to a chronic bone infarct. Previously seen metastatic destructive lesion in the posterior segment of the right 6th rib has decreased in size, measuring 6 cm by 2 cm (previously 4.2 cm x 3.4 cm) (image 41 series 3). New destructive metastatic soft tissue mass, invading and destroying the posterior segment of the right 6th rib at the level of the costovertebral junction measuring 2.7 cm x 4.8 cm by 4 cm (image 41 series 3). The mass is extending into and destroying the right transverse process of T6, as well as the right lateral aspect of the T6 vertebral body and T6 right lamina. The lesion appears to partially extend into the central canal at the level of T6. Extensive osseous destruction/invasion to the posterior segment of the left 6th rib, new as compared to the reference examination. Multilevel old/healed right rib fractures are redemonstrated. Multilevel old/healed left rib fractures. Soft tissues: No acute body wall soft tissue findings. Other findings: The visualized intra-abdominal structures demonstrate no acute findings. IMPRESSION: 1. Stable multifocal bilateral pulmonary nodules. These nodules have
[2021-08-30 16:15] VITALS: BP 172/82; PULSE 70; O2SAT 92
[2021-08-30 19:49] VITALS: BP 172/94; PULSE 78; RESP 16; TEMP 36.6; O2SAT 94
== END 2021-08-30 19:53 | disposition home or self-care (01) ==
PROVIDERS: Emergency Provider Emergency Medicine; PCP Family Medicine
DX: R07.81 Pleurodynia (principal); C73 Malignant neoplasm of thyroid gland; C79.9 Secondary malignant neoplasm of unspecified site; I25.10 Atherosclerotic heart disease of native coronary artery without angina pectoris; I25.2 Old myocardial infarction; I10 Essential (primary) hypertension; E78.5 Hyperlipidemia, unspecified; Z87.891 Personal history of nicotine dependence; Z88.8 Allergy status to other drugs, medicaments and biological substances
CPT/HCPCS: 71045; 71260; 80053; 85025; 96375; 99284; J2405

== ENCOUNTER → 2021-12-15 11:54 | Outpatient (CLI) | payer MEDICARE, SELFPAY ==
--- NOTE | 2021-12-15 12:09 | XR_ITS ---
FINAL REPORT CLINICAL HISTORY: ACUTE LL BACK PAIN W/O SCIATICA FINDINGS: Multiple views of the left ribs were obtained. There are multiple chronic posterior right rib fractures. There is a nondisplaced left 10th posterior rib fracture. There is a subacute to chronic left 6th posterior rib fracture. There is no pleural fluid collection or pneumothorax. A single view of the chest demonstrates no acute cardiopulmonary process. IMPRESSION: Nondisplaced left 10th posterior rib fracture. No pneumothorax. Subacute to chronic left 6th posterior rib fracture. Multiple chronic right posterior rib fractures. Reviewed, Interpreted and Dictated by Vlad North III, MD Transcribed by Dallin Lyle Authenticated and [facility]
--- NOTE | 2021-12-15 12:09 | XR_ITS ---
FINAL REPORT CLINICAL HISTORY: ACUTE LL BACK PAIN W/O SCIATICA FINDINGS: 5 views of the lumbar spine were obtained. There is fusion of L4-L5. There is no evidence of fracture or dislocation. The vertebral alignment is normal. There are mild and moderate degenerative changes with osteophytes. No paraspinous soft tissue abnormalities identified. There is mild vascular calcification. IMPRESSION: No acute bony abnormality. Reviewed, Interpreted and Dictated by Vlad North III, MD Transcribed by Dallin Lyle Authenticated and [facility]
[2021-12-15 12:19] LABS: Basophils # 0.1 K/mm3 (0-0.2); Basophils % 0.9 % (0.1-2.0); Eosinophils # 0.4 K/mm3 (0.0-0.4); Eosinophils % 6.2 % (0.1-12.0); Hematocrit 32.8 % (42.0-52.0); Hemoglobin 10.6 g/dL (14.1-18.0); Lymphocytes # 0.7 K/mm3 (0.7-4.5); Lymphocytes % 11.8 % (10-50); Mean Corpuscular HGB Conc 32.4 g/dL (31.8-35.4); Mean Corpuscular Hemoglobin 30.7 pg (27.0-31.2); Mean Corpuscular Volume 94.8 fl (80-94); Mean Platelet Volume 8.7 fl (7.4-10.4); Monocytes # 0.4 K/mm3 (0.1-1.0); Monocytes % 6.6 % (1.7-9.3); Neutrophils # 4.2 K/mm3 (1.8-7.8); Neutrophils % 74.6 % (37.0-80.0); Platelet Count 210 K/mm3 (142-424); Red Blood Count 3.46 M/mm3 (4.60-6.20); Red Cell Distribution Width 20.6 % (11.5-17.5); White Blood Count 5.6 K/mm3 (4.8-10.8)
[2021-12-15 12:39] LABS: Chloride 107 mmol/L (98-107)
[2021-12-15 12:40] LABS: Potassium 4.6 mmoL/L (3.5-5.1); Sodium 136 mmol/L (136-145)
[2021-12-15 12:42] LABS: Blood Urea Nitrogen 22 mg/dl (9-20); Estimated Glomerular Filt Rate 98 ml/min (>60); GFR (African American) 119 ML/MIN (>60)
[2021-12-15 12:43] LABS: Anion Gap 8.6 mEq/L (5-15); Calcium 7.7 mg/dl (8.4-10.2); Carbon Dioxide 25 mmol/L (22.0-30.0); Glucose 177 mg/dl (74-100); Iron 34 ug/dL (49-181); Magnesium 1.3 mg/dl (1.6-2.3)
== END ==
LOC: RAD 11:56
PROVIDERS: PCP Family Medicine; Visit Provider Family Medicine
DX: M54.6 Pain in thoracic spine (principal); M54.50 Low back pain, unspecified; D64.9 Anemia, unspecified; E83.42 Hypomagnesemia; R39.198 Other difficulties with micturition
CPT/HCPCS: 36415; 71101; 72110; 80048; 83540; 83735; 85025

== ENCOUNTER 2021-12-28 10:03 | Outpatient (CLI) | payer MEDICARE, SELFPAY ==
[2021-12-28 10:45] VITALS: BP 165/73; PULSE 74; RESP 18; O2SAT 98
[2021-12-28 11:00] LABS: POC Glucose,Bedside 144 (70-110)
[2021-12-28 11:45] VITALS: BP 165/79; PULSE 73; RESP 18
[2021-12-28 12:45] VITALS: BP 144/66; PULSE 67; RESP 16
[2021-12-28 14:15] VITALS: BP 155/70; PULSE 71; RESP 16
== END 2021-12-28 14:40 | disposition home or self-care (01) ==
LOC: INF 10:04
PROVIDERS: PCP Family Medicine; Visit Provider Family Medicine
DX: D50.0 Iron deficiency anemia secondary to blood loss (chronic) (principal); E11.9 Type 2 diabetes mellitus without complications; Z79.4 Long term (current) use of insulin
CPT/HCPCS: 82962; 96365; 96366; J1756

== ENCOUNTER 2022-01-02 22:30 | Inpatient (IN) | payer MEDICARE, SELFPAY ==
[2022-01-02 22:43] VITALS: BP 167/94; PULSE 121; RESP 18; TEMP 39.3; O2SAT 94; BMI 42.5
--- NOTE | 2022-01-02 22:53 | XR_ITS ---
PROCEDURE INFORMATION: Exam: XR Chest Exam date and time: 01/02/2022 10:55 PM Age: 61 years old Clinical indication: Patient HX: Extremely large patient with cough TECHNIQUE: Imaging protocol: Radiologic exam of the chest. Views: 1 view. COMPARISON: CR XR RIBS LT MIN 3V W CXR1V 12/15/2021 12:29 PM FINDINGS: Lungs: Granulomatous changes. In the lung bases there is mild atelectasis and scarring. Pleural spaces: Unremarkable. No pleural effusion. No pneumothorax. Heart/Mediastinum: There is cardiomegaly. Bones/joints: Unremarkable. IMPRESSION: No acute findings.
[2022-01-02 22:57] LABS: Microscopic, Urine URINE MICROSCOPIC (MICROSCOPIC)
[2022-01-02 23:01] VITALS: BP 142/61; PULSE 117; RESP 14; O2SAT 95
[2022-01-02 23:06] LABS: Amylase 30 U/L (30-110); Anion Gap 9.2 mEq/L (5-15); Blood Urea Nitrogen 16 mg/dl (9-20); Calcium 7.5 mg/dl (8.4-10.2); Carbon Dioxide 25 mmol/L (22.0-30.0); Chloride 108 mmol/L (98-107); Creatinine Clearance Estimated 90 mL/min (50-200); Estimated Glomerular Filt Rate 85 ml/min (>60); GFR (African American) 103 ML/MIN (>60); Glucose 69 mg/dl (74-100); Lipase 16 U/L (23-300); Potassium 3.2 mmoL/L (3.5-5.1); Sodium 139 mmol/L (136-145)
--- NOTE | 2022-01-02 23:10 | PC.NURSE ---
PT WITH 1 EPISODE OF EMESIS- PT CLEANED REPOSITIONED. FAMILY AT BEDSIDE. SHAYYM.
[2022-01-02 23:13] LABS: Magnesium 0.9 mg/dl (1.6-2.3)
[2022-01-02 23:16] LABS: Lactic Acid 1.1 mmol/L (0.7-2.1)
[2022-01-02 23:18] LABS: Appearance,Urine CLEAR (Clear); Bilirubin,Urine Negative (Negative); Blood, Urine TRACE-I (Negative); Color,Urine YELLOW (Yellow); Glucose,Urine (UA) Negative (Negative); Ketones,Urine Negative (Negative); Leukocyte Esterase,Urine Negative (Negative); Nitrate,Urine Negative (Negative); PH,Urine 5.5 (5.0-8.5); Protein,Urine 2+ (Negative); Specific Gravity, Urine 1.025 (1.005-1.030); Urobilinogen,Urine 0.2 EU/dl (0.2)
--- NOTE | 2022-01-02 23:18 | PC.NURSE ---
MD MADE AWARE OF MG LEVEL.
[2022-01-02 23:23] LABS: Procalcitonin 0.075 ng/mL (0.0-2.0)
[2022-01-02 23:27] LABS: Basophils % 0.6 % (0.1-2.0); Eosinophils # 0.2 K/mm3 (0.0-0.4); Eosinophils % 2.2 % (0.1-12.0); Lymphocytes # 0.4 K/mm3 (0.7-4.5); Lymphocytes % 5.1 % (10-50); Mean Corpuscular HGB Conc 34.3 g/dL (31.8-35.4); Mean Corpuscular Volume 90.2 fl (80-94); Mean Platelet Volume 8.1 fl (7.4-10.4); Monocytes # 0.5 K/mm3 (0.1-1.0); Monocytes % 6.5 % (1.7-9.3); Neutrophils # 6.2 K/mm3 (1.8-7.8); Neutrophils % 85.5 % (37.0-80.0); Platelet Count 202 K/mm3 (142-424); Red Blood Count 3.55 M/mm3 (4.60-6.20); Red Cell Distribution Width 19.8 % (11.5-17.5); White Blood Count 7.3 K/mm3 (4.8-10.8)
[2022-01-02 23:28] LABS: RBC,Urine Occasional #/hpf (0-3); WBC,Urine Occasional #/hpf (0-3)
[2022-01-02 23:30] VITALS: BP 144/61; PULSE 117; RESP 11; O2SAT 95
[2022-01-02 23:31] LABS: MANUAL DIFFERENTIAL MANUAL DIFFERENTIAL (MANUAL DIFF)
[2022-01-02 23:45] VITALS: BP 144/61; PULSE 113; RESP 14; TEMP 38.2; O2SAT 95
--- NOTE | 2022-01-02 23:53 | HMH.EDNVD ---
ED Disposition Clinical Impression: COVID-19, Type 2 diabetes mellitus with diabetic neuropathy, with long-term current use of insulin, Thyroid cancer, History of left below knee amputation Obesity Qualifiers: Obesity type: due to excess calories Obesity classification: adult class 3 (BMI >= 40) Serious obesity comorbidity presence: with serious comorbidity Body mass index: BMI 40.0-44.9 Qualified Code(s): E66.01 - Morbid (severe) obesity due to excess calories; Z68.41 - Body mass index [BMI] 40.0-44.9, adult Disposition: Admitted As Inpatient Condition on Discharge: Fair - Critical Care Critical Care Time: No Attestation: On 01/02/22, the high probability of a clinically significant, sudden or life threatening deterioration of the following system(s) required my full and direct attention, intervention and personal management. The time I documented below is in addition to time spent performing reported procedures but includes the following listed in this critical care notation. Medical Decision Making - Medical Records Medical records reviewed: Yes: I reviewed the patient's medical records. - Mio Inquiry Pt receiving controlled substance: No Vital Signs: 01/02/22 22:43 01/02/22 23:01 01/02/22 23:30 Temperature 102.7 F H Temperature Source Rectal Pulse Rate 117 H 117 H Pulse Rate [Apical] 121 H Respiratory Rate 18 14 11 L Blood Pressure 142/61 H 144/61 H Blood Pressure [Right Arm] 167/94 H Blood Pressure Mean Blood Pressure Mean [Right Arm] 118 Blood Pressure Source [Right Arm] Automatic Cuff Blood Pressure Position Blood Pressure Position [Right Arm] Sitting 02 Sat by Pulse Oximetry 94 L 95 95 Oxygen Delivery Method Room Air Nasal Cannula Nasal Cannula Oxygen Flow Rate (LPM) 2 2 01/02/22 23:45 01/03/22 00:00 01/03/22 02:30 Temperature 100.8 F H 98.1 F Temperature Source Oral Oral Pulse Rate 113 H 83 Pulse Rate [Apical] Respiratory Rate 14 18 Blood Pressure 144/61 H 132/59 L 96/47 L Blood Pressure [Right Arm] Blood Pressure Mean 76 Blood Pressure Mean [Right Arm] Blood Pressure Source [Right Arm] Blood Pressure Position Sitting Blood Pressure Position [Right Arm] 02 Sat by Pulse Oximetry 95 Oxygen Delivery Method Room Air Oxygen Flow Rate (LPM) 2 - Lab Data Lab results reviewed: Yes: I reviewed the patient's lab results. Lab Results 01/02/22 22:42: Chlamy pneumoniae PCR Not detected, Adenovirus (PCR) Not detected, B. pertussis DNA (PCR) Not detected, Coronavirus OC43 (PCR) Not detected, Coronavirus HKU1 (PCR) Not detected, Coronavirus 229E (PCR) Not detected, SARS-CoV-2 (PCR) Detected A, Coronavirus NL63 (PCR) Not detected, Human Metapneumovir PCR Not detected, Influenza A (H1) PCR Not detected, Influ A (H1N1/09) PCR Not detected, Influenza A (H3) PCR Not detected, Influenza Type A (PCR) Not detected, Influenza Type B (PCR) Not detected, M. pneumoniae (PCR) Not detected, Parainfluenza 1 (PCR) Not detected, Parainfluenza 2 (PCR) Not detected, Parainfluenza 3 (PCR) Not detected, Parainfluenza 4 (PCR) Not detected, RSV (PCR) Not detected, Entero/Rhino (PCR) Not detected 01/02/22 22:50: Urine Color Yellow, Urine Appearance Clear, Urine pH 5.5, Ur Specific [place] 1.025, Urine Protein 2+, Urine Glucose (UA) Negative, Urine Ketones Negative, Urine Blood Trace-i, Urine Nitrate Negative, Urine Bilirubin Negative, Urine Urobilinogen 0.2, Ur Leukocyte Esterase Negative, Urine RBC Occasional, Urine WBC Occasional, Ur Squamous Epith Cells 3-5, Urine Bacteria None 01/02/22 22:50: WBC 7.3, RBC 3.55 L, Hgb 11.0 L, Hct 32.0 L, MCV 90.2, MCH 31.0, MCHC 34.3, RDW 19.8 H, Plt Count 202, MPV 8.1, Neut % (Auto) 85.5 H, Lymph % (Auto) 5.1 L, Brooks % (Auto) 6.5, Eos % (Auto) 2.2, Baso % (Auto) 0.6, Neut # (Auto) 6.2, Lymph # (Auto) 0.4 L, Brooks # (Auto) 0.5, Eos # (Auto) 0.2, Baso # (Auto) 0.0, Total Counted 100, Neutrophils % (Manual) 93 H, Lymphocytes % (Manual) 3 L, Monocytes %
[2022-01-03] VITALS (13 sets, daily range): BP systolic 96–158; BP diastolic 44–96; PULSE 78–98; RESP 11–22; TEMP 36.4–37.3; O2SAT 91–97; BMI 47.0
[2022-01-03 00:11] LABS: Eosinophils % 3 % (0-3); Lymphocytes % 3 % (10-50); Monocytes % 1 % (2-9); Neutrophils % 93 % (42-76); Platelet Estimate Normal; Stomatocytes 1+; Total Cells Counted 100
[2022-01-03 00:21] LABS: Alanine Aminotransferase 41 U/L (12-78); Bilirubin,Unconjugated 0.3 mg/dL (0.0-1.1)
[2022-01-03 00:22] LABS: Albumin Level 3.4 g/dl (3.5-5.0); Alkaline Phosphatase 101 U/L (38-126); Aspartate Amino Transferase 48 U/L (17-59); Bilirubin,Direct 0.1 mg/dl (0.0-0.4); Bilirubin,Indirect 0.2 mg/dL (0.0-0.9); Bilirubin,Total 0.3 mg/dl (0.2-1.3); Total Protein,Serum 6.8 g/dl (6.3-8.2)
--- NOTE | 2022-01-03 00:24 | PC.NURSE ---
Dr. Pandya paged for Dr. Liriano
[2022-01-03 00:25] LABS: Adenovirus,PCR Not Detected (NotDetected); Bordetella Pertussis Not Detected (NotDetected); Chlamydophila Pneumoniae, PCR Not Detected (NotDetected); Coronavirus 229E Not Detected (NotDetected); Coronavirus NL63 Not Detected (NotDetected); Coronavirus OC43 Not Detected (NotDetected); Coronovirus HKU1,PCR Not Detected (NotDetected); Human Metapneumovirus Not Detected (NotDetected); Influenza A, PCR Not Detected (NotDetected); Influenza AH1, 2009 Not Detected (NotDetected); Influenza AH1, PCR Not Detected (NotDetected); Influenza AH3,PCR Not Detected (NotDetected); Influenza B, PCR Not Detected (NotDetected); Mycoplasma Pneumoniae, PCR Not Detected (NotDetected); Parainfluenza 1, PCR Not Detected (NotDetected); Parainfluenza 2, PCR Not Detected (NotDetected); Parainfluenza 3, PCR Not Detected (NotDetected); Parainfluenza 4, PCR Not Detected (NotDetected); Respiratory Syncytial Virus Not Detected (NotDetected); Rhinovirus/Enterovirus Not Detected (NotDetected)
--- NOTE | 2022-01-03 00:29 | PC.NURSE ---
Patient admitted to [address] Gomez with Dx of acute ferbile illness.
[2022-01-03 00:45] LABS: Erythrocyte Sedimentation Rate 126 mm/hr (0-20)
--- NOTE | 2022-01-03 02:06 | PC.NURSE ---
Called Kirsten in lab at 0205 to check status of covid swab. Was told it would be another 20 minutes.
--- NOTE | 2022-01-03 02:24 | PC.NURSE ---
PT UPDATED WITH EXPECTED WAIT TIMES AND PLAN OF CARE. PT ASSISTED WITH REPOSITIONING. NO COMPLAINTS VOICED.
[2022-01-03 02:36] LABS: Coronavirus 19, PCR Detected (NotDetected)
--- NOTE | 2022-01-03 02:39 | PC.NURSE ---
LAKESHIA MENDOZA UPDATED WITH LAB RESULTS.
--- NOTE | 2022-01-03 03:33 | PC.NURSE ---
PT ARRIVED TO FLOOR VIA STRETCHER AT THIS TIME
[2022-01-03 04:39] LABS: Adenovirus F 40/41, stool Not Detected (NotDetected); Astrovirus Not Detected (NotDetected); Campylobacter Not Detected (NotDetected); Clostridium Difficile A/B, PCR Not Detected (NotDetected); Cryptosporidium Not Detected (NotDetected); Cyclospora Cayetanesis Not Detected (NotDetected); Entamoeba histolytica Not Detected (NotDetected); Enteroaggregative E coli Not Detected (NotDetected); Enteropathogenic E coli Not Detected (NotDetected); Enterotoxigenic E coli Not Detected (NotDetected); Giardia lamblia Not Detected (NotDetected); Norovirus Not Detected (NotDetected); Plesimonas Shigalloides, PCR Not Detected (NotDetected); Rotavirus A Not Detected (NotDetected); Salmonella, PCR Not Detected (NotDetected); Sapovirus Not Detected (NotDetected); Shiga-like toxin E coli Not Detected (NotDetected); Shigella Enterovasive E coli Not Detected (NotDetected); Vibrio Cholerae Not Detected (NotDetected); Vibrio, PCR Not Detected (NotDetected); Yersinia Entercolitica, PCR Not Detected (NotDetected)
--- NOTE | 2022-01-03 05:06 | PC.WOUNDNOTE ---
took pictures of pt's stage II and suspected DTI but will have to have day RN upload them as something is wrong with camera at this time
--- NOTE | 2022-01-03 07:06 | P.CONPHA_ITS ---
[facility] Pharmacy VTE Monitoring - Patient Demographics Admission date: 01/02/22 Report Date: 01/03/22 Time: 07:06 Allergies/Adverse Reactions: Patient Allergies cefepime Allergy (Severe, Verified 08/30/21 14:11) BLEEDING SORES pantoprazole [From Protonix] Allergy (Severe, Verified 08/30/21 14:11) Diarrhea piperacillin [From ZOSYN] Allergy (Severe, Verified 08/30/21 14:11) RENAL FAILURE tazobactam [From ZOSYN] Allergy (Severe, Verified 08/30/21 14:11) RENAL FAILURE vancomycin [VANCOMYCIN] Allergy (Severe, Verified 08/30/21 14:11) RENAL FAILURE ciprofloxacin [From CIPRO] Allergy (Intermediate, Verified 08/30/21 14:11) JOINT PAIN doxazosin Allergy (Intermediate, Verified 08/30/21 14:11) LOW BP/DEHYDRATION exenatide [From BYDUREON] Allergy (Intermediate, Verified 08/30/21 14:11) Unknown allergy reaction hydralazine [HYDRALAZINE] Allergy (Intermediate, Verified 08/30/21 14:11) LOW BP/DEHYDRATION nifedipine Allergy (Intermediate, Verified 08/30/21 14:11) LOW BP/DEHYDRATION pioglitazone [From ACTOS] Allergy (Intermediate, Verified 08/30/21 14:11) CHEST CONGESTION rosiglitazone [From AVANDIA] Allergy (Intermediate, Verified 08/30/21 14:11) CHEST CONGESTION sulfamethoxazole [From BACTRIM] Allergy (Intermediate, Verified 08/30/21 14:11) JOINT SWELLING trimethoprim [From BACTRIM] Allergy (Intermediate, Verified 08/30/21 14:11) JOINT SWELLING sucralfate [From CARAFATE] Allergy (Unknown, Verified 08/30/21 14:11) Unknown allergy reaction carvedilol Adverse Reaction (Verified 08/30/21 14:11) Difficulty Breathing hydromorphone [From Dilaudid] Adverse Reaction (Verified 08/30/21 14:11) Vomiting Height: 1.91 m Weight: 171.413 kg Patient Problems: Current Active Problems Obesity (Chronic) COVID-19 (Acute) Type 2 diabetes mellitus with diabetic neuropathy, with long-term current use of insulin (Chronic) Thyroid cancer (Chronic) History of left below knee amputation (Chronic) - VTE Risk Labs: VTE Related Lab Results Hgb 11.0 g/dL (14.1-18.0) L 01/02/22 22:50 Hct 32.0 % (42.0-52.0) L 01/02/22 22:50 Plt Count 202 K/mm3 (142-424) 01/02/22 22:50 BUN 16 mg/dl (9-20) 01/02/22 22:50 Creatinine 0.90 mg/dl (0.66-1.25) 01/02/22 22:50 Estimated Creat Clear 90 mL/min (50-200) 01/02/22 22:50 - Prophylaxis VTE Prophylaxis Ordered?: Yes Types of VTE Prophylaxis: Pharmacological Pharmacologic Type: Other (XARELTO)
[2022-01-03 07:55] LABS: Anion Gap 9.6 mEq/L (5-15); Basophils % 0.5 % (0.1-2.0); Blood Urea Nitrogen 19 mg/dl (9-20); Calcium 6.9 mg/dl (8.4-10.2); Carbon Dioxide 24 mmol/L (22.0-30.0); Chloride 109 mmol/L (98-107); Creatinine Clearance Estimated 90 mL/min (50-200); Eosinophils # 0.1 K/mm3 (0.0-0.4); Eosinophils % 1.3 % (0.1-12.0); Estimated Glomerular Filt Rate 85 ml/min (>60); GFR (African American) 103 ML/MIN (>60); Glucose 73 mg/dl (74-100); Hematocrit 29.2 % (42.0-52.0); Hemoglobin 9.9 g/dL (14.1-18.0); Lymphocytes # 0.5 K/mm3 (0.7-4.5); Lymphocytes % 9.2 % (10-50); Mean Corpuscular Hemoglobin 30.6 pg (27.0-31.2); Mean Corpuscular Volume 90.2 fl (80-94); Mean Platelet Volume 8.2 fl (7.4-10.4); Monocytes # 0.6 K/mm3 (0.1-1.0); Neutrophils # 4.1 K/mm3 (1.8-7.8); Neutrophils % 76.9 % (37.0-80.0); Platelet Count 186 K/mm3 (142-424); Potassium 3.6 mmoL/L (3.5-5.1); Red Blood Count 3.24 M/mm3 (4.60-6.20); Sodium 139 mmol/L (136-145); White Blood Count 5.3 K/mm3 (4.8-10.8)
--- NOTE | 2022-01-03 08:39 | HMH.HP ---
*Admission Date: 01/02/22 <Lily Bender - 01/03/22 09:09> *Chief complaint: Nausea vomiting and diarrhea. <Lily Bender - 01/03/22 09:09> *History of present illness: Mr. Worthy is a 61-year-old male patient with a complicated medical history which includes type 2 diabetes mellitus, hypertension, asthma, arthritis, metastatic follicular thyroid carcinoma, DVT/pulmonary emboli. ASCVD status post coronary stent, peptic ulcer disease, and bilateral below the knee amputations who presented to [facility] via EMS after experiencing nausea and vomiting with diarrhea throughout the day. He states his symptoms started the previous 2 days with a sore throat and cough. He felt badly all weekend with fevers and chills and body aches. The vomiting and the diarrhea started yesterday. In the emergency room fever was found to be 102.7. He was tachycardic and with Tylenol fever did decrease to 98.1. He received a bolus of fluids and was started on doxycycline. He also received acetaminophen, famotidine IV, Reglan IV and Zofran IV. Chest x-ray showed no acute findings. Laboratory data showed a white blood cell count of 7,300 with a hemoglobin of 11 and hematocrit of 32 with a repeat this morning showing hemoglobin at 9.9 and hematocrit of 29.2. Blood chemistries show sodium of 139 with a potassium of 3.2 and this morning a.m. labs show a potassium of 3.6. Renal function is normal. Hg++ is low at 0.9. Amylase and lipase are not elevated. Diarrhea panel was negative. He did test COVID positive. This a.m. he states his biggest complaint is his back pain. He had some diarrhea and vomiting in the emergency room. He arrived to his room around 4 AM and has not vomited or had diarrhea since his transfer. He was able to eat breakfast and denies nausea at present. He states he feels better since receiving the IV antibiotic in the emergency room. <Lily Bender - 01/03/22 09:09> [facility] History Medical History: Reports:: Asthma, Atherosclerotic Heart Disease, Atrial Fibrillation, Cancer (THYROID; metastatic), Congestive Heart Failure, Coronary Artery Disease, Deep Vein Thrombosis, Diabetes Mellitus Type 2, Gastroesophageal Reflux Disease(GERD), Gastrointestinal Bleed, Heart Murmur, Hyperlipidemia, Hypertension, MRSA, Myocardial Infarction, Palpitations, Peripheral Artery Disease, Peripheral Vascular Disease, Pulmonary Embolism, Ulcer Denies:: Diabetes Mellitus Type 1, Internal Pacemaker, Seizures <BenderLily 01/03/22 09:09> *Have you ever received a pneumonia vaccine?: No <Shilpi Benderhy 01/03/22 09:09> *Have you received a flu vaccine this season?: No <BenderLily 01/03/22 09:09> Other Medical History: Reports: Anemia, Arthritis, Cataracts, Chemotherapy, Hoarseness, Hormone Therapy, Hypothyroidism, Radiation Therapy, Sinus Problems, Thyroid Disease, Other. Denies: Blood Transfusion Reaction <BenderLily 01/03/22 09:09> Laterality Cases: Left: Other, Bilateral: Cataract, Tonsillectomy <BenderLily 01/03/22 09:09> Other Surgeries: Yes: Cancer Surgery, Cardiac Catheterization, Cardiac Surgery, Cholecystectomy, Colonoscopy, Coronary Stent, EGD, Thyroidectomy, Other (VASECTOMY,TUMOR REMOVED FROM SPINE). No: Pacemaker <BenderLily 01/03/22 09:09> Amputation: Yes (Bilateral lower extremity) <BenderLily 01/03/22 09:09> Fractures: Yes <BenderLily 01/03/22 09:09> - *Social History Smoking Status: Former smoker <BenderLily 01/03/22 09:09> Tobacco Type: cigarettes <BenderLily 01/03/22 09:09> # Packs/Day (cigarettes): 1 <BenderLily 01/03/22 09:09> #Yrs smoked (if former smoker): 25 <BenderShilpiLily 01/03/22 09:09> Alcohol Intake: current <Shilpi Benderhy 01/03/22 09:09> Alcohol Intake Frequency:: 0-2 drinks per day <Shilpi Benderhy 01/03/22 09:09> Substance Use Type: denies use <BenderLily cisneros 01/03/22 09:09> *Occupational Status:: disabled <Lily Bender 01/03/22 09:09> Housing: house <[place]
--- NOTE | 2022-01-03 09:26 | HMH.PULMCON ---
*Admission Date: 01/02/22 *Reason for consult:: COVID-19 pneumonia:Acute hypoxic respiratory failure. *History of present illness: Mr. Worthy is a 61-year-old male, diabetes, below-knee amputation, prior history of CAD, atrial fibrillation on long-term anticoagulation presented to the hospital with worsening nausea vomiting and respiratory distress and found to be In COVID-19 pneumonia and pulmonary was called for further management. [facility] History Medical History: Reports:: Asthma, Atherosclerotic Heart Disease, Atrial Fibrillation, Cancer (THYROID; metastatic), Congestive Heart Failure, Coronary Artery Disease, Deep Vein Thrombosis, Diabetes Mellitus Type 2, Gastroesophageal Reflux Disease(GERD), Gastrointestinal Bleed, Heart Murmur, Hyperlipidemia, Hypertension, MRSA, Myocardial Infarction, Palpitations, Peripheral Artery Disease, Peripheral Vascular Disease, Pulmonary Embolism, Ulcer Denies:: Diabetes Mellitus Type 1, Internal Pacemaker, Seizures *Have you ever received a pneumonia vaccine?: No *Have you received a flu vaccine this season?: No Other Medical History: Reports: Anemia, Arthritis, Cataracts, Chemotherapy, Hoarseness, Hormone Therapy, Hypothyroidism, Radiation Therapy, Sinus Problems, Thyroid Disease, Other. Denies: Blood Transfusion Reaction Laterality Cases: Left: Other, Bilateral: Cataract, Tonsillectomy Other Surgeries: Yes: Cancer Surgery, Cardiac Catheterization, Cardiac Surgery, Cholecystectomy, Colonoscopy, Coronary Stent, EGD, Thyroidectomy, Other (VASECTOMY,TUMOR REMOVED FROM SPINE). No: Pacemaker Amputation: Yes (Bilateral lower extremity) Fractures: Yes - *Social History Smoking Status: Former smoker Tobacco Type: cigarettes # Packs/Day (cigarettes): 1 #Yrs smoked (if former smoker): 25 Alcohol Intake: current Alcohol Intake Frequency:: 0-2 drinks per day Substance Use Type: denies use *Occupational Status:: disabled Housing: house Household Members: spouse *Travel in the last 8 weeks: None Family Hx:: Adopted ROS - Cons Reports anorexia, Reports body ache(s), Reports fatigue, Reports lack of energy - Eyes Denies change in vision - ENT Reports change in voice, Denies nasal obstruction - Card Reports shortness of breath, Reports shortness of breath with activity - Resp Respiratory: Reports chest congestion, Reports cough, Reports non-productive cough, Denies pain with breathing, Reports snoring, Reports wheezing - GI Gastrointestingal: Reports: nausea - [place] Musculoskeletal: Reports muscle weakness - Psych Denies thoughts of hurting/killing others, Denies thoughts of hurting/killing yourself Meds Home Medications Medication Instructions Recorded Confirmed Type Potassium Chloride 10 meq PO BID 01/08/20 01/02/22 History cyclobenzaprine 5 mg tablet 5 mg PO BIDP PRN tab 01/20/20 01/02/22 History Amlodipine Besylate 2.5 mg PO HS 06/01/20 01/02/22 History Albuterol Sulfate [Proair Hfa] 2 puff IH Q4HP PRN 01/26/21 01/03/22 History Levothyroxine Sodium 274 mcg PO DAILY 01/27/21 01/02/22 History [Levothyroxine 137mcg (0.137mg) Tab] lisinopril 40 mg tablet 40 mg PO DAILY tab 02/15/21 01/02/22 History Acetaminophen [Acetaminophen 325mg 1,300 mg PO BID 08/30/21 01/02/22 History tab] Atorvastatin Calcium [Lipitor 20mg 20 mg PO DAILY 08/30/21 01/02/22 History Tab] Gabapentin [Neurontin 600mg 600 mg PO BID 08/30/21 01/02/22 History tablet] Insulin Detemir [Levemir 100 40 unit SQ DAILY 08/30/21 01/02/22 History units/mL 10mL vial] Nebivolol HCl [Bystolic] 20 mg PO HS 08/30/21 01/02/22 History Oxycodone HCl/Acetaminophen 1 each PO Q4HP PRN 08/30/21 01/03/22 History [Percocet 10-325 mg Tablet] Rivaroxaban [Xarelto 20mg Tablet*] 20 mg PO QPMWITHMEAL 08/30/21 01/03/22 History Trazodone HCl 100 mg PO HS 08/30/21 01/02/22 History hydroCHLOROthiazide 25 mg PO DAILY 08/30/21 01/02/22 History [Hydrochlorothiazide] Cabozantinib S-Malate [Cabometyx] 60 mg PO DAILY 06
--- NOTE | 2022-01-03 09:45 | HMH.PHAINT ---
MEDICATION RECONCILIATION COMPLETED ON PATIENT USING EXTERNAL FILL HISTORY FROM PHARMACY. -PATIENCE VALDOVINOS, DEYAD
--- NOTE | 2022-01-03 10:47 | XR_ITS ---
FINAL REPORT CLINICAL HISTORY: PNM, covid + COMPARISON: 01/02/2022 FINDINGS: SINGLE-VIEW CHEST There is cardiomegaly. The mediastinum is normal. There are persistent bilateral pulmonary opacities consistent with bilateral pneumonia. There is no pneumothorax. IMPRESSION: Persistent bilateral pneumonia. Reviewed, Interpreted and Dictated by Vlad North III, MD Transcribed by Lily Chauhan Authenticated and [facility]
[2022-01-03 17:16] LABS: POC Glucose,Bedside 187 (70-110)
--- NOTE | 2022-01-03 18:31 | PC.NURSE ---
Patient weaned to room air with no complications. VS stable. Patient complained once of pain in lower back, oxycodone given and relief noted. Remdesivir started and patient tolerating well.
[2022-01-03 18:55] LABS: D-Dimer 1.08 ug/mL (0.0-0.5)
--- NOTE | 2022-01-03 21:06 | PC.NURSE ---
pt rounded on and stated they did not need anything at this time. will continue to check on pt.
[2022-01-03 22:00] LABS: POC Glucose,Bedside 193 (70-110)
[2022-01-04 04:15] VITALS: BMI 47.0
[2022-01-04 05:00] VITALS: BP 140/82; PULSE 93; RESP 20; TEMP 37.1; O2SAT 94
[2022-01-04 06:31] VITALS: O2SAT 86
[2022-01-04 06:43] LABS: Alanine Aminotransferase 36 U/L (12-78); Albumin Level 2.7 g/dl (3.5-5.0); Albumin/Globulin Ratio 0.9 (1.1-1.8); Alkaline Phosphatase 87 U/L (38-126); Anion Gap 8.7 mEq/L (5-15); Aspartate Amino Transferase 39 U/L (17-59); Blood Urea Nitrogen 20 mg/dl (9-20); Calcium 6.7 mg/dl (8.4-10.2); Carbon Dioxide 23 mmol/L (22.0-30.0); Chloride 110 mmol/L (98-107); Creatinine Clearance Estimated 90 mL/min (50-200); Estimated Glomerular Filt Rate 98 ml/min (>60); GFR (African American) 118 ML/MIN (>60); Glucose 166 mg/dl (74-100); Potassium 3.7 mmoL/L (3.5-5.1); Sodium 138 mmol/L (136-145); Total Protein,Serum 5.7 g/dl (6.3-8.2)
[2022-01-04 06:44] LABS: Bilirubin,Total < 0.1 mg/dl (0.2-1.3)
[2022-01-04 06:55] LABS: POC Glucose,Bedside 170 (70-110)
--- NOTE | 2022-01-04 07:21 | PC.NURSE ---
Addendum entered by Roxane Judd RN 01/04/22 07:22: RT notified this RN pt was 87-88% on RA, 2 L nc was applied. Original Note: No acute changes. Pt did not voice any complaints to staff. Call light within reach. Tolerating RA well with sats >90%
[2022-01-04 08:00] VITALS: BP 163/61; PULSE 77; RESP 18; TEMP 36.6; O2SAT 100; O2SAT 92
--- NOTE | 2022-01-04 08:19 | HMH.ACPN2 ---
<Lily Bender - Last Filed: 01/04/22 08:19> Internal Medicine - PN: Subj *Date: 01/04/22 *Time: 08:19 Interval history: Patient does not feel as well today. He is short of breath just lying in the bed. O2 was restarted at 2 L/min per nasal cannula. He is able to eat. He is voiding QS. Back pain is at baseline. Chest x-ray shows persistent pneumonia. CBC is pending. Blood chemistries show sodium 138 potassium 3.7. Renal function is normal. Calcium is low at 6.7 Patient was seen by Dr. Sherman yesterday Noted chest x-ray showing bilateral diffuse patchy airspace disease the right greater than the left With underlying groundglass opacities and interstitial lung disease. Plan is to start patient on oxygen as needed, proning protocol, continue with remdesivir x5-day along with dexamethasone until discharge; continue doxycycline. Also Combivent every 6 hours. Exam Vital signs and Labs for Last 24 Hours: Temp Pulse Resp BP Pulse Ox 97.9 F 77 18 163/61 H 100 01/04/22 08:00 01/04/22 08:00 01/04/22 08:00 01/04/22 08:00 01/04/22 08:00 Laboratory Results - last 24 hr 01/03/22 10:59: D-Dimer 1.08 H 01/03/22 10:59: C-Reactive Protein 112.0 H 01/03/22 16:57: POC Glucose 187 H 01/03/22 21:38: POC Glucose 193 H 01/04/22 06:10: Sodium 138, Potassium 3.7, Chloride 110 H, Carbon Dioxide 23, Anion Gap 8.7, BUN 20, Creatinine 0.80, Estimated Creat Clear 90, Estimated GFR 98, Est GFR ( Amer) 118, Glucose 166 H D, Calcium 6.7 L, Total Bilirubin < 0.1 L, AST 39, ALT 36, Alkaline Phosphatase 87, Total Protein 5.7 L, Albumin 2.7 L D, Globulin 3.0, Albumin/Globulin Ratio 0.9 L 01/04/22 06:22: POC Glucose 170 H I & O for Last 24 hours: Intake & Output 01/01/22 01/02/22 01/03/22 01/04/22 11:59 11:59 11:59 11:59 Intake Total 1810 / 1810 1678 / 1678 Output Total 100 / 100 2049 Balance 1710 / 1710 -372 / -372 Weight 377 lb 14.4 oz 378 lb 7 oz Microbiology Reports for the Last 24 Hours: Microbiology 01/02/22 22:50 Blood Blood Culture - Preliminary 01/03/22 12:00 Sputum - Expectorated Sputum Gram Stain - Final - Constitutional no acute distress - *Routine Respiratory Exam Present: wheezes, crackles (Wheezing and crackles on the right.) - *Routine Cardiovascular Exam Present: RRR - *Routine Abdominal Exam Present: soft, normoactive bowel sounds. Absent: tenderness Assessment and Plan (1) COVID-19 Status: Acute Category: Medical Code(s): U07.1 - COVID-19 (2) Nausea vomiting and diarrhea Status: Acute Category: Medical Code(s): R11.2 - Nausea with vomiting, unspecified; R19.7 - Diarrhea, unspecified (3) Obesity Status: Chronic Qualifiers: Obesity type: due to excess calories Obesity classification: adult class 3 (BMI >= 40) Serious obesity comorbidity presence: with serious comorbidity Body mass index: BMI 40.0-44.9 Qualified Code(s): E66.01 - Morbid (severe) obesity due to excess calories; Z68.41 - Body mass index [BMI] 40.0-44.9, adult Category: Medical Code(s): E66.9 - Obesity, unspecified (4) Type 2 diabetes mellitus with diabetic neuropathy, with long-term current use of insulin Status: Chronic Category: Medical Code(s): E11.40 - Type 2 diabetes mellitus with diabetic neuropathy, unspecified; Z79.4 - [facility] (current) use of insulin (5) Anemia Status: Chronic Qualifiers: Anemia type: iron deficiency Iron deficiency anemia type: chronic blood loss Qualified Code(s): D50.0 - Iron deficiency anemia secondary to blood loss (chronic) Category: Medical Code(s): D64.9 - Anemia, unspecified (6) History of cancer chemotherapy Status: Chronic Category: Medical Code(s): Z92.21 - Personal history of antineoplastic chemotherapy (7) History of peptic ulcer disease Status: Chronic Category: Medical Code(s): Z87.11 - Personal history of peptic ulcer disease (8) Degenerative joint disease (DJD) of lumbar
--- NOTE | 2022-01-04 10:02 | CT_ITS ---
FINAL REPORT TECHNIQUE: Then section axial CT images of the chest were obtained with contrast. Three-D reformatted images were also obtained.This study was performed with techniques to keep radiation doses as low as reasonably achievable (ALARA). Individualized dose reduction techniques using automated exposure control or adjustment of mA and/or kV according to the patient''s size were employed. CLINICAL HISTORY: SOA and increased D-dimer FINDINGS: There is no evidence of pulmonary embolism. There is no evidence of thoracic aortic aneurysm or dissection. There is severe coronary artery calcification. There is no evidence of mediastinal or hilar mass or adenopathy. There is a small right pleural effusion. There is mild bibasilar atelectasis. There are multiple chronic rib fractures. There is a 6.4 cm lytic lesion in the right 6th lateral rib that is nonspecific. Limited images of the upper abdomen demonstrate changes from cholecystectomy. IMPRESSION: No evidence of pulmonary embolism. Mild bibasilar atelectasis. Nonspecific lytic lesion in the right 6th lateral rib. Neoplasm is not excluded. Small right pleural effusion. Severe coronary artery calcification. Reviewed, Interpreted and Dictated by Vlad North III, MD Transcribed by Dallin Lyle Authenticated and [facility]
--- NOTE | 2022-01-04 10:17 | HMH.PULMPN ---
Internal Medicine - PN: Subj *Date: 01/04/22 *Time: 12:57 Interval history: No acute respiratory events overnight. Only minimal improvement in symptoms. Noted to hypoxic episodes overnight. Exam - Constitutional Constitutional:: Present: no acute distress, comfortable - HENMT Exam HENMT: Present: normocephalic - Eye Exam Eyes:: Present: normal appearance both eyes and related structures - Neck Exam Neck:: Present: normal visual inspection - Respiratory Exam Respiratory:: Present: able to speak in complete sentences, no respiratory distress, wheezing - Cardiovascular Exam Cardiac:: Present: regular rhythm - GI Exam GI:: Present: soft - Skin Exam Skin: Present: warm, no rash - Neurological Exam Neurological: Present: alert, awake, normal cognition - Extremities Exam Extremities: Present: no cyanosis Assessment and Plan (1) COVID-19 Status: Acute Category: Medical Code(s): U07.1 - COVID-19 (2) Nausea vomiting and diarrhea Status: Acute Category: Medical Code(s): R11.2 - Nausea with vomiting, unspecified; R19.7 - Diarrhea, unspecified (3) Obesity Status: Chronic Qualifiers: Obesity type: due to excess calories Obesity classification: adult class 3 (BMI >= 40) Serious obesity comorbidity presence: with serious comorbidity Body mass index: BMI 40.0-44.9 Qualified Code(s): E66.01 - Morbid (severe) obesity due to excess calories; Z68.41 - Body mass index [BMI] 40.0-44.9, adult Category: Medical Code(s): E66.9 - Obesity, unspecified (4) Type 2 diabetes mellitus with diabetic neuropathy, with long-term current use of insulin Status: Chronic Category: Medical Code(s): E11.40 - Type 2 diabetes mellitus with diabetic neuropathy, unspecified; Z79.4 - termination clerk (current) use of insulin (5) Anemia Status: Chronic Qualifiers: Anemia type: iron deficiency Iron deficiency anemia type: chronic blood loss Qualified Code(s): D50.0 - Iron deficiency anemia secondary to blood loss (chronic) Category: Medical Code(s): D64.9 - Anemia, unspecified (6) History of cancer chemotherapy Status: Chronic Category: Medical Code(s): Z92.21 - Personal history of antineoplastic chemotherapy (7) History of peptic ulcer disease Status: Chronic Category: Medical Code(s): Z87.11 - Personal history of peptic ulcer disease (8) Degenerative joint disease (DJD) of lumbar spine Status: Chronic Category: Medical Code(s): M47.816 - Spondylosis without myelopathy or radiculopathy, lumbar region (9) Lung metastases Status: Chronic Qualifiers: Laterality: right Qualified Code(s): C78.01 - Secondary malignant neoplasm of right lung Category: Medical Code(s): C78.00 - Secondary malignant neoplasm of unspecified lung (10) 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etes mellitus Status: Chronic Qualifiers: Diabetes mellitus termite inspector insulin use: with jail use Diabetes mellitus complication status: with other specified complication Qualified Code(s): E11.69 - Type 2 diabetes mellitus with other specified complication; Z79.4 - termination clerk (current) use of insulin Category: Medical Code(s): E11.9 - Type 2 diabetes mellitus without complications (13) History of left below knee amputation Status: Chronic Category: Medical Code(s): Z89.512 - Acquired absence of left leg below knee (14) History of right below knee amputation Status: Acute Category: Surgical Code(s): Z89.511 - Acquired absence of right leg below knee (15) Hypomagnesemia Status: Acute Category: Medical Code(s): E83.42 - Hypomagnesemia
[2022-01-04 12:00] VITALS: BP 157/70; PULSE 71; RESP 18; TEMP 36.7; O2SAT 97
[2022-01-04 15:25] VITALS: BMI 46.8
[2022-01-04 16:00] VITALS: BP 162/82; PULSE 87; RESP 18; TEMP 36.8; O2SAT 95
--- NOTE | 2022-01-04 16:06 | PC.NURSE ---
PT HAS TOLERATED ROOM AIR WELL THIS SHIFT. FAMILY BROUGHT IN TRILOGY FOR USE HS. NO ACUTE CHANGES SINCE PREVIOUS SHIFT.
[2022-01-04 19:29] LABS: POC Glucose,Bedside 140 (70-110)
[2022-01-04 20:00] VITALS: BP 167/94; PULSE 78; RESP 20; TEMP 36.6; O2SAT 91
[2022-01-04 21:07] LABS: POC Glucose,Bedside 251 (70-110)
[2022-01-05] VITALS: BP 164/89; PULSE 91; RESP 20; TEMP 36.8; O2SAT 97
--- NOTE | 2022-01-05 03:38 | PC.NURSE ---
Patient rested well this shift. Patient currently on cpap while sleeping tolerating well. Patient room air otherwise sating above 90's. Patient a&ox4 this shift. Dressing placed over stage 2 on coccyx along with barrier cream. Patient has been turning. No other concerns noted.
[2022-01-05 04:00] VITALS: BP 142/68; PULSE 66; RESP 18; TEMP 36.6; O2SAT 96
[2022-01-05 04:41] VITALS: BMI 47.5
[2022-01-05 06:23] LABS: POC Glucose,Bedside 192 (70-110)
[2022-01-05 06:23] LABS: POC Glucose,Bedside 198 (70-110)
[2022-01-05 06:30] VITALS: O2SAT 95
[2022-01-05 07:26] LABS: Basophils % 0.1 % (0.1-2.0); Eosinophils % 0.2 % (0.1-12.0); Hematocrit 29.4 % (42.0-52.0); Hemoglobin 9.7 g/dL (14.1-18.0); Lymphocytes # 0.7 K/mm3 (0.7-4.5); Lymphocytes % 15.3 % (10-50); Mean Corpuscular Volume 90.9 fl (80-94); Mean Platelet Volume 8.5 fl (7.4-10.4); Monocytes # 0.3 K/mm3 (0.1-1.0); Monocytes % 7.6 % (1.7-9.3); Neutrophils # 3.4 K/mm3 (1.8-7.8); Neutrophils % 76.8 % (37.0-80.0); Platelet Count 168 K/mm3 (142-424); Red Blood Count 3.24 M/mm3 (4.60-6.20); Red Cell Distribution Width 19.8 % (11.5-17.5); White Blood Count 4.4 K/mm3 (4.8-10.8)
[2022-01-05 07:45] LABS: Alanine Aminotransferase 36 U/L (12-78); Albumin Level 2.6 g/dl (3.5-5.0); Albumin/Globulin Ratio 0.9 (1.1-1.8); Alkaline Phosphatase 79 U/L (38-126); Anion Gap 8.2 mEq/L (5-15); Aspartate Amino Transferase 38 U/L (17-59); Blood Urea Nitrogen 17 mg/dl (9-20); Calcium 6.5 mg/dl (8.4-10.2); Carbon Dioxide 22 mmol/L (22.0-30.0); Chloride 113 mmol/L (98-107); Creatinine Clearance Estimated 90 mL/min (50-200); Estimated Glomerular Filt Rate 114 ml/min (>60); GFR (African American) 138 ML/MIN (>60); Globulin 2.9 g/dL (1.3-3.2); Glucose 167 mg/dl (74-100); Potassium 3.2 mmoL/L (3.5-5.1); Sodium 140 mmol/L (136-145); Total Protein,Serum 5.5 g/dl (6.3-8.2)
[2022-01-05 08:00] VITALS: BP 152/81; PULSE 66; RESP 17; TEMP 36.8; O2SAT 95; O2SAT 96
[2022-01-05 08:00] LABS: Bilirubin,Total < 0.1 mg/dl (0.2-1.3)
--- NOTE | 2022-01-05 09:05 | HMH.ACPN2 ---
<Destiny Farah - Last Filed: 01/05/22 09:05> Internal Medicine - PN: Subj *Date: 01/05/22 *Time: 09:05 Interval history: Patient states he is feeling a little bit better this morning. He is very tired. He is still short of breath. He does have a pressure wound near his coccyx and he would like for wound care to take a look at that. He did eat some breakfast. Exam Vital signs and Labs for Last 24 Hours: Temp Pulse Resp BP Pulse Ox 98.2 F 66 17 152/81 H 96 01/05/22 08:00 01/05/22 08:00 01/05/22 08:00 01/05/22 08:00 01/05/22 08:00 Laboratory Results - last 24 hr 01/04/22 12:23: POC Glucose 140 H 01/04/22 16:38: POC Glucose 251 H 01/04/22 20:54: POC Glucose 198 H 01/05/22 06:11: POC Glucose 192 H 01/05/22 06:50: Sodium 140, Potassium 3.2 L, Chloride 113 H, Carbon Dioxide 22, Anion Gap 8.2, BUN 17, Creatinine 0.70, Estimated Creat Clear 90, Estimated GFR 114, Est GFR ( Amer) 138, Glucose 167 H, Calcium 6.5 L, Total Bilirubin < 0.1 L, AST 38, ALT 36, Alkaline Phosphatase 79, Total Protein 5.5 L, Albumin 2.6 L, Globulin 2.9, Albumin/Globulin Ratio 0.9 L 01/05/22 06:50: WBC 4.4 L, RBC 3.24 L, Hgb 9.7 L, Hct 29.4 L, MCV 90.9, MCH 30.0, MCHC 33.0, RDW 19.8 H, Plt Count 168, MPV 8.5, Neut % (Auto) 76.8, Lymph % (Auto) 15.3, [place] % (Auto) 7.6, Eos % (Auto) 0.2, Baso % (Auto) 0.1, Neut # (Auto) 3.4, Lymph # (Auto) 0.7, [place] # (Auto) 0.3, Eos # (Auto) 0.0, Baso # (Auto) 0.0 I & O for Last 24 hours: Intake & Output 01/02/22 01/03/22 01/04/22 01/05/22 11:59 11:59 11:59 11:59 Intake Total 1810 / 1810 2158 / 2158 2511 / 2511 Output Total 100 / 100 2050 / 2050 2350 / 2350 Balance 1710 / 1710 108 / 108 161 / 161 Weight 377 lb 14.4 oz 378 lb 7 oz 382 lb 2 oz Microbiology Reports for the Last 24 Hours: Microbiology 01/02/22 22:50 Blood Blood Culture - Preliminary NO GROWTH AFTER 48 HOURS 01/02/22 22:50 Blood Blood Culture - Preliminary - Constitutional no acute distress - *Routine Respiratory Exam Present: decreased breath sounds, wheezes - *Routine Cardiovascular Exam Present: RRR - *Routine Abdominal Exam Present: soft, normoactive bowel sounds. Absent: tenderness - *Routine Extremities Exam Present: amputation (Bilateral lower extremities). Absent: cyanosis, clubbing, edema - *Routine Skin Exam Present: warm. Absent: rash - *Routine Neurological Exam Present: alert, oriented X3 Assessment and Plan (1) COVID-19 Status: Acute Category: Medical Code(s): U07.1 - COVID-19 (2) Nausea vomiting and diarrhea Status: Acute Category: Medical Code(s): R11.2 - Nausea with vomiting, unspecified; R19.7 - Diarrhea, unspecified (3) Obesity Status: Chronic Qualifiers: Obesity type: due to excess calories Obesity classification: adult class 3 (BMI >= 40) Serious obesity comorbidity presence: with serious comorbidity Body mass index: BMI 40.0-44.9 Qualified Code(s): E66.01 - Morbid (severe) obesity due to excess calories; Z68.41 - Body mass index [BMI] 40.0-44.9, adult Category: Medical Code(s): E66.9 - Obesity, unspecified (4) Type 2 diabetes mellitus with diabetic neuropathy, with long-term current use of insulin Status: Chronic Category: Medical Code(s): E11.40 - Type 2 diabetes mellitus with diabetic neuropathy, unspecified; Z79.4 - senior living (current) use of insulin (5) Anemia Status: Chronic Qualifiers: Anemia type: iron deficiency Iron deficiency anemia type: chronic blood loss Qualified Code(s): D50.0 - Iron deficiency anemia secondary to blood loss (chronic) Category: Medical Code(s): D64.9 - Anemia, unspecified (6) History of cancer chemotherapy Status: Chronic Category: Medical Code(s): Z92.21 - Personal history of antineoplastic chemotherapy (7) History of peptic ulcer disease Status: Chronic Category: Medical Code(s): Z87.11 - Personal history of peptic ulcer disease
--- NOTE | 2022-01-05 09:21 | HMH.PULMPN ---
Internal Medicine - PN: Subj *Date: 01/05/22 *Time: 11:47 Interval history: No acute respiratory vents overnight. Continues to remain on room air during the daytime. Exam - Constitutional Constitutional:: Present: no acute distress, comfortable - HENMT Exam HENMT: Present: normocephalic - Eye Exam Eyes:: Present: normal appearance both eyes and related structures - Neck Exam Neck:: Present: normal visual inspection - Respiratory Exam Respiratory:: Present: able to speak in complete sentences, no respiratory distress, wheezing - Cardiovascular Exam Cardiac:: Present: S1, S2 - GI Exam GI:: Present: soft, obese - Skin Exam Skin: Present: warm - Neurological Exam Neurological: Present: alert, awake - Extremities Exam Extremities: Present: no cyanosis, no clubbing Assessment and Plan (1) COVID-19 Status: Acute Category: Medical Code(s): U07.1 - COVID-19 (2) Nausea vomiting and diarrhea Status: Acute Category: Medical Code(s): R11.2 - Nausea with vomiting, unspecified; R19.7 - Diarrhea, unspecified (3) Obesity Status: Chronic Qualifiers: Obesity type: due to excess calories Obesity classification: adult class 3 (BMI >= 40) Serious obesity comorbidity presence: with serious comorbidity Body mass index: BMI 40.0-44.9 Qualified Code(s): E66.01 - Morbid (severe) obesity due to excess calories; Z68.41 - Body mass index [BMI] 40.0-44.9, adult Category: Medical Code(s): E66.9 - Obesity, unspecified (4) Type 2 diabetes mellitus with diabetic neuropathy, with long-term current use of insulin Status: Chronic Category: Medical Code(s): E11.40 - Type 2 diabetes mellitus with diabetic neuropathy, unspecified; Z79.4 - nursing home (current) use of insulin (5) Anemia Status: Chronic Qualifiers: Anemia type: iron deficiency Iron deficiency anemia type: chronic blood loss Qualified Code(s): D50.0 - Iron deficiency anemia secondary to blood loss (chronic) Category: Medical Code(s): D64.9 - Anemia, unspecified (6) History of cancer chemotherapy Status: Chronic Category: Medical Code(s): Z92.21 - Personal history of antineoplastic chemotherapy (7) History of peptic ulcer disease Status: Chronic Category: Medical Code(s): Z87.11 - Personal history of peptic ulcer disease (8) Degenerative joint disease (DJD) of lumbar spine Status: Chronic Category: Medical Code(s): M47.816 - Spondylosis without myelopathy or radiculopathy, lumbar region (9) Lung metastases Status: Chronic Qualifiers: Laterality: right Qualified Code(s): C78.01 - Secondary malignant neoplasm of right lung Category: Medical Code(s): C78.00 - Secondary malignant neoplasm of unspecified lung (10) 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etes mellitus Status: Chronic Qualifiers: Diabetes mellitus long term care phlebotomist insulin use: with long term care phlebotomist use Diabetes mellitus complication status: with other specified complication Qualified Code(s): E11.69 - Type 2 diabetes mellitus with other specified complication; Z79.4 - nursing home (current) use of insulin Category: Medical Code(s): E11.9 - Type 2 diabetes mellitus without complications (13) History of left below knee amputation Status: Chronic Category: Medical Code(s): Z89.512 - Acquired absence of left leg below knee (14) History of right below knee amputation Status: Acute Category: Surgical Code(s): Z89.511 - Acquired absence of right leg below knee (15) Hypomagnesemia Status: Acute Category: Medical Code(s): E83.42 - Hypomagnesemia (16) Hypocalcemia Status: Acute C
--- NOTE | 2022-01-05 10:00 | PC.NURSE ---
1000- ENTERED PT ROOM FOR MORNING MED PASS. PT WAS ON TRILOGY DEVICE. ASKED PT IF HE WAS READY FOR MORNING MEDS AND TO REMOVE TRILOGY. PT REFUSED STATING THAT HE WANTED TO SLEEP. WILL ATTEMPT TO ADMIN MEDS AT LATER TIME.
--- NOTE | 2022-01-05 11:24 | HMH.PTWOUND ---
Rehab Inpt Wound Evaluation Rehab IP Wound Evaluation Start: 01/05/22 08:41 Freq: ONCE Status: Active Protocol: Document 01/05/22 11:20 MATT (Rec: 01/05/22 11:24 MATT [id number]) Rehab PT Wound Assessment Patient Status Premedicated Prior to Dressing Change No Subjective Subjective Pt reports he is aware of wound - states it started when he was hospitalized for 4 months - pt reports treating at home healed - wound recently re-opened Wound Lower Sacrum Wound Type Pressure Ulcer Wound Staging Stage II Query Text:Stage I - Unbroken, red skin, no blanching. Stage II - Skin broken, superficial skin loss involving epidermis alone or also dermis. Partial loss of skin layers. Stage III - Pressure area involves epidermis, dermis and subcutaneous tissue, full thickness skin loss. Stage IV - Pressure area involves epidermis, subcutaneous tissue, bone and other supportive tissue. Full thickness skin loss with extensive destruction of underlying tissue and structures. Wound Length (cm) 1.2 Wound Width (cm) 0.3 Wound Depth (cm) 0.2 Wound Bed Appearance Dusky Red Percentage Granulated (%) 100 Wound Margins Description Well Defined Surrounding Tissue Appearance [place] Wound Drainage Description None Drainage Amount None Drainage Odor No Odor Dressing Status Changed Primary Dressing Absorbant Pad Comment polymem dot Wound Debridement Amount of Tissue None Removed Dressing Change Patient Tolerance Tolerated Well Plan/Recommendation Comment No sharp debridement or specialized dressings needed or recommended - NSG to maintain pressure relief and dressing changes PRN- pt understands pressure relieving strategies- no need for skilled wound care at this time - thank you for involving wound care team in care of this patient Eval Complexity Eval Charge Codes 11017 - Low Complexity G-codes PT Current Status Other PT/OT Status PT Current Status Modifier CN-At least 100% impaired,
--- NOTE | 2022-01-05 13:04 | PC.NURSE ---
Pt being taken to the COVID unit at this time
--- NOTE | 2022-01-05 13:32 | PC.NURSE ---
Received report from Randell Cherry RN He states pt refused his morning meds as he was still using his trilogy.
--- NOTE | 2022-01-05 13:45 | PC.NURSE ---
Called the floor looking for pt's remdesivir. Per pt's previous RN, he had already administered it to patient this RN assumed care. He states he will document it in the mar when he gets a chance.
[2022-01-05 15:42] VITALS: BP 154/67; PULSE 77; RESP 20; TEMP 37; O2SAT 96
--- NOTE | 2022-01-05 16:20 | PC.NURSE ---
Pt is alert and oriented x4. He remains on RA with O2 sats measuring in the upper 90's. He's been afebrile. Denies any complaints other than being hot . Pt was given fan and stated relief on reassessment. Appetite is good eating 100% of meals. He had 1 large bm this shift and has used a urinal with assist x1. Bed is locked and in the lowest position, call light within reach.
[2022-01-05 20:00] VITALS: BP 173/51; PULSE 74; RESP 20; TEMP 36.5; O2SAT 97
[2022-01-06] VITALS (7 sets, daily range): BP systolic 150–192; BP diastolic 65–90; PULSE 61–83; RESP 18–20; TEMP 36.1–37.3; O2SAT 93–98; BMI 47.9
--- NOTE | 2022-01-06 04:20 | PC.NURSE ---
Pt alert and orientedx4, pt has been assisted to the bedpan x1 with 2 assist, urinal used twice. Pt complained of pain once, medicated prn per aug. Pt has no complaints of soa this shift, pt O2 sat 93-97% on room air, pt wears CPAP at night. Lung sounds were diminished with some wheezing bilaterally. Pt has rested throughout night.
[2022-01-06 06:46] LABS: Basophils % 0.5 % (0.1-2.0); Eosinophils % 0.4 % (0.1-12.0); Hematocrit 33.6 % (42.0-52.0); Lymphocytes # 0.5 K/mm3 (0.7-4.5); Lymphocytes % 9.9 % (10-50); Mean Corpuscular HGB Conc 32.2 g/dL (31.8-35.4); Mean Platelet Volume 8.8 fl (7.4-10.4); Monocytes # 0.4 K/mm3 (0.1-1.0); Monocytes % 7.9 % (1.7-9.3); Neutrophils # 4.2 K/mm3 (1.8-7.8); Neutrophils % 81.3 % (37.0-80.0); Platelet Count 186 K/mm3 (142-424); Red Cell Distribution Width 20.9 % (11.5-17.5); White Blood Count 5.2 K/mm3 (4.8-10.8)
[2022-01-06 06:54] LABS: Hemoglobin 10.8 g/dL (14.1-18.0)
[2022-01-06 07:02] LABS: Alanine Aminotransferase 37 U/L (12-78); Albumin Level 2.7 g/dl (3.5-5.0); Albumin/Globulin Ratio 0.9 (1.1-1.8); Alkaline Phosphatase 70 U/L (38-126); Aspartate Amino Transferase 43 U/L (17-59); Blood Urea Nitrogen 17 mg/dl (9-20); Calcium 7.3 mg/dl (8.4-10.2); Carbon Dioxide 23 mmol/L (22.0-30.0); Chloride 109 mmol/L (98-107); Creatinine Clearance Estimated 90 mL/min (50-200); Estimated Glomerular Filt Rate 136 ml/min (>60); GFR (African American) 165 ML/MIN (>60); Glucose 230 mg/dl (74-100); Sodium 138 mmol/L (136-145); Total Protein,Serum 5.7 g/dl (6.3-8.2)
[2022-01-06 07:06] LABS: Bilirubin,Total < 0.1 mg/dl (0.2-1.3)
--- NOTE | 2022-01-06 11:01 | HMH.ACPN2 ---
<Destiny Farah - Last Filed: 01/06/22 11:01> Internal Medicine - PN: Subj *Date: 01/06/22 *Time: 11:01 Interval history: Patient states he is feeling a little bit better this morning. He still has a cough but is not short of breath. He denies any pain. He states he was able to eat some breakfast and sleep last night. Exam Vital signs and Labs for Last 24 Hours: Temp Pulse Resp BP Pulse Ox 97.9 F 61 20 155/86 H 98 01/06/22 08:00 01/06/22 08:00 01/06/22 08:00 01/06/22 08:00 01/06/22 08:00 Laboratory Results - last 24 hr 01/06/22 06:10: Sodium 138, Potassium 4.0 D, Chloride 109 H, Carbon Dioxide 23, Anion Gap 10.0, BUN 17, Creatinine 0.60 L, Estimated Creat Clear 90, Estimated GFR 136, Est GFR ( Amer) 165, Glucose 230 H D, Calcium 7.3 L, Total Bilirubin < 0.1 L, AST 43, ALT 37, Alkaline Phosphatase 70, Total Protein 5.7 L, Albumin 2.7 L, Globulin 3.0, Albumin/Globulin Ratio 0.9 L 01/06/22 06:10: WBC 5.2, RBC 3.50 L, Hgb 10.8 L D, Hct 33.6 L, MCV 96.0 H, MCH 31.0, MCHC 32.2, RDW 20.9 H, Plt Count 186, MPV 8.8, Neut % (Auto) 81.3 H, Lymph % (Auto) 9.9 L, [place] % (Auto) 7.9, Eos % (Auto) 0.4, Baso % (Auto) 0.5, Neut # (Auto) 4.2, Lymph # (Auto) 0.5 L, [place] # (Auto) 0.4, Eos # (Auto) 0.0, Baso # (Auto) 0.0 I & O for Last 24 hours: Intake & Output 01/03/22 01/04/22 01/05/22 01/06/22 11:59 11:59 11:59 11:59 Intake Total 1810 / 1810 2158 / 2158 2871 / 2871 2319 / 2319 Output Total 100 / 100 2049 2350 / 2350 2150 / 2150 Balance 1710 / 1710 108 / 108 521 / 521 169 / 169 Weight 377 lb 14.4 oz 378 lb 7 oz 382 lb 2 oz 386 lb Microbiology Reports for the Last 24 Hours: Microbiology 01/03/22 12:00 Sputum - Expectorated Sputum Gram Stain - Final 01/03/22 12:00 Sputum - Expectorated Sputum Sputum Culture - Final Normal Respiratory Sho 01/02/22 22:50 Blood Blood Culture - Preliminary Gram Positive Cocci - Constitutional no acute distress - *Routine HEENT Exam Head: Present: normocephalic Eye: Present: EOMI, PERRL ENT: Present: mucous membranes moist - *Routine Neck Exam Present: supple. Absent: lymphadenopathy - *Routine Respiratory Exam Present: wheezes - *Routine Cardiovascular Exam Present: RRR - *Routine Abdominal Exam Present: soft, normoactive bowel sounds. Absent: tenderness - *Routine Extremities Exam Present: amputation (bilateral LE's). Absent: cyanosis, clubbing, edema - *Routine Skin Exam Present: warm. Absent: rash - *Routine Neurological Exam Present: alert, oriented X3 Assessment and Plan (1) COVID-19 Status: Acute Category: Medical Code(s): U07.1 - COVID-19 (2) Nausea vomiting and diarrhea Status: Acute Category: Medical Code(s): R11.2 - Nausea with vomiting, unspecified; R19.7 - Diarrhea, unspecified (3) Obesity Status: Chronic Qualifiers: Obesity type: due to excess calories Obesity classification: adult class 3 (BMI >= 40) Serious obesity comorbidity presence: with serious comorbidity Body mass index: BMI 40.0-44.9 Qualified Code(s): E66.01 - Morbid (severe) obesity due to excess calories; Z68.41 - Body mass index [BMI] 40.0-44.9, adult Category: Medical Code(s): E66.9 - Obesity, unspecified (4) Type 2 diabetes mellitus with diabetic neuropathy, with long-term current use of insulin Status: Chronic Category: Medical Code(s): E11.40 - Type 2 diabetes mellitus with diabetic neuropathy, unspecified; 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
[2022-01-06 11:07] LABS: POC Glucose,Bedside 237 (70-110)
[2022-01-06 11:07] LABS: POC Glucose,Bedside 182 (70-110)
[2022-01-06 11:07] LABS: POC Glucose,Bedside 209 (70-110)
[2022-01-06 11:07] LABS: POC Glucose,Bedside 198 (70-110)
[2022-01-06 11:31] LABS: POC Glucose,Bedside 181 (70-110)
--- NOTE | 2022-01-06 13:23 | PC.NURSE ---
PT IS RESTING IN BED. NO COMPLAINTS OF DISCOMFORT OR SOA. EATING AND DRINKING WELL. ALERT AND ORIENTED X4. LUNG SOUNDS DIMINISHED. ABDOMEN SOFT/NON TENDER/OBESE WITH ACTIVE BOWEL SOUNDS. BILATERAL AMPUTATIONS NOTED. WILL CONTINUE TO MONITOR.
[2022-01-06 16:24] LABS: POC Glucose,Bedside 239 (70-110)
[2022-01-06 19:52] LABS: POC Glucose,Bedside 250 (70-110)
[2022-01-07] VITALS (7 sets, daily range): BP systolic 149–192; BP diastolic 65–98; PULSE 64–80; RESP 15–18; TEMP 36.4–37.1; O2SAT 95–98; BMI 47.7
--- NOTE | 2022-01-07 04:37 | PC.NURSE ---
Pt alert and oriented x4, uses BiPap at night. Pt has complained of pain 1 time this shift, medicated prn per aug. Pt has rested through the night, used the urinal 1x assist. Lung sounds are diminished but clear bilaterally. Pt O2 sat 95-98% room air. Pt has had no new complaints this shift.
[2022-01-07 06:05] LABS: POC Glucose,Bedside 202 (70-110)
[2022-01-07 08:14] LABS: Alanine Aminotransferase 41 U/L (12-78); Albumin Level 2.8 g/dl (3.5-5.0); Alkaline Phosphatase 75 U/L (38-126); Anion Gap 8.3 mEq/L (5-15); Aspartate Amino Transferase 36 U/L (17-59); Blood Urea Nitrogen 19 mg/dl (9-20); Calcium 7.4 mg/dl (8.4-10.2); Carbon Dioxide 28 mmol/L (22.0-30.0); Chloride 106 mmol/L (98-107); Creatinine Clearance Estimated 90 mL/min (50-200); Estimated Glomerular Filt Rate 114 ml/min (>60); GFR (African American) 138 ML/MIN (>60); Globulin 2.9 g/dL (1.3-3.2); Glucose 172 mg/dl (74-100); Potassium 3.3 mmoL/L (3.5-5.1); Sodium 139 mmol/L (136-145); Total Protein,Serum 5.7 g/dl (6.3-8.2)
[2022-01-07 08:31] LABS: Bilirubin,Total < 0.1 mg/dl (0.2-1.3)
--- NOTE | 2022-01-07 10:51 | HMH.ACPN2 ---
Internal Medicine - PN: Subj *Date: 01/07/22 *Time: 10:51 Interval history: No respiratory difficulty overnight. Sats have remained satisfactory. He has a dry cough. No chest pain. Blood pressure has been uncontrolled. Exam Vital signs and Labs for Last 24 Hours: Temp Pulse Resp BP Pulse Ox 97.8 F 64 15 192/79 H 98 01/07/22 07:30 01/07/22 07:30 01/07/22 07:30 01/07/22 07:30 01/07/22 07:30 Laboratory Results - last 24 hr 01/05/22 13:29: POC Glucose 182 H 01/05/22 17:00: POC Glucose 198 H 01/05/22 20:44: POC Glucose 237 H 01/06/22 05:51: POC Glucose 209 H 01/06/22 11:25: POC Glucose 181 H 01/06/22 16:13: POC Glucose 239 H 01/06/22 19:45: POC Glucose 250 H 01/07/22 05:59: POC Glucose 202 H 01/07/22 07:30: Sodium 139, Potassium 3.3 L, Chloride 106, Carbon Dioxide 28, Anion Gap 8.3, BUN 19, Creatinine 0.70, Estimated Creat Clear 90, Estimated GFR 114, Est GFR ( Amer) 138, Glucose 172 H, Calcium 7.4 L, Total Bilirubin < 0.1 L, AST 36, ALT 41, Alkaline Phosphatase 75, Total Protein 5.7 L, Albumin 2.8 L, Globulin 2.9, Albumin/Globulin Ratio 1.0 L I & O for Last 24 hours: Intake & Output 01/04/22 01/05/22 01/06/22 01/07/22 11:59 11:59 11:59 11:59 Intake Total 2158 / 2158 2871 / 2871 2319 / 2319 1440 / 1440 Output Total 2049 / 2049 2350 / 2350 2150 / 2150 2850 / 2850 Balance 108 / 108 521 / 521 169 / 169 -1410 / -1410 Weight 378 lb 7 oz 382 lb 2 oz 386 lb 384 lb 5.944 oz Microbiology Reports for the Last 24 Hours: Microbiology 01/03/22 12:00 Sputum - Expectorated Sputum Gram Stain - Final 01/03/22 12:00 Sputum - Expectorated Sputum Sputum Culture - Final Normal Respiratory Sho Narrative: Alert and oriented. No respiratory distress. Color slightly pale. Lungs are clear anteriorly. Heart is distant but regular. Assessment and Plan (1) COVID-19 Status: Acute Category: Medical Code(s): U07.1 - COVID-19 (2) Nausea vomiting and diarrhea Status: Acute Category: Medical Code(s): R11.2 - Nausea with vomiting, unspecified; R19.7 - Diarrhea, unspecified (3) Obesity Status: Chronic Qualifiers: Obesity type: due to excess calories Obesity classification: adult class 3 (BMI >= 40) Serious obesity comorbidity presence: with serious comorbidity Body mass index: BMI 40.0-44.9 Qualified Code(s): E66.01 - Morbid (severe) obesity due to excess calories; Z68.41 - Body mass index [BMI] 40.0-44.9, adult Category: Medical Code(s): E66.9 - Obesity, unspecified (4) Type 2 diabetes mellitus with diabetic neuropathy, with long-term current use of insulin Status: Chronic Category: Medical Code(s): E11.40 - Type 2 diabetes mellitus with diabetic neuropathy, unspecified; Z79.4 - long-term (current) use of insulin (5) Anemia Status: Chronic Qualifiers: Anemia type: iron deficiency Iron deficiency anemia type: chronic blood loss Qualified Code(s): D50.0 - Iron deficiency anemia secondary to blood loss (chronic) Category: Medical Code(s): D64.9 - Anemia, unspecified (6) History of cancer chemotherapy Status: Chronic Category: Medical Code(s): Z92.21 - Personal history of antineoplastic chemotherapy (7) History of peptic ulcer disease Status: Chronic Category: Medical Code(s): Z87.11 - Personal history of peptic ulcer disease (8) Degenerative joint disease (DJD) of lumbar spine Status: Chronic Category: Medical Code(s): M47.816 - Spondylosis without myelopathy or radiculopathy, lumbar region (9) Lung metastases Status: Chronic Qualifiers: Laterality: right Qualified Code(s): C78.01 - Secondary malignant neoplasm of right lung Category: Medical Code(s): C78.00 - Secondary malignant neoplasm of unspecified lung (10) 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
--- NOTE | 2022-01-07 12:33 | HMH.ACPN ---
Internal Medicine - PN: Subj *Date: 01/07/22 *Time: 12:33 Exam Vital signs and Labs for Last 24 Hours: Temp Pulse Resp BP Pulse Ox 98.5 F 70 16 184/98 H 98 01/07/22 12:00 01/07/22 12:00 01/07/22 12:00 01/07/22 12:00 01/07/22 12:00 Laboratory Results - last 24 hr 01/06/22 16:13: POC Glucose 239 H 01/06/22 19:45: POC Glucose 250 H 01/07/22 05:59: POC Glucose 202 H 01/07/22 07:30: Sodium 139, Potassium 3.3 L, Chloride 106, Carbon Dioxide 28, Anion Gap 8.3, BUN 19, Creatinine 0.70, Estimated Creat Clear 90, Estimated GFR 114, Est GFR ( Amer) 138, Glucose 172 H, Calcium 7.4 L, Total Bilirubin < 0.1 L, AST 36, ALT 41, Alkaline Phosphatase 75, Total Protein 5.7 L, Albumin 2.8 L, Globulin 2.9, Albumin/Globulin Ratio 1.0 L I & O for Last 24 hours: Intake & Output 01/04/22 01/05/22 01/06/22 01/07/22 23:59 23:59 23:59 23:59 Intake Total 2248 / 2248 2362 / 2362 2019 480 / 480 Output Total 2300 / 2300 2300 / 2850 1999 / 2099 Balance -52 / -52 62 / -488 20 / -1620 / -1620 Weight 171 kg 173.329 kg 175.087 kg 174.348 kg Assessment and Plan (1) COVID-19 Status: Acute Category: Medical Code(s): U07.1 - COVID-19 (2) Nausea vomiting and diarrhea Status: Acute Category: Medical Code(s): R11.2 - Nausea with vomiting, unspecified; R19.7 - Diarrhea, unspecified (3) Obesity Status: Chronic Qualifiers: Obesity type: due to excess calories Obesity classification: adult class 3 (BMI >= 40) Serious obesity comorbidity presence: with serious comorbidity Body mass index: BMI 40.0-44.9 Qualified Code(s): E66.01 - Morbid (severe) obesity due to excess calories; Z68.41 - Body mass index [BMI] 40.0-44.9, adult Category: Medical Code(s): E66.9 - Obesity, unspecified (4) Type 2 diabetes mellitus with diabetic neuropathy, with long-term current use of insulin Status: Chronic Category: Medical Code(s): E11.40 - Type 2 diabetes mellitus with diabetic neuropathy, unspecified; Z79.4 - senior living (current) use of insulin (5) Anemia Status: Chronic Qualifiers: Anemia type: iron deficiency Iron deficiency anemia type: chronic blood loss Qualified Code(s): D50.0 - Iron deficiency anemia secondary to blood loss (chronic) Category: Medical Code(s): D64.9 - Anemia, unspecified (6) History of cancer chemotherapy Status: Chronic Category: Medical Code(s): Z92.21 - Personal history of antineoplastic chemotherapy (7) History of peptic ulcer disease Status: Chronic Category: Medical Code(s): Z87.11 - Personal history of peptic ulcer disease (8) Degenerative joint disease (DJD) of lumbar spine Status: Chronic Category: Medical Code(s): M47.816 - Spondylosis without myelopathy or radiculopathy, lumbar region (9) Lung metastases Status: Chronic Qualifiers: Laterality: right Qualified Code(s): C78.01 - Secondary malignant neoplasm of right lung Category: Medical Code(s): C78.00 - Secondary malignant neoplasm of unspecified lung (10) 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etes mellitus Status: Chronic Qualifiers: Diabetes mellitus mcc insulin use: with mcc use Diabetes mellitus complication status: with other specified complication Qualified Code(s): E11.69 - Type 2 diabetes mellitus with other specified complication; 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
--- NOTE | 2022-01-07 15:10 | ECG_ITS ---
APPROVED REPORT Exam: Resting ECG HR:77 bpm ECG Measurements Heart Rate 77 AXES OH 205 P 15 QRSd 90 QRS 61 QT 395 T 76 QTc 427 Conclusion SINUS RHYTHM WITH OCCASIONAL SUPRAVENTRICULAR PREMATURE COMPLEXES LOW QRS VOLTAGE IN EXTREMITY LEADS [QRS DEFLECTION < 0.5 mV IN LIMB LEADS] ST ELEVATION, CONSIDER INFERIOR INJURY [MARKED ST ELEVATION W/O NORMALLY INFLECTED T-WAVE IN II/aVF] ACUTE AR UNCONFIRMED REPORT Electronically signed by : Richie Coulter MD 01/11/2022 18:00:55
--- NOTE | 2022-01-07 15:16 | PC.NURSE ---
Patient complained of chest pain shortly after administering hydralazine 2mg iv per Dr. Pandya. EKG obtained, acute mi noted on paper and the tech was sent to ER for the doctor to read EKG. ER doctor wants repeat EKG in 20-[address] Pandya ordered for cardiac enzymes.
--- NOTE | 2022-01-07 15:32 | ECG_ITS ---
APPROVED REPORT Exam: Resting ECG HR:69 bpm ECG Measurements Heart Rate 69 AXES NM 208 P 28 QRSd 96 QRS 52 QT 414 T 69 QTc 434 Conclusion SINUS RHYTHM LOW QRS VOLTAGE IN EXTREMITY LEADS [QRS DEFLECTION < 0.5 mV IN LIMB LEADS] BORDERLINE ECG UNCONFIRMED REPORT Electronically signed by : Richie Coulter MD 01/11/2022 18:00:29
[2022-01-07 16:14] LABS: Creatine Kinase 109 U/L (55-170)
[2022-01-07 16:24] LABS: CKMB Relative Index 1.1 U/L (0-4.0); Creatine Kinase MB 1.2 ng/ml (0.0-2.03)
[2022-01-07 16:28] LABS: Troponin I < 0.01 ng/ml (0.00-0.034)
--- NOTE | 2022-01-07 17:56 | PC.NURSE ---
Heart enzymes and troponin ordered per Dr. coreas and second ekg obtained per ER doctor. Second EKG normal and lab values normal. Patient stated he felt better. VS stable and patient remained on room air.
[2022-01-08] VITALS (7 sets, daily range): BP systolic 136–170; BP diastolic 72–89; PULSE 50–88; RESP 14–20; TEMP 36.1–37; O2SAT 94–98; BMI 47.5
--- NOTE | 2022-01-08 04:34 | PC.NURSE ---
Pt is alert and oriented x4. He has rested intermittently through the shift. Lung sounds are diminished bilaterally in the bases. He is tolerating room air well and CPAP while sleeping. His heart rate has been 50-90bpm. SBP has been 130's-180 this shift. He c/o a headache at the start of shift and was medicated per mar with adequate relief. Voiding per urinal in adequate amounts. Has turned independently.
--- NOTE | 2022-01-08 09:37 | HMH.ACPN2 ---
Internal Medicine - PN: Subj *Date: 01/08/22 *Time: 09:37 Interval history: No new complaints today. Blood pressure is improved some since increasing dose of Norvasc. No chest pain. No respiratory difficulty. Minimal cough. Exam Vital signs and Labs for Last 24 Hours: Temp Pulse Resp BP Pulse Ox 97.6 F 63 18 157/89 H 94 L 01/08/22 04:00 01/08/22 04:00 01/08/22 04:00 01/08/22 04:00 01/08/22 04:00 Laboratory Results - last 24 hr 01/07/22 15:40: Total Creatine Kinase 109, CK-MB (CK-2) 1.2, CK-MB (CK-2) Rel Index 1.1, Troponin I < 0.01 I & O for Last 24 hours: Intake & Output 01/05/22 01/06/22 01/07/22 01/08/22 11:59 11:59 11:59 11:59 Intake Total 2871 / 2871 2319 / 2319 1440 / 1440 720 / 720 Output Total 2350 / 2350 2150 / 2150 3550 / 3550 2350 / 2350 Balance 521 / 521 169 / 169 -2110 / -2110 -1630 / -1630 Weight 382 lb 2 oz 386 lb 384 lb 5.944 oz 382 lb 3 oz Microbiology Reports for the Last 24 Hours: Microbiology 01/02/22 22:50 Blood Blood Culture - Final NO GROWTH AFTER 5 DAYS Narrative: Alert and oriented. Color is pale. Lungs are clear anteriorly. Heart is distant but regular. Assessment and Plan (1) COVID-19 Status: Acute Category: Medical Code(s): U07.1 - COVID-19 (2) Nausea vomiting and diarrhea Status: Acute Category: Medical Code(s): R11.2 - Nausea with vomiting, unspecified; R19.7 - Diarrhea, unspecified (3) Obesity Status: Chronic Qualifiers: Obesity type: due to excess calories Obesity classification: adult class 3 (BMI >= 40) Serious obesity comorbidity presence: with serious comorbidity Body mass index: BMI 40.0-44.9 Qualified Code(s): E66.01 - Morbid (severe) obesity due to excess calories; Z68.41 - Body mass index [BMI] 40.0-44.9, adult Category: Medical Code(s): E66.9 - Obesity, unspecified (4) Type 2 diabetes mellitus with diabetic neuropathy, with long-term current use of insulin Status: Chronic Category: Medical Code(s): E11.40 - Type 2 diabetes mellitus with diabetic neuropathy, unspecified; Z79.4 - medical terminologist (current) use of insulin (5) Anemia Status: Chronic Qualifiers: Anemia type: iron deficiency Iron deficiency anemia type: chronic blood loss Qualified Code(s): D50.0 - Iron deficiency anemia secondary to blood loss (chronic) Category: Medical Code(s): D64.9 - Anemia, unspecified (6) History of cancer chemotherapy Status: Chronic Category: Medical Code(s): Z92.21 - Personal history of antineoplastic chemotherapy (7) History of peptic ulcer disease Status: Chronic Category: Medical Code(s): Z87.11 - Personal history of peptic ulcer disease (8) Degenerative joint disease (DJD) of lumbar spine Status: Chronic Category: Medical Code(s): M47.816 - Spondylosis without myelopathy or radiculopathy, lumbar region (9) Lung metastases Status: Chronic Qualifiers: Laterality: right Qualified Code(s): C78.01 - Secondary malignant neoplasm of right lung Category: Medical Code(s): C78.00 - Secondary malignant neoplasm of unspecified lung (10) 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etes mellitus Status: Chronic Qualifiers: Diabetes mellitus assisted insulin use: with medical terminologist use Diabetes mellitus complication status: with other specified complication Qualified Code(s): E11.69 - Type 2 diabetes mellitus with other specified complication; Z79.4 - medical terminologist (current) use of insulin Category: Medical Code(s): E11.9 - Type 2 diabetes mellitus without complications (13) History of left below knee
[2022-01-08 09:53] LABS: Alanine Aminotransferase 42 U/L (12-78); Albumin Level 2.6 g/dl (3.5-5.0); Alkaline Phosphatase 77 U/L (38-126); Anion Gap 7.3 mEq/L (5-15); Aspartate Amino Transferase 33 U/L (17-59); Blood Urea Nitrogen 23 mg/dl (9-20); Calcium 7.2 mg/dl (8.4-10.2); Carbon Dioxide 26 mmol/L (22.0-30.0); Chloride 107 mmol/L (98-107); Creatinine Clearance Estimated 90 mL/min (50-200); Estimated Glomerular Filt Rate 98 ml/min (>60); GFR (African American) 118 ML/MIN (>60); Globulin 2.7 g/dL (1.3-3.2); Glucose 214 mg/dl (74-100); Potassium 3.3 mmoL/L (3.5-5.1); Sodium 137 mmol/L (136-145); Total Protein,Serum 5.3 g/dl (6.3-8.2)
[2022-01-08 09:58] LABS: Bilirubin,Total < 0.1 mg/dl (0.2-1.3)
[2022-01-08 11:32] LABS: POC Glucose,Bedside 251 (70-110)
[2022-01-08 11:32] LABS: POC Glucose,Bedside 236 (70-110)
[2022-01-08 11:32] LABS: POC Glucose,Bedside 249 (70-110)
[2022-01-08 11:32] LABS: POC Glucose,Bedside 286 (70-110)
[2022-01-08 11:32] LABS: POC Glucose,Bedside 195 (70-110)
--- NOTE | 2022-01-08 14:11 | PC.NURSE ---
Called Mrs. Alonso to let her know of patient's discharge. Waiting for her to bring patient's wheelchair and transfer board.
--- NOTE | 2022-01-09 13:26 | CARE MANAGER ---
Spoke with the patient regarding follow up from hospital discharge. Patient states he is doing well and didn't require any additional Oxygen. He was able to obtain his medications and has already made follow up appointment with dr. Pandya. He denies any questions or concerns at this time. KELLY Harp
--- NOTE | 2022-01-09 22:42 | HMH.DCSUM ---
General - General Admission date:: 01/03/22 <Prem Pandya - 01/17/22 21:53> 01/03/22 <Destiny Farah - 01/09/22 23:00> Discharge date: 01/08/22 <Destiny Farah - 01/09/22 23:00> HPI HPI: Mr. Worthy is a 61-year-old male patient with a complicated medical history which includes type 2 diabetes mellitus, hypertension, asthma, arthritis, metastatic follicular thyroid carcinoma, DVT/pulmonary emboli. ASCVD status post coronary stent, peptic ulcer disease, and bilateral below the knee amputations who presented to [facility] via EMS after experiencing nausea and vomiting with diarrhea throughout the day. He states his symptoms started the previous 2 days with a sore throat and cough. He felt badly all weekend with fevers and chills and body aches. The vomiting and the diarrhea started yesterday. In the emergency room fever was found to be 102.7. He was tachycardic and with Tylenol fever did decrease to 98.1. He received a bolus of fluids and was started on doxycycline. He also received acetaminophen, famotidine IV, Reglan IV and Zofran IV. Chest x-ray showed no acute findings. Laboratory data showed a white blood cell count of 7,300 with a hemoglobin of 11 and hematocrit of 32 with a repeat this morning showing hemoglobin at 9.9 and hematocrit of 29.2. Blood chemistries show sodium of 139 with a potassium of 3.2 and this morning a.m. labs show a potassium of 3.6. Renal function is normal. Hg++ is low at 0.9. Amylase and lipase are not elevated. Diarrhea panel was negative. He did test COVID positive. This a.m. he states his biggest complaint is his back pain. He had some diarrhea and vomiting in the emergency room. He arrived to his room around 4 AM and has not vomited or had diarrhea since his transfer. He was able to eat breakfast and denies nausea at present. He states he feels better since receiving the IV antibiotic in the emergency room. <Destiny Farah - 01/09/22 23:00> Hospital Course Hospital Course: The patient was started on IV fluids, doxycycline, and COVID meds. Remdesivir and dexamethasone were started and pulmonology was consulted.. He was started on duo nebs. The conservation biology professor saw the patient and felt he should continue on current medication and be initiated on Combivent. Repeat chest x-ray showed persistent bilateral pneumonia. The patient felt some increased chest tightness and shortness of breath, but his oxygen sats remained satisfactory on 2 L. He had a chest CTA which showed no PE, mild bibasilar atelectasis, and a small right pleural effusion. There was also a nonspecific lytic lesion in the right sixth lateral rib. The patient's oxygen did better overnight with his CPAP. His hemoglobin remained stable. He was switched to his home dose of Bystolic as he did not tolerate the Coreg. Patient was weaned to room air during the daytime. His antibiotics were switched to Levaquin 750 mg. He did begin feeling better. His potassium normalized. His sputum culture showed gram-positive diplococci and his blood culture showed gram-positive cocci, Streptococcus species. His Norvasc was increased to twice daily and he was resumed on hydrochlorothiazide due to elevated blood pressures. His blood pressure did improve. He had no respiratory difficulty. His final sputum showed no growth. His blood culture was growing Streptococcus equinus. The patient was feeling better and was stable to be discharged home. He will follow-up with Dr. Pandya and pulmonology. <Destiny Farah - 01/09/22 23:00> Objective Vital signs: Temp Pulse Resp BP Pulse Ox 96.9 F L 75 14 157/79 H 97 01/08/22 11:30 01/08/22 13:00 01/08/22 13:00 01/08/22 13:00 01/08/22 13:00 <Prem Pandya - 01/17/22 21:53> Temp Pulse Resp BP Pulse Ox 96.9 F L 75 14 157/79 H 97 01/08/22 11:30 01/08/22 13:00 01/08/22 13:00 01/08/22 13:00 01/08/22 13:00 <Desitny Farah -
== END 2022-01-08 15:20 | disposition home or self-care (01) | DRG 177 ==
LOC: ER 22:33 → 2ND 01-03 02:46 → ICU 01-05 11:22
PROVIDERS: Internal Medicine Pulmonary Disease; Admitting Provider Family Medicine; Emergency Provider Emergency Medicine; PCP Family Medicine; Visit Provider Family Medicine
DX: U07.1 COVID-19 (principal); J12.82 Pneumonia due to coronavirus disease 2019; J96.01 Acute respiratory failure with hypoxia; C78.00 Secondary malignant neoplasm of unspecified lung; C79.51 Secondary malignant neoplasm of bone; Z68.42 Body mass index [BMI] 45.0-49.9, adult; E66.01 Morbid (severe) obesity due to excess calories; Z85.038 Personal history of other malignant neoplasm of large intestine; I25.10 Atherosclerotic heart disease of native coronary artery without angina pectoris; Z86.718 Personal history of other venous thrombosis and embolism; E11.51 Type 2 diabetes mellitus with diabetic peripheral angiopathy without gangrene; I11.0 Hypertensive heart disease with heart failure; I50.9 Heart failure, unspecified; Z86.711 Personal history of pulmonary embolism; M19.90 Unspecified osteoarthritis, unspecified site; I25.2 Old myocardial infarction; C73 Malignant neoplasm of thyroid gland; Z87.891 Personal history of nicotine dependence; M47.816 Spondylosis without myelopathy or radiculopathy, lumbar region; Z95.5 Presence of coronary angioplasty implant and graft; E11.40 Type 2 diabetes mellitus with diabetic neuropathy, unspecified; D50.0 Iron deficiency anemia secondary to blood loss (chronic); E83.51 Hypocalcemia; E83.42 Hypomagnesemia; G47.30 Sleep apnea, unspecified; Z89.512 Acquired absence of left leg below knee; Z89.511 Acquired absence of right leg below knee; Z79.4 Long term (current) use of insulin
CPT/HCPCS: 36415; 71045; 71275; 80048; 80053; 80076; 81001; 82150; 82550; 82553; 82962; 83605; 83690; 83735; 84145; 84484; 85007; 85025; 85378; 85651; 86140; 87040; 87070; 87077; 87186; 87205; 87507; 87581; 87632; 87798; 93005; 94640; 94761; 99285; C9803; J2405; Q9967; U0003; U0005

== ENCOUNTER 2022-01-18 10:17 | Outpatient (CLI) | payer MEDICARE, SELFPAY ==
[2022-01-18 10:40] VITALS: BP 140/81; PULSE 77; RESP 18; O2SAT 98
[2022-01-18 11:25] VITALS: BP 158/99; PULSE 73; RESP 18
[2022-01-18 12:25] VITALS: BP 153/103; PULSE 76; RESP 18
[2022-01-18 13:40] VITALS: RESP 18
[2022-01-18 14:00] VITALS: BP 157/68; PULSE 78; RESP 18
== END 2022-01-18 14:00 | disposition home or self-care (01) ==
LOC: INF 10:18
PROVIDERS: PCP Family Medicine; Visit Provider Family Medicine
DX: D50.0 Iron deficiency anemia secondary to blood loss (chronic) (principal)
CPT/HCPCS: 96365; 96366; J1756

== ENCOUNTER 2022-04-20 06:34 | Emergency (ER) | payer MEDICARE, SELFPAY ==
[2022-04-20] VITALS (8 sets, daily range): BP systolic 123–148; BP diastolic 45–82; PULSE 80–89; RESP 17–18; TEMP 36.5–36.8; O2SAT 96–99; BMI 50.3
--- NOTE | 2022-04-20 06:46 | CT_ITS ---
FINAL REPORT CLINICAL HISTORY: dizziness FINDINGS: Axial images of the head were obtained without contrast. Coronal reformatted images were also obtained.This study was performed with techniques to keep radiation doses as low as reasonably achievable (ALARA). Individualized dose reduction techniques using automated exposure control or adjustment of mA and/or kV according to the patient''s size were employed. There is no evidence of intracranial hemorrhage or mass. The ventricular size is within normal limits. There is no evidence of shift of the midline structures. No abnormal extra axial fluid collection is identified. There is mucosal thickening in the right maxillary sinus. There is right parietal scalp soft tissue swelling of uncertain etiology. There are postoperative changes of the right mandibular ramus. Postoperative changes are seen in the right face. IMPRESSION: No acute intracranial abnormality. Reviewed, Interpreted and Dictated by Vlad North III, MD Transcribed by Maria G Carreon Authenticated and [facility]
[2022-04-20 07:01] LABS: Basophils # 0.1 K/mm3 (0-0.2); Basophils % 0.8 % (0.1-2.0); Eosinophils # 0.4 K/mm3 (0.0-0.4); Eosinophils % 5.4 % (0.1-12.0); Hemoglobin 11.1 g/dL (14.1-18.0); Lymphocytes # 0.8 K/mm3 (0.7-4.5); Lymphocytes % 12.7 % (10-50); Mean Corpuscular HGB Conc 31.6 g/dL (31.8-35.4); Mean Corpuscular Hemoglobin 32.2 pg (27.0-31.2); Mean Platelet Volume 9.2 fl (7.4-10.4); Monocytes # 0.4 K/mm3 (0.1-1.0); Monocytes % 6.4 % (1.7-9.3); Neutrophils # 4.9 K/mm3 (1.8-7.8); Neutrophils % 74.7 % (37.0-80.0); Platelet Count 203 K/mm3 (142-424); Red Blood Count 3.44 M/mm3 (4.60-6.20); Red Cell Distribution Width 18.5 % (11.5-17.5); White Blood Count 6.6 K/mm3 (4.8-10.8)
[2022-04-20 07:08] LABS: Chloride 109 mmol/L (98-107); Potassium 3.9 mmoL/L (3.5-5.1); Sodium 142 mmol/L (136-145)
[2022-04-20 07:10] LABS: Alanine Aminotransferase 30 U/L (12-78); Aspartate Amino Transferase 39 U/L (17-59); Blood Urea Nitrogen 19 mg/dl (9-20); Creatinine Clearance Estimated 65 mL/min (50-200); Estimated Glomerular Filt Rate 61 ml/min (>60); GFR (African American) 74 ML/MIN (>60)
[2022-04-20 07:11] LABS: Albumin Level 3.3 g/dl (3.5-5.0); Alkaline Phosphatase 90 U/L (38-126); Anion Gap 12.9 mEq/L (5-15); Carbon Dioxide 24 mmol/L (22.0-30.0); Globulin 3.2 g/dL (1.3-3.2); Glucose 112 mg/dl (74-100); Total Protein,Serum 6.5 g/dl (6.3-8.2)
[2022-04-20 07:19] LABS: Bilirubin,Total 0.1 mg/dl (0.2-1.3)
[2022-04-20 08:10] LABS: Erythrocyte Sedimentation Rate 134 mm/hr (0-20)
[2022-04-20 08:29] LABS: Phosphorous 4.2 mg/dl (2.5-4.5)
--- NOTE | 2022-04-20 08:30 | CT_ITS ---
FINAL REPORT TECHNIQUE: Thin section axial CT with IV contrast supplemented with multiplanar reconstruction under CT angiogram protocol. 3-D reconstructions were performed. This study was performed with techniques to keep radiation doses as low as reasonably achievable (ALARA). Individualized dose reduction techniques using automated exposure control or adjustment of mA and/or kV according to the patient''s size were employed. CLINICAL HISTORY: intermittent dizziness, R facial droop, R leg numb FINDINGS: The distal vertebral, basilar and distal internal carotid arteries have an unremarkable appearance. No aneurysm is seen. Major intracranial vessels are patent without significant stenosis. IMPRESSION: No significant evidence of stenosis. Reviewed, Interpreted and Dictated by Vlad North III, MD Transcribed by Lily Chauhan Authenticated and [facility]
--- NOTE | 2022-04-20 08:30 | CT_ITS ---
FINAL REPORT TECHNIQUE: Thin section axial CT with IV contrast supplemented with multiplanar reconstruction under CT angiogram protocol. This study was performed with techniques to keep radiation doses as low as reasonably achievable (ALARA). Individualized dose reduction techniques using automated exposure control or adjustment of mA and/or kV according to the patient''s size were employed. NASCET criteria was utilized during interpretation. CLINICAL HISTORY: intermittent dizziness, R facial droop, R leg numb FINDINGS: Aortic arch: Arch shows no significant narrowing. Great vessel origins are widely patent. Right carotid: No significant stenosis is seen of the cervical common or internal carotid artery. Left carotid: No significant stenosis is seen of the cervical common or internal carotid artery. Vertebral: The vertebral arteries are codominant. No significant stenosis is present. There are moderate right and small left pleural effusions. There are postoperative changes from thyroidectomy. There are postoperative changes in the right face and mandible. There is a superficial fluid collection in the right posterolateral neck measuring 24 mm, may represent seroma, chronic hematoma, or possibly abscess. IMPRESSION: Fluid collection in the right posterolateral neck, may represent seroma, chronic hematoma, or possibly abscess. Bilateral pleural effusions, right greater than left. No evidence of significant stenosis. Reviewed, Interpreted and Dictated by Vlad North III, MD Transcribed by Lily Chauhan Authenticated and [facility]
--- NOTE | 2022-04-20 08:30 | PC.NURSE ---
notified ER of critical magnesium result
--- NOTE | 2022-04-20 08:35 | HMH.EDGENADL ---
Discharge Plan Disposition Patient Disposition: Home, Self-Care Condition: Good Prescriptions Prescriptions: New magnesium oxide 400 mg magnesium capsule 400 mg PO BID Qty: 60 0RF No Action cyclobenzaprine 5 mg tablet 5 mg PO BIDP PRN (Reason: Muscle spasms) lisinopril 40 mg tablet 40 mg PO DAILY potassium chloride 10 MEQ tablet extended release 10 meq PO BID albuterol sulfate 8.5 GM HFA aerosol inhaler 2 puff IH Q4HP PRN (Reason: Shortness Of Breath) levothyroxine 137 MCG tablet 274 mcg PO DAILY doxazosin 1 MG tablet 1 mg PO HS insulin aspart U-100 100 UNIT/ML solution 20 unit SQ ACHS ferrous sulfate 325 MG tablet 325 mg PO BID ondansetron 4 MG tablet,disintegrating 4 mg PO TIDP PRN (Reason: Nausea) cabozantinib 60 MG tablet 60 mg PO DAILY pantoprazole 40 MG tablet,delayed release (DR/EC) 40 mg PO DAILY calcium carbonate 500 MG tablet,chewable 2,000 mg PO BID amlodipine 5 MG tablet 5 mg PO BID 30 Days Qty: 60 0RF Rx Instructions: MD TREVINO FROM OFFICE TO SPECIALTY [facility]ARM[facility] acetaminophen 325 MG tablet 1,300 mg PO BID gabapentin 600 MG tablet 600 mg PO BID nebivolol 10 MG tablet 20 mg PO HS atorvastatin 20 MG tablet 20 mg PO DAILY oxycodone-acetaminophen 1 EACH tablet 1 each PO Q4HP PRN (Reason: Moderate Pain) trazodone 100 MG tablet 100 mg PO HS hydrochlorothiazide 12.5 MG capsule 25 mg PO DAILY insulin detemir U-100 100 UNIT/ML solution 40 unit SQ DAILY rivaroxaban 20 MG tablet 20 mg PO QPMWITHMEAL Referrals Follow up/Referrals: Prem Pandya MD [Primary Care Provider] - See instructions Activity Restrictions/Add. Instructions Additional Instructions/Restrictions: Stop taking Tums and start taking Citracal 3 times a day ([id number]). Start magnesium oxide as prescribed. Follow-up in the office with Dr. Pandya on Sunday or Sunday next week. Clinical Impressions Clinical Impression: Facial weakness, Hypomagnesemia, Hypocalcemia, Numbness in right leg, Vertigo, Headache, Nausea Discharge ED Provider: Aly Nix General Adult [facility] General Chief complaint: Dizziness Stated complaint: weakness Time Seen by Provider: 04/20/22 08:10 Mode of Arrival: EMS Source of Information: Patient Limitations: No Limitations Description of Symptoms (Recalled from ER Triage Doc. by RN): Pt c/o dizziness for hte last 3-4 days. Also states that he has had right legged numbness since yesterday and intermittent right sided facial drooping. Pt states that he only notices the right sided facial drooping whenever his right leg is numb. Pt also c/o ringing in both ears and a headache in the top of his head. Also c/o nausea for the last couple of days. 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 History of Present Illness HPI narrative: States that for 3 to 4 days he noticed that his that when he rolls over in bed he gets a spinning dizziness. For 2 days he has had intermittent right leg numbness and a sensation of right facial droop, nausea and frontal/apical headache. Sometimes both legs feel numb. He says that symptoms have been increasing and have been coming and going almost constantly today. States he does not currently have a sensation of numbness or weakness or dizziness. Related Data Home Medications Medication Instructions Recorded Confirmed potassium chloride 10 mEq 10 meq PO BID Supplement 01/08/20 01/02/22 tablet,extended release cyclobenzaprine 5 mg tablet 5 mg PO BIDP PRN Muscle spasms 01/20/20 01/02/22 albuterol sulfate 90 mcg/actuation 2 puff IH Q4HP PRN Shortness Of 01/26/21 01/03/22 aerosol inhaler Breath levothyroxine 137 mcg tablet 274 mcg PO DAILY hypothyroidism 01/27/21 01/02/22 lisinopril 40 mg tablet 40 mg PO DAILY Hypertension 02/15/21 01/02/22 acetaminophen 325 mg table
--- NOTE | 2022-04-20 08:38 | PC.NURSE ---
donnie fernandez in pharmacy calcium gluconate and magnesium sulfate are compatible states pharmacy will mix calcium gluconate and send it down to us
[2022-04-20 08:42] LABS: Procalcitonin 0.059 ng/mL (0.0-2.0)
--- NOTE | 2022-04-20 08:54 | PC.NURSE ---
PT GOING TO CT
--- NOTE | 2022-04-20 09:07 | PC.NURSE ---
BACK FROM CT
--- NOTE | 2022-04-20 10:15 | PC.NURSE ---
CONSTANTINE MACHUCA speaking with dr. calderon
--- NOTE | 2022-04-20 10:24 | PC.NURSE ---
CONSTANTINE MACHUCA at bedside.
--- NOTE | 2022-04-20 10:35 | PC.NURSE ---
TRAY ORDERED FROM DIETARY
--- NOTE | 2022-04-20 11:11 | PC.NURSE ---
Waiting on to return with clothes for the pt then they will be going home.
== END 2022-04-20 11:41 | disposition home or self-care (01) ==
PROVIDERS: Emergency Medicine; Emergency Provider Emergency Medicine; PCP Family Medicine
DX: R29.810 Facial weakness (principal); E83.42 Hypomagnesemia; E83.51 Hypocalcemia; R20.0 Anesthesia of skin; R51.9 Headache, unspecified; R11.0 Nausea; Z89.511 Acquired absence of right leg below knee; E66.9 Obesity, unspecified; Z68.43 Body mass index [BMI] 50.0-59.9, adult; I73.9 Peripheral vascular disease, unspecified; Z95.5 Presence of coronary angioplasty implant and graft; E10.9 Type 1 diabetes mellitus without complications; Z86.711 Personal history of pulmonary embolism; Z86.718 Personal history of other venous thrombosis and embolism
CPT/HCPCS: 70450; 70496; 70498; 80053; 83735; 84100; 84145; 85025; 85651; 86140; 96365; 96367; 99285; J3475; Q9967

== ENCOUNTER 2022-07-06 10:00 | Outpatient (RCR) | payer MEDICARE, SELFPAY ==
--- NOTE | 2022-05-29 12:17 | HMH.PTOPEV ---
PT Outpatient Evaluation Rehab PT Outpatient Evaluation Start: 05/29/22 12:02 Freq: Status: Active Protocol: Document 05/29/22 12:02 MATT (Rec: 05/29/22 12:17 BRERAHUL [id number]) E-signed By Jl Soloomn, PT Outpatient Therapy Subjective History Subjective History This is the initial Physical Therapy evaluation for Ab Worthy. Pt is a 61 y/o male with and extensive PMH. Pt has hx of and current dx of thyroid cancer w/ bone mets, significant CVD/CAD, history of DFU, sepsis, extended hospital stays and prior L BKA . original L BKA was ~ 8 years ago, most recent R BKA was 03/23. Pt has daily oral chemo therapy, recently suffered T6 fx and B 6th rib fx's. Chief Complaint Weakness,Other Symptom Type Other Symptoms Relieved By Rest/Positioning Symptoms Aggravated By Standing,Physical Activity, Walking Current Functional Limitations Housework,Standing,Walking Lumbopelvic Eval Posture Thoracic Spine Posture Standing Position Increased Kyphosis Lumbar Spine Posture Standing Position Flexed Assistive device Assistive Devices Rolling / Wheeled Walker, Wheelchair Hip/Knee Eval MMT bilateral Hip Flexion Strength Grade 4 Good Knee Extension Strength Grade 4 Good ROM Hip ROM Reason Not Measured Within Functional Limits Knee ROM Reason Not Measured Within Functional Limits Balance Eval Gait/Posture Asssessment General Gait Observation Narrow Based Gait,Shuffling Step Assistive Devices Rolling / Wheeled Walker, Wheelchair Level of Transfer Assist Standby Assistance LE ROM Hip ROM Limitations Soft Tissue Tightness Timed Up and Go Test 1. Is the Timed Up and Go test result > yes or = to 12 seconds? 3. Is the Timed Up and Go Test result < no 12 seconds? Outpatient Therapy Assessment Impairments Problems/Impairmments Impaired Strength,Impaired Walking,Impaired Standing, Impaired Incline Stepping, Impaired Recreational Activities Prognosis Rehab Potential Fair Comment Pt may be limited in recover D /T chemo, mets, and weakne
--- NOTE | 2022-07-06 10:39 | HMH.RHREAS ---
Rehab Reassessment Rehab OP Re-assessment Start: 07/06/22 09:48 Freq: Status: Active Protocol: Document 07/06/22 09:48 KAY (Rec: 07/06/22 10:37 KAY [id number]) E-signed By Sonia aMrtinez PT Rehab Re-assessment Subjective Subjective Pt reports he has been ambulating around his home with his walker without issues , denies falls. Pt reports he continues to use his electric wheelchair for community navigation. 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 Pt reports his left arm feels weak sometimes while using the rolling walker but states he has been performing UE strengthening exercises at home. Objective Objective Notes MMT: B hip flex and knee ext 4 +/5 Gait: 50' with RW and CGA Transfer: w/c to level surface and sit to stand able to perform with SBA Assessment Progress Assessment Progressing as Expected Assessment Notes Pt has attended 4 PT visits consisting of aerobic exercise , LE stretching/strengthening and gait training with good tolerance. Pt is currently receiving chemotherapy for thyroid cancer which poses as a barrier to PT attendance and overall progress. Pt demonstrated improved LE strength, standing tolerance, transfers and gait pattern with RW this date. Pt would continue to benefit from skilled PT to further improve LE strength and gait mechanics to decrease fall/wound risk and to improve overall QOL. Patient goals met ST/4 Goals Not Met LTG Revised Goals n/a Plan Plan Continue initial POC Frequency of Therapy 2x/week Duration of therapy 4 more weeks Time and Billing Re-Eval Time 10 Re-Eval
== END 2022-07-06 10:05 | disposition home or self-care (01) ==
LOC: PT 10:00
PROVIDERS: Visit Provider Family Medicine
DX: Z89.9 Acquired absence of limb, unspecified (principal); R26.81 Unsteadiness on feet
CPT/HCPCS: 97110; 97163; 97164; 97530

== ENCOUNTER → 2022-07-21 10:08 | Outpatient (CLI) | payer MEDICARE, SELFPAY ==
[2022-07-21 10:27] LABS: Basophils # 0.1 K/mm3 (0-0.2); Eosinophils # 0.7 K/mm3 (0.0-0.4); Eosinophils % 10.6 % (0.1-12.0); Hematocrit 32.1 % (42.0-52.0); Hemoglobin 9.7 g/dL (14.1-18.0); Lymphocytes # 0.7 K/mm3 (0.7-4.5); Lymphocytes % 11.4 % (10-50); Mean Corpuscular HGB Conc 30.3 g/dL (31.8-35.4); Mean Corpuscular Hemoglobin 30.9 pg (27.0-31.2); Mean Corpuscular Volume 101.9 fl (80-94); Mean Platelet Volume 8.6 fl (7.4-10.4); Monocytes # 0.4 K/mm3 (0.1-1.0); Monocytes % 5.6 % (1.7-9.3); Neutrophils # 4.5 K/mm3 (1.8-7.8); Neutrophils % 71.4 % (37.0-80.0); Platelet Count 234 K/mm3 (142-424); Red Blood Count 3.15 M/mm3 (4.60-6.20); Red Cell Distribution Width 18.5 % (11.5-17.5); White Blood Count 6.2 K/mm3 (4.8-10.8)
[2022-07-21 10:36] LABS: Calcium 7.8 mg/dl (8.4-10.2); Magnesium 1.5 mg/dl (1.6-2.3)
== END ==
PROVIDERS: PCP Family Medicine; Visit Provider Family Medicine
DX: E83.51 Hypocalcemia (principal); E83.42 Hypomagnesemia
CPT/HCPCS: 82310; 83735; 85025

== ENCOUNTER 2022-07-28 10:35 | Emergency (ER) | payer MEDICARE, SELFPAY ==
[2022-07-28 10:35] VITALS: BP 138/85; PULSE 74; RESP 16; TEMP 36.6; O2SAT 99; BMI 43.7
--- NOTE | 2022-07-28 10:39 | HMH.EDGENADL ---
Discharge Plan Disposition Patient Disposition: Home, Self-Care Condition: Fair Prescriptions Prescriptions: No Action cyclobenzaprine 5 mg tablet 5 mg PO BIDP PRN (Reason: Muscle spasms) lisinopril 40 mg tablet 40 mg PO DAILY albuterol sulfate 8.5 GM HFA aerosol inhaler 2 puff IH Q4HP PRN (Reason: Shortness Of Breath) levothyroxine 137 MCG tablet 274 mcg PO DAILY doxazosin 1 MG tablet 1 mg PO HS insulin aspart U-100 100 UNIT/ML solution 20 unit SQ ACHS ferrous sulfate 325 MG tablet 325 mg PO BID ondansetron 4 MG tablet,disintegrating 4 mg PO TIDP PRN (Reason: Nausea) cabozantinib 60 MG tablet 60 mg PO DAILY pantoprazole 40 MG tablet,delayed release (DR/EC) 40 mg PO DAILY calcium carbonate 500 MG tablet,chewable 2,000 mg PO BID acetaminophen 325 MG tablet 1,300 mg PO BID gabapentin 600 MG tablet 600 mg PO BID nebivolol 10 MG tablet 20 mg PO HS atorvastatin 20 MG tablet 20 mg PO DAILY oxycodone-acetaminophen 1 EACH tablet 1 each PO Q4HP PRN (Reason: Moderate Pain) trazodone 100 MG tablet 100 mg PO HS hydrochlorothiazide 12.5 MG capsule 25 mg PO DAILY insulin detemir U-100 100 UNIT/ML solution 40 unit SQ DAILY rivaroxaban 20 MG tablet 20 mg PO QPMWITHMEAL potassium chloride 10 mEq capsule, extended release See Rx Instructions .ROUTE .COMPLEX Rx Instructions: TAKE 1 CAPSULE TWICE DAILY amlodipine 5 MG tablet 5 mg PO BID Rx Instructions: FAKAIN FROM OFFICE TO SPECIALTY PHARMACY magnesium oxide 400 mg magnesium capsule 400 mg PO BID Referrals Follow up/Referrals: Prem Pandya MD [Primary Care Provider] - 08/01/22 9:30 am (Mildly elevated renal functions. Complains of decreased urine output despite hydrochlorothiazide.) Activity Restrictions/Add. Instructions Additional Instructions/Restrictions: Continue taking all medications as prescribed. Return immediately to the emergency department if you feel worse in any way. Follow-up with your primary care doctor on Sunday at 930 as scheduled. Clinical Impressions Clinical Impression: Anemia, Type 2 diabetes mellitus Discharge ED Provider: Mayela Penn Adult [facility] General Chief complaint: Weakness Stated complaint: Sent per [facility] for low H&H Time Seen by Provider: 07/28/22 10:39 Mode of Arrival: EMS Source of Information: Patient and EMS History of Present Illness HPI narrative: The patient presents to the emergency department via ambulance because last week he had outpatient labs showing him to be anemic with a hemoglobin of 9.7. His primary care physician has sent him to the emergency department for possible transfusion. The patient states that he has been transfused in the past approximately 2 years ago. He has also received iron transfusions in the past. He takes a daily oral chemotherapy pill for thyroid cancer. He is also diabetic. He denies any black or bloody stools. Related Data Home Medications Medication Instructions Recorded Confirmed cyclobenzaprine 5 mg tablet 5 mg PO BIDP PRN Muscle spasms 01/20/20 07/28/22 albuterol sulfate 90 mcg/actuation 2 puff IH Q4HP PRN Shortness Of 01/26/21 07/28/22 aerosol inhaler Breath levothyroxine 137 mcg tablet 274 mcg PO DAILY hypothyroidism 01/27/21 07/28/22 lisinopril 40 mg tablet 40 mg PO DAILY Hypertension 02/15/21 07/28/22 acetaminophen 325 mg tablet 1,300 mg PO BID Pain 08/30/21 07/28/22 atorvastatin 20 mg tablet 20 mg PO DAILY Cholesterol 08/30/21 07/28/22 gabapentin 600 mg tablet 600 mg PO BID Pain 08/30/21 07/28/22 hydrochlorothiazide 12.5 mg capsule 25 mg PO DAILY Fluid 08/30/21 07/28/22 insulin detemir U-100 100 unit/mL 40 unit SQ DAILY Diabetes 08/30/21 07/28/22 subcutaneous solution nebivolol 10 mg tablet 20 mg PO HS Hypertension 08/30/21 07/28/22 oxycodone-acetaminophen 10 mg-325 1 each PO Q4HP
[2022-07-28 11:04] LABS: Basophils # 0.1 K/mm3 (0-0.2); Basophils % 0.7 % (0.1-2.0); Eosinophils # 0.6 K/mm3 (0.0-0.4); Hemoglobin 9.9 g/dL (14.1-18.0); Lymphocytes # 0.8 K/mm3 (0.7-4.5); Mean Corpuscular HGB Conc 29.9 g/dL (31.8-35.4); Mean Corpuscular Hemoglobin 30.4 pg (27.0-31.2); Mean Corpuscular Volume 101.6 fl (80-94); Mean Platelet Volume 9.7 fl (7.4-10.4); Monocytes # 0.4 K/mm3 (0.1-1.0); Monocytes % 6.5 % (1.7-9.3); Neutrophils # 4.7 K/mm3 (1.8-7.8); Neutrophils % 71.8 % (37.0-80.0); Platelet Count 214 K/mm3 (142-424); Red Blood Count 3.25 M/mm3 (4.60-6.20); Red Cell Distribution Width 18.9 % (11.5-17.5); White Blood Count 6.5 K/mm3 (4.8-10.8)
[2022-07-28 11:12] LABS: Chloride 109 mmol/L (98-107); Potassium 4.7 mmoL/L (3.5-5.1); Sodium 139 mmol/L (136-145)
[2022-07-28 11:15] LABS: Anion Gap 9.7 mEq/L (5-15); Blood Urea Nitrogen 28 mg/dl (9-20); Carbon Dioxide 25 mmol/L (22.0-30.0); Creatinine Clearance Estimated 65 mL/min (50-200); Estimated Glomerular Filt Rate 51 ml/min (>60); GFR (African American) 62 ML/MIN (>60)
[2022-07-28 11:16] LABS: Calcium 7.3 mg/dl (8.4-10.2); Glucose 137 mg/dl (74-100)
[2022-07-28 11:30] VITALS: BP 150/84
--- NOTE | 2022-07-28 11:35 | PC.NURSE ---
Talked with Dr. Maynard about pt
[2022-07-28 12:00] VITALS: BP 153/82; PULSE 76
--- NOTE | 2022-07-28 12:21 | PC.NURSE ---
speaking with Dr. Smith
[2022-07-28 12:38] VITALS: BP 126/91; PULSE 65; RESP 18; TEMP 36.6; O2SAT 98
== END 2022-07-28 12:46 | disposition home or self-care (01) ==
PROVIDERS: Emergency Provider Emergency Medicine; PCP Family Medicine
DX: D64.9 Anemia, unspecified (principal); E11.9 Type 2 diabetes mellitus without complications; Z85.850 Personal history of malignant neoplasm of thyroid; Z92.21 Personal history of antineoplastic chemotherapy; Z86.79 Personal history of other diseases of the circulatory system; Z87.891 Personal history of nicotine dependence; Z89.512 Acquired absence of left leg below knee
CPT/HCPCS: 80048; 85025; 99283; 99284

== ENCOUNTER → 2022-08-02 11:31 | Outpatient (CLI) | payer MEDICARE, SELFPAY ==
[2022-08-02 12:20] LABS: Basophils % 0.8 % (0.1-2.0); Eosinophils # 0.5 K/mm3 (0.0-0.4); Eosinophils % 8.5 % (0.1-12.0); Hematocrit 33.7 % (42.0-52.0); Hemoglobin 10.3 g/dL (14.1-18.0); Lymphocytes # 0.7 K/mm3 (0.7-4.5); Mean Corpuscular HGB Conc 30.5 g/dL (31.8-35.4); Mean Corpuscular Hemoglobin 30.9 pg (27.0-31.2); Mean Platelet Volume 9.1 fl (7.4-10.4); Monocytes # 0.3 K/mm3 (0.1-1.0); Monocytes % 6.2 % (1.7-9.3); Neutrophils % 72.6 % (37.0-80.0); Platelet Count 204 K/mm3 (142-424); Red Blood Count 3.34 M/mm3 (4.60-6.20); White Blood Count 5.5 K/mm3 (4.8-10.8)
[2022-08-02 12:22] LABS: Chloride 111 mmol/L (98-107); Potassium 5.2 mmoL/L (3.5-5.1); Sodium 142 mmol/L (136-145)
[2022-08-02 12:25] LABS: Anion Gap 11.2 mEq/L (5-15); Blood Urea Nitrogen 41 mg/dl (9-20); Calcium 7.8 mg/dl (8.4-10.2); Carbon Dioxide 25 mmol/L (22.0-30.0); Estimated Glomerular Filt Rate 51 ml/min (>60); GFR (African American) 62 ML/MIN (>60); Glucose 99 mg/dl (74-100); Iron 37 ug/dL (49-181)
[2022-08-02 13:40] LABS: Hemoglobin A1C 5.6 % (4.0-6.0)
[2022-08-02 15:18] LABS: Vitamin B12 592 pg/mL (239-931)
== END ==
PROVIDERS: PCP Family Medicine; Visit Provider Family Medicine
DX: E83.42 Hypomagnesemia (principal); E10.9 Type 1 diabetes mellitus without complications; Z79.4 Long term (current) use of insulin
CPT/HCPCS: 80048; 82607; 83036; 83540; 85025

== ENCOUNTER 2022-08-09 11:38 | Observation (INO) | payer MEDICARE, SELFPAY ==
[2022-08-09] VITALS (12 sets, daily range): BP systolic 83–110; BP diastolic 46–68; PULSE 58–89; RESP 17–20; TEMP 36.2–37.1; O2SAT 94–98; BMI 49.1; BMI 47.0
--- NOTE | 2022-08-09 11:42 | XR_ITS ---
FINAL REPORT CLINICAL HISTORY: cough COMPARISON: 01/03/2022 FINDINGS: SINGLE-VIEW CHEST There is mild cardiomegaly. The previously noted patchy bilateral airspace infiltrates have significantly improved or resolved. There is mild scarring in both lungs. There is no pneumothorax. IMPRESSION: Significant improvement or resolution of the previously identified bilateral airspace infiltrates. Reviewed, Interpreted and Dictated by Adrian Anna MD Transcribed by Lily Chauhan Authenticated and [facility]
[2022-08-09 12:21] LABS: Microscopic, Urine URINE MICROSCOPIC (MICROSCOPIC)
[2022-08-09 12:25] LABS: Appearance,Urine CLEAR (Clear); Bilirubin,Urine Negative (Negative); Blood, Urine Negative (Negative); Color,Urine YELLOW (Yellow); Glucose,Urine (UA) Negative (Negative); Ketones,Urine Negative (Negative); Leukocyte Esterase,Urine 1+ (Negative); Nitrate,Urine Negative (Negative); PH,Urine 5.5 (5.0-8.5); Protein,Urine Negative (Negative); Urobilinogen,Urine 0.2 EU/dl (0.2)
[2022-08-09 12:28] LABS: VBG Base Excess -11.6 mmol/L (-2.4-2.3); VBG HCO3 16.2 mmol/L (23-30); VBG Oxygen Saturation 57.5 % (50-70); VBG PCO2 41.2 mmol/L (35-51); VBG PH 7.21 mmol/L (7.31-7.41); VBG PO2 33.2 mmol/L (28-40); VBG Total CO2 17.5 mmol/L (23-27)
--- NOTE | 2022-08-09 12:32 | HMH.EDGENADL ---
Discharge Plan Disposition Patient Disposition: Admitted As Inpatient Condition: Fair Clinical Impressions Clinical Impression: Acute UTI, Acute urinary retention, Acute dehydration, Acute hyperkalemia Discharge ED Provider: Anshu Garcia General Adult HPI General Chief complaint: Urogenital-Male Stated complaint: weakness Time Seen by Provider: 08/09/22 11:40 Mode of Arrival: EMS Source of Information: Patient Limitations: No Limitations Description of Symptoms (Recalled from ER Triage Doc. by RN): pt to ed via ems c/o scrotal swelling and urinary retention. pt states he has been unable to fully empty his bladder x3 days History of Present Illness HPI narrative: 61-year-old male presents with multiple complaints. He has generalized weakness and scrotal swelling with edema and has had decreased urine output 400 cc over the last 24 hours. Home health sentiment for evaluation. He is feeling generally weak. No fever or chills. No dysuria or hematuria abdominal pain or chest pain. Home health thought that his blood pressure was 70 systolic however in route was 117 systolic. Related Data Home Medications Medication Instructions Recorded Confirmed cyclobenzaprine 5 mg tablet 5 mg PO BIDP PRN Muscle spasms 01/20/20 08/09/22 albuterol sulfate 90 mcg/actuation 2 puff IH Q4HP PRN Shortness Of 01/26/21 07/28/22 aerosol inhaler Breath levothyroxine 137 mcg tablet 274 mcg PO DAILY hypothyroidism 01/27/21 08/09/22 lisinopril 40 mg tablet 40 mg PO DAILY Hypertension 02/15/21 08/09/22 acetaminophen 325 mg tablet 1,300 mg PO BID Pain 08/30/21 07/28/22 atorvastatin 20 mg tablet 20 mg PO HS Cholesterol 08/30/21 08/09/22 gabapentin 600 mg tablet 600 mg PO BID Pain 08/30/21 08/09/22 insulin detemir U-100 100 unit/mL 40 unit SQ DAILY Diabetes 08/30/21 08/09/22 subcutaneous solution oxycodone-acetaminophen 10 mg-325 1 each PO Q4HP PRN neoplasm 08/30/21 08/09/22 mg tablet related pain rivaroxaban 20 mg tablet 20 mg PO QPMWITHMEAL Blood 08/30/21 08/09/22 thinner/DVT hx trazodone 100 mg tablet 100 mg PO HS sleep 08/30/21 08/09/22 cabozantinib 60 mg tablet 60 mg PO DAILY thyroid cancer 12/28/21 08/09/22 doxazosin 1 mg tablet 1 mg PO HS Hypertension 12/28/21 08/09/22 ferrous sulfate 325 mg (65 mg 325 mg PO BID Supplement 12/28/21 07/28/22 iron) tablet insulin aspart U-100 100 unit/mL 20 unit SQ ACHS Diabetes 12/28/21 08/09/22 subcutaneous solution calcium carbonate 200 mg calcium 2,000 mg PO BID acid reflux 01/03/22 07/28/22 (500 mg) chewable tablet pantoprazole 40 mg tablet,delayed 40 mg PO DAILY acid reflux 01/03/22 08/09/22 release magnesium oxide 400 mg PO BID Supplement 07/28/22 08/09/22 potassium chloride 10 mEq 10 meq PO BID potassium replacement 07/28/22 08/09/22 capsule,extended release amlodipine 2.5 mg tablet 2.5 mg PO DAILY blood pressure 08/09/22 08/09/22 hydrochlorothiazide 25 mg tablet 25 mg PO DAILY diuretic 08/09/22 08/09/22 nebivolol 20 mg tablet 20 mg PO HS blood pressure 08/09/22 08/09/22 Allergies Allergy/AdvReac Type Severity Reaction Status Date / Time cefepime Allergy Severe BLEEDING Verified 08/09/22 15:35 SORES pantoprazole [From Protonix] Allergy Severe Diarrhea Verified 08/09/22 15:35 piperacillin [From ZOSYN] Allergy Severe RENAL Verified 08/09/22 15:35 FAILURE tazobactam [From ZOSYN] Allergy Severe RENAL Verified 08/09/22 15:35 FAILURE vancomycin [VANCOMYCIN] Allergy Severe RENAL Verified 08/09/22 15:35 FAILURE ciprofloxacin [From CIPRO] Allergy Intermediate JOINT PAIN Verified 08/09/22 15:35 doxazosin Allergy Intermediate LOW Verified 08/09/22 15:35 BP/DEHYDRATION exenatide [From BYDUREON] Allergy Intermediate Unknown Verified 08/09/22 15:35 allergy reaction hydralazine [HYDRALAZINE] Allergy Intermediate LOW Verified 08/09/22 15:35 BP/DEHYDRATION nifedipine Allergy Intermediate LOW Verified 08/09/22 15:35 BP/DEHYDRATION pioglitazone [From ACTOS] A
[2022-08-09 12:45] LABS: Basophils # 0.1 K/mm3 (0-0.2); Basophils % 0.9 % (0.1-2.0); Eosinophils # 0.5 K/mm3 (0.0-0.4); Eosinophils % 10.1 % (0.1-12.0); Hematocrit 29.9 % (42.0-52.0); Hemoglobin 9.2 g/dL (14.1-18.0); Lymphocytes # 0.6 K/mm3 (0.7-4.5); Lymphocytes % 12.5 % (10-50); Mean Corpuscular HGB Conc 30.8 g/dL (31.8-35.4); Mean Corpuscular Volume 103.7 fl (80-94); Mean Platelet Volume 9.3 fl (7.4-10.4); Monocytes # 0.3 K/mm3 (0.1-1.0); Neutrophils # 3.6 K/mm3 (1.8-7.8); Neutrophils % 70.5 % (37.0-80.0); Platelet Count 197 K/mm3 (142-424); Red Blood Count 2.88 M/mm3 (4.60-6.20); Red Cell Distribution Width 18.6 % (11.5-17.5); White Blood Count 5.1 K/mm3 (4.8-10.8)
[2022-08-09 12:51] LABS: Bacteria,Urine Trace /lpf; Squamous Epithelial Cell,Urine Occasional #/hpf (0-5)
[2022-08-09 12:55] LABS: Alanine Aminotransferase 32 U/L (12-78); Alkaline Phosphatase 181 U/L (38-126); Anion Gap 11.2 mEq/L (5-15); Aspartate Amino Transferase 31 U/L (17-59); Bilirubin,Total 0.2 mg/dl (0.2-1.3); Blood Urea Nitrogen 63 mg/dl (9-20); Calcium 7.3 mg/dl (8.4-10.2); Carbon Dioxide 19 mmol/L (22.0-30.0); Chloride 113 mmol/L (98-107); Creatinine Clearance Estimated 37 mL/min (50-200); Estimated Glomerular Filt Rate 30 ml/min (>60); GFR (African American) 37 ML/MIN (>60); Glucose 120 mg/dl (74-100); Sodium 137 mmol/L (136-145)
[2022-08-09 13:14] LABS: Potassium 6.2 mmoL/L (3.5-5.1)
--- NOTE | 2022-08-09 13:16 | PC.NURSE ---
critical lab result reported to
[2022-08-09 13:24] LABS: Troponin I 0.07 ng/ml (0.00-0.034)
--- NOTE | 2022-08-09 14:52 | PC.NURSE ---
called report to joyce garcia
[2022-08-09 15:02] LABS: Lactic Acid 0.8 mmol/L (0.7-2.1)
[2022-08-09 15:19] LABS: Coronavirus 19, PCR Not Detected (NotDetected); Influenza A, PCR Not Detected (NotDetected); Influenza B, PCR Not Detected (NotDetected)
[2022-08-09 15:27] LABS: Troponin I 0.07 ng/ml (0.00-0.034)
--- NOTE | 2022-08-09 15:37 | PC.NURSE ---
PT ARRIVED TO FLOOR VIA STRETCHER
--- NOTE | 2022-08-09 17:49 | EXP.HP ---
History of Present Illness *Admission Date: 08/09/22 *Reason for visit:: penile and scrotal swelling with decreased urine output *History of present illness: 61-year-old male presents with multiple complaints.? He has generalized weakness and scrotal swelling with edema and has had decreased urine output 400 cc over the last 24 hours.? Home health sent him in for evaluation.? He is feeling generally weak.? No fever or chills.? No dysuria or hematuria abdominal pain or chest pain.? Home health thought that his blood pressure was 70 systolic however in route was 117 systolic. (above as per the ER physician) Patient states he has had the urinary retention and scrotal swelling for approximately 3 days. His BP was low at home and he was having chills and fatigue but no fever. He states they had difficulty placing a catheter in the ER. [facility] Disclaimer: The information contained in this section may have been updated after the patient was seen, as this information can be updated by other users. 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 Rectal bleeding Rectal hemorrhage Type 2 diabetes mellitus Upper gastrointestinal hemorrhage Surgical History (Updated 08/09/22 @ 18:18 by DENISE Dos Santos) History of cataract surgery History of cholecystectomy History of colonoscopy History of coronary artery stent placement History of esophagogastroduodenoscopy (EGD) History of mandibular surgery History of right below knee amputation History of thyroidectomy History of vasectomy Status post coronary artery stent placement Family History Adopted Social History (Updated 08/09/22 @ 18:13 by Flores Adams RN) Smoking Status: Never smoker alcohol intake: never substance use type: denies use current occupational status: disabled Travel in the last 8 weeks: None household members: spouse housing: house current occupational exposures/hazards: No caffeine: Yes Review of Systems Constitutional Constitutional: Denies body ache(s), Reports chills, Reports fatigue, Denies fever(s), Reports headache(s) and Reports weakness Eyes Eyes: Denies blurry vision and Denies loss of vision ENT Ears, Nose, Mouth, and Throat: Reports headache(s), Denies sinus pressure and Denies sore throat *Cardiovascular Cardiovascular: Denies chest pain, Denies dyspnea and Denies leg edema *Respiratory Respiratory: Denies cough and Denies dyspnea *Gastrointestinal Gastrointestinal: Denies abdominal pain, Reports loose stools, Denies nausea and Denies vomiting *Genitourinary Genitourinary: Reports difficulty urinating, Reports dysuria and Reports scrotal swelling *Musculoskeletal Musculoskeletal: Reports back pain and Denies myalgias *Neurologic Neurologic: Reports headache(s), Denies loss of vision and Reports weakness Endocrine Endocrine: Reports fatigue Meds Home Medications and Allergies Home Medications Medication Instructions Recorded Confirmed Type cyclobenzaprine 5 mg tablet 5 mg PO BIDP PRN Muscle spasms 01/20/20 08/09/22 History albuterol sulfate 90 mcg/actuation 2 puff IH Q4HP PRN Shortness Of 01/26/21 07/28/22 History aerosol inhaler Breath levothyroxine 137 mcg tablet 274 mcg PO DAILY hypothyroidism 01/27/21 08/09/22 History lisinopril 40 mg tablet 40 mg PO DAILY Hypertension 02/15/21 08/09/22 H
[2022-08-09 18:11] LABS: Troponin I 0.06 ng/ml (0.00-0.034)
--- NOTE | 2022-08-09 22:53 | PC.NURSE ---
Pt. states he doesn't want his trazodone or magnesium pill tonight.
[2022-08-10] VITALS: BP 98/51; PULSE 78; RESP 20; TEMP 36.9; O2SAT 97
[2022-08-10 04:00] VITALS: BP 117/48; PULSE 92; RESP 20; TEMP 36.7; O2SAT 96; BMI 47.7
--- NOTE | 2022-08-10 04:49 | PC.NURSE ---
No changes noted during the night.
--- NOTE | 2022-08-10 05:56 | PC.NURSE ---
pt. took his own dose of cabozanrinib and synthroid.
[2022-08-10 07:28] VITALS: BP 120/60; PULSE 114; RESP 18; TEMP 36.8; O2SAT 93
[2022-08-10 07:38] LABS: Basophils # 0.1 K/mm3 (0-0.2); Eosinophils # 0.4 K/mm3 (0.0-0.4); Eosinophils % 9.2 % (0.1-12.0); Hematocrit 30.9 % (42.0-52.0); Hemoglobin 9.3 g/dL (14.1-18.0); Lymphocytes # 0.6 K/mm3 (0.7-4.5); Lymphocytes % 12.9 % (10-50); Mean Corpuscular HGB Conc 30.1 g/dL (31.8-35.4); Mean Corpuscular Hemoglobin 30.8 pg (27.0-31.2); Mean Corpuscular Volume 102.3 fl (80-94); Mean Platelet Volume 9.7 fl (7.4-10.4); Monocytes # 0.3 K/mm3 (0.1-1.0); Neutrophils # 3.3 K/mm3 (1.8-7.8); Neutrophils % 69.9 % (37.0-80.0); Platelet Count 202 K/mm3 (142-424); Red Blood Count 3.02 M/mm3 (4.60-6.20); Red Cell Distribution Width 18.7 % (11.5-17.5); White Blood Count 4.7 K/mm3 (4.8-10.8)
[2022-08-10 07:54] LABS: Chloride 114 mmol/L (98-107); Potassium 5.7 mmoL/L (3.5-5.1); Sodium 140 mmol/L (136-145)
[2022-08-10 07:57] LABS: Anion Gap 10.7 mEq/L (5-15); Blood Urea Nitrogen 58 mg/dl (9-20); Calcium 7.4 mg/dl (8.4-10.2); Carbon Dioxide 21 mmol/L (22.0-30.0); Creatinine Clearance Estimated 48 mL/min (50-200); Estimated Glomerular Filt Rate 36 ml/min (>60); GFR (African American) 44 ML/MIN (>60); Glucose 94 mg/dl (74-100)
--- NOTE | 2022-08-10 08:19 | EXP.ACUTE.PN ---
Subjective *Date: 08/10/22 *Time: 08:36 Interval history: Patient is complaining of pain today in his back and in his scrotum. The catheter is irritating and he is unable to sit up without pain. He normally takes Tylenol and gabapentin in the morning and has not had that yet today. His chills have improved. His blood pressure has also improved. Medical Exam Vital signs and Labs for Last 24 Hours: Vital Signs Temp Pulse Pulse Resp BP BP Pulse Ox 08/10/22 07:28 98.3 F 114 H 18 120/60 93 L 08/10/22 04:00 98.0 F 92 H 20 117/48 L 96 08/10/22 00:00 98.4 F 78 20 98/51 L 97 08/09/22 20:00 97 08/09/22 20:00 97.1 F L 81 20 106/46 L 96 08/09/22 16:00 58 L 97 08/09/22 15:30 98.7 F 82 20 99/60 L 08/09/22 15:53 98.7 F 58 L 17 100/50 L 97 08/09/22 15:00 84 18 96/58 L 94 L 08/09/22 14:30 84 18 91/68 L 97 08/09/22 14:00 89 90/51 L 98 08/09/22 13:31 82 18 83/46 L 97 08/09/22 13:00 84 20 101/49 L 94 L 08/09/22 12:30 78 97/58 L 97 08/09/22 12:03 85 98/65 L 98 08/09/22 12:17 98.2 F 84 20 110/64 97 Intake and Output 08/09/22 08/10/22 08/10/22 19:59 03:59 11:59 Intake Total 150 / 2770 2260 / 2770 360 / 2770 Output Total 800 / 1550 750 / 1550 Balance -650 / 1220 2260 / 1220 -390 / 1220 Intake: Intake, Oral Amount 0 / 360 360 / 360 Intake, Total IV Amount 150 / 2410 2260 / 2410 0.9 % Sodium Chloride 1,000 ml 2260 / 2260 @ 999 mls/hr IV .Q1H1M [facility] Rx#: [id number] Levofloxacin/D5w 750 mg/150 ml 150 / 150 750 mg In 150 ml @ 100 mls/hr IV Q48H [facility] Rx#:[id number] Output: Output, Urine Amount 800 / 1550 750 / 1550 Other: Number of Unmeasured Voids 0 0 Weight 376 lb 5 oz 383 lb 14.4 oz Patient Weight 08/10/22 11:59 Weight 383 lb 14.4 oz Laboratory Results - last 24 hr 08/09/22 12:10: Urine Color Yellow, Urine Appearance Clear, Urine pH 5.5, Ur Specific [place] 1.020, Urine Protein Negative, Urine Glucose (UA) Negative, Urine Ketones Negative, Urine Blood Negative, Urine Nitrate Negative, Urine Bilirubin Negative, Urine Urobilinogen 0.2, Ur Leukocyte Esterase 1+ A, Urine RBC None, Urine WBC 10-20, Ur Squamous Epith Cells Occasional, Urine Bacteria Trace 08/09/22 12:11: VBG pH 7.21 L, VBG pCO2 41.2, VBG pO2 33.2, VBG HCO3 16.2 L, VBG Total CO2 17.5 L, VBG O2 Saturation 57.5, VBG Base Excess -11.6 L 08/09/22 12:15: WBC 5.1, RBC 2.88 L, Hgb 9.2 L, Hct 29.9 L, MCV 103.7 H, MCH 32.0 H, MCHC 30.8 L, RDW 18.6 H, Plt Count 197, MPV 9.3, Neut % (Auto) 70.5, Lymph % (Auto) 12.5, [place] % (Auto) 6.0, Eos % (Auto) 10.1, Baso % (Auto) 0.9, Neut # (Auto) 3.6, Lymph # (Auto) 0.6 L, [place] # (Auto) 0.3, Eos # (Auto) 0.5 H, Baso # (Auto) 0.1 08/09/22 12:15: Sodium 137, Potassium 6.2 H*, Chloride 113 H, Carbon Dioxide 19 L, Anion Gap 11.2, BUN 63 H, Creatinine 2.20 H, Estimated Creat Clear 37, Estimated GFR 30 L, Est GFR ( Amer) 37 L, Glucose 120 H, Calcium 7.3 L, Total Bilirubin 0.2, AST 31, ALT 32, Alkaline Phosphatase 181 H, Troponin I 0.07 H, Total Protein 6.0 L, Albumin 3.0 L, Globulin 3.0, Albumin/Globulin Ratio 1.0 L 08/09/22 14:21: SARS-CoV-2 (PCR) Not detected, Influenza A Untype (PCR) Not detected, Influenza Type B (PCR) Not detected 08/09/22 14:37: Troponin I 0.07 H 08/09/22 14:37: Lactate 0.8 08/09/22 17:33: Troponin I 0.06 H 08/10/22 06:30: WBC 4.7 L, RBC 3.02 L, Hgb 9.3 L, Hct 30.9 L, MCV 102.3 H, MCH 30.8, MCHC 30.1 L, RDW 18.7 H, Plt Count 202, MPV 9.7, Neut % (Auto) 69.9, Lymph % (Auto) 12.9, [place] % (Auto) 7.0, Eos % (Auto) 9.2, Baso % (Auto) 1.0, Neut # (Auto) 3.3, Lymph # (Auto) 0.6 L, [place] # (Auto) 0.3, Eos # (Auto) 0.4, Baso # (Auto) 0.1 08/10/22 06:30: Sodium 140, Potassium 5.7 H, Chloride 114 H, Carbon Dioxide 21 L, Anion Gap 10.7, BUN 58 H, Creatinine 1.90 H, Estimated Creat Clear 48, Estimated GFR 36 L, Est GFR ( Amer) 44 L, Glucose 94 D, Calcium 7.4 L I
--- NOTE | 2022-08-10 08:59 | HMH.PHAINT1 ---
Pharmacy Intervention Comments: HOME MEDICATION RECONCILIATION COMPLETED USING LIST FROM OUTPATIENT PHARMACY, PRESCRIPTION BOTTLES AND LENGTHY PATIENT INTERVIEW
--- NOTE | 2022-08-10 09:18 | PC.NURSE ---
zaldivar catheter was placed in ED prior to admission to [facility]/surg
[2022-08-10 11:11] LABS: POC Glucose,Bedside 127 (70-110)
[2022-08-10 14:51] VITALS: BP 95/60; PULSE 89; RESP 17; TEMP 36.7; O2SAT 93
[2022-08-10 18:00] LABS: POC Glucose,Bedside 146 (70-110)
--- NOTE | 2022-08-10 18:50 | PC.NURSE ---
Pt alert and oriented. Percocet q 4 hrs for pain. Turned q 2 hrs and prn. Carter catheter removed. Patient due to void. On room air. VSS. Possible discharge home tomorrow
[2022-08-10 20:00] VITALS: BP 123/65; PULSE 89; RESP 18; TEMP 36.8; O2SAT 97
[2022-08-11 04:00] VITALS: BP 102/62; PULSE 66; RESP 14; TEMP 36.8; O2SAT 95; BMI 47.6
--- NOTE | 2022-08-11 05:31 | PC.NURSE ---
pt rested well, pt used home cpap through the night, vss, pt has voided aprox 200ml of urine post cath removal, pt states it feels like needles when he urinates, pt denies discomfort or bladder distention, no acute distress. no other issues at this time
--- NOTE | 2022-08-11 07:59 | EXP.ACUTE.PN ---
Subjective *Date: 08/11/22 *Time: 08:35 Interval history: Patient states the catheter was removed last night and he was able to urinate about a tablespoon of very dark, bloody urine. He states it was extremely painful. In the night he had about 200cc of output and once again, it was extremely painful, but it was clearing slightly. He has not urinated since that time. He has some mild upper abdominal pain. Medical Exam Vital signs and Labs for Last 24 Hours: Vital Signs Temp Pulse Resp BP Pulse Ox 08/11/22 04:00 98.2 F 66 14 102/62 L 95 08/10/22 20:00 89 97 08/10/22 20:00 98.3 F 89 18 123/65 97 08/10/22 14:51 98.0 F 89 17 95/60 L 93 L Intake and Output 08/10/22 08/11/22 08/11/22 19:59 03:59 11:59 Intake Total 1080 / 1080 Output Total 1400 / 1600 0 / 1600 200 / 1600 Balance -320 / -520 0 / -520 -200 / -520 Intake: Intake, Oral Amount 1080 / 1080 Output: Output, Urine Amount 900 / 1100 0 / 1100 200 / 1100 Output, Urine Amount (Catheter) 500 / 500 Carter 500 / 500 Other: Number of Unmeasured Voids 0 0 Weight 382 lb 14.4 oz Patient Weight 08/11/22 11:59 Weight 382 lb 14.4 oz Laboratory Results - last 24 hr 08/10/22 06:30: Carbon Dioxide 21 L, Anion Gap 10.7, BUN 58 H, Creatinine 1.90 H, Estimated Creat Clear 48, Estimated GFR 36 L, Est GFR ( Amer) 44 L, Glucose 94 D, Calcium 7.4 L 08/10/22 11:01: POC Glucose 127 H 08/10/22 17:50: POC Glucose 146 H I & O for Labs for Last 24 Hours: Intake & Output 08/08/22 08/09/22 08/10/22 08/11/22 11:59 11:59 11:59 11:59 Intake Total 2770 / 2770 1080 / 1080 Output Total 1550 / 1550 1600 / 1600 Balance 1220 / 1220 -520 / -520 Weight 383 lb 14.4 oz 382 lb 14.4 oz Microbiology Reports for the Last 24 Hours: Microbiology 08/09/22 12:10 Urine,Catheterized Urine Culture - Preliminary NO GROWTH AFTER 24 HOURS Constitutional: Present no acute distress Respiratory: Present CTA bilaterally Cardiac: Present Reg Rate and Rhythm GI: Present soft, tenderness (epigastric area) and normal bowel sounds; Absent distention (male): Present scrotal swelling Comment:: catheter has been removed Extremities: Present other (Bilateral lower leg amputations); Absent clubbing or cyanosis Skin: Present intact Neuro: Present alert and awake Assessment and Plan *Assessment and plan (1) Acute UTI: Status: Acute Category: Medical Code(s): N39.0 - Urinary tract infection, site not specified (2) Acute urinary retention: Status: Acute Category: Medical Code(s): R33.8 - Other retention of urine (3) Weakness: Status: Acute Category: Medical Code(s): R53.1 - Weakness (4) Acute dehydration: Status: Acute Category: Medical Code(s): E86.0 - Dehydration (5) Scrotal edema: Status: Acute Category: Medical Code(s): N50.89 - Other specified disorders of the male genital organs (6) Acute hyperkalemia: Status: Acute Category: Medical Code(s): E87.5 - Hyperkalemia (7) Chronic obstructive pulmonary disease: Status: Chronic Category: Medical Code(s): J44.9 - Chronic obstructive pulmonary disease, unspecified (8) Coronary artery disease: Status: Chronic Category: Medical Code(s): I25.10 - Atherosclerotic heart disease of [place] coronary artery without angina pectoris (9) Hypertension: Status: Chronic Category: Medical Code(s): I10 - Essential (primary) hypertension (10) 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
[2022-08-11 08:00] VITALS: BP 127/53; PULSE 93; RESP 22; TEMP 36.5; O2SAT 96
[2022-08-11 08:47] LABS: Basophils % 0.8 % (0.1-2.0); Eosinophils # 0.3 K/mm3 (0.0-0.4); Eosinophils % 7.6 % (0.1-12.0); Hematocrit 30.3 % (42.0-52.0); Hemoglobin 9.4 g/dL (14.1-18.0); Lymphocytes # 0.6 K/mm3 (0.7-4.5); Lymphocytes % 16.5 % (10-50); Mean Corpuscular HGB Conc 30.9 g/dL (31.8-35.4); Mean Corpuscular Hemoglobin 30.8 pg (27.0-31.2); Mean Corpuscular Volume 99.7 fl (80-94); Mean Platelet Volume 10.1 fl (7.4-10.4); Monocytes # 0.2 K/mm3 (0.1-1.0); Monocytes % 6.2 % (1.7-9.3); Neutrophils # 2.6 K/mm3 (1.8-7.8); Neutrophils % 68.8 % (37.0-80.0); Platelet Count 204 K/mm3 (142-424); Red Blood Count 3.04 M/mm3 (4.60-6.20); Red Cell Distribution Width 18.9 % (11.5-17.5); White Blood Count 3.8 K/mm3 (4.8-10.8)
[2022-08-11 08:51] LABS: Chloride 113 mmol/L (98-107)
[2022-08-11 08:52] LABS: Potassium 5.1 mmoL/L (3.5-5.1); Sodium 139 mmol/L (136-145)
[2022-08-11 08:55] LABS: Anion Gap 10.1 mEq/L (5-15); Blood Urea Nitrogen 54 mg/dl (9-20); Calcium 7.4 mg/dl (8.4-10.2); Carbon Dioxide 21 mmol/L (22.0-30.0); Creatinine Clearance Estimated 50 mL/min (50-200); Estimated Glomerular Filt Rate 38 ml/min (>60); GFR (African American) 46 ML/MIN (>60); Glucose 132 mg/dl (74-100)
[2022-08-11 09:42] VITALS: BMI 47.4
[2022-08-11 10:17] LABS: POC Glucose,Bedside 114 (70-110)
[2022-08-11 10:17] LABS: POC Glucose,Bedside 149 (70-110)
[2022-08-11 14:12] LABS: POC Glucose,Bedside 129 (70-110)
--- NOTE | 2022-08-14 13:02 | CARE MANAGER ---
Spoke with patient for post-discharge phone interview, no issues noted.
--- NOTE | 2022-08-14 15:29 | CARE MANAGER ---
Patient is already established with [facility] with home health, no new needs noted.
--- NOTE | 2022-08-14 16:21 | EXP.DC.SUM ---
General Admission date:: 08/09/22 Discharge date: 08/12/22 HPI HPI HPI: 61-year-old male presents with multiple complaints.? He has generalized weakness and scrotal swelling with edema and has had decreased urine output 400 cc over the last 24 hours.? Home health sent him in for evaluation.? He is feeling generally weak.? No fever or chills.? No dysuria or hematuria abdominal pain or chest pain.? Home health thought that his blood pressure was 70 systolic however in route was 117 systolic. (above as per the ER physician) Patient stated he was having urinary retention and scrotal swelling for previous 3 days. His BP was low at home and he was having chills and fatigue but no fever. He stated they had difficulty placing a catheter in the ER. Hospital Course Hospital Course Hospital Course: Hydration was initiated in the emergency room as well as Levaquin IV. Penile and scrotal swelling were noted. Patient was noted to be hypotensive and appeared to have a UTI with SUGEY and elevated troponin. Chills did improve as well as his blood pressure. H&H, potassium and renal function also improved. Troponin trended downward. Carter catheter was removed and he was able to void. Urine did clear. And on 08/11 he was afebrile. Urine culture showed no growth after 24 hours. He was felt to be stable to be discharged to home with oral Levaquin. He was to follow-up with Dr. Pandya in 1 week. Exam Data for Last 24 hours Vital signs and Labs for Last 24 Hours: Temp Pulse Resp BP Pulse Ox 97.7 F 93 H 22 127/53 L 96 08/11/22 08:00 08/11/22 08:00 08/11/22 08:00 08/11/22 08:00 08/11/22 08:00 08/09/22 12:10:?Urine Color Yellow, Urine Appearance Clear, Urine pH 5.5, Ur Specific Damon 1.020, Urine Protein Negative, Urine Glucose (UA) Negative, Urine Ketones Negative, Urine Blood Negative, Urine Nitrate Negative, Urine Bilirubin Negative, Urine Urobilinogen 0.2,?Ur Leukocyte Esterase 1+ A, Urine RBC None, Urine WBC 10-20, Ur Squamous Epith Cells Occasional, Urine Bacteria Trace 08/09/22 12:11: VBG pH 7.21 L, VBG pCO2 41.2, VBG pO2 33.2,?VBG HCO3 16.2 L,?VBG Total CO2 17.5 L, VBG O2 Saturation 57.5,?VBG Base Excess -11.6 L 08/09/22 12:15:?WBC 5.1,?RBC 2.88 L,?Hgb 9.2 L,?Hct 29.9 L,?MCV 103.7 H,?MCH 32.0 H,?MCHC 30.8 L,?RDW 18.6 H, Plt Count 197, MPV 9.3, Neut % (Auto) 70.5, Lymph % (Auto) 12.5, [place] % (Auto) 6.0, Eos % (Auto) 10.1, Baso % (Auto) 0.9, Neut # (Auto) 3.6,?Lymph # (Auto) 0.6 L, [place] # (Auto) 0.3,?Eos # (Auto) 0.5 H, Baso # (Auto) 0.1 08/09/22 12:15:?Sodium 137,?Potassium 6.2 H*,?Chloride 113 H,?Carbon Dioxide 19 L, Anion Gap 11.2,?BUN 63 H,?Creatinine 2.20 H, Estimated Creat Clear 37,?Estimated GFR 30 L,?Est GFR ( Amer) 37 L,?Glucose 120 H,?Calcium 7.3 L, Total Bilirubin 0.2, AST 31, ALT 32,?Alkaline Phosphatase 181 H,?Troponin I 0.07 H,?Total Protein 6.0 L,?Albumin 3.0 L, Globulin 3.0,?Albumin/Globulin Ratio 1.0 L 08/09/22 14:21:?SARS-CoV-2 (PCR) Not detected, Influenza A Untype (PCR) Not detected, Influenza Type B (PCR) Not detected 08/09/22 14:37: Troponin I 0.07 H 08/09/22 14:37:?Lactate 0.8 08/09/22 17:33: Troponin I 0.06 H 08/10/22 06:30: WBC 4.7 L,?RBC 3.02 L,?Hgb 9.3 L,?Hct 30.9 L,?MCV 102.3 H, MCH 30.8,?MCHC 30.1 L,?RDW 18.7 H, Plt Count 202, MPV 9.7, Neut % (Auto) 69.9, Lymph % (Auto) 12.9, [place] % (Auto) 7.0, Eos % (Auto) 9.2, Baso % (Auto) 1.0, Neut # (Auto) 3.3,?Lymph # (Auto) 0.6 L, [place] # (Auto) 0.3, Eos # (Auto) 0.4, Baso # (Auto) 0.1 08/10/22 06:30:?Sodium 140,?Potassium 5.7 H,?Chloride 114 H,?Carbon Dioxide 21 L, Anion Gap 10.7,?BUN 58 H,?Creatinine 1.90 H, Estimated Creat Clear 48,?Estimated GFR 36 L,?Est GFR ( Amer) 44 L,?Glucose 94? D,?Calcium 7.4 L I & O for Last 24 hours: Intake & Output 08/12/22 08/13/22 08/14/22 08/15/22 11:59 11:59 11:59 11:59 Intake Total 120 / 120 Balance 120 / 120 Radiology Reports for the Last 24 Hours: 08/09/2022 CXR FINDINGS: SINGLE-VIEW CHEST? There is mild cardiome
== END 2022-08-11 17:05 | disposition home health service (06) ==
LOC: ER 14:23 → 2ND 08-10 01:12
PROVIDERS: Physician Assistant; Admitting Provider Family Medicine; Emergency Provider Emergency Medicine; PCP Family Medicine; Visit Provider Family Medicine
DX: N39.0 Urinary tract infection, site not specified (principal); E86.0 Dehydration; E87.5 Hyperkalemia; J44.9 Chronic obstructive pulmonary disease, unspecified; I25.10 Atherosclerotic heart disease of native coronary artery without angina pectoris; I10 Essential (primary) hypertension; C73 Malignant neoplasm of thyroid gland; C79.51 Secondary malignant neoplasm of bone; E11.40 Type 2 diabetes mellitus with diabetic neuropathy, unspecified; Z79.4 Long term (current) use of insulin; Z95.5 Presence of coronary angioplasty implant and graft; M47.816 Spondylosis without myelopathy or radiculopathy, lumbar region; M54.16 Radiculopathy, lumbar region; Z86.718 Personal history of other venous thrombosis and embolism; Z86.711 Personal history of pulmonary embolism; Z89.512 Acquired absence of left leg below knee; Z89.511 Acquired absence of right leg below knee; Z87.891 Personal history of nicotine dependence; Z79.810 Long term (current) use of selective estrogen receptor modulators (SERMs); Z79.01 Long term (current) use of anticoagulants; Z79.899 Other long term (current) drug therapy; R33.8 Other retention of urine; N50.89 Other specified disorders of the male genital organs
CPT/HCPCS: G0378; 36415; 71045; 80048; 80053; 81001; 82803; 82962; 83605; 84484; 85025; 87086; 94640; 99285; C9803; J1956; U0003; U0005

== ENCOUNTER 2022-08-18 11:40 | Emergency (ER) | payer MEDICARE, SELFPAY ==
[2022-08-18] VITALS (7 sets, daily range): BP systolic 107–123; BP diastolic 63–78; PULSE 80–104; RESP 12–18; TEMP 36.6; O2SAT 96–100; BMI 58.2
--- NOTE | 2022-08-18 11:48 | ECG_ITS ---
APPROVED REPORT Exam: Resting ECG HR:92 bpm ECG Measurements Heart Rate 92 AXES QRSd 89 QRS 86 QT 342 T 60 QTc 392 Conclusion ATRIAL FIBRILLATION LOW QRS VOLTAGE [QRS DEFLECTION < 0.5/1.0 mV IN LIMB/CHEST LEADS] ABNORMAL ECG UNCONFIRMED REPORT Electronically signed by : Richie Coulter MD 08/19/2022 08:51:40
--- NOTE | 2022-08-18 11:48 | XR_ITS ---
FINAL REPORT CLINICAL HISTORY: dyspnea FINDINGS: A portable view of the chest was obtained. Comparison is made to a prior exam dated 01/03/2022. Cardiomegaly and prominent mediastinum are stable. There has been interval worsening of bibasilar opacities. There are bilateral pleural effusions. There is no pneumothorax. IMPRESSION: Bibasilar opacities with bilateral pleural effusions and cardiomegaly, could be related to pulmonary edema or pneumonia. Reviewed, Interpreted and Dictated by Shelli Pruitt MD Transcribed by Suma Evans Authenticated and [facility]
--- NOTE | 2022-08-18 11:48 | HMH.EDGENADL ---
Discharge Plan Disposition Patient Disposition: Home, Self-Care Condition: Fair Prescriptions Prescriptions: New Lokelma 10 gram powder in packet 10 g PO TID 5 Days Qty: 30 0RF Rx Instructions: 10g TID for 2 days, followed by 10g qday day 3-5 until your potassium is re-checked No Action cyclobenzaprine 5 mg tablet 5 mg PO TIDP PRN (Reason: Muscle spasms) lisinopril 40 mg tablet 40 mg PO DAILY levothyroxine 137 MCG tablet 274 mcg PO 0630 doxazosin 1 MG tablet 1 mg PO HS insulin aspart U-100 100 UNIT/ML solution 0 unit SQ HS Rx Instructions: sliding scale insulin ferrous sulfate 325 MG tablet 325 mg PO 1200 cabozantinib 60 MG tablet 60 mg PO 0630 pantoprazole 40 MG tablet,delayed release (DR/EC) 40 mg PO HS calcium carbonate 500 MG tablet,chewable 2,000 mg PO BID acetaminophen 325 MG tablet 1,300 mg PO BID gabapentin 600 MG tablet 600 mg PO BID atorvastatin 20 MG tablet 20 mg PO HS oxycodone-acetaminophen 1 EACH tablet 1 each PO Q4HP PRN (Reason: neoplasm related pain) trazodone 100 MG tablet 100 mg PO HS Levemir U-100 Insulin 100 UNIT/ML solution 25 unit SQ HS rivaroxaban 20 MG tablet 20 mg PO QPMWITHMEAL potassium chloride 10 mEq capsule, extended release 10 meq PO BID Rx Instructions: TAKE 1 CAPSULE TWICE DAILY magnesium oxide 400 mg magnesium capsule 800 mg PO BID amlodipine 2.5 mg tablet 2.5 mg PO BID nebivolol 20 mg tablet 20 mg PO HS hydrochlorothiazide 25 mg tablet 25 mg PO DAILY ferrous sulfate 325 mg (65 mg iron) Tablet 650 mg PO HS calcium citrate 1,000 mg Tablet 1,000 mg PO TID Combivent Respimat 20-100 mcg/actuation Mist 1 puff INHALATION BID Rx Instructions: and prn if needed levofloxacin 500 mg tablet 500 mg PO DAILY Qty: 10 0RF Referrals Follow up/Referrals: Prem Pandya MD [Primary Care Provider] - See instructions Activity Restrictions/Add. Instructions Additional Instructions/Restrictions: You have diffuse body wall edema with no emergent medical condition identified. I would like your primary care doctor to further look into the diagnosis of heart failure. Return with any worsening shortness of breath. You have chronic kidney disease chronically low albumin which could be contributing to your diffuse body edema. Your sacral decubitus ulcer does not show any signs of infection. He did have a potassium of 6.0 today without any EKG changes. Lokelma was prescribed until you can have your potassium rechecked next week. Please follow-up with Dr. Pandya early next week for repeat BMP. Also please discontinue your potassium supplementation until that time. Clinical Impressions Clinical Impression: Acute hyperkalemia, Edema, CKD (chronic kidney disease), Morbid obesity, Hypoalbuminemia, Pulmonary edema Discharge ED Provider: Jd Oquendo General Adult HPI General Chief complaint: Shortness of Breath/Dyspnea Stated complaint: soa Time Seen by Provider: 08/18/22 11:48 History of Present Illness HPI narrative: Patient is a 61-year-old male brought in by EMS for shortness of breath and diffuse body edema. States he had decreased urine output over the last few days denies any history of heart failure. Denies any fevers chills cough. Nursing support at the bedside who know this patient well states he presents often with similar presentation. Patient states that his edema is not on localized and throughout his entire body. Denies any wheezing denies any productive cough denies any other painful condition at the moment. Related Data Home Medications Medication Instructions Recorded Confirmed cyclobenzaprine 5 mg tablet 5 mg PO TIDP PRN Muscle spasms 01/20/20 08/10/22 levothyroxine 137 mcg tablet 274 mcg PO 0630 hypothyroidism 01/27/21 08/10/22 lisinopril 40 mg tablet 40 m
--- NOTE | 2022-08-18 11:57 | PC.NURSE ---
XR at bedside
[2022-08-18 13:00] LABS: Basophils # 0.1 K/mm3 (0-0.2); Basophils % 0.8 % (0.1-2.0); Eosinophils # 0.4 K/mm3 (0.0-0.4); Eosinophils % 6.8 % (0.1-12.0); Hematocrit 27.8 % (42.0-52.0); Hemoglobin 8.6 g/dL (14.1-18.0); Lymphocytes # 0.6 K/mm3 (0.7-4.5); Mean Corpuscular HGB Conc 30.9 g/dL (31.8-35.4); Mean Corpuscular Hemoglobin 31.2 pg (27.0-31.2); Mean Platelet Volume 9.5 fl (7.4-10.4); Monocytes # 0.3 K/mm3 (0.1-1.0); Monocytes % 5.5 % (1.7-9.3); Neutrophils # 4.7 K/mm3 (1.8-7.8); Platelet Count 200 K/mm3 (142-424); Red Blood Count 2.76 M/mm3 (4.60-6.20); Red Cell Distribution Width 18.8 % (11.5-17.5); White Blood Count 6.1 K/mm3 (4.8-10.8)
[2022-08-18 13:03] LABS: Chloride 114 mmol/L (98-107); Sodium 138 mmol/L (136-145)
[2022-08-18 13:05] LABS: Alanine Aminotransferase 31 U/L (12-78); Aspartate Amino Transferase 33 U/L (17-59); Blood Urea Nitrogen 45 mg/dl (9-20); Creatinine Clearance Estimated 35 mL/min (50-200); Estimated Glomerular Filt Rate 36 ml/min (>60); GFR (African American) 44 ML/MIN (>60)
[2022-08-18 13:06] LABS: Albumin Level 2.8 g/dl (3.5-5.0); Alkaline Phosphatase 160 U/L (38-126); Bilirubin,Total 0.2 mg/dl (0.2-1.3); Calcium 6.9 mg/dl (8.4-10.2); Carbon Dioxide 21 mmol/L (22.0-30.0); Globulin 2.9 g/dL (1.3-3.2); Glucose 103 mg/dl (74-100); Total Protein,Serum 5.7 g/dl (6.3-8.2)
[2022-08-18 13:07] LABS: INR 2.71 (0.9-1.1); Prothrombin Time 27.7 seconds (10.1-12.5)
[2022-08-18 13:15] LABS: NT Pro Brain Natriuretic Pep. 2200 pg/mL (0-125)
[2022-08-18 13:55] LABS: Microscopic, Urine URINE MICROSCOPIC (MICROSCOPIC)
--- NOTE | 2022-08-18 14:06 | PC.NURSE ---
Repositioned patient to right side with pillow support to offset pressure.
[2022-08-18 14:10] LABS: Appearance,Urine CLEAR (Clear); Bilirubin,Urine Negative (Negative); Blood, Urine Negative (Negative); Color,Urine YELLOW (Yellow); Glucose,Urine (UA) Negative (Negative); Ketones,Urine Negative (Negative); Leukocyte Esterase,Urine TRACE (Negative); Nitrate,Urine Negative (Negative); Protein,Urine Negative (Negative); Urobilinogen,Urine 0.2 EU/dl (0.2)
--- NOTE | 2022-08-18 16:11 | PC.NURSE ---
Prosthetic legs applied with assist x 2. Pt pivoted to wheelchair with assistance of walker. Pt assisted to vehicle. No distress noted.
== END 2022-08-18 16:11 | disposition home or self-care (01) ==
PROVIDERS: Emergency Provider Student in an Organized Health Care Education/Training Program; PCP Family Medicine
DX: E87.5 Hyperkalemia (principal); N18.9 Chronic kidney disease, unspecified; J81.0 Acute pulmonary edema; R77.0 Abnormality of albumin; J45.909 Unspecified asthma, uncomplicated; J44.9 Chronic obstructive pulmonary disease, unspecified; E11.9 Type 2 diabetes mellitus without complications; Z90.49 Acquired absence of other specified parts of digestive tract; Z86.711 Personal history of pulmonary embolism; Z86.718 Personal history of other venous thrombosis and embolism
CPT/HCPCS: 71045; 80053; 81001; 83880; 85025; 85610; 93005; 99285

== ENCOUNTER → 2022-08-24 11:42 | Outpatient (CLI) | payer MEDICARE, SELFPAY ==
[2022-08-24 13:06] LABS: Anion Gap 7.5 mEq/L (5-15); Blood Urea Nitrogen 72 mg/dl (9-20); Calcium 6.9 mg/dl (8.4-10.2); Carbon Dioxide 21 mmol/L (22.0-30.0); Chloride 114 mmol/L (98-107); Estimated Glomerular Filt Rate 27 ml/min (>60); GFR (African American) 33 ML/MIN (>60); Glucose 93 mg/dl (74-100); Potassium 4.5 mmoL/L (3.5-5.1); Sodium 138 mmol/L (136-145)
== END ==
PROVIDERS: PCP Family Medicine; Visit Provider Family Medicine
DX: N39.0 Urinary tract infection, site not specified (principal)
CPT/HCPCS: 80048

== ENCOUNTER 2022-08-28 11:00 | Observation (INO) | payer MEDICARE, SELFPAY ==
[2022-08-28] VITALS (13 sets, daily range): BP systolic 80–126; BP diastolic 41–87; PULSE 75–101; RESP 16–20; TEMP 36.3–37; O2SAT 20–100; BMI 43.7; BMI 52.0
[2022-08-28 11:23] LABS: Microscopic, Urine URINE MICROSCOPIC (MICROSCOPIC)
[2022-08-28 11:25] LABS: Basophils % 0.7 % (0.1-2.0); Eosinophils # 0.4 K/mm3 (0.0-0.4); Eosinophils % 6.8 % (0.1-12.0); Hematocrit 30.7 % (42.0-52.0); Hemoglobin 9.6 g/dL (14.1-18.0); Lymphocytes # 0.5 K/mm3 (0.7-4.5); Lymphocytes % 9.5 % (10-50); Mean Corpuscular HGB Conc 31.3 g/dL (31.8-35.4); Mean Corpuscular Hemoglobin 30.8 pg (27.0-31.2); Mean Corpuscular Volume 98.2 fl (80-94); Mean Platelet Volume 9.1 fl (7.4-10.4); Monocytes # 0.4 K/mm3 (0.1-1.0); Monocytes % 7.6 % (1.7-9.3); Neutrophils # 3.9 K/mm3 (1.8-7.8); Neutrophils % 75.4 % (37.0-80.0); Platelet Count 272 K/mm3 (142-424); Red Blood Count 3.12 M/mm3 (4.60-6.20); Red Cell Distribution Width 18.7 % (11.5-17.5); White Blood Count 5.1 K/mm3 (4.8-10.8)
--- NOTE | 2022-08-28 11:25 | ECG_ITS ---
APPROVED REPORT Exam: Resting ECG HR:78 bpm ECG Measurements Heart Rate 78 AXES QRSd 96 QRS 69 QT 383 T 59 QTc 417 Conclusion ATRIAL FIBRILLATION LOW QRS VOLTAGE [QRS DEFLECTION < 0.5/1.0 mV IN LIMB/CHEST LEADS] PATTERN CONSISTENT WITH PULMONARY DISEASE SEPTAL MYOCARDIAL INFARCTION , PROBABLY OLD [40+ ms Q WAVE IN V1/V2] ABNORMAL ECG UNCONFIRMED REPORT Electronically signed by : iRchie Coulter MD 08/29/2022 20:31:22
[2022-08-28 11:35] LABS: Chloride 113 mmol/L (98-107)
[2022-08-28 11:36] LABS: Potassium 4.6 mmoL/L (3.5-5.1); Sodium 141 mmol/L (136-145)
[2022-08-28 11:38] LABS: Blood Urea Nitrogen 77 mg/dl (9-20); Creatinine Clearance Estimated 41 mL/min (50-200); Estimated Glomerular Filt Rate 30 ml/min (>60); GFR (African American) 37 ML/MIN (>60)
[2022-08-28 11:39] LABS: Alanine Aminotransferase 30 U/L (12-78); Albumin/Globulin Ratio 0.9 (1.1-1.8); Alkaline Phosphatase 250 U/L (38-126); Anion Gap 7.6 mEq/L (5-15); Aspartate Amino Transferase 32 U/L (17-59); Calcium 7.4 mg/dl (8.4-10.2); Carbon Dioxide 25 mmol/L (22.0-30.0); Globulin 3.3 g/dL (1.3-3.2); Glucose 90 mg/dl (74-100); Total Protein,Serum 6.3 g/dl (6.3-8.2)
[2022-08-28 11:43] LABS: Appearance,Urine CLEAR (Clear); Bilirubin,Urine Negative (Negative); Blood, Urine Negative (Negative); Color,Urine YELLOW (Yellow); Glucose,Urine (UA) Negative (Negative); Ketones,Urine Negative (Negative); Leukocyte Esterase,Urine 1+ (Negative); Nitrate,Urine Negative (Negative); PH,Urine 5.5 (5.0-8.5); Protein,Urine Negative (Negative); Urobilinogen,Urine 0.2 EU/dl (0.2)
[2022-08-28 11:45] LABS: Bilirubin,Total 0.1 mg/dl (0.2-1.3)
[2022-08-28 11:48] LABS: NT Pro Brain Natriuretic Pep. 3810 pg/mL (0-125)
[2022-08-28 12:08] LABS: Troponin I < 0.01 ng/ml (0.00-0.034)
[2022-08-28 12:26] LABS: Squamous Epithelial Cell,Urine Occasional #/hpf (0-5)
--- NOTE | 2022-08-28 12:46 | XR_ITS ---
FINAL REPORT CLINICAL HISTORY: soa FINDINGS: A portable view of the chest was obtained. Comparison is made to a prior exam dated 08/18/2022. The heart is again noted to be enlarged. The mediastinum is prominent. There are likely stable bibasilar opacities and bilateral pleural effusions. There is no pneumothorax. IMPRESSION: Likely stable bibasilar opacities and bilateral pleural effusions. Reviewed, Interpreted and Dictated by Shelli Pruitt MD Transcribed by Suma Evans Authenticated and [facility]
--- NOTE | 2022-08-28 12:48 | HMH.EDGENADL ---
Discharge Plan Disposition Chief Complaint: Abdominal Pain Prescriptions Prescriptions: No Action cyclobenzaprine 5 mg tablet 5 mg PO TIDP PRN (Reason: Muscle spasms) lisinopril 40 mg tablet 40 mg PO DAILY levothyroxine 137 MCG tablet 274 mcg PO 0630 doxazosin 1 MG tablet 1 mg PO HS insulin aspart U-100 100 UNIT/ML solution 0 unit SQ HS Rx Instructions: sliding scale insulin ferrous sulfate 325 MG tablet 325 mg PO 1200 cabozantinib 60 MG tablet 60 mg PO 0630 pantoprazole 40 MG tablet,delayed release (DR/EC) 40 mg PO HS calcium carbonate 500 MG tablet,chewable 2,000 mg PO BID acetaminophen 325 MG tablet 1,300 mg PO BID gabapentin 600 MG tablet 600 mg PO BID atorvastatin 20 MG tablet 20 mg PO HS oxycodone-acetaminophen 1 EACH tablet 1 each PO Q4HP PRN (Reason: neoplasm related pain) trazodone 100 MG tablet 100 mg PO HS Levemir U-100 Insulin 100 UNIT/ML solution 25 unit SQ HS rivaroxaban 20 MG tablet 20 mg PO QPMWITHMEAL potassium chloride 10 mEq capsule, extended release 10 meq PO BID Rx Instructions: TAKE 1 CAPSULE TWICE DAILY magnesium oxide 400 mg magnesium capsule 800 mg PO BID amlodipine 2.5 mg tablet 2.5 mg PO BID nebivolol 20 mg tablet 20 mg PO HS hydrochlorothiazide 25 mg tablet 25 mg PO DAILY ferrous sulfate 325 mg (65 mg iron) Tablet 650 mg PO HS calcium citrate 1,000 mg Tablet 1,000 mg PO TID Combivent Respimat 20-100 mcg/actuation Mist 1 puff INHALATION BID Rx Instructions: and prn if needed levofloxacin 500 mg tablet 500 mg PO DAILY Qty: 10 0RF Lokelma 10 gram powder in packet 10 g PO TID 5 Days Qty: 30 0RF Rx Instructions: 10g TID for 2 days, followed by 10g qday day 3-5 until your potassium is re-checked Referrals Follow up/Referrals: Prem Pandya MD [Primary Care Provider] - See instructions Instructions Patient Instructions: DI for Acute Abdominal Pain Discharge ED Provider: Reagan Abebe General Adult HPI General Chief complaint: Abdominal Pain Stated complaint: Dysuria, hesitancy Time Seen by Provider: 08/28/22 12:16 Mode of Arrival: EMS Source of Information: Patient Limitations: Physical Limitations Description of Symptoms (Recalled from ER Triage Doc. by RN): Pt reports burning with urination, and difficulty initiating stream, per EMS reports only 2 oz UOP today and pt with increased swelling, and relates changes to potassium replacement Rx but no changes to diuretic Rx, NAD History of Present Illness HPI narrative: Patient presents with a 3-day history of swelling as well as shortness of air. He denies chest pain. There is been no fever. He has had prior swelling for several months however is worse of late. Related Data Home Medications Medication Instructions Recorded Confirmed cyclobenzaprine 5 mg tablet 5 mg PO TIDP PRN Muscle spasms 01/20/20 08/10/22 levothyroxine 137 mcg tablet 274 mcg PO 06 hypothyroidism 01/27/21 08/10/22 lisinopril 40 mg tablet 40 mg PO DAILY Hypertension 02/15/21 08/09/22 acetaminophen 325 mg tablet 1,300 mg PO BID Pain 08/30/21 08/10/22 atorvastatin 20 mg tablet 20 mg PO HS Cholesterol 08/30/21 08/09/22 gabapentin 600 mg tablet 600 mg PO BID Pain 08/30/21 08/09/22 insulin detemir U-100 100 unit/mL 25 unit SQ HS Diabetes 08/30/21 08/10/22 subcutaneous solution (Levemir U-100 Insulin) oxycodone-acetaminophen 10 mg-325 1 each PO Q4HP PRN neoplasm 08/30/21 08/09/22 mg tablet related pain rivaroxaban 20 mg tablet 20 mg PO QPMWITHMEAL Blood 08/30/21 08/09/22 thinner/DVT hx trazodone 100 mg tablet 100 mg PO HS sleep 08/30/21 08/09/22 cabozantinib 60 mg tablet 60 mg PO 0630 thyroid cancer 12/28/21 08/10/22 doxazosin 1 mg tablet 1 mg PO HS Hypertension 12/28/21 08/09/22 ferrous sulfate 325 mg (65 mg 325 mg PO 1200 Supplement
[2022-08-28 14:42] LABS: Troponin I < 0.01 ng/ml (0.00-0.034)
--- NOTE | 2022-08-28 16:48 | PC.NURSE ---
BED ASSIGNMENT REQUESTED, ALL STAFF NOTIFIED. ROOM 200
--- NOTE | 2022-08-28 17:04 | EXP.HP ---
History of Present Illness *Admission Date: 08/28/22 *Reason for visit:: edema *History of present illness: Mr. Worthy is a 61-year-old male patient with a complicated medical history which includes type 2 diabetes mellitus, hypertension, asthma, arthritis, metastatic follicular thyroid carcinoma, DVT/pulmonary emboli.? ASCVD status post coronary stent, peptic ulcer disease, and bilateral below the knee amputations who presented to [facility] via EMS after experiencing an increase in swelling and shortness of breath. Home health visited him today and felt he should be evaluated in the emergency room. He was brought to ER for evaluation via EMS. states she has had a difficult time in caring for him. He has not been out of bed for about a month because he has been unable to put his prosthesises on. Therefore he has also been unable to have office visits for follow-up. He has some nausea but has been able to eat and drink. He has had no diarrhea. In the emergency room patient reported having burning with urination and difficulty in initiating stream. reported only 2 ounces of urinary output today with the increase in the swelling. Patient does deny chest pain and has had no fever. He denies cough and any upper respiratory symptoms. With evaluation in the emergency room he was given 80 mg of Lasix. He was afebrile O2 sats were satisfactory at 95-99% on room air. He was afebrile. WBCs were 5100 with a hemoglobin of 9.6 and hematocrit of 30.7. BNP was 3810.Chest x-ray revealed heart to be enlarged with a prominent mediastinum likely stable bibasilar opacities and bilateral pleural effusions. He will be admitted for further evaluation and treatment with diuresis. He will need a Carter catheter and wound management. [facility] Disclaimer: The information contained in this section may have been updated after the patient was seen, as this information can be updated by other users. Medical History Abscess Abscess of skin or subcutaneous tissue Acute pulmonary embolus Amputation of fifth toe of right foot Anemia Asthma Asthma Atypical angina Cellulitis Charcot foot due to diabetes mellitus Cholecystitis Chronic obstructive pulmonary disease Conjunctivitis, right eye Coronary artery disease COVID-19 Dehiscence of incision Diabetic ulcer of right foot Diabetic ulcer of right midfoot associated with type 2 diabetes mellitus, with fat layer exposed Dizziness DVT (deep venous thrombosis) Dyspnea Enterococcus faecalis infection Ex-smoker Facial weakness Headache History of cancer chemotherapy History of cancer chemotherapy History of DVT (deep vein thrombosis) History of intestinal obstruction History of left below knee amputation History of left below knee amputation History of peptic ulcer History of peptic ulcer disease History of peptic ulcer disease History of pulmonary embolus (PE) Hypersomnolence Hypertension Hypomagnesemia Involuntary movements Klebsiella infection Laceration of right ring finger jail current use of anticoagulant therapy Lumbar radiculopathy Malignant neoplasm metastatic to lung Nausea Nausea vomiting and diarrhea Near syncope Numbness in right leg Obesity Osteoarthritis of lumbar spine Osteomyelitis Osteomyelitis of fifth toe of right foot Osteomyelitis of right foot Other chronic osteomyelitis, right ankle and foot Pathological fracture of acetabulum Postoperative edema Prepyloric ulcer Prepyloric ulcer Pressure ulcer 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
[2022-08-28 17:33] LABS: Coronavirus 19, PCR Not Detected (NotDetected); Influenza A, PCR Not Detected (NotDetected); Influenza B, PCR Not Detected (NotDetected)
--- NOTE | 2022-08-28 18:03 | PC.NURSE ---
Dr. Maynard at bedside of pt
--- NOTE | 2022-08-28 18:06 | PC.NURSE ---
Report called to Alethea Long RN inpatient, plan of care, presenting complaints, eval findings communicated and no further questions, will come down to transport pt
--- NOTE | 2022-08-28 18:21 | PC.NURSE ---
Inpt staff at bedside to transport pt, notified of new Carter catheter placed per Hospital admitting physician
--- NOTE | 2022-08-28 18:21 | PC.NURSE ---
Approx 1700 today, pt was able to void 550mL of more concentrated urine into jug
--- NOTE | 2022-08-28 18:25 | PC.NURSE ---
arrived to room by stretcher from ED
--- NOTE | 2022-08-28 19:34 | PC.WOUNDNOTE ---
stage 3 coccyx
[2022-08-28 20:31] LABS: POC Glucose,Bedside 103 (70-110)
[2022-08-29] VITALS: BP 102/76; PULSE 77; RESP 18; TEMP 36.7; O2SAT 95
[2022-08-29 04:00] VITALS: BP 107/78; PULSE 90; RESP 18; TEMP 36.5; O2SAT 94; BMI 51.2
[2022-08-29 05:35] LABS: POC Glucose,Bedside 139 (70-110)
--- NOTE | 2022-08-29 05:56 | PC.NURSE ---
Pt. is aox4 and requites help with turning. He had several spells of diarrhea and was assisted with a bedpan. No other changes noted.
[2022-08-29 06:44] LABS: MANUAL DIFFERENTIAL MANUAL DIFFERENTIAL (MANUAL DIFF)
[2022-08-29 06:48] LABS: Basophils % 0.5 % (0.1-2.0); Eosinophils # 0.3 K/mm3 (0.0-0.4); Eosinophils % 5.2 % (0.1-12.0); Hematocrit 29.5 % (42.0-52.0); Hemoglobin 9.1 g/dL (14.1-18.0); Lymphocytes # 0.5 K/mm3 (0.7-4.5); Lymphocytes % 9.7 % (10-50); Mean Corpuscular HGB Conc 30.7 g/dL (31.8-35.4); Mean Corpuscular Hemoglobin 30.3 pg (27.0-31.2); Mean Corpuscular Volume 98.7 fl (80-94); Mean Platelet Volume 9.4 fl (7.4-10.4); Monocytes # 0.5 K/mm3 (0.1-1.0); Monocytes % 8.5 % (1.7-9.3); Neutrophils # 4.2 K/mm3 (1.8-7.8); Neutrophils % 76.1 % (37.0-80.0); Platelet Count 238 K/mm3 (142-424); Red Blood Count 2.99 M/mm3 (4.60-6.20); Red Cell Distribution Width 18.8 % (11.5-17.5); White Blood Count 5.6 K/mm3 (4.8-10.8)
[2022-08-29 07:05] LABS: Chloride 113 mmol/L (98-107)
[2022-08-29 07:06] LABS: Potassium 4.9 mmoL/L (3.5-5.1); Sodium 140 mmol/L (136-145)
[2022-08-29 07:08] LABS: Alanine Aminotransferase 28 U/L (12-78); Alkaline Phosphatase 221 U/L (38-126); Anion Gap 5.9 mEq/L (5-15); Aspartate Amino Transferase 32 U/L (17-59); Bilirubin,Total 0.2 mg/dl (0.2-1.3); Blood Urea Nitrogen 71 mg/dl (9-20); Carbon Dioxide 26 mmol/L (22.0-30.0); Creatinine Clearance Estimated 52 mL/min (50-200); Estimated Glomerular Filt Rate 41 ml/min (>60); GFR (African American) 50 ML/MIN (>60)
[2022-08-29 07:09] LABS: Albumin Level 2.9 g/dl (3.5-5.0); Albumin/Globulin Ratio 0.9 (1.1-1.8); Calcium 7.7 mg/dl (8.4-10.2); Globulin 3.1 g/dL (1.3-3.2); Glucose 141 mg/dl (74-100)
[2022-08-29 07:30] LABS: Anisocytosis 1+; Hypochromasia 1+; Lymphocytes % 5 % (10-50); Monocytes % 6 % (2-9); Neutrophils % 89 % (42-76); Ovalocytes 1+; Platelet Estimate Normal; Total Cells Counted 100
[2022-08-29 08:00] VITALS: BP 146/74; PULSE 105; RESP 17; TEMP 36.4; O2SAT 95
--- NOTE | 2022-08-29 08:20 | EXP.PN ---
Subjective *Date: 08/29/22 *Time: 09:14 Interval history: Patient states he did sleep some during the night. He ate poorly for breakfast. He needs assistance with turning in the bed. He continues to have discomfort in the groin area. Patient states he had diarrhea during the night but now feels constipated. Request a suppository. He has a stage III coccyx wound. See picture. CBC continues to show anemia. Renal function has actually improved. He has shown a good response to IV Lasix with excellent urinary output and decrease in weight. Exam Data for Last 24 hours Vital signs and Labs for Last 24 Hours: Temp Pulse Resp BP Pulse Ox 97.7 F 90 18 107/78 L 94 L 08/29/22 04:00 08/29/22 04:00 08/29/22 04:00 08/29/22 04:00 08/29/22 04:00 Laboratory Results - last 24 hr 08/28/22 11:10: Urine Color Yellow, Urine Appearance Clear, Urine pH 5.5, Ur Specific Jones 1.020, Urine Protein Negative, Urine Glucose (UA) Negative, Urine Ketones Negative, Urine Blood Negative, Urine Nitrate Negative, Urine Bilirubin Negative, Urine Urobilinogen 0.2, Ur Leukocyte Esterase 1+ A, Urine RBC None, Urine WBC 3-5, Ur Squamous Epith Cells Occasional, Urine Bacteria None 08/28/22 11:10: WBC 5.1, RBC 3.12 L, Hgb 9.6 L, Hct 30.7 L, MCV 98.2 H, MCH 30.8, MCHC 31.3 L, RDW 18.7 H, Plt Count 272, MPV 9.1, Neut % (Auto) 75.4, Lymph % (Auto) 9.5 L, [place] % (Auto) 7.6, Eos % (Auto) 6.8, Baso % (Auto) 0.7, Neut # (Auto) 3.9, Lymph # (Auto) 0.5 L, [place] # (Auto) 0.4, Eos # (Auto) 0.4, Baso # (Auto) 0.0 08/28/22 11:10: Sodium 141, Potassium 4.6, Chloride 113 H, Carbon Dioxide 25, Anion Gap 7.6, BUN 77 H, Creatinine 2.20 H, Estimated Creat Clear 41, Estimated GFR 30 L, Est GFR ( Amer) 37 L, Glucose 90, Calcium 7.4 L, Total Bilirubin 0.1 L, AST 32, ALT 30, Alkaline Phosphatase 250 H, Total Protein 6.3, Albumin 3.0 L, Globulin 3.3 H, Albumin/Globulin Ratio 0.9 L 08/28/22 11:10: NT-Pro-B Natriuret Pep 3810 H 08/28/22 11:10: Troponin I < 0.01 08/28/22 14:03: Troponin I < 0.01 08/28/22 16:50: SARS-CoV-2 (PCR) Not detected, Influenza A Untype (PCR) Not detected, Influenza Type B (PCR) Not detected 08/28/22 20:24: POC Glucose 103 08/29/22 05:29: POC Glucose 139 H 08/29/22 06:35: WBC 5.6, RBC 2.99 L, Hgb 9.1 L, Hct 29.5 L, MCV 98.7 H, MCH 30.3, MCHC 30.7 L, RDW 18.8 H, Plt Count 238, MPV 9.4, Neut % (Auto) 76.1, Lymph % (Auto) 9.7 L, [place] % (Auto) 8.5, Eos % (Auto) 5.2, Baso % (Auto) 0.5, Neut # (Auto) 4.2, Lymph # (Auto) 0.5 L, [place] # (Auto) 0.5, Eos # (Auto) 0.3, Baso # (Auto) 0.0, Total Counted 100, Neutrophils % (Manual) 89 H, Lymphocytes % (Manual) 5 L, Monocytes % (Manual) 6, Platelet Estimate Normal, Hypochromasia 1+, Anisocytosis 1+, Ovalocytes 1+ 08/29/22 06:35: Sodium 140, Potassium 4.9, Chloride 113 H, Carbon Dioxide 26, Anion Gap 5.9, BUN 71 H, Creatinine 1.70 H D, Estimated Creat Clear 52, Estimated GFR 41 L, Est GFR ( Amer) 50 L D, Glucose 141 H D, Calcium 7.7 L, Total Bilirubin 0.2, AST 32, ALT 28, Alkaline Phosphatase 221 H, Total Protein 6.0 L, Albumin 2.9 L, Globulin 3.1, Albumin/Globulin Ratio 0.9 L I & O for Last 24 hours: Intake & Output 08/26/22 08/27/22 08/28/22 08/29/22 11:59 11:59 11:59 11:59 Intake Total 360 / 360 Output Total 3500 / 3500 Balance -3140 / -3140 Weight 350 lb 407 lb 6.628 oz Constitutional Constitutional: no acute distress *Routine Respiratory Exam Respiratory: Present CTA bilaterally (Anteriorly and posteriorly) *Routine Cardiovascular Exam Cardiovascular: Present RRR *Routine Abdominal Exam Abdominal: Present normoactive bowel sounds and obese (Softer this AM.) *Routine Exam Penile: Present swelling; Absent erythema Testicular: bilateral: swelling Comments: Carter catheter to bed side drainage draining clear yellow urine. *Routine Extremities Exam Extremities: Present edema *Routine Skin Exam Skin: Present wounds (Stage III coccyx wound. Assessed this AM. 2 to 3 cm in width and with depth. Bl
[2022-08-29 08:49] VITALS: BMI 51.0
--- NOTE | 2022-08-29 09:30 | HMH.PHAINT1 ---
Pharmacy Intervention Comments: Medication reconciliation completed using external fill history and list from PCP office
--- NOTE | 2022-08-29 09:35 | SW/DCPLANNER ---
Addendum entered by Aminah Perez 08/30/22 11:17: Patient has been approved via insurance for admission at [facility] today. Patient/family, nursing staff and MD have been made aware. Per Quintin bolton/ [facility] patient does NOT need an additional COVID swab prior to discharge. Addendum entered by Aminah Perez 08/30/22 07:23: [facility] stated they are able to accept this patient and precert was started later yesterday evening. I will continue to follow up with MD, patient/family and [facility]. Addendum entered by Aminah Perez 08/29/22 13:41: Patient information will also be faxed to the following facilities: [facility], [facility], [facility] and [facility]. Patient and his concurred with this plan. Original Note: Patient/family stated they have been to [facility] in the past and would prefer to return once medically stable for discharge. Family stated they are open to any facility aside from [facility]. PT/OT has been ordered for evaluation this AM. I will fax patient information to [facility] [place] this AM. Discharge date is unknown at this time.
--- NOTE | 2022-08-29 09:47 | HMH.OTEV ---
OT Inpatient Evaluation Rehab OT IP Evaluation Start: 08/29/22 08:27 Freq: ONCE Status: Active Protocol: Document 08/29/22 09:32 CHERIE (Rec: 08/29/22 09:47 CHERIE [id number]) Rehab OT IP Assessment Subjective History Mr. Worthy is a 61-year-old male patient with a complicated medical history which includes type 2 diabetes mellitus, hypertension, asthma, arthritis, metastatic follicular thyroid carcinoma, DVT/pulmonary emboli.? ASCVD status post coronary stent, peptic ulcer disease, and bilateral below the knee amputations who presented to [facility] via EMS after experiencing an increase in swelling and shortness of breath. [facility] visited him today and felt he should be evaluated in the emergency room. He was brought to ER for evaluation via EMS. states she has had a difficult time in caring for him. He has not been out of bed for about a month because he has been unable to put his prosthesises on. Therefore he has also been unable to have office visits for follow- up. He has some nausea but has been able to eat and drink . He has had no diarrhea. In the emergency room patient reported having burning with urination and difficulty in initiating stream. reported only 2 ounces of urinary output today with the increase in the swelling. Patient does deny chest pain and has had no fever. He denies cough and any upper respiratory symptoms. With evaluation in the emergency room he was given 80 mg of Lasix. He was afebrile O2
--- NOTE | 2022-08-29 09:48 | DIET.NUTRFU ---
RD consulted for wound, He is noted to have a pressure wound to sacral. He is dependent on staff to turn him. Was at home with , but now looking for placement she is unable to care for him. Interviewed patient and discussed importance of protein, he consumed 50% of eggs today. He was also agreeable to prostat [facility] BID to provide additional 34gm protein along with vitamin C and zinc to add in healing. Suggested to mix with juice to help with compliance. He has hx of controlled DM with HgbA1c of 5.6%, diet was changed to low sodium, diabetic diet. He has received lasix and had good urine output yesterday of 2300ml. Will receive another dose of IV lasix today. Labs reviewed BUN 71/1.7H Cr-improved already from 77/2.2. Denies any GI distress. Will continue to monitor
--- NOTE | 2022-08-29 10:35 | HMH.PTWOUND ---
Rehab Inpt Wound Evaluation Rehab IP Wound Evaluation Start: 08/28/22 20:20 Freq: ONCE Status: Active Protocol: Document 08/29/22 10:18 PHOCARLIE (Rec: 08/29/22 10:35 PHORNE [id number]) Rehab PT Wound Assessment Subjective Subjective 61 yowm adm to [facility] with UTI, SUGEY, Sacral pressure injury pre-existing. He reports he has been feeling very porly, I think my cancer has just gotten me down. He has multiple co-morbid conditions including B LE BKA, thyroid cancer with mets to bone, metastatic lung cancer. He reports he has been unable to wear his prosthetics and bed bound x ~ 1 mo. Currently showing severe scrotal edema as well with weeping of the skin. Wound Sacrum Wound Type Pressure Ulcer Is This a Chronic Wound Yes Wound Staging Stage III Query Text:Stage I - Unbroken, red skin, no blanching. Stage II - Skin broken, superficial skin loss involving epidermis alone or also dermis. Partial loss of skin layers. Stage III - Pressure area involves epidermis, dermis and subcutaneous tissue, full thickness skin loss. Stage IV - Pressure area involves epidermis, subcutaneous tissue, bone and other supportive tissue. Full thickness skin loss with extensive destruction of underlying tissue and structures. Wound Length (cm) 2.4 Wound Width (cm) 1.6 Wound Depth (cm) 2.0 Wound Bed Appearance Beefy Red Percentage Granulated (%) 100 Wound Margins Description Well Defined Surrounding Tissue Appearance [place] Wound Drainage Description Sanguineous Drainage Amount Small Drainage Odor No Odor Packing Type Alginate Primary Dressing Composite Wound Debridement Amount of Tissue None Removed Dressing Change Patient Tolerance Tolerated Well Plan/Recommendation Comment Wound dressing as above may be changed by nsg as necessary every 3-5 days depending on drainage amt. No current sharp , excisional debridement
--- NOTE | 2022-08-29 10:40 | HMH.PTEV ---
Physical Therapy Evaluation Rehab PT IP Evaluation Start: 08/29/22 08:27 Freq: ONCE Status: Active Protocol: Document 08/29/22 10:35 AAYUSH (Rec: 08/29/22 10:39 PHOCARLIE [id number]) Subjective/History History History 61 yowm adm to [facility] with UTI, SUGEY, Sacral pressure injury pre-existing. He reports he has been feeling very porly, I think my cancer has just gotten me down. He has multiple co-morbid conditions including B LE BKA, thyroid cancer with mets to bone, metastatic lung cancer. He reports he has been unable to wear his prosthetics and bed bound x ~ 1 mo. Subjective Subjective Pt reports feeling lethargic and generally unwell over the past 1-2 mos. Increased edema and wt gain likely resulting in his inability to don his prosthetics. Difficulty rolling toward R side due to L SHLD pain and weakness. Rehab PT IP Eval Objective Appearance Patient Behavior Appropriate Patient Orientation Person,Place,Time Difficulty following instructions none Speech Pattern Clear Ambulation Patient Able to Ambulate No Balance Ability to Arise Unable Transfers Bed Transfer Ability Maximum x 1 (75% assist) Chair Transfer Ability Total/Dependent (100%) Rehab PT IP prob,goals,plan Problems Date of Evaluation: 08/29/22 PT IP Problems Bed Mobility,Transfers Rehab Potential Rehab Potential Fair Plan PT Intervention Plan Bed Mobility,Transfers, Therapeutic Exercise PT Plan Frequency Daily Duration LOS Discharge Goals Bed Transfer Ability Moderate x 2 (50% assist) Discharge Plan PT Discharge Plan Pt is currently most appropriate for rehab placement once medically stable for d/c. If he returns home he will be at significant risk of worsening, wounds, falls, injury, or . G -code Required No Eval Complexity Eval Charge Codes 41613 - Moderate Complexity
[2022-08-29 11:27] LABS: POC Glucose,Bedside 169 (70-110)
[2022-08-29 12:00] VITALS: BP 129/70; PULSE 103; RESP 17; TEMP 36.6; O2SAT 99
[2022-08-29 16:30] LABS: POC Glucose,Bedside 155 (70-110)
--- NOTE | 2022-08-29 17:15 | PC.NURSE ---
Pt alert and oriented. VSS. Percocet for chronic bone pain. Carter patent with good output. Large firm bowel movement. Wound care consult completed with stage III sacral ulcer packed with Maxorb and covered with silicone foam dressing. Pt's would like medical information sent to his cancer doctor. Information written on report sheet
--- NOTE | 2022-08-29 18:59 | CA_ITS ---
APPROVED REPORT EXAM: Comprehensive 2D, Doppler, and color-flow Echocardiogram Strategic Accounts Manager: IRINA Antonio, RVS Ht: 5 ft 2 in Wt: 414lbs BSA: 2.60 BP: 112/72 mmHg Rhythm: Arrythmia Indications: CHF, SOB, Morbid obesity, CAD stents, R BKA, Cardiac arrythmia, Hx-Covid, Asthma Echo Enhancing Agent Comments: Extremely limited exam due to extreme patient factors and lung impedence 2D Dimensions IVSd 1.16 cm LVEF (Visual) 60.60 % PWd 1.21 cm LVDd 4.82 cm LVDs 3.26 cm Aortic Root 3.23 cm Left Atrium 5.95 cm LVOT 2.07 cm (M/F) 1.5-2.5 M-Mode Dimensions LA Diam 5.38 cm (1.9-4.0) LVDd 5.31 cm (3.5-5.7) Ao Diam 3.67 cm (2.0-3.7) EPSs 1.73 cm EDV (Teich) 135.90 mL Aortic Valve AO Peak GR. 7.90 mmHg Mitral Valve MV PHT 60.00 ms Pulmonary Valve PV Peak Velocity 81.00 (50-150 cm/s) Tricuspid Valve TR P. Velocity 447.00 cm/s RAP Estimate 10.00 mmHg RVSP 89.90 mmHg Left Ventricle Technically extremely difficult study because of the patient factors and poor acoustic windows. Left atrium is mildly enlarged, left ventricle is normal size mild concentric left ventricular hypertrophy, estimated ejection fraction 55% with no obvious regional wall motion abnormality in the visualized segments. Diastolic parameters are inconclusive. Right Ventricle Right atrium and right ventricle moderately enlarged, contractility of the right ventricle is mildly reduced. Aortic Valve Aortic valve is thickened and calcified without Doppler evidence of aortic stenosis or aortic insufficiency. Mitral Valve Mitral valve has dense mitral annular calcification, which extends in both anterior posterior mitral leaflet, there is mitral stenosis present which is difficult to quantify in the study. There is mild mitral regurgitation. Tricuspid Valve Tricuspid valve leaflets are minimally thickened, there is mild tricuspid regurgitation, calculated right ventricular systolic pressure is 89 mmHg. Pulmonic Valve Pulmonic valve is not well visualized Great Vessels Aortic root is normal size. Inferior vena cava is not visualized. Pericardium No significant pericardial effusion noted. Conclusion 1. Technically extremely difficult study because of the patient factors and poor acoustic windows. Biatrial enlargement, normal left ventricular size, mild concentric left ventricular hypertrophy, estimated ejection fraction approximately 55% with no obvious regional wall motion abnormality in the visualized segment, diastolic parameters are inconclusive. 2. Moderately enlarged right ventricle with mild reduced contractility. 3. Thickened and calcified aortic valve without aortic stenosis aortic insufficiency. 4. Thickened and calcified mitral valve with mitral stenosis degree of stenosis cannot be calculated from the study. There is mild mitral regurgitation. 5. Mild tricuspid regurgitation, calculated right ventricular systolic pressure is 89 mmHg. 6. No significant pericardial effusion noted. 7. Inferior vena cava is not visualized. Electronically signed by : Vito Patino MD 08/29/2022 19:05:38
[2022-08-29 19:41] VITALS: BP 125/72; PULSE 76; RESP 18; TEMP 36.7; O2SAT 98
[2022-08-29 20:00] VITALS: O2SAT 98
[2022-08-29 21:48] LABS: POC Glucose,Bedside 118 (70-110)
[2022-08-30 03:51] VITALS: BP 123/76; PULSE 91; RESP 18; TEMP 36.8; O2SAT 93
[2022-08-30 04:00] VITALS: BMI 49.8
--- NOTE | 2022-08-30 04:15 | PC.NURSE ---
pt is alert and oriented x4, vss, pt bed bound and encouraged to turn q2 hours, pt will turn from back to right side, pt has weakness on left side r/t surgical history to left arm, f/c to bsd with clear pale urine noted, pt w/ scrotal edema, stage 3 wound to coccyx with dressing in place per PT, pt complains of pain and medicated x2 as prescribed, bilateral BKA, no acute distress, no other concerns at this time.
[2022-08-30 06:49] LABS: Basophils % 0.9 % (0.1-2.0); Eosinophils # 0.4 K/mm3 (0.0-0.4); Eosinophils % 8.3 % (0.1-12.0); Hematocrit 30.4 % (42.0-52.0); Hemoglobin 9.3 g/dL (14.1-18.0); Lymphocytes # 0.7 K/mm3 (0.7-4.5); Mean Corpuscular HGB Conc 30.6 g/dL (31.8-35.4); Mean Corpuscular Hemoglobin 30.3 pg (27.0-31.2); Mean Corpuscular Volume 99.3 fl (80-94); Mean Platelet Volume 8.6 fl (7.4-10.4); Monocytes # 0.5 K/mm3 (0.1-1.0); Monocytes % 10.9 % (1.7-9.3); Neutrophils # 2.8 K/mm3 (1.8-7.8); Platelet Count 248 K/mm3 (142-424); Red Blood Count 3.06 M/mm3 (4.60-6.20); Red Cell Distribution Width 18.6 % (11.5-17.5); White Blood Count 4.3 K/mm3 (4.8-10.8)
[2022-08-30 06:56] LABS: Anion Gap 5.7 mEq/L (5-15); Blood Urea Nitrogen 67 mg/dl (9-20); Calcium 8.2 mg/dl (8.4-10.2); Carbon Dioxide 29 mmol/L (22.0-30.0); Chloride 109 mmol/L (98-107); Creatinine Clearance Estimated 59 mL/min (50-200); Estimated Glomerular Filt Rate 47 ml/min (>60); GFR (African American) 57 ML/MIN (>60); Glucose 125 mg/dl (74-100); Potassium 4.7 mmoL/L (3.5-5.1); Sodium 139 mmol/L (136-145)
[2022-08-30 07:03] LABS: POC Glucose,Bedside 130 (70-110)
[2022-08-30 07:18] VITALS: BP 164/78; PULSE 98; RESP 19; TEMP 36.8; O2SAT 94
--- NOTE | 2022-08-30 07:46 | EXP.PN ---
Subjective *Date: 08/30/22 *Time: 08:25 Interval history: Patient did not sleep last night. He usually wears BiPAP at night. He is sleepy this morning. He is eating as usual. He does describe some nausea and request Zofran. His bowels did move yesterday. He denies chest pain and shortness of breath. He does have back pain. PT evaluation for rehab and for wound assessment noted. See wound picture. Laboratory data reveals improving renal function. He has diuresed well with the twice daily Lasix. Weight has also decreased. Echocardiogram shows the following.: 08/27/2022 Conclusion 1.? Technically extremely difficult study because of the patient factors and poor acoustic windows.? Biatrial enlargement, normal left ventricular size, mild concentric left ventricular hypertrophy, estimated ejection fraction approximately 55% with no obvious regional wall motion abnormality in the visualized segment, diastolic parameters are inconclusive. 2.? Moderately enlarged right ventricle with mild reduced contractility. 3.? Thickened and calcified aortic valve without aortic stenosis aortic insufficiency. 4.? Thickened and calcified mitral valve with mitral stenosis degree of stenosis cannot be calculated from the study.? There is mild mitral regurgitation. 5.? Mild tricuspid regurgitation, calculated right ventricular systolic pressure is 89 mmHg. 6.? No significant pericardial effusion noted. 7.? Inferior vena cava is not visualized. Exam Data for Last 24 hours Vital signs and Labs for Last 24 Hours: Temp Pulse Resp BP Pulse Ox 98.3 F 98 H 19 164/78 H 94 L 08/30/22 07:18 08/30/22 07:18 08/30/22 07:18 08/30/22 07:18 08/30/22 07:18 Laboratory Results - last 24 hr 08/29/22 11:18: POC Glucose 169 H 08/29/22 16:21: POC Glucose 155 H 08/29/22 20:30: POC Glucose 118 H 08/30/22 06:05: WBC 4.3 L, RBC 3.06 L, Hgb 9.3 L, Hct 30.4 L, MCV 99.3 H, MCH 30.3, MCHC 30.6 L, RDW 18.6 H, Plt Count 248, MPV 8.6, Neut % (Auto) 64.0, Lymph % (Auto) 16.0, [place] % (Auto) 10.9 H, Eos % (Auto) 8.3, Baso % (Auto) 0.9, Neut # (Auto) 2.8, Lymph # (Auto) 0.7, [place] # (Auto) 0.5, Eos # (Auto) 0.4, Baso # (Auto) 0.0 08/30/22 06:05: Sodium 139, Potassium 4.7, Chloride 109 H, Carbon Dioxide 29, Anion Gap 5.7, BUN 67 H, Creatinine 1.50 H, Estimated Creat Clear 59, Estimated GFR 47 L, Est GFR ( Amer) 57 L, Glucose 125 H, Calcium 8.2 L 08/30/22 06:37: POC Glucose 130 H I & O for Last 24 hours: Intake & Output 08/27/22 08/28/22 08/29/22 08/30/22 11:59 11:59 11:59 11:59 Intake Total 600 / 600 1280 / 1280 Output Total 4090 / 4090 3700 / 3700 Balance -3490 / -3490 -2420 / -2420 Weight 350 lb 405 lb 10.409 oz 396 lb 6.258 oz Microbiology Reports for the Last 24 Hours: Microbiology 08/28/22 11:10 Urine,Clean Catch Urine Culture - Preliminary NO GROWTH AFTER 24 HOURS Constitutional Constitutional: no acute distress *Routine Respiratory Exam Respiratory: Present CTA bilaterally Comments: Congested cough *Routine Cardiovascular Exam Cardiovascular: Present irregular rhythm *Routine Abdominal Exam Abdominal: Present normoactive bowel sounds and obese; Absent tenderness *Routine Exam Patient deferred: penile exam, testicular exam, scrotal exam, groin exam and perineal exam Penile: Present swelling; Absent erythema Testicular: bilateral: swelling Comments: Carter catheter to bedside drainage: With good diuresis and weight loss feel that edema in this area is dependent *Routine Extremities Exam Extremities: Present edema (Bilateral thighs) *Routine Neurological Exam Neurological: Present alert and oriented X3 Assessment and Plan *Assessment and plan (1) Congestive heart failure: Status: Ruled-out Category: Medical Code(s): I50.9 - Heart failure, unspecified (2) Edema: Status: Acute Category: Medical Code(s): R60.9 - Edema, unspecified (3) CKD (chronic kidney
[2022-08-30 08:00] VITALS: RESP 20
--- NOTE | 2022-08-30 08:40 | EXP.DC.SUM ---
General Admission date:: 08/28/22 Discharge date: 08/30/22 HPI HPI HPI: Mr. Worthy is a 61-year-old male patient with a complicated medical history which includes type 2 diabetes mellitus, hypertension, asthma, arthritis, metastatic follicular thyroid carcinoma, DVT/pulmonary emboli.? ASCVD status post coronary stent, peptic ulcer disease, and bilateral below the knee amputations who presented to [facility] via EMS after experiencing an increase in swelling and shortness of breath.? Home health visited him today and felt he should be evaluated in the emergency room.? He was brought to ER for evaluation via EMS. states she has had a difficult time in caring for him.? He has not been out of bed? for about a month because he has been unable to put his prosthesises on.? Therefore he has also been unable to have office visits for follow-up.? He has some nausea but has been able to eat and drink.? He has had no diarrhea. In the emergency room patient reported having burning with urination and difficulty in initiating stream.? reported only 2 ounces of urinary output today with the increase in the swelling.? Patient does deny chest pain and has had no fever.? He denies cough and any upper respiratory symptoms.? With evaluation in the emergency room he was given 80 mg of Lasix.? He was afebrile. O2 sats were satisfactory at 95-99% on room air.? He was afebrile.? WBCs were 5100 with a hemoglobin of 9.6 and hematocrit of 30.7.? BNP was 3810.Chest x-ray revealed heart to be enlarged with a prominent mediastinum likely stable bibasilar opacities and bilateral pleural effusions. He will be admitted for further evaluation and treatment with diuresis.? He will need a Carter catheter and wound management. Hospital Course Hospital Course Hospital Course: Diuretics were initiated in the emergency room and continued throughout his stay. He diuresed greater than 4 L/day with noted weight loss. He continued with scrotal and thigh edema which was felt to be dependent. He was evaluated by PT and noted that he was unable to turn independently in the bed. Also coccyx wound was assessed and felt to be a stage III and clean wound. Recommended dressing changes every 2 to 3 days and as needed. He was felt to be a candidate for ongoing rehab for muscle strengthening especially of the upper body. Renal function did improve daily and hemoglobin remained stable. Urine cultures have been negative thus far. He continues with a Carter catheter with recommendation to continue for wound healing, accurate I&O, and perineal edema. Patient is noted to be able to feed himself independently but needs help with all other ADLs. He will need BiPAP for sleeping at night. He will need repeat labs in about a week. He will need continued diuresis. Seen medication reconciliation sheet. Diet should be diabetic/Cardiac and no added salt. On 08/30/2022 patient remained stable. [facility] was [facility]. Exam Data for Last 24 hours Vital signs and Labs for Last 24 Hours: Temp Pulse Resp BP Pulse Ox 98.3 F 98 H 19 164/78 H 94 L 08/30/22 07:18 08/30/22 07:18 08/30/22 07:18 08/30/22 07:18 08/30/22 07:18 Laboratory Results - last 24 hr 08/29/22 11:18: POC Glucose 169 H 08/29/22 16:21: POC Glucose 155 H 08/29/22 20:30: POC Glucose 118 H 08/30/22 06:05: WBC 4.3 L, RBC 3.06 L, Hgb 9.3 L, Hct 30.4 L, MCV 99.3 H, MCH 30.3, MCHC 30.6 L, RDW 18.6 H, Plt Count 248, MPV 8.6, Neut % (Auto) 64.0, Lymph % (Auto) 16.0, [place] % (Auto) 10.9 H, Eos % (Auto) 8.3, Baso % (Auto) 0.9, Neut # (Auto) 2.8, Lymph # (Auto) 0.7, [place] # (Auto) 0.5, Eos # (Auto) 0.4, Baso # (Auto) 0.0 08/30/22 06:05: Sodium 139, Potassium 4.7, Chloride 109 H, Carbon Dioxide 29, Anion Gap 5.7, BUN 67 H, Creatinine 1.50 H, Estimated Creat Clear 59, Estimated GFR 47 L, Est GFR ( Amer) 57 L, Glucose 125 H, Calcium 8.2 L 08/30/22 06:37: POC Glucose 130 H
--- NOTE | 2022-08-30 10:38 | PC.NURSE ---
Aminah Perez at bedside discussing pt. transfer to [facility] this afternoon. Pt. and spouse agree. No questions or concerns at this time. Will continue to monitor.
[2022-08-30 11:39] LABS: POC Glucose,Bedside 149 (70-110)
--- NOTE | 2022-08-30 13:29 | PC.NURSE ---
Phone call to Dr. Maynard regarding new finding of bloody urine. No new orders at this time. Will leave Carter catheter in place when d/c to [facility].
--- NOTE | 2022-08-30 14:02 | PC.NURSE ---
[facility] sales donor recruitment representative at bedside. Report called to RN at [facility].
--- NOTE | 2022-08-31 13:36 | CARE MANAGER ---
Spoke with Reed at [facility] in [place]. He states patient is doing well. Denies questions KELLY Hapr
== END 2022-08-30 15:03 ==
LOC: ER 12:45 → 2ND 16:57
PROVIDERS: Nurse Practitioner Family; Admitting Provider Family Medicine; Emergency Provider Emergency Medicine; PCP Family Medicine; Visit Provider Family Medicine
DX: R60.9 Edema, unspecified (principal); N18.9 Chronic kidney disease, unspecified; J44.9 Chronic obstructive pulmonary disease, unspecified; I25.10 Atherosclerotic heart disease of native coronary artery without angina pectoris; E11.9 Type 2 diabetes mellitus without complications; M47.816 Spondylosis without myelopathy or radiculopathy, lumbar region; C78.01 Secondary malignant neoplasm of right lung; C73 Malignant neoplasm of thyroid gland; C79.51 Secondary malignant neoplasm of bone; Z79.01 Long term (current) use of anticoagulants; Z79.4 Long term (current) use of insulin; Z79.899 Other long term (current) drug therapy; I13.0 Hypertensive heart and chronic kidney disease with heart failure and stage 1 through stage 4 chronic kidney disease, or unspecified chronic kidney disease; D50.0 Iron deficiency anemia secondary to blood loss (chronic); E66.01 Morbid (severe) obesity due to excess calories; I50.9 Heart failure, unspecified; E11.22 Type 2 diabetes mellitus with diabetic chronic kidney disease; N17.9 Acute kidney failure, unspecified; L89.153 Pressure ulcer of sacral region, stage 3; E11.40 Type 2 diabetes mellitus with diabetic neuropathy, unspecified; Z68.43 Body mass index [BMI] 50.0-59.9, adult; Z20.822 Contact with and (suspected) exposure to COVID-19
CPT/HCPCS: G0378; 36415; 51702; 71045; 80048; 80053; 81001; 82962; 83880; 84484; 85007; 85014; 85018; 85025; 85048; 85049; 87086; 93005; 93306; 94640; 97110; 97162; 97165; 99285; C9803; U0003; U0005

== ENCOUNTER 2022-10-05 11:13 | Inpatient (IN) | payer MEDICARE, SELFPAY ==
[2022-10-05] VITALS (11 sets, daily range): BP systolic 76–145; BP diastolic 30–100; PULSE 60–78; RESP 14–20; TEMP 36.4–37.1; O2SAT 93–100; BMI 150.5; BMI 46.1
--- NOTE | 2022-10-05 11:30 | PC.NURSE ---
pt has redness and wound noted to coccyx, pt and states wound has been there and he receives home health.
--- NOTE | 2022-10-05 11:37 | HMH.EDGENADL ---
Discharge Plan Disposition Patient Disposition: Admitted As Inpatient Prescriptions Prescriptions: No Action cyclobenzaprine 5 mg tablet 5 mg PO BID lisinopril 40 mg tablet 40 mg PO DAILY levothyroxine 137 MCG tablet 274 mcg PO 0630 doxazosin 1 MG tablet 1 mg PO HS cabozantinib 60 MG tablet 60 mg PO 0630 pantoprazole 40 MG tablet,delayed release (DR/EC) 40 mg PO DAILY sennosides [senna] 8.6 mg Tablet 8.6 mg PO HS diphenoxylate-atropine 2.5-0.025 mg tablet 1 - 2 tab PO QID calcium carbonate [Tums Ultra] 400 mg calcium (1,000 mg) Tablet,Chewable 1,600 mg PO DAILY insulin aspart U-100 [Novolog U-100 Insulin aspart] 100 unit/mL solution 50 sliding scale dose SQ DAILY Rx Instructions: UP TO 50 UNITS PER SLIDING SCALE diphenhydramine HCl [Benadryl] 25 mg Capsule 50 mg PO HS PRN (Reason: allergies) Rx Instructions: 2 tabs po hs nystatin 100,000 unit/gram cream 1 applic TOPICAL BID fluticasone propionate 50 mcg/actuation [place],Suspension 1 spray INTRANASAL DAILY Rx Instructions: administer into each nostril albuterol sulfate 90 mcg/actuation Hfa Aerosol Inhaler 2 puff INHALATION Q6H PRN (Reason: breathing problems) furosemide [Lasix] 40 mg tablet 40 mg PO BID Qty: 60 0RF gabapentin 600 MG tablet 600 mg PO BID Qty: 60 0RF oxycodone-acetaminophen 1 EACH tablet 1 each PO Q4HP PRN (Reason: neoplasm related pain) Qty: 60 0RF acetaminophen 325 MG tablet 1,300 mg PO BID atorvastatin 20 MG tablet 20 mg PO HS trazodone 100 MG tablet 100 mg PO HS Levemir U-100 Insulin 100 UNIT/ML solution 40 unit SQ HS rivaroxaban 20 MG tablet 20 mg PO QPMWITHMEAL potassium chloride 10 mEq capsule, extended release 10 meq PO BID Rx Instructions: TAKE 1 CAPSULE TWICE DAILY magnesium oxide 400 mg magnesium capsule 800 mg PO BID amlodipine 2.5 mg tablet 2.5 mg PO HS nebivolol 20 mg tablet 20 mg PO HS ferrous sulfate 325 mg (65 mg iron) Tablet 650 mg PO TID Rx Instructions: one at lunch and two at bedtime Combivent Respimat 20-100 mcg/actuation Mist 1 puff INHALATION Q6 PRN (Reason: breathgin problems) Rx Instructions: and prn if needed Referrals Follow up/Referrals: Prem Pandya MD [Primary Care Provider] - See instructions Clinical Impressions Clinical Impression: SUGEY (acute kidney injury), Acute UTI Instructions Patient Instructions: DI for Urinary Tract Infection (UTI), DI for Urinary Tract Infection in Children Discharge ED Provider: Randell Oquendo General Adult HPI General Chief complaint: Urogenital-Male Stated complaint: Urinary Retention Time Seen by Provider: 10/05/22 11:37 Mode of Arrival: EMS Source of Information: Patient and EMS Limitations: Physical Limitations Description of Symptoms (Recalled from ER Triage Doc. by RN): per EMS report they were called to patients house by home health stating that pt was lethargic and weak. upon EMS arrival pt was alert and oriented. pt states he has not urinated since last night. History of Present Illness HPI narrative: 61-year-old well-known to this department and organization presents today with decreased urine output. States that he has just been unable to pee the last few days. He does state he has had some mild increase in lethargy and weakness but this is chronic. Also states he has had some left-sided flank pain which is little bit more than normal in the past. Says he had a abdominal wall abscess in the past that felt similar but has had no increasing redness or soft tissue deformities or abnormalities that has been noted. No history of any prostate problems he states. No blood in his urine recently. No fevers chills or other infectious symptoms. His only symptom is primarily decreased urine output. A Carter catheter was placed prior to my ev
[2022-10-05 11:39] LABS: Microscopic, Urine URINE MICROSCOPIC (MICROSCOPIC)
[2022-10-05 11:41] LABS: Appearance,Urine SL CLOUDY (Clear); Blood, Urine 1+ (Negative); Color,Urine YELLOW (Yellow); Glucose,Urine (UA) Negative (Negative); Ketones,Urine TRACE (Negative); Leukocyte Esterase,Urine 2+ (Negative); Nitrate,Urine Negative (Negative); Protein,Urine TRACE (Negative); Specific Gravity, Urine 1.025 (1.005-1.030); Urobilinogen,Urine 0.2 EU/dl (0.2)
--- NOTE | 2022-10-05 11:43 | CT_ITS ---
FINAL REPORT TECHNIQUE: Axial images through the abdomen and pelvis were performed without contrast. This study was performed with techniques to keep radiation doses as low as reasonably achievable, (ALARA). Individualized dose reduction techniques using automated exposure control or adjustment of mA and/or kV according to the patient's size were employed. CLINICAL HISTORY: Left flank pain FINDINGS: ABDOMEN: There are moderate bilateral pleural effusions. There is a pericardial effusion which layers to the depth of 2 cm. The liver parenchyma is homogeneous. The gallbladder is absent. The heart size is normal. The spleen and pancreas are normal. No adrenal mass is identified. The aorta is normal in caliber. There is no significant free fluid or adenopathy. There is no nephrolithiasis. There is no hydronephrosis. Streak artifact is seen from posterior fusion hardware bridging L4-5. There is moderate diffuse disc bulge at L3-4 with high-grade right neural foraminal narrowing. There is 20 degrees lumbar scoliosis convex to the left. PELVIS: The appendix is not identified. There is stranding of fat in the pelvis, slightly more eccentric to the left. Findings are best seen on images 91-99 of series 3. The urinary bladder is unremarkable. There is no significant free fluid or adenopathy. IMPRESSION: Moderate bilateral pleural effusions with pericardial effusion layering to the depth of 2 cm. Nonspecific stranding of fat in the pelvis. Diffuse disc bulge at L3-4 with high-grade right neural foraminal narrowing. Lumbar scoliosis. Reviewed, Interpreted and Dictated by Adrian Anna MD Transcribed by Lily Chauhan Authenticated and [facility]
[2022-10-05 11:44] LABS: Bilirubin,Urine Negative (Negative)
[2022-10-05 11:55] LABS: Basophils % 0.7 % (0.1-2.0); Eosinophils # 0.2 K/mm3 (0.0-0.4); Hematocrit 31.2 % (42.0-52.0); Lymphocytes # 0.6 K/mm3 (0.7-4.5); Lymphocytes % 10.8 % (10-50); Mean Corpuscular HGB Conc 28.8 g/dL (31.8-35.4); Mean Corpuscular Hemoglobin 28.9 pg (27.0-31.2); Mean Corpuscular Volume 100.5 fl (80-94); Mean Platelet Volume 8.8 fl (7.4-10.4); Monocytes # 0.5 K/mm3 (0.1-1.0); Neutrophils # 4.4 K/mm3 (1.8-7.8); Neutrophils % 76.4 % (37.0-80.0); Platelet Count 200 K/mm3 (142-424); Red Cell Distribution Width 18.3 % (11.5-17.5); White Blood Count 5.7 K/mm3 (4.8-10.8)
[2022-10-05 11:58] LABS: Bacteria,Urine 1+ /lpf
[2022-10-05 11:58] LABS: Chloride 94 mmol/L (98-107); Potassium 4.7 mmoL/L (3.5-5.1)
[2022-10-05 12:01] LABS: Alanine Aminotransferase 31 U/L (12-78); Albumin Level 2.8 g/dl (3.5-5.0); Alkaline Phosphatase 125 U/L (38-126); Aspartate Amino Transferase 25 U/L (17-59); Bilirubin,Total 0.3 mg/dl (0.2-1.3); Blood Urea Nitrogen 63 mg/dl (9-20); Carbon Dioxide 27 mmol/L (22.0-30.0); Creatinine Clearance Estimated 1 mL/min (50-200); Estimated Glomerular Filt Rate 12 ml/min (>60); GFR (African American) 14 ML/MIN (>60); Total Protein,Serum 5.6 g/dl (6.3-8.2)
[2022-10-05 12:02] LABS: Calcium 6.5 mg/dl (8.4-10.2); Globulin 2.8 g/dL (1.3-3.2); Glucose 117 mg/dl (74-100)
--- NOTE | 2022-10-05 12:37 | PC.NURSE ---
covid/flu swab sent to lab
--- NOTE | 2022-10-05 12:38 | PC.NURSE ---
Calling Dr. Pandya for possible admission
[2022-10-05 12:40] LABS: Coronavirus 19, PCR Not Detected (NotDetected); Influenza A, PCR Not Detected (NotDetected); Influenza B, PCR Not Detected (NotDetected)
--- NOTE | 2022-10-05 12:40 | PC.NURSE ---
CONSTANTINE MACHUCA speaking with Dr. Pandya at this time
--- NOTE | 2022-10-05 14:10 | PC.NURSE ---
report called to Litzy Mims RN. RN informed of pt's coccyx wound and pt's bp, that is aware.
[2022-10-05 14:58] LABS: Anion Gap 10.7 mEq/L (5-15); Sodium 127 mmol/L (136-145)
--- NOTE | 2022-10-05 14:58 | PC.NURSE ---
Pt arrived to the floor at this time
--- NOTE | 2022-10-05 16:27 | EXP.HP ---
History of Present Illness *Admission Date: 10/05/22 *Reason for visit:: weakness, nausea, decreased urine output *History of present illness: 61-year-old well-known to this department and organization presents today with decreased urine output.? States that he has just been unable to pee the last few days.? He does state he has had some mild increase in lethargy and weakness but this is chronic.? Also states he has had some left-sided flank pain which is little bit more than normal in the past.? Says he had an abdominal wall abscess in the past that felt similar but has had no increasing redness or soft tissue deformities or abnormalities that has been noted.? No history of any prostate problems he states.? No blood in his urine recently.? No fevers chills or other infectious symptoms.? His only symptom is primarily decreased urine output.? A Carter catheter was placed prior to my evaluation which had several 100 cc of very dark-colored urine. (above as per ER physican) [facility]. His states they wanted to switch him to long-term care and he did not want to stay, so he came home. She has had difficulty caring for him at home as he has been bed ridden and very weak. He has had home health. She states he did go to see his oncologist about a week ago and was told he had fluid around his lung and around his heart. He was sent to a snack foods mixer operator who apparently drained the fluid. After he got back home, he remained very weak and lethargic. He has had difficulty eating and drinking due to nausea and his states he has had very little urine output the past few days and his urine has been dark in color. She therefore brought him to the emergency room today where he was found to be in renal failure and have a urinary tract infection. [facility] Disclaimer: The information contained in this section may have been updated after the patient was seen, as this information can be updated by other users. Medical History Abscess Abscess of skin or subcutaneous tissue Acute pulmonary embolus Acute UTI Amputation of fifth toe of right foot Anemia Asthma Asthma Atypical angina Cellulitis Charcot foot due to diabetes mellitus Cholecystitis Chronic obstructive pulmonary disease Conjunctivitis, right eye Coronary artery disease COVID-19 Dehiscence of incision Diabetes 1.5, managed as type 1 Diabetic ulcer of right foot Diabetic ulcer of right midfoot associated with type 2 diabetes mellitus, with fat layer exposed Dizziness DVT (deep venous thrombosis) Dyspnea Enterococcus faecalis infection Ex-smoker Facial weakness Headache History of cancer chemotherapy History of cancer chemotherapy History of DVT (deep vein thrombosis) History of intestinal obstruction History of left below knee amputation History of left below knee amputation History of peptic ulcer History of peptic ulcer disease History of peptic ulcer disease History of pulmonary embolus (PE) Hypersomnolence Hypertension Hypoalbuminemia Hypocalcemia Hypomagnesemia Hypomagnesemia Involuntary movements Klebsiella infection Laceration of right ring finger 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 Lumbar radiculopathy Lumbar radiculopathy Malignant neoplasm metastatic to lung Nausea Nausea vomiting and diarrhea Near syncope Non-compliance Numbness in right leg Obesity Osteoarthritis of lumbar spine Osteomyelitis Osteomyelitis of fifth toe of right foot Osteomyelitis of right foot Other chronic osteomyelitis, right ankle and foot Pathological fracture of acetabulum Postoperative edema Prepyloric ulcer Prepyloric ulcer Pressure ulcer 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
--- NOTE | 2022-10-05 17:29 | PC.WOUNDNOTE ---
STAGE 4 PRESSURE ULCER PRESENT TO COCCYX. 3X3CM, 2CM DEEP
--- NOTE | 2022-10-05 17:37 | PC.NURSE ---
A&OX4. TOLERATING RA WELL. X2-3 ASSIST IN BED. F/C PRESENT DRAINING DARK YELLOW URINE. STAGE 4 PRESSURE SORE TO COCCYX, WOUND PICTURE NOTED. PT HAS HAD NO NEEDS OR C/O SINCE ARRIVAL TO FLOOR. HOME MEDS IN DRAWER. VSS.
--- NOTE | 2022-10-05 20:07 | PC.NURSE ---
SPOKE WITH MD TAVERAS ABOUT ANY NEW ORDERS THAT HE MAY LIKE TO BE STARTED ON THE PT. NNO AT THIS TIME, HOLDING HOME MEDICATIONS UNTIL TOMORROW.
[2022-10-06] VITALS (7 sets, daily range): BP systolic 72–109; BP diastolic 49–62; PULSE 64–79; RESP 16–20; TEMP 36.4–37; O2SAT 92–98; BMI 45.8
--- NOTE | 2022-10-06 00:58 | PC.NURSE ---
BPs CONTINUE TO RUN LOW. SAYS THIS IS NOT UNUSUAL. PATIENT DENIES SOA/PAIN/DISCOMFORT. BP VERY LOW 75/59. HR 70. WILL RELAY INFO TO DOCTOR DARCY.
--- NOTE | 2022-10-06 01:19 | PC.NURSE ---
ONE LITER NS INFUSING AT 250ML PER HR PER PUMP ORDERED BY DR TAVERASFOR LOW BP.
--- NOTE | 2022-10-06 05:28 | PC.NURSE ---
BPs REMAIN LOW. FAMILY MEMBER SAYS THIS IS PATIENT'S NORMAL. 1 LITER BOLUS NS RECEIVED. USED PERSONAL CPAP THROUGH OUT THE NIGHT. DENIES PAIN OR DISCOMFORT.
--- NOTE | 2022-10-06 08:21 | EXP.ACUTE.PN ---
Subjective *Date: 10/06/22 *Time: 09:06 Interval history: Patient states he feels a little better this am. He had cramps in his left arm last night, but after he finally fell asleep, he was able to sleep. Nausea has improved this am. He was able to eat for the first time in over a week. He does have some pain this am because he states he hasn't had any medication in the past few days. Medical Exam Vital signs and Labs for Last 24 Hours: Vital Signs Temp Pulse Pulse Resp BP BP Pulse Ox 10/06/22 07:28 98.6 F 69 20 92/58 L 98 10/06/22 04:00 97.5 F L 68 20 82/50 L 92 L 10/06/22 00:43 70 75/59 L 93 L 10/06/22 00:00 97.7 F 64 20 72/49 L 95 10/05/22 20:00 97 10/05/22 19:57 97.7 F 78 20 83/45 L 97 10/05/22 15:10 97.5 F L 71 18 103/50 L 100 10/05/22 14:53 98.8 F 69 18 103/50 L 10/05/22 14:12 70 16 92/51 L 96 10/05/22 13:53 78 18 105/53 L 96 10/05/22 13:00 75 94/30 L 94 L 10/05/22 12:34 74 76/32 L 94 L 10/05/22 12:01 70 82/41 L 93 L 10/05/22 11:48 60 14 85/43 L 95 10/05/22 11:14 97.5 F L 73 18 145/100 H 96 Intake and Output 10/05/22 10/06/22 10/06/22 19:59 03:59 11:59 Intake Total 0 / 680 320 / 680 360 / 680 Output Total 300 / 500 200 / 500 0 / 500 Balance -300 / 180 120 / 180 360 / 180 Intake: Intake, Oral Amount 0 / 680 320 / 680 360 / 680 Output: Output, Urine Amount 0 / 200 200 / 200 0 / 200 Output, Urine Amount (Catheter) 300 / 300 Carter 300 / 300 Other: Number of Unmeasured Voids 0 1 Weight 369 lb 5 oz 368 lb 10.265 oz Patient Weight 10/06/22 11:59 Weight 368 lb 10.265 oz Laboratory Results - last 24 hr 10/05/22 11:36: Urine Color Yellow, Urine Appearance Sl cloudy, Urine pH 5.0, Ur Specific Courtland 1.025, Urine Protein Trace, Urine Glucose (UA) Negative, Urine Ketones Trace, Urine Blood 1+, Urine Nitrate Negative, Urine Bilirubin Negative, Urine Urobilinogen 0.2, Ur Leukocyte Esterase 2+ A, Urine RBC 5-10, Urine WBC 10-20, Ur Squamous Epith Cells 3-5, Urine Bacteria 1+ 10/05/22 11:41: WBC 5.7, RBC 3.10 L, Hgb 9.0 L, Hct 31.2 L, MCV 100.5 H, MCH 28.9, MCHC 28.8 L, RDW 18.3 H, Plt Count 200, MPV 8.8, Neut % (Auto) 76.4, Lymph % (Auto) 10.8, Davidson % (Auto) 9.0, Eos % (Auto) 3.0, Baso % (Auto) 0.7, Neut # (Auto) 4.4, Lymph # (Auto) 0.6 L, Davidson # (Auto) 0.5, Eos # (Auto) 0.2, Baso # (Auto) 0.0 10/05/22 11:41: Sodium 127 L, Potassium 4.7, Chloride 94 L, Carbon Dioxide 27, Anion Gap 10.7, BUN 63 H, Creatinine 5.00 H, Estimated Creat Clear 1, Estimated GFR 12 L*, Est GFR ( Amer) 14 L*, Glucose 117 H, Calcium 6.5 L, Total Bilirubin 0.3, AST 25, ALT 31, Alkaline Phosphatase 125, Total Protein 5.6 L, Albumin 2.8 L, Globulin 2.8, Albumin/Globulin Ratio 1.0 L 10/05/22 12:37: SARS-CoV-2 (PCR) Not detected, Influenza A Untype (PCR) Not detected, Influenza Type B (PCR) Not detected I & O for Labs for Last 24 Hours: Intake & Output 10/03/22 10/04/22 10/05/22 10/06/22 11:59 11:59 11:59 11:59 Intake Total 680 / 680 Output Total 500 / 500 Balance 180 / 180 Weight 360 lb 368 lb 10.265 oz Constitutional: Present no acute distress Respiratory: Present CTA bilaterally Cardiac: Present Reg Rate and Rhythm GI: Present soft, tenderness (epigastric area) and normal bowel sounds; Absent distention Comment:: catheter has been removed Extremities: Present other (Bilateral lower leg amputations); Absent clubbing or cyanosis Skin: Present intact Neuro: Present alert, awake and oriented x 3 Assessment and Plan *Assessment and plan (1) SUGEY (acute kidney injury): Status: Acute Category: Medical Code(s): N17.9 - Acute kidney failure, unspecified (2) Acute UTI: Status: Acute Category: Medical Code(s): N39.0 - Urinary tract infection, site not specified (3) Pericardial effusion: Status: Acute Category: Medical Code(s):
[2022-10-06 08:53] LABS: Basophils % 0.9 % (0.1-2.0); Eosinophils # 0.2 K/mm3 (0.0-0.4); Eosinophils % 2.8 % (0.1-12.0); Hematocrit 34.6 % (42.0-52.0); Lymphocytes # 0.5 K/mm3 (0.7-4.5); Lymphocytes % 8.8 % (10-50); Mean Corpuscular HGB Conc 29.5 g/dL (31.8-35.4); Mean Corpuscular Hemoglobin 29.5 pg (27.0-31.2); Mean Corpuscular Volume 99.9 fl (80-94); Mean Platelet Volume 10.3 fl (7.4-10.4); Monocytes # 0.4 K/mm3 (0.1-1.0); Monocytes % 6.8 % (1.7-9.3); Neutrophils # 4.2 K/mm3 (1.8-7.8); Neutrophils % 80.6 % (37.0-80.0); Platelet Count 204 K/mm3 (142-424); Red Blood Count 3.46 M/mm3 (4.60-6.20); Red Cell Distribution Width 18.8 % (11.5-17.5); White Blood Count 5.2 K/mm3 (4.8-10.8)
[2022-10-06 08:54] LABS: Chloride 94 mmol/L (98-107); Sodium 130 mmol/L (136-145)
[2022-10-06 08:57] LABS: Alanine Aminotransferase 30 U/L (12-78); Alkaline Phosphatase 133 U/L (38-126); Aspartate Amino Transferase 23 U/L (17-59); Bilirubin,Total 0.2 mg/dl (0.2-1.3); Blood Urea Nitrogen 66 mg/dl (9-20); Creatinine Clearance Estimated 20 mL/min (50-200); Estimated Glomerular Filt Rate 13 ml/min (>60); GFR (African American) 16 ML/MIN (>60); Globulin 3.1 g/dL (1.3-3.2); Total Protein,Serum 6.1 g/dl (6.3-8.2)
[2022-10-06 08:58] LABS: Calcium 6.7 mg/dl (8.4-10.2); Carbon Dioxide 27 mmol/L (22.0-30.0); Glucose 113 mg/dl (74-100); Hemoglobin 10.3 g/dL (14.1-18.0)
--- NOTE | 2022-10-06 09:28 | HMH.PHAINT1 ---
Pharmacy Intervention Comments: home medication list verified using list from outpatient pharmacy, rx bottles and pt interview
[2022-10-06 12:49] LABS: POC Glucose,Bedside 101 (70-110)
--- NOTE | 2022-10-06 14:05 | HMH.PTEV ---
Physical Therapy Evaluation Rehab PT IP Evaluation Start: 10/06/22 11:07 Freq: ONCE Status: Active Protocol: Document 10/06/22 13:58 AAYUSH (Rec: 10/06/22 14:04 AAYUSH [id number]) Subjective/History History History 61 yowm adm to [facility] with UTI and SUGEY, has hx of cancer with multiple mets, B BKA, DM-II. He requires significant assist at home from his spouse at baseline and generally uses a w/c for all mobility. He reports he requires assitance with ADLs as well. He has sacral pressure ulcer that has been present for >1yr and was present prior to adm. Subjective Subjective Currently he reports feeling tired and dizzy, but agrees to sit at EOB. Rehab PT IP Eval Objective Appearance Patient Behavior Appropriate Patient Orientation Person,Place,Time Difficulty following instructions none Speech Pattern Clear Ambulation Patient Able to Ambulate No Balance Ability to Arise Unable Sitting Balance Leans or slides in chair Dynamic Sitting Balance Ability Poor Transfers Bed Transfer Ability Maximum x 2 (75% assist) Rehab PT IP prob,goals,plan Problems Date of Evaluation: 10/06/22 PT IP Problems Bed Mobility Rehab Potential Rehab Potential Fair Plan PT Intervention Plan Bed Mobility,Transfers, Therapeutic Exercise PT Plan Frequency Daily Duration LOS Discharge Goals Bed Transfer Ability Maximum x 1 (75% assist) Discharge Plan PT Discharge Plan Pt is currently most appropriate for SNF placement once medically stable for d/c. If he returns home without skilled intervention he will be at significant risk of further injury, worsening wounds, and falls. G -code Required No Eval Complexity Eval Charge Codes 85323 - High Complexity PHYSICIAN CERTIFICATION: I certify the specified therapy services for Can Worthy are required, authorized, and reviewed every 30 days.
--- NOTE | 2022-10-06 14:05 | HMH.OTEV ---
OT Inpatient Evaluation Rehab OT IP Evaluation Start: 10/06/22 11:07 Freq: ONCE Status: Active Protocol: Document 10/06/22 13:55 [facility] (Rec: 10/06/22 14:05 [facility] [id number]) Rehab OT IP Assessment Subjective History Pt oriented x3 on arrival. Pt agreeable to engage in therapy evaluation. Pt was admitted on 10/05/22 due to Acute kidney injury and UTI. Prior to being in the hospital , pt lived at home with his . He had recently been discharged for SNF for short term rehab. They wanted him to stay at SNF for longterm placement, but he refused. has been unable to take care of him since he came home . Pt reports he is independent with feeding. However, he does require assistance with dressing and bathing (lower body). He has bilateral BKAs. Pt is dependent upon his for all IADLs. He no longer drives. Medical history: Abscess Abscess of skin or subcutaneous tissue Acute pulmonary embolus Acute UTI Amputation of fifth toe of right foot Anemia Asthma Asthma Atypical angina Cellulitis Charcot foot due to diabetes mellitus Cholecystitis Chronic obstructive pulmonary disease Conjunctivitis, right eye Coronary artery disease COVID-19 Dehiscence of incision Diabetes 1.5, managed as type 1 Diabetic ulcer of right foot Diabetic ulcer of right midfoot associated with type 2
--- NOTE | 2022-10-06 18:14 | PC.NURSE ---
Patient complained of cramping in hands, flexeril reordered and given. Patient still complained of pain, oxycodone given. VS stable, patient remained on room air. Mepelex applied to ulcer on coccyx. IV fluids given.
[2022-10-07 04:00] VITALS: BP 103/62; PULSE 77; RESP 17; TEMP 36.8; O2SAT 92; BMI 47.5
--- NOTE | 2022-10-07 04:15 | PC.NURSE ---
PATIENT HAS NOT REPORTED ANY PAIN THIS SHIFT. [facility]X ARE[facility].
[2022-10-07 08:00] VITALS: BP 92/54; PULSE 79; RESP 18; TEMP 36.8; O2SAT 89
--- NOTE | 2022-10-07 08:32 | EXP.ACUTE.PN ---
Subjective *Date: 10/07/22 *Time: 08:32 Interval history: Patient with no new complaints today, feels a little better. Carter catheter is in place. Medical Exam Vital signs and Labs for Last 24 Hours: Vital Signs Temp Pulse Resp BP Pulse Ox 10/07/22 08:00 98.2 F 79 18 92/54 L 89 L 10/07/22 04:00 98.2 F 77 17 103/62 L 92 L 10/06/22 20:00 98.2 F 73 16 97/52 L 95 10/06/22 20:00 93 L 10/06/22 16:00 97.6 F 79 18 109/62 L 93 L 10/06/22 11:31 98.6 F 64 16 99/56 L 93 L Intake and Output 10/06/22 10/07/22 10/07/22 23:59 07:59 15:59 Intake Total 1750 / 2790 1541 / 1541 Output Total 700 / 900 1 / Balance 1050 / 1890 1540 / 1540 Intake: Intake, Oral Amount 720 / 1760 Intake, Total IV Amount 1030 / 1030 1541 / 1541 0.9 % Sodium Chloride 1000ML 1, 980 / 980 1541 / 1541 000 ml @ 150 mls/hr IV .Q6H40M [facility] Rx#:[id number] Ceftriaxone Sodium 1 gm In 0.9 50 / 50 % Sodium Chloride 50 ml @ 100 mls/hr IV Q24H [facility] Rx#:[id number] Output: Output, Urine Amount 700 / 900 1 / Other: Number of Unmeasured Voids 0 300 Number of Bowel Movements 2 4 1 Weight 382 lb 12.8 oz Patient Weight 10/07/22 23:59 Weight 382 lb 12.8 oz Laboratory Results - last 24 hr 10/06/22 08:44: WBC 5.2, RBC 3.46 L, Hgb 10.3 L D, Hct 34.6 L, MCV 99.9 H, MCH 29.5, MCHC 29.5 L, RDW 18.8 H, Plt Count 204, MPV 10.3, Neut % (Auto) 80.6 H, Lymph % (Auto) 8.8 L, Bureau % (Auto) 6.8, Eos % (Auto) 2.8, Baso % (Auto) 0.9, Neut # (Auto) 4.2, Lymph # (Auto) 0.5 L, Bureau # (Auto) 0.4, Eos # (Auto) 0.2, Baso # (Auto) 0.0 10/06/22 08:44: Sodium 130 L, Potassium 5.0, Chloride 94 L, Carbon Dioxide 27, Anion Gap 14.0, BUN 66 H, Creatinine 4.60 H, Estimated Creat Clear 20, Estimated GFR 13 L*, Est GFR ( Amer) 16 L*, Glucose 113 H, Calcium 6.7 L, Total Bilirubin 0.2, AST 23, ALT 30, Alkaline Phosphatase 133 H, Total Protein 6.1 L, Albumin 3.0 L, Globulin 3.1, Albumin/Globulin Ratio 1.0 L 10/06/22 12:28: POC Glucose 101 I & O for Labs for Last 24 Hours: Intake & Output 10/04/22 10/05/22 10/06/22 10/07/22 23:59 23:59 23:59 23:59 Intake Total 0 / 320 2790 / 2790 1541 / 1541 Output Total 300 / 500 900 / 900 Balance -300 / -180 1890 / 1890 1540 / 1540 Weight 369 lb 5 oz 368 lb 2.751 oz 382 lb 12.8 oz Microbiology Reports for the Last 24 Hours: Microbiology 10/05/22 11:36 Urine,Clean Catch Urine Culture - Preliminary NO GROWTH AFTER 24 HOURS Constitutional: Present no acute distress Respiratory: Present CTA bilaterally Cardiac: Present Reg Rate and Rhythm Extremities: Present other (Bilateral lower leg amputations); Absent clubbing or cyanosis Skin: Present intact Neuro: Present alert, awake and oriented x 3 Assessment and Plan *Assessment and plan (1) SUGEY (acute kidney injury): Status: Acute Category: Medical Code(s): N17.9 - Acute kidney failure, unspecified (2) Acute UTI: Status: Acute Category: Medical Code(s): N39.0 - Urinary tract infection, site not specified (3) Pericardial effusion: Status: Acute Category: Medical Code(s): I31.39 - Other pericardial effusion (noninflammatory) (4) Pleural effusion: Status: Acute Category: Medical Code(s): J90 - Pleural effusion, not elsewhere classified (5) CKD (chronic kidney disease): Status: Acute Category: Medical Code(s): N18.9 - Chronic kidney disease, unspecified (6) Morbid obesity: Status: Acute Category: Medical Code(s): E66.01 - Morbid (severe) obesity due to excess calories (7) Congestive heart failure: Status: Ruled-out Category: Medical Code(s): I50.9 - Heart failure, unspecified (8) Anemia: Status: Chronic Qualifiers: Anemia type: iron deficiency Iron deficiency anemia type: chronic blood loss Qualified
[2022-10-07 08:37] LABS: Basophils % 0.8 % (0.1-2.0); Eosinophils # 0.1 K/mm3 (0.0-0.4); Eosinophils % 2.4 % (0.1-12.0); Hematocrit 33.7 % (42.0-52.0); Hemoglobin 9.9 g/dL (14.1-18.0); Lymphocytes # 0.6 K/mm3 (0.7-4.5); Lymphocytes % 10.8 % (10-50); Mean Corpuscular HGB Conc 29.4 g/dL (31.8-35.4); Mean Corpuscular Hemoglobin 29.2 pg (27.0-31.2); Mean Corpuscular Volume 99.4 fl (80-94); Mean Platelet Volume 9.4 fl (7.4-10.4); Monocytes # 0.4 K/mm3 (0.1-1.0); Monocytes % 7.2 % (1.7-9.3); Neutrophils # 4.3 K/mm3 (1.8-7.8); Neutrophils % 78.8 % (37.0-80.0); Platelet Count 241 K/mm3 (142-424); Red Blood Count 3.39 M/mm3 (4.60-6.20); Red Cell Distribution Width 18.9 % (11.5-17.5); White Blood Count 5.5 K/mm3 (4.8-10.8)
[2022-10-07 09:06] LABS: Chloride 99 mmol/L (98-107); Sodium 132 mmol/L (136-145)
[2022-10-07 09:09] LABS: Blood Urea Nitrogen 71 mg/dl (9-20); Calcium 6.6 mg/dl (8.4-10.2); Carbon Dioxide 24 mmol/L (22.0-30.0); Creatinine Clearance Estimated 24 mL/min (50-200); Estimated Glomerular Filt Rate 16 ml/min (>60); GFR (African American) 20 ML/MIN (>60); Glucose 118 mg/dl (74-100)
--- NOTE | 2022-10-07 09:11 | PC.NURSE ---
courtesy tech note; rounded on pt, pt denied the need to use the restroom and the need for a drink at this time. call light within reach, no further requests at this time. HELENA Goodman
--- NOTE | 2022-10-07 15:36 | PC.NURSE ---
courtesy tech note; rounded on pt, pt denied snack, drink, need to use the restroom, need to reposition in bed. call light within reach. no further requests at this time. HELENA Goodman
[2022-10-07 16:00] VITALS: BP 124/67; PULSE 81; RESP 18; TEMP 36.8; O2SAT 95
--- NOTE | 2022-10-07 18:22 | PC.NURSE ---
courtesy tech note; pt moved to bariatric bed using mechanical lift. tolerated well, assisted pt to comfortable position. pt denies need to use the restroom, or need for a drink. call light within reach. no further requests at this time.
[2022-10-07 19:37] VITALS: O2SAT 95
[2022-10-07 20:00] VITALS: BP 101/67; PULSE 78; RESP 16; TEMP 36.7; O2SAT 93
[2022-10-08 04:00] VITALS: BP 114/65; PULSE 82; RESP 16; TEMP 36.6; O2SAT 94; BMI 48.9
--- NOTE | 2022-10-08 05:33 | PC.NURSE ---
concerned re patients UOP. for this shift as of 4 am: total IVFs 3382 ML. TOTAL UOP OF 4 PM 200ML CLOUDY URINE. SEVERAL BLADDER SCAN READINGS MADE WITH THE HIGHEST READING OF 22 ML. VITAL SIGNS STABLE/AFEBRILE. NO C/O PAIN. LUNGS C/D BILAT. HR REGULAR. MAY NEED DIURETICWILL NOTIFY .
--- NOTE | 2022-10-08 05:42 | PC.NURSE ---
DR SUHAIL LOZANO.
--- NOTE | 2022-10-08 05:48 | PC.NURSE ---
DR JANG RETURNED PAGE AND INFORMED OF TOTAL INTAKE 3572 AND TOTAL UOP 200 . ORDERS PENDING ON OUTCOME OF MORNING LABS. PATIENT HAS NO COMPLAINTS AT THIS TIME.
--- NOTE | 2022-10-08 05:56 | PC.NURSE ---
PATIENT DID NOT USE HIS CPAP TONIGHT. 02 SAT 94% ON ROOM AIR. NO C/O PAIN OR DISCOMFORT AT THIS TIME. URINE CLOUDY. VSS/AFEBRILE.
[2022-10-08 07:20] VITALS: BP 95/55; PULSE 89; RESP 18; TEMP 36.5; O2SAT 93
[2022-10-08 07:20] LABS: Chloride 101 mmol/L (98-107)
[2022-10-08 07:21] LABS: Basophils % 0.8 % (0.1-2.0); Eosinophils # 0.1 K/mm3 (0.0-0.4); Eosinophils % 3.1 % (0.1-12.0); Hematocrit 33.1 % (42.0-52.0); Hemoglobin 9.8 g/dL (14.1-18.0); Lymphocytes # 0.6 K/mm3 (0.7-4.5); Lymphocytes % 14.3 % (10-50); Mean Corpuscular HGB Conc 29.7 g/dL (31.8-35.4); Mean Corpuscular Hemoglobin 29.2 pg (27.0-31.2); Mean Corpuscular Volume 98.4 fl (80-94); Mean Platelet Volume 9.3 fl (7.4-10.4); Monocytes # 0.4 K/mm3 (0.1-1.0); Monocytes % 9.4 % (1.7-9.3); Neutrophils # 3.1 K/mm3 (1.8-7.8); Neutrophils % 72.5 % (37.0-80.0); Platelet Count 216 K/mm3 (142-424); Potassium 4.6 mmoL/L (3.5-5.1); Red Blood Count 3.37 M/mm3 (4.60-6.20); Sodium 134 mmol/L (136-145); White Blood Count 4.3 K/mm3 (4.8-10.8)
[2022-10-08 07:23] LABS: Blood Urea Nitrogen 68 mg/dl (9-20); Creatinine Clearance Estimated 26 mL/min (50-200); Estimated Glomerular Filt Rate 18 ml/min (>60); GFR (African American) 22 ML/MIN (>60)
[2022-10-08 07:24] LABS: Anion Gap 11.6 mEq/L (5-15); Calcium 6.4 mg/dl (8.4-10.2); Carbon Dioxide 26 mmol/L (22.0-30.0); Glucose 111 mg/dl (74-100)
--- NOTE | 2022-10-08 08:29 | EXP.ACUTE.PN ---
Subjective *Date: 10/08/22 *Time: 08:50 Interval history: Patient states he feels like he has pressure in his bladder. Nurse did bladder scan this morning and pt only had about 30 mL's of urine. Catheter was irrigated last night. Medical Exam Vital signs and Labs for Last 24 Hours: Vital Signs Temp Pulse Resp BP Pulse Ox 10/08/22 07:20 97.7 F 89 18 95/55 L 93 L 10/08/22 04:00 97.9 F 82 16 114/65 94 L 10/07/22 20:00 98.1 F 78 16 101/67 L 93 L 10/07/22 19:37 95 10/07/22 16:00 98.2 F 81 18 124/67 95 Intake and Output 10/07/22 10/08/22 10/08/22 23:59 07:59 15:59 Intake Total 2672 / 4933 1310 / 1310 Output Total Balance 2672 / 4932 1309 / 1309 Intake: Intake, Oral Amount 240 / 960 360 / 360 Intake, Total IV Amount 2432 / 3973 950 / 950 0.9 % Sodium Chloride 1000ML 1, 2432 / 3973 950 / 950 000 ml @ 150 mls/hr IV .Q6H40M [facility] Rx#:[id number] Output: Output, Urine Amount Other: Number of Unmeasured Voids 0 1 Number of Bowel Movements 3 Weight 393 lb 8.402 oz Patient Weight 10/08/22 23:59 Weight 393 lb 8.402 oz Laboratory Results - last 24 hr 10/07/22 07:41: WBC 5.5, RBC 3.39 L, Hgb 9.9 L, Hct 33.7 L, MCV 99.4 H, MCH 29.2, MCHC 29.4 L, RDW 18.9 H, Plt Count 241, MPV 9.4, Neut % (Auto) 78.8, Lymph % (Auto) 10.8, Terry % (Auto) 7.2, Eos % (Auto) 2.4, Baso % (Auto) 0.8, Neut # (Auto) 4.3, Lymph # (Auto) 0.6 L, Terry # (Auto) 0.4, Eos # (Auto) 0.1, Baso # (Auto) 0.0 10/07/22 07:41: Sodium 132 L, Potassium 5.0, Chloride 99, Carbon Dioxide 24, Anion Gap 14.0, BUN 71 H, Creatinine 3.80 H, Estimated Creat Clear 24, Estimated GFR 16 L*, Est GFR ( Amer) 20 L D, Glucose 118 H, Calcium 6.6 L 10/08/22 07:02: WBC 4.3 L, RBC 3.37 L, Hgb 9.8 L, Hct 33.1 L, MCV 98.4 H, MCH 29.2, MCHC 29.7 L, RDW 19.0 H, Plt Count 216, MPV 9.3, Neut % (Auto) 72.5, Lymph % (Auto) 14.3, Terry % (Auto) 9.4 H, Eos % (Auto) 3.1, Baso % (Auto) 0.8, Neut # (Auto) 3.1, Lymph # (Auto) 0.6 L, Terry # (Auto) 0.4, Eos # (Auto) 0.1, Baso # (Auto) 0.0 10/08/22 07:02: Sodium 134 L, Potassium 4.6, Chloride 101, Carbon Dioxide 26, Anion Gap 11.6, BUN 68 H, Creatinine 3.50 H, Estimated Creat Clear 26, Estimated GFR 18 L*, Est GFR ( Amer) 22 L, Glucose 111 H, Calcium 6.4 L I & O for Labs for Last 24 Hours: Intake & Output 10/05/22 10/06/22 10/07/22 10/08/22 23:59 23:59 23:59 23:59 Intake Total 0 / 320 2790 / 2790 4933 / 4933 1310 / 1310 Output Total 300 / 500 900 / 900 Balance -300 / -180 1890 / 1890 4932 / 4932 1309 / 1309 Weight 369 lb 5 oz 368 lb 2.751 oz 382 lb 12.8 oz 393 lb 8.402 oz Microbiology Reports for the Last 24 Hours: Microbiology 10/05/22 11:36 Urine,Clean Catch Urine Culture - Final NO GROWTH AFTER 48 HOURS Constitutional: Present no acute distress Respiratory: Present CTA bilaterally Cardiac: Present Reg Rate and Rhythm Extremities: Present other (Bilateral lower leg amputations); Absent clubbing or cyanosis Skin: Present intact Neuro: Present alert, awake and oriented x 3 Assessment and Plan *Assessment and plan (1) SUGEY (acute kidney injury): Status: Acute Category: Medical Code(s): N17.9 - Acute kidney failure, unspecified (2) Acute UTI: Status: Acute Category: Medical Code(s): N39.0 - Urinary tract infection, site not specified (3) Pericardial effusion: Status: Acute Category: Medical Code(s): I31.39 - Other pericardial effusion (noninflammatory) (4) Pleural effusion: Status: Acute Category: Medical Code(s): J90 - Pleural effusion, not elsewhere classified (5) CKD (chronic kidney disease): Status: Acute Category: Medical Code(s): N18.9 - Chronic kidney disease, unspecified (6) Morbid obesity: Status: Acute Category: Medical Code(s): E66.01 - Morbid (severe) obesity due to ex
[2022-10-08 14:54] VITALS: BP 139/80; PULSE 84; RESP 18; TEMP 36.6; O2SAT 96
--- NOTE | 2022-10-08 17:42 | PC.NURSE ---
Scrotal edema as well as bilateral lower extremity edema noted. Dr. Maynard notified but no new orders. Fluids remain at 150 ml/hr. VS stable and patient remained on room air. Lung sounds diminished. Pain reported, prn medications given and no other reports of pain noted.
[2022-10-08 20:00] VITALS: BP 123/78; PULSE 79; RESP 18; TEMP 36.8; O2SAT 97
[2022-10-09 04:00] VITALS: BP 119/73; PULSE 75; RESP 18; TEMP 36.5; O2SAT 96; BMI 49.5
--- NOTE | 2022-10-09 05:54 | PC.NURSE ---
Scrotal edema as well as bilateral lower extremity xavier. Fluids remain at 150 ml/hr. VS stable and patient remained on room air with sats in the 90 s. Lung sounds diminished. Pain meds given once during my shift. No other issues during the night.
[2022-10-09 07:02] LABS: Basophils % 0.8 % (0.1-2.0); Chloride 105 mmol/L (98-107); Eosinophils # 0.2 K/mm3 (0.0-0.4); Eosinophils % 3.5 % (0.1-12.0); Hematocrit 36.6 % (42.0-52.0); Hemoglobin 10.6 g/dL (14.1-18.0); Lymphocytes # 0.6 K/mm3 (0.7-4.5); Lymphocytes % 10.8 % (10-50); Mean Corpuscular Hemoglobin 28.9 pg (27.0-31.2); Mean Corpuscular Volume 99.5 fl (80-94); Monocytes # 0.4 K/mm3 (0.1-1.0); Monocytes % 8.1 % (1.7-9.3); Neutrophils # 3.9 K/mm3 (1.8-7.8); Neutrophils % 76.8 % (37.0-80.0); Platelet Count 215 K/mm3 (142-424); Red Blood Count 3.68 M/mm3 (4.60-6.20); Red Cell Distribution Width 19.1 % (11.5-17.5)
[2022-10-09 07:03] LABS: Potassium 4.4 mmoL/L (3.5-5.1); Sodium 137 mmol/L (136-145)
[2022-10-09 07:06] LABS: Anion Gap 13.4 mEq/L (5-15); Blood Urea Nitrogen 65 mg/dl (9-20); Calcium 6.7 mg/dl (8.4-10.2); Carbon Dioxide 23 mmol/L (22.0-30.0); Creatinine Clearance Estimated 43 mL/min (50-200); Estimated Glomerular Filt Rate 32 ml/min (>60); GFR (African American) 39 ML/MIN (>60); Glucose 113 mg/dl (74-100)
[2022-10-09 08:00] VITALS: BP 137/83; PULSE 95; RESP 20; TEMP 36.6; O2SAT 97
--- NOTE | 2022-10-09 08:41 | EXP.ACUTE.PN ---
Subjective *Date: 10/09/22 *Time: 08:41 Interval history: Patient with no new complaints today. Medical Exam Vital signs and Labs for Last 24 Hours: Vital Signs Temp Pulse Resp BP Pulse Ox 10/09/22 08:00 97.8 F 95 H 20 137/83 97 10/09/22 04:00 97.7 F 75 18 119/73 96 10/08/22 20:00 97 10/08/22 20:00 98.3 F 79 18 123/78 10/08/22 14:54 97.8 F 84 18 139/80 96 Intake and Output 10/08/22 10/09/22 10/09/22 23:59 07:59 15:59 Intake Total 1984 1200 / 1440 240 / 1440 Output Total 0 / 501 1400 / 1550 150 / 1550 Balance 1984 -200 / -110 90 / -110 Intake: Intake, Oral Amount 240 / 240 Intake, Total IV Amount 1984 1200 / 1200 0.9 % Sodium Chloride 1000ML 1, 193 / 2884 1200 / 1200 000 ml @ 150 mls/hr IV .Q6H40M [facility] Rx#:[id number] Ceftriaxone Sodium 1 gm In 0.9 50 / 50 % Sodium Chloride 50 ml @ 100 mls/hr IV Q24H [facility] Rx#:[id number] Output: Output, Urine Amount 0 / 501 1400 / 1550 150 / 1550 Other: Number of Unmeasured Voids 0 0 0 Number of Bowel Movements 1 Weight 398 lb 6.005 oz Patient Weight 10/09/22 23:59 Weight 398 lb 6.005 oz Laboratory Results - last 24 hr 10/09/22 06:43: WBC 5.0, RBC 3.68 L, Hgb 10.6 L, Hct 36.6 L, MCV 99.5 H, MCH 28.9, MCHC 29.0 L, RDW 19.1 H, Plt Count 215, MPV 9.0, Neut % (Auto) 76.8, Lymph % (Auto) 10.8, [place] % (Auto) 8.1, Eos % (Auto) 3.5, Baso % (Auto) 0.8, Neut # (Auto) 3.9, Lymph # (Auto) 0.6 L, [place] # (Auto) 0.4, Eos # (Auto) 0.2, Baso # (Auto) 0.0 10/09/22 06:43: Sodium 137, Potassium 4.4, Chloride 105, Carbon Dioxide 23, Anion Gap 13.4, BUN 65 H, Creatinine 2.10 H D, Estimated Creat Clear 43, Estimated GFR 32 L, Est GFR ( Amer) 39 L D, Glucose 113 H, Calcium 6.7 L I & O for Labs for Last 24 Hours: Intake & Output 10/06/22 10/07/22 10/08/22 10/09/22 23:59 23:59 23:59 23:59 Intake Total 2790 / 2790 4933 / 4933 3655 / 3655 1440 / 1440 Output Total 900 / 900 501 / 501 1550 / 1550 Balance 1890 / 1890 4932 / 4932 3154 / 3154 -110 / -110 Weight 368 lb 2.751 oz 382 lb 12.8 oz 393 lb 8.402 oz 398 lb 6.005 oz Constitutional: Present no acute distress Respiratory: Present CTA bilaterally Cardiac: Present Reg Rate and Rhythm Extremities: Present other (Bilateral lower leg amputations); Absent clubbing or cyanosis Skin: Present intact Neuro: Present alert, awake and oriented x 3 Assessment and Plan *Assessment and plan (1) SUGEY (acute kidney injury): Status: Acute Category: Medical Code(s): N17.9 - Acute kidney failure, unspecified (2) Acute UTI: Status: Acute Category: Medical Code(s): N39.0 - Urinary tract infection, site not specified (3) Pericardial effusion: Status: Acute Category: Medical Code(s): I31.39 - Other pericardial effusion (noninflammatory) (4) Pleural effusion: Status: Acute Category: Medical Code(s): J90 - Pleural effusion, not elsewhere classified (5) CKD (chronic kidney disease): Status: Acute Category: Medical Code(s): N18.9 - Chronic kidney disease, unspecified (6) Morbid obesity: Status: Acute Category: Medical Code(s): E66.01 - Morbid (severe) obesity due to excess calories (7) Congestive heart failure: Status: Ruled-out Category: Medical Code(s): I50.9 - Heart failure, unspecified (8) Anemia: Status: Chronic Qualifiers: Anemia type: iron deficiency Iron deficiency anemia type: chronic blood loss Qualified Code(s): D50.0 - Iron deficiency anemia secondary to blood loss (chronic) Category: Medical Code(s): D64.9 - Anemia, unspecified (9) Chronic obstructive pulmonary disease: Status: Chronic Category: Medical Code(s): J44.9 - Chronic obstructive pulmonary disease, unspecified (10) Coronary artery disease: Status: Chronic Category:
--- NOTE | 2022-10-09 11:02 | CARE MANAGER ---
Addendum entered by Valeria Bello RN 10/11/22 14:20: [facility] is not able to offer patient a bed. He should discharge home today with HH and will require ambulance transfer. Resume HH orders faxed to [facility]. Addendum entered by Valeria Bello RN 10/11/22 12:24: I faxed the referral to [facility] yesterday afternoon, and they are still reviewing. All of the other facilities have been unable to offer patient a bed. Patient should either have a bed offer from [facility] this afternoon, or be discharged home with HH services. CM will continue to follow. Addendum entered by Valeria Bello RN 10/10/22 10:16: [facility] and [facility] have both reviewed and denied patient. I continue to wait for decision from [facility] and [facility]. I will also fax to [facility] and [facility] today. Addendum entered by Valeria Bello RN 10/09/22 13:51: Patient's information has been faxed to [facility], [facility], [facility], [facility], [facility] and [facility]. Original Note: I met with patient and his this morning to discuss discharge planning needs. Both are agreeable to assisted placement at a [place] facility. I have faxed the referral to [facility] and spoken with [facility], who is reviewing referral. Plan is for patient to discharge into an [facility] bed Medicaid pending. CM will continue to follow for discharge planning needs.
[2022-10-09 16:00] VITALS: BP 146/79; PULSE 94; RESP 20; TEMP 35.9; O2SAT 95
[2022-10-09 19:46] VITALS: BP 137/78; PULSE 106; RESP 20; TEMP 36.4; O2SAT 96
[2022-10-09 19:54] VITALS: O2SAT 98
--- NOTE | 2022-10-10 00:54 | PC.NURSE ---
Dr. Maynard called at 00:00 and said to stop iv fluids.
[2022-10-10 04:00] VITALS: BP 154/89; PULSE 89; RESP 18; TEMP 36.4; O2SAT 95; BMI 49.8
--- NOTE | 2022-10-10 04:30 | PC.NURSE ---
Scrotal edema as well as bilateral lower extremity xavier. VS stable and patient remained on room air with sats in the 90 s. Lung sounds diminished. Pain meds given once during my shift. [facility]
[2022-10-10 08:00] VITALS: BP 177/78; PULSE 115; RESP 24; TEMP 36.4; O2SAT 95
--- NOTE | 2022-10-10 08:11 | EXP.ACUTE.PN ---
Subjective *Date: 10/10/22 *Time: 08:43 Interval history: Patient states he does not sleep. He states he never sleeps. He is afraid to close his eyes because he is afraid that he will not wake up. Nursing notes that with the rounds during the night that he appears to be sleeping. He cannot eat because he feels like he is about ready to pop. He is nauseated. Bowels have not moved in 3 days. He continues with a Carter catheter. Care management is looking for longterm placement. Medical Exam Vital signs and Labs for Last 24 Hours: Vital Signs Temp Pulse Resp BP Pulse Ox 10/10/22 04:00 97.6 F 89 18 154/89 H 95 10/09/22 19:54 98 10/09/22 19:46 97.6 F 106 H 20 137/78 96 10/09/22 16:00 96.7 F L 94 H 20 146/79 H 95 Intake and Output 10/09/22 10/10/22 10/10/22 19:59 03:59 11:59 Intake Total 480 / 480 750 / 1230 Output Total 600 / 600 0 / 600 1100 / 1700 Balance -120 / -120 750 / 630 -1100 / -470 Intake: Intake, Oral Amount 480 / 480 Intake, Total IV Amount 750 / 750 0.9 % Sodium Chloride 1000ML 1, 750 / 750 000 ml @ 150 mls/hr IV .Q6H40M [facility] Rx#:[id number] Output: Output, Urine Amount 0 / 0 0 / 0 1100 / 1100 Output, Urine Amount (Catheter) 600 / 600 Carter 600 / 600 Other: Number of Unmeasured Voids 0 0 0 Number of Bowel Movements 1 Weight 401 lb 3.861 oz Patient Weight 10/10/22 11:59 Weight 401 lb 3.861 oz I & O for Labs for Last 24 Hours: Intake & Output 10/07/22 10/08/22 10/09/22 10/10/22 11:59 11:59 11:59 11:59 Intake Total 4131 / 4131 4222 / 4222 3785 / 3785 1230 / 1230 Output Total 701 / 701 2049 1700 / 1700 Balance 3430 / 3430 4221 / 4221 1735 / 1735 -470 / -470 Weight 382 lb 12.8 oz 393 lb 8.402 oz 398 lb 6.005 oz 401 lb 3.861 oz Head: Present atraumatic and normocephalic Respiratory: Present CTA bilaterally Cardiac: Present Irregularly Regular (100/min) GI: Present other (Obese abdomen); Absent tenderness or guarding (male): Present scrotal swelling Comment:: Carter catheter to bedside drainage Extremities: Present edema (Thighs and above amputations) and other (Bilateral leg amputee) Skin: Present wounds (Coccyx wound. Picture noted) Neuro: Present Weakness, alert and moves all extremities Assessment and Plan *Assessment and plan (1) SUGEY (acute kidney injury): Status: Acute Category: Medical Code(s): N17.9 - Acute kidney failure, unspecified (2) Acute UTI: Status: Acute Category: Medical Code(s): N39.0 - Urinary tract infection, site not specified (3) Pericardial effusion: Status: Acute Category: Medical Code(s): I31.39 - Other pericardial effusion (noninflammatory) (4) Pleural effusion: Status: Acute Category: Medical Code(s): J90 - Pleural effusion, not elsewhere classified (5) CKD (chronic kidney disease): Status: Acute Category: Medical Code(s): N18.9 - Chronic kidney disease, unspecified (6) Morbid obesity: Status: Acute Category: Medical Code(s): E66.01 - Morbid (severe) obesity due to excess calories (7) Congestive heart failure: Status: Ruled-out Category: Medical Code(s): I50.9 - Heart failure, unspecified (8) Anemia: Status: Chronic Qualifiers: Anemia type: iron deficiency Iron deficiency anemia type: chronic blood loss Qualified Code(s): D50.0 - Iron deficiency anemia secondary to blood loss (chronic) Category: Medical Code(s): D64.9 - Anemia, unspecified (9) Chronic obstructive pulmonary disease: Status: Chronic Category: Medical Code(s): J44.9 - Chronic obstructive pulmonary disease, unspecified (10) Coronary artery disease: Status: Chronic Category: Medical Code(s): I25.10 - Atherosclerotic heart disease of [place] coronary artery without angina pectoris (11
--- NOTE | 2022-10-10 11:42 | DIET.NUTRFU ---
Addendum entered by Celeste Candelario RD, LD 10/10/22 13:47: did review and provide handout again this admit for increased protein needs in his diet to promote healing Original Note: Patient was noted to have increased nauseated and feeling bloated. He has zofran ordered. Meal intake reviewed, he consumed 25% of most meals yesterday and this morning was at 75%. His renal function has improved with Cr down to 2.10, still recommended to be under 2.0 before adding in high protein supplements to promote skin integrity. He continues to have skin breakdown to coccyx. He is also noted to have edema to BLE and scrotum, lasix ordered and IVF discontinued. Patient reported no BM, feeling ready to pop. Nursing noted multiple small BM on 10/09. Patient is working with case assembler on placement. Other l;abs reviewed- BS fairy well controlled under 120 since admit. Will continue to monitor Cr level and add prostat AWC for wound healing if goes under 2.0 well still here. He has been educated in the past about prioritizing his meal intake to high protein foods to help with healing.
--- NOTE | 2022-10-10 15:30 | PC.NURSE ---
no acute changes from previous shift. still waiting for placement. pt stated if his heart were to stop beating he did not want to be intubated. DNI paper signed.
[2022-10-10 16:00] VITALS: BP 166/72; PULSE 105; RESP 19; TEMP 36.8; O2SAT 96
[2022-10-10 19:46] VITALS: O2SAT 99
[2022-10-10 20:00] VITALS: BP 133/86; PULSE 105; RESP 18; TEMP 36.6; O2SAT 91
[2022-10-11 03:55] VITALS: BP 117/73; PULSE 91; RESP 16; TEMP 36.5; O2SAT 94; BMI 49.2
--- NOTE | 2022-10-11 05:03 | PC.NURSE ---
Pt. got a pain pill and muscle relaxer during the night. No other changes.
[2022-10-11 07:27] LABS: Eosinophils # 0.1 K/mm3 (0.0-0.4); Hematocrit 37.1 % (42.0-52.0); Hemoglobin 10.6 g/dL (14.1-18.0); Lymphocytes # 0.6 K/mm3 (0.7-4.5); Lymphocytes % 13.1 % (10-50); Mean Corpuscular HGB Conc 28.7 g/dL (31.8-35.4); Mean Corpuscular Hemoglobin 28.3 pg (27.0-31.2); Mean Corpuscular Volume 98.8 fl (80-94); Mean Platelet Volume 9.4 fl (7.4-10.4); Monocytes # 0.4 K/mm3 (0.1-1.0); Monocytes % 9.1 % (1.7-9.3); Neutrophils # 3.2 K/mm3 (1.8-7.8); Neutrophils % 74.8 % (37.0-80.0); Platelet Count 200 K/mm3 (142-424); Red Blood Count 3.75 M/mm3 (4.60-6.20); White Blood Count 4.3 K/mm3 (4.8-10.8)
[2022-10-11 07:30] LABS: Chloride 109 mmol/L (98-107); Potassium 5.1 mmoL/L (3.5-5.1); Sodium 139 mmol/L (136-145)
[2022-10-11 07:33] LABS: Anion Gap 11.1 mEq/L (5-15); Blood Urea Nitrogen 54 mg/dl (9-20); Carbon Dioxide 24 mmol/L (22.0-30.0); Creatinine Clearance Estimated 70 mL/min (50-200); Estimated Glomerular Filt Rate 56 ml/min (>60); GFR (African American) 67 ML/MIN (>60)
[2022-10-11 07:34] LABS: Calcium 7.5 mg/dl (8.4-10.2); Glucose 140 mg/dl (74-100)
[2022-10-11 08:00] VITALS: BP 134/74; PULSE 98; RESP 18; TEMP 36.4; O2SAT 87
--- NOTE | 2022-10-11 08:10 | EXP.ACUTE.PN ---
Subjective *Date: 10/11/22 *Time: 08:30 Interval history: Patient states he might feel little bit better this morning. He did sleep last night. He does not recall much of yesterday. He does not remember how he ate. He does not remember working with physical therapy. But he states he did work with physical therapy. Notes reviewed and he eats poorly. Uncertain if bowels moved after suppository. Urinary output has been good after Lasix. Continues with Carter catheter. Blood pressure is better today. Labs indicate improving renal function. Medical Exam Vital signs and Labs for Last 24 Hours: Vital Signs Temp Pulse Resp BP Pulse Ox 10/11/22 03:55 97.7 F 91 H 16 117/73 94 L 10/10/22 20:00 97.8 F 105 H 18 133/86 91 L 10/10/22 19:46 99 10/10/22 16:00 98.2 F 105 H 19 166/72 H 96 Intake and Output 10/10/22 10/11/22 10/11/22 19:59 03:59 11:59 Intake Total 240 / 240 120 / 360 Output Total 1999 / 1999 425 / 2425 0 / 2425 Balance -1760 / -1760 -305 / -2065 0 / -2065 Intake: Intake, Oral Amount 240 / 240 120 / 360 Output: Output, Urine Amount 1000 / 1000 425 / 1425 0 / 1425 Output, Urine Amount (Catheter) 1000 / 1000 Carter 1000 / 1000 Other: Number of Unmeasured Voids 1 0 0 Weight 395 lb 15.203 oz Patient Weight 10/11/22 11:59 Weight 395 lb 15.203 oz Laboratory Results - last 24 hr 10/11/22 06:51: WBC 4.3 L, RBC 3.75 L, Hgb 10.6 L, Hct 37.1 L, MCV 98.8 H, MCH 28.3, MCHC 28.7 L, RDW 19.0 H, Plt Count 200, MPV 9.4, Neut % (Auto) 74.8, Lymph % (Auto) 13.1, [place] % (Auto) 9.1, Eos % (Auto) 2.0, Baso % (Auto) 1.0, Neut # (Auto) 3.2, Lymph # (Auto) 0.6 L, [place] # (Auto) 0.4, Eos # (Auto) 0.1, Baso # (Auto) 0.0 10/11/22 06:51: Sodium 139, Potassium 5.1, Chloride 109 H, Carbon Dioxide 24, Anion Gap 11.1, BUN 54 H, Creatinine 1.30 H D, Estimated Creat Clear 70, Estimated GFR 56 L, Est GFR ( Amer) 67 D, Glucose 140 H, Calcium 7.5 L I & O for Labs for Last 24 Hours: Intake & Output 10/08/22 10/09/22 10/10/22 10/11/22 11:59 11:59 11:59 11:59 Intake Total 4222 / 4222 3785 / 3785 1470 / 1470 360 / 360 Output Total 2049 1700 / 1700 2425 / 2425 Balance 4221 / 4221 1735 / 1735 -230 / -230 -2064 / -2064 Weight 393 lb 8.402 oz 398 lb 6.005 oz 401 lb 3.861 oz 395 lb 15.203 oz Constitutional: Present no acute distress Respiratory: Present CTA bilaterally Cardiac: Present Irregularly Regular GI: Present soft; Absent tenderness Comments:: Obese (male): Present scrotal swelling Comment:: Bilateral amputee with edema of thighs Neuro: Present Weakness, alert and awake (Difficult to determine orientation. Poor memory /recall.) Assessment and Plan *Assessment and plan (1) SUGEY (acute kidney injury): Status: Acute Category: Medical Code(s): N17.9 - Acute kidney failure, unspecified (2) Acute UTI: Status: Acute Category: Medical Code(s): N39.0 - Urinary tract infection, site not specified (3) Pericardial effusion: Status: Acute Category: Medical Code(s): I31.39 - Other pericardial effusion (noninflammatory) (4) Pleural effusion: Status: Acute Category: Medical Code(s): J90 - Pleural effusion, not elsewhere classified (5) CKD (chronic kidney disease): Status: Acute Category: Medical Code(s): N18.9 - Chronic kidney disease, unspecified (6) Morbid obesity: Status: Acute Category: Medical Code(s): E66.01 - Morbid (severe) obesity due to excess calories (7) Congestive heart failure: Status: Ruled-out Category: Medical Code(s): I50.9 - Heart failure, unspecified (8) Anemia: Status: Chronic Qualifiers: Anemia type: iron deficiency Iron deficiency anemia type: chronic blood loss Qualified Code(s): D50.0 - Iron deficiency anemia secondary to blood loss (chronic) Category: Medical Code(s):
--- NOTE | 2022-10-11 15:29 | HMH.PHAINT1 ---
Pharmacy Intervention Comments: Counseled patient to STOP furosemide on discharge and CONTINUE all other home medications. Patient expressed understanding of medication change.
--- NOTE | 2022-10-12 12:33 | EXP.DC.SUM ---
General Admission date:: 10/05/22 Discharge date: 10/11/22 HPI HPI HPI: 61-year-old well-known to this department and organization presents today with decreased urine output.? States that he has just been unable to pee the last few days.? He does state he has had some mild increase in lethargy and weakness but this is chronic.? Also states he has had some left-sided flank pain which is little bit more than normal in the past.? Says he had an abdominal wall abscess in the past that felt similar but has had no increasing redness or soft tissue deformities or abnormalities that has been noted.? No history of any prostate problems he states.? No blood in his urine recently.? No fevers chills or other infectious symptoms.? His only symptom is primarily decreased urine output.? A Carter catheter was placed prior to my evaluation which had several 100 cc of very dark-colored urine. (above as per ER agatha) [facility]. His states they wanted to switch him to long-term care and he did not want to stay, so he came home. She has had difficulty caring for him at home as he has been bed ridden and very weak. He has had home health. She states he did go to see his oncologist about a week ago and was told he had fluid around his lung and around his heart. He was sent to a network communications engineer who apparently drained the fluid. After he got back home, he remained very weak and lethargic. He has had difficulty eating and drinking due to nausea and his states he has had very little urine output the past few days and his urine has been dark in color. She therefore brought him to the emergency room today where he was found to be in renal failure and have a urinary tract infection. Hospital Course Hospital Course Hospital Course: The patient's abdominal pelvic CT showed moderate bilateral pleural effusions with pericardial effusion layering to the depth of 2 cm. There was nonspecific stranding of fat in the pelvis but no other abdominal findings. The patient was started on IV antibiotics and IV fluids. Hospice was discussed with the patient's , but he declined. His nausea did improve and he was able to begin eating small amounts. His home medications were reordered. His urine culture showed no growth. He stated he continued to feel some pressure in his bladder. The nurse did a bladder scan and patient only had about 30 mils of urine. His catheter was irrigated. His creatinine did improve with IV fluids. His Rocephin was discontinued after his urine culture returned normal. It was felt he was stable for discharge and he was agreeable for residential facility placement. He did have constipation and a Dulcolax suppository was given. His fluids were saline locked. His Bystolic was restarted and he had to be given a 40 mg dose of IV Lasix on 10/10/2022 due to swelling. He was started on anxiety/depression medication. His Carter was removed on 10/11/2022. After extensive search, care management was unable to find a residential facility who would accept the patient. He was discharged home and home health will be resumed with psychiatric navigators. Exam Data for Last 24 hours Vital signs and Labs for Last 24 Hours: Temp Pulse Resp BP Pulse Ox 97.6 F 98 H 18 134/74 87 L 10/11/22 08:00 10/11/22 08:00 10/11/22 08:00 10/11/22 08:00 10/11/22 08:00 I & O for Last 24 hours: Intake & Output 10/10/22 10/11/22 10/12/22 10/13/22 11:59 11:59 11:59 11:59 Intake Total 1470 / 1470 720 / 720 360 / 360 Output Total 1700 / 1700 2575 / 2575 0 / 0 Balance -230 / -230 -1855 / -1855 360 / 360 Weight 401 lb 3.861 oz 395 lb 15.203 oz Narrative: Constitutional Constitutional: no acute distress, morbidly obese and chronically ill appearing *Routine HEENT Exam Head: Present normocephalic and atraumatic Eye: Present EOMI and PERRL ENT: Present mucous membranes dry and oropharynx c
--- NOTE | 2022-10-12 14:50 | CARE MANAGER ---
Spoke with patient for post-discharge phone interview, she states that patient is no good. She states that patient sleeps alot she did say that patient has no issues with medications and is aware of follow-up appointment.
== END 2022-10-11 16:49 | disposition home health service (06) | DRG 683 ==
LOC: ER 12:42 → 2ND 12:56
PROVIDERS: Nurse Practitioner Family; Physician Assistant; Admitting Provider Family Medicine; Emergency Provider Student in an Organized Health Care Education/Training Program; PCP Family Medicine; Visit Provider Family Medicine
DX: N17.9 Acute kidney failure, unspecified (principal); C79.51 Secondary malignant neoplasm of bone; I31.39 Other pericardial effusion (noninflammatory); Z68.42 Body mass index [BMI] 45.0-49.9, adult; N39.0 Urinary tract infection, site not specified; Z86.718 Personal history of other venous thrombosis and embolism; J44.9 Chronic obstructive pulmonary disease, unspecified; Z86.711 Personal history of pulmonary embolism; E66.9 Obesity, unspecified; Z95.5 Presence of coronary angioplasty implant and graft; Z87.891 Personal history of nicotine dependence; E11.22 Type 2 diabetes mellitus with diabetic chronic kidney disease; N18.9 Chronic kidney disease, unspecified; E66.01 Morbid (severe) obesity due to excess calories; C73 Malignant neoplasm of thyroid gland; D50.9 Iron deficiency anemia, unspecified; F41.9 Anxiety disorder, unspecified; F32.A Depression, unspecified
CPT/HCPCS: 36415; 51702; 74177; 80048; 80053; 81001; 82962; 85025; 87086; 97110; 97163; 97166; 99285; C9803; J0696; U0003; U0005

== ENCOUNTER 2022-10-15 17:10 | Observation (INO) | payer MEDICARE, SELFPAY ==
[2022-10-15] VITALS (7 sets, daily range): BP systolic 99–110; BP diastolic 59–70; PULSE 75–91; RESP 12–20; TEMP 36.2–36.7; O2SAT 95–100; BMI 49.4
--- NOTE | 2022-10-15 17:24 | ECG_ITS ---
APPROVED REPORT Exam: Resting ECG HR:85 bpm ECG Measurements Heart Rate 85 AXES QRSd 85 QRS 95 QT 363 T 73 QTc 405 Conclusion ATRIAL FIBRILLATION BORDERLINE RIGHT AXIS DEVIATION [QRS AXIS > 90] LOW QRS VOLTAGE [QRS DEFLECTION < 0.5/1.0 mV IN LIMB/CHEST LEADS] POSSIBLE ANTERIOR MYOCARDIAL INFARCTION , PROBABLY OLD [30 ms Q WAVE IN V3/V4, OR R < 0.2 mV IN V4] ABNORMAL ECG UNCONFIRMED REPORT Electronically signed by : Richie Coulter MD 10/16/2022 20:35:03
--- NOTE | 2022-10-15 17:32 | PC.NURSE ---
covid swab to floor
[2022-10-15 17:38] LABS: Basophils % 0.8 % (0.1-2.0); Eosinophils # 0.4 K/mm3 (0.0-0.4); Eosinophils % 6.7 % (0.1-12.0); Hematocrit 39.1 % (42.0-52.0); Hemoglobin 11.5 g/dL (14.1-18.0); Lymphocytes # 0.8 K/mm3 (0.7-4.5); Lymphocytes % 13.9 % (10-50); Mean Corpuscular HGB Conc 29.5 g/dL (31.8-35.4); Mean Corpuscular Hemoglobin 29.1 pg (27.0-31.2); Mean Corpuscular Volume 98.5 fl (80-94); Mean Platelet Volume 9.4 fl (7.4-10.4); Monocytes # 0.4 K/mm3 (0.1-1.0); Monocytes % 7.3 % (1.7-9.3); Neutrophils # 3.9 K/mm3 (1.8-7.8); Neutrophils % 71.3 % (37.0-80.0); Platelet Count 274 K/mm3 (142-424); Red Blood Count 3.98 M/mm3 (4.60-6.20); Red Cell Distribution Width 18.9 % (11.5-17.5); White Blood Count 5.5 K/mm3 (4.8-10.8)
[2022-10-15 17:39] LABS: Alanine Aminotransferase 23 U/L (12-78); Albumin Level 3.1 g/dl (3.5-5.0); Albumin/Globulin Ratio 0.9 (1.1-1.8); Alkaline Phosphatase 141 U/L (38-126); Anion Gap 7.7 mEq/L (5-15); Aspartate Amino Transferase 28 U/L (17-59); Bilirubin,Total 0.3 mg/dl (0.2-1.3); Blood Urea Nitrogen 64 mg/dl (9-20); Calcium 7.8 mg/dl (8.4-10.2); Carbon Dioxide 27 mmol/L (22.0-30.0); Chloride 108 mmol/L (98-107); Creatinine Clearance Estimated 37 mL/min (50-200); Estimated Glomerular Filt Rate 29 ml/min (>60); GFR (African American) 35 ML/MIN (>60); Globulin 3.5 g/dL (1.3-3.2); Glucose 90 mg/dl (74-100); Potassium 5.7 mmoL/L (3.5-5.1); Sodium 137 mmol/L (136-145); Total Protein,Serum 6.6 g/dl (6.3-8.2)
[2022-10-15 17:40] LABS: Lactic Acid 0.9 mmol/L (0.7-2.1)
[2022-10-15 17:44] LABS: C-Reactive Protein 64.7 mg/L (0-4)
[2022-10-15 17:50] LABS: NT Pro Brain Natriuretic Pep. 8740 pg/mL (0-125)
[2022-10-15 17:54] LABS: Microscopic, Urine URINE MICROSCOPIC (MICROSCOPIC)
[2022-10-15 17:55] LABS: Appearance,Urine CLEAR (Clear); Blood, Urine Negative (Negative); Color,Urine YELLOW (Yellow); Glucose,Urine (UA) Negative (Negative); Ketones,Urine TRACE (Negative); Leukocyte Esterase,Urine 1+ (Negative); Nitrate,Urine Negative (Negative); Protein,Urine TRACE (Negative); Specific Gravity, Urine 1.025 (1.005-1.030); Urobilinogen,Urine 0.2 EU/dl (0.2)
[2022-10-15 17:56] LABS: Bilirubin,Urine 1+ (Negative)
[2022-10-15 17:58] LABS: Coronavirus 19, PCR Not Detected (NotDetected); Influenza A, PCR Not Detected (NotDetected); Influenza B, PCR Not Detected (NotDetected)
[2022-10-15 17:58] LABS: Procalcitonin 0.072 ng/mL (0.0-2.0)
--- NOTE | 2022-10-15 18:02 | HMH.EDGENADL ---
Discharge Plan Disposition Patient Disposition: Admitted As Inpatient Condition: Fair Clinical Impressions Clinical Impression: SUGEY (acute kidney injury), Volume overload Discharge ED Provider: Kaiden Hardin General Adult HPI General Chief complaint: Weakness Stated complaint: failure to thrive Time Seen by Provider: 10/15/22 17:15 Mode of Arrival: EMS Source of Information: Patient and EMS Limitations: Physical Limitations Description of Symptoms (Recalled from ER Triage Doc. by RN): pt brought in via ems for weakness and lethargy. pts called ems stating pt was not acting like himself, he was not as alert as normal. pts repots not eating or drinking as much. pt has extensive past medical history and was just a recent admit to second floor. History of Present Illness HPI narrative: Patient is a 61-year-old male well-known to the ER as well as the hospital who presents with concern for a weakness and lethargy. EMS reports that the patient has not really been able to take care of himself. History obtained additionally from himself as well as his . They report that he has not been eating and drinking very well over the last couple of days since discharge. During his admission they tried to get him placed in a facility but were ultimately unable to due to multiple reasons. His last admission he had substantial volume overload as well as an acute kidney injury. He is able to answer all his questions here. He denies any chest or abdominal pain. Denies any fever or chills. His states that she is unable to care for him at this time. Related Data Home Medications Medication Instructions Recorded Confirmed cyclobenzaprine 5 mg tablet 5 mg PO BID muscle spasms 01/20/20 10/15/22 lisinopril 40 mg tablet 40 mg PO DAILY blood pressure 02/15/21 10/15/22 atorvastatin 20 mg tablet 20 mg PO HS Cholesterol 08/30/21 10/15/22 insulin detemir U-100 100 unit/mL 20 unit SQ HS Diabetes 08/30/21 10/15/22 subcutaneous solution (Levemir U-100 Insulin) rivaroxaban 20 mg tablet 20 mg PO QPMWITHMEAL Blood thinner 08/30/21 10/15/22 trazodone 100 mg tablet 100 mg PO HS sleep 08/30/21 10/15/22 cabozantinib 60 mg tablet 60 mg PO 0630 thyroid cancer 12/28/21 10/15/22 doxazosin 1 mg tablet 1 mg PO HS blood pressure 12/28/21 10/15/22 pantoprazole 40 mg tablet,delayed 40 mg PO DAILY acid reflux 01/03/22 10/15/22 release magnesium oxide 800 mg PO BID Supplement 07/28/22 10/15/22 potassium chloride 10 mEq 10 meq PO BID potassium replacement 07/28/22 10/15/22 capsule,extended release nebivolol 20 mg tablet 20 mg PO HS blood pressure 08/09/22 10/15/22 ferrous sulfate 325 mg (65 mg 650 mg PO TIDWMEAL iron supplement 08/10/22 10/15/22 iron) tablet ipratropium 20 mcg-albuterol 100 1 puff inhalation Q6HP PRN 08/10/22 10/15/22 mcg/actuation mist for inhalation Shortness Of Breath (Combivent Respimat) albuterol sulfate 90 mcg/actuation 2 puff inhalation Q6H PRN 08/29/22 10/15/22 aerosol inhaler breathing problems diphenhydramine HCl 25 mg capsule 50 mg PO HS PRN allergies 08/29/22 10/15/22 (Benadryl) diphenoxylate-atropine 2.5 1 - 2 tab PO QID diarrhea 08/29/22 10/15/22 mg-0.025 mg tablet fluticasone propionate 50 1 spray intranasal DAILY Allergy 08/29/22 10/15/22 mcg/actuation nasal symptoms spray,suspension insulin aspart U-100 100 unit/mL 10 sliding scale dose SQ DAILY 08/29/22 10/15/22 subcutaneous solution (Novolog Diabetes U-100 Insulin aspart) sennosides 8.6 mg tablet (senna) 8.6 mg PO HS bowel movement 08/29/22 10/15/22 calcium carbonate 1,000 mg tablet 2,000 mg PO BID Heartburn 10/05/22 10/15/22 calcium citrate 1,000 mg tablet 1,200 mg PO TID Supplement 10/05/22 10/15/22 cyclobenzaprine 5 mg tablet 5 mg PO TID PRN Pain 10/05/22 10/15/22 acetaminophen 650 mg 1,300 mg PO BID Pain 10/06/22 10/15/22 tablet,extended release hydrochlorothiazide 25 mg tablet 25 mg PO DAILY diuretic 10/06/22 10/15/22 levothyr
[2022-10-15 18:05] LABS: RBC,Urine Occasional #/hpf (0-3)
--- NOTE | 2022-10-15 18:24 | ECG_ITS ---
APPROVED REPORT Exam: Resting ECG HR:84 bpm ECG Measurements Heart Rate 84 AXES QRSd 86 QRS 101 QT 359 T 76 QTc 400 Conclusion ATRIAL FIBRILLATION RIGHT AXIS DEVIATION [QRS AXIS > 100] LOW QRS VOLTAGE [QRS DEFLECTION < 0.5/1.0 mV IN LIMB/CHEST LEADS] POSSIBLE ANTERIOR MYOCARDIAL INFARCTION , PROBABLY OLD [30 ms Q WAVE IN V3/V4, OR R < 0.2 mV IN V4] ABNORMAL ECG UNCONFIRMED REPORT Electronically signed by : Richie Coulter MD 10/16/2022 20:34:57
--- NOTE | 2022-10-15 18:32 | PC.NURSE ---
pt was uncomfortable so Mayda Martins alexia, Morgan and myself got old sheets out and placed a sheet and chucks under pt and turned pt on left side do to have an open wound in the center of [place] area. ER md did exam wound when we turned pt and readjusted in the bed
--- NOTE | 2022-10-15 19:07 | PC.NURSE ---
Dr. Yfn crawford
--- NOTE | 2022-10-15 19:21 | PC.NURSE ---
Dr. Coulter paged again
--- NOTE | 2022-10-15 19:26 | PC.NURSE ---
Dr. Hardin speaking with Dr. Coulter
--- NOTE | 2022-10-15 19:26 | PC.NURSE ---
on phone with dr gary
--- NOTE | 2022-10-15 19:37 | PC.NURSE ---
PATIENT ADMITTED TO 200 OBSERVATION WITH DX OF SUGEY AND CHF TO SERVICE OF DR. TAVERAS TO DR. JANG.
--- NOTE | 2022-10-15 19:38 | PC.NURSE ---
House notified of pt admission
--- NOTE | 2022-10-15 20:10 | PC.NURSE ---
Called report to Hans MENDOZA on 2nd floor
--- NOTE | 2022-10-15 21:07 | PC.NURSE ---
Pt. arrived to floor by bed at 2106
[2022-10-15 21:29] LABS: POC Glucose,Bedside 80 (70-110)
--- NOTE | 2022-10-15 22:44 | PC.NURSE ---
spoke with charge and pt will get his meds in the am.
[2022-10-16 01:43] LABS: POC Glucose,Bedside 82 (70-110)
[2022-10-16 03:49] VITALS: BP 94/68; PULSE 100; RESP 22; TEMP 35.9; O2SAT 98; BMI 51.5
--- NOTE | 2022-10-16 05:54 | PC.NURSE ---
Pt is aox 2 with confusion, turn q2 on a speciality bed, 20g left hand and a 20 g in the right fa, getting one L OF LR at 100 ml/hr then sl, stage 4 on buttock with pictures in chart, getting heparin for preventing VTE, ON 02 2N NC sats in the 90's, states she will get patient's cancer pill and bring it in this am.
[2022-10-16 07:03] LABS: Chloride 110 mmol/L (98-107)
[2022-10-16 07:04] LABS: Potassium 5.9 mmoL/L (3.5-5.1); Sodium 140 mmol/L (136-145)
[2022-10-16 07:06] LABS: Alanine Aminotransferase 20 U/L (12-78); Alkaline Phosphatase 121 U/L (38-126); Aspartate Amino Transferase 28 U/L (17-59); Bilirubin,Total 0.3 mg/dl (0.2-1.3); Blood Urea Nitrogen 69 mg/dl (9-20); Creatinine Clearance Estimated 40 mL/min (50-200); Estimated Glomerular Filt Rate 32 ml/min (>60); GFR (African American) 39 ML/MIN (>60)
[2022-10-16 07:07] LABS: Albumin Level 2.7 g/dl (3.5-5.0); Albumin/Globulin Ratio 0.8 (1.1-1.8); Anion Gap 11.9 mEq/L (5-15); Calcium 7.6 mg/dl (8.4-10.2); Carbon Dioxide 24 mmol/L (22.0-30.0); Globulin 3.2 g/dL (1.3-3.2); Glucose 96 mg/dl (74-100); Total Protein,Serum 5.9 g/dl (6.3-8.2)
[2022-10-16 07:11] LABS: Basophils # 0.1 K/mm3 (0-0.2); Basophils % 0.9 % (0.1-2.0); Eosinophils # 0.5 K/mm3 (0.0-0.4); Eosinophils % 8.1 % (0.1-12.0); Hematocrit 38.1 % (42.0-52.0); Hemoglobin 10.8 g/dL (14.1-18.0); Lymphocytes # 0.7 K/mm3 (0.7-4.5); Lymphocytes % 12.8 % (10-50); Mean Corpuscular HGB Conc 28.3 g/dL (31.8-35.4); Mean Corpuscular Hemoglobin 28.5 pg (27.0-31.2); Mean Corpuscular Volume 100.7 fl (80-94); Mean Platelet Volume 8.7 fl (7.4-10.4); Monocytes # 0.5 K/mm3 (0.1-1.0); Monocytes % 9.8 % (1.7-9.3); Neutrophils # 3.8 K/mm3 (1.8-7.8); Neutrophils % 68.4 % (37.0-80.0); Platelet Count 229 K/mm3 (142-424); Red Blood Count 3.79 M/mm3 (4.60-6.20); Red Cell Distribution Width 19.2 % (11.5-17.5); White Blood Count 5.5 K/mm3 (4.8-10.8)
--- NOTE | 2022-10-16 07:42 | HMH.PHAINT1 ---
Pharmacy Intervention Comments: Reconciled patient's home mediations using pharmacy fill history and medication list from last recent admission.
[2022-10-16 07:51] VITALS: BP 109/69; PULSE 100; RESP 20; TEMP 36; O2SAT 100
--- NOTE | 2022-10-16 08:33 | EXP.HP ---
History of Present Illness *Admission Date: 10/15/22 *Reason for visit:: Altered mental status: Acute on chronic renal failure *History of present illness: Mr. Worthy is a 61-year-old male with a rather difficult medical history to include type 2 diabetes mellitus, hypertension, asthma, arthritis, metastatic follicular thyroid carcinoma, bone metastases, history of DVT and pulmonary embolism, ASCVD status post coronary stent, peptic ulcer disease., Morbid obesity, pathological compression fracture of the thoracic vertebrae 2021, bilateral below the knee amputations and an extensive coccyx wound. 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 He was discharged to home with home health when unable to find a facility to care for him. He also was recently been at [facility] in [place] for primary care at which time he was discharged home because patient did not want to switch to long-term care. His has been totally caring for him at home by herself with home health attendance 1 time since discharge. Apparently they can only come 1 time a week. He does not get out of bed. He has been eating very poorly and had nothing to eat or drink yesterday. He has had minimal urinary output. His bowels have been moving sometimes daily. has had difficulty with cleaning him and turning him by herself. His noticed a change in his mental status yesterday when he went from being lethargic to sometimes being obtunded. This is when she brought him to the ER for evaluation. This a.m. patient cannot answer questions. He mostly just stares into space. He did take a few sips of juice for breakfast this morning. With turning for evaluation patient demonstrates extreme pain. He does remain somewhat anemic with a hemoglobin of 10.8 and white blood cell count is normal. Blood chemistries show an elevated potassium at 5.9 with BUN of 69 and a creatinine of 2.1. BNP on admission was 8740. Calcium remains low at 7.6 [facility] Disclaimer: The information contained in this section may have been updated after the patient was seen, as this information can be updated by other users. Medical History Abscess Abscess of skin or subcutaneous tissue Acute pulmonary embolus Acute UTI Amputation of fifth toe of right foot Anemia Asthma Asthma Atypical angina Cellulitis Charcot foot due to diabetes mellitus Cholecystitis Chronic obstructive pulmonary disease Conjunctivitis, right eye Coronary artery disease COVID-19 Dehiscence of incision Diabetes 1.5, managed as type 1 Diabetic ulcer of right foot Diabetic ulcer of right midfoot associated with type 2 diabetes mellitus, with fat layer exposed Dizziness DVT (deep venous thrombosis) Dyspnea Enterococcus faecalis infection Ex-smoker Facial weakness Headache History of cancer chemotherapy History of cancer chemotherapy History of DVT (deep vein thrombosis) History of intestinal obstruction History of left below knee amputation History of left below knee amputation History of peptic ulcer History of peptic ulcer disease History of peptic ulcer disease History of pulmonary embolus (PE) Hypersomnolence Hypertension Hypoalbuminemia Hypocalcemia Hypomagnesemia Hypomagnesemia Involuntary movements Klebsiella infection Laceration of right ring finger [facility] current use of anticoagulant therapy Lumbar radiculopathy Lumbar radiculopathy Malignant neoplasm metastatic to lung Nausea Nausea vomiting and diarrhea Near syncope Non-compliance Numbness
--- NOTE | 2022-10-16 10:29 | HMH.PTWOUND ---
Rehab Inpt Wound Evaluation Rehab IP Wound Evaluation Start: 10/16/22 09:03 Freq: NEEDED Status: Active Protocol: Document 10/16/22 10:22 PHORNE (Rec: 10/16/22 10:29 PHORNE [id number]) Rehab PT Wound Assessment Subjective Subjective 61 yowm adm to [facility] with AMS and general malaise with hx of thyoid cancer with mets to bone and lungs. Was just released from the hospital several days ago and now with worsening condition. He presents with a Sacral pressure injury that is chronic and has been present for > 1 yr. He has hx of DM-II with B LE BKA as well. 2+ pitting edema noted to B LE and abdomen this am. Wound Sacrum Wound Type Pressure Ulcer Is This a Chronic Wound Yes Wound Staging Stage IV Query Text:Stage I - Unbroken, red skin, no blanching. Stage II - Skin broken, superficial skin loss involving epidermis alone or also dermis. Partial loss of skin layers. Stage III - Pressure area involves epidermis, dermis and subcutaneous tissue, full thickness skin loss. Stage IV - Pressure area involves epidermis, subcutaneous tissue, bone and other supportive tissue. Full thickness skin loss with extensive destruction of underlying tissue and structures. Wound Length (cm) 4.0 Wound Width (cm) 2.0 Wound Depth (cm) 1.5 Wound Bed Appearance Beefy Red Percentage Granulated (%) 100 Wound Margins Description Well Defined Surrounding Tissue Appearance [place] Wound Drainage Description Serosanguineous Drainage Amount Moderate Drainage Odor No Odor Dressing Status Changed Packing Type Alginate Primary Dressing Composite Wound Debridement Method Mechanical Wound Debridement Amount of Tissue None Removed Dressing Change Patient Tolerance Tolerated Poorly Plan/Recommendation Comment Wound dressing is appropriate per nsg plan of care. Continue dressing changes as necessary with composite foam dressing and calcium alginate packing
--- NOTE | 2022-10-16 11:13 | CARE MANAGER ---
Addendum entered by Valeria Bello RN 10/18/22 13:19: Patient will discharge to [facility] today, and transported by EMS. No COVID swab is required prior to discharge. Addendum entered by Valeria Bello RN 10/17/22 15:20: Patient is now agreeable to go to [facility], awaiting call back from [facility] in regards to bed availability/offer. Addendum entered by Valeria Bello RN 10/17/22 14:14: Hospice was consulted this morning, per Orquidea Naqvi patient will be admitted to inpatient hospice this afternoon if placement is not secured today. I have faxed referral to [facility], [facility] and [facility] per Hospice's request. Patient was offered a bed @ [facility] today and patient and spouse refused. Plan is to admit to inpatient hospice this afternoon. CM will continue to work with Hospice to facilitate either discharge to facility or to home. Addendum entered by Valeria Bello RN 10/16/22 15:50: I have contacted/faxed several SNF/ICF today. I have been told that they can not meet his needs by [facility], [facility], [facility], [facility], and [facility]. I am waiting to hear back from [facility] in [facility], [facility] [place] and [facility] in [place]. CM will continue to follow. Original Note: CM met with patient and spouse to discuss discharge planning. Spouse is unable to care for patient, and is requesting a shelter care facility. I will work on finding a bed, however patient may need to discharge home with Hospice. is aware that if a facility can not be found, she will have to take patient home. CM will continue to work on discharge planning.
[2022-10-16 11:49] LABS: POC Glucose,Bedside 117 (70-110)
[2022-10-16 12:28] VITALS: BMI 51.4
--- NOTE | 2022-10-16 14:47 | DIET.NUTRFU ---
Based on poor po intake this admit will start supplements with meals he likes strawberry.
--- NOTE | 2022-10-16 14:47 | HMH.OTEV ---
OT Inpatient Evaluation Rehab OT IP Evaluation Start: 10/16/22 13:05 Freq: ONCE Status: Active Protocol: Document 10/16/22 14:11 CHERIE (Rec: 10/16/22 14:47 CHERIE [id number]) Rehab OT IP Assessment Subjective History Mr. Worthy is a 61-year-old male with a rather difficult medical history to include type 2 diabetes mellitus, hypertension, asthma, arthritis, metastatic follicular thyroid carcinoma, bone metastases, history of DVT and pulmonary embolism, ASCVD status post coronary stent, peptic ulcer disease., Morbid obesity, pathological compression fracture of the thoracic vertebrae 2021, bilateral below the knee amputations and an extensive coccyx wound. 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 He was discharged to home with home health when unable to find a facility to care for him. He also was recently been at [facility] in [place] for primary care at which time he was discharged home because patient did not want to switch to long-term care. His has been totally caring for him at home by herself with home health
--- NOTE | 2022-10-16 15:02 | HMH.PTEV ---
Physical Therapy Evaluation Rehab PT IP Evaluation Start: 10/16/22 13:05 Freq: ONCE Status: Active Protocol: Document 10/16/22 15:00 AAYUSH (Rec: 10/16/22 15:02 PHOCARLIE [id number]) Subjective/History History History 61 yowm adm to [facility] with AMS and general malaise with hx of thyoid cancer with mets to bone and lungs. Was just released from the hospital several days ago and now with worsening condition. He presents with a Sacral pressure injury that is chronic and has been present for > 1 yr. He has hx of DM-II with B LE BKA as well. 2+ pitting edema noted to B LE and abdomen this am. Subjective Subjective Pt c/o pain with any movments in bed. Rehab PT IP Eval Objective Appearance Patient Behavior Confused Patient Orientation Person Difficulty following instructions moderate Speech Pattern Clear Ambulation Patient Able to Ambulate No Balance Ability to Arise Unable Sitting Balance Leans or slides in chair Transfers Bed Transfer Ability Maximum x 2 (75% assist) Rehab PT IP prob,goals,plan Problems Date of Evaluation: 10/16/22 PT IP Problems Bed Mobility,Transfers Rehab Potential Rehab Potential Fair Plan PT Intervention Plan Bed Mobility,Transfers PT Plan Frequency Daily Duration LOS Discharge Goals Bed Transfer Ability Maximum x 1 (75% assist) Discharge Plan PT Discharge Plan Pt is currently most appropriate for SNF placement with significant assist required for all mobility at this time. G -code Required No Eval Complexity Eval Charge Codes 69688 - Moderate Complexity PHYSICIAN CERTIFICATION: I certify the specified therapy services for Can Worthy are required, authorized, and reviewed every 30 days.
[2022-10-16 15:53] VITALS: BP 109/61; PULSE 108; RESP 18; TEMP 36.9; O2SAT 97
[2022-10-16 17:11] LABS: POC Glucose,Bedside 155 (70-110)
--- NOTE | 2022-10-16 17:28 | PC.NURSE ---
Patient alert to self during shift but confused to place, time, and situation. Patient cooperative and follows commands. Lung sounds diminished. No pain reported.
[2022-10-16 20:00] VITALS: BP 119/68; PULSE 107; RESP 18; TEMP 36.4; O2SAT 96; O2SAT 98
[2022-10-16 21:15] LABS: POC Glucose,Bedside 138 (70-110)
[2022-10-17] VITALS: BP 119/77; PULSE 109; RESP 18; TEMP 36.6; O2SAT 98
--- NOTE | 2022-10-17 03:58 | PC.NURSE ---
Pt. feliz times 2 on my shift. He is a turn every two hours and did take his pills for me this shift. No other changes noted.
[2022-10-17 04:00] VITALS: BP 119/73; PULSE 86; RESP 20; TEMP 36.6; O2SAT 92; BMI 51.5
[2022-10-17 05:23] LABS: POC Glucose,Bedside 124 (70-110)
[2022-10-17 08:00] VITALS: BP 121/76; PULSE 114; RESP 18; TEMP 36.3; O2SAT 99
--- NOTE | 2022-10-17 08:05 | EXP.ACUTE.PN ---
Subjective *Date: 10/17/22 *Time: 08:51 Interval history: is at bedside. She states he drank a little yesterday which included protein shakes. He has had an adequate urinary output with Carter catheter in place.. She may see a little improvement in his mental status. Medical Exam Vital signs and Labs for Last 24 Hours: Vital Signs Temp Pulse Resp BP Pulse Ox 10/17/22 04:00 97.9 F 86 20 119/73 92 L 10/17/22 00:00 97.8 F 109 H 18 119/77 98 10/16/22 20:00 96 10/16/22 20:00 97.6 F 107 H 18 119/68 98 10/16/22 15:53 98.5 F 108 H 18 109/61 L 97 Intake and Output 10/16/22 10/17/22 10/17/22 19:59 03:59 11:59 Output Total 1200 / 1200 0 / 1200 700 / 1900 Balance -1200 / -1200 0 / -1200 -700 / -1900 Output: Output, Urine Amount 1200 / 1200 0 / 1200 700 / 1900 Other: Number of Unmeasured Voids 0 0 0 Weight 388 lb 0.217 oz 388 lb 10.799 oz Patient Weight 10/17/22 11:59 Weight 388 lb 10.799 oz Laboratory Results - last 24 hr 10/16/22 11:21: POC Glucose 117 H 10/16/22 16:06: POC Glucose 155 H 10/16/22 21:04: POC Glucose 138 H 10/17/22 05:12: POC Glucose 124 H I & O for Labs for Last 24 Hours: Intake & Output 10/14/22 10/15/22 10/16/22 10/17/22 11:59 11:59 11:59 11:59 Intake Total 1000 / 1000 Output Total 300 / 300 1900 / 1900 Balance 700 / 700 -1900 / -1900 Weight 388 lb 14.327 oz 388 lb 10.799 oz Microbiology Reports for the Last 24 Hours: Microbiology 10/15/22 17:49 Urine,Catheterized Urine Culture - Preliminary NO GROWTH AFTER 24 HOURS Head: Present atraumatic and normocephalic Respiratory: Present CTA bilaterally Cardiac: Present Irregularly Regular GI: Present soft and normal bowel sounds Comments:: Obese; Carter cath to bedside drainage (male): Present scrotal swelling Comment:: Bilateral thigh edema Neuro: Present Weakness Comment:: Speech is a little stronger today. He has very much difficulty in making any response. Assessment and Plan *Assessment and plan (1) Acute UTI: Status: Acute Category: Medical Code(s): N39.0 - Urinary tract infection, site not specified (2) CKD (chronic kidney disease): Status: Acute Category: Medical Code(s): N18.9 - Chronic kidney disease, unspecified (3) Morbid obesity: Status: Acute Category: Medical Code(s): E66.01 - Morbid (severe) obesity due to excess calories (4) Congestive heart failure: Status: Ruled-out Category: Medical Code(s): I50.9 - Heart failure, unspecified (5) Anemia: Status: Chronic Qualifiers: Anemia type: iron deficiency Iron deficiency anemia type: chronic blood loss Qualified Code(s): D50.0 - Iron deficiency anemia secondary to blood loss (chronic) Category: Medical Code(s): D64.9 - Anemia, unspecified (6) Chronic obstructive pulmonary disease: Status: Chronic Category: Medical Code(s): J44.9 - Chronic obstructive pulmonary disease, unspecified (7) Coronary artery disease: Status: Chronic Category: Medical Code(s): I25.10 - Atherosclerotic heart disease of [place] coronary artery without angina pectoris (8) Hypertension: Status: Chronic Category: Medical Code(s): I10 - Essential (primary) hypertension (9) Primary malignant neoplasm of thyroid gland metastatic to bone: Status: Chronic Category: Medical Code(s): C73 - Malignant neoplasm of thyroid gland; C79.51 - Secondary malignant neoplasm of bone (10) Type 2 diabetes mellitus: Status: Chronic Category: Medical Code(s): E11.9 - Type 2 diabetes mellitus without complications (11) Degenerative joint disease (DJD) of lumbar spine: Status: Chronic Category: Medical Code(s): M47.816 - Spondylosis without myelopathy or radiculopathy, lumbar region (12) Edema:
--- NOTE | 2022-10-17 11:18 | PC.NURSE ---
held am meds, per request. pt will squeeze hands when asked. will not follow any other commands, will not make eye contact. will respond to questions with short answers. pt stated no when asked if he was in pain. at bedside. spoke with the hospice nurse this morning.
[2022-10-17 11:26] LABS: POC Glucose,Bedside 141 (70-110)
--- NOTE | 2022-10-17 13:42 | EXP.ACUTE.PN ---
Subjective *Date: 10/17/22 *Time: 13:42 Medical Exam Vital signs and Labs for Last 24 Hours: Vital Signs Temp Pulse Resp BP Pulse Ox 10/17/22 08:00 97.3 F L 114 H 18 121/76 99 10/17/22 04:00 97.9 F 86 20 119/73 92 L 10/17/22 00:00 97.8 F 109 H 18 119/77 98 10/16/22 20:00 96 10/16/22 20:00 97.6 F 107 H 18 119/68 98 10/16/22 15:53 98.5 F 108 H 18 109/61 L 97 Intake and Output 10/16/22 10/17/22 10/17/22 23:59 07:59 15:59 Intake Total 120 / 120 Output Total 1200 / 1500 700 / 700 0 / 700 Balance -1200 / -500 -700 / -580 120 / -580 Intake: Intake, Oral Amount 120 / 120 Output: Output, Urine Amount 1200 / 1500 700 / 700 0 / 700 Other: Number of Voids 0 Number of Unmeasured Voids 0 0 1 Weight 388 lb 10.799 oz Patient Weight 10/17/22 23:59 Weight 388 lb 10.799 oz Laboratory Results - last 24 hr 10/16/22 16:06: POC Glucose 155 H 10/16/22 21:04: POC Glucose 138 H 10/17/22 05:12: POC Glucose 124 H 10/17/22 11:16: POC Glucose 141 H I & O for Labs for Last 24 Hours: Intake & Output 10/14/22 10/15/22 10/16/22 10/17/22 23:59 23:59 23:59 23:59 Intake Total 1000 / 1000 120 / 120 Output Total 1500 / 1500 700 / 700 Balance -500 / -500 -580 / -580 Weight 375 lb 388 lb 0.217 oz 388 lb 10.799 oz Microbiology Reports for the Last 24 Hours: Microbiology 10/15/22 17:49 Urine,Catheterized Urine Culture - Preliminary NO GROWTH AFTER 24 HOURS Assessment and Plan *Assessment and plan (1) Acute UTI: Status: Acute Category: Medical Code(s): N39.0 - Urinary tract infection, site not specified (2) CKD (chronic kidney disease): Status: Acute Category: Medical Code(s): N18.9 - Chronic kidney disease, unspecified (3) Morbid obesity: Status: Acute Category: Medical Code(s): E66.01 - Morbid (severe) obesity due to excess calories (4) Congestive heart failure: Status: Ruled-out Category: Medical Code(s): I50.9 - Heart failure, unspecified (5) Anemia: Status: Chronic Qualifiers: Anemia type: iron deficiency Iron deficiency anemia type: chronic blood loss Qualified Code(s): D50.0 - Iron deficiency anemia secondary to blood loss (chronic) Category: Medical Code(s): D64.9 - Anemia, unspecified (6) Chronic obstructive pulmonary disease: Status: Chronic Category: Medical Code(s): J44.9 - Chronic obstructive pulmonary disease, unspecified (7) Coronary artery disease: Status: Chronic Category: Medical Code(s): I25.10 - Atherosclerotic heart disease of [place] coronary artery without angina pectoris (8) Hypertension: Status: Chronic Category: Medical Code(s): I10 - Essential (primary) hypertension (9) Primary malignant neoplasm of thyroid gland metastatic to bone: Status: Chronic Category: Medical Code(s): C73 - Malignant neoplasm of thyroid gland; C79.51 - Secondary malignant neoplasm of bone (10) Type 2 diabetes mellitus: Status: Chronic Category: Medical Code(s): E11.9 - Type 2 diabetes mellitus without complications (11) Degenerative joint disease (DJD) of lumbar spine: Status: Chronic Category: Medical Code(s): M47.816 - Spondylosis without myelopathy or radiculopathy, lumbar region (12) Edema: Status: Acute Category: Medical Code(s): R60.9 - Edema, unspecified (13) Thyroid cancer: Status: Chronic Category: Medical Code(s): C73 - Malignant neoplasm of thyroid gland (14) COPD (chronic obstructive pulmonary disease): Status: Chronic Qualifiers: COPD type: unspecified COPD Qualified Code(s): J44.9 - Chronic obstructive pulmonary disease, unspecified Category: Medical Code(s): J44.9 - Chronic obstructive pulmonary dis
[2022-10-17 15:05] VITALS: BP 85/44; PULSE 118; RESP 18; TEMP 36.4; O2SAT 98
[2022-10-17 17:21] LABS: POC Glucose,Bedside 135 (70-110)
--- NOTE | 2022-10-17 17:43 | PC.NURSE ---
pt has became more alert t/o the shift, alert x3 right now. pt in bed awake, will make eye contact and answer questions. waiting on placement, poss call back from [employer] notified of am meds held,stated he is okay with that. stated if pt is awake and alert it is okay to give meds if he can swallow. pt has not c/o of n/v/p/. has been at bedside majority of shift. pt ref meals. cb within reach.
[2022-10-17 20:00] VITALS: BP 104/67; PULSE 103; RESP 22; TEMP 36.5; O2SAT 97; O2SAT 98
[2022-10-17 20:17] LABS: POC Glucose,Bedside 131 (70-110)
--- NOTE | 2022-10-18 02:32 | PC.NURSE ---
Pt. was aox x1- 2 at the beginning of the shift and refused his medications. He is on 02- 2l NC 96%, he also removed his o2 several times during the night, he has had several bowel movements with frequent bed changes. No other changes noted.
[2022-10-18 04:00] VITALS: BP 139/85; PULSE 103; RESP 18; TEMP 36.4; O2SAT 98; BMI 51.0
[2022-10-18 05:13] LABS: POC Glucose,Bedside 130 (70-110)
[2022-10-18 07:17] VITALS: BP 136/75; PULSE 106; RESP 20; TEMP 36.7; O2SAT 98
--- NOTE | 2022-10-18 08:24 | EXP.ACUTE.PN ---
Subjective *Date: 10/18/22 *Time: 08:24 Interval history: Patient is still weak but denies any pain. Barely eating anything. Only had a few bites of yogurt this am. His says he has been awake very little. Medical Exam Vital signs and Labs for Last 24 Hours: Vital Signs Temp Pulse Resp BP Pulse Ox FiO2 10/18/22 07:17 98.1 F 106 H 20 136/75 98 10/18/22 04:00 97.5 F L 103 H 18 139/85 98 10/17/22 23:11 28 10/17/22 20:00 97 10/17/22 20:00 97.7 F 103 H 22 104/67 L 98 10/17/22 15:05 97.6 F 118 H 18 85/44 L 98 Intake and Output 10/17/22 10/18/22 10/18/22 19:59 03:59 11:59 Intake Total 0 / 0 Output Total 500 / 1900 0 / 1900 1400 / 1900 Balance -500 / -1900 0 / -1900 -1400 / -1900 Intake: Intake, Oral Amount 0 / 0 Output: Output, Urine Amount 500 / 1900 0 / 1900 1400 / 1900 Other: Number of Unmeasured Voids 1 0 0 Number of Bowel Movements 1 2 Weight 384 lb 14.833 oz Patient Weight 10/18/22 11:59 Weight 384 lb 14.833 oz Laboratory Results - last 24 hr 10/17/22 11:16: POC Glucose 141 H 10/17/22 17:13: POC Glucose 135 H 10/17/22 20:10: POC Glucose 131 H 10/18/22 05:07: POC Glucose 130 H I & O for Labs for Last 24 Hours: Intake & Output 10/15/22 10/16/22 10/17/22 10/18/22 11:59 11:59 11:59 11:59 Intake Total 1000 / 1000 120 / 120 0 / 0 Output Total 300 / 300 1900 / 1900 1900 / 1900 Balance 700 / 700 -1780 / -1780 -1900 / -1900 Weight 388 lb 14.327 oz 388 lb 10.799 oz 384 lb 14.833 oz Microbiology Reports for the Last 24 Hours: Microbiology 10/15/22 17:49 Urine,Catheterized Urine Culture - Final NO GROWTH AFTER 48 HOURS Head: Present atraumatic and normocephalic Respiratory: Present CTA bilaterally Cardiac: Present Irregularly Regular GI: Present soft and normal bowel sounds Comments:: Obese; Carter cath to bedside drainage (male): Present scrotal swelling Comment:: Bilateral thigh edema Neuro: Present Weakness Comment:: Speech is a little stronger today. He has very much difficulty in making any response. Assessment and Plan *Assessment and plan (1) Acute UTI: Status: Acute Category: Medical Code(s): N39.0 - Urinary tract infection, site not specified (2) CKD (chronic kidney disease): Status: Acute Category: Medical Code(s): N18.9 - Chronic kidney disease, unspecified (3) Morbid obesity: Status: Acute Category: Medical Code(s): E66.01 - Morbid (severe) obesity due to excess calories (4) Congestive heart failure: Status: Ruled-out Category: Medical Code(s): I50.9 - Heart failure, unspecified (5) Anemia: Status: Chronic Qualifiers: Anemia type: iron deficiency Iron deficiency anemia type: chronic blood loss Qualified Code(s): D50.0 - Iron deficiency anemia secondary to blood loss (chronic) Category: Medical Code(s): D64.9 - Anemia, unspecified (6) Chronic obstructive pulmonary disease: Status: Chronic Category: Medical Code(s): J44.9 - Chronic obstructive pulmonary disease, unspecified (7) Coronary artery disease: Status: Chronic Category: Medical Code(s): I25.10 - Atherosclerotic heart disease of [place] coronary artery without angina pectoris (8) Hypertension: Status: Chronic Category: Medical Code(s): I10 - Essential (primary) hypertension (9) Primary malignant neoplasm of thyroid gland metastatic to bone: Status: Chronic Category: Medical Code(s): C73 - Malignant neoplasm of thyroid gland; C79.51 - Secondary malignant neoplasm of bone (10) Type 2 diabetes mellitus: Status: Chronic Category: Medical Code(s): E11.9 - Type 2 diabetes mellitus without complications (11) Degenerative joint disease (DJD) of lumbar spine: Status: Chronic Category: Medica
[2022-10-18 12:16] LABS: POC Glucose,Bedside 143 (70-110)
--- NOTE | 2022-10-18 13:11 | EXP.DC.SUM ---
General Admission date:: 10/15/22 Discharge date: 10/18/22 HPI HPI HPI: Mr. Worthy is a 61-year-old male with a rather difficult medical history to include type 2 diabetes mellitus, hypertension, asthma, arthritis, metastatic follicular thyroid carcinoma, bone metastases, history of DVT and pulmonary embolism, ASCVD status post coronary stent, peptic ulcer disease., Morbid obesity, pathological compression fracture of the thoracic vertebrae 2021, bilateral below the knee amputations and an extensive coccyx wound. 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 He was discharged to home with home health when unable to find a facility to care for him. He also was recently been at [facility] in [place] for primary care at which time he was discharged home because patient did not want to switch to long-term care. His has been totally caring for him at home by herself with home health attendance 1 time since discharge. Apparently they can only come 1 time a week. He does not get out of bed. He has been eating very poorly and had nothing to eat or drink yesterday. He has had minimal urinary output. His bowels have been moving sometimes daily. has had difficulty with cleaning him and turning him by herself. His noticed a change in his mental status yesterday when he went from being lethargic to sometimes being obtunded. This is when she brought him to the ER for evaluation. This a.m. patient cannot answer questions. He mostly just stares into space. He did take a few sips of juice for breakfast this morning. With turning for evaluation patient demonstrates extreme pain. He does remain somewhat anemic with a hemoglobin of 10.8 and white blood cell count is normal. Blood chemistries show an elevated potassium at 5.9 with BUN of 69 and a creatinine of 2.1. BNP on admission was 8740. Calcium remains low at 7.6 Hospital Course Hospital Course Hospital Course: Lily Bender had a long discussion with the patient's and she wanted to make him a DNR. She wanted a hospice consult. She also wanted him discharged to a facility for ongoing care if that was a possibility as she could not manage him at home any longer. The patient's mental status improved only slightly. He continued to eat very little. His urine culture showed no growth at 24 hours. Care management was consulted for discharge. The patient was seen and accepted by hospice for palliative care but care management was able to find the patient a bed at [facility]. His was in agreement and he will be discharged there today for palliative care. Exam Data for Last 24 hours Vital signs and Labs for Last 24 Hours: Temp Pulse Resp BP Pulse Ox FiO2 98.1 F 106 H 20 136/75 98 28 10/18/22 07:17 10/18/22 07:17 10/18/22 07:17 10/18/22 07:17 10/18/22 07:17 10/17/22 23:11 Laboratory Results - last 24 hr 10/17/22 17:13: POC Glucose 135 H 10/17/22 20:10: POC Glucose 131 H 10/18/22 05:07: POC Glucose 130 H 10/18/22 12:09: POC Glucose 143 H I & O for Last 24 hours: Intake & Output 10/16/22 10/17/22 10/18/22 10/19/22 11:59 11:59 11:59 11:59 Intake Total 1000 / 1000 120 / 120 120 / 120 Output Total 300 / 300 1900 / 1900 1900 / 1900 Balance 700 / 700 -1780 / -1780 -1780 / -1780 Weight 388 lb 14.327 oz 388 lb 10.799 oz 384 lb 14.833 oz Microbiology Reports for the Last 24 Hours: Microbiology 10/15/22 17:49 Urine,Catheterized Urine Culture - Final NO GROWTH AFTER 48 HOURS Narrative: Const
--- NOTE | 2022-10-19 13:35 | CARE MANAGER ---
Contacted [facility] to follow up on patient's hospital discharge. They state they received everything they need an dhe is doing ok. Deny any questions or concerns at this time. KELLY Harp
== END 2022-10-18 14:57 ==
LOC: ER 19:13 → 2ND 19:56
PROVIDERS: Admitting Provider Internal Medicine Adolescent Medicine; Emergency Provider Student in an Organized Health Care Education/Training Program; PCP Family Medicine; Visit Provider Family Medicine
DX: N17.9 Acute kidney failure, unspecified (principal); N39.0 Urinary tract infection, site not specified; N18.9 Chronic kidney disease, unspecified; E66.01 Morbid (severe) obesity due to excess calories; I50.9 Heart failure, unspecified; D50.0 Iron deficiency anemia secondary to blood loss (chronic); J44.9 Chronic obstructive pulmonary disease, unspecified; I25.10 Atherosclerotic heart disease of native coronary artery without angina pectoris; I13.0 Hypertensive heart and chronic kidney disease with heart failure and stage 1 through stage 4 chronic kidney disease, or unspecified chronic kidney disease; C73 Malignant neoplasm of thyroid gland; C79.51 Secondary malignant neoplasm of bone; E11.22 Type 2 diabetes mellitus with diabetic chronic kidney disease; Z79.01 Long term (current) use of anticoagulants; Z79.4 Long term (current) use of insulin; Z79.899 Other long term (current) drug therapy; I48.91 Unspecified atrial fibrillation; L89.153 Pressure ulcer of sacral region, stage 3; Z79.810 Long term (current) use of selective estrogen receptor modulators (SERMs); Z86.16 Personal history of COVID-19; Z68.43 Body mass index [BMI] 50.0-59.9, adult; Z87.891 Personal history of nicotine dependence; Z66 Do not resuscitate; Z20.822 Contact with and (suspected) exposure to COVID-19; E87.70 Fluid overload, unspecified
CPT/HCPCS: G0378; 36415; 80053; 81001; 82962; 83605; 83880; 84145; 85025; 86140; 87086; 93005; 97162; 97165; 99285; C9803; U0003; U0005